=== PATIENT | female | born 1955 | race Caucasian/White ===

== ENCOUNTER 2017-01-10 16:57 | Inpatient (IN) | payer BC ==
[2017-01-10 17:51] LABS: #Lymphocytes 1.3 thou/uL (1.20-3.40); #Neutrophils 10.5 thou/uL (1.40-6.50); %Basophils 0.2 % (0.0-1.0); %Eosinophils 0.1 % (0.0-10.0); %Lymphocytes 9.6 % (21.0-51.0); %Monocytes 14.2 % (0.0-10.0); Hematocrit 28.7 % (36.0-47.0); Mean Platelet Volume 7.2 fL (7.4-10.4); Red Blood Cell (RBC) Count 3.09 mill/uL (4.20-5.40); White Blood Cell (WBC) Count 13.8 thou/uL (4.8-10.8)
[2017-01-10 17:57] LABS: PTT 34.4 SEC (22.9-36.1); Prothrombin Time 16.1 SEC (12.0-14.7)
[2017-01-10 18:11] LABS: Bilirubin Negative (Negative); Blood, Urine Moderate (Negative); Glucose, Urine (Dipstick) 100 mg/dL (Negative); Ketone, Urine Negative (Negative); Protein, Urine (Dipstick) 100 mg/dL (Neg-Trace)
[2017-01-10 18:12] LABS: Nitrite Positive (Negative); Urobilinogen 0.2 mg/dL (0.2-1.0)
[2017-01-10 18:17] LABS: ALT (SGPT) Less than 7 U/L (8-55); AST (SGOT) 6 U/L (5-34); Alkaline Phosphatase 76 U/L (40-150); Anion Gap 14 mmol/L (10-20); BUN (Urea Nitrogen) 22 mg/dL (9.8-20.1); Bilirubin, Total 0.5 mg/dL (0.2-1.2); Calc. Creatinine Clearance 0 mL/min (70-130); Carbon Dioxide 21 mmol/L (23-31); Chloride 102 mmol/L (98-107); Estimated GFR-MDRD 36; Globulin 3.2 g/dL (2.4-3.5); Lipase Less than 4 U/L (8-78); Protein, Total 5.9 g/dL (6.0-8.3)
[2017-01-10 18:20] LABS: Troponin I Less than 0.010 ng/mL (< 0.028)
[2017-01-10 18:24] LABS: Magnesium 0.9 mg/dL (1.6-2.6)
[2017-01-10 18:30] LABS: Bacteria/HPF 4+ HPF (None Seen); Hyaline Casts/LPF 0-3 HYALINE CAST LPF (0-3 Hyaline)
[2017-01-10] MEDS ORDERED: Fentanyl 100 MCG/2 ML VIAL ONE (18:31)
[2017-01-10] MEDS ORDERED: Magnesium Sulfate 2 GM/100 ML BAG ONE ×2 (18:31→19:39)
[2017-01-10 18:37] LABS: Amphetamine Not Detected (NotDetected); Methadone Not Detected (NotDetected); Methamphetamine Not Detected (NotDetected)
[2017-01-10 18:47] LABS: Yeast-All Forms None Seen HPF (None Seen)
[2017-01-10 18:51] LABS: Salicylate Less than 8.0 mg/dL (15.0-30.0)
--- NOTE | 2017-01-10 19:16 | RAD ---
AP CHEST: Indication: Fever, not feeling well for the last seven days. Comparison: 11-04-16 FINDINGS: There is patchy opacity within the right lung base suspicious for pneumonia. Mild cardiomegaly is st able. No acute osseous abnormality is evident. IMPRESSION: Findings suspicious for right lower lobe pneumonia. Radiographic follow up to resolution is recommen ded. POS: [facility]
[2017-01-10] MEDS ORDERED: cefTRIAXone\\ROCEPHIN 1 GM VIAL ONE (19:38)
[2017-01-10] MEDS ORDERED: Sodium Chloride 0.9% 100 ML ONE (19:38)
[2017-01-10] MEDS ORDERED: GENTAMICIN SULFATE IVPB SCH (20:00)
[2017-01-10] MEDS ORDERED: SODIUM CHLORIDE 0.9% IVPB SCH (20:00)
--- NOTE | 2017-01-10 20:16 | CT ---
CT OF THE BRAIN WITHOUT CONTRAST: Indication: 61-year-old female with history of nausea, vomiting, and diarrhea for 7 days. Patient escalera s a history of hypertension and reports history of Xanax abuse and opioid use. Patient is having alt ered mental status. Comparison: 12-28-15 FINDINGS: The skull and extracranial soft tissues are within normal limits. There is stable generalized cerebral atrophy. There is stable chronic small vessel white matter ischemic change. No acute infarct, hemorrhage, or hydrocephalus is present. Septum pellucidum and third ventricle are midline. IMPRESSION: No acute intracranial abnormality. POS: [facility]
--- NOTE | 2017-01-10 20:21 | CT ---
CT OF THE ABDOMEN AND PELVIS WITH IV CONTRAST: Indication: 61-year-old female with reports of nausea, vomiting, and diarrhea for 7 days. Patient al so reports abdominal pain with fever and night sweats. Comparison: 10-04-16 FINDINGS: ABDOMEN: The lung bases are clear. The gallbladder is surgically absent. The liver, spleen, pancreas, and adrenal glands are normal appearing. There is small hiatal hernia. There has been interval development of mild bilateral perinephric stranding with mild urothelial enh ancement involving the right renal pelvis and right ureter. There is wall thickening with perivesicu lar fat stranding involving the bladder. There are renal vascular calcifications bilaterally. No enlarged lymph nodes are evident. There are severe vascular calcifications involving the abdominal aorta and pelvic vasculature. PELVIS: The uterus is not visualized and presumed to be surgically absent. The unopacified large and small bowel appear within normal limits. The appendix is normal in the rig ht lower quadrant. No drainable fluid collection is evident. OSSEOUS STRUCTURES: There is grade I anterolisthesis of L4 on L5. There is moderate to severe spondylosis of the lumbar spine. There is vacuum disc phenomenon at L4-5 with modic endplate degenerative changes likely relat ed to disc instability. IMPRESSION: 1. Findings suspicious for cystitis and bilateral ascending urinary tract infections. Pyelonephritis is also suspected. No drainable fluid collection is evident. 2. Small hiatal hernia. 3. Cholecystectomy. 4. Hysterectomy. 5. Severe disc degenerative and osteoarthritic change at L4-5 with moderate multilevel spondylosis o f the lumbar spine. POS: [facility]
--- NOTE | 2017-01-10 20:29 | PDOC.EVN ---
Event Note - Event Note Event Note: [id number] h&p dictated 1. UTI + Possible pyelonephritis 2. Nausea and vomiting and diarrhea 3. SAMMIE 4. Hypomagnesemia 5. Sepsis plan: see orders
[2017-01-10] MEDS ORDERED: Acetaminophen 325 MG TAB PO PRN (20:58)
[2017-01-10] MEDS ORDERED: Mometasone/Formoterol 120 PUFF INHALER INH PRN (21:01)
[2017-01-10 21:15] LABS: Troponin I Less than 0.010 ng/mL (< 0.028)
[2017-01-10 23:58] LABS: Troponin I Less than 0.010 ng/mL (< 0.028)
[2017-01-11] MEDS: Methocarbamol 500 MG TAB PO SCH ×6 (00:10→21:21)
[2017-01-11] MEDS: Famotidine 20 MG TAB PO SCH ×3 (00:12→21:22)
[2017-01-11] MEDS: Heparin 5,000 UNITS/ML VIAL SC SCH ×4 (00:12→21:20)
[2017-01-11] MEDS: Sodium Chloride 0.9% 1,000 ML IV SCH ×3 (00:13→22:40)
[2017-01-11] MEDS: Piperacillin/Tazobactam 3.375 GM in Sodium Chloride 0.9% 100 ML IVPB SCH ×4 (00:15→18:00)
[2017-01-11] MEDS: HYDROcodone/Acetaminophen 5/325 mg Tablet PO PRN ×2 (00:19→10:47)
[2017-01-11 05:19] LABS: #Basophils 0.1 thou/uL (0.0-0.2); #Eosinphils 0.1 thou/uL (0.0-0.7); #Lymphocytes 1.9 thou/uL (1.20-3.40); #Monocytes 1.4 thou/uL (0.11-0.59); #Neutrophils 8.1 thou/uL (1.40-6.50); %Basophils 0.7 % (0.0-1.0); %Eosinophils 0.6 % (0.0-10.0); %Lymphocytes 16.1 % (21.0-51.0); %Monocytes 12.1 % (0.0-10.0); Hematocrit 27.7 % (36.0-47.0); Mean Platelet Volume 6.9 fL (7.4-10.4); Red Blood Cell (RBC) Count 2.99 mill/uL (4.20-5.40); White Blood Cell (WBC) Count 11.4 thou/uL (4.8-10.8)
[2017-01-11 05:42] LABS: Anion Gap 10 mmol/L (10-20); BUN (Urea Nitrogen) 24 mg/dL (9.8-20.1); Calc. Creatinine Clearance 54 mL/min (70-130); Calcium 8.5 mg/dL (7.8-10.44); Carbon Dioxide 25 mmol/L (23-31); Chloride 103 mmol/L (98-107); Estimated GFR-MDRD 36; Magnesium 2.4 mg/dL (1.6-2.6)
--- NOTE | 2017-01-11 06:52 | HP ---
CHIEF COMPLAINT: Nausea, vomiting, and diarrhea. HISTORY OF PRESENT ILLNESS: The patient is a 61-year-old female with past medical history of hypert ension, hyperlipidemia, has having vomiting and diarrhea for the past 1 week; 2 to 3 episodes of loo se watery bowel movement and also complains of vomiting 2 to 3 episodes. The patient was extremely weak. The patient was also complaining of dysuria and increased frequency and micturition for the p ast few days. The patient was feeling very tired, so she called paramedics. Upon paramedics' arriv al, the patient was found to have blood pressure of 80/60s, so the patient was brought to the ER. T he patient was given fluid bolus and blood pressure improved. The patient denies any chest pain and denies any dizziness, and denies lightheadedness, but complains of generalized weakness. Denies an y recent antibiotic usage. PAST MEDICAL HISTORY: As per HPI. PAST SURGICAL HISTORY: Cardiac catheterization. SOCIAL HISTORY: Denies smoking, denies alcohol, denies any drugs. FAMILY HISTORY: Denies any heart problems. MEDICATIONS: Reviewed. REVIEW OF SYSTEMS: Constitutional: Positive for generalized weakness. Denies any fevers or chills . Eyes: No vision problems. Ears: Denies hearing loss. Neck: Denies any neck pain. Cardiovasc ular: Denies any chest pain, denies any palpitations. Respiratory: Denies any cough, denies sputu m production. Gastrointestinal: Positive for nausea, vomiting, diarrhea, positive for abdominal pa in. Genitourinary: Positive for dysuria and increased frequency and micturition. Musculoskeletal: Denies any joint deformities. Integumentary: Denies any rash. Psychiatric: Positive for depres cher and anxiety. All other review of systems is reviewed and are negative. PHYSICAL EXAMINATION: VITAL SIGNS: At the time of H and P performed, blood pressure is 101/50, afebrile, respiratory rate 18, pulse ox 97%. GENERAL: The patient appears tired. HEENT: Anterior nares patent. Teeth intact. Tongue is moist. NECK: Supple. No JVD. CARDIOVASCULAR: S1, S2 present. Regular rate and rhythm. No murmurs, no rubs, no gallops. RESPIRATORY: No wheezing, no rhonchi. Breath sounds bilaterally. GASTROINTESTINAL: Abdomen is soft, nontender, no guarding, no organomegaly, no masses felt. MUSCULOSKELETAL: No edema. No obvious rashes. No joint deformities. CRANIAL NERVE SYSTEM: Cranial nerves intact. Follows commands. Strength intact, sensory intact. PSYCHIATRIC: Mood is appropriate at this time. GENITOURINARY: No suprapubic tenderness. No inguinal tenderness. INTEGUMENTARY: No obvious rashes seen. LABORATORY DATA: At the time of H and P performed, white count 13.8, hemoglobin 9.4, platelet count is 244. PT 16.1, INR 1.3. BMP showed sodium 133, potassium 3.7, chloride 102, CO2 of 21, BUN of 2 2, creatinine 1.46, glucose 138, calcium 8, magnesium 0.9, troponin is 0.010. BNP is 780. Albumin is 2.7. Urine, positive for protein, positive for glucose, moderate blood, positive nitrites, wbc's greater than 50 to too numerous to count, bacteria 4+. IMAGING: CT abdomen and pelvis showed bilateral perinephric stranding and urothelial enhancement in volving the right renal pelvis and right ureter, possible suspicious for cystitis and ascending urin kadie tract infection, pyelonephritis also suspect, degenerative disk disease seen. ASSESSMENT AND PLAN: The patient is a 61-year-old female. 1. Urinary tract infection, possible pyelonephritis. Plan to start patient on broad spectrum antib iotics. Plan to monitor the patient closely. 2. Nausea, vomiting, and diarrhea could be secondary to urinary tract infection. Plan to give p.r. n. antiemetics. Plan to check stool for C. diff and we will follow the patient closely. 3. Hypomagnesemia, severe. We will go ahead give another 2 grams of magnesium sulfate. We will mo nitor the patient closely. 4. Sepsis secondary to urinary tract infection. Plan to start the patient on IV fluids. Plan to m onitor blood pressure closely. Hold blood pressure medications. 5. History of acute kidney disease. Monitor creatinine closely. Repeat BMP in a.m. The case was discussed in detail with the patient.
[2017-01-11] MEDS: TROSPIUM 20 MG TABLET PO SCH ×2 (10:10→21:22)
[2017-01-11] MEDS: Escitalopram Oxalate 20 mg Tablet PO SCH (10:14)
--- NOTE | 2017-01-11 19:40 | PRG ---
DATE OF SERVICE: 01/11/2017 SUBJECTIVE: This patient is doing a little better today. Still a little nauseous, no chest pain, n o shortness of breath, is quiet weak. OBJECTIVE: VITAL SIGNS: Blood pressure is 147/65, temperature afebrile, pulse is 97, respirations 18. GENERAL: Patient is lying in bed in no apparent distress. HEENT: Atraumatic, normocephalic. Pupils equally round, react to light. Extraocular movements int act. Mucous membranes are moist. NECK: No JVD. CHEST: Breath sounds heard. No rales or rhonchi. HEART: S1, S2 normal. No murmurs or gallops. ABDOMEN: Soft, nontender, no guarding. EXTREMITIES: No cyanosis, clubbing, edema. Distal pulses present. NEUROLOGIC: Alert, awake, oriented. No cranial deficits. No sensorimotor deficits. LABORATORY DATA: WBC count is 11, hemoglobin is 8.9. Potassium is 3.7, creatinine of 1.4. CT head shows no acute abnormalities. EF is 55% done in 10/2016. ASSESSMENT AND PLAN: 1. Urinary tract infection, possible pyelonephritis. Continue broad spectrum antibiotics and follo w cultures. 2. Nausea, vomiting, and diarrhea. Continue p.r.n. medications. Check stool for Clostridium diffi cile. 3. Hypomagnesemia, resolved. 4. Acute kidney disease. 5. Monitor potassium closely. 6. Hypertension, stable. I will follow the labs and do the need for.
[2017-01-11] MEDS ORDERED: Non-Formulary Item 1 EACH (Ezetimibe/Simvastatin [Vytorin] 1 TABLET) PO SCH (21:00)
[2017-01-11] MEDS: Ezetimibe 10 MG TAB PO SCH (21:21)
[2017-01-11] MEDS: Amitriptyline HCl 25 MG TAB PO SCH (21:22)
[2017-01-11] MEDS: Simvastatin 40 MG TAB PO SCH (21:23)
[2017-01-12] MEDS: Methocarbamol 500 MG TAB PO SCH ×3 (00:37→08:58)
[2017-01-12] MEDS: Piperacillin/Tazobactam 3.375 GM in Sodium Chloride 0.9% 100 ML IVPB SCH ×3 (00:37→11:45)
[2017-01-12] MEDS: Sodium Chloride 0.9% 1,000 ML IV SCH ×2 (00:40→06:35)
[2017-01-12 05:47] LABS: #Basophils 0.1 thou/uL (0.0-0.2); #Eosinphils 0.2 thou/uL (0.0-0.7); #Lymphocytes 2.4 thou/uL (1.20-3.40); #Neutrophils 6.8 thou/uL (1.40-6.50); %Basophils 0.7 % (0.0-1.0); %Eosinophils 2.2 % (0.0-10.0); %Lymphocytes 23.1 % (21.0-51.0); %Monocytes 9.1 % (0.0-10.0); Hematocrit 26.8 % (36.0-47.0); Mean Platelet Volume 6.8 fL (7.4-10.4); Red Blood Cell (RBC) Count 2.85 mill/uL (4.20-5.40); White Blood Cell (WBC) Count 10.5 thou/uL (4.8-10.8)
[2017-01-12 06:10] LABS: Anion Gap 13 mmol/L (10-20); BUN (Urea Nitrogen) 20 mg/dL (9.8-20.1); Calc. Creatinine Clearance 55 mL/min (70-130); Calcium 8.4 mg/dL (7.8-10.44); Carbon Dioxide 23 mmol/L (23-31); Chloride 105 mmol/L (98-107); Estimated GFR-MDRD 36
[2017-01-12] MEDS: Heparin 5,000 UNITS/ML VIAL SC SCH ×3 (08:55→21:51)
[2017-01-12] MEDS: Escitalopram Oxalate 20 mg Tablet PO SCH (08:57)
[2017-01-12] MEDS: Famotidine 20 MG TAB PO SCH ×2 (08:57→21:50)
[2017-01-12] MEDS: TROSPIUM 20 MG TABLET PO SCH (11:44)
--- NOTE | 2017-01-12 13:10 | PDOC.PN ---
- Subjective Encounter Start Date: 01/12/17 Encounter Start Time: 13:08 Patient seen and examined. No new complaints. No overnight events - Objective MAR Reviewed: Yes Vital Signs & Weight: Vital Signs (12 hours) Temp Pulse Resp BP BP Pulse Ox 01/12/17 08:56 150/62 H 01/12/17 08:00 96.9 F L 68 18 150/62 H 96 01/12/17 04:00 98.2 F 75 20 104/52 L 99 Weight Admit Weight 195 lb 1.6 oz Weight 196 lb 9.6 oz I&O: 01/11/17 01/12/17 01/13/17 06:59 06:59 06:59 Intake Total 868 4130 Output Total 3 Balance 868 4127 Result Diagrams: 01/12/17 05:24 01/12/17 05:24 Phys Exam - Physical Examination HEENT: PERRLA Neck: no JVD Respiratory: no rales Cardiovascular: no significant murmur Gastrointestinal: non-tender Musculoskeletal: pulses present Neurological: moves all 4 limbs Psychiatric: A&O x 3 Dx/Plan (1) UTI (urinary tract infection) Status: Acute Comment: e coli (2) Nausea & vomiting Code(s): R11.2 - NAUSEA WITH VOMITING, UNSPECIFIED Status: Acute (3) CKD (chronic kidney disease) stage 3, GFR 30-59 ml/min Status: Chronic (4) COPD (chronic obstructive pulmonary disease) Status: Chronic (5) Diabetes type 2, controlled Code(s): E11.9 - TYPE 2 DIABETES MELLITUS WITHOUT COMPLICATIONS Status: Chronic (6) Dyslipidemia Code(s): E78.5 - HYPERLIPIDEMIA, UNSPECIFIED Status: Chronic (7) Hypertension Code(s): I10 - ESSENTIAL (PRIMARY) HYPERTENSION Status: Chronic - Plan doing well, change abx to levaquin pt eval d/c home in am if better
[2017-01-12] MEDS: Ondansetron HCl/PF 4 MG/2 ML Vial IVP PRN (17:22)
[2017-01-12] MEDS: Ezetimibe 10 MG TAB PO SCH (21:51)
[2017-01-12] MEDS: Simvastatin 40 MG TAB PO SCH (21:51)
[2017-01-12] MEDS: Amitriptyline HCl 25 MG TAB PO SCH (21:51)
[2017-01-12] MEDS: HYDROcodone/Acetaminophen 5/325 mg Tablet PO PRN (23:18)
[2017-01-13 06:42] LABS: #Basophils 0.1 thou/uL (0.0-0.2); #Eosinphils 0.6 thou/uL (0.0-0.7); #Lymphocytes 2.7 thou/uL (1.20-3.40); #Monocytes 0.9 thou/uL (0.11-0.59); #Neutrophils 5.3 thou/uL (1.40-6.50); %Basophils 0.5 % (0.0-1.0); %Eosinophils 5.8 % (0.0-10.0); %Lymphocytes 28.1 % (21.0-51.0); %Monocytes 9.1 % (0.0-10.0); Hematocrit 29.1 % (36.0-47.0); Mean Platelet Volume 7.1 fL (7.4-10.4); Red Blood Cell (RBC) Count 3.12 mill/uL (4.20-5.40); White Blood Cell (WBC) Count 9.4 thou/uL (4.8-10.8)
[2017-01-13 07:01] LABS: Anion Gap 11 mmol/L (10-20); BUN (Urea Nitrogen) 15 mg/dL (9.8-20.1); BUN/Creatinine Ratio 11.28; Calc. Creatinine Clearance 61 mL/min (70-130); Carbon Dioxide 23 mmol/L (23-31); Chloride 108 mmol/L (98-107); Estimated GFR-MDRD 40; Phosphorus 3.2 mg/dL (2.3-4.7)
[2017-01-13] MEDS: Heparin 5,000 UNITS/ML VIAL SC SCH ×3 (07:31→21:38)
[2017-01-13] MEDS: Ondansetron HCl/PF 4 MG/2 ML Vial IVP PRN ×2 (07:31→17:03)
[2017-01-13] MEDS: Escitalopram Oxalate 20 mg Tablet PO SCH (07:32)
--- NOTE | 2017-01-13 11:23 | PDOC.PN ---
- Subjective Encounter Start Date: 01/13/17 Encounter Start Time: 11:21 not feeling well has crampy abd pain has diarrhea, but says that she has been constipated for 8 days no dysuria, no f/c, no n/v - Objective MAR Reviewed: Yes Vital Signs & Weight: Vital Signs (12 hours) Temp Pulse Resp BP BP Pulse Ox 01/13/17 07:31 184/73 H 01/13/17 07:30 99.0 F 88 18 188/86 H 98 01/13/17 04:00 97.6 F 86 20 154/60 H 96 Weight Admit Weight 195 lb 1.6 oz Weight 195 lb 8 oz I&O: 01/12/17 01/13/17 01/14/17 06:59 06:59 06:59 Intake Total 4130 1797 Output Total 3 2350 Balance 4127 -553 Result Diagrams: 01/13/17 06:10 01/13/17 06:10 Phys Exam - Physical Examination Constitutional: NAD HEENT: PERRLA Neck: no JVD Respiratory: no wheezing Cardiovascular: no significant murmur Gastrointestinal: positive bowel sounds generalised tenderness Musculoskeletal: pulses present Neurological: moves all 4 limbs Psychiatric: A&O x 3 Dx/Plan (1) UTI (urinary tract infection) Status: Resolved Comment: e coli (2) Nausea & vomiting Code(s): R11.2 - NAUSEA WITH VOMITING, UNSPECIFIED Status: Acute (3) CKD (chronic kidney disease) stage 3, GFR 30-59 ml/min Status: Chronic (4) COPD (chronic obstructive pulmonary disease) Status: Chronic (5) Diabetes type 2, controlled Code(s): E11.9 - TYPE 2 DIABETES MELLITUS WITHOUT COMPLICATIONS Status: Chronic (6) Dyslipidemia Code(s): E78.5 - HYPERLIPIDEMIA, UNSPECIFIED Status: Chronic (7) Hypertension Code(s): I10 - ESSENTIAL (PRIMARY) HYPERTENSION Status: Chronic (8) Diarrhea Code(s): R19.7 - DIARRHEA, UNSPECIFIED Status: Acute Comment: pt has been constipated for a long time - Plan * f/u stool studies, kub * continue current care
[2017-01-13 11:54] LABS: Anion Gap 12 mmol/L (10-20); BUN (Urea Nitrogen) 15 mg/dL (9.8-20.1); Calc. Creatinine Clearance 62 mL/min (70-130); Calcium 9.2 mg/dL (7.8-10.44); Carbon Dioxide 25 mmol/L (23-31); Chloride 106 mmol/L (98-107); Estimated GFR-MDRD 42; Magnesium 1.2 mg/dL (1.6-2.6)
--- NOTE | 2017-01-13 14:05 | RAD ---
KUB: Comparison: CT abdomen/pelvis, 01-10-17. History: Renal calculi. FINDINGS: A single view of the abdomen shows a nonspecific, nonobstructed bowel gas pattern. Cholecystectomy c lips are seen. There are calcifications projecting along the mediastinal aspect of both renal shadow s which may represent calcifications seen in the hilar regions of the kidneys on prior CT. IMPRESSION: Bilateral nephrolithiasis. POS: [facility]
[2017-01-13 14:31] VITALS: BMI 33.5
--- NOTE | 2017-01-13 14:42 | PQF ---
CLINICAL DOCUMENTATION IMPROVEMENT CLARIFICATION FORM: ICD-10 Updated PLEASE DO AN ADDENDUM TO THE PROGRESS NOTE WITH ANY DOCUMENTATION UPDATES OR ADDITIONS AND CARRY THROUGH TO DC SUMMARY. THANK YOU. DATE: 01/13/17 ATTN: DR. JEFF The following CLINICAL INDICATORS - SIGNS / SYMPTOMS are present in the medical record: EVENT NOTE 01/10: "SEPSIS" H&P: "SEPSIS SECONDARY TO URINARY TRACT INFECTION" WBC 13.8 BP 80/39 RISKS: UTI TREATMENT: GENTAMYCIN IV (ER) ROCEPHIN IV (ER) LEVAQUIN (01/13-PRESENT) URINE AND BLOOD CULTURES SERIAL LABS CARDIAC MONITORING Please provide a response below if a more specific term indicating a diagnosis and/or acuity level for this condition can be identified. Please exercise your independent, professional judgment in responding to the clarification form. Present on Admission:[ ] Yes[ ] No[ ] Unable to determine [ ] Sepsis (include causative agent if known) Due to: [ ] Device [ ] Implant [ ] Graft [ ] Infusion [ ] [ ] SIRS due to non-infectious process [ ] with organ dysfunction [ ] without organ dysfunction [ ] Severe sepsis with acute organ dysfunction of: (Examples: respiratory failure, encephalopathy, acute kidney failure, other) [ ] Septic shock [ ] Sepsis related to a device (i.e. port, IV line, pacer / ICD leads, Brock, etc.) [ ] Does not apply to this patient [ ] Unable to determine [ ] Other diagnosis Definitions [facility] clinic 2002: SIRS- clinical response to an insult, infection, or trauma that includes a systemic in?ammation as well as increased or decreased temp, increased pulse, respiration and white count. SEPSIS- SIRS due to infection without organ dysfunction. SEVERE SEPSIS- SIRS due to an infection that progress to organ dysfunction. SEPTIC SHOCK- circulatory failure associated with severe sepsis, and represents a type of acute organ dysfunction. (This form is maintained as a part of the permanent medical record) 2015 [email or web address], [email or web address]. All Rights Reserved DILAN [email or web address] Office: [phone] [facility]
[2017-01-13] MEDS: HYDROcodone/Acetaminophen 5/325 mg Tablet PO PRN (17:03)
[2017-01-13] MEDS ORDERED: Famotidine 20 MG TAB PO SCH (21:00)
[2017-01-13] MEDS: Ezetimibe 10 MG TAB PO SCH (21:37)
[2017-01-13] MEDS: Simvastatin 40 MG TAB PO SCH (21:38)
[2017-01-13] MEDS: Amitriptyline HCl 25 MG TAB PO SCH (21:38)
[2017-01-14] MEDS: HYDROcodone/Acetaminophen 5/325 mg Tablet PO PRN ×3 (00:50→22:57)
[2017-01-14] MEDS: Ondansetron HCl/PF 4 MG/2 ML Vial IVP PRN (00:50)
[2017-01-14] MEDS ORDERED: Magnesium Sulfate 4 GM in Sodium Chloride 0.9% 250 ML 250 ML IVPB SCH (07:15)
[2017-01-14 07:52] LABS: Anion Gap 14 mmol/L (10-20); BUN (Urea Nitrogen) 14 mg/dL (9.8-20.1); BUN/Creatinine Ratio 11.76; Calc. Creatinine Clearance 68 mL/min (70-130); Calcium 9.5 mg/dL (7.8-10.44); Carbon Dioxide 24 mmol/L (23-31); Chloride 104 mmol/L (98-107); Estimated GFR-MDRD 46; Magnesium 1.5 mg/dL (1.6-2.6); Phosphorus 3.2 mg/dL (2.3-4.7)
[2017-01-14] MEDS: Escitalopram Oxalate 20 mg Tablet PO SCH (08:27)
[2017-01-14] MEDS: Heparin 5,000 UNITS/ML VIAL SC SCH ×3 (08:27→22:56)
[2017-01-14] MEDS ORDERED: Loperamide HCl 2 MG CAP PO PRN (12:07)
[2017-01-14] MEDS ORDERED: Calcium Carbonate 500 MG ChewTAB PO PRN (12:13)
--- NOTE | 2017-01-14 12:50 | PRG ---
DATE OF SERVICE: 01/14/2017 SUMMARY: A 61-year-old female with COPD, hypertension, diabetes mellitus type 2, and dyslipidemia, who was admitted on 01/10/2017 with nausea, vomiting, and diarrhea. WBC count on admission was 13.8 with creatinine of 1.46 and magnesium of 0.9. BNP was 780. Urine culture showed E. coli. CT scan of the abdomen and pelvis on admission was consistent with suspected bilateral pyelonephritis and c ystitis. She was placed on broad-spectrum antibiotics. An echocardiogram showed normal left ventri cular ejection fraction of 60-65% with normal diastolic dysfunction. SUBJECTIVE: The patient had some diarrhea yesterday; however, no episodes since morning. She had s ome GI cramping earlier today. No nausea, vomiting, fever, chills, dysuria, hematuria or urgency re ported. CURRENT MEDICATIONS: Reviewed. PHYSICAL EXAMINATION: VITAL SIGNS: Temperature 97.8 with respiration of 16, blood pressure of 148/62 with O2 saturation o f 97% on room air. GENERAL: A 61-year-old female in no apparent distress. LUNGS: Clear to auscultation bilaterally. HEART: S1, S2 present. Regular rate and rhythm. ABDOMEN: Soft. Bowel sounds somewhat hyperactive. No rebound or guarding. EXTREMITIES: No edema or calf tenderness. NEUROLOGIC: Grossly nonfocal. LABORATORY DATA AND DIAGNOSTIC DATA: 1. Telemetry monitoring by my review showed sinus rhythm. 2. Magnesium today was 1.5, it was 1.2 yesterday. 3. WBC count yesterday was 9.4. 4. Urine culture showed Escherichia coli. 5. Echocardiogram as discussed above. KUB yesterday showed nonobstructive bowel gas pattern. IMPRESSION: 1. Sepsis secondary to urinary tract infection/pyelonephritis. 2. Escherichia coli, urinary tract infection. 3. Diarrhea, probably secondary to urinary tract infection. Stool workup was essentially negative. Questionable mild colitis. 4. Chronic obstructive pulmonary disease. 5. Hypertension. 6. Diabetes mellitus type 2. 7. Dyslipidemia. 8. Acute kidney injury on chronic kidney disease stage 3. 9. Hypomagnesemia. 10. Chronic anemia. DISCHARGE PLAN: We will replace magnesium. We will resume nebulizer treatments. We will add Flagy l for possible colitis. We will repeat labs in a.m. Continue therapy. Possible discharge in 24 ho urs if stable.
[2017-01-14] MEDS: metroNIDAZOLE 500 MG TAB PO SCH ×2 (15:00→22:55)
[2017-01-14] MEDS: Saccharomyces boulardii 250 MG CAP PO SCH (22:55)
[2017-01-14] MEDS: Famotidine 20 MG TAB PO SCH (22:55)
[2017-01-14] MEDS: Ezetimibe 10 MG TAB PO SCH (22:56)
[2017-01-14] MEDS: Amitriptyline HCl 25 MG TAB PO SCH (22:56)
[2017-01-14] MEDS: Simvastatin 40 MG TAB PO SCH (22:56)
[2017-01-15 05:50] LABS: #Eosinphils 0.3 thou/uL (0.0-0.7); #Lymphocytes 2.6 thou/uL (1.20-3.40); #Monocytes 0.8 thou/uL (0.11-0.59); #Neutrophils 5.3 thou/uL (1.40-6.50); %Basophils 0.2 % (0.0-1.0); %Eosinophils 3.5 % (0.0-10.0); %Lymphocytes 28.4 % (21.0-51.0); %Monocytes 8.7 % (0.0-10.0); Mean Platelet Volume 6.6 fL (7.4-10.4); Red Blood Cell (RBC) Count 3.01 mill/uL (4.20-5.40)
[2017-01-15 06:52] LABS: Anion Gap 12 mmol/L (10-20); BUN (Urea Nitrogen) 16 mg/dL (9.8-20.1); BUN/Creatinine Ratio 14.41; Calc. Creatinine Clearance 72 mL/min (70-130); Carbon Dioxide 27 mmol/L (23-31); Chloride 102 mmol/L (98-107); Estimated GFR-MDRD 50; Magnesium 1.8 mg/dL (1.6-2.6); Phosphorus 3.9 mg/dL (2.3-4.7)
[2017-01-15] MEDS: HYDROcodone/Acetaminophen 5/325 mg Tablet PO PRN ×3 (09:05→20:10)
[2017-01-15] MEDS: metroNIDAZOLE 500 MG TAB PO SCH ×3 (09:06→20:11)
[2017-01-15] MEDS: Famotidine 20 MG TAB PO SCH ×2 (09:06→20:12)
[2017-01-15] MEDS: Escitalopram Oxalate 20 mg Tablet PO SCH (09:07)
[2017-01-15] MEDS: Heparin 5,000 UNITS/ML VIAL SC SCH ×3 (09:07→20:12)
--- NOTE | 2017-01-15 12:17 | PDOC.PN ---
- Subjective Encounter Start Date: 01/15/17 Encounter Start Time: 10:30 Patient seen and examined. Feels gen weak. SOB on exertion. Some diarrhea. Does not feel ready to go home. No overnight events - Objective Resuscitation Status: Resuscitation Status FULL:Full Resuscitation MAR Reviewed: Yes Vital Signs & Weight: Vital Signs (12 hours) Temp Pulse Resp BP BP Pulse Ox 01/15/17 11:50 97.9 F 84 18 124/57 L 94 L 01/15/17 10:19 83 16 01/15/17 09:07 145/63 H 01/15/17 09:00 98.6 F 82 18 145/63 H 98 01/15/17 06:39 99 01/15/17 06:38 65 16 01/15/17 04:00 97.5 F L 67 18 143/63 H 97 Weight Admit Weight 195 lb 1.6 oz Weight 194 lb 8 oz I&O: 01/14/17 01/15/17 01/16/17 06:59 06:59 06:59 Intake Total 2480 1414 Output Total 600 550 Balance 1880 864 Result Diagrams: 01/15/17 05:18 01/15/17 05:18 EKG Reviewed by me: Yes (Tele SR) Phys Exam - Physical Examination Constitutional: NAD Respiratory: no wheezing, no rales, no rhonchi Cardiovascular: RRR, no rub Gastrointestinal: soft, non-tender, no distention, positive bowel sounds Musculoskeletal: no edema Neurological: non-focal, moves all 4 limbs Psychiatric: A&O x 3 Dx/Plan - Plan IMPRESSION: 1. Sepsis secondary to urinary tract infection/pyelonephritis. 2. Escherichia coli, urinary tract infection. on Levaquin 3. Diarrhea, probably secondary to urinary tract infection. ? mild colitis. on Flagyl 4. Chronic obstructive pulmonary disease with probable mild exacerbation. 5. Hypertension. 6. Diabetes mellitus type 2. on sliding scale 7. Dyslipidemia. 8. Acute kidney injury on chronic kidney disease stage 3. improved 9. Hypomagnesemia. 10. Chronic anemia. PLAN: * Cont current meds as below * DC in AM if stable * Will assess for home O2 in AM Review of Systems - Review of Systems Constitutional: negative: Fever, Chills, Sweats, Weakness, Malaise, Other Respiratory: Cough, Dry, SOB with Excertion Cardiovascular: negative: Chest Pain, Palpitations, Orthopnea, Paroxysmal Noc. Dyspnea, Edema, Light Headedness, Other Gastrointestinal: negative: Nausea, Vomiting, Abdominal Pain, Diarrhea, Constipation, Melena, Hematochezia, Other Neurological: negative: Weakness, Numbness, Incoordination, Change in Speech, Confusion, Seizures, Other - Medications/Allergies Allergies/Adverse Reactions: Allergies Allergy/AdvReac Type Severity Reaction Status Date / Time clindamycin Allergy Nausea Verified 01/11/17 04:48 metformin Allergy Nausea Verified 01/11/17 04:48 naproxen Allergy Nausea Verified 01/11/17 04:48 tramadol Allergy Nausea Verified 01/11/17 04:48 tramadol HCl [From Ultra] Allergy Nausea Verified 01/11/17 04:48 Medications: Current Medications Acetaminophen (Tylenol) 650 mg PO Q4H PRN PRN Reason: Headache/Fever or Pain Hydrocodone Bitart/Acetaminophen ([place] 5/325) 1 tab PO Q4H PRN PRN Reason: Moderate Pain (4-6) Last Admin: 01/15/17 09:05 Dose: 1 tab Albuterol/Ipratropium (Duoneb) 3 ml NEB [id number] [facility] Last Admin: 01/15/17 10:19 Dose: 3 ml Albuterol/Ipratropium (Duoneb) 3 ml NEB Q2H PRN PRN Reason: SOB &/or Wheezing Amitriptyline HCl (Elavil) 25 mg PO [facility] Last Admin: 01/14/17 22:56 Dose: 25 mg Calcium Carbonate (Tums) 1,000 mg PO Q4H PRN PRN Reason: Heartburn or Indigestion Ezetimibe (Zetia) 10 mg PO [facility] Last Admin: 01/14/17 22:56 Dose: 10 mg Enalapril Maleate (Vasotec) 5 mg PO BID [facility] Last Admin: 01/15/17 09:07 Dose: 5 mg Escitalopram Oxalate (Lexapro) 20 mg PO DAILY [facility] Last Admin: 01/15/17 09:07 Dose: 20 mg Famotidine (Pepcid) 20 mg PO BID [facility] Last Admin: 01/15/17 09:06 Dose: 20 mg Heparin Sodium (Porcine) (Heparin) 5,000 units SC TID [facility] Last Admin: 01/15/17 09:07 Dose: 5,000 units Hydralazine HCl (Apresoline) 10 mg SLOW IVP Q4H PRN PRN Reason: SBP Greater Than 180 Hydralazine HCl (Apresoline) 10 mg SLOW IVP Q4H PRN PRN Reason: SBP Greater Than 180 Levofloxacin (Levaquin) 500 mg PO 0600 [facility] Last Admin: 01/15/17 05:58 Dose: 500 mg Loperamide HCl (Imodium) 2 mg PO PRN PRN PRN Reason: Diarrhea/Loose Stools Metaxalone (Skelaxin) 800 mg PO TIDPRN PRN PRN Reason: Muscle Spasm Metoprolol Succinate (Toprol Xl) 25 mg PO BID [facility] Last Admin: 01/15/17 09:06 Dose: 25 mg Metronidazole (Flagyl) 500 mg PO TID [facility] Last Admin: 01/15/17 09:06 Dose: 500 mg Mometasone Furoate/Formoterol Fumar (Dulera 200 Mcg/5 Mcg Inhaler) 2 puff INH BID-RT [facility] Ondansetron HCl (Zofran) 4 mg IVP Q6H PRN PRN Reason: Nausea/Vomiting Last Admin: 01/14/17 00:50 Dose: 4 mg Oxybutynin Chloride (Ditropan Xl) 10 mg PO DAILY [facility] Last Admin: 01/15/17 09:08 Dose: 10 mg Saccharomyces Boulardii (Florastor) 250 mg PO QPM [facility] Last Admin: 01/14/17 22:55 Dose: 250 mg Simvastatin (Zocor) 40 mg PO HS [facility] Last Admin: 01/14/17 22:56 Dose: 40 mg Sodium Chloride (Flush - Normal Saline) 10 ml IVF Q12HR [facility] Last Admin: 01/15/17 09:07 Dose: 10 ml Sodium Chloride (Flush - Normal Saline) 10 ml IVF PRN PRN PRN Reason: Saline Flush
[2017-01-15] MEDS: Mometasone/Formoterol 120 PUFF INHALER INH SCH (18:39)
[2017-01-15] MEDS: Saccharomyces boulardii 250 MG CAP PO SCH (20:11)
[2017-01-15] MEDS: Ezetimibe 10 MG TAB PO SCH (20:11)
[2017-01-15] MEDS: Simvastatin 40 MG TAB PO SCH (20:11)
[2017-01-15] MEDS: Amitriptyline HCl 25 MG TAB PO SCH (20:11)
[2017-01-16] MEDS: HYDROcodone/Acetaminophen 5/325 mg Tablet PO PRN ×4 (05:38→19:40)
[2017-01-16] MEDS: Mometasone/Formoterol 120 PUFF INHALER INH SCH ×2 (06:33→18:34)
[2017-01-16] MEDS: Escitalopram Oxalate 20 mg Tablet PO SCH (08:33)
[2017-01-16] MEDS: Famotidine 20 MG TAB PO SCH ×2 (08:33→20:26)
[2017-01-16] MEDS: metroNIDAZOLE 500 MG TAB PO SCH ×3 (08:35→20:26)
[2017-01-16] MEDS: Heparin 5,000 UNITS/ML VIAL SC SCH ×3 (08:38→20:26)
--- NOTE | 2017-01-16 11:43 | PDOC.PN ---
- Subjective Encounter Start Date: 01/16/17 Encounter Start Time: 11:30 Subjective: feels weak, no nausea or abd pain -: diarrhea is resolving - Objective Resuscitation Status: Resuscitation Status FULL:Full Resuscitation MAR Reviewed: Yes Vital Signs & Weight: Vital Signs (12 hours) Temp Pulse Resp BP BP Pulse Ox 01/16/17 10:48 71 16 96 01/16/17 08:34 96/60 01/16/17 08:01 97.8 F 71 18 96/60 97 01/16/17 08:00 97.8 F 71 18 96 01/16/17 06:30 83 16 96 01/16/17 04:00 97.7 F 62 20 150/82 H 96 01/16/17 00:00 98.0 F 78 20 128/76 100 Weight Admit Weight 195 lb 1.6 oz Weight 194 lb 8 oz I&O: 01/15/17 01/16/17 01/17/17 06:59 06:59 06:59 Intake Total 1414 810 Output Total 550 2 Balance 864 808 Result Diagrams: 01/15/17 05:18 01/15/17 05:18 Phys Exam - Physical Examination HEENT: PERRLA, moist MMs Neck: no JVD, supple Respiratory: no wheezing, no rales Cardiovascular: RRR, no significant murmur Gastrointestinal: soft, non-tender, no distention, positive bowel sounds Musculoskeletal: no edema, pulses present Neurological: non-focal, moves all 4 limbs Psychiatric: A&O x 3 Dx/Plan (1) UTI (urinary tract infection) Status: Acute Qualifiers: Urinary tract infection type: acute cystitis Hematuria presence: without hematuria Qualified Code(s): N30.00 - Acute cystitis without hematuria Comment: e coli (2) Diarrhea Code(s): R19.7 - DIARRHEA, UNSPECIFIED Status: Resolved Qualifiers: Diarrhea type: unspecified type Qualified Code(s): R19.7 - Diarrhea, unspecified Comment: pt has been constipated for a long time (3) CKD (chronic kidney disease) stage 3, GFR 30-59 ml/min Status: Chronic (4) COPD (chronic obstructive pulmonary disease) Status: Chronic Qualifiers: COPD type: unspecified COPD Qualified Code(s): J44.9 - Chronic obstructive pulmonary disease, unspecified (5) Diabetes type 2, controlled Code(s): E11.9 - TYPE 2 DIABETES MELLITUS WITHOUT COMPLICATIONS Status: Chronic Qualifiers: Diabetes mellitus complication detail: with chronic kidney disease Diabetes mellitus termite exterminator helper insulin use: without termite exterminator helper use Chronic kidney disease stage: stage 2 (mild) (6) Dyslipidemia Code(s): E78.5 - HYPERLIPIDEMIA, UNSPECIFIED Status: Chronic (7) Generalized anxiety disorder Code(s): F41.1 - GENERALIZED ANXIETY DISORDER Status: Chronic (8) Hypertension Code(s): I10 - ESSENTIAL (PRIMARY) HYPERTENSION Status: Chronic Qualifiers: Hypertension type: essential hypertension Qualified Code(s): I10 - Essential (primary) hypertension - Plan pt on multiple pain prn meds, will need bowel regimen on dc -: diarrhea is resolving with no loose bm overnight -: levaquin for uti, flagyl may be dc'd on discharge -: pt to ambulate in hallway -: dc plan in am * . Review of Systems - Medications/Allergies Allergies/Adverse Reactions: Allergies Allergy/AdvReac Type Severity Reaction Status Date / Time clindamycin Allergy Nausea Verified 01/11/17 04:48 metformin Allergy Nausea Verified 01/11/17 04:48 naproxen Allergy Nausea Verified 01/11/17 04:48 tramadol Allergy Nausea Verified 01/11/17 04:48 tramadol HCl [From Ultram] Allergy Nausea Verified 01/11/17 04:48 Medications: Current Medications Acetaminophen (Tylenol) 650 mg PO Q4H PRN PRN Reason: Headache/Fever or Pain Hydrocodone Bitart/Acetaminophen ([place] 5/325) 1 tab PO Q4H PRN PRN Reason: Moderate Pain (4-6) Last Admin: 01/16/17 11:00 Dose: 1 tab Albuterol/Ipratropium (Duoneb) 3 ml NEB [id number] SCH Last Admin: 01/16/17 10:48 Dose: 3 ml Albuterol/Ipratropium (Duoneb) 3 ml NEB Q2H PRN PRN Reason: SOB &/or Wheezing Amitriptyline HCl (Elavil) 25 mg PO [facility] Last Admin: 01/15/17 20:11 Dose: 25 mg Calcium Carbonate (Tums) 1,000 mg PO Q4H PRN PRN Reason: Heartburn or Indigestion Ezetimibe (Zetia) 10 mg PO [facility] Last Admin: 01/15/17 20:11 Dose: 10 mg Enalapril Maleate (Vasotec) 5 mg PO BID [facility] Last Admin: 01/16/17 08:34 Dose: Not Given Escitalopram Oxalate (Lexapro) 20 mg PO DAILY [facility] Last Admin: 01/16/17 08:33 Dose: 20 mg Famotidine (Pepcid) 20 mg PO BID [facility] Last Admin: 01/16/17 08:33 Dose: 20 mg Heparin Sodium (Porcine) (Heparin) 5,000 units SC TID [facility] Last Admin: 01/16/17 08:38 Dose: 5,000 units Hydralazine HCl (Apresoline) 10 mg SLOW IVP Q4H PRN PRN Reason: SBP Greater Than 180 Levofloxacin (Levaquin) 500 mg PO 0600 [facility] Last Admin: 01/16/17 05:38 Dose: 500 mg Loperamide HCl (Imodium) 2 mg PO PRN PRN PRN Reason: Diarrhea/Loose Stools Metaxalone (Skelaxin) 800 mg PO TIDPRN PRN PRN Reason: Muscle Spasm Metoprolol Succinate (Toprol Xl) 25 mg PO BID [facility] Last Admin: 01/16/17 08:35 Dose: Not Given Metronidazole (Flagyl) 500 mg PO TID [facility] Last Admin: 01/16/17 08:35 Dose: 500 mg Mometasone Furoate/Formoterol Fumar (Dulera 200 Mcg/5 Mcg Inhaler) 2 puff INH BID-RT [facility] Last Admin: 01/16/17 06:33 Dose: 2 puff Ondansetron HCl (Zofran) 4 mg IVP Q6H PRN PRN Reason: Nausea/Vomiting Last Admin: 01/14/17 00:50 Dose: 4 mg Oxybutynin Chloride (Ditropan Xl) 10 mg PO DAILY [facility] Last Admin: 01/16/17 08:36 Dose: 10 mg Saccharomyces Boulardii (Florastor) 250 mg PO QPM [facility] Last Admin: 01/15/17 20:11 Dose: 250 mg Simvastatin (Zocor) 40 mg PO HS [facility] Last Admin: 01/15/17 20:11 Dose: 40 mg Sodium Chloride (Flush - Normal Saline) 10 ml IVF Q12HR [facility] Last Admin: 01/16/17 08:36 Dose: 10 ml Sodium Chloride (Flush - Normal Saline) 10 ml IVF PRN PRN PRN Reason: Saline Flush
[2017-01-16] MEDS: Saccharomyces boulardii 250 MG CAP PO SCH (20:24)
[2017-01-16] MEDS: Amitriptyline HCl 25 MG TAB PO SCH (20:24)
[2017-01-16] MEDS: Ezetimibe 10 MG TAB PO SCH (20:24)
[2017-01-16] MEDS: Simvastatin 40 MG TAB PO SCH (20:26)
[2017-01-17] MEDS: HYDROcodone/Acetaminophen 5/325 mg Tablet PO PRN ×4 (06:27→22:03)
[2017-01-17] MEDS: Ondansetron HCl/PF 4 MG/2 ML Vial IVP PRN (07:05)
[2017-01-17] MEDS: Mometasone/Formoterol 120 PUFF INHALER INH SCH ×2 (07:45→18:11)
[2017-01-17] MEDS: metroNIDAZOLE 500 MG TAB PO SCH ×3 (08:13→20:32)
[2017-01-17] MEDS: Escitalopram Oxalate 20 mg Tablet PO SCH (08:13)
[2017-01-17] MEDS: Famotidine 20 MG TAB PO SCH ×2 (08:13→20:32)
[2017-01-17] MEDS: Heparin 5,000 UNITS/ML VIAL SC SCH ×3 (08:14→20:32)
--- NOTE | 2017-01-17 14:41 | PDOC.PN ---
- Subjective Encounter Start Date: 01/17/17 Encounter Start Time: 11:30 -: old records requested/rev this morning pt was not feeling good to go home, had nausea and vomiting, no diarrhoea - Objective Resuscitation Status: Resuscitation Status FULL:Full Resuscitation MAR Reviewed: Yes Vital Signs & Weight: Vital Signs (12 hours) Temp Pulse Resp BP BP Pulse Ox 01/17/17 10:40 88 16 97 01/17/17 08:15 116/69 01/17/17 08:00 98.0 F 73 20 141/72 H 98 01/17/17 07:46 97 01/17/17 07:44 86 16 97 Weight Admit Weight 195 lb 1.6 oz Weight 194 lb 8 oz I&O: 01/16/17 01/17/17 01/18/17 06:59 06:59 06:59 Intake Total 810 2200 Output Total 2 Balance 808 2200 Result Diagrams: 01/15/17 05:18 01/15/17 05:18 Phys Exam - Physical Examination Constitutional: NAD HEENT: moist MMs Neck: no JVD, supple Respiratory: no wheezing, no rales, no rhonchi Cardiovascular: RRR, no significant murmur, no rub Gastrointestinal: soft, non-tender, no distention, positive bowel sounds Musculoskeletal: no edema, pulses present Neurological: non-focal, normal sensation Psychiatric: normal affect, A&O x 3 Skin: no rash, normal turgor Dx/Plan (1) Nausea & vomiting Code(s): R11.2 - NAUSEA WITH VOMITING, UNSPECIFIED Status: Acute (2) UTI (urinary tract infection) Status: Acute Qualifiers: Urinary tract infection type: acute cystitis Hematuria presence: without hematuria Qualified Code(s): N30.00 - Acute cystitis without hematuria Comment: e coli (3) CKD (chronic kidney disease) stage 3, GFR 30-59 ml/min Status: Chronic (4) COPD (chronic obstructive pulmonary disease) Status: Chronic Qualifiers: COPD type: unspecified COPD Qualified Code(s): J44.9 - Chronic obstructive pulmonary disease, unspecified (5) Dyslipidemia Code(s): E78.5 - HYPERLIPIDEMIA, UNSPECIFIED Status: Chronic (6) Generalized anxiety disorder Code(s): F41.1 - GENERALIZED ANXIETY DISORDER Status: Chronic (7) Hypertension Code(s): I10 - ESSENTIAL (PRIMARY) HYPERTENSION Status: Chronic Qualifiers: Hypertension type: essential hypertension Qualified Code(s): I10 - Essential (primary) hypertension (8) Diarrhea Code(s): R19.7 - DIARRHEA, UNSPECIFIED Status: Resolved Qualifiers: Diarrhea type: unspecified type Qualified Code(s): R19.7 - Diarrhea, unspecified Comment: pt has been constipated for a long time - Plan cont current plan of care, continue antibiotics * medication reviewed as below * symptomatic treatment * expecting discharge tomorrow on oral antibiotics * continue po levaquin and flagyl Review of Systems - Review of Systems ENT: negative: Ear Pain, Ear Discharge, Nose Pain, Nose Discharge, Nose Congestion, Mouth Pain, Mouth Swelling, Throat Pain, Throat Swelling, Other Respiratory: negative: Cough, Dry, Shortness of Breath, Hemoptysis, SOB with Excertion, Pleuritic Pain, Sputum, Wheezing Cardiovascular: negative: Chest Pain, Palpitations, Orthopnea, Paroxysmal Noc. Dyspnea, Edema, Light Headedness, Other Gastrointestinal: Nausea, Vomiting. negative: Abdominal Pain, Diarrhea, Constipation, Melena, Hematochezia, Other Genitourinary: negative: Dysuria, Frequency, Incontinence, Hematuria, Retention , Other Musculoskeletal: negative: Neck Pain, Shoulder Pain, Arm Pain, Back Pain, Hand Pain, Leg Pain, Foot Pain, Other Skin: negative: Rash, Lesions, [place], Bruising, Other - Medications/Allergies Allergies/Adverse Reactions: Allergies Allergy/AdvReac Type Severity Reaction Status Date / Time clindamycin Allergy Nausea Verified 01/11/17 04:48 metformin Allergy Nausea Verified 01/11/17 04:48 naproxen Allergy Nausea Verified 01/11/17 04:48 tramadol Allergy Nausea Verified 01/11/17 04:48 tramadol HCl [From Ultram] Allergy Nausea Verified 01/11/17 04:48 Medications: Current Medications Acetaminophen (Tylenol) 650 mg PO Q4H PRN PRN Reason: Headache/Fever or Pain Hydrocodone Bitart/Acetaminophen ([place] 5/325) 1 tab PO Q4H PRN PRN Reason: Moderate Pain (4-6) Last Admin: 01/17/17 11:30 Dose: 1 tab Albuterol/Ipratropium (Duoneb) 3 ml NEB [id number] [facility] Last Admin: 01/17/17 10:40 Dose: 3 ml Albuterol/Ipratropium (Duoneb) 3 ml NEB Q2H PRN PRN Reason: SOB &/or Wheezing Amitriptyline HCl (Elavil) 25 mg PO [facility] Last Admin: 01/16/17 20:24 Dose: 25 mg Calcium Carbonate (Tums) 1,000 mg PO Q4H PRN PRN Reason: Heartburn or Indigestion Ezetimibe (Zetia) 10 mg PO [facility] Last Admin: 01/16/17 20:24 Dose: 10 mg Enalapril Maleate (Vasotec) 5 mg PO BID [facility] Last Admin: 01/17/17 08:15 Dose: Not Given Escitalopram Oxalate (Lexapro) 20 mg PO DAILY [facility] Last Admin: 01/17/17 08:13 Dose: 20 mg Famotidine (Pepcid) 20 mg PO BID [facility] Last Admin: 01/17/17 08:13 Dose: 20 mg Heparin Sodium (Porcine) (Heparin) 5,000 units SC TID [facility] Last Admin: 01/17/17 14:25 Dose: 5,000 units Hydralazine HCl (Apresoline) 10 mg SLOW IVP Q4H PRN PRN Reason: SBP Greater Than 180 Levofloxacin (Levaquin) 500 mg PO 0600 [facility] Last Admin: 01/17/17 06:28 Dose: 500 mg Loperamide HCl (Imodium) 2 mg PO PRN PRN PRN Reason: Diarrhea/Loose Stools Metaxalone (Skelaxin) 800 mg PO TIDPRN PRN PRN Reason: Muscle Spasm Metoprolol Succinate (Toprol Xl) 25 mg PO BID [facility] Last Admin: 01/17/17 08:14 Dose: 25 mg Metronidazole (Flagyl) 500 mg PO TID [facility] Last Admin: 01/17/17 14:26 Dose: 500 mg Mometasone Furoate/Formoterol Fumar (Dulera 200 Mcg/5 Mcg Inhaler) 2 puff INH BID-RT [facility] Last Admin: 01/17/17 07:45 Dose: 2 puff Ondansetron HCl (Zofran) 4 mg IVP Q6H PRN PRN Reason: Nausea/Vomiting Last Admin: 01/17/17 07:05 Dose: 4 mg Oxybutynin Chloride (Ditropan Xl) 10 mg PO DAILY [facility] Last Admin: 01/17/17 08:13 Dose: 10 mg Saccharomyces Boulardii (Florastor) 250 mg PO QPM [facility] Last Admin: 01/16/17 20:24 Dose: 250 mg Simvastatin (Zocor) 40 mg PO HS [facility] Last Admin: 01/16/17 20:26 Dose: 40 mg Sodium Chloride (Flush - Normal Saline) 10 ml IVF Q12HR [facility] Last Admin: 01/17/17 08:16 Dose: 10 ml Sodium Chloride (Flush - Normal Saline) 10 ml IVF PRN PRN PRN Reason: Saline Flush
[2017-01-17] MEDS: Saccharomyces boulardii 250 MG CAP PO SCH (20:31)
[2017-01-17] MEDS: Ezetimibe 10 MG TAB PO SCH (20:32)
[2017-01-17] MEDS: Simvastatin 40 MG TAB PO SCH (20:32)
[2017-01-17] MEDS: Amitriptyline HCl 25 MG TAB PO SCH (20:32)
[2017-01-18] MEDS: HYDROcodone/Acetaminophen 5/325 mg Tablet PO PRN ×3 (06:03→14:31)
[2017-01-18] MEDS: Mometasone/Formoterol 120 PUFF INHALER INH SCH (06:24)
[2017-01-18] MEDS: Famotidine 20 MG TAB PO SCH (08:35)
[2017-01-18] MEDS: Escitalopram Oxalate 20 mg Tablet PO SCH (08:35)
[2017-01-18] MEDS: metroNIDAZOLE 500 MG TAB PO SCH ×2 (08:35→14:26)
[2017-01-18] MEDS: Heparin 5,000 UNITS/ML VIAL SC SCH ×2 (08:36→14:26)
[2017-01-18 08:37] VITALS: BP 114/71
[2017-01-18 08:39] VITALS: TEMP 97.7
--- NOTE | 2017-01-18 11:29 | PDOC.PN ---
- Subjective Encounter Start Date: 01/18/17 Encounter Start Time: 07:10 Patient seen and examined. No new complaints. No overnight events - Objective Resuscitation Status: Resuscitation Status FULL:Full Resuscitation MAR Reviewed: Yes Vital Signs & Weight: Vital Signs (12 hours) Temp Pulse Resp BP BP Pulse Ox 01/18/17 08:34 114/71 01/18/17 08:00 97.7 F 74 16 114/71 96 01/18/17 06:24 89 14 97 01/18/17 06:23 89 14 97 Weight Admit Weight 195 lb 1.6 oz Weight 194 lb 8 oz I&O: 01/17/17 01/18/17 01/19/17 06:59 06:59 06:59 Intake Total 2200 2300 Balance 2200 2300 Result Diagrams: 01/15/17 05:18 01/15/17 05:18 Phys Exam - Physical Examination Constitutional: NAD HEENT: PERRLA, moist MMs, sclera anicteric Neck: no JVD, supple Respiratory: no wheezing, no rales, no rhonchi Cardiovascular: RRR, no significant murmur, no rub Gastrointestinal: soft, non-tender, no distention, positive bowel sounds Musculoskeletal: no edema, pulses present Neurological: non-focal, normal sensation Psychiatric: normal affect, A&O x 3 Skin: no rash, normal turgor Dx/Plan (1) Nausea & vomiting Code(s): R11.2 - NAUSEA WITH VOMITING, UNSPECIFIED Status: Acute (2) UTI (urinary tract infection) Status: Acute Qualifiers: Urinary tract infection type: acute cystitis Hematuria presence: without hematuria Qualified Code(s): N30.00 - Acute cystitis without hematuria Comment: e coli (3) CKD (chronic kidney disease) stage 3, GFR 30-59 ml/min Status: Chronic (4) COPD (chronic obstructive pulmonary disease) Status: Chronic Qualifiers: COPD type: unspecified COPD Qualified Code(s): J44.9 - Chronic obstructive pulmonary disease, unspecified (5) Dyslipidemia Code(s): E78.5 - HYPERLIPIDEMIA, UNSPECIFIED Status: Chronic (6) Generalized anxiety disorder Code(s): F41.1 - GENERALIZED ANXIETY DISORDER Status: Chronic (7) Hypertension Code(s): I10 - ESSENTIAL (PRIMARY) HYPERTENSION Status: Chronic Qualifiers: Hypertension type: essential hypertension Qualified Code(s): I10 - Essential (primary) hypertension (8) Diarrhea Code(s): R19.7 - DIARRHEA, UNSPECIFIED Status: Resolved Qualifiers: Diarrhea type: unspecified type Qualified Code(s): R19.7 - Diarrhea, unspecified Comment: pt has been constipated for a long time - Plan cont current plan of care * medication reviewed as below * symptomatic treatment. * see discharge summery Review of Systems - Review of Systems ENT: negative: Ear Pain, Ear Discharge, Nose Pain, Nose Discharge, Nose Congestion, Mouth Pain, Mouth Swelling, Throat Pain, Throat Swelling, Other Respiratory: negative: Cough, Dry, Shortness of Breath, Hemoptysis, SOB with Excertion, Pleuritic Pain, Sputum, Wheezing Cardiovascular: negative: Chest Pain, Palpitations, Orthopnea, Paroxysmal Noc. Dyspnea, Edema, Light Headedness, Other Gastrointestinal: negative: Nausea, Vomiting, Abdominal Pain, Diarrhea, Constipation, Melena, Hematochezia, Other Genitourinary: negative: Dysuria, Frequency, Incontinence, Hematuria, Retention , Other Musculoskeletal: negative: Neck Pain, Shoulder Pain, Arm Pain, Back Pain, Hand Pain, Leg Pain, Foot Pain, Other - Medications/Allergies Allergies/Adverse Reactions: Allergies Allergy/AdvReac Type Severity Reaction Status Date / Time clindamycin Allergy Nausea Verified 01/11/17 04:48 metformin Allergy Nausea Verified 01/11/17 04:48 naproxen Allergy Nausea Verified 01/11/17 04:48 tramadol Allergy Nausea Verified 01/11/17 04:48 tramadol HCl [From Ultram] Allergy Nausea Verified 01/11/17 04:48 Medications: Current Medications Acetaminophen (Tylenol) 650 mg PO Q4H PRN PRN Reason: Headache/Fever or Pain Hydrocodone Bitart/Acetaminophen ([place] 5/325) 1 tab PO Q4H PRN PRN Reason: Moderate Pain (4-6) Last Admin: 01/18/17 09:55 Dose: 1 tab Albuterol/Ipratropium (Duoneb) 3 ml NEB [id number] SCH Last Admin: 01/18/17 09:47 Dose: Not Given Albuterol/Ipratropium (Duoneb) 3 ml NEB Q2H PRN PRN Reason: SOB &/or Wheezing Amitriptyline HCl (Elavil) 25 mg PO [facility] Last Admin: 01/17/17 20:32 Dose: 25 mg Calcium Carbonate (Tums) 1,000 mg PO Q4H PRN PRN Reason: Heartburn or Indigestion Ezetimibe (Zetia) 10 mg PO HS [facility] Last Admin: 01/17/17 20:32 Dose: 10 mg Enalapril Maleate (Vasotec) 5 mg PO BID [facility] Last Admin: 01/18/17 08:34 Dose: Not Given Escitalopram Oxalate (Lexapro) 20 mg PO DAILY [facility] Last Admin: 01/18/17 08:35 Dose: 20 mg Famotidine (Pepcid) 20 mg PO BID [facility] Last Admin: 01/18/17 08:35 Dose: 20 mg Heparin Sodium (Porcine) (Heparin) 5,000 units SC TID [facility] Last Admin: 01/18/17 08:36 Dose: 5,000 units Hydralazine HCl (Apresoline) 10 mg SLOW IVP Q4H PRN PRN Reason: SBP Greater Than 180 Levofloxacin (Levaquin) 500 mg PO 0600 [facility] Last Admin: 01/18/17 05:23 Dose: 500 mg Loperamide HCl (Imodium) 2 mg PO PRN PRN PRN Reason: Diarrhea/Loose Stools Metaxalone (Skelaxin) 800 mg PO TIDPRN PRN PRN Reason: Muscle Spasm Metoprolol Succinate (Toprol Xl) 25 mg PO BID [facility] Last Admin: 01/18/17 08:35 Dose: 25 mg Metronidazole (Flagyl) 500 mg PO TID [facility] Last Admin: 01/18/17 08:35 Dose: 500 mg Mometasone Furoate/Formoterol Fumar (Dulera 200 Mcg/5 Mcg Inhaler) 2 puff INH BID-RT [facility] Last Admin: 01/18/17 06:24 Dose: 2 puff Ondansetron HCl (Zofran) 4 mg IVP Q6H PRN PRN Reason: Nausea/Vomiting Last Admin: 01/17/17 07:05 Dose: 4 mg Oxybutynin Chloride (Ditropan Xl) 10 mg PO DAILY [facility] Last Admin: 01/18/17 08:35 Dose: 10 mg Saccharomyces Boulardii (Florastor) 250 mg PO QPM [facility] Last Admin: 10/01/17 20:31 Dose: 250 mg Simvastatin (Zocor) 40 mg PO HS [facility] Last Admin: 01/17/17 20:32 Dose: 40 mg Sodium Chloride (Flush - Normal Saline) 10 ml IVF Q12HR [facility] Last Admin: 01/18/17 08:35 Dose: Not Given Sodium Chloride (Flush - Normal Saline) 10 ml IVF PRN PRN PRN Reason: Saline Flush
--- NOTE | 2017-01-18 11:43 | DIS ---
PRIMARY CARE PHYSICIAN: Dr. Wil Hernandez DATE OF ADMISSION: 01/10/2017 DATE OF DISCHARGE: 01/18/2017 DISCHARGE DISPOSITION: Home. PRIMARY DISCHARGE DIAGNOSES: 1. Nausea and vomiting, resolved. 2. Urinary tract infection. SECONDARY DISCHARGE DIAGNOSES: Hypertension, generalized anxiety disorder, dyslipidemia, chronic ob structive pulmonary disease, chronic kidney disease stage 3, obesity with body mass index 33. PRIMARY PROCEDURE/OPERATION: None. RADIOLOGICAL INVESTIGATION: Chest x-ray was normal. Abdomen and pelvis CT scan was unremarkable. CT brain was negative. Echocardiography showed normal EF. Abdomen x-ray was unremarkable. SIGNIFICANT LABS: Hemoglobin 9.0. INR 1.3, creatinine 1.11. Electrolytes normal. Urinalysis sugg estive of UTI. Urine culture grew E. coli. Blood culture was negative. Stool for infection workup is negative. DISCHARGE MEDICATIONS: Amitriptyline 25 mg p.o. at bedtime, vitamin C 500 mg p.o. daily, Biotin 500 0 mcg p.o. daily, Symbicort 2 puff inhalation b.i.d., calcium 600 mg p.o. daily, vitamin D3 10,000 u nits p.o. daily, Bentyl 10 mg q.i.d. p.r.n., enalapril 5 mg p.o. daily, Lexapro 20 mg p.o. daily, No rco 10 one tablet q.6 hours p.r.n., Imodium p.r.n., Levaquin 500 mg p.o. daily for 5 more days, Skel axin 800 mg p.o. t.i.d. p.r.n., Toprol XL 50 mg p.o. daily, Zofran 4 mg q.6. p.r.n., oxybutynin 10 mg p.o. daily, Florastor 250 mg p.o. daily for 7 days, Librium 20 mg t.i.d., hydroxyzine 100 mg p.o. q.6 hourly p.r.n. CONTRAINDICATIONS: None. CODE STATUS: FULL CODE. INPATIENT CONSULTANTS: None. ALLERGIES: CLINDAMYCIN, METFORMIN, NAPROXEN, TRAMADOL. DISCHARGE PLAN: Post hospital, the patient will follow up with primary care physician in 1 week. HOSPITAL COURSE: The patient is a 61-year-old female with above-mentioned medical problem who was a dmitted for nausea and vomiting. She was found with urinary tract infection. Her urine culture gre w E. coli. This patient was also constipated and after constipation treatment she had diarrhea and we did stool for infection workup that was negative. This patient kept complaining of nausea and vo miting and that is why she stayed in the hospital for several days. While in hospital her dehydrati on was corrected with IV fluids. By the time of discharge, her renal function improved to normal. At this point, the patient is medically stable for discharge. The patient is given levofloxacin for another 5 days for urinary tract infection. PHYSICAL EXAMINATION: GENERAL: The patient is seen and examined at bedside today. VITAL SIGNS: Currently, temperature 97.7, pulse 74, respiratory rate 16, blood pressure 114/71, cora ght 194 pounds. GENERAL: The patient is currently alert, awake, in no acute distress. HEAD: Normocephalic, atraumatic. LUNGS: Clear. CARDIAC: S1, S2 regular without any murmur. ABDOMEN: Soft and benign. EXTREMITIES: No edema. NEUROLOGIC: Nonfocal examination. The patient is medically stable for discharge today. All new me dication prescriptions sent to her pharmacy.
[2017-01-18] MEDS ORDERED: FLU VACC QS2017-18 36 mo. & older 0.5 ML SYRINGE IM ONE (21:00)
== END 2017-01-18 16:38 | disposition home or self-care (01) | DRG 872 ==
LOC: ERS 16:57 → 2NO 20:00 → T4-B 01-15 15:17
PROVIDERS: ADMIT Internal Medicine; ATTEND Internal Medicine
DX: A41.51 Sepsis due to Escherichia coli [E. coli] (principal); N17.9 Acute kidney failure, unspecified; E11.22 Type 2 diabetes mellitus with diabetic chronic kidney disease; I13.0 Hypertensive heart and chronic kidney disease with heart failure and stage 1 through stage 4 chronic kidney disease, or unspecified chronic kidney disease; I50.9 Heart failure, unspecified; N30.00 Acute cystitis without hematuria; E83.42 Hypomagnesemia; B96.20 Unspecified Escherichia coli [E. coli] as the cause of diseases classified elsewhere; R11.2 Nausea with vomiting, unspecified; R19.7 Diarrhea, unspecified; F32.9 Major depressive disorder, single episode, unspecified; J44.9 Chronic obstructive pulmonary disease, unspecified; N18.9 Chronic kidney disease, unspecified; E78.5 Hyperlipidemia, unspecified; D64.9 Anemia, unspecified; F41.1 Generalized anxiety disorder; E66.9 Obesity, unspecified; Z68.33 Body mass index [BMI] 33.0-33.9, adult; Z88.1 Allergy status to other antibiotic agents; Z88.8 Allergy status to other drugs, medicaments and biological substances; K59.00 Constipation, unspecified
CPT/HCPCS: 36415; 70450; 71010; 74000; 74177; 80048; 80053; 80069; 80306; 80307; 81003; 81015; 82553; 83605; 83690; 83735; 83880; 84100; 84484; 85025; 85610; 85730; 87015; 87040; 87045; 87046; 87077; 87086; 87186; 87324; 87449; 87899; 90471; 90682; 93005; 93306; 94640; 96361; 96365; 96367; 96375; A4216; G0008; G8978-GP-CI; G8979-GP-CI; G8980-GP-CI; G8987-GO-CI; G8988-GO-CI; G8989-GO-CI; J0696; J1580; J1644; J2405; J2543; J3010; J3475; J7050; J7620; Q2036

== ENCOUNTER 2017-02-07 00:46 | Emergency (ER) | payer BC ==
[2017-02-07 04:53] LABS: #Basophils 0.1 thou/uL (0.0-0.2); #Eosinphils 0.6 thou/uL (0.0-0.7); #Lymphocytes 2.9 thou/uL (1.20-3.40); #Monocytes 0.8 thou/uL (0.11-0.59); #Neutrophils 4.3 thou/uL (1.40-6.50); %Basophils 0.7 % (0.0-1.0); %Eosinophils 6.7 % (0.0-10.0); %Lymphocytes 33.4 % (21.0-51.0); Hematocrit 32.2 % (36.0-47.0); Mean Platelet Volume 7.7 fL (7.4-10.4); Red Blood Cell (RBC) Count 3.51 mill/uL (4.20-5.40); White Blood Cell (WBC) Count 8.6 thou/uL (4.8-10.8)
[2017-02-07 05:05] LABS: ALT (SGPT) 12 U/L (8-55); AST (SGOT) 13 U/L (5-34); Alkaline Phosphatase 90 U/L (40-150); Anion Gap 11 mmol/L (10-20); BUN (Urea Nitrogen) 22 mg/dL (9.8-20.1); Bilirubin, Total 0.3 mg/dL (0.2-1.2); Calc. Creatinine Clearance 0 mL/min (70-130); Calcium 9.4 mg/dL (7.8-10.44); Carbon Dioxide 31 mmol/L (23-31); Chloride 100 mmol/L (98-107); Estimated GFR-MDRD 41; Globulin 3.3 g/dL (2.4-3.5); Protein, Total 7.3 g/dL (6.0-8.3)
--- NOTE | 2017-02-07 09:14 | RAD ---
CHEST 2 VIEWS: HISTORY: Dyspnea. COMPARISON: Chest 1 view 01/10/17. FINDINGS: Lungs are clear. No pneumothorax or effusion. Cardiac silhouette and mediastinal contours are nandini lar. Mild spondylosis of the thoracic spine. Heart size upper limits of normal. IMPRESSION: 1 . Heart size upper limits of normal. 2. Previously described right lower lobe airspace opacity has resolved. POS: [facility]
== END 2017-02-07 06:22 | disposition home or self-care (01) ==
LOC: ERS 00:46
DX: N17.9 Acute kidney failure, unspecified (principal); K21.9 Gastro-esophageal reflux disease without esophagitis; E78.5 Hyperlipidemia, unspecified; I10 Essential (primary) hypertension; M19.90 Unspecified osteoarthritis, unspecified site; E66.9 Obesity, unspecified; J44.9 Chronic obstructive pulmonary disease, unspecified; F41.9 Anxiety disorder, unspecified; F32.9 Major depressive disorder, single episode, unspecified; Z87.891 Personal history of nicotine dependence; Z79.899 Other long term (current) drug therapy
CPT/HCPCS: 36415; 71020; 80053; 85025; 93005

== ENCOUNTER 2017-02-17 13:50 | Outpatient (CLI) | payer BC ==
--- NOTE | 2017-02-17 14:29 | RAD ---
CHEST PA AND LATERAL: History: 62-year-old female with dyspnea. Comparison: 02-07-17 FINDINGS: Heart size is minimally enlarged. There are mild increased linear and interstitial markings bilatera lly, particularly in the lower lung zones but overall appearance appears stable from prior study. No new confluent pneumonia or overt edema. IMPRESSION: Stable increased markings bilaterally, particularly in the lower lung zones. Stable minimal cardiome tawanda. No new process. POS: [facility]
== END 2017-02-17 13:51 | disposition home or self-care (01) ==
LOC: RAD 13:50
PROVIDERS: ATTEND Internal Medicine Critical Care Medicine
DX: R06.00 Dyspnea, unspecified (principal)
CPT/HCPCS: 71020

== ENCOUNTER 2017-02-24 11:40 | Inpatient (IN) | payer BC ==
[2017-02-24 12:14] LABS: #Lymphocytes 1.4 thou/uL (1.20-3.40); #Monocytes 1.1 thou/uL (0.11-0.59); #Neutrophils 15.1 thou/uL (1.40-6.50); %Eosinophils 0.2 % (0.0-10.0); %Lymphocytes 8.1 % (21.0-51.0); %Monocytes 6.1 % (0.0-10.0); Hematocrit 32.8 % (36.0-47.0); Mean Platelet Volume 6.6 fL (7.4-10.4); Red Blood Cell (RBC) Count 3.59 mill/uL (4.20-5.40); White Blood Cell (WBC) Count 17.6 thou/uL (4.8-10.8)
[2017-02-24 12:37] LABS: ALT (SGPT) 14 U/L (8-55); AST (SGOT) 14 U/L (5-34); Alkaline Phosphatase 88 U/L (40-150); Anion Gap 10 mmol/L (10-20); BUN (Urea Nitrogen) 35 mg/dL (9.8-20.1); Bilirubin, Total 0.4 mg/dL (0.2-1.2); Calc. Creatinine Clearance 0 mL/min (70-130); Calcium 9.2 mg/dL (7.8-10.44); Carbon Dioxide 28 mmol/L (23-31); Chloride 103 mmol/L (98-107); Estimated GFR-MDRD 44; Protein, Total 6.9 g/dL (6.0-8.3)
[2017-02-24] MEDS ORDERED: Nitroglycerin 0.4 MG TAB (25 Tab Bottle) ONE (13:07)
--- NOTE | 2017-02-24 13:34 | RAD ---
TWO VIEWS CHEST: Comparison: 02-17-17 History: Shortness of breath, cough. FINDINGS: Two views of the chest shows normal sized cardiomediastinal silhouette with atherosclerotic calcific ations in the aorta. There is no evidence of consolidation, mass, or pleural effusion. Increased int erstitial markings are present. IMPRESSION: No evidence of acute cardiopulmonary disease. POS: [facility]
[2017-02-24 14:06] LABS: CK (CPK) 33 U/L (29-168); Lipase 7 U/L (8-78)
[2017-02-24 14:11] LABS: Troponin I Less than 0.010 ng/mL (< 0.028)
[2017-02-24 14:27] LABS: Bilirubin Negative (Negative); Blood, Urine Small (Negative); Glucose, Urine (Dipstick) Negative (Negative); Ketone, Urine Negative (Negative); Nitrite Negative (Negative); Protein, Urine (Dipstick) Negative (Neg-Trace); Urobilinogen 0.2 mg/dL (0.2-1.0)
[2017-02-24 14:29] LABS: Bacteria/HPF None Seen HPF (None Seen); Hyaline Casts/LPF 0-3 HYALINE CAST LPF (0-3 Hyaline); Squamous Epithelial 0-3 HPF (0-3); WBC/HPF 21-50 HPF (0-3)
[2017-02-24 16:48] VITALS: BMI 31.6
--- NOTE | 2017-02-24 17:00 | HP ---
HISTORY: Joseline Logan is a very pleasant 62-year-old patient of mine for many years. She presented to the emergency room with shortness of breath. She was seen by me last week with complaints of sh ortness of breath, started on steroids and on Wednesday started on antibiotics. She had dysuria. She was found to have UTI and was started on Cipro as an outpatient. This morning , she woke up very congested, unable to speak. She was asked to come to the office, but did not thi nk she could make it, so she presented to the emergency room. PAST MEDICAL HISTORY: Remarkable for, 1. Chronic obstructive pulmonary disease. She is abstinent from tobacco, pulmonary function testin g in October show mixed obstructive and restrictive defect on pulmonary function tests. Her FEV1 best was less than a liter. She actually was quite functional on a good day when she is not having any i ssues with her COPD. 2. She has a history of significant beer drinking in the past, but she has cut way back on her beer drinking if I recall correctly, she was drinking 6-8 beers a day for many years. 3. History of significant obesity, if I recall correctly she lost over 100 pounds. Her dyspnea on exertion improved dramatically with her weight loss. 4. History of hypertension. 5. Diabetes. 6. History of anxiety. 7. History of lipid disorder. 8. One of the old note says she is schizoaffective, but I am not aware of that diagnosis being made . PAST SURGICAL HISTORY: 1. History of hysterectomy. 2. History of cholecystectomy. 3. History of tonsillectomy. 4. History of knee surgery and back surgery and a bladder suspension. 5. History of cardiac catheterization in the past. SOCIAL HISTORY: She is not smoking or drinking infrequently. PHYSICAL EXAMINATION: GENERAL: She is in no distress. VITAL SIGNS: Blood pressure 150/70, pulse is 88, respiratory rate is 18. HEENT: Pupils are equal. Sclerae are anicteric. NECK: Supple. LUNGS: Remarkable for distant wheezes. HEART: Regular rhythm. S1 and S2 normal. ABDOMEN: Soft and nontender. EXTREMITIES: Without asymmetry. LABORATORY DATA: White count 17.6, hemoglobin 10.4, platelets 272. Sodium 137, potassium 4.4, chlo ride 103, bicarbonate 28, BUN 35, creatinine 1.24. IMPRESSION: 1. Chronic obstructive pulmonary disease exacerbation, failed outpatient management with steroids a nd antibiotics. 2. Cystitis. It should be adequately treated by now. 3. Anxiety, it tends to be aggravated by high dose of steroids. She is always pleasant, cooperativ e with me. PLAN: Admission to the hospital for probably at least 48 hours. Hopefully, she will be well enough to go home by Wednesday.
[2017-02-24] MEDS ORDERED: Temazepam 15 MG CAP PO PRN (17:04)
[2017-02-24] MEDS ORDERED: FLU VACC QS2017-18 36 mo. & older 0.5 ML SYRINGE IM ONE (17:15)
[2017-02-24] MEDS: Doxycycline 100 MG CAP PO SCH (19:39)
[2017-02-24] MEDS: Amitriptyline HCl 25 MG TAB PO SCH (19:40)
[2017-02-24] MEDS: Sodium Chloride 0.45% 1,000 ML IV SCH (19:40)
[2017-02-24] MEDS: HYDROcodone/Acetaminophen 10/325 mg Tablet PO PRN (19:44)
[2017-02-25] MEDS: HYDROcodone/Acetaminophen 10/325 mg Tablet PO PRN ×3 (00:33→17:30)
[2017-02-25] MEDS: Sodium Chloride 0.45% 1,000 ML IV SCH ×2 (05:18→22:36)
[2017-02-25] MEDS: Doxycycline 100 MG CAP PO SCH ×2 (08:52→21:06)
[2017-02-25] MEDS: Oxybutynin 5 MG TAB PO SCH (08:53)
[2017-02-25] MEDS: Escitalopram Oxalate 20 mg Tablet PO SCH (08:53)
--- NOTE | 2017-02-25 11:59 | PRG ---
DATE OF SERVICE: 02/25/2017 Ms. Logan is afebrile, heart rate 82, respiratory rate is 18, oximetry 94, blood pressure 166/81. LUNGS: Lungs are clear. HEART: Regular rhythm. ABDOMEN: Abdomen is soft. She reports that she was confused earlier this morning. I have cut her hydrocodone dosing back and stopped her Restoril for sleep. Hopefully, she will be stable and ready for discharge in the [facility] as I have explained to her.
[2017-02-25] MEDS ORDERED: Enoxaparin Sodium 40 MG/0.4 ML SYRINGE SC SCH (21:00)
[2017-02-25] MEDS: Amitriptyline HCl 25 MG TAB PO SCH (21:06)
[2017-02-26] MEDS: HYDROcodone/Acetaminophen 10/325 mg Tablet PO PRN ×2 (00:09→06:15)
[2017-02-26 07:24] VITALS: TEMP 98.2
[2017-02-26 07:58] VITALS: BP 150/74
[2017-02-26] MEDS: Escitalopram Oxalate 20 mg Tablet PO SCH (09:01)
[2017-02-26] MEDS: Oxybutynin 5 MG TAB PO SCH (09:01)
[2017-02-26] MEDS: Doxycycline 100 MG CAP PO SCH (09:03)
--- NOTE | 2017-02-26 11:59 | DIS ---
Ms. Logan does not want to go home. She was asleep when I walked into the room and is pretty much sleep every time I walk in the room. I have explained to her that she needs a sleep study when she comes back to the office. PHYSICAL EXAMINATION: VITAL SIGNS: She is afebrile, heart rate 80, respiratory rate 16, oximetry is 99, blood pressure 15 0/74. LUNGS: Completely clear now. HEART: Regular rhythm. She wants to stay in the hospital. I have asked her why she does not want to go home and her reply was there is always some expletive going on at home and I just do not want to go. I have explained to her that I cannot keep her in the hospital for social reasons, so she will be di scharged home on 40 of prednisone for 4 days, 20 for 8 days, 10 for 8 days, ipratropium and albutero l 4 times a day and p.r.n. She will continue her hydrocodone prescribed by her primary care physician, doxycycline 100 mg twice a day for 7 more days, haloperidol 5 mg a day, citalopram 20 mg a day, Ditropan 10 mg a day and chl ordiazepoxide (Librium) 20 mg t.i.d. She will follow up with me in 2-3 weeks. Chest radiograph thi s admission showed no infiltrates or new mass lesions. Lab was remarkable for hemoglobin of 10.4. This needs to be followed up by her primary care physician. Electrolytes were unremarkable. Her BN P I suspect his right heart ([id number]). She has no history of left ventricular systolic dysfunction. e did not have pulmonary edema on her radiograph this admission. Her elevated white count and eleva josephine BUN on presentation was felt to be related to the fact that she was on steroids on admission.
[2017-02-26] MEDS: Sodium Chloride 0.45% 1,000 ML IV SCH (13:01)
--- NOTE | 2017-03-27 17:03 | EKG ---
Test Reason : SOB Blood Pressure : / mmHG Vent. Rate : 077 BPM Atrial Rate : 077 BPM P-R Int : 158 ms QRS Dur : 082 ms QT Int : 404 ms P-R-T Axes : 051 049 056 degrees QTc Int : 457 ms Normal sinus rhythm Normal ECG Confirmed by ARISTEO FREEMAN ([id number]), script editor ANDERSON CLEMENTS ([id number]) on 03/27/2017 5:03:19 PM Referred By: Confirmed By:ARISTEO FREEMAN
== END 2017-02-26 13:55 | disposition home or self-care (01) | DRG 192 ==
LOC: ERS 11:40 → T4-B 15:45
PROVIDERS: ADMIT Internal Medicine Critical Care Medicine; ATTEND Internal Medicine Critical Care Medicine
DX: J44.1 Chronic obstructive pulmonary disease with (acute) exacerbation (principal); N30.90 Cystitis, unspecified without hematuria; I10 Essential (primary) hypertension; F41.9 Anxiety disorder, unspecified; E66.9 Obesity, unspecified; Z68.31 Body mass index [BMI] 31.0-31.9, adult; Z23 Encounter for immunization; E78.5 Hyperlipidemia, unspecified
CPT/HCPCS: 36415; 71020; 80053; 81003; 81015; 82550; 82553; 83690; 83880; 84484; 85025; 93005; 94640; 96360; J1650; J2920; J7620

== ENCOUNTER 2017-03-12 18:44 | Emergency (ER) | payer BC ==
[2017-03-12 19:33] LABS: #Lymphocytes 1.7 thou/uL (1.20-3.40); #Monocytes 0.6 thou/uL (0.11-0.59); #Neutrophils 9.5 thou/uL (1.40-6.50); %Basophils 0.2 % (0.0-1.0); %Eosinophils 0.3 % (0.0-10.0); %Lymphocytes 14.5 % (21.0-51.0); %Monocytes 5.4 % (0.0-10.0); Hematocrit 30.3 % (36.0-47.0); Mean Platelet Volume 6.9 fL (7.4-10.4); Red Blood Cell (RBC) Count 3.32 mill/uL (4.20-5.40); White Blood Cell (WBC) Count 11.9 thou/uL (4.8-10.8)
--- NOTE | 2017-03-12 19:50 | RAD ---
CHEST ONE VIEW 03/12/17 HISTORY: Dyspnea. COMPARISON: 02/24/17 FINDINGS: The cardiac silhouette is magnified by projection. Pulmonary vasculature is unremarkable. Mediastinum is midline with aortic calcification. There is no lobar consolidation or evidence of pneumothorax. T he monitoring manager leads overlie the chest. IMPRESSION: No active cardiopulmonary abnormalities are demonstrated. POS: [facility]
[2017-03-12 19:53] LABS: ALT (SGPT) 17 U/L (8-55); AST (SGOT) 11 U/L (5-34); Alkaline Phosphatase 88 U/L (40-150); Anion Gap 14 mmol/L (10-20); BUN (Urea Nitrogen) 28 mg/dL (9.8-20.1); Bilirubin, Total 0.3 mg/dL (0.2-1.2); CK (CPK) 28 U/L (29-168); Calc. Creatinine Clearance 0 mL/min (70-130); Calcium 9.4 mg/dL (7.8-10.44); Carbon Dioxide 24 mmol/L (23-31); Chloride 105 mmol/L (98-107); Estimated GFR-MDRD 48; Protein, Total 6.7 g/dL (6.0-8.3)
[2017-03-12 19:57] LABS: Troponin I 0.019 ng/mL (< 0.028)
[2017-03-12] MEDS ORDERED: Dexamethasone 4 mg/ml Vial ONE (21:46)
== END 2017-03-12 21:44 | disposition home or self-care (01) ==
LOC: ERS 18:44
DX: R06.00 Dyspnea, unspecified (principal); K21.9 Gastro-esophageal reflux disease without esophagitis; E78.5 Hyperlipidemia, unspecified; I10 Essential (primary) hypertension; J44.9 Chronic obstructive pulmonary disease, unspecified; F41.9 Anxiety disorder, unspecified; F32.9 Major depressive disorder, single episode, unspecified; F17.210 Nicotine dependence, cigarettes, uncomplicated
CPT/HCPCS: 36415; 71010; 80053; 82553; 84484; 85025; 93005; 94640; 94760; 96372; J1100; J7620

== ENCOUNTER 2017-04-29 11:05 | Outpatient (CLI) | payer BC ==
--- NOTE | 2017-04-29 12:19 | RAD ---
TWO VIEWS CHEST: History: Dyspnea. Date: 04-29-17 Comparison: 02-17-17 FINDINGS: PA and lateral views of the chest demonstrate the lungs to be well aerated. No evidence of active int rathoracic disease is seen. No evidence of effusions, pneumonia, or pneumothorax is seen. IMPRESSION: Normal two views chest. POS: [facility]
== END 2017-04-29 11:06 | disposition home or self-care (01) ==
LOC: RAD 11:05
PROVIDERS: ATTEND Internal Medicine Critical Care Medicine
DX: R06.00 Dyspnea, unspecified (principal)
CPT/HCPCS: 71046

== ENCOUNTER 2017-05-03 17:19 | Emergency (ER) | payer BC ==
--- NOTE | 2017-05-03 18:26 | RAD ---
PA AND LATERAL CHEST: Date: 05-03-17 History: Fever, congestion, cough, chills. Comparison: 02-24-17 FINDINGS: The cardiac silhouette is at the upper limits of normal in size. Pulmonary vasculature is within norm al limits and the lungs are clear. Interstitial opacities from a prior study have resolved. Degenerat natalia changes are again seen in the thoracic spine and there are vascular calcifications in the thoraci c as well visualized abdominal aorta. No other interval change. IMPRESSION: 1. No acute cardiopulmonary process. 2. Resolution of interstitial opacities from the prior exam. POS: [facility]
[2017-05-03 18:55] LABS: #Lymphocytes 1.3 thou/uL (1.20-3.40); #Monocytes 0.4 thou/uL (0.11-0.59); #Neutrophils 9.8 thou/uL (1.40-6.50); %Basophils 0.3 % (0.0-1.0); %Eosinophils 0.1 % (0.0-10.0); %Monocytes 3.6 % (0.0-10.0); Hemoglobin 12.5 g/dL (12.0-16.0); Mean Corpuscular Volume 90.8 fl (81.0-99.0); Mean Platelet Volume 7.2 fL (7.4-10.4); Platelet Count 262 thou/uL (130-400); RBC Distribution Width 13.2 % (11.5-14.5); Red Blood Cell (RBC) Count 4.16 mill/uL (4.20-5.40); White Blood Cell (WBC) Count 11.5 thou/uL (4.8-10.8)
[2017-05-03 19:15] LABS: ALT (SGPT) 11 U/L (8-55); AST (SGOT) 14 U/L (5-34); Albumin 4.1 g/dL (3.4-4.8); Alkaline Phosphatase 83 U/L (40-150); Anion Gap 15 mmol/L (10-20); BUN (Urea Nitrogen) 36 mg/dL (9.8-20.1); Bilirubin, Total 0.6 mg/dL (0.2-1.2); Calc. Creatinine Clearance 0 mL/min (70-130); Calcium 10.1 mg/dL (7.8-10.44); Carbon Dioxide 25 mmol/L (23-31); Chloride 98 mmol/L (98-107); Estimated GFR-MDRD 42; Globulin 3.5 g/dL (2.4-3.5); Glucose 154 mg/dL (80-115); Potassium 4.6 mmol/L (3.5-5.1); Protein, Total 7.6 g/dL (6.0-8.3); Sodium 133 mmol/L (136-145)
[2017-05-03] MEDS ORDERED: methylPREDNISolone Sod Succ/PF 125 MG/2 ML VIAL ONE (19:44)
== END 2017-05-03 23:29 | disposition home or self-care (01) ==
LOC: ERS 17:19
DX: J44.1 Chronic obstructive pulmonary disease with (acute) exacerbation (principal); K21.9 Gastro-esophageal reflux disease without esophagitis; E78.5 Hyperlipidemia, unspecified; I10 Essential (primary) hypertension; E66.9 Obesity, unspecified; F41.9 Anxiety disorder, unspecified; F32.9 Major depressive disorder, single episode, unspecified; M19.90 Unspecified osteoarthritis, unspecified site
CPT/HCPCS: 36415; 71046; 80053; 85025; 87804; 94640; 96361; 96374; J2930; J7620

== ENCOUNTER 2017-05-12 14:34 | Emergency (ER) | payer BC ==
[2017-05-12] MEDS ORDERED: Ondansetron HCl/PF 4 MG/2 ML Vial ONE (15:37)
[2017-05-12] MEDS ORDERED: Morphine 4 MG/ML Carpuject ONE (15:37)
[2017-05-12 15:58] LABS: Bilirubin Negative (Negative); Blood, Urine Moderate (Negative); Glucose, Urine (Dipstick) Negative (Negative); Leukocyte Moderate (Negative); Nitrite Positive (Negative); Protein, Urine (Dipstick) 30 mg/dL (Neg-Trace); Urobilinogen 0.2 mg/dL (0.2-1.0); pH, Urine 5.5 (5.0-9.0)
[2017-05-12 16:03] LABS: #Lymphocytes 1.2 thou/uL (1.20-3.40); #Monocytes 0.5 thou/uL (0.11-0.59); #Neutrophils 6.9 thou/uL (1.40-6.50); %Basophils 0.4 % (0.0-1.0); %Eosinophils 0.3 % (0.0-10.0); %Lymphocytes 13.9 % (21.0-51.0); %Monocytes 5.3 % (0.0-10.0); %Neutrophils 80.1 % (42.0-75.0); Hemoglobin 13.2 g/dL (12.0-16.0); Mean Corpuscular HGB CONC 33.2 g/dL (32.0-36.0); Mean Corpuscular Volume 90.4 fl (81.0-99.0); Mean Platelet Volume 7.7 fL (7.4-10.4); Platelet Count 253 thou/uL (130-400); RBC Distribution Width 13.1 % (11.5-14.5); Red Blood Cell (RBC) Count 4.38 mill/uL (4.20-5.40); White Blood Cell (WBC) Count 8.6 thou/uL (4.8-10.8)
[2017-05-12 16:05] LABS: Clarity Cloudy (Clear)
[2017-05-12 16:09] LABS: Bacteria/HPF 2+ HPF (None Seen); Squamous Epithelial 0-3 HPF (0-3); WBC/HPF 21-50 HPF (0-3)
[2017-05-12 16:11] LABS: Crystals/HPF None Seen HPF (Negative); Hyaline Casts/LPF 0-3 HYALINE CAST LPF (0-3 Hyaline)
[2017-05-12 16:26] LABS: ALT (SGPT) 23 U/L (8-55); AST (SGOT) 24 U/L (5-34); Albumin 3.6 g/dL (3.4-4.8); Alkaline Phosphatase 73 U/L (40-150); Anion Gap 17 mmol/L (10-20); BUN (Urea Nitrogen) 30 mg/dL (9.8-20.1); Bilirubin, Total 0.9 mg/dL (0.2-1.2); Calc. Creatinine Clearance 0 mL/min (70-130); Calcium 9.3 mg/dL (7.8-10.44); Carbon Dioxide 20 mmol/L (23-31); Chloride 100 mmol/L (98-107); Estimated GFR-MDRD 46; Globulin 2.7 g/dL (2.4-3.5); Glucose 121 mg/dL (80-115); Lipase 4 U/L (8-78); Potassium 4.5 mmol/L (3.5-5.1); Protein, Total 6.3 g/dL (6.0-8.3); Sodium 132 mmol/L (136-145)
[2017-05-12] MEDS ORDERED: cefTRIAXone\\ROCEPHIN 2 GM in Sodium Chloride 0.9% 100 ML IVPB SCH (16:30)
== END 2017-05-12 19:48 | disposition home or self-care (01) ==
LOC: ERS 14:34
DX: N39.0 Urinary tract infection, site not specified (principal); R19.7 Diarrhea, unspecified; J44.9 Chronic obstructive pulmonary disease, unspecified; K21.9 Gastro-esophageal reflux disease without esophagitis; E78.5 Hyperlipidemia, unspecified; I10 Essential (primary) hypertension; M19.90 Unspecified osteoarthritis, unspecified site; E66.9 Obesity, unspecified; F41.9 Anxiety disorder, unspecified; F32.9 Major depressive disorder, single episode, unspecified; Z87.891 Personal history of nicotine dependence; Z79.899 Other long term (current) drug therapy
CPT/HCPCS: 36415; 80053; 81003; 81015; 83690; 85025; 96361; 96365; 96375; J0696; J2270; J2405; J7050

== ENCOUNTER 2017-07-06 22:31 | Observation (INO) | payer BC ==
[2017-07-06 23:07] LABS: #Eosinphils 0.3 thou/uL (0.0-0.7); #Lymphocytes 2.7 thou/uL (1.20-3.40); #Monocytes 0.7 thou/uL (0.11-0.59); #Neutrophils 7.2 thou/uL (1.40-6.50); %Basophils 0.4 % (0.0-1.0); %Eosinophils 2.8 % (0.0-10.0); %Lymphocytes 24.4 % (21.0-51.0); %Monocytes 6.4 % (0.0-10.0); Hemoglobin 11.8 g/dL (12.0-16.0); Mean Corpuscular HGB CONC 33.1 g/dL (32.0-36.0); Mean Corpuscular Hemoglobin 29.2 pg (27.0-31.0); Mean Corpuscular Volume 88.2 fl (81.0-99.0); Mean Platelet Volume 6.8 fL (7.4-10.4); Platelet Count 257 thou/uL (130-400); RBC Distribution Width 12.9 % (11.5-14.5); Red Blood Cell (RBC) Count 4.04 mill/uL (4.20-5.40)
--- NOTE | 2017-07-06 23:20 | RAD ---
RADIOGRAPH CHEST 1 VIEW: 07/06/17 HISTORY: 62-year-old female with dyspnea. FINDINGS: There are no air space densities, pulmonary edema, pneumothorax, or cardiomegaly. The lateral costop hrenic angles are sharp. IMPRESSION: No acute cardiopulmonary findings. jacob [] POS: [facility]
[2017-07-06 23:28] LABS: ALT (SGPT) 7 U/L (8-55); AST (SGOT) 11 U/L (5-34); Albumin 3.7 g/dL (3.4-4.8); Alkaline Phosphatase 78 U/L (40-150); Anion Gap 17 mmol/L (10-20); BUN (Urea Nitrogen) 23 mg/dL (9.8-20.1); Bilirubin, Total 0.3 mg/dL (0.2-1.2); Calc. Creatinine Clearance 0 mL/min (70-130); Calcium 8.7 mg/dL (7.8-10.44); Carbon Dioxide 22 mmol/L (23-31); Chloride 99 mmol/L (98-107); Estimated GFR-MDRD 23; Glucose 100 mg/dL (80-115); Potassium 4.1 mmol/L (3.5-5.1); Protein, Total 6.7 g/dL (6.0-8.3); Sodium 134 mmol/L (136-145)
[2017-07-06 23:32] LABS: Troponin I Less than 0.010 ng/mL (< 0.028)
[2017-07-07] MEDS ORDERED: HYDROcodone/Acetaminophen 10/325 mg Tablet ONE (01:07)
[2017-07-07] MEDS ORDERED: Water For Inject, Bacteriostat 30 ML ONE (01:07)
[2017-07-07] MEDS ORDERED: methylPREDNISolone Sod Succ/PF 125 MG/2 ML VIAL ONE (01:07)
[2017-07-07 03:06] LABS: Bilirubin Negative (Negative); Blood, Urine Small (Negative); Clarity TURBID (Clear); Glucose, Urine (Dipstick) Negative (Negative); Leukocyte Large (Negative); Nitrite Negative (Negative); Protein, Urine (Dipstick) Trace mg/dL (Neg-Trace); Urobilinogen 0.2 mg/dL (0.2-1.0); pH, Urine 5.5 (5.0-9.0)
[2017-07-07 03:08] LABS: Bacteria/HPF Rare-Few HPF (None Seen); Hyaline Casts/LPF 0-3 HYALINE CAST LPF (0-3 Hyaline); Pathc Cast-AUWi Flag 0.13 (0-2.49)
[2017-07-07 03:14] LABS: Yeast-AUWi Flag 63.5 (0-25.0)
[2017-07-07 03:18] LABS: Renal Epithelial None Seen HPF (0-3); Transitional Epithelial NONE SEEN HPF (0-3); Yeast-All Forms None Seen HPF (None Seen)
[2017-07-07] MEDS ORDERED: HYDROcodone/Acetaminophen 5/325 mg Tablet PO PRN ×3 (04:38→06:14)
[2017-07-07] MEDS ORDERED: Acetaminophen 325 MG TAB PO PRN ×2 (04:38→06:14)
[2017-07-07 05:08] VITALS: BMI 35.5
[2017-07-07] MEDS ORDERED: Albuterol Sulfate 2.5 mg/3 ml Neb NEB PRN (06:13)
[2017-07-07] MEDS ORDERED: hydrOXYzine 25 MG TAB PO PRN (06:14)
[2017-07-07] MEDS ORDERED: Ondansetron ODT 4 MG TAB PO PRN (06:14)
[2017-07-07 06:36] LABS: #Lymphocytes 0.8 thou/uL (1.20-3.40); #Monocytes 0.1 thou/uL (0.11-0.59); %Basophils 0.5 % (0.0-1.0); %Eosinophils 0.2 % (0.0-10.0); %Lymphocytes 9.2 % (21.0-51.0); %Monocytes 1.1 % (0.0-10.0); %Neutrophils 89.1 % (42.0-75.0); Hemoglobin 11.1 g/dL (12.0-16.0); Mean Corpuscular HGB CONC 33.2 g/dL (32.0-36.0); Mean Corpuscular Hemoglobin 29.9 pg (27.0-31.0); Mean Corpuscular Volume 89.9 fl (81.0-99.0); Mean Platelet Volume 7.1 fL (7.4-10.4); Platelet Count 233 thou/uL (130-400); Red Blood Cell (RBC) Count 3.71 mill/uL (4.20-5.40); White Blood Cell (WBC) Count 8.9 thou/uL (4.8-10.8)
[2017-07-07 06:55] LABS: Anion Gap 18 mmol/L (10-20); BUN (Urea Nitrogen) 26 mg/dL (9.8-20.1); Calc. Creatinine Clearance 40 mL/min (70-130); Calcium 8.6 mg/dL (7.8-10.44); Carbon Dioxide 19 mmol/L (23-31); Chloride 99 mmol/L (98-107); Estimated GFR-MDRD 24; Glucose 204 mg/dL (80-115); Potassium 4.8 mmol/L (3.5-5.1); Sodium 131 mmol/L (136-145)
--- NOTE | 2017-07-07 07:12 | HP ---
DATE OF ADMISSION: 07/07/2017 TIME OF SERVICE: 0615 PRIMARY CARE PHYSICIAN: Dr. Wil Hernandez PRIMARY TECHNICIAN ANATOMIC PATHOLOGY: Dr. Emeterio Sanford CHIEF COMPLAINT: Shortness of breath. HISTORY OF PRESENT ILLNESS: Ms. Logan is a 62-year-old female with history of COPD, CKD stage 3, hy perlipidemia, hypertension and mitral valve prolapse, who presents to the emergency department for ev aluation of shortness of breath. She has had a 1 week history of dyspnea on exertion, some shortness of breath and some cough producti ve of some thick white phlegm. She had recently seen Dr. Sanford and was prescribed a short course of prednisone on 06/29/2017, 20 mg tablets #6 which she said she took, but was going to do anything. She is supposed to see Dr. Sanford in follow up today, but presented to the emergency room last night a nd stated she did not think she could wait until then, her breathing was too bad. She describes dysp reece on exertion, no orthopnea or PND. She has had a heaviness and cramping in her upper shoulder are a and felt like her hands had both gone numb at the same time. She was scared she had stroke and so presented to the emergency department. There she was found to be in very mild respiratory distress. She was satting 93% on room air and we were subsequently called for admission for COPD exacerbation. The patient was accepted a little before midnight. She was finally seen by me at 0615. She has been walking around the hallway. Sats on room air at rest were 94% and walking around ambulatory were do wn only to 93%. She states her breathing really is not any better, but denies any other current comp laints. She has had a cough since being admitted that is nonproductive. No fevers or chills. No na usea, vomiting, diarrhea or constipation. PAST MEDICAL HISTORY: 1. COPD. 2. Chronic kidney disease. 3. Mitral valve prolapse 4. Hyperlipidemia. 5. Gastroesophageal reflux disease. 6. Schizoaffective disorder. 7. Hypertension. 8. Osteoarthritis. 9. Obesity. PAST SURGICAL HISTORY: 1. Cholecystectomy. 2. Hysterectomy. 3. Right knee surgery. 4. Lumbar disk surgery. 5. Tonsillectomy. 6. PTCA. 7. Bladder surgery. HOME MEDICATIONS: 1. Mucinex 1200 mg p.o. daily. 2. Toprol-XL 50 mg daily. 3. Symbicort 160/4.5 1 puff b.i.d. 4. Chlordiazepoxide 20 mg p.o. t.i.d., prescription last picked up for a 3-month supply 05/08/2017. 5. Zanaflex 4 mg p.o. q.8h. p.r.n. 6. Zofran 4 mg p.o. q.6 hours p.r.n. nausea, vomiting. 7. Vytorin 10/40 p.o. at bedtime. 8. Nexium 40 mg p.o. q.a.m. 9. Enalapril 5 mg p.o. b.i.d. 10. Vitamin D3 5000 units daily. 11. Oxybutynin 10 mg p.o. b.i.d. 12. DuoNebs q.i.d. 13. Biotin 5 mg daily. 14. Cozaar 50 mg daily. 15. [place] 10/325 p.o. p.r.n. 1-2 tablets. 16. Hydroxyzine 100 mg p.o. q.6h. p.r.n. 17. Citalopram 20 mg p.o. daily. ALLERGIES: CLINDAMYCIN, METFORMIN, NAPROSYN and TRAMADOL. SOCIAL HISTORY: Negative for habits x3. She is a former smoker and did smoke for many years, but qu it about 10 years ago. Social alcohol use is rare. FAMILY HISTORY: Negative for clotting or bleeding disorder, autoimmune dysfunction. REVIEW OF SYSTEMS: A 10-point review of systems was performed and is negative for all systems except as stated as per HPI. PHYSICAL EXAMINATION: VITAL SIGNS: Temperature 98.5, pulse 83, blood pressure 147/87, respiratory rate 16, satting 98% on room air. GENERAL: She is awake. She is alert, she is oriented x3. She is an obese white female in absolutel y no distress. HEENT: Normocephalic, atraumatic. Pupils equal, round, react to light bilaterally, mucous membranes are moist. She has no visible lesions or thrush. NECK: Supple, without lymphadenopathy, JVD, or thyromegaly. She has normal carotid upstrokes. I do not appreciate bruits. LUNGS: Lungs have diminished breath sounds bilaterally. She has slight prolonged expiratory phase a nd high pitched expiratory wheezes that are short lived. She has no crackles and no rhonchi. ABDOMEN: Obese, it is nontender, nondistended. She has good bowel sounds in 4 quadrants. There is no rebound, rigidity or guarding. EXTREMITIES: No cyanosis, no clubbing with trace pedal edema. SKIN: Otherwise cool moist and well perfused. She has no rashes or lesions. NEUROLOGIC: Cranial nerves II-XII are grossly intact. She has 5/5 strength, normal speech pattern, no focal deficits. MUSCULOSKELETAL: Shows large joints to be uninflamed. She has no palpable effusion. Good range of motion. She is walking on her own strength in the hallway with no problem. LABORATORY DATA: Sodium 134, potassium 4.1, chloride 99, bicarbonate 22, BUN 23, creatinine 2.10 whi ch is increased from her baseline. She is normally in the 1.1 to 1.5 range as of 05/12/2017. BUN re jana stable and actually improved at 23. Liver functions completely within normal limits. CBC showed a white count of 11.0, hemoglobin 11.8, hematocrit 35.6, and platelet count is 257,000. BNP is slightly elevated 148.1, which is stable. CK-MB normal at 1.0 and troponin I is undetectable, less than 0.010. RADIOGRAPHIC STUDIES: She had a chest x-ray on 07/06/2017 at 2241 that showed no acute cardiopulmona ry findings. ASSESSMENT AND PLAN: 1. Acute exacerbation of chronic obstructive pulmonary disease: Seems mild. She is satting well on room air. At this time, we will give her Solu-Medrol 40 mg IV q.6 hours for 2 more doses and start on oral prednisone today 40 mg daily. We will ask Dr. Sanford to see her. We will continue DuoNebs q .4h. and albuterol q.2h. p.r.n. We will continue Symbicort. 2. Acute kidney injury, normal creatinine, somewhere between 1.1 and 1.4. She is currently at 2.19. BUN is not elevated. Repeat morning labs. She says she is not having trouble urinating, has been drinking okay. 3. Schizoaffective disorder. 4. History of chronic kidney disease. 6. Mitral valve prolapse, stable. 7. Hyperlipidemia on Vytorin. 8. Gastroesophageal reflux disease, on Nexium. 9. Hypertension on Toprol-XL, enalapril and Cozaar. We will continue these.
[2017-07-07] MEDS: Mometasone/Formoterol 120 PUFF INHALER INH SCH ×2 (07:51→19:31)
[2017-07-07] MEDS: Oxybutynin 5 MG TAB PO SCH ×2 (08:19→21:15)
[2017-07-07] MEDS: Escitalopram Oxalate 20 mg Tablet PO SCH (08:20)
[2017-07-07] MEDS: Famotidine 20 MG TAB PO SCH (08:20)
[2017-07-07] MEDS: Losartan 25 MG TAB PO SCH (08:20)
[2017-07-07] MEDS: predniSONE 20 MG TAB PO SCH (08:20)
[2017-07-07] MEDS: guaiFENesin ER 600 MG TAB PO SCH ×2 (08:21→21:14)
[2017-07-07] MEDS ORDERED: FLU VACC QS2017-18 36 mo. & older 0.5 ML SYRINGE IM ONE (09:00)
[2017-07-07] MEDS: HYDROcodone/Acetaminophen 5/325 mg Tablet PO PRN ×3 (09:22→21:20)
[2017-07-07] MEDS: Nicotine 14 MG PATCH TD SCH (13:11)
--- NOTE | 2017-07-07 14:15 | RAD ---
RIGHT SHOULDER RADIOGRAPHS THREE VIEWS: 07/07/2017 PROVIDED CLINICAL HISTORY: Right shoulder pain status post fall. FINDINGS: There is no evidence for fracture or other acute osseous abnormality. If there is persistent clinica l concern, conservative management and follow-up imaging are advised. IMPRESSION: As above. POS: [facility]
--- NOTE | 2017-07-07 14:22 | RAD ---
LEFT SHOULDER RADIOGRAPHS THREE VIEWS: 07/07/2017 PROVIDED CLINICAL HISTORY: Left shoulder pain status post fall. COMPARISON: 12/28/2015 FINDINGS: There is no evidence for fracture or other acute osseous abnormality. If there is persistent clinica l concern, conservative management and follow-up imaging are advised. IMPRESSION: As above. POS: [facility]
--- NOTE | 2017-07-07 14:22 | CON ---
DATE OF CONSULTATION: 07/07/2017 Joseline Logan is a 62-year-old female, morbidly obese, 90 kg, who presents to the ER with a week and a half history of increased shortness of breath and cough, unresponsive to usual medication. She sees Dr. Sanford, who was supposed to see him as of this morning, but presented last night at 2:00 with the above symptoms. This morning, she says she is feeling better. She is still short of breath. Sputum is relatively clear. Denies any chest pain. She also said she is a former smoker. On admission, sats are 96% on room air. Admission blood pressure was 88/46. Respirations of 20. PAST MEDICAL HISTORY: Pertinent for former smoker; COPD; previous sleep study done several years ago , which apparently was negative, but she is clearly complaining of being sleepy, tired, and weak. Otherwise pertinent for chronic pain, arthritis, asthma, obesity, deconditioning. PAST SURGICAL HISTORY: Previous surgeries, multiple, cholecystectomy, hysterectomy, catheterization, bladder surgery, tonsillectomy, knee surgery, back surgery. Tobacco: Smoking, 10 years ago. Alcohol, none. Drugs, none. ALLERGIES: Multiple, CLINDAMYCIN, METFORMIN, NAPROSYN, TRAMADOL. HOME MEDICATIONS: Include tizanidine 4 mg, hydroxyzine, guaifenesin, chlordiazepoxide 20, Ditropan 1 0, metoprolol 50, losartan 50, DuoNeb, hydrocodone, [place], Zetia, Nexium, enalapril 5, Celexa 20, Sym bicort. REVIEW OF SYSTEMS: Otherwise, 10-point negative. Please note, I reviewed her extensive medical records, all x-rays personally. Initial x-ray showed n o acute infiltrates. PHYSICAL EXAMINATION: GENERAL: She appears to be in no acute distress. VITAL SIGNS: Sats are 96 on room air, respirations 20, blood pressure 130/80. LUNGS: Decreased breath sounds, no wheezing. CARDIAC: Normal S1 and S2. No gallops. ABDOMEN: Soft. No masses. COPD exacerbation, bronchitis. Chronic pain. Her creatinine is 2.9, baseline. Glucose 204. White count 8.9, H and H are unremarkable. Electroly amie are normal. IMPRESSION: 1. Chronic obstructive pulmonary disease exacerbation, bronchitis. 2. Renal failure. 3. Morbid obesity. She was started on steroids, nebulizer treatments, which would I agree. She probably needs to have a repeat sleep study, outpatient basis. We will notify Dr. Sanford. We will follow. This is a consultation note of 70 minutes of which 50% wa s spent at direct patient's bedside care.
--- NOTE | 2017-07-07 14:38 | RAD ---
RIGHT KNEE RADIOGRAPHS FOUR VIEWS: 07/07/2017 PROVIDED CLINICAL HISTORY: Pain status post fall. COMPARISON: 04/26/2011 FINDINGS: Advanced degenerative changes are seen tri-compartmentally. There is no evidence for fracture or oth er acute osseous abnormality. Intraarticular bodies are seen in the region of the suprapatellar burs a. Vascular calcifications are seen. IMPRESSION: Degenerative changes without evidence for an acute abnormality. If there is persistent clinical conc maricruz, conservative management and follow-up imaging are advised. POS: [facility]
--- NOTE | 2017-07-07 14:45 | PDOC.EVN ---
Event Note - Event Note Event Note: Pt seen and examined. walking in the hallways in street clothes w/o Oxygen.Chart ,labs reviewed in entirety. c/o pain in left shoulder,fell 1 week ago.No swelling/brusing/tenderness or limitation w ROM but she is insistant that she can't move it. Will get X ray. She is on room air w minimal wheezing on my exam .suspect is at baseline .but pt insists that she would like to stay in hospital for 2-3 days "to get better". will defer to her PCCM team..
[2017-07-07] MEDS: Enoxaparin Sodium 30 MG/0.3 ML SYRINGE SC SCH (21:17)
[2017-07-08] MEDS: HYDROcodone/Acetaminophen 5/325 mg Tablet PO PRN ×4 (06:33→22:28)
[2017-07-08] MEDS: Mometasone/Formoterol 120 PUFF INHALER INH SCH ×2 (07:54→18:40)
[2017-07-08] MEDS: predniSONE 20 MG TAB PO SCH (08:23)
[2017-07-08] MEDS: Famotidine 20 MG TAB PO SCH (08:24)
[2017-07-08] MEDS: Escitalopram Oxalate 20 mg Tablet PO SCH (08:25)
[2017-07-08] MEDS: Oxybutynin 5 MG TAB PO SCH ×2 (08:25→20:07)
[2017-07-08] MEDS: guaiFENesin ER 600 MG TAB PO SCH ×2 (08:25→20:07)
[2017-07-08] MEDS: Losartan 25 MG TAB PO SCH (08:26)
[2017-07-08] MEDS: Nicotine 14 MG PATCH TD SCH (12:48)
[2017-07-08] MEDS: tiZANidine HCl 4 MG TAB PO PRN (12:58)
--- NOTE | 2017-07-08 13:06 | DIS ---
DATE OF ADMISSION: 07/07/2017 DATE OF DISCHARGE: 07/08/2017 FINAL DIAGNOSES: At the time of discharge, 1. Chronic obstructive pulmonary disease, mild exacerbation. 2. History of chronic kidney disease. 3. Mitral valve prolapse, stable. 4. Hyperlipidemia. 5. Gastroesophageal reflux disease. 6. Hypertension. 7. Schizoaffective disorder. 8. Acute kidney injury most likely related to low volume status. CONSULTANTS: Dr. Hendrikcs, Respiratory/Pulmonary Service. HOSPITAL COURSE: The patient is a 62-year-old female with history of COPD, CKD stage 3, hy perlipidemia, hypertension, mitral valve prolapse who presented to the emergency department for evalu ation of shortness of breath. According to her, she had 1 week history of dyspnea on exertion, some cough productive of some thick white phlegm. As she is not very compliant, I talked to her. Pulmono logist, Dr. Sanford, who said that she missed multiple appointments with him, but during this emergency room evaluation, she was found to have room air saturation down to 93%-94% and her creatinine was up to 2.1 from her baseline which was normally about between 1.1 and 1.5, so decision was made about ke ep her in the hospital. Even her chest x-ray did not show any acute abnormalities and her white coun t was 11,000 with hemoglobin of 11.8. CK-MB was normal. Troponin I was undetectable, so the patient was admitted to the hospital for observation. She was given Solu-Medrol switched to p.o. prednisone . We consulted dyeing machine tender who recommended to do outpatient sleep apnea studies and continue her D uoNebs. We repeated her creatinine level next morning which was slightly better, but was still eleva josephine, but she is able to ambulate. She does not have any respiratory distress. Her cough improved an d she is not febrile. The decision was made about discharging her home. I stopped her BENNY inhibitor and I asked her to follow up with her primary doctor, Dr. Hernandez, in 1 week to check on her kidney s tatus and her questionable urinary tract infection status. Apparently, she was given levofloxacin fo r 2 weeks for her 500 mg once a day for her UTI and her urinalysis was not that clear yesterday in e emergency room, so she understands that she needs to follow up with her primary doctor to check her kidney function. I asked her to avoid any nonsteroidal and anti-inflammatory agents [id number] and the patient was seen and examined before she is discharged, she is not wheezing at all. She is doing well clinically. She does not require any oxygen. She ambulates without any problems and she is discharged home in good condition. Her medications at the time of discharge, all her previous [facility] medications are continued and I just gave her 20 mg of prednisone once a day for the next 3 days.
[2017-07-08] MEDS ORDERED: Sodium Chloride 0.9% 500 ML IV SCH (14:45)
[2017-07-08] MEDS: Enoxaparin Sodium 30 MG/0.3 ML SYRINGE SC SCH (20:06)
--- NOTE | 2017-07-08 21:26 | CON ---
DATE OF CONSULTATION: 07/08/2017 CONSULTING PHYSICIAN: Miguel Lopez M.D. REASON FOR CONSULTATION: Acute kidney injury. REASON FOR ADMISSION: Shortness of breath. HISTORY OF PRESENT ILLNESS: A 62-year-old female with history of COPD, CKD, hyperlipidemia, hyperten cher, who came to the hospital with shortness of breath and is being treated for COPD. The patient w as found to have a creatinine of 2.1 from her baseline of 1.3 and 1.4, and Nephrology was consulted. The patient denies any nausea and vomiting. No shortness of breath or chest pain. No fever or chil ls. Her shortness of breath is better. She was on enalapril and losartan in the hospital, which was stopped this morning. PAST MEDICAL HISTORY: Positive for COPD, CKD stage 3, mitral valve prolapse, hyperlipidemia, GERD, s chizoaffective disorder, hypertension, osteoarthritis, obesity. PAST SURGICAL HISTORY: Cholecystectomy, hysterectomy, right knee surgery, back surgery, tonsillectom y, PTCA, bladder surgery. HOME MEDICATIONS: Mucinex, Toprol, Symbicort, chlordiazepoxide, Zanaflex, Zofran, Vytorin, Nexium, e nalapril, vitamin D3, oxybutynin, DuoNebs, biotin, Cozaar, [place], hydroxyzine, and citalopram. ALLERGIES: CLINDAMYCIN, METFORMIN, NAPROXEN. SOCIAL HISTORY: No smoking, alcohol, or illicit drug abuse. She is a former smoker. FAMILY HISTORY: No history of kidney disease. REVIEW OF SYSTEMS: The following complete review of systems was negative, unless otherwise mentioned in the HPI or below: Constitutional: Weight loss or gain, ability to conduct usual activities. Skin: Rash, itching. Eyes: Double vision, pain. ENT/Mouth: Nose bleeding, neck stiffness, pain, tenderness. Cardiovascular: Palpitations, dyspnea on exertion, orthopnea. Respiratory: Shortness of breath, wheezing, cough, hemoptysis, fever or night sweats. Gastrointestinal: Poor appetite, abdominal pain, heartburn, nausea, vomiting, constipation, or diarrhea. Genitourinary: Urgency, frequency, dysuria, nocturia. Musculoskeletal: Pain, swelling. Neurologic/Psychiatric: Anxiety, depression. Allergy/Immunologic: Skin rash, bleeding tendency. PHYSICAL EXAMINATION: GENERAL: Obese female, in no apparent distress. VITAL SIGNS: Temperature 98.2, pulse 92, respiratory 22, blood pressure 130/83. HEENT: Atraumatic, normocephalic. Oral mucosa is moist. NECK: Supple. HEART: S1, S2 heard. Rate and rhythm regular. RESPIRATORY: Clear. ABDOMEN: Soft. MUSCULOSKELETAL: 1+ edema. DERMATOLOGIC: No skin rash. NEUROLOGIC: Alert, awake. PSYCHIATRIC: Mood and affect normal. LABORATORY AND X-RAY FINDINGS: Hemoglobin 11.1, potassium 4.8, BUN 26, creatinine is 2.19 from 2.1. Her baseline is 1.2-1.3. ASSESSMENT AND PLAN: 1. Acute kidney injury on chronic kidney disease stage 3, most likely from medications. I will hold BENNY inhibitor and ARB given that she has a dose today. Blood pressure is stable. We will start on low dose of IV fluids, so we will start on NS at 50 mL per hour for a total of 500 mL. 2. Anemia, mild. 3. Hyponatremia. 4. Edema, controlled. 5. Hypertension, stable. Plan is to hold nephrotoxic medications and hydrate if tolerated. We will follow. Thank you for the consult.
--- NOTE | 2017-07-08 22:12 | PRG ---
DATE OF SERVICE: 07/08/2017 SUBJECTIVE: Ms. Logan events have been reviewed. She is afebrile. Her main complaint is not wanti ng to go home. OBJECTIVE: VITAL SIGNS: Heart rate 74, respiratory rate is 18, oximetry is 90 on room air, blood pressure 152/6 9. LUNGS: She is not wheezing on exam. HEART: Regular rhythm. ABDOMEN: Soft. IMPRESSION: 1. Chronic obstructive pulmonary disease exacerbation, resolved. 2. Anxiety and depression. 3. Weight gain contributing to her dyspnea on exertion tells me she has gained 50 pounds since I las t saw her. Her weights put in as 207 pounds, but I think she weighs probably more than that. I have no new sugg estions from a management standpoint. I do think she is stable for discharge. I have informed her t hat. She asked me for more hydrocodone as I was leaving the room. I have told her that what an opti on from my standpoint. I get along with her well, but in my experience, she has to have care boundar ies established and actually she probably needs to be discharged home in the morning.
[2017-07-09] MEDS: tiZANidine HCl 4 MG TAB PO PRN (01:18)
[2017-07-09 05:59] LABS: Anion Gap 12 mmol/L (10-20); BUN (Urea Nitrogen) 33 mg/dL (9.8-20.1); Calc. Creatinine Clearance 56 mL/min (70-130); Calcium 9.1 mg/dL (7.8-10.44); Carbon Dioxide 27 mmol/L (23-31); Chloride 98 mmol/L (98-107); Estimated GFR-MDRD 35; Glucose 160 mg/dL (80-115); Potassium 4.5 mmol/L (3.5-5.1); Sodium 132 mmol/L (136-145)
[2017-07-09] MEDS: HYDROcodone/Acetaminophen 5/325 mg Tablet PO PRN ×3 (06:06→16:39)
[2017-07-09 07:55] VITALS: TEMP 98.1
[2017-07-09] MEDS: Mometasone/Formoterol 120 PUFF INHALER INH SCH (08:05)
[2017-07-09] MEDS: predniSONE 20 MG TAB PO SCH (09:32)
[2017-07-09] MEDS: Escitalopram Oxalate 20 mg Tablet PO SCH (09:33)
[2017-07-09] MEDS: Famotidine 20 MG TAB PO SCH (09:33)
[2017-07-09] MEDS: Oxybutynin 5 MG TAB PO SCH (09:33)
[2017-07-09] MEDS: guaiFENesin ER 600 MG TAB PO SCH (09:33)
[2017-07-09 11:25] VITALS: BP 96/50
--- NOTE | 2017-07-09 11:33 | PRG ---
DATE OF SERVICE: 07/09/2017 Ms. Logan has no new complaints. PHYSICAL EXAMINATION: VITAL SIGNS: She is afebrile, heart rates in the 60s, respiratory is 20, oximetry is 98 on room air, blood pressure 160/70. LUNGS: She has no wheezes. IMPRESSION: Stable chronic obstructive pulmonary disease. PLAN: Follow up as an outpatient.
--- NOTE | 2017-07-09 11:43 | PDOC.PN ---
- Subjective Encounter Start Date: 07/09/17 Encounter Start Time: 07:00 Patient seen and examined. No new complaints. No overnight events - Objective Resuscitation Status: Resuscitation Status FULL:Full Resuscitation MAR Reviewed: Yes Vital Signs & Weight: Vital Signs (12 hours) Temp Pulse Resp BP Pulse Ox 07/09/17 11:24 96/50 L 07/09/17 09:41 68 20 160/70 H 07/09/17 08:05 61 20 98 07/09/17 08:00 98.1 F 61 20 07/09/17 07:56 98 07/09/17 07:53 61 20 98 07/09/17 07:10 98.1 F 63 18 194/84 H 96 07/09/17 01:27 73 16 98 Weight Weight 207 lb I&O: 07/08/17 07/09/17 07/10/17 06:59 06:59 06:59 Intake Total 1250 4500 Balance 1250 4500 Result Diagrams: 07/07/17 06:28 07/09/17 05:01 Phys Exam - Physical Examination Constitutional: NAD HEENT: PERRLA, moist MMs, sclera anicteric Neck: no JVD, supple Respiratory: no wheezing, no rales, no rhonchi Cardiovascular: RRR, no significant murmur, no rub Gastrointestinal: soft, non-tender, no distention, positive bowel sounds Musculoskeletal: no edema, pulses present Neurological: non-focal, normal sensation, moves all 4 limbs Lymphatic: no nodes Psychiatric: normal affect, A&O x 3 Skin: no rash, normal turgor Dx/Plan (1) CKD (chronic kidney disease) stage 3, GFR 30-59 ml/min Status: Chronic (2) COPD (chronic obstructive pulmonary disease) Status: Chronic Qualifiers: (3) Dyslipidemia Code(s): E78.5 - HYPERLIPIDEMIA, UNSPECIFIED Status: Chronic (4) Generalized anxiety disorder Code(s): F41.1 - GENERALIZED ANXIETY DISORDER Status: Chronic (5) Hypertension Code(s): I10 - ESSENTIAL (PRIMARY) HYPERTENSION Status: Chronic Qualifiers: - Plan cont current plan of care * stable for discharge * see discharge summery * medication reviewed as below * symptomatic treatment. Review of Systems - Review of Systems Eyes: negative: Pain, Vision Change, Conjunctivae Inflammation, Eyelid Inflammation, Redness, Other ENT: negative: Ear Pain, Ear Discharge, Nose Pain, Nose Discharge, Nose Congestion, Mouth Pain, Mouth Swelling, Throat Pain, Throat Swelling, Other Respiratory: negative: Cough, Dry, Shortness of Breath, Hemoptysis, SOB with Excertion, Pleuritic Pain, Sputum, Wheezing Cardiovascular: negative: chest pain, palpitations, orthopnea, paroxysmal nocturnal dyspnea, edema, light headedness, other Gastrointestinal: negative: Nausea, Vomiting, Abdominal Pain, Diarrhea, Constipation, Melena, Hematochezia, Other Genitourinary: negative: Dysuria, Frequency, Incontinence, Hematuria, Retention , Other Musculoskeletal: negative: Neck Pain, Shoulder Pain, Arm Pain, Back Pain, Hand Pain, Leg Pain, Foot Pain, Other Skin: negative: Rash, Lesions, Jean [place], Bruising, Other - Medications/Allergies Allergies/Adverse Reactions: Allergies Allergy/AdvReac Type Severity Reaction Status Date / Time clindamycin Allergy Nausea Verified 07/07/17 04:45 metformin Allergy Nausea Verified 07/07/17 04:45 naproxen Allergy Nausea Verified 07/07/17 04:45 tramadol Allergy Nausea Verified 07/07/17 04:45 tramadol HCl [From Ultram] Allergy Nausea Verified 07/07/17 04:45 Medications: Current Medications Acetaminophen (Tylenol) 650 mg PO Q4H PRN PRN Reason: Headache/Fever or Pain Hydrocodone Bitart/Acetaminophen (Copan 5/325) 1 tab PO Q4H PRN PRN Reason: Moderate Pain (4-6) Hydrocodone Bitart/Acetaminophen (Copan 5/325) 2 tab PO Q4H PRN PRN Reason: Severe Pain (7-10) Last Admin: 07/09/17 11:29 Dose: 2 tab Albuterol Sulfate (Ventolin) 2.5 mg NEB Q2H PRN PRN Reason: Wheezing Albuterol/Ipratropium (Duoneb) 3 ml NEB [id number] [facility] Last Admin: 07/09/17 07:53 Dose: 3 ml Chlordiazepoxide HCl (Librium) 20 mg PO TID [facility] Last Admin: 07/09/17 09:32 Dose: 20 mg Enoxaparin Sodium (Lovenox) 30 mg SC 2100 [facility] Last Admin: 07/08/17 20:06 Dose: 30 mg Escitalopram Oxalate (Lexapro) 20 mg PO DAILY [facility] Last Admin: 07/09/17 09:33 Dose: 20 mg Famotidine (Pepcid) 20 mg PO DAILY [facility] Last Admin: 07/09/17 09:33 Dose: 20 mg Guaifenesin (Mucinex) 1,200 mg PO BID [facility] Last Admin: 07/09/17 09:33 Dose: 1,200 mg Hydroxyzine HCl (Atarax) 100 mg PO Q6H PRN PRN Reason: Anxiety Levofloxacin (Levaquin) 500 mg PO 0600 [facility] Last Admin: 07/09/17 05:50 Dose: 500 mg Metoprolol Succinate (Toprol Xl) 50 mg PO DAILY [facility] Last Admin: 07/09/17 09:33 Dose: 50 mg Mometasone Furoate/Formoterol Fumar (Dulera 200 Mcg/5 Mcg Inhaler) 1 puff INH BID-RT [facility] Last Admin: 07/09/17 08:05 Dose: 1 puff Nicotine (Nicoderm Patch) 14 mg TD Q24HR [facility] Last Admin: 07/08/17 12:48 Dose: 14 mg Ondansetron HCl (Zofran Odt) 4 mg PO Q6H PRN PRN Reason: Nausea/Vomiting Oxybutynin Chloride (Ditropan) 10 mg PO BID [facility] Last Admin: 07/09/17 09:33 Dose: 10 mg Pantoprazole Sodium (Protonix) 40 mg PO QAM-[facility] Last Admin: 07/09/17 09:33 Dose: 40 mg Prednisone (Prednisone) 40 mg PO QAM-[facility] Last Admin: 07/09/17 09:32 Dose: 40 mg Tizanidine HCl (Zanaflex) 4 mg PO Q8H PRN PRN Reason: Pain Last Admin: 07/09/17 01:18 Dose: 4 mg
--- NOTE | 2017-07-09 11:57 | EKG ---
Test Reason : Blood Pressure : / mmHG Vent. Rate : 084 BPM Atrial Rate : 084 BPM P-R Int : 190 ms QRS Dur : 074 ms QT Int : 410 ms P-R-T Axes : 037 027 030 degrees QTc Int : 484 ms Normal sinus rhythm Normal ECG Confirmed by SUSAN ALMENDAREZ M.D. ([id number]), editorial director ANDERSON CLEMENTS ([id number] on 07/09/2017 11:56:19 AM Referred By: Confirmed By:SUSAN ALMENDAREZ M.D.
[2017-07-09] MEDS: Nicotine 14 MG PATCH TD SCH (13:33)
--- NOTE | 2017-07-09 15:56 | ADD-DIS ---
ADDENDUM Please see discharge summary dictated by Dr. Lopez on 07/08/2017. The patient was discharged, but she decided not to go home until seen by Dr. Sanford and Nephrology. T he patient was medically stable, both physician including Dr. Sanford and Nephrology is cleared her for discharge. I saw this patient this morning. Please see my progress note from today. Patient is me dically stable for discharge today as well.
--- NOTE | 2017-07-09 23:32 | PRG ---
DATE OF SERVICE: 07/09/2017 SUBJECTIVE: Patient was seen and examined at bedside and overnight events noted. Patient denies any shortness of breath or chest pain or palpitation. No history of nausea or vomitin g or diarrhea or fever or chills or cramps. OBJECTIVE: GENERAL: This is a well-built female, in no apparent distress. VITAL SIGNS: Temperature 98.1, pulse 88, respiratory rate , blood pressure 96/50. HEENT: Atraumatic, normocephalic. Oral mucosa is moist NECK: Supple. CARDIOVASCULAR: S1 and S2 heard. Rate and rhythm regular. RESPIRATORY: Clear to auscultation. GASTROINTESTINAL: Abdomen is soft. MUSCULOSKELETAL: No tenderness. No edema. DERMATOLOGIC: No skin rash. NEUROLOGIC: Alert and awake and oriented X3, No focal neurologic deficits. Moving all the extremitie s. PSYCHIATRIC: Mood and affect normal. LABORATORY DATA: Potassium is 4.5, BUN 33, creatinine is 1.5. ASSESSMENT AND PLAN: 1. Acute kidney injury on chronic kidney disease, much better. 2. Anemia. 3. Hyponatremia. 4. Edema, controlled. 5. Hypertension, stable. Overall, renal function is stable. Avoid nephrotoxins.
== END 2017-07-09 16:52 | disposition home or self-care (01) ==
LOC: ERS 22:31 → ERHOLD 07-07 02:23 → 2SE 07-07 04:12 → ONC 07-07 18:09
PROVIDERS: ADMIT Internal Medicine Infectious Disease; ATTEND Internal Medicine Infectious Disease
DX: J44.1 Chronic obstructive pulmonary disease with (acute) exacerbation (principal); I12.9 Hypertensive chronic kidney disease with stage 1 through stage 4 chronic kidney disease, or unspecified chronic kidney disease; N18.9 Chronic kidney disease, unspecified; N17.9 Acute kidney failure, unspecified; I34.1 Nonrheumatic mitral (valve) prolapse; E78.5 Hyperlipidemia, unspecified; K21.9 Gastro-esophageal reflux disease without esophagitis; F20.9 Schizophrenia, unspecified; F41.1 Generalized anxiety disorder; M19.90 Unspecified osteoarthritis, unspecified site; E66.9 Obesity, unspecified; Z68.35 Body mass index [BMI] 35.0-35.9, adult; Z88.1 Allergy status to other antibiotic agents; Z88.6 Allergy status to analgesic agent; Z88.8 Allergy status to other drugs, medicaments and biological substances; Z79.899 Other long term (current) drug therapy
CPT/HCPCS: 36415; 36416; 71045; 80048; 80053; 81003; 81015; 82553; 83880; 84484; 85025; 93005; 94640; 96361; 96372; 96374; 96376; G0378; J1650; J2920; J2930; J7506; J7620

== ENCOUNTER 2017-07-16 14:14 | Inpatient (IN) | payer BC ==
[2017-07-16] MEDS ORDERED: methylPREDNISolone Sod Succ/PF 125 MG/2 ML VIAL ONE (16:25)
[2017-07-16] MEDS ORDERED: Water For Inject, Bacteriostat 30 ML ONE (16:25)
--- NOTE | 2017-07-16 16:26 | RAD ---
RADIOGRAPH CHEST 1 VIEW: 07/16/17 HISTORY: 62-year-old female with dyspnea. FINDINGS: There is no air space density, pulmonary edema, or pneumothorax. The lateral costophrenic angles are sharp. IMPRESSION: No acute pulmonary findings. jacob [] POS: AJ
[2017-07-16 16:27] LABS: Bilirubin Negative (Negative); Blood, Urine Large (Negative); Clarity CLOUDY (Clear); Glucose, Urine (Dipstick) Negative (Negative); Leukocyte Large (Negative); Nitrite Negative (Negative); Protein, Urine (Dipstick) 30 mg/dL (Neg-Trace); Specific Gravity, Urine 1.023 (1.002-1.036); Urobilinogen 0.2 mg/dL (0.2-1.0); pH, Urine 5.5 (5.0-9.0)
[2017-07-16 16:30] LABS: Bacteria/HPF None Seen HPF (None Seen); Hyaline Casts/LPF 0-3 HYALINE CAST LPF (0-3 Hyaline); Pathc Cast-AUWi Flag 0.29 (0-2.49); RBC/HPF GREATER THAN 50-TNTC HPF (0-3)
[2017-07-16 16:34] LABS: #Basophils 0.1 thou/uL (0.0-0.2); #Eosinphils 0.5 thou/uL (0.0-0.7); #Lymphocytes 2.6 thou/uL (1.20-3.40); #Neutrophils 4.1 thou/uL (1.40-6.50); %Basophils 0.8 % (0.0-1.0); %Eosinophils 5.7 % (0.0-10.0); %Monocytes 11.5 % (0.0-10.0); Hemoglobin 10.6 g/dL (12.0-16.0); Mean Corpuscular Hemoglobin 29.2 pg (27.0-31.0); Mean Corpuscular Volume 88.4 fl (81.0-99.0); Platelet Count 189 thou/uL (130-400); RBC Distribution Width 13.1 % (11.5-14.5); Red Blood Cell (RBC) Count 3.62 mill/uL (4.20-5.40); White Blood Cell (WBC) Count 8.3 thou/uL (4.8-10.8)
[2017-07-16 16:59] LABS: ALT (SGPT) 8 U/L (8-55); AST (SGOT) 13 U/L (5-34); Albumin 3.6 g/dL (3.4-4.8); Alkaline Phosphatase 78 U/L (40-150); Anion Gap 13 mmol/L (10-20); BUN (Urea Nitrogen) 25 mg/dL (9.8-20.1); Bilirubin, Total 0.2 mg/dL (0.2-1.2); Calc. Creatinine Clearance 0 mL/min (70-130); Calcium 9.2 mg/dL (7.8-10.44); Carbon Dioxide 25 mmol/L (23-31); Chloride 104 mmol/L (98-107); Estimated GFR-MDRD 49; Globulin 2.9 g/dL (2.4-3.5); Glucose 113 mg/dL (80-115); Lipase 16 U/L (8-78); Magnesium 1.7 mg/dL (1.6-2.6); Potassium 4.9 mmol/L (3.5-5.1); Protein, Total 6.5 g/dL (6.0-8.3); Sodium 137 mmol/L (136-145)
[2017-07-16 17:03] LABS: CKMB 0.9 ng/mL (0-6.6); Troponin I Less than 0.010 ng/mL (< 0.028)
[2017-07-16] MEDS ORDERED: Furosemide 40 MG/4 ML VIAL ONE (17:29)
[2017-07-16] MEDS ORDERED: Acetaminophen 325 MG TAB PO PRN (20:10)
[2017-07-16 20:20] LABS: Troponin I Less than 0.010 ng/mL (< 0.028)
[2017-07-16 21:46] VITALS: BMI 35.6
[2017-07-16 22:51] LABS: Troponin I Less than 0.010 ng/mL (< 0.028)
[2017-07-17] MEDS ORDERED: Nicotine 14 MG PATCH TD SCH (01:00)
[2017-07-17] MEDS ORDERED: Oxybutynin 5 MG TAB PO SCH (01:30)
[2017-07-17] MEDS ORDERED: Atorvastatin Calcium 20 MG TAB PO SCH ×2 (01:30→21:00)
[2017-07-17] MEDS ORDERED: Ezetimibe 10 MG TAB PO SCH (01:30)
[2017-07-17] MEDS: hydrOXYzine 25 MG TAB PO PRN ×3 (01:37→20:43)
[2017-07-17] MEDS: Mometasone/Formoterol 120 PUFF INHALER INH SCH ×2 (06:50→18:56)
[2017-07-17] MEDS: Oxybutynin 5 MG TAB PO SCH ×2 (10:12→20:40)
[2017-07-17] MEDS: guaiFENesin ER 600 MG TAB PO SCH (10:13)
[2017-07-17] MEDS: Escitalopram Oxalate 20 mg Tablet PO SCH (10:13)
[2017-07-17] MEDS: Losartan 25 MG TAB PO SCH (10:13)
[2017-07-17] MEDS: Nicotine 14 MG PATCH TD SCH (10:20)
[2017-07-17] MEDS: HYDROcodone/Acetaminophen 10/325 mg Tablet PO PRN ×2 (13:10→22:35)
--- NOTE | 2017-07-17 14:05 | PDOC.EVN ---
Event Note - Event Note Event Note: [facility] #[id number]
--- NOTE | 2017-07-17 14:39 | HP ---
DATE OF ADMISSION: 07/17/2017 CHIEF COMPLAINT: Shortness of breath. HISTORY OF PRESENT ILLNESS: This is a 62-year-old female who admitted to the hospital after evaluati on by the emergency room as well as Internal Medicine initially in the ER, the patient stated that sh mary was having dyspnea on exertion over the past few weeks; however, states that in the past week, it h as gotten very significantly worse and states that she has also had significant cough and back pain. Admits to having some pressure-like symptoms and sensations in the last 2 days as well. 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 The patient admits to past medical history o f incontinence, hypertension, hyperlipidemia as well as severe anxiety. The patient states that she did have diabetes in the past; however, she has been pursuing weight loss and was told that she is no longer a diabetic and does not need any home medications for her diabetes. The patient otherwise de nies any nausea, vomiting, diarrhea, constipation, fevers or chills. Does admit to chest pain and sh ortness of breath and dyspnea on exertion as mentioned earlier. She states that she has no other all eviating or aggravating factors. Denies any other associated symptoms nor having had these symptoms occur prior to more than 2-3 months ago. The patient is seen and examined in the patient's room. Al l questions answered. ALLERGIES: To CLINDAMYCIN, METFORMIN, NAPROXEN, TRAMADOL, all of which cause apparently hives, rashe s, and/or abdominal pain. The patient is unable to tell me which one is which. SOCIAL HISTORY: The patient is a smoker; however, quit a few years ago. Social drinker. FAMILY HISTORY: Positive for heart failure, [place], diabetes, and hypertension. MEDICATIONS: See MAR. REVIEW OF SYSTEMS: Twelve point review of systems performed. Pertinent positives in the HPI, otherw ise negative. PHYSICAL EXAMINATION: VITAL SIGNS: Blood pressure is 136/64, heart rate is 91, temperature is 97.8, respiratory rate is 18 . GENERAL: The patient is lying in bed, in no acute distress. HEENT: Normocephalic, atraumatic. Pupils equal, round, and react to light and accommodation. Posit natalia for mobile, nontender thyroid. NECK: No lymphadenopathy noted. LUNGS: Clear to auscultation bilaterally. No wheezing, rales or rhonchi noted. CARDIOVASCULAR: Tachycardic, S1, S2. No murmurs, rubs or gallops appreciated. ABDOMEN: Positive bowel sounds, soft, nontender, rotund abdomen. EXTREMITIES: 2+ peripheral pulses. Trace edema in bilateral lower extremities. NEUROLOGIC: Cranial nerves II through XII intact. No loss of motor or sensory function. SKIN: Skin appears dry and intact. Generalized obesity also noted. LABORATORY DATA: CBC: Hemoglobin of 10.6, hematocrit of 32, otherwise CBC within normal limits. BM P: Creatinine of 1.12 with a BUN of 25, otherwise BMP within normal limits. Brain natriuretic pepti de at 494, prior numbers have gone as high as 800. Urinalysis positive for glucose of 30, large bloo d, and squamous epithelial cells also noted. ASSESSMENT: 1. Dyspnea on exertion. 2. Chest pain. 3. Chronic obstructive pulmonary disease. 4. Hypertension. 5. Hyperlipidemia. 6. Anxiety. 7. Bladder incontinence. PLAN: At this point in time, we will admit the patient to the Internal Medicine team. Consults to C ardiology and Pulmonary per patient wishes. We will obtain echocardiogram to evaluate for any possib le changes from echo from prior, which was done in 12/2016. Patient is requesting Lovenox and a stoo l softener. We will gladly oblige. Tele monitoring, cardiac enzymes. If enzymes are negative, may benefit from a cardiac stress test. We will defer final decision to Cardiology and discussion with t chetna patient. At this point in time, patient is clinically stable. I will obtain blood cultures, no i ndications for antibiotics for now. Repeat labs in the morning. Case and plan was discussed with missael hernandez patient at length. She understands and agrees with this plan. Further management per subspecialis t.
[2017-07-17 14:59] LABS: Hemoglobin A1c 5.6 % (4.0-6.0)
[2017-07-17] MEDS: Simvastatin 40 MG TAB PO SCH (20:40)
[2017-07-17] MEDS: Ezetimibe 10 MG TAB PO SCH (20:40)
--- NOTE | 2017-07-17 22:04 | CON ---
DATE OF CONSULTATION: 07/17/2017 HISTORY OF PRESENT ILLNESS: Patient is a 62-year-old woman who presents for evaluation of dyspnea and coughing. In the year 1999, she underwent a cardiac catheterization, she was found to have normal left ventricular systolic function with normal coronary arteries. Patient also has developed COPD. 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 Patient states she was in usual state of health when she started having increasing dyspnea and coughing. She states that she has felt weak for the past few weeks. She reports chest discomfort primarily when she coughs. She denies having any chest pain with exertion. PAST MEDICAL HISTORY: 1. Significant for COPD. 2. Hypertension. 3. Hypercholesterolemia. 4. History of renal insufficiency. 5. Chronic constipation. 6. Osteoarthritis. PAST SURGICAL HISTORY: Tonsillectomy, cholecystectomy, and back surgery. ALLERGIES: CLINDAMYCIN, METFORMIN, NAPROSYN, and TRAMADOL. FAMILY HISTORY: Strong family history of heart disease. MEDICATIONS: See nursing list. REVIEW OF SYSTEMS: Notable for only constipation. PHYSICAL EXAMINATION: GENERAL: This is a well-developed obese woman in no acute distress with blood pressure 120/70. NECK: Full. LUNGS: Coarse breath sounds bilateral. HEART: Regular rate and rhythm. Normal S1, S2 with a 2/6 systolic murmur. ABDOMEN: Distended. EXTREMITIES: Showed trace edema. VASCULAR: Radial pulses are 2+. NEUROLOGIC: Nonfocal. LABORATORY DATA: White blood cell count 8.3, hemoglobin 10.6, hematocrit 32.0, platelet are 189. Sodium is 137, potassium 4.9, chloride 104, bicarbonate 25, BUN 25, creatinine is 1.12. BNP is 434, troponin less than 0.01. Her EKG revealed normal sinus rhythm with T-wave abnormality suggestive of possible ischemia. IMPRESSION: 1. Chest pain, atypical. 2. Abnormal ECG. 3. Elevated BNP level. 4. Hypertension. 5. Hypercholesterolemia. 6. Obesity. PLAN: This patient presents with dyspnea. She is most likely has mild CHF secondary to diastolic dysfunction. Her elevated BNP is most likely secondary to diastolic dysfunction. From a cardiac end point, an echocardiogram obtained for further evaluation. The patient is unable to do stress testing due to her history of severe claustrophobia. Would recommend decreasing dose of her beta- danielle with her history of her COPD. Further recommendations will follow. [facility]
[2017-07-18] MEDS: Docusate 100 MG CAP PO PRN ×2 (04:20→20:56)
[2017-07-18 05:22] LABS: #Lymphocytes 2.2 thou/uL (1.20-3.40); #Monocytes 0.9 thou/uL (0.11-0.59); #Neutrophils 5.9 thou/uL (1.40-6.50); %Basophils 0.2 % (0.0-1.0); %Eosinophils 0.4 % (0.0-10.0); %Lymphocytes 24.3 % (21.0-51.0); %Monocytes 9.8 % (0.0-10.0); %Neutrophils 65.3 % (42.0-75.0); Hemoglobin 10.1 g/dL (12.0-16.0); Mean Corpuscular HGB CONC 33.4 g/dL (32.0-36.0); Mean Corpuscular Hemoglobin 29.5 pg (27.0-31.0); Mean Corpuscular Volume 88.5 fl (81.0-99.0); Mean Platelet Volume 8.2 fL (7.4-10.4); Platelet Count 178 thou/uL (130-400); RBC Distribution Width 13.3 % (11.5-14.5); Red Blood Cell (RBC) Count 3.41 mill/uL (4.20-5.40)
[2017-07-18 05:36] LABS: Anion Gap 13 mmol/L (10-20); BUN (Urea Nitrogen) 44 mg/dL (9.8-20.1); Calc. Creatinine Clearance 60 mL/min (70-130); Calcium 9.3 mg/dL (7.8-10.44); Carbon Dioxide 28 mmol/L (23-31); Chloride 101 mmol/L (98-107); Estimated GFR-MDRD 39; Glucose 145 mg/dL (80-115); Potassium 4.3 mmol/L (3.5-5.1); Sodium 138 mmol/L (136-145)
[2017-07-18] MEDS: Mometasone/Formoterol 120 PUFF INHALER INH SCH ×2 (06:59→18:43)
[2017-07-18] MEDS: HYDROcodone/Acetaminophen 10/325 mg Tablet PO PRN ×2 (07:17→22:35)
[2017-07-18] MEDS: Oxybutynin 5 MG TAB PO SCH ×2 (09:18→20:52)
[2017-07-18] MEDS: Losartan 25 MG TAB PO SCH (09:18)
[2017-07-18] MEDS: hydrOXYzine 25 MG TAB PO PRN ×2 (09:18→17:10)
[2017-07-18] MEDS: guaiFENesin ER 600 MG TAB PO SCH (09:19)
[2017-07-18] MEDS: Escitalopram Oxalate 20 mg Tablet PO SCH (09:19)
[2017-07-18] MEDS: Aspirin 81 mg Enteric Coated Tablet PO SCH (09:19)
[2017-07-18] MEDS: Enoxaparin Sodium 40 MG/0.4 ML SYRINGE SC SCH (09:21)
[2017-07-18] MEDS: Furosemide 40 MG TAB PO SCH (09:21)
[2017-07-18] MEDS: Nicotine 14 MG PATCH TD SCH (09:24)
[2017-07-18] MEDS: tiZANidine HCl 4 MG TAB PO PRN (12:08)
--- NOTE | 2017-07-18 12:10 | PDOC.PN ---
- Subjective Encounter Start Date: 07/18/17 Encounter Start Time: 12:08 Patient seen and examined, no new issues or complaints, all questions answered. - Objective Vital Signs & Weight: Vital Signs (12 hours) Temp Pulse Resp BP BP Pulse Ox 07/18/17 11:33 98.3 F 81 16 158/72 H 95 07/18/17 11:02 80 14 07/18/17 09:15 97.8 F 87 18 07/18/17 07:21 97.8 F 87 18 128/60 96 07/18/17 06:59 80 14 07/18/17 05:31 97.9 F 82 20 168/77 H 94 L Weight Weight 201 lb 3.2 oz I&O: 07/17/17 07/18/17 07/19/17 06:59 06:59 06:59 Intake Total 750 850 Output Total 500 800 Balance 250 50 Result Diagrams: 07/18/17 04:12 07/18/17 04:12 Phys Exam - Physical Examination Constitutional: NAD obese HEENT: PERRLA, moist MMs, sclera anicteric, oral pharynx no lesions Neck: no nodes, no JVD, supple Respiratory: no wheezing, no rales, no rhonchi Cardiovascular: RRR, no significant murmur, no rub Gastrointestinal: soft, non-tender, no distention Musculoskeletal: pulses present, edema present (trace) Neurological: non-focal, normal sensation Psychiatric: normal affect, A&O x 3 Dx/Plan (1) DM II (diabetes mellitus, type II), controlled Code(s): E11.9 - TYPE 2 DIABETES MELLITUS WITHOUT COMPLICATIONS Status: Acute (2) Obesity Code(s): E66.9 - OBESITY, UNSPECIFIED Status: Acute (3) Chest discomfort Code(s): R07.89 - OTHER CHEST PAIN Status: Acute (4) SOB (shortness of breath) Code(s): R06.02 - SHORTNESS OF BREATH Status: Acute - Plan * lasix started * echo pending * will obtain PT today * TSH as well, patient complaining of fatigue and lack of energy * DC plans in 24-48hrs, cardio following as well * case and plan d/w patient at length, she understands and agrees with this plan
[2017-07-18] MEDS: Ezetimibe 10 MG TAB PO SCH (20:51)
[2017-07-18] MEDS: Simvastatin 40 MG TAB PO SCH (20:52)
[2017-07-19 05:02] LABS: #Eosinphils 0.2 thou/uL (0.0-0.7); #Lymphocytes 3.8 thou/uL (1.20-3.40); #Monocytes 0.8 thou/uL (0.11-0.59); #Neutrophils 4.5 thou/uL (1.40-6.50); %Basophils 0.5 % (0.0-1.0); %Eosinophils 1.8 % (0.0-10.0); %Monocytes 8.6 % (0.0-10.0); %Neutrophils 48.1 % (42.0-75.0); Hemoglobin 10.1 g/dL (12.0-16.0); Mean Corpuscular HGB CONC 33.2 g/dL (32.0-36.0); Mean Corpuscular Volume 90.4 fl (81.0-99.0); Mean Platelet Volume 8.6 fL (7.4-10.4); Platelet Count 190 thou/uL (130-400); RBC Distribution Width 13.4 % (11.5-14.5); Red Blood Cell (RBC) Count 3.37 mill/uL (4.20-5.40); White Blood Cell (WBC) Count 9.3 thou/uL (4.8-10.8)
[2017-07-19 05:32] LABS: Anion Gap 12 mmol/L (10-20); BUN (Urea Nitrogen) 51 mg/dL (9.8-20.1); Calc. Creatinine Clearance 55 mL/min (70-130); Calcium 9.3 mg/dL (7.8-10.44); Carbon Dioxide 27 mmol/L (23-31); Chloride 101 mmol/L (98-107); Estimated GFR-MDRD 36; Glucose 100 mg/dL (80-115); Potassium 4.1 mmol/L (3.5-5.1); Sodium 136 mmol/L (136-145)
[2017-07-19] MEDS: hydrOXYzine 25 MG TAB PO PRN (07:19)
[2017-07-19] MEDS: Mometasone/Formoterol 120 PUFF INHALER INH SCH ×2 (07:42→18:34)
[2017-07-19] MEDS: tiZANidine HCl 4 MG TAB PO PRN (08:01)
[2017-07-19] MEDS: guaiFENesin ER 600 MG TAB PO SCH (08:01)
[2017-07-19] MEDS: Losartan 25 MG TAB PO SCH (08:01)
[2017-07-19] MEDS: Escitalopram Oxalate 20 mg Tablet PO SCH (08:02)
[2017-07-19] MEDS: Oxybutynin 5 MG TAB PO SCH ×2 (08:02→20:12)
[2017-07-19] MEDS: Enoxaparin Sodium 40 MG/0.4 ML SYRINGE SC SCH (08:02)
[2017-07-19] MEDS: Aspirin 81 mg Enteric Coated Tablet PO SCH (08:02)
[2017-07-19] MEDS: HYDROcodone/Acetaminophen 10/325 mg Tablet PO PRN ×2 (08:05→16:20)
--- NOTE | 2017-07-19 11:05 | PDOC.PN ---
- Subjective Encounter Start Date: 07/19/17 Encounter Start Time: 10:40 Subjective: f/u for dyspnea and Code Green 07/19/17 for hypotension 60's systolic -: while undergoing stress test. Apparently given Lasix 60mg(new) in last -: 24h, Losartan and Metoprolol. - Objective MAR Reviewed: Yes Vital Signs & Weight: Vital Signs (12 hours) Temp Pulse Resp BP BP Pulse Ox 07/19/17 08:01 98.2 F 77 16 07/19/17 07:40 77 16 97 07/19/17 07:08 98.2 F 76 20 144/67 H 95 07/19/17 04:10 98.6 F 69 18 154/67 H 96 Weight Weight 201 lb 9.6 oz I&O: 07/18/17 07/19/17 07/20/17 06:59 06:59 06:59 Intake Total 850 1615 Output Total 800 100 Balance 50 1515 Result Diagrams: 07/19/17 04:01 07/19/17 04:01 Additional Labs: Accuchecks 07/19/17 09:55 POC Glucose 125 H Microbiology 07/17/17 14:45 Venous blood - Right Arm Blood Culture - Preliminary Specimen has been received and culture in progress. No Growth to date. 07/17/17 14:45 Venous blood - Left Arm Blood Culture - Preliminary Specimen has been received and culture in progress. No Growth to date. Laboratory Tests 07/16/17 07/16/17 07/17/17 16:20 16:20 14:45 Hgb 10.6 L Creatinine 1.12 H Hemoglobin A1c 5.6 TSH 3rd Generation 07/18/17 07/18/17 07/18/17 04:12 04:12 12:41 Hgb 10.1 L Creatinine 1.36 H Hemoglobin A1c TSH 3rd Generation 1.0964 Radiology Reviewed by me: Yes (2D Echo - EF 55%, diast dysfxn) EKG Reviewed by me: Yes (Tele - SR in 60's) Phys Exam - Physical Examination lethargic, opens eyes briefly then falls asleep HEENT: PERRLA, oral pharynx no lesions Neck: no JVD, supple Respiratory: no wheezing, clear to auscultation bilateral Cardiovascular: RRR Gastrointestinal: soft, non-tender, no distention, positive bowel sounds Musculoskeletal: no edema, pulses present Neurological: normal sensation, moves all 4 limbs lethargic Skin: normal turgor, cap refill <2 seconds Dx/Plan (1) Hypotension Status: Acute Comment: Iatrogenic hypotension due to overmedication, d/c Lasix , hold Losartan and Metoprolol, IV NS 1L bolus, serial monitoring (2) CKD (chronic kidney disease) stage 3, GFR 30-59 ml/min Status: Chronic Comment: Avoid nephrotoxic meds and contrast media (3) COPD (chronic obstructive pulmonary disease) Status: Chronic Qualifiers: Comment: Stable, no acute exacerbation (4) Dyspnea Code(s): R06.00 - DYSPNEA, UNSPECIFIED Status: Chronic Comment: Stable on Room Air, supportive (5) Polypharmacy Code(s): Z79.899 - OTHER CIVIL SERVICE CLERK (CURRENT) DRUG THERAPY Status: Acute Comment: Decrease dosing on Atarax, Zanaflex and [place] - Plan social work program coordinator, out of bed/ambulate, DVT proph w/SCDs Continue supportive mgmt -: IV NS 1L bolus -: D/C Lasix -: Hold Losartan and Metoprolol -: Decrease dosing on Zanaflex, Atarax and [place] * Convert to inpt status * AM lab: BMP
[2017-07-19] MEDS ORDERED: hydrOXYzine 25 MG TAB PO PRN (11:07)
[2017-07-19] MEDS ORDERED: tiZANidine HCl 4 MG TAB PO PRN (11:08)
[2017-07-19] MEDS: Furosemide 40 MG TAB PO SCH (11:54)
[2017-07-19] MEDS: Nicotine 14 MG PATCH TD SCH (13:21)
--- NOTE | 2017-07-19 14:00 | NM ---
MYOCARDIAL PERFUSION EVALUATION: INDICATION: History of asthma and moderate to severe COPD and chest pain. RADIOPHARMACEUTICAL: 30 mCi Technetium 99m sestamibi IV with stress and 9 mCi Technetium 99m labeled sestamibi IV with res t. COMPARISON: Chest radiograph dated 07/16/17. FINDINGS: When comparing the rest and stress images, no reversible myocardial perfusion defect is evident. The re is mild left ventricular dilatation. There was normal wall motion and thickening. Estimated LVEF is 64%. IMPRESSION: 1. No scintigraphic evidence of reversible myocardial ischemia. 2. Mild left ventricular dilatation. 3. Estimated left ventricular ejection fraction of 64%. POS: [place]
[2017-07-19] MEDS ORDERED: Regadenoson 0.4 MG/5 ML SYRINGE ONE (16:24)
[2017-07-19] MEDS: Ezetimibe 10 MG TAB PO SCH (20:11)
[2017-07-19] MEDS: Simvastatin 40 MG TAB PO SCH (20:12)
[2017-07-19] MEDS ORDERED: tiZANidine HCl 4 MG TAB PO SCH (21:00)
[2017-07-20 05:57] LABS: Anion Gap 13 mmol/L (10-20); BUN (Urea Nitrogen) 46 mg/dL (9.8-20.1); Calc. Creatinine Clearance 61 mL/min (70-130); Calcium 9.2 mg/dL (7.8-10.44); Carbon Dioxide 26 mmol/L (23-31); Chloride 101 mmol/L (98-107); Estimated GFR-MDRD 38; Glucose 97 mg/dL (80-115); Potassium 4.2 mmol/L (3.5-5.1); Sodium 136 mmol/L (136-145)
[2017-07-20 06:15] LABS: Band 2 % (5-11); Hemoglobin 10.4 g/dL (12.0-16.0); Lymphocytes 40 % (21-51); MDiff Complete? YES; Mean Corpuscular HGB CONC 32.6 g/dL (32.0-36.0); Mean Corpuscular Hemoglobin 29.8 pg (27.0-31.0); Mean Corpuscular Volume 91.6 fl (81.0-99.0); Mean Platelet Volume 7.9 fL (7.4-10.4); Monocytes 7 % (0-10); Neutrophil 51 % (42-75); Platelet Count 213 thou/uL (130-400); RBC Distribution Width 13.6 % (11.5-14.5); Red Blood Cell (RBC) Count 3.48 mill/uL (4.20-5.40); White Blood Cell (WBC) Count 8.3 thou/uL (4.8-10.8)
[2017-07-20] MEDS: Mometasone/Formoterol 120 PUFF INHALER INH SCH (07:05)
[2017-07-20 08:12] VITALS: BP 117/73; TEMP 97.7
[2017-07-20] MEDS: Aspirin 81 mg Enteric Coated Tablet PO SCH (09:50)
[2017-07-20] MEDS: Losartan 25 MG TAB PO SCH (09:51)
[2017-07-20] MEDS: Enoxaparin Sodium 40 MG/0.4 ML SYRINGE SC SCH (09:51)
[2017-07-20] MEDS: guaiFENesin ER 600 MG TAB PO SCH (09:51)
[2017-07-20] MEDS: Oxybutynin 5 MG TAB PO SCH (09:52)
[2017-07-20] MEDS: Escitalopram Oxalate 20 mg Tablet PO SCH (09:52)
[2017-07-20] MEDS: HYDROcodone/Acetaminophen 10/325 mg Tablet PO PRN (09:55)
--- NOTE | 2017-07-20 10:25 | DIS ---
DISCHARGE DIAGNOSES: 1. Dyspnea, multifactorial, stable. 2. Chest pain, atypical, noncardiac. 3. Chronic obstructive pulmonary disease without exacerbation. 4. Hypotension, iatrogenic, resolved. 5. Anxiety disorder. 6. Hypertension, stable. 7. Chronic kidney disease stage 3. 8. Diastolic dysfunction with preserved ejection fraction of 55-60%. CONSULTATIONS: Dr. Hancock with Cardiology Service. PERTINENT LABORATORY AND X-RAY FINDINGS: Creatinine ranged between 1.12-1.48 with estimated GFR rang ing between 36-49. Hemoglobin A1c 5.6, magnesium 1.7. LFTs within normal limits. Troponin I negati ve x3. BNP 439. TSH 1.09. CBC showed a hemoglobin ranging between 10.1-10.6. Blood cultures x2 fr om 07/17/2017 showed no growth at 48 hours. Portable chest x-ray dated 07/16/2017 showed no acute ca rdiopulmonary process. Two-D transthoracic echocardiogram dated 07/18/2017 showed ejection fraction of 55-60%. Diastolic dy sfunction noted, mild aortic stenosis. Mild tricuspid valve regurgitation. Lexiscan stress test frank ed 07/19/2017 showed no evidence for reversible myocardial ischemia. Calculated ejection fraction of 64%. HOSPITAL COURSE: The patient was admitted to the telemetry unit after initially presenting with shor tness of breath in the context of known chronic obstructive pulmonary disease. The patient underwent extensive evaluation due to the dyspnea including cardiac evaluation with 2D transthoracic echocardi ogram showing evidence of diastolic dysfunction. The patient was given a trial of Lasix; however, no josephine with hypotension with the diuretic therapy which was subsequently discontinued and the patient gi santiago IV fluids. The patient underwent a cardiac stress testing at the direction of the Cardiology Ser vice showing no evidence of reversible ischemia. The patient continued on her regular outpatient med ication regimen including general pulmonary supportive measures and antihypertensive regimen. The pa tient was noted with polypharmacy with recommendations for outpatient review of the current medicatio n regimen due to somnolence noted on 07/19/2017. The patient was titrated on multiple medications in cluding Atarax, Risco and Zanaflex. The patient may need additional titration and monitoring on an o utpatient basis. Overall, the patient did remain clinically stable through the remainder of the hosp ital course. Telemetry monitoring showed sinus mechanism without evidence of acute arrhythmia or dys rhythmia. The patient tolerated regular oral intake, voided appropriately and has been ambulatory [facility] assistance or difficulty. I had examined and discussed the results of the patient's testing as well as disposition for outpatient surveillance and followup. The patient has verbalized understand ing of all tests and results, and ready for discharge on 07/20/2017. DISCHARGE MEDICATIONS: 1. Enteric coated aspirin 81 mg 1 tab p.o. daily. 2. Biotin 5 mg p.o. daily. 3. Symbicort 160/4.5 one puff inhaled b.i.d. 4. Chlordiazepoxide 20 mg p.o. t.i.d. 5. Vitamin D3 15,000 units p.o. daily. 6. Lexapro 20 mg p.o. daily. 7. Nexium 40 mg p.o. q.a.m. 8. Ezetimibe/simvastatin 10/40 mg 1 tab p.o. at bedtime. 9. Mucinex 1200 mg p.o. daily. 10. Risco 10/325 mg 1-2 tabs p.o. q.8h. p.r.n. pain. 11. Hydroxyzine 100 mg p.o. every 6 hours p.r.n. 12. DuoNebs 3 mL nebulized q.i.d. p.r.n. 13. Losartan 50 mg p.o. daily. 14. Metoprolol succinate 50 mg p.o. daily. 15. Nicotine patch 14 mg transdermally q.24h. 16. Zofran 4 mg p.o. every 6 hours p.r.n. 17. Ditropan 10 mg p.o. b.i.d. 18. Zanaflex 4 mg p.o. q.8h. p.r.n. muscle spasms. FOLLOWUP: The patient may follow up with her primary care provider, Dr. Wil Hernandez within 7 days of discharge. The patient will follow up with Dr. Shaq Sanford with Pulmonology Service and to call de s office for appointment time and date. CONDITION ON DISCHARGE: Stable. ACTIVITY: Ad yvette. DIET: Heart healthy. CODE STATUS: Full. DISPOSITION: Home on 07/20/2017. Total time preparing and coordinating discharge is 35 minutes.
== END 2017-07-20 13:01 | disposition home or self-care (01) | DRG 312 ==
LOC: ERS 14:14 → OBSVTOIN 18:55 → 2SW 18:55
PROVIDERS: ADMIT Internal Medicine; ATTEND Internal Medicine
DX: I95.2 Hypotension due to drugs (principal); I50.33 Acute on chronic diastolic (congestive) heart failure; E11.22 Type 2 diabetes mellitus with diabetic chronic kidney disease; I08.2 Rheumatic disorders of both aortic and tricuspid valves; N18.3 Chronic kidney disease, stage 3 (moderate); I13.0 Hypertensive heart and chronic kidney disease with heart failure and stage 1 through stage 4 chronic kidney disease, or unspecified chronic kidney disease; J44.9 Chronic obstructive pulmonary disease, unspecified; I95.89 Other hypotension; E66.9 Obesity, unspecified; Z79.899 Other long term (current) drug therapy; Z68.36 Body mass index [BMI] 36.0-36.9, adult; Z87.891 Personal history of nicotine dependence; E78.5 Hyperlipidemia, unspecified; F41.9 Anxiety disorder, unspecified; R32 Unspecified urinary incontinence; K59.09 Other constipation; R94.31 Abnormal electrocardiogram [ECG] [EKG]; E78.00 Pure hypercholesterolemia, unspecified; T50.1X5A Adverse effect of loop [high-ceiling] diuretics, initial encounter
CPT/HCPCS: 36415; 36416; 71045; 78452; 80048; 80053; 81003; 81015; 82553; 83036; 83690; 83735; 83880; 84443; 84484; 85025; 87040; 93005; 93017; 93306; 93798; 94640; 96361; 96374; 96375; A9500; G8978-GP-CK; G8979-GP-CK; G8980-GP-CK; J1650; J1940; J2785; J2930; J7620

== ENCOUNTER 2017-09-19 18:49 | Inpatient (IN) | payer BC ==
[2017-09-19 19:14] LABS: Bilirubin Negative (Negative); Blood, Urine Trace (Negative); Glucose, Urine (Dipstick) Negative (Negative); Leukocyte Moderate (Negative); Nitrite Negative (Negative); Protein, Urine (Dipstick) 30 mg/dL (Neg-Trace); Urobilinogen 0.2 mg/dL (0.2-1.0)
[2017-09-19 19:17] LABS: #Basophils 0.1 thou/uL (0.0-0.2); #Eosinphils 0.3 thou/uL (0.0-0.7); #Lymphocytes 2.7 thou/uL (1.20-3.40); #Monocytes 0.6 thou/uL (0.11-0.59); #Neutrophils 5.9 thou/uL (1.40-6.50); %Basophils 0.6 % (0.0-1.0); %Eosinophils 3.1 % (0.0-10.0); %Lymphocytes 28.3 % (21.0-51.0); %Monocytes 6.2 % (0.0-10.0); %Neutrophils 61.9 % (42.0-75.0); Clarity Hazy (Clear); Hemoglobin 10.5 g/dL (12.0-16.0); Mean Corpuscular HGB CONC 33.5 g/dL (32.0-36.0); Mean Corpuscular Hemoglobin 29.5 pg (27.0-31.0); Mean Corpuscular Volume 88.1 fl (81.0-99.0); Mean Platelet Volume 6.7 fL (7.4-10.4); Platelet Count 330 thou/uL (130-400); RBC Distribution Width 12.8 % (11.5-14.5); Red Blood Cell (RBC) Count 3.57 mill/uL (4.20-5.40); White Blood Cell (WBC) Count 9.5 thou/uL (4.8-10.8)
[2017-09-19 19:25] LABS: Bacteria/HPF None Seen HPF (None Seen); Hyaline Casts/LPF NONE SEEN LPF (0-3 Hyaline); Squamous Epithelial 0-3 HPF (0-3)
[2017-09-19 19:37] LABS: ALT (SGPT) 8 U/L (8-55); AST (SGOT) 10 U/L (5-34); Albumin 3.9 g/dL (3.4-4.8); Alkaline Phosphatase 76 U/L (40-150); Anion Gap 19 mmol/L (10-20); BUN (Urea Nitrogen) 66 mg/dL (9.8-20.1); Bilirubin, Total 0.3 mg/dL (0.2-1.2); Calc. Creatinine Clearance 0 mL/min (70-130); Calcium 9.4 mg/dL (7.8-10.44); Carbon Dioxide 17 mmol/L (23-31); Chloride 102 mmol/L (98-107); Estimated GFR-MDRD 12; Globulin 3.1 g/dL (2.4-3.5); Glucose 119 mg/dL (80-115); Potassium 4.5 mmol/L (3.5-5.1); Sodium 133 mmol/L (136-145)
[2017-09-19] MEDS ORDERED: cefTRIAXone\\ROCEPHIN 2 GM VIAL ONE (20:19)
[2017-09-19] MEDS ORDERED: Sodium Chloride 0.9% 1,000 ML IV SCH (22:35)
[2017-09-20 00:03] VITALS: BMI 31.8
[2017-09-20] MEDS ORDERED: hydrALAZINE 20 MG/ML VIAL SLOW IVP PRN (00:29)
[2017-09-20] MEDS ORDERED: Acetaminophen 500 MG TAB PO PRN (00:29)
[2017-09-20] MEDS ORDERED: Ondansetron ODT 4 MG TAB PO PRN (00:29)
[2017-09-20] MEDS ORDERED: cloNIDine 0.1 MG TAB PO PRN (00:29)
[2017-09-20] MEDS ORDERED: Ondansetron HCl/PF 4 MG/2 ML Vial IVP PRN (00:29)
[2017-09-20] MEDS ORDERED: Fluconazole 100 MG TAB PO SCH ×2 (00:30→09:00)
[2017-09-20] MEDS ORDERED: Melatonin 3 MG TAB PO PRN (00:30)
[2017-09-20] MEDS ORDERED: HYDROcodone/Acetaminophen 10/325 mg Tablet PO PRN (02:31)
[2017-09-20] MEDS: HYDROcodone/Acetaminophen 10/325 mg Tablet PO PRN ×3 (02:36→15:20)
[2017-09-20] MEDS: Sodium Chloride 0.9% 1,000 ML IV SCH ×2 (02:37→10:30)
[2017-09-20 04:54] LABS: Anion Gap 15 mmol/L (10-20); BUN (Urea Nitrogen) 62 mg/dL (9.8-20.1); Calc. Creatinine Clearance 23 mL/min (70-130); Calcium 9.4 mg/dL (7.8-10.44); Carbon Dioxide 23 mmol/L (23-31); Chloride 102 mmol/L (98-107); Estimated GFR-MDRD 14; Glucose 110 mg/dL (80-115); Potassium 4.5 mmol/L (3.5-5.1); Sodium 135 mmol/L (136-145)
[2017-09-20 05:40] LABS: Eosinophils 3 % (0-10); Hemoglobin 10.4 g/dL (12.0-16.0); Lymphocytes 44 % (21-51); MDiff Complete? YES; Mean Corpuscular Hemoglobin 29.3 pg (27.0-31.0); Mean Corpuscular Volume 88.9 fl (81.0-99.0); Mean Platelet Volume 7.4 fL (7.4-10.4); Monocytes 8 % (0-10); Neutrophil 43 % (42-75); PLT Morphology Comment Appears Adequate; Platelet Count 312 thou/uL (130-400); RBC Distribution Width 12.9 % (11.5-14.5); Red Blood Cell (RBC) Count 3.54 mill/uL (4.20-5.40); White Blood Cell (WBC) Count 7.9 thou/uL (4.8-10.8)
--- NOTE | 2017-09-20 06:10 | HP ---
DATE OF ADMISSION: 09/19/2017 PRIMARY CARE PHYSICIAN: Wil Hernandez M.D. PRIMARY PECAN GROWER: Jamarcus Pride M.D. CHIEF COMPLAINT: Painful urination. HISTORY OF PRESENT ILLNESS: This is a 62-year-old female who presents with approximately 1 week history of dysuria, malodorous urine, frequency, and decreased overall urination over the last week. The patient states she was called in a prescription by her primary care provider for Bactrim, which she is apparently allergic to. The patient states she was then called in ciprofloxacin, which she took for 2-3 days without relief of her symptoms. The patient was also placed on Pyridium; howev er, this turned into her sheets orange and did not improve her symptoms. The patient states she has had urinary tract infections in the remote past, but nothing currently. The patient admits to pain i n her lower abdomen, chills, but did not specifically documented fever at home. The patient initiall y presented to the ER complaining of 10/10 suprapubic pain. At which point, urinalysis was suspiciou s for infectious process and patient received intravenous normal saline and Rocephin 2 grams x1 dose. The patient was also noted with acute kidney injury in the context of chronic kidney disease stage 3. The patient was transferred to the medical floor for further evaluation. PAST MEDICAL HISTORY: 1. Chronic obstructive pulmonary disease. 2. Anxiety disorder. 3. Hypertension. 4. Chronic kidney disease stage 3. 5. Diastolic dysfunction with preserved ejection fraction of 55%-60%. 6. Mitral valve prolapse. 7. Schizoaffective disorder. 8. Osteoarthritis. 9. Morbid obesity. PAST SURGICAL HISTORY: 1. Status post cholecystectomy. 2. Status post hysterectomy. 3. Status post right knee surgery. 4. Status post lumbar diskectomy. 5. Status post tonsillectomy. 6. Status post percutaneous transluminal coronary angioplasty. 7. Status post bladder suspension. CURRENT MEDICATIONS: Based on recent discharge on 07/20/2017: 1. Enteric coated aspirin 81 mg 1 tab p.o. daily. 2. Biotin 5 mg p.o. daily. 3. Symbicort 160/4.5 one puff inhaled b.i.d. 4. Chlordiazepoxide 20 mg p.o. t.i.d. 5. Vitamin D3, 15,000 units p.o. daily. 6. Lexapro 20 mg p.o. daily. 7. Nexium 40 mg p.o. daily. 8. Ezetimibe/simvastatin 10/40 mg 1 tab p.o. at bedtime. 9. [place] 10/325 mg 1-2 tabs p.o. q.8 hours p.r.n. pain. 10. Hydroxyzine 100 mg p.o. q.6 hours p.r.n. 11. DuoNebs 3 mL nebulized q.i.d. p.r.n. 12. Losartan 50 mg p.o. daily. 13. Metoprolol succinate 50 mg p.o. daily. 14. Ditropan 10 mg p.o. b.i.d. 15. Zanaflex 4 mg p.o. q.8 hours p.r.n. muscle spasms. ALLERGIES: CLINDAMYCIN, METFORMIN, NAPROSYN, TRAMADOL, SULFA. FAMILY HISTORY: No inheritable diseases per patient report. SOCIAL HISTORY: The patient is , residing in the [facility]. Former tobacco use, q uitting approximately 10 years prior to this evaluation. Alcohol use is rare. No illicit drug use. Functional all activities of daily living. REVIEW OF SYSTEMS: The following complete review of systems was negative, unless otherwise mentioned in the HPI or below: Constitutional: Weight loss or gain, ability to conduct usual activities. Sk in: Rash, itching. Eyes: Double vision, pain. ENT/Mouth: Nose bleeding, neck stiffness, pain, ten derness. Cardiovascular: Palpitations, dyspnea on exertion, orthopnea. Respiratory: Shortness of breath, wheezing, cough, hemoptysis, fever or night sweats. Gastrointestinal: Poor appetite, abdomi nal pain, heartburn, nausea, vomiting, constipation, or diarrhea. Genitourinary: Urgency, frequency , dysuria, nocturia. Musculoskeletal: Pain, swelling. Neurologic/Psychiatric: Anxiety, depression . Allergy/Immunologic: Skin rash, bleeding tendency. Otherwise negative except as stated per HPI. PHYSICAL EXAMINATION: VITAL SIGNS: On admission, blood pressure 111/48, pulse 75, respiratory rate 16, temperature 98.8 de grees Fahrenheit, O2 saturation 94% on room air. GENERAL APPEARANCE: This is a 62-year-old female, alert and oriented x3, pleasant, convers ant, in no acute distress. HEENT: Pupils are equal, round, and reactive to light and accommodation. Extraocular muscles are in tact. No scleral icterus, no conjunctival injection. Nares patent. OP is clear. Teeth in fair rep air. NECK: Supple, no cervical adenopathy, no thyromegaly, no carotid bruits, no JVD appreciated. Cervic al spine with full active and passive range of motion. No meningeal signs appreciated. CHEST: Lungs are clear to auscultation bilaterally. CARDIOVASCULAR: S1, S2 with a 1-2/6 systolic ejection murmur loudest in the left upper sternal borde r. ABDOMEN: Obese, soft with mild tenderness to palpation in the suprapubic region. No rebound or guar ding appreciated. No CVA tenderness. Bowel sounds are positive in all four quadrants. EXTREMITIES: Warm and dry with fair turgor. No clubbing, cyanosis or asymmetric edema appreciated. Pulses palpable distally at the dorsalis pedis, posterior tibial, and popliteal arteries bilaterally . Capillary refill less than 2 seconds. NEUROLOGIC: Cranial nerves II-XII are grossly intact. No focal or lateralizing signs appreciated. PERTINENT LABORATORY DATA AND X-RAY FINDINGS: Sodium 133, potassium 4.5, chloride 102, CO2 of 17, BU N 66, creatinine 3.78, estimated GFR of 12, glucose 119, lactic acid level 1.8. LFTs within normal l imits. CBC showed a white blood cell count of 9.5, hemoglobin 10.5, hematocrit 31, platelet count 33 0 with normal differential. Urinalysis showed positive protein, trace blood, moderate leukocyte sumeet rase with greater than 50 to too numerous to count wbc's per high powered field. ASSESSMENT AND PLAN: 1. Acute kidney injury on chronic kidney disease stage 3. We will continue intravenous normal salin e at 100 mL per hour. Avoid nephrotoxic agents and contrast media. Suspect multifactorial presentat ion with dehydration and volume depletion in conjunction with current urinary tract infection. Robyn delaney in the a.m. Consult Nephrology Service in the a.m. 2. Urinary tract infection. We will continue Rocephin 2 grams IV q.24 hours. Await final urine cul ture results. Continue intravenous normal saline at 100 mL per hour. 3. Hypertension. Continue home antihypertensive regimen and monitor clinical response. 4. Chronic obstructive pulmonary disease. No current evidence to suggest exacerbation. Resume Symb icort 160/4.5 one to two puffs b.i.d. Continue DuoNeb 3 mL nebulized q.i.d. p.r.n. 5. Chronic normocytic anemia. Stable currently. Review of previous hemoglobin trend in the [facility] medical record shows stable values. Repeat CBC in the a.m. No evidence to suggest acute blood l oss. 6. Prophylaxis. Sequential compression devices while in bed. Pepcid 20 mg p.o. b.i.d. 7. Code status is FULL. Surrogate medical decision maker is patient's spouse.
[2017-09-20] MEDS: Mometasone/Formoterol 120 PUFF INHALER INH SCH ×2 (06:24→19:58)
[2017-09-20] MEDS ORDERED: Famotidine 20 MG TAB PO SCH (09:00)
[2017-09-20] MEDS ORDERED: Non-Formulary Item 1 EACH (Budesonide-Formoterol [Symbicort 160-4.5] 1 PUFF) INH SCH (09:00)
[2017-09-20] MEDS: Escitalopram Oxalate 20 mg Tablet PO SCH (09:02)
[2017-09-20] MEDS: cefTRIAXone\\ROCEPHIN 2 GM in Sodium Chloride 0.9% 100 ML IVPB SCH (09:11)
[2017-09-20 09:47] LABS: Creatinine, Urine 61.76 mg/dL (47-110)
--- NOTE | 2017-09-20 10:57 | CON ---
DATE OF CONSULTATION: 09/20/2017 REASON FOR CONSULTATION: Elevated creatinine. HISTORY OF PRESENT ILLNESS: This is a very pleasant 62-year-old female with a history of recurrent U TIs, presented to the hospital with one-week history of recurrent UTI. Her creatinine increased from 1.4 to 3. The patient denies any nausea, vomiting or chest pain. The patient did take Pyridium, di d not take Bactrim as prescribed. The patient had pyuria. The patient at this time denies headache, numbness, tingling or weakness. The patient's blood pressure was low. PAST MEDICAL HISTORY: COPD, hypertension, anxiety, mitral valve prolapse, schizoaffective disorder, cholecystectomy, hysterectomy, knee surgery, tonsillectomy. HOME MEDICATIONS: List reviewed. HOSPITAL MEDICATIONS: List reviewed. ALLERGIES: Reviewed. REVIEW OF SYSTEMS: A 15-point review of systems was performed and was negative except for positives noted above. GENERAL: Weakness- HEAD: Headache- NECK: No swelling or lumps. NOSE: No epistaxis or discharge. EYES: No diplopia or pain. RESPIRATORY: Dyspnea- CARDIOVASCULAR: Chest pain- GASTROINTESTINAL: Nausea- /LOAD PLANNER: Hematuria- MUSCULOSKELETAL: No joint pain. NEUROPSYCHIATIC SYSTEMS: No suicidal ideation. No ideation. SKIN: Denies any rash or ulcer. CONSTITUTIONAL: No fever or chills. PHYSICAL EXAMINATION: GENERAL: Patient is awake, alert. VITAL SIGNS: Afebrile, pulse 75, breathing at 16, blood pressure 111/48. HEAD/NECK: Normocephalic. Atraumatic. EYES: EOMI. No deformity. EARS: Clear. No ulcers. NOSE: Intact. No lesions. MOUTH: Clear. No discharge. THROAT: Clear. No exudate. LUNGS: Clear. No crackles. CARDIAC: S1, S2. No rub. ABDOMEN: Benign. BS+. GENITALIA/RECTUM: Brock absent. BACK/EXTREMITIES: Edema 0+ Ulcer- NEUROLOGICAL: Alert and motor intact. SKIN: Rash- Bruise- LYMPHATICS: Edema- Ulcer- LABORATORY DATA: Show creatinine is 3.3 compared to 3.7 yesterday. ASSESSMENT AND RECOMMENDATIONS: 1. Acute kidney injury with chronic kidney disease stage 5 due to decreased effective arterial blood volume and possibly side effect of Pyridium. Would recommend hydration. 2. Anemia, stable. 3. Medications based on glomerular filtration rate are appropriate. 4. Hyponatremia, improved. No indication for dialysis. 5. Metabolic acidosis, improved.
--- NOTE | 2017-09-20 12:16 | CT ---
NONCONTRAST ENHANCED CT IMAGES ABDOMEN AND PELVIS: DATE: 09/20/17. FINDINGS: Noncontrast-enhanced axial images were obtained from the dome of the diaphragm to the pubic symphysis . IV and oral contrast were not given. Images demonstrate the liver and spleen to be unremarkable. The gallbladder has been surgically tyson yifan. Pancreas is unremarkable. Some thickness is seen in the distal esophagus. There is a small am ount of gas seen in the distal esophagus. Calcification over the mitral annulus is seen. Both kidneys are slightly atrophied. There are areas of calcification seen in the right and left kid neys likely representing vascular calcifications. No significant evidence of left-sided hydroureteral nephrosis seen. The left ureter is visualized wi thout evidence of calculi. The right collecting system and calyces demonstrate moderate dilatation. There is mild to moderate r ight ureteral dilatation. There is some inflammatory change surrounding the right perirenal space and surrounding the right cou rse of the ureter. There is abnormal thickening of the bladder wall, more on the right than on the left. This appears t o be slightly more pronounced than on the previous exam. Some diffuse bladder wall thickening is als o seen. Severe L4-5 and moderate L5-S1 degenerative disk change is seen. Multilevel L4-5 and L5-S1 facet hyp ertrophic changes seen. Sclerotic changes are seen in the inferior end plate of L4 and superior end plate of L5. IMPRESSION: 1. Some increased right-sided hydroureteral nephrosis. 2. Bladder wall thickening slightly more pronounced on the right than on the left. POS: [facility]
[2017-09-20] MEDS ORDERED: Oxybutynin 5 MG TAB PO SCH (22:00)
[2017-09-20] MEDS ORDERED: Simvastatin 40 MG TAB PO SCH (22:00)
[2017-09-20] MEDS ORDERED: Ezetimibe 10 MG TAB PO SCH (22:00)
[2017-09-21] MEDS: Sodium Chloride 0.9% 1,000 ML IV SCH ×4 (00:21→16:21)
[2017-09-21] MEDS: HYDROcodone/Acetaminophen 10/325 mg Tablet PO PRN ×2 (00:27→09:35)
[2017-09-21 05:16] LABS: Anion Gap 9 mmol/L (10-20); BUN (Urea Nitrogen) 52 mg/dL (9.8-20.1); Calc. Creatinine Clearance 34 mL/min (70-130); Carbon Dioxide 25 mmol/L (23-31); Chloride 110 mmol/L (98-107); Estimated GFR-MDRD 22; Glucose 97 mg/dL (80-115); Potassium 5.8 mmol/L (3.5-5.1); Sodium 138 mmol/L (136-145)
[2017-09-21 06:14] LABS: Band 1 % (5-11); Eosinophils 2 % (0-10); Hemoglobin 9.3 g/dL (12.0-16.0); Lymphocytes 47 % (21-51); MDiff Complete? YES; Mean Corpuscular HGB CONC 33.2 g/dL (32.0-36.0); Mean Corpuscular Hemoglobin 29.8 pg (27.0-31.0); Mean Corpuscular Volume 89.9 fl (81.0-99.0); Monocytes 7 % (0-10); Neutrophil 43 % (42-75); PLT Morphology Comment Appears Adequate; Platelet Count 242 thou/uL (130-400); RBC Distribution Width 12.7 % (11.5-14.5); RBC Morphology Normal; Red Blood Cell (RBC) Count 3.12 mill/uL (4.20-5.40); White Blood Cell (WBC) Count 5.6 thou/uL (4.8-10.8)
[2017-09-21] MEDS: Mometasone/Formoterol 120 PUFF INHALER INH SCH ×2 (06:36→19:10)
[2017-09-21 08:25] LABS: Anion Gap 14 mmol/L (10-20); BUN (Urea Nitrogen) 47 mg/dL (9.8-20.1); Calc. Creatinine Clearance 36 mL/min (70-130); Carbon Dioxide 21 mmol/L (23-31); Chloride 109 mmol/L (98-107); Estimated GFR-MDRD 24; Glucose 97 mg/dL (80-115); Potassium 4.8 mmol/L (3.5-5.1); Sodium 139 mmol/L (136-145)
[2017-09-21] MEDS: Escitalopram Oxalate 20 mg Tablet PO SCH (09:19)
[2017-09-21] MEDS: Oxybutynin 5 MG TAB PO SCH ×2 (09:19→22:24)
[2017-09-21] MEDS: Famotidine 20 MG TAB PO SCH (09:19)
[2017-09-21] MEDS: cefTRIAXone\\ROCEPHIN 2 GM in Sodium Chloride 0.9% 100 ML IVPB SCH (09:23)
[2017-09-21] MEDS ORDERED: hydrOXYzine 25 MG TAB PO PRN (10:56)
--- NOTE | 2017-09-21 12:41 | PRG ---
DATE OF SERVICE: 09/21/2017 SUBJECTIVE: A 62-year-old female being seen for acute kidney injury with improving creatinine. The patient denies any nausea, vomiting or chest pain. PHYSICAL EXAMINATION: GENERAL: Patient is awake, alert. VITAL SIGNS: Pulse 70, breathing at 16, blood pressure 111/57. HEAD/NECK: Normocephalic. Atraumatic. EYES: EOMI. No deformity. EARS: Clear. No ulcers. NOSE: Intact. No lesions. MOUTH: Clear. No discharge. THROAT: Clear. No exudate. LUNGS: Clear. No crackles. CARDIAC: S1, S2. No rub. ABDOMEN: Benign. BS+. GENITALIA/RECTUM: Brock absent. BACK/EXTREMITIES: Edema 0+ Ulcer- NEUROLOGICAL: Alert and motor intact. SKIN: Rash- Bruise- LYMPHATICS: Edema- Ulcer- LABORATORY DATA: Show creatinine is 2.0. ASSESSMENT AND RECOMMENDATIONS: 1. Acute kidney injury, improved. 2. Hypertension, stable. 3. Anemia, stable. 4. Metabolic acidosis, stable. 5. Hyperkalemia, resolved. No indication for dialysis at this time. Continue hydration.
[2017-09-21] MEDS ORDERED: Simvastatin 40 MG TAB PO SCH (21:00)
[2017-09-21] MEDS ORDERED: Non-Formulary Item 1 EACH (Ezetimibe/Simvastatin [Ezetimibe-Simvastatin 10-40 Mg] 1 TAB) PO SCH (21:00)
[2017-09-21] MEDS ORDERED: Atorvastatin Calcium 20 MG TAB PO SCH (21:00)
[2017-09-21] MEDS ORDERED: Ezetimibe 10 MG TAB PO SCH ×2 (21:00)
[2017-09-21] MEDS: Ciprofloxacin Lactate/D5W 200 MG in Premix Bag 1 BAG IVPB SCH (22:25)
--- NOTE | 2017-09-21 23:02 | PDOC.PN ---
- Subjective Encounter Start Date: 09/21/17 Encounter Start Time: 10:45 Subjective: pt up in bed no complains - Objective Resuscitation Status: Resuscitation Status FULL:Full Resuscitation Vital Signs & Weight: Vital Signs (12 hours) Temp Pulse Resp BP Pulse Ox 09/21/17 20:00 98.0 F 90 18 134/79 96 09/21/17 19:08 58 L 14 97 09/21/17 13:51 74 16 96 Weight Admit Weight 185 lb 8 oz Weight 185 lb 8 oz I&O: 09/20/17 09/21/17 09/22/17 06:59 06:59 06:59 Intake Total 3800 990 Output Total 650 Balance 3150 990 Result Diagrams: 09/21/17 04:38 09/21/17 07:34 Phys Exam - Physical Examination HEENT: PERRLA, moist MMs, sclera anicteric, TM's clear, oral pharynx no lesions , 2+ tonsils Neck: no nodes, no JVD, supple, full ROM Respiratory: no wheezing, no rales, no rhonchi, wheezing present, clear to auscultation bilateral Cardiovascular: RRR, no significant murmur, no rub, gallop, irregular Gastrointestinal: soft, non-tender, no distention, positive bowel sounds Dx/Plan - Plan 1) UTI 2) right sided mild hydrourethral nephrosis 3) ronda on ckd 4) anxiety plan: pt was on cipro for 2-3days prior coming to ER. Her urine indicated no normal naveed but she did have some dilation on her right ureter an bladder wall thickness on the right side. I did call urology who was habitat conservation planner today and discussed the case with her. She recommended to continue cipro bid for 14 days based on her renal function. She will need to follow up with urology. I have provided her the number of our urology but she also has her urology at [facility]. Her creatinine is improving and should be ok for dischage in am. * . Review of Systems - Review of Systems Eyes: negative: Pain, Vision Change, Conjunctivae Inflammation, Eyelid Inflammation, Redness, Other ENT: negative: Ear Pain, Ear Discharge, Nose Pain, Nose Discharge, Nose Congestion, Mouth Pain, Mouth Swelling, Throat Pain, Throat Swelling, Other Respiratory: negative: Cough, Dry, Shortness of Breath, Hemoptysis, SOB with Excertion, Pleuritic Pain, Sputum, Wheezing Cardiovascular: negative: chest pain, palpitations, orthopnea, paroxysmal nocturnal dyspnea, edema, light headedness, other Gastrointestinal: negative: Nausea, Vomiting, Abdominal Pain, Diarrhea, Constipation, Melena, Hematochezia, Other - Medications/Allergies Allergies/Adverse Reactions: Allergies Allergy/AdvReac Type Severity Reaction Status Date / Time sulfamethoxazole Allergy Mild Stomach Verified 09/19/17 23:52 [From Bactrim] Ache trimethoprim [From Bactrim] Allergy Mild Stomach Verified 09/19/17 23:52 Ache clindamycin Allergy Nausea Verified 07/16/17 23:12 metformin Allergy Nausea Verified 07/16/17 23:12 naproxen Allergy Nausea Verified 07/16/17 23:12 tramadol Allergy Nausea Verified 07/16/17 23:12 tramadol HCl [From Ultram] Allergy Nausea Verified 07/16/17 23:12 Medications: Current Medications Acetaminophen (Tylenol) 1,000 mg PO Q6H PRN PRN Reason: Headache/Fever or Mild Pain Hydrocodone Bitart/Acetaminophen ([place] 10/325) 1 tab PO Q6H PRN PRN Reason: Mild-Moderate Pain (1-5) Hydrocodone Bitart/Acetaminophen ([place] 10/325) 2 tab PO Q6H PRN PRN Reason: Moderate to Severe Pain (6-10) Last Admin: 09/21/17 09:35 Dose: 2 tab Albuterol/Ipratropium (Duoneb) 3 ml NEB QID-RT ON LICENSE OF [facility] Last Admin: 09/21/17 19:08 Dose: 3 ml Aspirin (Ecotrin) 81 mg PO DAILY ON LICENSE OF [facility] Atorvastatin Calcium (Lipitor) 20 mg PO [facility] Last Admin: 09/21/17 22:25 Dose: 20 mg Chlordiazepoxide HCl (Librium) 20 mg PO TID ON LICENSE OF [facility] Last Admin: 09/21/17 22:24 Dose: 20 mg Clonidine (Catapres) 0.1 mg PO Q4H PRN PRN Reason: Systolic BP > 180 Ezetimibe (Zetia) 10 mg PO [facility] Last Admin: 09/21/17 22:23 Dose: 10 mg Escitalopram Oxalate (Lexapro) 20 mg PO DAILY ON LICENSE OF [facility] Last Admin: 09/21/17 09:19 Dose: 20 mg Famotidine (Pepcid) 20 mg PO DAILY ON LICENSE OF [facility] Last Admin: 09/21/17 09:19 Dose: 20 mg Hydralazine HCl (Apresoline) 10 mg SLOW IVP Q4H PRN PRN Reason: Systolic BP > 180 Hydroxyzine HCl (Atarax) 100 mg PO Q6H PRN PRN Reason: Anxiety Sodium Chloride (Normal Saline 0.9%) 1,000 mls @ 100 mls/hr IV .Q10H ON LICENSE OF [facility] Last Admin: 09/21/17 16:21 Dose: Not Given Ciprofloxacin/Dextrose 200 mg/ (Device) 100 mls @ 100 mls/hr IVPB Q12HR ON LICENSE OF [facility] Last Admin: 09/21/17 22:25 Dose: 100 mls Melatonin (Melatonin) 6 mg PO HSPRN PRN PRN Reason: Insomnia Metoprolol Succinate (Toprol Xl) 50 mg PO DAILY ON LICENSE OF [facility] Last Admin: 09/21/17 09:30 Dose: Not Given Mometasone Furoate/Formoterol Fumar (Dulera 200 Mcg/5 Mcg Inhaler) 2 puff INH BID-RT ON LICENSE OF [facility] Last Admin: 09/21/17 19:10 Dose: 2 puff Ondansetron HCl (Zofran Odt) 4 mg PO Q6H PRN PRN Reason: Nausea/Vomiting Ondansetron HCl (Zofran) 4 mg IVP Q6H PRN PRN Reason: Nausea/Vomiting Oxybutynin Chloride (Ditropan) 10 mg PO BID ON LICENSE OF [facility] Last Admin: 09/21/17 22:24 Dose: 10 mg Pantoprazole Sodium (Protonix) 40 mg PO 2100 ON LICENSE OF [facility] Last Admin: 09/21/17 22:24 Dose: 40 mg Sodium Chloride (Flush - Normal Saline) 10 ml IVF PRN PRN PRN Reason: Saline Flush
[2017-09-22] MEDS: HYDROcodone/Acetaminophen 10/325 mg Tablet PO PRN ×2 (00:01→09:40)
[2017-09-22] MEDS: Sodium Chloride 0.9% 1,000 ML IV SCH ×2 (01:30→12:50)
[2017-09-22] MEDS: Mometasone/Formoterol 120 PUFF INHALER INH SCH ×2 (06:36→18:38)
[2017-09-22] MEDS ORDERED: Aspirin 81 mg Enteric Coated Tablet PO SCH (09:00)
[2017-09-22] MEDS: Ciprofloxacin Lactate/D5W 200 MG in Premix Bag 1 BAG IVPB SCH ×2 (09:17→09:41)
[2017-09-22] MEDS: Oxybutynin 5 MG TAB PO SCH (09:39)
[2017-09-22] MEDS: Famotidine 20 MG TAB PO SCH (09:40)
[2017-09-22] MEDS: Escitalopram Oxalate 20 mg Tablet PO SCH (09:40)
--- NOTE | 2017-09-22 10:22 | PDOC.PN ---
- Subjective Encounter Start Date: 09/22/17 Encounter Start Time: 10:20 Subjective: multiple somatic CO. PAT, shoulder aches, etc - Objective Resuscitation Status: Resuscitation Status FULL:Full Resuscitation MAR Reviewed: Yes Vital Signs & Weight: Vital Signs (12 hours) Temp Pulse Resp BP Pulse Ox 09/22/17 09:32 79 16 98 09/22/17 08:00 98.0 F 87 18 136/71 95 09/22/17 06:36 82 14 99 09/22/17 06:33 82 14 99 Weight Admit Weight 185 lb 8 oz Weight 185 lb 8 oz I&O: 09/21/17 09/22/17 09/23/17 06:59 06:59 06:59 Intake Total 3800 2190 Output Total 650 Balance 3150 2190 Result Diagrams: 09/21/17 04:38 09/21/17 07:34 Phys Exam - Physical Examination Neck: no JVD Respiratory: clear to auscultation bilateral Cardiovascular: RRR, no significant murmur Gastrointestinal: soft, non-tender, positive bowel sounds Musculoskeletal: edema present Dx/Plan (1) DM II (diabetes mellitus, type II), controlled Code(s): E11.9 - TYPE 2 DIABETES MELLITUS WITHOUT COMPLICATIONS Status: Acute Qualifiers: Diabetes mellitus complication status: with kidney complications Diabetes mellitus complication detail: with chronic kidney disease Chronic kidney disease stage: stage 3 (moderate) (2) Obesity Code(s): E66.9 - OBESITY, UNSPECIFIED Status: Acute Qualifiers: Obesity type: due to excess calories (3) Polypharmacy Code(s): Z79.899 - OTHER CARE HOME (CURRENT) DRUG THERAPY Status: Chronic Comment: Decrease dosing on Atarax, Zanaflex and [place] (4) UTI (urinary tract infection) Status: Acute Qualifiers: Urinary tract infection type: acute cystitis Hematuria presence: without hematuria Qualified Code(s): N30.00 - Acute cystitis without hematuria Comment: e coli (5) CKD (chronic kidney disease) stage 3, GFR 30-59 ml/min Status: Chronic Comment: Avoid nephrotoxic meds and contrast media (6) COPD (chronic obstructive pulmonary disease) Status: Chronic Qualifiers: Comment: Stable, no acute exacerbation (7) Dyslipidemia Code(s): E78.5 - HYPERLIPIDEMIA, UNSPECIFIED Status: Chronic (8) Generalized anxiety disorder Code(s): F41.1 - GENERALIZED ANXIETY DISORDER Status: Chronic (9) Hypertension Code(s): I10 - ESSENTIAL (PRIMARY) HYPERTENSION Status: Chronic Qualifiers: - Plan switch to po cipro -: selected home meds -: FU for DC * .
[2017-09-22 11:18] LABS: Anion Gap 10 mmol/L (10-20); BUN (Urea Nitrogen) 34 mg/dL (9.8-20.1); Calc. Creatinine Clearance 50 mL/min (70-130); Calcium 9.1 mg/dL (7.8-10.44); Carbon Dioxide 23 mmol/L (23-31); Chloride 109 mmol/L (98-107); Estimated GFR-MDRD 35; Glucose 119 mg/dL (80-115); Potassium 4.7 mmol/L (3.5-5.1); Sodium 137 mmol/L (136-145)
--- NOTE | 2017-09-22 12:24 | PRG ---
DATE OF SERVICE: 09/22/2017 SUBJECTIVE: This is a 62-year-old female being seen for acute kidney injury. The patient denies any nausea, vomiting, or chest pain. PHYSICAL EXAMINATION: GENERAL: Patient is awake, alert. VITAL SIGNS: Afebrile, pulse 79, breathing 16, blood pressure is 136/71. HEAD/NECK: Normocephalic. Atraumatic. EYES: EOMI. No deformity. EARS: Clear. No ulcers. NOSE: Intact. No lesions. MOUTH: Clear. No discharge. THROAT: Clear. No exudate. LUNGS: Clear. No crackles. CARDIAC: S1, S2. No rub. ABDOMEN: Benign. BS+. GENITALIA/RECTUM: Brock absent. BACK/EXTREMITIES: Edema 0+ Ulcer- NEUROLOGICAL: Alert and motor intact. SKIN: Rash- Bruise- LYMPHATICS: Edema- Ulcer- LABORATORY DATA: Show hemoglobin 9.3, creatinine is 1.5. ASSESSMENT AND PLAN: 1. Acute kidney injury, improved. 2. Hypertension, stable. 3. Anemia, stable. 4. Metabolic acidosis, stable. No indication for dialysis. I will sign off on this patient. Pleas e reconsult as needed.
--- NOTE | 2017-09-22 15:17 | DIS ---
DATE OF ADMISSION: 09/20/2017 DATE OF DISCHARGE: 09/22/2017 DISCHARGE DISPOSITION: Discharged home. PRIMARY CARE PROVIDER: Dr. Wil Hernandez. FINAL DIAGNOSES: 1. Urinary tract infection, culture negative here, on Cipro when she was admitted. 2. Acute renal failure on chronic kidney disease, stage 3, now chronic kidney disease stage 3. 3. Anemia of chronic kidney disease. 4. Chronic obstructive pulmonary disease. 5. Anxiety disorder. 6. Hypertension. 7. Diastolic dysfunction. 8. Schizoaffective disorder. 9. Osteoarthritis. 10. Morbid obesity. DISCHARGE MEDICATIONS: Cipro 250 b.i.d. for 14 more days. Her usual home medicines, metoprolol 50 m g a day; Symbicort 160/4.5 one inhalation b.i.d.; escitalopram 20 mg a day; Ditropan 10 mg twice a da y; chlordiazepoxide 20 mg t.i.d.; Nexium 40 mg a day; aspirin 81 mg a day; DuoNeb 3 mL q.i.d. p.r.n.; Zetia/Zocor 10/40 one a day; losartan 50 mg a day, which is being held, because of her acute kidney injury. ALLERGIES: SULFAMETHOXAZOLE, TRIMETHOPRIM, CLINDAMYCIN, METFORMIN, NAPROXEN, TRAMADOL. DIET: Diabetic. CODE STATUS: FULL. PENDING AT THE TIME OF DISCHARGE: Nothing. HOSPITAL COURSE: The patient admitted to [facility] through the emergency department with painful urination. She has been on Cipro without relief. Her white count was normal x3, 9.5, 7.9, 5.6. Her admitting creatinine was elevated. Her losartan was held. She is afebrile, normal vital signs. Urine culture was negative. She had an abdominopelvis CT, which reveals some i ncreased right-sided hydroureteronephrosis and bladder wall thickening. She was seen by Dr. Jason [facility], Urology, who gave her, her phone for follow up in 2 weeks. She needs to follow up with her PCP, Dr. Hernandez, in 1 week. She was seen in consultation by Dr. Jamarcus Pride, Nephrology, who recommended I V fluid, stopping Lotensin. She is doing well at the time of discharge. Prescriptions have been wri tten.
[2017-09-22 18:44] VITALS: BP 131/81; TEMP 98.2
[2017-09-22] MEDS ORDERED: Cipro 250 MG TAB PO SCH (20:00)
== END 2017-09-22 18:55 | disposition home or self-care (01) | DRG 690 ==
LOC: ERS 18:49 → T4-B 20:55
PROVIDERS: ADMIT Internal Medicine; ATTEND Internal Medicine
DX: N30.00 Acute cystitis without hematuria (principal); N17.9 Acute kidney failure, unspecified; E87.2 Acidosis; N13.30 Unspecified hydronephrosis; N18.3 Chronic kidney disease, stage 3 (moderate); D63.1 Anemia in chronic kidney disease; F25.9 Schizoaffective disorder, unspecified; M19.90 Unspecified osteoarthritis, unspecified site; Z88.2 Allergy status to sulfonamides; Z88.1 Allergy status to other antibiotic agents; Z88.8 Allergy status to other drugs, medicaments and biological substances; I13.10 Hypertensive heart and chronic kidney disease without heart failure, with stage 1 through stage 4 chronic kidney disease, or unspecified chronic kidney disease; I34.1 Nonrheumatic mitral (valve) prolapse; Z87.891 Personal history of nicotine dependence; E11.22 Type 2 diabetes mellitus with diabetic chronic kidney disease; B96.20 Unspecified Escherichia coli [E. coli] as the cause of diseases classified elsewhere; J44.9 Chronic obstructive pulmonary disease, unspecified; F41.1 Generalized anxiety disorder; E78.5 Hyperlipidemia, unspecified; E87.5 Hyperkalemia; Z87.440 Personal history of urinary (tract) infections; Z68.31 Body mass index [BMI] 31.0-31.9, adult; E66.9 Obesity, unspecified; Z79.82 Long term (current) use of aspirin; Z79.84 Long term (current) use of oral hypoglycemic drugs
CPT/HCPCS: 36415; 74176; 80048; 80053; 81003; 81015; 82570; 83605; 84300; 85007; 85025; 85027; 87086; 94640; 96361; 96365; J0696; J0744; J7050; J7620

== ENCOUNTER 2017-10-20 17:51 | Emergency (ER) | payer BC ==
[2017-10-20 18:33] LABS: #Basophils 0.1 thou/uL (0.0-0.2); #Eosinphils 0.5 thou/uL (0.0-0.7); #Lymphocytes 2.7 thou/uL (1.20-3.40); #Monocytes 0.7 thou/uL (0.11-0.59); #Neutrophils 3.4 thou/uL (1.40-6.50); %Basophils 0.9 % (0.0-1.0); %Eosinophils 6.6 % (0.0-10.0); %Lymphocytes 36.7 % (21.0-51.0); %Monocytes 9.3 % (0.0-10.0); %Neutrophils 46.6 % (42.0-75.0); Hemoglobin 11.6 g/dL (12.0-16.0); Mean Corpuscular HGB CONC 32.6 g/dL (32.0-36.0); Mean Corpuscular Hemoglobin 29.6 pg (27.0-31.0); Mean Corpuscular Volume 90.7 fL (78.0-98.0); Mean Platelet Volume 7.4 fL (7.4-10.4); Platelet Count 203 thou/uL (130-400); RBC Distribution Width 13.3 % (11.5-14.5); Red Blood Cell (RBC) Count 3.93 mill/uL (4.20-5.40); White Blood Cell (WBC) Count 7.3 thou/uL (4.8-10.8)
[2017-10-20 18:53] LABS: ALT (SGPT) 9 U/L (8-55); AST (SGOT) 11 U/L (5-34); Alkaline Phosphatase 92 U/L (40-150); Anion Gap 14 mmol/L (10-20); BUN (Urea Nitrogen) 29 mg/dL (9.8-20.1); Bilirubin, Total 0.3 mg/dL (0.2-1.2); Calc. Creatinine Clearance 0 mL/min (70-130); Calcium 9.7 mg/dL (7.8-10.44); Carbon Dioxide 22 mmol/L (23-31); Chloride 105 mmol/L (98-107); Estimated GFR-MDRD 27; Glucose 123 mg/dL (80-115); Potassium 4.3 mmol/L (3.5-5.1); Sodium 137 mmol/L (136-145)
[2017-10-20 19:09] LABS: Bilirubin Negative (Negative); Blood, Urine Large (Negative); Glucose, Urine (Dipstick) Negative (Negative); Leukocyte Moderate (Negative); Nitrite Negative (Negative); Protein, Urine (Dipstick) 100 mg/dL (Neg-Trace); Specific Gravity, Urine 1.025 (1.005-1.030); Urobilinogen 0.2 mg/dL (0.2-1.0)
[2017-10-20 19:12] LABS: Clarity TURBID (Clear)
[2017-10-20 19:15] LABS: Bacteria/HPF 2+ HPF (None Seen); Hyaline Casts/LPF NONE SEEN LPF (0-3 Hyaline)
[2017-10-20] MEDS ORDERED: Lidocaine 1% (PF) 30 ML VIAL ONE (19:32)
[2017-10-20] MEDS ORDERED: cefTRIAXone\\ROCEPHIN 500 MG VIAL ONE (19:32)
[2017-10-20] MEDS ORDERED: Bacitracin Zinc 1 Packet ONE (19:51)
== END 2017-10-20 19:56 | disposition home or self-care (01) ==
LOC: ERS 17:51
DX: N39.0 Urinary tract infection, site not specified (principal); I12.9 Hypertensive chronic kidney disease with stage 1 through stage 4 chronic kidney disease, or unspecified chronic kidney disease; N18.9 Chronic kidney disease, unspecified; E66.9 Obesity, unspecified; E78.5 Hyperlipidemia, unspecified; F41.9 Anxiety disorder, unspecified; F32.9 Major depressive disorder, single episode, unspecified; J44.9 Chronic obstructive pulmonary disease, unspecified; K21.9 Gastro-esophageal reflux disease without esophagitis; M19.90 Unspecified osteoarthritis, unspecified site; Z87.891 Personal history of nicotine dependence
CPT/HCPCS: 36415; 80053; 81003; 81015; 85025; 87086; 99283; J0696; J2001

== ENCOUNTER 2018-01-14 00:03 | Emergency (ER) | payer BC ==
[2018-01-14] MEDS ORDERED: Acetaminophen 500 MG TAB ONE (01:34)
--- NOTE | 2018-01-14 08:25 | RAD ---
LEFT HIP 2 VIEWS: HISTORY: Fall. Left hip pain. FINDINGS/IMPRESSION: No fracture or dislocation is identified. POS: AJ
== END 2018-01-14 05:05 | disposition home or self-care (01) ==
LOC: ERS 00:03
DX: M25.552 Pain in left hip (principal); J44.9 Chronic obstructive pulmonary disease, unspecified; K21.9 Gastro-esophageal reflux disease without esophagitis; E66.9 Obesity, unspecified; I10 Essential (primary) hypertension; M19.90 Unspecified osteoarthritis, unspecified site; E78.5 Hyperlipidemia, unspecified; F41.9 Anxiety disorder, unspecified; F32.9 Major depressive disorder, single episode, unspecified; I34.1 Nonrheumatic mitral (valve) prolapse; J45.909 Unspecified asthma, uncomplicated; Z79.899 Other long term (current) drug therapy; Z87.891 Personal history of nicotine dependence; W17.89XA Other fall from one level to another, initial encounter

== ENCOUNTER 2018-02-10 16:24 | Emergency (ER) | payer BC ==
[2018-02-10 17:42] LABS: #Basophils 0.1 thou/uL (0.0-0.2); #Eosinphils 0.2 thou/uL (0.0-0.7); #Lymphocytes 1.9 thou/uL (1.20-3.40); #Monocytes 1.3 thou/uL (0.11-0.59); #Neutrophils 6.9 thou/uL (1.40-6.50); %Basophils 0.5 % (0.0-1.0); %Eosinophils 1.7 % (0.0-10.0); %Lymphocytes 18.4 % (21.0-51.0); %Neutrophils 66.5 % (42.0-75.0); Hemoglobin 10.9 g/dL (12.0-16.0); Mean Corpuscular HGB CONC 32.1 g/dL (32.0-36.0); Mean Corpuscular Hemoglobin 29.2 pg (27.0-31.0); Mean Platelet Volume 7.7 fL (7.4-10.4); Platelet Count 342 thou/uL (130-400); Red Blood Cell (RBC) Count 3.72 mill/uL (4.20-5.40); White Blood Cell (WBC) Count 10.3 thou/uL (4.8-10.8)
[2018-02-10 18:08] LABS: ALT (SGPT) 26 U/L (8-55); AST (SGOT) 33 U/L (5-34); Albumin 3.6 g/dL (3.4-4.8); Alkaline Phosphatase 101 U/L (40-150); Anion Gap 15 mmol/L (10-20); BUN (Urea Nitrogen) 45 mg/dL (9.8-20.1); Bilirubin, Total 0.4 mg/dL (0.2-1.2); CK (CPK) 15 U/L (29-168); Calc. Creatinine Clearance 0 mL/min (70-130); Calcium 9.7 mg/dL (7.8-10.44); Carbon Dioxide 23 mmol/L (23-31); Chloride 102 mmol/L (98-107); Estimated GFR-MDRD 21; Globulin 3.9 g/dL (2.4-3.5); Glucose 135 mg/dL (80-115); Lipase 17 U/L (8-78); Potassium 4.5 mmol/L (3.5-5.1); Protein, Total 7.5 g/dL (6.0-8.3); Sodium 135 mmol/L (136-145)
[2018-02-10 19:35] LABS: Bilirubin Negative (Negative); Blood, Urine Large (Negative); Clarity TURBID (Clear); Glucose, Urine (Dipstick) Negative (Negative); Leukocyte Large (Negative); Nitrite Positive (Negative); Protein, Urine (Dipstick) 100 mg/dL (Neg-Trace); Specific Gravity, Urine 1.017 (1.002-1.036); pH, Urine 5.5 (5.0-9.0)
[2018-02-10 19:38] LABS: Squamous Epithelial 21-50 HPF (0-3)
[2018-02-10 19:40] LABS: Pathc Cast-AUWi Flag 409.84 (0-2.49); Yeast-AUWi Flag 309.4 (0-25.0)
[2018-02-10 19:46] LABS: Bacteria/HPF 4+ HPF (None Seen); Hyaline Casts/LPF NONE SEEN LPF (0-3 Hyaline); Manual Microscopic Reviewed? No Path Casts Seen; Yeast-All Forms None Seen HPF (None Seen)
[2018-02-10] MEDS ORDERED: Ciprofloxacin 500 MG TAB ONE (21:06)
--- NOTE | 2018-02-12 11:23 | EKG ---
Test Reason : ABD PAIN Blood Pressure : / mmHG Vent. Rate : 063 BPM Atrial Rate : 063 BPM P-R Int : 188 ms QRS Dur : 070 ms QT Int : 446 ms P-R-T Axes : 054 041 037 degrees QTc Int : 456 ms Normal sinus rhythm Low voltage QRS Borderline ECG Confirmed by LENCHO FANG, CHADWICK ([id number]), communications editor MINNA MONTALVO ([id number]) on 02/12/2018 11:22:35 AM Referred By: Confirmed By:CHADWICK MUSA MD
== END 2018-02-10 21:25 | disposition home or self-care (01) ==
LOC: ERS 16:24
DX: N39.0 Urinary tract infection, site not specified (principal); N28.9 Disorder of kidney and ureter, unspecified; J44.9 Chronic obstructive pulmonary disease, unspecified; K21.9 Gastro-esophageal reflux disease without esophagitis; E78.5 Hyperlipidemia, unspecified; I10 Essential (primary) hypertension; E66.9 Obesity, unspecified; F41.9 Anxiety disorder, unspecified; F32.9 Major depressive disorder, single episode, unspecified; Z87.891 Personal history of nicotine dependence; Z79.899 Other long term (current) drug therapy
CPT/HCPCS: 80053; 81003; 81015; 82550; 83690; 85025; 87077; 87086; 87186; 93005

== ENCOUNTER 2018-05-04 16:28 | Inpatient (IN) | payer BC ==
[2018-05-04 18:14] LABS: #Lymphocytes 0.6 thou/uL (1.20-3.40); #Monocytes 0.2 thou/uL (0.11-0.59); #Neutrophils 6.8 thou/uL (1.40-6.50); %Basophils 0.5 % (0.0-1.0); %Eosinophils 0.3 % (0.0-10.0); %Lymphocytes 8.2 % (21.0-51.0); %Monocytes 3.1 % (0.0-10.0); Hemoglobin 12.7 g/dL (12.0-16.0); Mean Corpuscular HGB CONC 32.8 g/dL (32.0-36.0); Mean Corpuscular Hemoglobin 30.7 pg (27.0-31.0); Mean Corpuscular Volume 93.8 fL (78.0-98.0); Mean Platelet Volume 7.9 fL (7.4-10.4); Platelet Count 245 thou/uL (130-400); RBC Distribution Width 13.6 % (11.5-14.5); Red Blood Cell (RBC) Count 4.14 mill/uL (4.20-5.40); White Blood Cell (WBC) Count 7.7 thou/uL (4.8-10.8)
[2018-05-04 18:51] LABS: ALT (SGPT) 9 U/L (8-55); AST (SGOT) 11 U/L (5-34); Albumin 3.9 g/dL (3.4-4.8); Alkaline Phosphatase 98 U/L (40-150); Anion Gap 19 mmol/L (10-20); BUN (Urea Nitrogen) 37 mg/dL (9.8-20.1); Bilirubin, Total 0.3 mg/dL (0.2-1.2); Calc. Creatinine Clearance 0 mL/min (70-130); Calcium 9.8 mg/dL (7.8-10.44); Carbon Dioxide 19 mmol/L (23-31); Chloride 97 mmol/L (98-107); Estimated GFR-MDRD 18; Glucose 218 mg/dL (80-115); Potassium 4.4 mmol/L (3.5-5.1); Protein, Total 7.9 g/dL (6.0-8.3); Sodium 131 mmol/L (136-145)
--- NOTE | 2018-05-04 19:23 | RAD ---
RADIOGRAPH CHEST 1 VIEW: Date: 05/04/2018 Time: 5:37 p.m. HISTORY: A 63-year-old female with cough. COMPARISON: 05/03/2018 at 11:31 a.m. FINDINGS: Cardiac size is near upper limits of normal. No consolidation, pneumothorax, or effacement of latera l costophrenic angles. Faint, flame-shaped, questionable mild left upper lobe infiltrates, possibly new since prior study. IMPRESSION: 1. Questionable early, mild, left upper lobe infiltrates. 2. Recommend followup. SONG [] POS: AJ
[2018-05-04] MEDS ORDERED: cefTRIAXone\\ROCEPHIN 2 GM VIAL ONE (19:39)
[2018-05-04] MEDS ORDERED: Azithromycin 500 MG VIAL ONE (20:32)
[2018-05-04] MEDS ORDERED: Ondansetron PF 4 MG/2 ML Vial ONE (20:59)
[2018-05-04 22:26] LABS: Lactic Acid 2.3 mmol/L (0.5-2.2)
[2018-05-04] MEDS ORDERED: Ondansetron PF 4 MG/2 ML Vial IVP PRN (23:39)
[2018-05-04] MEDS ORDERED: Acetaminophen 325 MG TAB PO PRN (23:39)
[2018-05-05 03:45] VITALS: BMI 32.0
[2018-05-05] MEDS: HYDROcodone/Acetaminophen 10/325 mg Tablet PO PRN ×4 (04:16→23:25)
[2018-05-05 05:37] LABS: #Lymphocytes 0.9 thou/uL (1.20-3.40); #Monocytes 0.4 thou/uL (0.11-0.59); #Neutrophils 4.5 thou/uL (1.40-6.50); %Basophils 0.1 % (0.0-1.0); %Eosinophils 0.4 % (0.0-10.0); %Lymphocytes 15.3 % (21.0-51.0); %Neutrophils 77.3 % (42.0-75.0); Hemoglobin 12.1 g/dL (12.0-16.0); Mean Corpuscular HGB CONC 32.8 g/dL (32.0-36.0); Mean Corpuscular Hemoglobin 30.6 pg (27.0-31.0); Mean Corpuscular Volume 93.4 fL (78.0-98.0); Mean Platelet Volume 8.5 fL (7.4-10.4); Platelet Count 180 thou/uL (130-400); RBC Distribution Width 13.5 % (11.5-14.5); Red Blood Cell (RBC) Count 3.95 mill/uL (4.20-5.40); White Blood Cell (WBC) Count 5.8 thou/uL (4.8-10.8)
[2018-05-05 05:57] LABS: Anion Gap 20 mmol/L (10-20); BUN (Urea Nitrogen) 42 mg/dL (9.8-20.1); Calc. Creatinine Clearance 30 mL/min (70-130); Calcium 9.3 mg/dL (7.8-10.44); Carbon Dioxide 18 mmol/L (23-31); Chloride 100 mmol/L (98-107); Estimated GFR-MDRD 19; Glucose 142 mg/dL (80-115); Potassium 4.5 mmol/L (3.5-5.1); Sodium 133 mmol/L (136-145)
[2018-05-05] MEDS: Escitalopram Oxalate 20 mg Tablet PO SCH (08:33)
[2018-05-05] MEDS: Folic Acid 1 MG TAB PO SCH (08:33)
[2018-05-05] MEDS: Amlodipine 5 MG TAB PO SCH (08:33)
[2018-05-05] MEDS: cefTRIAXone\\ROCEPHIN 1 GM in Sodium Chloride 0.9% 100 ML IVPB SCH (08:34)
[2018-05-05] MEDS ORDERED: Prevnar 13-Val Conj/PF 0.5 ML SYRINGE IM ONE (09:00)
[2018-05-05] MEDS ORDERED: Enoxaparin Sodium 30 MG/0.3 ML SYRINGE SC SCH (09:00)
[2018-05-05] MEDS ORDERED: Famotidine 20 MG TAB PO PRN (09:07)
--- NOTE | 2018-05-05 14:48 | CON ---
DATE OF CONSULTATION: The patient is a 63-year-old morbidly obese patient who sees Dr. Sanford on a regular basis, who apparently came to the hospital after she was having difficulty breathing, coughing, wheezing, and unresponsive to her usual home medication. In fact, she just saw Dr. Sanford no more than 72 hours ago. Medicine was adjusted. In spite of this, she is feeling a little better. Mostly, she can barely walk 50 feet without getting markedly short of breath. She had a chest x-ray taken yesterday and a CAT scan, I do not see any obvious infiltrate. PAST MEDICAL HISTORY: COPD, previous smoker, chronic pain, reflux, hypertension, carotid disease, previous catheterization, depression, renal failure, and high cholesterol. PAST SURGICAL HISTORY: Cholecystectomy, right knee surgery, spinal surgery, tonsillectomy, cardiac cath, and bladder surgery. SOCIAL HISTORY: Alcohol, minimal. Tobacco, former smoker, quit smoking 10 years ago. HOME MEDICATIONS: 1. Cozaar 50. 2. Ranitidine 75. 3. Hydrocodone. 4. [place] 10. 5. Ditropan 10. 6. Metoprolol 50. 7. Vytorin 1 tablet. 8. Lexapro 20. 9. . 10. Norvasc 5. ALLERGIES: MULTIPLE; SULFA, CLINDAMYCIN, METFORMIN, NAPROSYN, TORADOL. REVIEW OF SYSTEMS: Otherwise 10-point negative. PHYSICAL EXAMINATION: GENERAL: She appears to be in no acute distress. VITAL SIGNS: Sats are 98% on room air, blood pressure 182/74, temperature 97, and respiratory rate 18. CHEST: Decreased breath sounds. No wheezing. CARDIAC: Normal S1, S2. No gallops. ABDOMEN: No masses. LABORATORY DATA: Creatinine is 2.54, sodium 133. Influenza negative. White count 5000, H and H 12 and 38. IMPRESSION AND PLAN: 1. Chronic obstructive pulmonary disease exacerbation. 2. Bronchitis. 3. Morbid obesity. 4. Questionable left upper lung infiltrate. 5. Anxiety and depression. Continue antibiotics, steroids, and neb treatment. We will notify Dr. Sanford. This is a 70-minute consultation note, 50 minutes of direct patient care. Job ID: [id number]
[2018-05-05] MEDS: Azithromycin 500 MG in Sodium Chloride 0.9% 250 ML 250 ML IVPB SCH (15:06)
[2018-05-05] MEDS ORDERED: guaiFENesin/Codeine Phosphate 200 mg/20 mg 10 ml UD Cup PO PRN (17:08)
[2018-05-05] MEDS ORDERED: Benzonatate 100 MG CAP PO PRN (17:08)
[2018-05-05] MEDS ORDERED: Sodium Chloride 0.9% 1,000 ML IV SCH (17:15)
[2018-05-05] MEDS: Atorvastatin Calcium 20 MG TAB PO SCH (19:43)
[2018-05-05] MEDS: guaiFENesin ER 600 MG TAB PO SCH (19:43)
[2018-05-05] MEDS: Oxybutynin 5 MG TAB PO SCH (19:43)
[2018-05-05] MEDS: Ezetimibe 10 MG TAB PO SCH (19:44)
[2018-05-05] MEDS: Heparin 5,000 UNITS/ML VIAL SC SCH (19:44)
--- NOTE | 2018-05-06 01:04 | HP ---
CHIEF COMPLAINT: Shortness of breath. HISTORY OF PRESENT ILLNESS: The patient is a very pleasant 63-year-old female with past medical history of hypertension, COPD, mitral valve prolapse, and GERD, who presents to the hospital with worsening shortness of breath. The patient stated that she has been fighting an upper respiratory infection for the past week. The patient states that she has been having more body aches and pains, increase sputum, and also some cough. The patient stated that she went to her PCP, who recommended for her to come into the ER for further evaluation. The patient also stated that she had seen a veneer gluer a few days ago and was put on steroids and was put on antibiotics. PAST MEDICAL HISTORY: History of, 1. Hypertension. 2. COPD. 3. Mitral valve prolapse. 4. GERD. 5. History of colitis. 6. Hyperlipidemia. 7. Osteoarthritis. 8. Obesity. PAST SURGICAL HISTORY: She has had hysterectomy, right knee surgery, spinal lumbar surgery, tonsillectomy. She has also had a cardiac catheterization and bladder surgery and cholecystectomy. REVIEW OF SYSTEMS: All negative except for the ones mentioned above in the HPI. SOCIAL HISTORY: The patient is a former smoker, quit about 15 years ago. Denies any alcohol use or drug use. She is currently a full code. FAMILY HISTORY: Denies any history of heart disease or cancer. MEDICATIONS: As of the following, she takes, 1. Hydroxyzine 50 mg daily. 2. Escitalopram 20 mg daily. 3. Metoprolol 50 mg daily. 4. Oxybutynin 10 mg daily. 5. Nexium 40 mg daily. 6. Losartan 25 mg daily. 7. Spiriva 1 puff daily. ALLERGIES: SHE IS ALLERGIC TO, 1. BACTRIM. 2. CLINDAMYCIN. 3. METFORMIN. 4. NAPROXEN. 5. TRAMADOL. PHYSICAL EXAMINATION: VITAL SIGNS: Are as of the following; she is afebrile at 98.8, blood pressure is 160/80, 86 heart rate, 100% on room air. GENERAL: She is awake, alert, and oriented x3. Does not appear in any distress. CV: S1 and S2 present. No murmurs, rubs, or gallops. HEENT: Normocephalic, atraumatic. Pupils are equal and reactive to light. LUNGS: Mild expiratory wheezing heard bilaterally. ABDOMEN: Soft and nontender. Bowel sounds are present x2. EXTREMITIES: No edema. Pedal pulses are present x2. NEUROLOGIC: She has 5/5 bilateral upper and lower extremity strength. No focal deficits noted. SKIN: Warm, dry, and intact. No rashes or lesions noted. LABORATORY RESULTS: As of the following; WBCs of 5.8, hemoglobin of 12.1, hematocrit of 36.9, her platelets are 180. Chemistry; sodium of 133, potassium of 4.5, her BUN is 42, creatinine of 2.54. She had a chest x-ray done, which indicated questionable left upper lobe infiltrates. She also had an influenza swab which was negative. ASSESSMENT AND PLAN: The patient is a very pleasant 63-year-old female who comes to the hospital with shortness of breath. 1. Left upper lobe pneumonia, most likely due to community-acquired pneumonia versus superimposed pneumonia after a viral infection. We will start the patient on antibiotics of ceftriaxone and azithromycin. We will start the patient on DuoNebs. We will add some low-dose steroids. Also Tessalon Perles for her cough. We will also give her some Robitussin with codeine at nighttime for cough. 2. Acute on chronic kidney disease. The patient's creatinine is mildly elevated. We will start her on some gentle hydration and continue to monitor. 3. Lactic acidosis, most likely secondary to underlying disease. We will continue to monitor. 4. History of hypertension. We will continue her home medications. 5. Deep venous thrombosis prophylaxis. We will put the patient on heparin subcu. Job ID: [id number]
[2018-05-06] MEDS: cefTRIAXone\\ROCEPHIN 1 GM in Sodium Chloride 0.9% 100 ML IVPB SCH (08:28)
[2018-05-06] MEDS: Amlodipine 5 MG TAB PO SCH (08:28)
[2018-05-06] MEDS: Folic Acid 1 MG TAB PO SCH (08:29)
[2018-05-06] MEDS: Escitalopram Oxalate 20 mg Tablet PO SCH (08:29)
[2018-05-06] MEDS: Heparin 5,000 UNITS/ML VIAL SC SCH ×3 (08:30→20:30)
[2018-05-06] MEDS: guaiFENesin ER 600 MG TAB PO SCH ×2 (08:30→20:30)
[2018-05-06] MEDS: Oxybutynin 5 MG TAB PO SCH ×2 (08:31→20:31)
[2018-05-06] MEDS: HYDROcodone/Acetaminophen 10/325 mg Tablet PO PRN ×3 (09:20→22:10)
[2018-05-06 11:42] LABS: Anion Gap 14 mmol/L (10-20); BUN (Urea Nitrogen) 45 mg/dL (9.8-20.1); Calc. Creatinine Clearance 43 mL/min (70-130); Calcium 9.2 mg/dL (7.8-10.44); Carbon Dioxide 20 mmol/L (23-31); Chloride 104 mmol/L (98-107); Estimated GFR-MDRD 28; Glucose 149 mg/dL (80-115); Potassium 5.1 mmol/L (3.5-5.1); Sodium 133 mmol/L (136-145)
--- NOTE | 2018-05-06 12:32 | PDOC.PN ---
- Subjective Encounter Start Date: 05/06/18 Encounter Start Time: 10:15 Subjective: pt up in bed feels congested - Objective Resuscitation Status - Order Detail: 05/04/18 23:39 Resuscitation Status Routine Resuscitation Status: FULL: Full Resuscitation Vital Signs & Weight: Vital Signs (12 hours) Temp Pulse Resp BP Pulse Ox 05/06/18 11:15 74 12 05/06/18 11:09 80 168/72 H 05/06/18 08:05 76 12 05/06/18 07:09 97.8 F 89 16 188/87 H 97 05/06/18 03:30 92 L 05/06/18 03:05 97.6 F 87 14 179/77 H 96 Weight Weight 192 lb 8 oz I&O: 05/05/18 05/06/18 05/07/18 06:59 06:59 06:59 Intake Total 2379 Output Total 850 Balance 1529 Result Diagrams: 05/05/18 04:34 05/06/18 11:03 Phys Exam - Physical Examination Neck: no nodes, no JVD, supple, full ROM rhonchi and some wheezing Cardiovascular: RRR, no significant murmur, no rub, gallop, irregular Gastrointestinal: soft, non-tender, no distention, positive bowel sounds Musculoskeletal: no edema, pulses present, edema present Dx/Plan (1) Pneumonia Code(s): J18.9 - PNEUMONIA, UNSPECIFIED ORGANISM Status: Acute (2) DM II (diabetes mellitus, type II), controlled Code(s): E11.9 - TYPE 2 DIABETES MELLITUS WITHOUT COMPLICATIONS Status: Acute Qualifiers: Diabetes mellitus complication status: with kidney complications Diabetes mellitus complication detail: with chronic kidney disease Chronic kidney disease stage: stage 3 (moderate) (3) Obesity Code(s): E66.9 - OBESITY, UNSPECIFIED Status: Acute Qualifiers: Obesity type: due to excess calories (4) CKD (chronic kidney disease) stage 3, GFR 30-59 ml/min Status: Chronic Comment: Avoid nephrotoxic meds and contrast media - Plan will decrease steroids to daily -: continue abx -: creatinine improving * . Review of Systems - Review of Systems Respiratory: Wheezing Cardiovascular: negative: chest pain, palpitations, orthopnea, paroxysmal nocturnal dyspnea, edema, light headedness, other Gastrointestinal: negative: Nausea, Vomiting, Abdominal Pain, Diarrhea, Constipation, Melena, Hematochezia, Other - Medications/Allergies Allergies/Adverse Reactions: Allergies Allergy/AdvReac Type Severity Reaction Status Date / Time sulfamethoxazole Allergy Mild Stomach Verified 12/01/17 13:57 [From Bactrim] Ache trimethoprim [From Bactrim] Allergy Mild Stomach Verified 12/01/17 13:57 Ache clindamycin Allergy Nausea Verified 12/01/17 13:57 metformin Allergy Nausea Verified 12/01/17 13:57 naproxen Allergy Nausea Verified 12/01/17 13:57 tramadol Allergy Nausea Verified 12/01/17 13:57 tramadol HCl [From Ultram] Allergy Nausea Verified 12/01/17 13:57 Medications: Current Medications Acetaminophen (Tylenol) 650 mg PO Q4H PRN PRN Reason: Headache/Fever/Mild Pain (1-3) Hydrocodone Bitart/Acetaminophen ([place] 10/325) 1 tab PO Q6H PRN PRN Reason: Pain Last Admin: 05/06/18 09:20 Dose: 1 tab Albuterol/Ipratropium (Duoneb) 3 ml NEB [id number] [facility] Last Admin: 05/06/18 11:15 Dose: 3 ml Amlodipine Besylate (Norvasc) 5 mg PO DAILY [facility] Last Admin: 05/06/18 08:28 Dose: 5 mg Atorvastatin Calcium (Lipitor) 20 mg PO [facility] Last Admin: 05/05/18 19:43 Dose: 20 mg Benzonatate (Tessalon) 100 mg PO TIDPRN PRN PRN Reason: Cough Chlordiazepoxide HCl (Librium) 20 mg PO TID [facility] Last Admin: 05/06/18 08:29 Dose: 20 mg Ezetimibe (Zetia) 10 mg PO HS [facility] Last Admin: 05/05/18 19:44 Dose: 10 mg Escitalopram Oxalate (Lexapro) 20 mg PO DAILY [facility] Last Admin: 05/06/18 08:29 Dose: 20 mg Famotidine (Pepcid) 10 mg PO DAILYPRN PRN PRN Reason: Indigestion Last Admin: 05/05/18 11:10 Dose: 10 mg Folic Acid (Folvite) 1 mg PO DAILY [facility] Last Admin: 05/06/18 08:29 Dose: 1 mg Guaifenesin (Mucinex) 600 mg PO Q12HR [facility] Last Admin: 05/06/18 08:30 Dose: 600 mg Guaifenesin/Codeine Phosphate (Robitussin Ac) 10 ml PO HS PRN PRN Reason: Cough Heparin Sodium (Porcine) (Heparin) 5,000 units SC TID [facility] Last Admin: 05/06/18 08:30 Dose: 5,000 units Ceftriaxone Sodium 1 gm/ (Sodium Chloride) 100 mls @ 200 mls/hr IVPB Q24HR [facility] Last Admin: 05/06/18 08:28 Dose: 100 mls Azithromycin 500 mg/ Sodium (Chloride) 250 mls @ 250 mls/hr IVPB Q24HR [facility] Last Admin: 05/05/18 15:06 Dose: 250 mls Methylprednisolone Sodium Succinate (Solu-Medrol) 40 mg IVP DAILY [facility] Last Admin: 05/06/18 08:30 Dose: 40 mg Metoprolol Succinate (Toprol Xl) 50 mg PO DAILY [facility] Last Admin: 05/06/18 08:30 Dose: 50 mg Ondansetron HCl (Zofran) 4 mg IVP Q6H PRN PRN Reason: Nausea/Vomiting Oxybutynin Chloride (Ditropan) 10 mg PO BID [facility] Last Admin: 05/06/18 08:31 Dose: 10 mg Sodium Chloride (Flush - Normal Saline) 10 ml IVF Q12HR [facility] Last Admin: 05/06/18 08:31 Dose: 10 ml Sodium Chloride (Flush - Normal Saline) 10 ml IVF PRN PRN PRN Reason: Saline Flush
[2018-05-06] MEDS: Azithromycin 500 MG in Sodium Chloride 0.9% 250 ML 250 ML IVPB SCH (16:44)
--- NOTE | 2018-05-06 16:51 | PRG ---
DATE OF SERVICE: 05/06/2018 SUBJECTIVE: Desmond events have been reviewed. She has seen in the office by me two days prior. She had diffuse wheezes but was absolutely no distress, was not tachycardic. She subsequently was admitted. She says that she was vomiting prior to admission. There is no mention of this in the history and physical. I have known Ms. Logan for many years. I have come to the conclusion that she likes being in the hospital. OBJECTIVE: VITAL SIGNS: She is currently afebrile, heart rate 80, respiratory rate 18, oximetry is 95% on room air, blood pressure 138/63. LUNGS: Clear. HEART: Regular rhythm. ABDOMEN: Soft. EXTREMITIES: Without edema. LABORATORY DATA: White count 5.8, hemoglobin 12.1, platelets 180,000 yesterday. Sodium 133, potassium 5.1, chloride 104, bicarb 20, BUN 45, creatinine 1.8. IMPRESSION: 1. Intravascular volume depletion, which is improving. Her admission creatinine was 2.7, now she is 1.8. 2. Anxiety. 3. Depression. She also has a history of heavy alcohol use in the past, but she says she is not drinking. 4. Tobacco use ongoing. She admitted to me in my office because her son was there that she was still smoking. 5. Chronic obstructive pulmonary disease exacerbation. I reviewed her radiographs. I do not feel she has pneumonia. 6. In my opinion, she is stable to go home. She is walking in the halls in no distress. She is not vomiting, and I suspect by tomorrow, she will be intravascularly adequately resuscitated. I will put her back on 40 of prednisone. She can be tapered as per my recommendations when she was in the ER office over a 4-day intervals. Job ID: [id number] MTDD
[2018-05-06] MEDS: Cefdinir 300 MG CAP PO SCH (20:29)
[2018-05-06] MEDS: Atorvastatin Calcium 20 MG TAB PO SCH (20:31)
[2018-05-06] MEDS: Ezetimibe 10 MG TAB PO SCH (20:31)
[2018-05-07] MEDS: HYDROcodone/Acetaminophen 10/325 mg Tablet PO PRN ×3 (06:27→20:58)
[2018-05-07 06:31] LABS: Anion Gap 14 mmol/L (10-20); BUN (Urea Nitrogen) 48 mg/dL (9.8-20.1); Calc. Creatinine Clearance 46 mL/min (70-130); Calcium 9.1 mg/dL (7.8-10.44); Carbon Dioxide 22 mmol/L (23-31); Chloride 102 mmol/L (98-107); Estimated GFR-MDRD 30; Glucose 100 mg/dL (80-115); Potassium 5.2 mmol/L (3.5-5.1); Sodium 133 mmol/L (136-145)
[2018-05-07] MEDS: predniSONE 20 MG TAB PO SCH (09:17)
[2018-05-07] MEDS: guaiFENesin ER 600 MG TAB PO SCH ×2 (09:18→20:59)
[2018-05-07] MEDS: Cefdinir 300 MG CAP PO SCH ×2 (09:18→20:59)
[2018-05-07] MEDS: Amlodipine 5 MG TAB PO SCH (09:18)
[2018-05-07] MEDS: Folic Acid 1 MG TAB PO SCH (09:18)
[2018-05-07] MEDS: Escitalopram Oxalate 20 mg Tablet PO SCH (09:18)
[2018-05-07] MEDS: Oxybutynin 5 MG TAB PO SCH ×2 (09:18→20:58)
[2018-05-07] MEDS: Heparin 5,000 UNITS/ML VIAL SC SCH ×3 (09:20→20:58)
--- NOTE | 2018-05-07 10:54 | EKG ---
Test Reason : Blood Pressure : / mmHG Vent. Rate : 077 BPM Atrial Rate : 077 BPM P-R Int : 170 ms QRS Dur : 076 ms QT Int : 416 ms P-R-T Axes : 053 055 039 degrees QTc Int : 470 ms Normal sinus rhythm Nonspecific ST abnormality Abnormal ECG Confirmed by TIAN BENJAMIN DO ([id number]), food editor MINNA MONTALVO ([id number]) on 05/07/2018 10:54:16 AM Referred By: Confirmed By:ITAN BENJAMIN DO
[2018-05-07 13:40] LABS: Anion Gap 12 mmol/L (10-20); BUN (Urea Nitrogen) 49 mg/dL (9.8-20.1); Calc. Creatinine Clearance 45 mL/min (70-130); Calcium 9.4 mg/dL (7.8-10.44); Carbon Dioxide 26 mmol/L (23-31); Chloride 102 mmol/L (98-107); Estimated GFR-MDRD 30; Glucose 118 mg/dL (80-115); Potassium 5.1 mmol/L (3.5-5.1); Sodium 135 mmol/L (136-145)
--- NOTE | 2018-05-07 19:09 | PDOC.PN ---
- Subjective Encounter Start Date: 05/07/18 Encounter Start Time: 10:15 Subjective: pt up in bed states she still does not feel well - Objective Resuscitation Status - Order Detail: 05/04/18 23:39 Resuscitation Status Routine Resuscitation Status: FULL: Full Resuscitation Vital Signs & Weight: Vital Signs (12 hours) Temp Pulse Resp BP BP Pulse Ox 05/07/18 18:16 73 16 95 05/07/18 14:22 76 14 95 05/07/18 12:24 97.8 F 72 20 137/78 95 05/07/18 10:40 66 20 100 05/07/18 10:11 95 05/07/18 09:18 80 154/77 H 05/07/18 08:00 97.8 F 80 20 154/77 H 95 Weight Weight 192 lb 8 oz I&O: 05/06/18 05/07/18 05/08/18 06:59 06:59 06:59 Intake Total 2379 690 960 Output Total 850 Balance 1529 690 960 Result Diagrams: 05/05/18 04:34 05/07/18 12:54 Dx/Plan (1) Pneumonia Code(s): J18.9 - PNEUMONIA, UNSPECIFIED ORGANISM Status: Acute (2) DM II (diabetes mellitus, type II), controlled Code(s): E11.9 - TYPE 2 DIABETES MELLITUS WITHOUT COMPLICATIONS Status: Acute Qualifiers: Diabetes mellitus complication status: with kidney complications Diabetes mellitus complication detail: with chronic kidney disease Chronic kidney disease stage: stage 3 (moderate) (3) Obesity Code(s): E66.9 - OBESITY, UNSPECIFIED Status: Acute Qualifiers: Obesity type: due to excess calories (4) CKD (chronic kidney disease) stage 3, GFR 30-59 ml/min Status: Chronic Comment: Avoid nephrotoxic meds and contrast media - Plan * .
[2018-05-07] MEDS: Ezetimibe 10 MG TAB PO SCH (20:59)
[2018-05-07] MEDS: Atorvastatin Calcium 20 MG TAB PO SCH (20:59)
--- NOTE | 2018-05-07 21:15 | PRG ---
DATE OF SERVICE: 05/07/2018 SUBJECTIVE: Ms. Logan is stable overnight. OBJECTIVE: VITAL SIGNS: She is afebrile. Heart rate is 77, respiratory rate is 18, oximetry is 95% on room air, and blood pressure is 144/69. LUNGS: Clear. HEART: Regular rhythm. ABDOMEN: Soft and nontender. LABORATORY DATA: Electrolytes were unremarkable. Creatinine is 1.72, was 2.72 on admission. IMPRESSION: 1. Chronic obstructive pulmonary disease exacerbation, mild. She is near her baseline. 2. Acute on chronic kidney disease. Her renal functions are trending toward her baseline. I have taken care of her for many years and she has no problem at all with being in the hospital. She is eating and drinking adequately. She was paying bills and digging through a bunch of personal affairs in her room and absolutely no distress. In my opinion, she could be safely discharged home on a 10- to 14-day steroid taper to continue with the nebulizer with instructions not to smoke. She can continue her Symbicort after discharge. I will be happy to see her 3 to 4 weeks after discharge. I explained to her the compliance of office followup is important, she has missed her last few appointments. Job ID: [id number] [facility]
[2018-05-08] MEDS: HYDROcodone/Acetaminophen 10/325 mg Tablet PO PRN ×2 (04:03→10:27)
[2018-05-08] MEDS: Oxybutynin 5 MG TAB PO SCH (09:24)
[2018-05-08] MEDS: predniSONE 20 MG TAB PO SCH (09:24)
[2018-05-08] MEDS: guaiFENesin ER 600 MG TAB PO SCH (09:25)
[2018-05-08] MEDS: Folic Acid 1 MG TAB PO SCH (09:25)
[2018-05-08] MEDS: Escitalopram Oxalate 20 mg Tablet PO SCH (09:25)
[2018-05-08] MEDS: Cefdinir 300 MG CAP PO SCH (09:25)
[2018-05-08] MEDS: Heparin 5,000 UNITS/ML VIAL SC SCH ×2 (09:26→15:46)
[2018-05-08] MEDS: Amlodipine 5 MG TAB PO SCH (09:26)
[2018-05-08 16:16] VITALS: BP 138/84; TEMP 99
--- NOTE | 2018-05-08 19:09 | DIS ---
DATE OF ADMISSION: 05/04/2018 DATE OF DISCHARGE: 05/08/2018 DISCHARGE DIAGNOSES: As of the followin. Possible pneumonia versus bronchitis. 2. Diabetes. 3. Obesity. 4. Chronic kidney disease. HOSPITAL COURSE: The patient is a very pleasant 63-year-old female, who initially presented to the hospital with complaints of shortness of breath. The patient at this time stated that she was on steroids and some antibiotics as outpatient. The patient's influenza was negative. There was some concern for left upper lobe pneumonia. The patient continued to improve throughout the whole hospital stay. The patient was seen by Pulmonology, who recommended transitioning the patient to oral antibiotic, which was Omnicef. The patient was discharged home. She will follow up with her primary and with Pulmonology as outpatient. PHYSICAL EXAMINATION: VITAL SIGNS: 98.1, 72, 18, 95% on room air, and 155/73. GENERAL: She is awake, alert, and oriented x3. Does not appear in distress. CV: S1 and S2 present. No murmurs, rubs, or gallops. ABDOMEN: Soft and nontender. Bowel sounds are present x2. EXTREMITIES: No edema. Pedal pulses are present x2. DISCHARGE MEDICATIONS: She has been given a prescription for, 1. Prednisone taper, also Tessalon Perles 100 mg t.i.d. p.r.n. 2. Omnicef 300 mg b.i.d. 3. Norvasc 5 mg daily. 4. 20 mg daily. 5. She is going to use her Symbicort as a home spray that she has at home. 6. Ranitidine 75 mg daily p.r.n. 7. Losartan 50 mg daily. 8. Also, she is on Lexapro 20 mg daily. 9. Folic acid 1 p.o. daily. DISCHARGE DISPOSITION: The patient will be discharged home. She has been walking around the hospital without any difficulties. She is walking without any oxygen. FOLLOWUP: She will follow up with her primary care doctor and also with Pulmonology as outpatient. She has been given a taper of 12 days per Pulmonology's recommendation. Job ID: [id number]
--- NOTE | 2018-05-11 18:28 | PQF ---
LESTERKELLIE MARIIA LIDIAFELIZ [id number] [facility]- 296 [id number] CLINICAL DOCUMENTATION CLARIFICATION FORM: POST DISCHARGE Addendum to original discharge summary date: ____ Late entry note date: __ DATE: 05/11/2018 ATTN: DR. BRADFORD Please exercise your independent, professional judgment in responding to the clarification form. Clinical indicators are provided on the bottom of this form for your review Please check appropriate box(s) to clarify if the following diagnosis has been ruled in or ruled out: SEVERE SEPSIS [ ] Ruled in diagnosis [ ] Continue to treat [ x] Resolved [ ] Ruled out diagnosis [ ] Cannot rule out diagnosis [ ] Other diagnosis [ ] Unable to determine In addition, please specify: Present on Admission (POA): [ ] Yes [ ] No [ x ] Unable to determine For continuity of documentation, please document condition throughout progress notes and discharge summary. Thank You. CLINICAL INDICATORS - SIGNS / SYMPTOMS / LABS ER- Dr. Joseph VITAL SIGNS: Temp 98.3, Pulse 76-105, BP 96/58, RR 16-18, 91% on room air LAB: WBC 7.7, Lactic Acid 2.3 H DIAGNOSIS: Severe sepsis from pneumonia H&P- Dr. Bradford VITAL SIGNS: Afebrile at 98.8, BP 160/80, Heart Rate 86, 100% room air LAB: WBC 5.8, questionable left upper lobe infiltrates, influenza swab negative ASSESSMENT: Left upper lobe pneumonia, lactic acidosis PN 05/07- Dr. Sanford VITAL SIGNS: Afebrile, Heart Rate 77, BP 144/69, RR 18, 95% on room air PN 05/06- Dr. Sanford VITAL SIGNS: Afebrile, Heart Rate 80, BP 138/63, RR 18, 95% on room air WBC 5.8, Hemoglobin 12.1, Platelets 180,000 yesterday DC Summary- Dr. Bradford DIAGNOSES: Possible pneumonia vs bronchitis RISK FACTORS Pneumonia vs bronchitis Diabetes TREATMENTS Antibiotics of Ceftriaxone and Azithromycin CBC (This form is maintained as a part of the permanent medical record) 2014 [employer] All Rights Reserved Fahad [email or web address] [phone] MTDD
== END 2018-05-08 16:24 | disposition home or self-care (01) | DRG 871 ==
LOC: ERS 16:28 → ERHOLD 20:08 → 2NO 05-05 03:36 → T4-A 05-06 11:50
PROVIDERS: ADMIT Hospitalist; ATTEND Hospitalist
DX: A41.9 Sepsis, unspecified organism (principal); J18.1 Lobar pneumonia, unspecified organism; J44.0 Chronic obstructive pulmonary disease with (acute) lower respiratory infection; E87.2 Acidosis; J44.1 Chronic obstructive pulmonary disease with (acute) exacerbation; R65.20 Severe sepsis without septic shock; E11.22 Type 2 diabetes mellitus with diabetic chronic kidney disease; N18.3 Chronic kidney disease, stage 3 (moderate); K21.9 Gastro-esophageal reflux disease without esophagitis; E78.5 Hyperlipidemia, unspecified; I12.9 Hypertensive chronic kidney disease with stage 1 through stage 4 chronic kidney disease, or unspecified chronic kidney disease; M19.90 Unspecified osteoarthritis, unspecified site; F41.9 Anxiety disorder, unspecified; F32.9 Major depressive disorder, single episode, unspecified; I34.1 Nonrheumatic mitral (valve) prolapse; N28.9 Disorder of kidney and ureter, unspecified; E86.9 Volume depletion, unspecified; F17.210 Nicotine dependence, cigarettes, uncomplicated; J20.9 Acute bronchitis, unspecified; E66.01 Morbid (severe) obesity due to excess calories; G89.29 Other chronic pain; Z68.32 Body mass index [BMI] 32.0-32.9, adult
CPT/HCPCS: 36415; 71045; 71046; 80048; 80053; 83605; 84484; 85025; 87040; 87804; 90471; 90670; 93005; 94640; 94760; 96361; 96365; 96367; 96375; G0009; J0456; J0696; J1644; J1650; J2405; J2920; J7050; J7506; J7620

== ENCOUNTER 2018-06-12 14:30 | Emergency (ER) | payer BC ==
[2018-06-12] MEDS ORDERED: methylPREDNISolone Sod Succ/PF 125 MG/2 ML VIAL ONE (14:56)
[2018-06-12 14:59] LABS: #Lymphocytes 1.2 thou/uL (1.20-3.40); #Monocytes 0.7 thou/uL (0.11-0.59); #Neutrophils 6.1 thou/uL (1.40-6.50); %Basophils 0.2 % (0.0-1.0); %Eosinophils 0.4 % (0.0-10.0); %Lymphocytes 15.3 % (21.0-51.0); %Neutrophils 76.1 % (42.0-75.0); Hemoglobin 12.1 g/dL (12.0-16.0); Mean Corpuscular HGB CONC 31.4 g/dL (32.0-36.0); Mean Corpuscular Hemoglobin 30.9 pg (27.0-31.0); Mean Corpuscular Volume 98.5 fL (78.0-98.0); Mean Platelet Volume 8.2 fL (7.4-10.4); Platelet Count 194 thou/uL (130-400); RBC Distribution Width 13.5 % (11.5-14.5); Red Blood Cell (RBC) Count 3.92 mill/uL (4.20-5.40)
[2018-06-12 15:13] LABS: ALT (SGPT) 16 U/L (8-55); AST (SGOT) 14 U/L (5-34); Albumin 3.8 g/dL (3.4-4.8); Alkaline Phosphatase 76 U/L (40-150); Anion Gap 15 mmol/L (10-20); BUN (Urea Nitrogen) 21 mg/dL (9.8-20.1); Bilirubin, Total 0.5 mg/dL (0.2-1.2); Calc. Creatinine Clearance 0 mL/min (70-130); Calcium 9.4 mg/dL (7.8-10.44); Carbon Dioxide 26 mmol/L (23-31); Chloride 100 mmol/L (98-107); Estimated GFR-MDRD 36; Glucose 151 mg/dL (80-115); Potassium 4.1 mmol/L (3.5-5.1); Protein, Total 6.8 g/dL (6.0-8.3); Sodium 137 mmol/L (136-145)
--- NOTE | 2018-06-12 16:05 | RAD ---
CHEST TWO VIEWS: Comparison: 05-04-18 History: Cough. Dyspnea. COPD. FINDINGS: Atherosclerosis of the aorta. Normal cardiac silhouette. The pulmonary vessels and hilum are normal. Costophrenic angles are clear. Hyperinflation with chronic changes. No consolidation or mass. No pneu mothorax or osseous abnormalities. IMPRESSION: 1. Atherosclerosis. 2. COPD/hyperinflation. 3. Chronic changes. POS: [facility]
[2018-06-12] MEDS ORDERED: predniSONE 20 MG TAB ONE (16:46)
== END 2018-06-12 18:30 | disposition home or self-care (01) ==
LOC: ERS 14:30
DX: J44.1 Chronic obstructive pulmonary disease with (acute) exacerbation (principal); K21.9 Gastro-esophageal reflux disease without esophagitis; E78.5 Hyperlipidemia, unspecified; I10 Essential (primary) hypertension; E66.9 Obesity, unspecified; J45.909 Unspecified asthma, uncomplicated; F41.9 Anxiety disorder, unspecified; F32.9 Major depressive disorder, single episode, unspecified; Z87.891 Personal history of nicotine dependence
CPT/HCPCS: 36415; 71046; 80053; 83880; 84484; 85025; 93005; 94640; 94760; J2930; J7620

== ENCOUNTER 2018-06-21 15:48 | Emergency (ER) | payer BC ==
--- NOTE | 2018-06-21 16:59 | RAD ---
CHEST ONE VIEW: 06/21/18 HISTORY: Cough and congestion. COMPARISON: 06/12/18 FINDINGS: Cardiac silhouette and pulmonary vasculature are unremarkable. Mediastinum is midline. No confluent a ir space consolidation or evidence of pneumothorax. IMPRESSION: Atherosclerosis. No active cardiopulmonary abnormalities are demonstrated. POS: [facility]
== END 2018-06-21 17:32 | disposition home or self-care (01) ==
LOC: ERS 15:48
DX: J20.9 Acute bronchitis, unspecified (principal); K21.9 Gastro-esophageal reflux disease without esophagitis; E78.5 Hyperlipidemia, unspecified; I10 Essential (primary) hypertension; J44.9 Chronic obstructive pulmonary disease, unspecified; E66.9 Obesity, unspecified; F41.9 Anxiety disorder, unspecified; F32.9 Major depressive disorder, single episode, unspecified; Z87.891 Personal history of nicotine dependence; Z79.899 Other long term (current) drug therapy; Z79.51 Long term (current) use of inhaled steroids
CPT/HCPCS: 71045

== ENCOUNTER 2018-10-14 09:34 | Emergency (ER) | payer BC, MEDICAID ==
[2018-10-14 10:22] LABS: #Basophils 0.1 thou/uL (0.0-0.2); #Eosinphils 0.4 thou/uL (0.0-0.7); #Lymphocytes 2.7 thou/uL (1.20-3.40); #Neutrophils 5.3 thou/uL (1.40-6.50); %Basophils 0.7 % (0.0-1.0); %Eosinophils 4.3 % (0.0-10.0); %Lymphocytes 28.5 % (21.0-51.0); %Monocytes 10.1 % (0.0-10.0); %Neutrophils 56.4 % (42.0-75.0); Hemoglobin 10.6 g/dL (12.0-16.0); Mean Corpuscular HGB CONC 32.6 g/dL (32.0-36.0); Mean Corpuscular Hemoglobin 30.5 pg (27.0-31.0); Mean Corpuscular Volume 93.5 fL (78.0-98.0); Mean Platelet Volume 7.5 fL (7.4-10.4); Platelet Count 278 thou/uL (130-400); RBC Distribution Width 15.4 % (11.5-14.5); Red Blood Cell (RBC) Count 3.47 mill/uL (4.20-5.40); White Blood Cell (WBC) Count 9.5 thou/uL (4.8-10.8)
--- NOTE | 2018-10-14 10:30 | RAD ---
XR Chest 1 View Portable HISTORY: Anxiety COMPARISON: 06/21/2018 FINDINGS: The heart size is normal. The lungs are well expanded without focal areas of consolidation, pneumothorax or pleural effusions. IMPRESSION: No radiographic evidence of acute cardiopulmonary process.
[2018-10-14 10:43] LABS: ALT (SGPT) 11 U/L (8-55); AST (SGOT) 13 U/L (5-34); Albumin 3.5 g/dL (3.4-4.8); Alkaline Phosphatase 103 U/L (40-150); Anion Gap 14 mmol/L (10-20); BUN (Urea Nitrogen) 32 mg/dL (9.8-20.1); Bilirubin, Total 0.3 mg/dL (0.2-1.2); Calc. Creatinine Clearance 0 mL/min (70-130); Calcium 8.6 mg/dL (7.8-10.44); Carbon Dioxide 20 mmol/L (23-31); Chloride 105 mmol/L (98-107); Estimated GFR-MDRD 20; Globulin 3.2 g/dL (2.4-3.5); Glucose 103 mg/dL (80-115); Magnesium 1.4 mg/dL (1.6-2.6); Potassium 4.2 mmol/L (3.5-5.1); Protein, Total 6.7 g/dL (6.0-8.3); Sodium 135 mmol/L (136-145)
[2018-10-14] MEDS ORDERED: HYDROcodone/Acetaminophen 5/325 mg Tablet ONE (11:19)
[2018-10-14 11:55] LABS: Bilirubin Negative (Negative); Blood, Urine Small (Negative); Glucose, Urine (Dipstick) Negative (Negative); Leukocyte Large (Negative); Nitrite Negative (Negative); Protein, Urine (Dipstick) 30 mg/dL (Neg-Trace); Urobilinogen 0.2 mg/dL (0.2-1.0)
[2018-10-14 11:58] LABS: Bacteria/HPF Rare-Few HPF (None Seen); Hyaline Casts/LPF 0-3 HYALINE CAST LPF (0-3 Hyaline); Pathc Cast-AUWi Flag 0.27 (0-2.49); Squamous Epithelial 0-3 HPF (0-3)
[2018-10-14 12:02] LABS: Clarity Turbid (Clear)
--- NOTE | 2018-10-14 12:08 | CT ---
CT head noncontrast HISTORY: Paresthesias. Altered mental status. COMPARISON: 01/10/2017. FINDINGS: There is no evidence of acute intracranial hemorrhage or infarct. Mild diffuse cortical atr ophy and chronic ischemic small vessel disease. There is no mass effect or shift of midline structures. Visualized paranasal sinuses remain well aerated. IMPRESSION: Chronic-type findings are stable. No acute intracranial abnormalities are demonstrated.
[2018-10-14] MEDS ORDERED: cefTRIAXone\\ROCEPHIN 1 GM VIAL ONE (13:12)
== END 2018-10-14 14:24 | disposition home or self-care (01) ==
LOC: ERS 09:34
DX: F43.0 Acute stress reaction (principal); N39.0 Urinary tract infection, site not specified; K21.9 Gastro-esophageal reflux disease without esophagitis; E78.5 Hyperlipidemia, unspecified; J44.9 Chronic obstructive pulmonary disease, unspecified; I10 Essential (primary) hypertension; Z87.891 Personal history of nicotine dependence
CPT/HCPCS: 36415; 70450; 71045; 80053; 81003; 81015; 83735; 83880; 84443; 84484; 85025; 96365; J0696

== ENCOUNTER 2019-01-16 12:58 | Inpatient (IN) | payer MEDICARE, MEDICAID ==
[2019-01-16 13:38] LABS: #Basophils 0.1 thou/uL (0.0-0.2); #Eosinphils 0.2 thou/uL (0.0-0.7); #Lymphocytes 1.8 thou/uL (1.20-3.40); #Monocytes 0.6 thou/uL (0.11-0.59); #Neutrophils 3.5 thou/uL (1.40-6.50); %Basophils 0.9 % (0.0-1.0); %Eosinophils 3.6 % (0.0-10.0); %Lymphocytes 28.8 % (21.0-51.0); %Monocytes 10.3 % (0.0-10.0); %Neutrophils 56.5 % (42.0-75.0); Hemoglobin 10.4 g/dL (12.0-16.0); Mean Corpuscular HGB CONC 32.5 g/dL (32.0-36.0); Mean Corpuscular Hemoglobin 30.1 pg (27.0-31.0); Mean Corpuscular Volume 92.6 fL (78.0-98.0); Mean Platelet Volume 8.6 fL (7.4-10.4); Platelet Count 159 thou/uL (130-400); RBC Distribution Width 13.4 % (11.5-14.5); Red Blood Cell (RBC) Count 3.44 mill/uL (4.20-5.40); White Blood Cell (WBC) Count 6.3 thou/uL (4.8-10.8)
[2019-01-16] MEDS ORDERED: Naloxone HCl 0.4 mg/ml Vial ONE (13:39)
[2019-01-16] MEDS ORDERED: Multivitamins, Adult 10 ML, Thiamine HCl 100 MG, Folic Acid 1 MG in Dextrose 5 %-0.45 %... IV SCH (14:00)
[2019-01-16 14:17] LABS: ALT (SGPT) 10 U/L (8-55); AST (SGOT) 11 U/L (5-34); Acetaminophen Less than 6.0 mcg/mL (10.0-30.0); Albumin 3.1 g/dL (3.4-4.8); Alcohol Less than 10 mg/dL (Less than 10); Alkaline Phosphatase 98 U/L (40-110); Anion Gap 12 mmol/L (10-20); BUN (Urea Nitrogen) 34 mg/dL (9.8-20.1); Bilirubin, Total 0.4 mg/dL (0.2-1.2); CK (CPK) 21 U/L (29-168); Calc. Creatinine Clearance 0 mL/min (70-130); Carbon Dioxide 21 mmol/L (23-31); Chloride 109 mmol/L (98-107); Estimated GFR-MDRD 20; Globulin 2.6 g/dL (2.4-3.5); Glucose 216 mg/dL (80-115); Lipase 45 U/L (8-78); Potassium 3.6 mmol/L (3.5-5.1); Protein, Total 5.7 g/dL (6.0-8.3); Salicylate Less than 8.0 mg/dL (15.0-30.0); Sodium 138 mmol/L (136-145)
--- NOTE | 2019-01-16 14:19 | CT ---
CT Brain WO Con: 01/16/2019 1:47 PM CLINICAL HISTORY: Altered mental status. COMPARISON: 10/14/2018 FINDINGS: Hemorrhage: No acute intracranial hemorrhage. Ventricular system: Stable in size and configuration, without ventriculomegaly. Cerebral parenchyma: Multifocal deep white matter hypoattenuation is demonstrated, progressive from p rior exam. Midline shift: None of significance. Mass: No mass effect. Calvarium: Normal. Visualized Paranasal sinuses: Clear. IMPRESSION: Progressive multifocal white matter hypoattenuation favoring interval development of deep white matte r lacunar infarctions. Consider follow-up with brain MRI, as necessary.
--- NOTE | 2019-01-16 14:24 | RAD ---
Exam: Chest one view HISTORY:Altered mental status Comparison: None FINDINGS: Lungs: No masses or consolidation. Cardiac silhouette: Normal size. There is vascular calcification. Pulmonary vessels: Normal Pleural Spaces: Clear Pneumothorax: None Osseous abnormalities: None of acuity. IMPRESSION: No focal consolidation.
[2019-01-16 16:53] LABS: Bacteria/HPF 4+ HPF (None Seen); Bilirubin Negative (Negative); Blood, Urine 1+ (Negative); Clarity Extra Turbid (Clear); Glucose, Urine (Dipstick) Normal (Negative); Leukocyte 500 Leu/uL (Negative); Nitrite 2+ (Negative); Protein, Urine (Dipstick) 50 mg/dL (Neg-Trace); Squamous Epithelial 0-3 HPF (0-3); Urobilinogen Normal mg/dL (Less than 2); WBC/HPF Greater than 50 HPF (0-3)
[2019-01-16 16:58] LABS: Amphetamine Detected (NotDetected); Barbiturates Screen Not Detected (NotDetected); Benzodiazepine Screen Detected (NotDetected); Cocaine Metabolite Screen Not Detected (NotDetected); Medtox Reader # READER 1; Methadone Not Detected (NotDetected); Methamphetamine Detected (NotDetected); Opiate Screen Detected (NotDetected); Oxycodone Screen Not Detected (NotDetected); Phencyclidine (PCP) Not Detected (NotDetected); THC/Cannabinoid Screen Not Detected (NotDetected); Tricyclic Screen Not Detected (NotDetected)
[2019-01-16 16:59] LABS: Medtox Control Line Valid? VALID (VALID)
[2019-01-16 17:23] LABS: Troponin I Less than 0.010 ng/mL (< 0.028)
[2019-01-16 19:24] VITALS: BMI 27.0
[2019-01-16] MEDS: cefTRIAXone\\ROCEPHIN 1 GM in Sodium Chloride 0.9% 100 ML IVPB SCH (19:31)
--- NOTE | 2019-01-16 19:56 | ULT ---
Ultrasound Doppler duplex carotid: DATE: 01/16/2019 HISTORY: 63 year old female with syncope and altered mental status TECHNIQUE: Grayscale, color-flow, and spectral analysis, of major arteries of neck. FINDINGS: Right common carotid artery proximal to midportion has long segment of what appears to be calcified p laque causing strongly acoustic shadowing which completely obscures the lumen. There is multifocal calcified and noncalcified atherosclerotic plaque at the right carotid bulb, whic h extends more distally into the proximal right internal carotid artery and right external carotid artery. The highest peak systolic velocity obtained in the right internal carotid artery is 85 cm/s. However, slightly distal to this, there is very weak Doppler signal, and therefore high-grade stenosis cannot be excluded. Right vertebral artery flow not identified. Moderate calcified and noncalcified atheromatous plaque is also visualized at the left carotid bulb, extending into the left internal and external carotid arteries. Highest peak systolic velocity in left internal carotid artery is 80 cm/s. Left vertebral artery flow is antegrade. IMPRESSION: 1.) Atherosclerotic disease at bilateral internal carotid arteries and right external carotid artery. 2) very weak Doppler signal in right internal carotid artery. 3) right vertebral artery flow not identified. 4) atheromatous plaque completely obscures the lumen of a long segment of right common carotid artery . 5) CT angiogram of neck (and head if clinically indicated) with contrast may be useful (unless IV con trast is contraindicated)
[2019-01-16 20:07] LABS: Troponin I 0.012 ng/mL (< 0.028)
[2019-01-16] MEDS: Oxybutynin 5 MG TAB PO SCH (20:55)
[2019-01-16] MEDS ORDERED: Atorvastatin Calcium 40 MG TAB PO SCH (21:00)
--- NOTE | 2019-01-16 23:43 | HP ---
CHIEF COMPLAINT: Syncope. HISTORY OF PRESENT ILLNESS: The patient is a 63-year-old female with a history of substance abuse, who presents to the hospital with syncopal episode. Very difficult to obtain a history since the patient could not really tell me much and most of the history was obtained by the ER. We did try to call the , however, unable to leave the message since the voicemail was not set up. The patient apparently presented, stated a little bit that she was sitting outside with her when she kind of felt that she wanted to have an alcoholic beverage. She took two sips of some wine and then the next thing she knew she was in the hospital. Apparently, she had a syncopal episode at home and her called EMS, who brought her to the hospital. The patient states that she has been in rehab for detox for Xanax and since then she has been off Xanax. She is currently on Librium and continues to drink alcohol on a regular basis while even she is on the Librium. She states that she has been very compliant with her blood pressure medications. However, at times, she states that she forgets to take them. PAST MEDICAL HISTORY: As of the following; 1. She has had GERD. 2. Questionable ulcerative colitis. 3. Hyperlipidemia. 4. Hypertension. 5. COPD. PAST SURGICAL HISTORY: She has had a cholecystectomy. She has had a hysterectomy. She has had orthopedic surgeries including the right knee, spinal surgery, tonsillectomy. She also has had a cardiac cath. Again, all this information is obtained from records. SOCIAL HISTORY: She currently continues to drink socially. She quit smoking about 10 years ago, however, unclear. She states that she still smokes a few cigarettes here and there. She lives with her . ALLERGIES: SHE IS ALLERGIC TO BACTRIM, CLINDAMYCIN, METFORMIN, NAPROXEN, AND TRAMADOL. MEDICATIONS: She is on: 1. Hydroxyzine 50 mg q.6 hours p.r.n. 2. Escitalopram 20 mg daily. 3. Metoprolol 50 mg daily. 4. [place] 1-2 tabs q.6 hours p.r.n. 5. Losartan 25 mg daily. 6. Singulair one tab p.o. daily. PHYSICAL EXAMINATION: VITAL SIGNS: Temperature of 98.8, 99% on room air, respiration 16, pulse 79, blood pressure 128/100. GENERAL: She is awake, alert, and oriented x3. Does not appear in distress. HEENT: Normocephalic, atraumatic. No lymphadenopathy noted. Pupils are equal and reactive to light. CV: S1, S2 present. She does have a small systolic murmur. LUNGS: Clear to auscultation. No rhonchi or wheezes noted. ABDOMEN: Soft, nontender. Bowel sounds are present x2. EXTREMITIES: No edema. Pedal pulses are present x2. NEUROVASCULAR: No focal deficits noted. SKIN: She does have excoriations all over her face, her upper back, her abdomen area, and her extremities. LABORATORY DATA: As of the following; WBCs of 6.3, hemoglobin of 10.4, hematocrit of , platelets of 159. Chemistry; sodium of 138, potassium 3.6, BUN of 34, creatinine of 2.39. Troponin x2 were negative. Her urine did show some leukocyte esterase. She did have a CT brain, which indicated progressive multifocal white matter hypoattenuation favoring possible deep matter lacunar infarct. She also had a chest x-ray, which indicated was normal. ASSESSMENT AND PLAN: The patient is a 63-year-old female, who presents to the hospital with syncope. 1. Syncope. We will check orthostatics. We will get an echocardiogram and continue to monitor. We will also admit her to tele. She could have had a cardiac event versus this could be secondary to medications since she has been drinking and also using her other medications. Her UDS actually did come back positive for amphetamines and methamphetamines and also benzos, but she states that she is on Librium. 2. Lacunar infarct. CT showed that she does have strokes. We will get an MRI brain and also carotid and echocardiogram. We will also get Neurology consult. 3. Alcohol abuse. Again, she states that she drinks occasionally less than what she used to drink. I will check vitamin B12. She is already getting a banana bag. We will put on thiamine and folic acid. We will also put her on CIWA protocol in case if she starts withdrawing. 4. Deep venous thrombosis prophylaxis. We will put patient on SCDs. 5. Questionable urinary tract infection, I am not sure. I will put her on some ceftriaxone for now and then stop if her culture comes back negative. 6. Acute on chronic kidney injury. She has chronic kidney disease stage 3. We will continue to monitor, hydrate her gently and kind of go from there. Job ID: [id number]
[2019-01-17] MEDS: Lorazepam 2 MG/ML VIAL SLOW IVP PRN ×3 (03:11→14:47)
[2019-01-17] MEDS ORDERED: Acetaminophen 325 MG TAB PO PRN (05:40)
[2019-01-17 05:42] LABS: Cardiac Risk 2.6 (Less than 4.5)
[2019-01-17] MEDS ORDERED: Prevnar 13-Val Conj/PF 0.5 ML SYRINGE IM ONE (09:00)
[2019-01-17] MEDS: Folic Acid 1 MG TAB PO SCH (09:54)
[2019-01-17] MEDS: Thiamine 100 MG TAB PO SCH (09:54)
[2019-01-17] MEDS: Aspirin 81 mg Enteric Coated Tablet PO SCH (09:54)
[2019-01-17] MEDS: Oxybutynin 5 MG TAB PO SCH ×2 (09:54→20:36)
--- NOTE | 2019-01-17 09:54 | MRI ---
EXAM: MRI Brain WO Con PROVIDED CLINICAL HISTORY: Syncope stroke COMPARISON: CT head on 01/16/2019 FINDINGS: There is significant motion artifact on all pulse sequences which does degrade image quality. However , there are multiple punctate foci of restricted diffusion seen within a more linear fashion within the right cerebral hemisphere involving primarily the right frontal and parietal lobes with punctate foci of restricted diffusion in the the right temporal lobe and in the right parietal-occipital lobe. These areas of infarction are primarily in a watershed distribution. There is increased FLAIR and T2-weighted signal intensity seen in the periventricular white matter wh ich is nonspecific but likely reflective of chronic small vessel ischemic changes. There is mild cerebral volume loss. Ventricular system is normal in size, shape, and position. Flow voids are difficult to evaluate due to significant patient motion. [place] lenses are not visualized. The visualized skull base has a grossly normal MRI appearance. IMPRESSION: Multifocal punctate acute infarctions in a watershed distribution involving the right cerebral hemisp here as described above.
[2019-01-17] MEDS: Enoxaparin Sodium 30 MG/0.3 ML SYRINGE SC SCH (09:55)
--- NOTE | 2019-01-17 14:11 | PDOC.HOSPP ---
- Subjective Encounter Date: 01/17/19 Encounter Time: 10:30 Subjective: pt up in bed no complains - Objective Vital Signs & Weight: Vital Signs (12 hours) Temp Pulse Pulse Pulse Resp BP BP 01/17/19 12:00 144/73 H 01/17/19 11:40 99.5 F 76 16 01/17/19 10:17 68 65 136/63 01/17/19 10:13 68 65 136/63 01/17/19 08:00 150/70 H 01/17/19 07:50 99.0 F 79 15 01/17/19 05:22 100.2 F H 76 20 01/17/19 02:54 100.1 F H 78 20 BP BP BP BP Pulse Ox 01/17/19 12:00 01/17/19 11:40 144/73 H 97 01/17/19 10:17 160/85 H 01/17/19 10:13 160/85 H 01/17/19 08:00 97 01/17/19 07:50 150/70 H 97 01/17/19 05:22 131/56 L 95 01/17/19 02:54 172/87 H 171/78 H 166/72 H 96 Weight Admit Weight 157 lb 9 oz Weight 157 lb 9 oz I&O: 01/16/19 01/17/19 01/18/19 06:59 06:59 06:59 Output Total 450 Balance -450 Result Diagrams: 01/16/19 13:29 01/16/19 13:29 Hospitalist ROS - Review of Systems Respiratory: denies: cough, dry, shortness of breath, hemoptysis, SOB with excertion, pleuritic pain, sputum, wheezing, other Cardiovascular: denies: chest pain, palpitations, orthopnea, paroxysmal noc. dyspnea, edema, light headedness, other Gastrointestinal: denies: nausea, vomiting, abdominal pain, diarrhea, constipation, melena, hematochezia, other Genitourinary: denies: dysuria, frequency, incontinence, hematuria, retention, other - Medication Medications: Active Medications Generic Name Dose Route Start Last Admin Trade Name Freq PRN Reason Stop Dose Admin Acetaminophen 650 mg 01/17/19 05:40 01/17/19 05:50 Tylenol PO 650 mg Q6H PRN Administration Headache/Fever or Pain Aspirin 81 mg 01/17/19 09:00 10/01/19 09:54 Ecotrin PO 81 mg DAILY GUILLE Administration Chlordiazepoxide HCl 10 mg 01/16/19 21:00 01/17/19 09:54 Librium PO 10 mg TID GUILLE Administration Enoxaparin Sodium 30 mg 01/17/19 09:00 01/17/19 09:55 Lovenox SC 30 mg 0900 GUILLE Administration Folic Acid 1 mg 01/17/19 09:00 01/17/19 09:54 Folvite PO 1 mg DAILY GUILLE Administration Ceftriaxone Sodium 1 gm/ 100 mls @ 200 mls/hr 01/16/19 18:00 01/16/19 19:31 Sodium Chloride IVPB 100 mls Q24HR GUILLE Administration Lorazepam 1 mg 01/16/19 17:32 01/17/19 08:25 Ativan SLOW IVP 1 mg Q6H PRN Administration Alcohol Withdrawal Oxybutynin Chloride 10 mg 01/16/19 21:00 01/17/19 09:54 Ditropan PO 10 mg BID GUILLE Administration Sodium Chloride 10 ml 01/16/19 17:28 01/16/19 20:55 Flush - Normal Saline IVF 10 ml PRN PRN Administration Saline Flush Thiamine HCl 100 mg 01/17/19 09:00 01/17/19 09:54 Thiamine PO 100 mg DAILY GUILLE Administration - Exam Heart: negative: RRR, no murmur, no gallops, no rubs, normal peripheral pulses, irregular, diminshed peripheral pulses, murmur present, II/IV, III/IV Respiratory: negative: CTAB, no wheezes, no rales, no ronchi, normal chest expansion, no tachypnea, normal percussion, rales, rhonchi, tachypneic, wheezes Gastrointestinal: negative: soft, non-tender, non-distended, normal bowel sounds , no palpable masses, no hepatomegaly, no splenomegaly, no bruit, no guarding, no rigidity, tender to palpation, distended, diminished bowl sounds, voluntary guarding Hosp A/P (1) Syncope and collapse Code(s): R55 - SYNCOPE AND COLLAPSE Status: Acute (2) Stroke Code(s): I63.9 - CEREBRAL INFARCTION, UNSPECIFIED Status: Acute (3) DM II (diabetes mellitus, type II), controlled Code(s): E11.9 - TYPE 2 DIABETES MELLITUS WITHOUT COMPLICATIONS Status: Acute Qualifiers: Diabetes mellitus complication status: with kidney complications Diabetes mellitus complication detail: with chronic kidney disease Chronic kidney disease stage: stage 3 (moderate) (4) CKD (chronic kidney disease) stage 3, GFR 30-59 ml/min Status: Chronic (5) Dyslipidemia Code(s): E78.5 - HYPERLIPIDEMIA, UNSPECIFIED Status: Chronic - Plan pt's ct indicated stroke will get mri brain and her carotid doppler indicated significant plaque burden. Unable to to a ct due to her ckd will get mra. she is on statin and asa.
--- NOTE | 2019-01-17 17:04 | MRI ---
Magnetic resonance angiogram MRA neck noncontrast: DATE: 01/17/2019 HISTORY: 63-year-old female with abnormal carotid Doppler ultrasound study and acute cerebral infarctions. TECHNIQUE: 2-D [id number] through neck. 3-D [id number] through neck. Source images and 3-D MIP reconstructions obtained. Because of acute kidney injury and a GFR of 20, no gadolinium based IV contrast agent was administere d. FINDINGS: Unfortunately, all of the images are degraded by patient motion. The patient was reportedly medicated . The origins of the common carotid arteries and vertebral arteries are not included in the [place] of view. There was weak signal in the right internal carotid artery on the recent Doppler study. There is flow demonstrated in the bilateral internal carotid arteries without evidence of severe stenosis. It is difficult to rule out mild or moderate stenosis. The same is true for the bilateral common carotid ar teries and the bilateral cervical vertebral arteries. The left vertebral artery is slightly dominant. IMPRESSION: 1. Limited study degraded by patient motion and lack of IV gadolinium based contrast agent. 2. The bilateral common carotid arteries, internal carotid arteries, and vertebral arteries, are not occluded. There is probably no severe stenosis, although that is not absolutely certain.
[2019-01-17] MEDS: cefTRIAXone\\ROCEPHIN 1 GM in Sodium Chloride 0.9% 100 ML IVPB SCH (18:17)
[2019-01-17] MEDS: Atorvastatin Calcium 40 MG TAB PO SCH (20:36)
--- NOTE | 2019-01-17 23:18 | CON ---
DATE OF CONSULTATION: 01/17/2019 CONSULTING PHYSICIAN: Hospitalist Service. IMPRESSION: 1. Syncopal episode resulting in a secondary watershed infarct on the right. 2. Carotid disease. 3. Unknown etiology for the patient's hypotension. PLAN: 1. I suggest cardiology evaluation by Dr. Camp, who is her ongoing physician. 2. Review MRA of the carotids. HISTORY OF PRESENT ILLNESS: Ms. Logan is a 63-year-old woman with a past history of alcohol use and hypertension. She reportedly was sitting on the porch when she suddenly lost consciousness. She does not recall any prodromal symptoms. She awoke in the ambulance. She was told that her blood pressure was around 60/40. Reportedly, her pulse was weak. She came into the hospital for further evaluation. Her vital signs stabilized. She had a carotid ultrasound, which showed heavy amount of calcium and indeterminate amount of stenosis. Her CT of the brain showed some chronic small-vessel changes with an area of old subcortical infarction in the right mid parietal region. There is some cerebral atrophy and possibly some chronic subdural fluid present on the left, more so than the right. Her lab work was positive for urinary tract infection. Her tox screen was positive for methamphetamine, amphetamine, and opiates. She denies any use of the amphetamine products, but is on hydrocodone for pain. She had an MRI of the brain done earlier today, which showed an area of acute ischemia involving the right watershed distribution. Her MRA of carotids are pending. PAST MEDICAL HISTORY: As listed above. ALLERGIES: NUMEROUS PER CHART. SOCIAL HISTORY: As noted above. FAMILY HISTORY: Noncontributory. REVIEW OF SYSTEMS: Only positive for some intermittent left hand tingling. A 10-system review of systems is otherwise negative. PHYSICAL EXAMINATION: GENERAL: She is a well-nourished, but somewhat disheveled appearing elderly woman, sitting in bed, in no distress. VITAL SIGNS: Have been stable. She has had a temperature of 100.2 maximum. HEENT: Pupils are equal and reactive. Conjunctivae clear. Oropharynx clear. Cranium, normocephalic and atraumatic. NECK: Supple. No lymphadenopathy. EXTREMITIES: No cyanosis or edema. NEUROLOGIC: She is alert and cooperative. Her speech is fluent and clear. Cranial nerves were intact. Motor exam showed good strength bilaterally. There was no fix or drift. Sensation was intact to light touch. No abnormal movements were seen. Gait was not tested. IMAGING STUDIES: EEG shows normal background without any epileptiform features. SUMMARY: This is a 63-year-old woman, who had a syncopal episode with a drop in blood pressure to 60/40. This resulted in a secondary watershed ischemic event. The etiology of her cardiovascular changes are uncertain. I asked to have her follow up with Cardiology. Job ID: [id number]
[2019-01-18] MEDS ORDERED: Acetaminophen 1,000 MG in Premix Bag 1 BAG IVPB SCH (03:00)
[2019-01-18] MEDS: Enoxaparin Sodium 30 MG/0.3 ML SYRINGE SC SCH (09:11)
[2019-01-18] MEDS: Folic Acid 1 MG TAB PO SCH (09:12)
[2019-01-18] MEDS: Oxybutynin 5 MG TAB PO SCH ×2 (09:12→20:30)
[2019-01-18] MEDS: Aspirin 81 mg Enteric Coated Tablet PO SCH (09:12)
[2019-01-18] MEDS: Thiamine 100 MG TAB PO SCH (09:12)
--- NOTE | 2019-01-18 09:38 | EEG ---
Referring Physician: Milton ELENA EEG # [id number] TEST TYPE: ROUTINE PORTABLE INPATIENT REPORT: AN EEG USING THE INTERNATIONAL TEN-TWENTY SYSTEM OF ELECTRODE PLACEMENT WAS PERFORMED. The waking background is a 10 hertz alpha frequency. The patient became drowsy , but not sleep was seen. Hyperventilation and photic stimulation were unremarkable. No epileptiform features were present. IMPRESSION: THIS IS A NORMAL AWAKE EEG. Relations Mgr: JENNIFER Call Center Operator: [email or web address] COLEMAN
[2019-01-18] MEDS ORDERED: FLU VACC TS2019-20(65YR UP)/PF 180 MCG/0.5 ML SYRINGE IM ONE (10:15)
[2019-01-18] MEDS ORDERED: Lisinopril 20 MG TAB PO SCH (10:26)
[2019-01-18 12:32] LABS: Anion Gap 11 mmol/L (10-20); BUN (Urea Nitrogen) 26 mg/dL (9.8-20.1); Calc. Creatinine Clearance 37 mL/min (70-130); Calcium 8.9 mg/dL (7.8-10.44); Carbon Dioxide 26 mmol/L (23-31); Chloride 104 mmol/L (98-107); Estimated GFR-MDRD 30; Glucose 110 mg/dL (80-115); Potassium 3.7 mmol/L (3.5-5.1); Sodium 137 mmol/L (136-145)
[2019-01-18] MEDS: Hydrocortisone 1% Cream 30 GM TUBE TOP SCH ×2 (15:22→17:46)
--- NOTE | 2019-01-18 15:38 | PDOC.HOSPP ---
- Subjective Encounter Date: 01/18/19 Encounter Time: 10:30 Subjective: pt up in bed no complains - Objective Vital Signs & Weight: Vital Signs (12 hours) Temp Pulse Pulse Pulse Resp BP BP 01/18/19 12:00 140/66 01/18/19 11:25 98.6 F 76 20 01/18/19 11:02 75 75 140/66 01/18/19 08:00 171/79 H 01/18/19 07:30 98.9 F 89 20 01/18/19 03:57 99.2 F 74 16 BP BP BP BP Pulse Ox 01/18/19 12:00 01/18/19 11:25 140/66 97 01/18/19 11:02 170/78 H 01/18/19 08:00 94 L 01/18/19 07:30 171/79 H 94 L 01/18/19 03:57 159/74 H 98 Weight Admit Weight 157 lb 9 oz Weight 157 lb 9 oz I&O: 01/17/19 01/18/19 01/19/19 06:59 06:59 06:59 Output Total 450 Balance -450 Result Diagrams: 01/16/19 13:29 01/18/19 11:32 Hospitalist ROS - Review of Systems Respiratory: denies: cough, dry, shortness of breath, hemoptysis, SOB with excertion, pleuritic pain, sputum, wheezing, other Cardiovascular: denies: chest pain, palpitations, orthopnea, paroxysmal noc. dyspnea, edema, light headedness, other Gastrointestinal: denies: nausea, vomiting, abdominal pain, diarrhea, constipation, melena, hematochezia, other - Medication Medications: Active Medications Generic Name Dose Route Start Last Admin Trade Name Freq PRN Reason Stop Dose Admin Acetaminophen 650 mg 01/17/19 05:40 01/17/19 05:50 Tylenol PO 650 mg Q6H PRN Administration Headache/Fever or Pain Aspirin 81 mg 01/17/19 09:00 01/18/19 09:12 Ecotrin PO 81 mg DAILY GUILLE Administration Atorvastatin Calcium 80 mg 01/17/19 21:00 01/17/19 20:36 Lipitor PO 80 mg HS GUILLE Administration Chlordiazepoxide HCl 10 mg 01/16/19 21:00 01/18/19 15:21 Librium PO 10 mg TID GUILLE Administration Enoxaparin Sodium 30 mg 01/17/19 09:00 01/18/19 09:11 Lovenox SC 30 mg 0900 GUILLE Administration Folic Acid 1 mg 01/17/19 09:00 01/18/19 09:12 Folvite PO 1 mg DAILY GUILLE Administration Hydrocortisone/Aloe 0 gm 01/18/19 13:00 01/18/19 15:22 Hydrocortisone 1% Cream TOP 1 applic QID GUILLE Administration Ceftriaxone Sodium 1 gm/ 100 mls @ 200 mls/hr 01/16/19 18:00 01/17/19 18:17 Sodium Chloride IVPB 100 mls Q24HR GUILLE Administration Lorazepam 1 mg 01/16/19 17:32 01/17/19 14:47 Ativan SLOW IVP 1 mg Q6H PRN Administration Alcohol Withdrawal Metoprolol Succinate 50 mg 01/18/19 09:00 01/18/19 10:58 Toprol Xl PO 50 mg DAILY GUILLE Administration Oxybutynin Chloride 10 mg 01/16/19 21:00 01/18/19 09:12 Ditropan PO 10 mg BID GUILLE Administration Sodium Chloride 10 ml 01/16/19 17:28 01/17/19 20:36 Flush - Normal Saline IVF 10 ml PRN PRN Administration Saline Flush Thiamine HCl 100 mg 01/17/19 09:00 01/18/19 09:12 Thiamine PO 100 mg DAILY GUILLE Administration - Exam Neck: negative: supple, symmetric, no JVD, no thyromegaly, no lymphadenopathy, no carotid bruit, JVD Heart: negative: RRR, no murmur, no gallops, no rubs, normal peripheral pulses, irregular, diminshed peripheral pulses, murmur present, II/IV, III/IV Respiratory: negative: CTAB, no wheezes, no rales, no ronchi, normal chest expansion, no tachypnea, normal percussion, rales, rhonchi, tachypneic, wheezes Hosp A/P (1) Syncope and collapse Code(s): R55 - SYNCOPE AND COLLAPSE Status: Acute (2) Stroke Code(s): I63.9 - CEREBRAL INFARCTION, UNSPECIFIED Status: Acute (3) DM II (diabetes mellitus, type II), controlled Code(s): E11.9 - TYPE 2 DIABETES MELLITUS WITHOUT COMPLICATIONS Status: Acute Qualifiers: Diabetes mellitus complication status: with kidney complications Diabetes mellitus complication detail: with chronic kidney disease Chronic kidney disease stage: stage 3 (moderate) (4) CKD (chronic kidney disease) stage 3, GFR 30-59 ml/min Status: Chronic (5) Dyslipidemia Code(s): E78.5 - HYPERLIPIDEMIA, UNSPECIFIED Status: Chronic - Plan pt's ct indicated stroke will get mri brain and her carotid doppler indicated significant plaque burden. Unable to to a ct due to her ckd will get mra. she is on statin and asa. 01/18 MRA not helpful. will get CV surgery for guidance. will hydrate pt and get CTA neck and head for eval. I will also get cardio due to her syncopal episode.
[2019-01-18] MEDS ORDERED: guaiFENesin ER 600 MG TAB PO PRN (17:08)
[2019-01-18] MEDS: Sodium Chloride 0.9% 1,000 ML IV SCH (17:45)
[2019-01-18] MEDS: cefTRIAXone\\ROCEPHIN 1 GM in Sodium Chloride 0.9% 100 ML IVPB SCH (17:45)
[2019-01-18] MEDS ORDERED: Acetaminophen/Codeine 30-300mg Tablet PO PRN (18:46)
[2019-01-18] MEDS: Atorvastatin Calcium 40 MG TAB PO SCH (20:30)
[2019-01-18] MEDS ORDERED: HYDROcodone/Acetaminophen 5/325 mg Tablet PO SCH (23:45)
--- NOTE | 2019-01-19 00:26 | CON ---
DATE OF CONSULTATION: 01/18/2019 HISTORY OF PRESENT ILLNESS: Ms. Logan is a 63-year-old woman, who is unsure as to the events surrounding her admission. She has been told she had a syncopal spell and was brought to the hospital. Her only recollection is coming and being in the emergency department. She never had any loss of function of her arms or legs. She had no loss of urinary or bowel function. She has no previous history of stroke. She is hypertensive and states that she takes her medicine as directed at home. Of note, she had methamphetamines and amphetamines noted in her urine at admission. She has recently been in rehab for Xanax abuse. PAST MEDICAL HISTORY: 1. Hypertension. 2. Multisubstance abuse. 3. GERD. 4. Dyslipidemia. 5. COPD. PAST SURGICAL HISTORY: 1. Cholecystectomy. 2. Hysterectomy. 3. Right knee surgery. 4. Spine surgery. 5. Tonsillectomy. SOCIAL HISTORY: She drinks alcohol socially. She quit smoking about 10 years ago. ALLERGIES: BACTRIM, CLINDAMYCIN, METFORMIN, NAPROXEN, AND TRAMADOL. MEDICATIONS: Noted. PHYSICAL EXAMINATION: GENERAL: This is a well-developed, well-nourished woman, resting comfortably in bed. VITAL SIGNS: Her height is 5 feet 4 inches. Weight is 157 pounds. Temperature is 97.6. Pulse is 69 and regular. Blood pressure is 160/75. HEENT: Sclerae nonicteric. Pupils are equal and round bilaterally. NECK: Supple. There is no carotid bruit. CHEST: Clear bilaterally. HEART: Rhythm is regular. ABDOMEN: Soft and nontender. EXTREMITIES: No edema. NEUROLOGIC: Symmetric and strong bilaterally with no deficits grossly. IMAGING DATA: Carotid ultrasound has been performed showing heavy calcification of the right carotid system. 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 MRA of the neck was not useful due to the patient's motion artifact. ASSESSMENT AND PLAN: I am unsure if this is carotid related or not. I will order a CTA of the carotids and see what that looks like tomorrow. She has been started on an aspirin and that is probably all I would start her on from an anti-platelet standpoint at this point due to her substance abuse and probable fall risk. Job ID: [id number]
[2019-01-19] MEDS: Hydrocortisone 1% Cream 30 GM TUBE TOP SCH ×5 (02:01→20:11)
--- NOTE | 2019-01-19 09:30 | CON ---
DATE OF CONSULTATION: 01/18/2019 REASON FOR CONSULTATION: Chronic kidney disease with acute kidney injury. REASON FOR ADMISSION: Syncope. HISTORY OF PRESENT ILLNESS: A 63-year-old female with history of GERD, CKD, hyperlipidemia, came to the hospital with syncopal attack and evaluated. She was also found to have acute kidney injury. She said she was "dehydrated." She was not feeling well. She is also having some alcohol issues and is being treated. She does have chronic pain also. The patient does follow because of the renal injury. PAST MEDICAL HISTORY: Positive for GERD, ulcerative colitis, hyperlipidemia, hypertension, and COPD. PAST SURGICAL HISTORY: Cholecystectomy, hysterectomy, orthopedic surgery, and tonsillectomy. HOME MEDICATIONS: Reviewed. ALLERGIES: TO BACTRIM, CLINDAMYCIN, METFORMIN, AND NAPROXEN. SOCIAL HISTORY: Currently continues drinking socially. Quit smoking. FAMILY HISTORY: No history of kidney disease. REVIEW OF SYSTEMS: CONSTITUTIONAL: Negative for weight loss or gain, ability to conduct usual activities. SKIN: Negative for rash, itching. EYES: Negative for double vision, pain. ENT/MOUTH: Negative for nose bleeding, neck stiffness, pain, tenderness. CARDIOVASCULAR: Negative for palpitations, dyspnea on exertion, orthopnea. RESPIRATORY: Negative for shortness of breath, wheezing, cough, hemoptysis, fever or night sweats. GASTROINTESTINAL: Negative for poor appetite, abdominal pain, heartburn, nausea, vomiting, constipation, or diarrhea. GENITOURINARY: Negative for urgency, frequency, dysuria, nocturia. MUSCULOSKELETAL: Negative for pain, swelling. NEUROLOGIC/PSYCHIATRIC: Negative for anxiety, depression. ALLERGY/IMMUNOLOGIC: Negative for skin rash, bleeding tendency. PHYSICAL EXAMINATION: General: Review a thin built female, in no apparent distress. VIAL SIGNS: Temperature 98.7, pulse 73, respirations 14, blood pressure 160/86. HEENT: Atraumatic, normocephalic. Oral mucosa is moist. NECK: Supple. CVS: S1 and S2 heard. Rate and rhythm regular. RESPIRATORY: Clear to auscultation. MUSCULOSKELETAL: No tenderness. No edema. DERMATOLOGIC: No skin rash. NEUROLOGIC: Alert and awake and oriented X3. No focal neurologic deficits. Moving all the extremities. PSYCHIATRIC: Mood and affect normal. LABORATORY DATA: Hemoglobin 10.4, potassium 3.7, creatinine is 1.6 from 2.3, GFR is 30 from 20. ASSESSMENT AND PLAN: 1. Acute kidney injury on chronic kidney disease with improvement, most likely from volume depletion. Continue hydration with close monitor of cardiorespiratory status. Avoid nephrotoxins and chronic anemia. 2. Avoid contrast if GFR remains less than 30. Renal risk of contrast is explained to the patient, but the risk versus benefit needs to be evaluated. 3. Edema, controlled. 4. Hypertension. 5. Anemia. 6. Monitor renal function. Continue hydration if GFR more than 30. She will be having lower risk for contrast induced renal injury. The patient understands the risks. We will continue to monitor. Thank you for the consult. Job ID: [id number]
[2019-01-19] MEDS: Escitalopram Oxalate 20 mg Tablet PO SCH (09:36)
[2019-01-19] MEDS: Montelukast Sodium 10 mg Tablet PO SCH (09:36)
[2019-01-19] MEDS: Thiamine 100 MG TAB PO SCH (09:36)
[2019-01-19] MEDS: Amlodipine 10 MG TAB PO SCH (09:37)
[2019-01-19] MEDS: Oxybutynin 5 MG TAB PO SCH ×2 (09:37→20:10)
[2019-01-19] MEDS: Folic Acid 1 MG TAB PO SCH (09:38)
[2019-01-19] MEDS: Sodium Chloride 0.9% 1,000 ML IV SCH ×3 (09:38→20:18)
[2019-01-19] MEDS: Aspirin 81 mg Enteric Coated Tablet PO SCH (09:38)
[2019-01-19] MEDS: Enoxaparin Sodium 30 MG/0.3 ML SYRINGE SC SCH (09:39)
[2019-01-19 09:55] LABS: Anion Gap 10 mmol/L (10-20); BUN (Urea Nitrogen) 26 mg/dL (9.8-20.1); Calc. Creatinine Clearance 36 mL/min (70-130); Calcium 8.1 mg/dL (7.8-10.44); Carbon Dioxide 24 mmol/L (23-31); Chloride 106 mmol/L (98-107); Estimated GFR-MDRD 29; Glucose 156 mg/dL (80-115); Potassium 3.9 mmol/L (3.5-5.1); Sodium 136 mmol/L (136-145)
[2019-01-19] MEDS ORDERED: Lorazepam 2 MG/ML VIAL SLOW IVP SCH (10:00)
--- NOTE | 2019-01-19 15:37 | PRG ---
DATE OF SERVICE: 01/19/2019 SUBJECTIVE: Patient was seen and examined at bedside and overnight events noted. Patient denies any shortness of breath or chest pain or palpitation. No history of nausea or vomiting or diarrhea or fever or chills or cramps. OBJECTIVE: GENERAL: This is a well-built female, in no apparent distress. VITAL SIGNS: Temperature 98.0. Heart rate 71. Respiratory rate 16. Blood pressure 149/71. HEENT: Atraumatic, normocephalic. Oral mucosa is moist NECK: Supple. CARDIOVASCULAR: S1, S2 heard. Rate and rhythm regular. RESPIRATORY: Clear to auscultation. GASTROINTESTINAL: Abdomen is soft. MUSCULOSKELETAL: No tenderness. No edema. DERMATOLOGIC: No skin rash. NEUROLOGIC: Alert and awake and oriented X3. No focal neurologic deficits. Moving all the extremities. PSYCHIATRIC: Mood and affect normal. LABORATORY DATA: Potassium 3.9, BUN is 26, creatinine is 1.75, and GFR of 29. ASSESSMENT AND PLAN: 1. Acute kidney injury on chronic kidney disease, stage 4, stable. The patient remains moderate risk for contrast induced renal injury. 2. Edema. 3. Hypertension. 4. Anemia. 5. Renal function close to baseline, but she remains moderate risk for renal injury. Continue discussion of benefits versus risks of contrast exposure at this point. Job ID: [id number]
[2019-01-19] MEDS ORDERED: HYDROcodone/Acetaminophen 10/325 mg Tablet PO PRN (16:24)
[2019-01-19] MEDS: HYDROcodone/Acetaminophen 10/325 mg Tablet PO PRN (16:58)
[2019-01-19] MEDS: cefTRIAXone\\ROCEPHIN 1 GM in Sodium Chloride 0.9% 100 ML IVPB SCH (17:03)
[2019-01-19] MEDS: Atorvastatin Calcium 40 MG TAB PO SCH (20:10)
[2019-01-20] MEDS ORDERED: Lorazepam 2 MG/ML VIAL SLOW IVP SCH (04:00)
[2019-01-20] MEDS: HYDROcodone/Acetaminophen 10/325 mg Tablet PO PRN ×2 (04:40→14:54)
[2019-01-20] MEDS: Sodium Chloride 0.9% 1,000 ML IV SCH ×3 (04:44→20:23)
[2019-01-20 05:28] LABS: Anion Gap 10 mmol/L (10-20); BUN (Urea Nitrogen) 24 mg/dL (9.8-20.1); Calc. Creatinine Clearance 44 mL/min (70-130); Calcium 8.3 mg/dL (7.8-10.44); Carbon Dioxide 23 mmol/L (23-31); Chloride 106 mmol/L (98-107); Estimated GFR-MDRD 37; Glucose 93 mg/dL (80-115); Potassium 4.1 mmol/L (3.5-5.1); Sodium 135 mmol/L (136-145)
[2019-01-20] MEDS: Hydrocortisone 1% Cream 30 GM TUBE TOP SCH ×4 (07:55→20:22)
[2019-01-20] MEDS: Folic Acid 1 MG TAB PO SCH (07:56)
[2019-01-20] MEDS: Amlodipine 10 MG TAB PO SCH (07:56)
[2019-01-20] MEDS: Montelukast Sodium 10 mg Tablet PO SCH (07:56)
[2019-01-20] MEDS: Thiamine 100 MG TAB PO SCH (07:56)
[2019-01-20] MEDS: Oxybutynin 5 MG TAB PO SCH ×2 (07:56→20:17)
[2019-01-20] MEDS: Aspirin 81 mg Enteric Coated Tablet PO SCH (07:57)
[2019-01-20] MEDS: Enoxaparin Sodium 30 MG/0.3 ML SYRINGE SC SCH (07:57)
[2019-01-20] MEDS: Escitalopram Oxalate 20 mg Tablet PO SCH (07:57)
--- NOTE | 2019-01-20 11:49 | CT ---
CT ANGIOGRAM NECK WITH CONTRAST: DATE: 01/20/2019 HISTORY: 63-year-old female with watershed zone right cerebral recent infarctions. TECHNIQUE: After IV contrast injection, arterial bolus chasing technique scan performed from 3 cm inferior to ca parrish to upper aspect of maxillary sinuses Coronal and sagittal 3-D MIP reconstructions. FINDINGS: Tortuous, retropharyngeal courses of bilateral common carotid arteries and internal carotid arteries. Atherosclerotic calcified plaque involving multiple major arteries, including aortic arch, and origins of innominate, right common carotid, right subclavian, left subclavian, bilateral internal ca rotid, and bilateral vertebral, arteries. Most of the arteries are tortuous. Brachiocephalic: No high-grade stenosis Right subclavian: No high-grade stenosis Left subclavian: Mild stenosis at origin. No high-grade stenosis identified. Right vertebral: Moderate or severe stenosis at origin due to heavily calcified plaque. No other sign ificant stenosis in the rest of the cervical and intracranial portions. Left vertebral: Moderate to severe stenosis at origin due to calcified plaque. Short distance from or igin, another focus of moderate stenosis due to kink from tortuosity. No high-grade stenosis in the rest of cervical and intracranial portions. Left side dominant. Right common carotid: Mild stenosis at origin. A vertically long, 2.5 cm segment of right common rodriguez tid thick calcified atheromatous plaque causes mild stenosis over long segment. No high-grade stenosis. Left common carotid: Mild to moderate stenosis at origin. No high-grade stenosis in rest of the vesse l. Right internal carotid: Moderate calcified plaque proximally, including origin. Mild proximal stenosi s. No significant stenosis in the rest of the vessel. Diffuse calcified plaque throughout carotid siphon. Left internal carotid: Moderate to severe, heavily calcified plaque at proximal left internal carotid . This causes mild, up to 30% stenosis proximally. No significant stenosis in the rest of vessel. Diffuse calcified plaque at carotid siphon. Basilar: Short segment of fenestration proximally. No high-grade stenosis. IMPRESSION: 1) prominent calcified atheromatous plaque involving multiple arteries, especially at origins. 2) tortuosity of arteries. 3) high-grade stenoses at origins of bilateral vertebral arteries. 4) multivessel mild stenoses, including carotid arteries. 5) no high-grade stenosis of common or internal carotid arteries identified.
--- NOTE | 2019-01-20 17:08 | PRG ---
DATE OF SERVICE: 01/20/2019 SUBJECTIVE: Patient was seen and examined at bedside and overnight events noted. Patient denies any shortness of breath or chest pain or palpitation. No history of nausea or vomiting or diarrhea or fever or chills or cramps. OBJECTIVE: GENERAL: This is an elderly female, in no apparent distress. VITAL SIGNS: Temperature 98.0. Heart rate 71. Respiratory rate 16. Blood pressure 141/70. HEENT: Atraumatic, normocephalic. Oral mucosa is moist NECK: Supple. CARDIOVASCULAR: S1, S2 heard. Rate and rhythm regular. RESPIRATORY: Clear to auscultation. GASTROINTESTINAL: Abdomen is soft. MUSCULOSKELETAL: No tenderness. No edema. DERMATOLOGIC: No skin rash. NEUROLOGIC: Alert and awake and oriented X3. No focal neurologic deficits. Moving all the extremities. PSYCHIATRIC: Mood and affect normal. LABORATORY DATA: Potassium is 4.1, BUN is 24, and creatinine is 1.1. ASSESSMENT AND PLAN: 1. Acute kidney injury on chronic kidney disease stage 3. Improvement in creatinine with GFR of 37 today. Risks versus benefit of contrast exposure, especially the risk of renal injury was discussed with the patient and she understands it and she is willing to take the risk and wants to go ahead and do the contrasted CT angiography as she feels like it will improve her quality of life if we can perceive the cause of the stroke and any intervention if possible. We will monitor renal function. Continue IV fluids if tolerated. Avoid nephrotoxins. 2. Edema, controlled. 3. Hypertension. 4. Anemia. Monitor renal function if contrast study is done, and we will follow. Avoid nephrotoxins. Medication list reviewed and acceptable, and we will continue IV fluids if tolerated. Job ID: [id number]
--- NOTE | 2019-01-20 17:21 | PDOC.HOSPP ---
- Subjective Encounter Date: 01/20/19 Encounter Time: 09:00 Subjective: pt up in bed no complains - Objective Vital Signs & Weight: Vital Signs (12 hours) Temp Pulse Resp BP BP Pulse Ox 01/20/19 15:59 98 F 71 16 141/70 H 94 L 01/20/19 15:00 141/70 H 01/20/19 12:13 132/64 01/20/19 11:50 98.1 F 74 16 132/64 96 01/20/19 08:00 98.2 F 82 16 135/61 95 01/20/19 07:56 70 148/69 H Weight Admit Weight 157 lb 9 oz Weight 157 lb 9 oz I&O: 01/19/19 01/20/19 01/21/19 06:59 06:59 06:59 Intake Total 2760 Output Total 200 2150 Balance -200 610 Result Diagrams: 01/16/19 13:29 01/20/19 04:57 Hospitalist ROS - Review of Systems Respiratory: denies: cough, dry, shortness of breath, hemoptysis, SOB with excertion, pleuritic pain, sputum, wheezing, other Cardiovascular: denies: chest pain, palpitations, orthopnea, paroxysmal noc. dyspnea, edema, light headedness, other Gastrointestinal: denies: nausea, vomiting, abdominal pain, diarrhea, constipation, melena, hematochezia, other - Medication Medications: Active Medications Generic Name Dose Route Start Last Admin Trade Name Freq PRN Reason Stop Dose Admin Acetaminophen 650 mg 01/17/19 05:40 01/17/19 05:50 Tylenol PO 650 mg Q6H PRN Administration Headache/Fever or Pain Acetaminophen/Codeine Phosphate 1 tab 01/18/19 18:46 01/18/19 21:20 Tylenol #3 PO 1 tab Q6H PRN Administration Pain 4-6 Hydrocodone Bitart/Acetaminophen 2 tab 01/19/19 16:25 01/20/19 14:54 [place] 10/325 PO 2 tab Q6H PRN Administration Severe Pain (8-10) Amlodipine Besylate 10 mg 01/19/19 09:00 01/20/19 07:56 Norvasc PO 10 mg DAILY GUILLE Administration Aspirin 81 mg 01/17/19 09:00 01/20/19 07:57 Ecotrin PO 81 mg DAILY GUILLE Administration Atorvastatin Calcium 80 mg 01/17/19 21:00 01/19/19 20:10 Lipitor PO 80 mg HS GUILLE Administration Chlordiazepoxide HCl 10 mg 01/16/19 21:00 01/20/19 14:55 Librium PO 10 mg TID GUILLE Administration Enoxaparin Sodium 30 mg 01/17/19 09:00 01/20/19 07:57 Lovenox SC 30 mg 0900 GUILLE Administration Escitalopram Oxalate 20 mg 01/19/19 09:00 01/20/19 07:57 Lexapro PO 20 mg DAILY GUILLE Administration Folic Acid 1 mg 01/17/19 09:00 01/20/19 07:56 Folvite PO 1 mg DAILY GUILLE Administration Guaifenesin 600 mg 01/18/19 17:08 01/18/19 17:45 Mucinex PO 600 mg Q12HR PRN Administration Chest Congestion/Secretions Hydrocortisone/Aloe 0 gm 01/18/19 13:00 01/20/19 14:54 Hydrocortisone 1% Cream TOP 1 applic QID GUILLE Administration Ceftriaxone Sodium 1 gm/ 100 mls @ 200 mls/hr 01/16/19 18:00 01/19/19 17:03 Sodium Chloride IVPB 100 mls Q24HR GUILLE Administration Sodium Chloride 1,000 mls @ 100 mls/hr 01/18/19 15:45 01/20/19 10:33 Normal Saline 0.9% IV Not Given .Q10H GUILLE Lorazepam 1 mg 01/16/19 17:32 01/17/19 14:47 Ativan SLOW IVP 1 mg Q6H PRN Administration Alcohol Withdrawal Lorazepam 1 mg 01/20/19 04:00 01/20/19 09:00 Ativan SLOW IVP 01/20/19 23:00 1 mg WILLCALL GUILLE Administration Metoprolol Succinate 50 mg 01/18/19 09:00 01/20/19 07:56 Toprol Xl PO 50 mg DAILY GUILLE Administration Montelukast Sodium 10 mg 01/19/19 09:00 01/20/19 07:56 Singulair PO 10 mg DAILY GUILLE Administration Oxybutynin Chloride 10 mg 01/16/19 21:00 01/20/19 07:56 Ditropan PO 10 mg BID GUILLE Administration Sodium Chloride 10 ml 01/16/19 17:28 01/17/19 20:36 Flush - Normal Saline IVF 10 ml PRN PRN Administration Saline Flush Thiamine HCl 100 mg 01/17/19 09:00 01/20/19 07:56 Thiamine PO 100 mg DAILY GUILLE Administration - Exam Heart: negative: RRR, no murmur, no gallops, no rubs, normal peripheral pulses, irregular, diminshed peripheral pulses, murmur present, II/IV, III/IV Respiratory: negative: CTAB, no wheezes, no rales, no ronchi, normal chest expansion, no tachypnea, normal percussion, rales, rhonchi, tachypneic, wheezes Gastrointestinal: negative: soft, non-tender, non-distended, normal bowel sounds , no palpable masses, no hepatomegaly, no splenomegaly, no bruit, no guarding, no rigidity, tender to palpation, distended, diminished bowl sounds, voluntary guarding Hosp A/P (1) Syncope and collapse Code(s): R55 - SYNCOPE AND COLLAPSE Status: Acute (2) Stroke Code(s): I63.9 - CEREBRAL INFARCTION, UNSPECIFIED Status: Acute (3) DM II (diabetes mellitus, type II), controlled Code(s): E11.9 - TYPE 2 DIABETES MELLITUS WITHOUT COMPLICATIONS Status: Acute Qualifiers: Diabetes mellitus complication status: with kidney complications Diabetes mellitus complication detail: with chronic kidney disease Chronic kidney disease stage: stage 3 (moderate) (4) CKD (chronic kidney disease) stage 3, GFR 30-59 ml/min Status: Chronic (5) Dyslipidemia Code(s): E78.5 - HYPERLIPIDEMIA, UNSPECIFIED Status: Chronic - Plan pt's ct indicated stroke will get mri brain and her carotid doppler indicated significant plaque burden. Unable to to a ct due to her ckd will get mra. she is on statin and asa. 01/18 MRA not helpful. will get CV surgery for guidance. will hydrate pt and get CTA neck and head for eval. I will also get cardio due to her syncopal episode. 01/19 due to her elevated creatinine nephrology did not recommend a CTA. I did speak with the patient about the risk and benefits of contrast. will continue hydration and if her creatinine improves will do a cta. 01/20 pt's creatinine is improving. will do a cta. she is walking. continue asa/ statin. will continue fluids for now.
[2019-01-20] MEDS: cefTRIAXone\\ROCEPHIN 1 GM in Sodium Chloride 0.9% 100 ML IVPB SCH (18:04)
[2019-01-20] MEDS: Atorvastatin Calcium 40 MG TAB PO SCH (20:17)
--- NOTE | 2019-01-21 00:17 | CON ---
DATE OF CONSULTATION: I have reviewed the CT angiogram on Ms. Logan. She has multivessel calcification including vertebral and carotid arteries bilaterally. There is no flow-limiting or critical disease in either common or internal carotid arteries bilaterally. Due to the patient's chronic drug use and unreliable state, I would recommend that she take a full-dose aspirin only and would not utilize dual anti-platelet agents or other anticoagulants in her situation. Job ID: [id number]
[2019-01-21] MEDS: HYDROcodone/Acetaminophen 10/325 mg Tablet PO PRN ×2 (03:10→20:05)
[2019-01-21] MEDS: Sodium Chloride 0.9% 1,000 ML IV SCH ×2 (03:10→17:10)
[2019-01-21] MEDS: Aspirin 81 mg Enteric Coated Tablet PO SCH (09:49)
[2019-01-21] MEDS: Folic Acid 1 MG TAB PO SCH (09:49)
[2019-01-21] MEDS: Oxybutynin 5 MG TAB PO SCH ×2 (09:49→20:00)
[2019-01-21] MEDS: Montelukast Sodium 10 mg Tablet PO SCH (09:49)
[2019-01-21] MEDS: Thiamine 100 MG TAB PO SCH (09:49)
[2019-01-21] MEDS: Escitalopram Oxalate 20 mg Tablet PO SCH (09:49)
[2019-01-21] MEDS: Amlodipine 10 MG TAB PO SCH (09:49)
[2019-01-21] MEDS: Hydrocortisone 1% Cream 30 GM TUBE TOP SCH ×4 (09:50→20:02)
[2019-01-21] MEDS: Enoxaparin Sodium 30 MG/0.3 ML SYRINGE SC SCH (09:51)
--- NOTE | 2019-01-21 10:36 | EKG ---
Test Reason : OD Blood Pressure : / mmHG Vent. Rate : 059 BPM Atrial Rate : 059 BPM P-R Int : 210 ms QRS Dur : 088 ms QT Int : 492 ms P-R-T Axes : 034 018 038 degrees QTc Int : 487 ms Sinus bradycardia with 1st degree A-V block Otherwise normal ECG Confirmed by MIRNA FANG, JESUS ([id number]), art editor ANDERSON CLEMENTS ([id number] on 01/21/2019 10:35:31 AM Referred By: Confirmed By:JESUS BRADLEY MD
[2019-01-21 10:50] LABS: Anion Gap 12 mmol/L (10-20); BUN (Urea Nitrogen) 21 mg/dL (9.8-20.1); Calc. Creatinine Clearance 46 mL/min (70-130); Calcium 8.2 mg/dL (7.8-10.44); Carbon Dioxide 22 mmol/L (23-31); Chloride 108 mmol/L (98-107); Estimated GFR-MDRD 38; Glucose 132 mg/dL (80-115); Potassium 4.1 mmol/L (3.5-5.1); Sodium 138 mmol/L (136-145)
--- NOTE | 2019-01-21 11:06 | PRG ---
DATE OF SERVICE: 01/21/2019 SUBJECTIVE: Patient was seen and examined at bedside and overnight events noted. Patient denies any shortness of breath or chest pain or palpitation. No history of nausea or vomiting or diarrhea or fever or chills or cramps. OBJECTIVE: GENERAL: This is a well-built female, in no apparent distress. VITAL SIGNS: Temperature 98, heart rate 76, respiratory rate 16, blood pressure 134/75. HEENT: Atraumatic, normocephalic. Oral mucosa is moist NECK: Supple. CARDIOVASCULAR: S1, S2 heard. Rate and rhythm regular. RESPIRATORY: Clear to auscultation. GASTROINTESTINAL: Abdomen is soft. MUSCULOSKELETAL: No tenderness. No edema. DERMATOLOGIC: No skin rash. NEUROLOGIC: Alert and awake and oriented X3. No focal neurologic deficits. Moving all the extremities. PSYCHIATRIC: Mood and affect normal. LABORATORY DATA: Potassium 4.1, BUN is 24, and creatinine is 1.4, it is from yesterday and no labs today. ASSESSMENT AND PLAN: 1. Acute kidney injury, on chronic kidney disease stage 3. We will check labs today after the contrast exposure. 2. Edema, controlled. 3. Hypertension. 4. The patient is reportedly making lot of urine and plan is to check labs today and order labs for the morning too. Job ID: [id number]
[2019-01-21] MEDS ORDERED: Milk Of Magnesia 30 ML UDCUP PO PRN (11:32)
--- NOTE | 2019-01-21 11:50 | PDOC.HOSPP ---
- Subjective Encounter Date: 01/21/19 Encounter Time: 11:48 Subjective: Ms. Logan was seen today in follow-up of metabolic encephalopathy, and acute CVA. She does not have any complaints today. - Objective Vital Signs & Weight: Vital Signs (12 hours) Temp Pulse Resp BP BP BP Pulse Ox 01/21/19 09:50 123/67 01/21/19 09:49 76 123/67 01/21/19 08:00 98 F 76 16 134/75 93 L 01/21/19 04:00 98.3 F 71 16 145/69 H 145/69 H 97 01/21/19 00:00 152/78 H Weight Admit Weight 157 lb 9 oz Weight 157 lb 9 oz I&O: 01/20/19 01/21/19 01/22/19 06:59 06:59 06:59 Intake Total 2760 0 Output Total 2150 2 Balance 610 2047 Result Diagrams: 01/16/19 13:29 01/21/19 10:01 Hospitalist ROS - Medication Medications: Active Medications Generic Name Dose Route Start Last Admin Trade Name Freq PRN Reason Stop Dose Admin Acetaminophen 650 mg 01/17/19 05:40 01/17/19 05:50 Tylenol PO 650 mg Q6H PRN Administration Headache/Fever or Pain Acetaminophen/Codeine Phosphate 1 tab 01/18/19 18:46 01/18/19 21:20 Tylenol #3 PO 1 tab Q6H PRN Administration Pain 4-6 Hydrocodone Bitart/Acetaminophen 2 tab 01/19/19 16:25 01/21/19 03:10 [place] 10/325 PO 2 tab Q6H PRN Administration Severe Pain (8-10) Amlodipine Besylate 10 mg 01/19/19 09:00 01/21/19 09:49 Norvasc PO 10 mg DAILY GUILLE Administration Atorvastatin Calcium 80 mg 01/17/19 21:00 01/20/19 20:17 Lipitor PO 80 mg HS GUILLE Administration Chlordiazepoxide HCl 10 mg 01/16/19 21:00 01/21/19 09:49 Librium PO 10 mg TID GUILLE Administration Enoxaparin Sodium 30 mg 01/17/19 09:00 01/21/19 09:51 Lovenox SC 30 mg 09 GUILLE Administration Escitalopram Oxalate 20 mg 01/19/19 09:00 01/21/19 09:49 Lexapro PO 20 mg DAILY GUILLE Administration Folic Acid 1 mg 01/17/19 09:00 01/21/19 09:49 Folvite PO 1 mg DAILY GUILLE Administration Guaifenesin 600 mg 01/18/19 17:08 01/18/19 17:45 Mucinex PO 600 mg Q12HR PRN Administration Chest Congestion/Secretions Hydrocortisone/Aloe 0 gm 01/18/19 13:00 01/21/19 09:50 Hydrocortisone 1% Cream TOP 1 applic QID GUILLE Administration Sodium Chloride 1,000 mls @ 100 mls/hr 01/18/19 15:45 01/21/19 03:10 Normal Saline 0.9% IV 1,000 mls .Q10H GUILLE Administration Lorazepam 1 mg 01/16/19 17:32 01/17/19 14:47 Ativan SLOW IVP 1 mg Q6H PRN Administration Alcohol Withdrawal Metoprolol Succinate 50 mg 01/18/19 09:00 01/21/19 09:49 Toprol Xl PO 50 mg DAILY GUILLE Administration Montelukast Sodium 10 mg 01/19/19 09:00 01/21/19 09:49 Singulair PO 10 mg DAILY GUILLE Administration Oxybutynin Chloride 10 mg 01/16/19 21:00 01/21/19 09:49 Ditropan PO 10 mg BID GUILLE Administration Sodium Chloride 10 ml 01/16/19 17:28 01/17/19 20:36 Flush - Normal Saline IVF 10 ml PRN PRN Administration Saline Flush Thiamine HCl 100 mg 01/17/19 09:00 01/21/19 09:49 Thiamine PO 100 mg DAILY GUILLE Administration - Exam Eye: PERRL, anicteric sclera Heart: RRR, no murmur, no gallops, no rubs, normal peripheral pulses Respiratory: CTAB, no wheezes, no rales, no ronchi, normal chest expansion, no tachypnea, normal percussion Gastrointestinal: soft, non-tender, non-distended, normal bowel sounds, no palpable masses, no hepatomegaly, no splenomegaly Extremities: no cyanosis, no clubbing, no edema Hosp A/P (1) Acute renal failure superimposed on chronic kidney disease Code(s): N17.9 - ACUTE KIDNEY FAILURE, UNSPECIFIED; N18.9 - CHRONIC KIDNEY DISEASE, UNSPECIFIED Status: Acute (2) Syncope and collapse Code(s): R55 - SYNCOPE AND COLLAPSE Status: Acute (3) Substance abuse Code(s): F19.10 - OTHER PSYCHOACTIVE SUBSTANCE ABUSE, UNCOMPLICATED Status: Acute (4) Hypertension Code(s): I10 - ESSENTIAL (PRIMARY) HYPERTENSION Status: Chronic Qualifiers: - Plan * Acute on chronic kidney injury- this has improved, I suspect she is at her baseline renal function- continue IV hydration, and repeat BMP in the AM * Acute CVA- discussed with the patient- will increase her dose of aspirin to 325mg a day * Discussed substance abuse, which she denies * HTN- blood pressure is stable * Continue statin- dose can be lowered at discharge * Anticipate discharge home tomorrow
--- NOTE | 2019-01-21 12:56 | PDOC.CPN ---
- Subjective Date: 01/21/19 Time: 12:53 - Review of Systems General: denies: fever/chills, weight/appetite/sleep changes, night sweats, fatigue Respiratory: denies: cough, congestion, shortness of breath, exercise intolerance Cardiovascular: denies: chest pain, palpitation, edema, paroxysmal nocturnal dyspnea, orthopnea Gastrointestinal: denies: nausea, vomiting, diarrhea, constipation, abd pain, GI bleeding Musculoskeletal: denies: pain, tenderness, stiffness, swelling, arthritis/ arthralgias - Objective Allergies/Adverse Reactions: Allergies Allergy/AdvReac Type Severity Reaction Status Date / Time sulfamethoxazole Allergy Mild Stomach Verified 12/01/17 13:57 [From Bactrim] Ache trimethoprim [From Bactrim] Allergy Mild Stomach Verified 12/01/17 13:57 Ache clindamycin Allergy Nausea Verified 12/01/17 13:57 metformin Allergy Nausea Verified 12/01/17 13:57 naproxen Allergy Nausea Verified 12/01/17 13:57 tramadol Allergy Nausea Verified 12/01/17 13:57 tramadol HCl [From Ultram] Allergy Nausea Verified 12/01/17 13:57 Visit Medications: Current Medications Acetaminophen (Tylenol) 650 mg PO Q6H PRN PRN Reason: Headache/Fever or Pain Last Admin: 01/17/19 05:50 Dose: 650 mg Acetaminophen/Codeine Phosphate (Tylenol #3) 1 tab PO Q6H PRN PRN Reason: Pain 4-6 Last Admin: 01/18/19 21:20 Dose: 1 tab Hydrocodone Bitart/Acetaminophen ([place] 10/325) 1 tab PO Q6H PRN PRN Reason: Moderate Pain (4-7) Hydrocodone Bitart/Acetaminophen ([place] 10/325) 2 tab PO Q6H PRN PRN Reason: Severe Pain (8-10) Last Admin: 01/21/19 03:10 Dose: 2 tab Amlodipine Besylate (Norvasc) 10 mg PO DAILY [facility] Last Admin: 01/21/19 09:49 Dose: 10 mg Aspirin (Ecotrin) 325 mg PO DAILY [facility] Atorvastatin Calcium (Lipitor) 80 mg PO HS [facility] Last Admin: 01/20/19 20:17 Dose: 80 mg Chlordiazepoxide HCl (Librium) 10 mg PO TID [facility] Last Admin: 01/21/19 09:49 Dose: 10 mg Docusate Sodium (Colace) 100 mg PO BID [facility] Enoxaparin Sodium (Lovenox) 30 mg SC 0900 [facility] Last Admin: 01/21/19 09:51 Dose: 30 mg Escitalopram Oxalate (Lexapro) 20 mg PO DAILY [facility] Last Admin: 01/21/19 09:49 Dose: 20 mg Folic Acid (Folvite) 1 mg PO DAILY [facility] Last Admin: 01/21/19 09:49 Dose: 1 mg Guaifenesin (Mucinex) 600 mg PO Q12HR PRN PRN Reason: Chest Congestion/Secretions Last Admin: 01/18/19 17:45 Dose: 600 mg Hydrocortisone/Aloe (Hydrocortisone 1% Cream) 0 gm TOP QID [facility] Last Admin: 01/21/19 12:46 Dose: 1 applic Sodium Chloride (Normal Saline 0.9%) 1,000 mls @ 100 mls/hr IV .Q10H [facility] Last Admin: 01/21/19 03:10 Dose: 1,000 mls Lorazepam (Ativan) 1 mg SLOW IVP Q6H PRN PRN Reason: Alcohol Withdrawal Last Admin: 01/17/19 14:47 Dose: 1 mg Magnesium Hydroxide (Milk Of Magnesium) 30 ml PO DAILYPRN PRN PRN Reason: Constipation Last Admin: 01/21/19 12:46 Dose: 30 ml Metoprolol Succinate (Toprol Xl) 50 mg PO DAILY [facility] Last Admin: 01/21/19 09:49 Dose: 50 mg Montelukast Sodium (Singulair) 10 mg PO DAILY [facility] Last Admin: 01/21/19 09:49 Dose: 10 mg Oxybutynin Chloride (Ditropan) 10 mg PO BID [facility] Last Admin: 01/21/19 09:49 Dose: 10 mg Sodium Chloride (Flush - Normal Saline) 10 ml IVF PRN PRN PRN Reason: Saline Flush Last Admin: 01/17/19 20:36 Dose: 10 ml Thiamine HCl (Thiamine) 100 mg PO DAILY [facility] Last Admin: 01/21/19 09:49 Dose: 100 mg Vital Signs & Weight: Vital Signs Temp Pulse Pulse Resp BP BP BP 01/21/19 11:35 98.7 F 71 16 01/21/19 11:30 122/71 01/21/19 10:08 70 128/72 139/79 01/21/19 09:50 123/67 01/21/19 09:49 76 123/67 01/21/19 08:00 98 F 76 16 01/21/19 04:00 98.3 F 71 16 145/69 H BP BP Pulse Ox 01/21/19 11:35 122/71 95 01/21/19 11:30 01/21/19 10:08 01/21/19 09:50 01/21/19 09:49 01/21/19 08:00 134/75 93 L 01/21/19 04:00 145/69 H 97 Admit Weight 157 lb 9 oz Weight 157 lb 9 oz - Physical Exam General: alert & oriented x3, appears well HEENT: mucus membranes moist Neck: supple neck Cardiac: regular rate and rhythm Lungs: clear to auscultation, normal breath sounds - Labs Result Diagrams: 01/16/19 13:29 01/21/19 10:01 Troponin/CKMB Troponin I 0.012 ng/mL (< 0.028) 01/16/19 19:30 - Telemetry Sinus rhythms and dysrhythmias: sinus rhythm - Assessment/Plan Assessment/Plan: 1. CVA 2. Hx drug abuse 3. HTN 4. UTI Bp stable. No documented arrhythmias. Ok for discharge at any time. ASA only.
[2019-01-21] MEDS: Atorvastatin Calcium 40 MG TAB PO SCH (20:00)
[2019-01-21] MEDS: Docusate 100 MG CAP PO SCH (20:01)
[2019-01-22] MEDS: HYDROcodone/Acetaminophen 10/325 mg Tablet PO PRN ×2 (03:12→11:59)
[2019-01-22 05:11] LABS: Anion Gap 12 mmol/L (10-20); BUN (Urea Nitrogen) 23 mg/dL (9.8-20.1); Calc. Creatinine Clearance 48 mL/min (70-130); Calcium 8.2 mg/dL (7.8-10.44); Carbon Dioxide 24 mmol/L (23-31); Chloride 107 mmol/L (98-107); Estimated GFR-MDRD 41; Glucose 92 mg/dL (80-115); Potassium 4.5 mmol/L (3.5-5.1); Sodium 138 mmol/L (136-145)
[2019-01-22] MEDS ORDERED: Aspirin 325 mg Enteric Coated Tablet PO SCH (09:00)
--- NOTE | 2019-01-22 09:39 | PDOC.HOSPP ---
- Subjective Encounter Date: 01/22/19 Encounter Time: 09:38 Subjective: Ms. Logan was seey in follow-up of altered mental status. she is now at her baseline. - Objective Vital Signs & Weight: Vital Signs (12 hours) Temp Pulse Resp BP BP BP Pulse Ox 01/22/19 08:10 108/61 01/22/19 07:40 98.0 F 67 20 108/61 93 L 01/22/19 04:00 97.8 F 68 16 116/66 116/66 93 L 01/22/19 00:00 97.9 F 78 16 145/77 H 145/77 H 90 L Weight Admit Weight 157 lb 9 oz Weight 157 lb 9 oz I&O: 01/21/19 01/22/19 01/23/19 06:59 06:59 06:59 Intake Total 2049 4650 300 Output Total 2 2600 Balance 2047 2049 300 Result Diagrams: 01/16/19 13:29 01/22/19 04:35 Hospitalist ROS - Medication Medications: Active Medications Generic Name Dose Route Start Last Admin Trade Name Freq PRN Reason Stop Dose Admin Acetaminophen 650 mg 01/17/19 05:40 01/17/19 05:50 Tylenol PO 650 mg Q6H PRN Administration Headache/Fever or Pain Acetaminophen/Codeine Phosphate 1 tab 01/18/19 18:46 01/18/19 21:20 Tylenol #3 PO 1 tab Q6H PRN Administration Pain 4-6 Hydrocodone Bitart/Acetaminophen 2 tab 01/19/19 16:25 01/22/19 03:12 [place] 10/325 PO 2 tab Q6H PRN Administration Severe Pain (8-10) Amlodipine Besylate 10 mg 01/19/19 09:00 01/21/19 09:49 Norvasc PO 10 mg DAILY [facility] Administration Atorvastatin Calcium 80 mg 01/17/19 21:00 01/21/19 20:00 Lipitor PO 80 mg HS [facility] Administration Chlordiazepoxide HCl 10 mg 01/16/19 21:00 01/21/19 20:01 Librium PO 10 mg TID [facility] Administration Docusate Sodium 100 mg 01/21/19 21:00 01/21/19 20:01 Colace PO 100 mg BID [facility] Administration Enoxaparin Sodium 30 mg 01/17/19 09:00 01/21/19 09:51 Lovenox SC 30 mg 0900 [facility] Administration Escitalopram Oxalate 20 mg 01/19/19 09:00 01/21/19 09:49 Lexapro PO 20 mg DAILY [facility] Administration Folic Acid 1 mg 01/17/19 09:00 01/21/19 09:49 Folvite PO 1 mg DAILY [facility] Administration Guaifenesin 600 mg 01/18/19 17:08 01/18/19 17:45 Mucinex PO 600 mg Q12HR PRN Administration Chest Congestion/Secretions Hydrocortisone/Aloe 0 gm 01/18/19 13:00 01/21/19 20:02 Hydrocortisone 1% Cream TOP 1 applic QID [facility] Administration Lorazepam 1 mg 01/16/19 17:32 01/17/19 14:47 Ativan SLOW IVP 1 mg Q6H PRN Administration Alcohol Withdrawal Magnesium Hydroxide 30 ml 01/21/19 11:32 01/21/19 12:46 Milk Of Magnesium PO 30 ml DAILYPRN PRN Administration Constipation Metoprolol Succinate 50 mg 01/18/19 09:00 01/21/19 09:49 Toprol Xl PO 50 mg DAILY [facility] Administration Montelukast Sodium 10 mg 01/19/19 09:00 01/21/19 09:49 Singulair PO 10 mg DAILY [facility] Administration Oxybutynin Chloride 10 mg 01/16/19 21:00 01/21/19 20:00 Ditropan PO 10 mg BID [facility] Administration Sodium Chloride 10 ml 01/16/19 17:28 01/17/19 20:36 Flush - Normal Saline IVF 10 ml PRN PRN Administration Saline Flush Thiamine HCl 100 mg 01/17/19 09:00 01/21/19 09:49 Thiamine PO 100 mg DAILY [facility] Administration - Exam Eye: PERRL, anicteric sclera Heart: RRR, no murmur, no gallops, no rubs, normal peripheral pulses Respiratory: CTAB, no wheezes, no rales, no ronchi, normal chest expansion Gastrointestinal: soft, non-tender, non-distended, normal bowel sounds, no palpable masses, no hepatomegaly, no splenomegaly Extremities: no cyanosis, no clubbing, no edema Neurological: cranial nerve grossly intact, no focal deficits Psychiatric: normal affect, normal behavior, A&O x 3 Hosp A/P (1) Acute renal failure superimposed on chronic kidney disease Code(s): N17.9 - ACUTE KIDNEY FAILURE, UNSPECIFIED; N18.9 - CHRONIC KIDNEY DISEASE, UNSPECIFIED Status: Acute (2) Syncope and collapse Code(s): R55 - SYNCOPE AND COLLAPSE Status: Acute (3) Substance abuse Code(s): F19.10 - OTHER PSYCHOACTIVE SUBSTANCE ABUSE, UNCOMPLICATED Status: Acute (4) Hypertension Code(s): I10 - ESSENTIAL (PRIMARY) HYPERTENSION Status: Chronic Qualifiers: - Plan * Acute on chronic kidney injury- much improved, and she is at her baseline * Acute CVA- discussed with the patient- will increase her dose of aspirin to 325mg a day * Discussed substance abuse, which she denies * HTN- blood pressure is stable * Continue statin- at 40mg a day * Home today
[2019-01-22] MEDS: Hydrocortisone 1% Cream 30 GM TUBE TOP SCH ×2 (10:00→11:59)
[2019-01-22] MEDS: Amlodipine 10 MG TAB PO SCH (10:01)
[2019-01-22] MEDS: Docusate 100 MG CAP PO SCH (10:02)
[2019-01-22] MEDS: Folic Acid 1 MG TAB PO SCH (10:03)
[2019-01-22] MEDS: Escitalopram Oxalate 20 mg Tablet PO SCH (10:03)
[2019-01-22] MEDS: Enoxaparin Sodium 30 MG/0.3 ML SYRINGE SC SCH (10:03)
[2019-01-22] MEDS: Oxybutynin 5 MG TAB PO SCH (10:04)
[2019-01-22] MEDS: Thiamine 100 MG TAB PO SCH (10:04)
[2019-01-22] MEDS: Montelukast Sodium 10 mg Tablet PO SCH (10:04)
[2019-01-22 11:46] VITALS: BP 110/61; TEMP 98.5
--- NOTE | 2019-01-22 12:13 | PRG ---
DATE OF SERVICE: 01/22/2019 SUBJECTIVE: Patient was seen and examined at bedside and overnight events noted. Patient denies any shortness of breath or chest pain or palpitation. No history of nausea or vomiting or diarrhea or fever or chills or cramps. OBJECTIVE: GENERAL: This is a well-built female, in no apparent distress. VITAL SIGNS: Temperature 98.5. Heart rate 70. Respiratory rate 18. Blood pressure 110/61. HEENT: Atraumatic, normocephalic. Oral mucosa is moist NECK: Supple. CARDIOVASCULAR: S1, S2 heard. Rate and rhythm regular. RESPIRATORY: Clear to auscultation. GASTROINTESTINAL: Abdomen is soft. MUSCULOSKELETAL: No tenderness. No edema. DERMATOLOGIC: No skin rash. NEUROLOGIC: Alert and awake and oriented X3. No focal neurologic deficits. Moving all the extremities. PSYCHIATRIC: Mood and affect normal. LABORATORY DATA: Potassium 4.5, BUN is 23, and creatinine is 1.3 with a GFR of 41. ASSESSMENT AND PLAN: 1. Acute kidney injury on chronic kidney stage 3, much better. No change in labs after contrast exposure even 48 hours later. 2. Edema, controlled. 3. Hypertension. 4. Stable anemia. Labs are stable. Avoid nephrotoxins. Job ID: [id number]
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
== END 2019-01-22 14:46 | disposition home or self-care (01) | DRG 64 ==
LOC: ERS 12:58 → ERHOLD 15:12 → 2SE 18:37
PROVIDERS: ADMIT Internal Medicine; ATTEND Internal Medicine
PROC: 4A023FZ Measurement of Cardiac Rhythm, Percutaneous Approach (ICD-10-PCS; principal; 2019-01-17)
PROC: 4A0234Z Measurement of Cardiac Electrical Activity, Percutaneous Approach (ICD-10-PCS; 2019-01-17)
DX: I63.9 Cerebral infarction, unspecified (principal); G93.41 Metabolic encephalopathy; N17.9 Acute kidney failure, unspecified; K51.90 Ulcerative colitis, unspecified, without complications; F19.10 Other psychoactive substance abuse, uncomplicated; E78.5 Hyperlipidemia, unspecified; I12.9 Hypertensive chronic kidney disease with stage 1 through stage 4 chronic kidney disease, or unspecified chronic kidney disease; N18.3 Chronic kidney disease, stage 3 (moderate); K21.9 Gastro-esophageal reflux disease without esophagitis; E78.00 Pure hypercholesterolemia, unspecified; M19.90 Unspecified osteoarthritis, unspecified site; F41.9 Anxiety disorder, unspecified; F32.9 Major depressive disorder, single episode, unspecified; F10.10 Alcohol abuse, uncomplicated; E66.9 Obesity, unspecified; D63.1 Anemia in chronic kidney disease; J44.9 Chronic obstructive pulmonary disease, unspecified; Z88.8 Allergy status to other drugs, medicaments and biological substances; Z88.6 Allergy status to analgesic agent; Z88.1 Allergy status to other antibiotic agents; Z91.013 Allergy to seafood; Z90.49 Acquired absence of other specified parts of digestive tract; Z90.710 Acquired absence of both cervix and uterus; Z98.42 Cataract extraction status, left eye; Z98.41 Cataract extraction status, right eye
CPT/HCPCS: 36415; 51701; 70450; 70498; 70547; 70551; 71045; 80048; 80053; 80061; 80306; 80307; 81003; 81015; 82607; 83690; 84146; 84443; 84484; 85025; 90471; 90662; 90670; 93005; 93306; 93880; 95816; 95819; 96365; 96366; 96375; A4353; G0008; G0009; J0696; J1650; J2060; J2310; J3411; J3490; J7042

== ENCOUNTER 2019-01-23 13:46 | Observation (INO) | payer MEDICARE, MEDICAID ==
[2019-01-23] MEDS ORDERED: Albuterol Sulfate 2.5 mg/3 ml Neb ONE (14:02)
[2019-01-23 14:10] LABS: Actual Bicarbonate (HCO3a) 21.8 mEq/L (22-28); Analyzer IN Cardio ER; Base Excess (BEa) -3.4 mEq/L (-2.0 to +3.0); CO2 Tension 39.8 mmHg (35.0-45.0); Calcium, Ionized 1.19 mmol/L (1.12-1.30); Carboxyhemoglobin (COHb) 0.8 gm% (0.0-3.0); Hemoglobin (Hb) 10.9 g/dL (12.0-16.0); O2 Tension (PaO2) 60.1 mmHg (> 80.0); Potassium - ABG Lab 4.27 mmol/L (3.70-5.30); pH, Arterial 7.36 (7.35-7.45)
[2019-01-23] MEDS ORDERED: Dexamethasone 10 MG/ML VIAL ONE (14:10)
[2019-01-23] MEDS ORDERED: Magnesium 2 GM/50 ML BAG (IN WATER) ONE (14:10)
[2019-01-23 14:11] LABS: Puncture Site RRA
[2019-01-23 14:35] LABS: #Basophils 0.1 thou/uL (0.0-0.2); #Eosinphils 0.4 thou/uL (0.0-0.7); #Lymphocytes 2.1 thou/uL (1.20-3.40); #Monocytes 0.9 thou/uL (0.11-0.59); #Neutrophils 7.7 thou/uL (1.40-6.50); %Basophils 0.7 % (0.0-1.0); %Eosinophils 3.5 % (0.0-10.0); %Lymphocytes 19.1 % (21.0-51.0); %Monocytes 7.7 % (0.0-10.0); Hemoglobin 9.8 g/dL (12.0-16.0); Mean Corpuscular HGB CONC 31.8 g/dL (32.0-36.0); Mean Corpuscular Volume 94.2 fL (78.0-98.0); Mean Platelet Volume 8.6 fL (7.4-10.4); Platelet Count 192 thou/uL (130-400); RBC Distribution Width 13.3 % (11.5-14.5); Red Blood Cell (RBC) Count 3.25 mill/uL (4.20-5.40); White Blood Cell (WBC) Count 11.1 thou/uL (4.8-10.8)
[2019-01-23 15:00] LABS: ALT (SGPT) 169 U/L (8-55); AST (SGOT) 244 U/L (5-34); Albumin 3.7 g/dL (3.4-4.8); Alkaline Phosphatase 391 U/L (40-110); Anion Gap 15 mmol/L (10-20); BUN (Urea Nitrogen) 26 mg/dL (9.8-20.1); Bilirubin, Total 0.4 mg/dL (0.2-1.2); CK (CPK) 38 U/L (29-168); Calc. Creatinine Clearance 0 mL/min (70-130); Calcium 8.8 mg/dL (7.8-10.44); Carbon Dioxide 23 mmol/L (23-31); Chloride 105 mmol/L (98-107); Estimated GFR-MDRD 32; Globulin 2.9 g/dL (2.4-3.5); Glucose 90 mg/dL (80-115); Lipase 13 U/L (8-78); Potassium 4.5 mmol/L (3.5-5.1); Protein, Total 6.6 g/dL (6.0-8.3); Sodium 138 mmol/L (136-145)
--- NOTE | 2019-01-23 15:12 | RAD ---
PORTABLE CHEST 1 VIEW: Date: 01/23/19 Time: 1442 hours HISTORY: Dyspnea. FINDINGS/IMPRESSION: Comparison made with exam of 01/16/19. The heart size is borderline. The aorta is tortuous. No lobar consolidation, pneumothoraces, michelle pu lmonary edema, or pleural effusions are seen. POS: OFF
[2019-01-23] MEDS ORDERED: Furosemide 40 MG/4 ML VIAL ONE (15:31)
[2019-01-23 16:01] LABS: Bacteria/HPF None Seen HPF (None Seen); Bilirubin Negative (Negative); Blood, Urine 1+ (Negative); Clarity Clear (Clear); Glucose, Urine (Dipstick) Normal (Negative); Leukocyte 500 Leu/uL (Negative); Nitrite Negative (Negative); Protein, Urine (Dipstick) 10 mg/dL (Neg-Trace); RBC/HPF 21-50 HPF (0-3); Squamous Epithelial 0-3 HPF (0-3); Urobilinogen Normal mg/dL (Less than 2); WBC/HPF Greater than 50 HPF (0-3)
--- NOTE | 2019-01-23 17:16 | NM ---
NM Lung Ventilation Imaging HISTORY: Shortness of breath COMPARISON: Chest x-ray done today. FINDINGS: The ventilation portion of the study was performed using 24 mCi xenon-133 gas followed by t he perfusion study performed using 5.6 mCi of 90 9M technetium MAA. This shows a fairly normal ventilation and perfusion pattern. IMPRESSION: Findings compatible with a very low probability of pulmonary embolus.
[2019-01-23 17:23] VITALS: BMI 27.8
[2019-01-23] MEDS ORDERED: Ondansetron PF 4 MG/2 ML Vial IVP PRN (19:14)
[2019-01-23] MEDS ORDERED: Ondansetron ODT 4 MG TAB SL PRN (19:14)
[2019-01-23] MEDS ORDERED: Dexamethasone 10 MG/ML VIAL SLOW IVP SCH (21:00)
[2019-01-23] MEDS ORDERED: HYDROcodone/Acetaminophen 10/325 mg Tablet PO PRN (21:45)
[2019-01-23] MEDS ORDERED: Acetaminophen 325 MG TAB PO PRN (21:45)
[2019-01-23] MEDS ORDERED: Senokot S 8.6-50 MG TAB PO PRN (21:45)
[2019-01-23] MEDS ORDERED: RANITIDINE HCL 75 MG PO PRN (21:53)
[2019-01-23] MEDS ORDERED: Bacteriostatic Water 30 ML VIAL FS PRN (21:56)
[2019-01-23] MEDS ORDERED: hydrOXYzine 25 MG TAB PO PRN (22:07)
[2019-01-23] MEDS: HYDROcodone/Acetaminophen 10/325 mg Tablet PO PRN (22:39)
[2019-01-24] MEDS ORDERED: Dexamethasone 10 MG/ML VIAL SLOW IVP SCH (02:00)
--- NOTE | 2019-01-24 03:28 | HP ---
PRIMARY CARE PHYSICIAN: Dr. Hernandez. CHIEF COMPLAINT: Shortness of breath. HISTORY OF PRESENT ILLNESS: Ms. Logan is a 63-year-old female, recently discharged from this facility the day before admission with complaints of shortness of breath. EMS reports that home health nurse came to check on her today and reports that she was hypoxic when they were checking her vital signs and wanted her to get checked up. She has a past medical history pertinent for GERD, inflammatory bowel disease, ulcerative colitis, hyperlipidemia, hypertension, COPD, asthma, MVP, osteoarthritis, and obesity. She spent about a week at this facility from 01/16/2019 to 01/22/2019 for metabolic encephalopathy, acute cerebrovascular accident, polysubstance abuse, hypertension, dyslipidemia, and chronic obstructive pulmonary disease. Patient was admitted on this previous admission for syncopal episode at home. CT scan in the emergency room at that time showed areas with white matter changes suspicious for an evolving infarct. On MRI, she had a new infarct that was seen with a watershed distribution involving the right cerebral hemisphere. Urine drug screen was positive for methamphetamines and benzodiazepines. She denied using any of the substances. She was evaluated by Vascular Surgery on his previous admission due to some changes seen on her carotid Doppler as well as the CT angiogram of the neck. She was felt not to be a candidate for revascularization or candidate for full anticoagulation and was placed on a full-dose aspirin. She was also started on amlodipine. Evidently, she was resistant to going home due to some issues with her , but eventually was discharged home with home health. In the emergency room on the current visit, she was found to be hypoxic with PO2 sats 85% on room air, and she bumped up to 96% on 3 L of oxygen. She was given Levaquin, furosemide 40 mg, magnesium, Decadron, DuoNeb, albuterol, and 500 mg of sodium chloride IV. At that time, she was evaluated by the hospitalist [employer]. She was saturating and 97% on room air. She reports that she felt better, was not as quite as dyspneic. She was admitted to the medical unit for COPD exacerbation. PAST MEDICAL HISTORY: GERD, questionable ulcerative colitis, hyperlipidemia, hypertension, and COPD. Patient reports that she had been in rehab facility for a detox of Xanax, currently on Librium, however, she continues to drink on a regular basis, even on the Librium. PAST SURGICAL HISTORY: Cholecystectomy, hysterectomy, multiple orthopedic surgeries including right knees, spinal surgery. Also, tonsillectomy. Also, reports having a cardiac cath. SOCIAL HISTORY: Drinks almost everyday. Quit smoking 10 years ago. She does still smoke a few cigarettes now and then. Lives at home with her . ALLERGIES: BACTRIM, CLINDAMYCIN, METFORMIN, NAPROXEN, AND TRAMADOL. HOME MEDICATIONS: 1. Biotin 5000 mcg p.o. b.i.d. 2. Librium 20 mg p.o. t.i.d. 3. Lexapro 20 mg p.o. daily. 4. Guaifenesin ER 1200 mg p.o. b.i.d. 5. Hydrocodone 10 mg-325 one to two tablets p.o. q.6 hours p.r.n. 6. Hydroxyzine 50 mg two tab p.o. q.6 hours. 7. Metoprolol 50 mg p.o. daily. 8. Singulair 10 mg p.o. daily. 9. Ditropan 10 mg p.o. b.i.d. 10. Zantac 75 mg p.o. daily. 11. Zanaflex 4 mg p.o. q.8 hours. 12. Norvasc 10 mg p.o. daily. 13. Aspirin 325 mg p.o. daily. 14. Lipitor 40 mg p.o. daily. 15. Vitamin B12 is 1000 mcg p.o. daily. REVIEW OF SYSTEMS: Denies fever or chills. Denies any chest pain or syncope, but does report some shortness of breath. Some hypoxia. Denies any diarrhea. Does report some constipation. All other systems reviewed and negative unless mentioned in the HPI. PHYSICAL EXAMINATION: VITAL SIGNS: Blood pressure is 138/65, pulse is 91, respirations are 21, pO2 sats are 96% on 3 L. At time of exam, patient was 96% on room air. CONSTITUTIONAL: Patient is in no acute distress. She is alert and oriented to person, place, and time. HEENT: Head is atraumatic and normocephalic. Eyes, pupils are equally round and reactive to light. Extraocular muscles are intact. ENT; mouth exam is normal. Mucous membranes are moist. NECK: Trachea is midline. No tenderness. RESPIRATORY/CHEST: Breath sounds are tight. Not great air exchange. Chest movement is symmetrical. CARDIOVASCULAR: Regular heart rate and rhythm. No murmurs. ABDOMEN: Nontender. Bowel sounds are heard. BACK: Normal range of motion. No tenderness. EXTREMITIES: Upper extremity, normal motor strength, normal range of motion. Radial pulses are normal. Lower extremity, normal range of motion. Normal strength. No calf tenderness. Pedal pulses are normal. NEUROLOGIC: Patient is oriented to person, place, and time. Speech is normal. SKIN: Warm, dry, and normal in color. DATA REVIEWED: EKG shows normal sinus rhythm, beats per minute 89. ST segments T-waves are normal. LABORATORY DATA: White blood cell count 11.1, hemoglobin 9.8, and hematocrit 30.7. Patient's D-dimer 1.46. V/Q scan was low probability for PE. Chemistry pertinent for a BUN of 26, creatinine of 1.63. When it was checked prior to discharge on 01/22/2019, it was 1.31. Estimated GFR is 32. On 01/22/2019, it was 41. Of note, his LFTs are abnormal. AST 244, ALT 169, and alk phos is 291. BNP is 1254. Urine with 1+ blood, leukocyte esterase 500, red blood cells 21 to 50, white blood cell count greater than 50. Urine culture has been ordered. PLAN/ASSESSMENT: 1. Chronic obstructive pulmonary disease exacerbation. We will continue the DuoNebs and steroids. Patient is afebrile, has improved. We will hold on the antibiotics for now. Patient is requesting to see Dr. Sanford, who is her hand ironer whom she has seen in the past. Reports that she has not seen him since April. We will place a consult. 2. Chest x-ray, borderline cardiomegaly with a BNP of 1254, which is double what it was in September of this year. Lasix 20 mg daily will be started. Creatinine has bumped at 1.63, so we will monitor this and can change diuretics as tolerated. 3. Elevated LFTs. We will recheck this in the morning. Hold Librium and Zanaflex for now. 4. History of hypertension. We will restart home medications. 5. Patient reports some constipation. Reports that she has not had a good bowel movement in at least a week. Patient is on chronic hydrocodone, MiraLAX b.i.d. with Senokot S b.i.d. and can back off for these once she starts having regular bowel movements. 6. [id number] kidney injury, chronic kidney disease, stage 3. We will monitor, gently hydrate, recheck. 7. Case was discussed with Dr. Andrew, who recently discharged the patient. 8. Hospital course dependent on clinical findings. Job ID: [id number]
[2019-01-24] MEDS: methylPREDNISolone Sod Succ 40 MG VIAL IVP SCH ×2 (05:05→14:34)
[2019-01-24] MEDS: HYDROcodone/Acetaminophen 10/325 mg Tablet PO PRN ×2 (05:08→14:42)
[2019-01-24 05:24] LABS: #Lymphocytes 0.4 thou/uL (1.20-3.40); #Monocytes 0.1 thou/uL (0.11-0.59); #Neutrophils 3.2 thou/uL (1.40-6.50); %Eosinophils 0.2 % (0.0-10.0); %Lymphocytes 11.2 % (21.0-51.0); %Neutrophils 85.6 % (42.0-75.0); Hemoglobin 9.5 g/dL (12.0-16.0); Mean Corpuscular HGB CONC 32.7 g/dL (32.0-36.0); Mean Corpuscular Hemoglobin 30.3 pg (27.0-31.0); Mean Corpuscular Volume 92.6 fL (78.0-98.0); Mean Platelet Volume 9.1 fL (7.4-10.4); Platelet Count 135 thou/uL (130-400); Red Blood Cell (RBC) Count 3.12 mill/uL (4.20-5.40); White Blood Cell (WBC) Count 3.7 thou/uL (4.8-10.8)
[2019-01-24 05:43] LABS: ALT (SGPT) 114 U/L (8-55); AST (SGOT) 95 U/L (5-34); Albumin 3.5 g/dL (3.4-4.8); Alkaline Phosphatase 288 U/L (40-110); Anion Gap 14 mmol/L (10-20); BUN (Urea Nitrogen) 33 mg/dL (9.8-20.1); Bilirubin, Total 0.2 mg/dL (0.2-1.2); Calc. Creatinine Clearance 36 mL/min (70-130); Calcium 9.2 mg/dL (7.8-10.44); Carbon Dioxide 24 mmol/L (23-31); Chloride 101 mmol/L (98-107); Estimated GFR-MDRD 28; Globulin 3.3 g/dL (2.4-3.5); Glucose 202 mg/dL (80-115); Potassium 4.1 mmol/L (3.5-5.1); Protein, Total 6.8 g/dL (6.0-8.3); Sodium 135 mmol/L (136-145)
[2019-01-24] MEDS: Polyethylene Glycol 3350 17 GM Packet PO SCH ×2 (08:43→20:53)
[2019-01-24] MEDS: Cyanocobalamin (Vitamin B-12) 1,000 MCG TAB PO SCH (08:45)
[2019-01-24] MEDS: Senokot S 8.6-50 MG TAB PO SCH ×2 (08:45→20:53)
[2019-01-24] MEDS: Oxybutynin 5 MG TAB PO SCH ×2 (08:46→20:52)
[2019-01-24] MEDS: Montelukast Sodium 10 mg Tablet PO SCH (08:46)
[2019-01-24] MEDS: Aspirin 325 mg Enteric Coated Tablet PO SCH (08:46)
[2019-01-24] MEDS: Famotidine 20 MG TAB PO SCH (08:46)
[2019-01-24] MEDS: Atorvastatin Calcium 40 MG TAB PO SCH (08:46)
[2019-01-24] MEDS: Biotin [Biotin] 10,000 MCG PO SCH ×2 (08:52→20:52)
[2019-01-24] MEDS ORDERED: Furosemide 20 MG/2 ML VIAL SLOW IVP SCH (09:00)
[2019-01-24] MEDS ORDERED: guaiFENesin ER 600 MG TAB PO PRN (09:00)
[2019-01-24] MEDS ORDERED: Escitalopram Oxalate 20 mg Tablet PO SCH (09:00)
--- NOTE | 2019-01-24 10:27 | CON ---
DATE OF CONSULTATION: HISTORY OF PRESENT ILLNESS: Joseline Logan is a 63-year-old female, who sees Dr. Sanford, was in the hospital most recently, discharged. She presented with some kind of encephalopathy. She was seen by several different doctors. Pulmonary never saw the patient at that time. Carotid ultrasound showed calcification in the right carotid system. MRI showed multifocal watershed infarcts in the right hemisphere. She is not a candidate for any surgical intervention at that time. PAST MEDICAL HISTORY: COPD, substance abuse, encephalopathy, CVA, hypertension, lipidemia PAST SURGICAL HISTORY: Multiple; cholecystectomy, hysterectomy, knee surgery, spinal surgery, lumbar surgery, tonsillectomy, previous cath, bladder surgery, bilateral cataract surgery. SOCIAL HISTORY: Former smoker, quit smoking 10 years ago. HOME MEDICATIONS: Include; 1. B12. 2. Lipitor 40. 3. Ranitidine 75. 4. Singulair 10. 5. Metoprolol 50. 6. Hydroxyzine. 7. Chlorhexidine. ALLERGIES: MULTIPLE; SULFA, CLINDAMYCIN, METFORMIN, NAPROSYN, TRAMADOL. REVIEW OF SYSTEMS: Otherwise 10-point negative. PHYSICAL EXAMINATION: GENERAL: Morbidly obese female, who appears to be in no acute distress this morning. VITAL SIGNS: Saturations are 96% on room air, respiratory rate 18, temperature 97, pulse 95, blood pressure 132/61. CHEST: Decreased breath sounds. No wheezing. CARDIAC: Normal S1 and S2. No gallops. ABDOMEN: Soft. No masses. LABORATORY DATA: White count 3000, hemoglobin and hematocrit are 9 and 29. Creatinine 1.79. Lytes are normal. IMPRESSION: 1. Chronic obstructive pulmonary disease exacerbation. No evidence of PE. 2. Morbid obesity. 3. Polypharmacy. I do not see any reason for Lasix at this time. No evidence of CHF. She has azotemia. She needs PT. Can switch over to oral prednisone. Pulmonary to follow, notify Dr. Sanford. Consultation note 70 minutes, 50% direct patient care. Job ID: [id number]
[2019-01-24] MEDS ORDERED: hydrOXYzine 25 MG TAB PO PRN (15:20)
--- NOTE | 2019-01-24 15:40 | PDOC.HOSPP ---
- Subjective Encounter Date: 01/24/19 Encounter Time: 15:38 Subjective: Ms. Logan was seen today in follow-up of acute respiratory failure> She is breathing better. She does not have any complaints today. - Objective Vital Signs & Weight: Vital Signs (12 hours) Temp Pulse Resp BP Pulse Ox 01/24/19 14:41 62 16 99 01/24/19 12:00 98.1 F 87 18 131/86 96 01/24/19 08:00 97 01/24/19 07:24 98.0 F 95 18 132/61 97 01/24/19 06:26 87 14 98 01/24/19 04:00 97.9 F 89 16 125/60 96 Weight Weight 162 lb I&O: 01/23/19 01/24/19 01/25/19 06:59 06:59 06:59 Intake Total 840 Output Total 325 Balance 515 Result Diagrams: 01/24/19 04:42 01/24/19 04:42 Hospitalist ROS - Medication Medications: Active Medications Generic Name Dose Route Start Last Admin Trade Name Garyq PRN Reason Stop Dose Admin Albuterol/Ipratropium 3 ml 01/23/19 22:30 01/24/19 14:41 Duoneb NEB 3 ml [id number] GUILLE Administration Aspirin 325 mg 01/24/19 09:00 01/24/19 08:46 Ecotrin PO 325 mg DAILY GUILLE Administration Atorvastatin Calcium 40 mg 01/24/19 09:00 01/24/19 08:46 Lipitor PO 40 mg DAILY GUILLE Administration Cyanocobalamin 1,000 mcg 01/24/19 09:00 01/24/19 08:45 Vitamin B-12 PO 1,000 mcg DAILY GUILLE Administration Famotidine 20 mg 01/24/19 09:00 01/24/19 08:46 Pepcid PO 20 mg QAM GUILLE Administration Methylprednisolone Sodium Succinate 20 mg 01/24/19 06:00 01/24/19 14:34 Solu-Medrol IVP 20 mg Q8HR GUILLE Administration Metoprolol Succinate 50 mg 01/24/19 09:00 01/24/19 08:46 Toprol Xl PO 50 mg DAILY GUILLE Administration Montelukast Sodium 10 mg 01/24/19 09:00 01/24/19 08:46 Singulair PO 10 mg DAILY GUILLE Administration Oxybutynin Chloride 10 mg 01/24/19 09:00 01/24/19 08:46 Ditropan PO 10 mg BID GUILLE Administration Biotin [Biotin] 10, 0 each 01/24/19 09:00 01/24/19 08:52 000 Mcg PO Not Given BID [facility] Polyethylene Glycol 17 gm 01/24/19 09:00 01/24/19 08:43 Miralax PO 17 gm BID GUILLE Administration Senna/Docusate Sodium 2 tab 01/24/19 09:00 01/24/19 08:45 Senokot S PO 2 tab BID GUILLE Administration Sterile Water 1 ml 01/23/19 21:56 01/24/19 05:05 Bacteriostatic Water FS 1 ml PRN PRN Administration RECONSTITUTION - Exam Eye: PERRL, anicteric sclera Heart: RRR, no gallops, no rubs, normal peripheral pulses, murmur present, II/IV Respiratory: CTAB, no wheezes, no rales, no ronchi, normal chest expansion, no tachypnea, normal percussion Gastrointestinal: soft, non-tender, non-distended, normal bowel sounds, no palpable masses, no hepatomegaly, no splenomegaly Extremities: no cyanosis, no clubbing, no edema Hosp A/P (1) Acute respiratory failure with hypoxia Code(s): J96.01 - ACUTE RESPIRATORY FAILURE WITH HYPOXIA Status: Acute (2) Metabolic encephalopathy Code(s): G93.41 - METABOLIC ENCEPHALOPATHY Status: Acute (3) Dyslipidemia Code(s): E78.5 - HYPERLIPIDEMIA, UNSPECIFIED Status: Chronic (4) Generalized anxiety disorder Code(s): F41.1 - GENERALIZED ANXIETY DISORDER Status: Chronic (5) Hypertension Code(s): I10 - ESSENTIAL (PRIMARY) HYPERTENSION Status: Chronic Qualifiers: (6) Polypharmacy Code(s): Z79.899 - OTHER CUSTOMER SUCCESS REPRESENTATIVE (CURRENT) DRUG THERAPY Status: Chronic - Plan * Acute on chronic respiratory failure- improved- I suspect due to polypharmacy and respiratory depression due to this * Toxic metabolic encephalopathy- due to polypharmacy- patient's thought process is a bit cloudy. She has some difficulty staying on topic, and some answers to questions do not seem entirely appropriate- I suspect this will improve over the next few days * Polypharmacy- will need to degree the dose of sedating medications- will decrease Hydroxyzine to 25 mg q6 hrs as needed * Chronic pain ( she says due to back pain and osteoarthritis)- she has been on Hydrocodone for a number of years. We therefore can not abruptly discontinue it. Will decrease down to twice a day as needed * Depression- in the setting of chronic pain- will change her to Cymbalta- and discontinue Celexa. She denies any siucidal or homicidal ideation * COPD- stable- will rapidly johsua steroids * Re-evaluate in the AM
[2019-01-24] MEDS ORDERED: clonazePAM 1 MG TAB PO PRN (15:47)
[2019-01-24] MEDS ORDERED: hydrOXYzine Pamoate 25 mg Capsule PO SCH (17:00)
--- NOTE | 2019-01-24 17:22 | EKG ---
Test Reason : Blood Pressure : / mmHG Vent. Rate : 089 BPM Atrial Rate : 089 BPM P-R Int : 204 ms QRS Dur : 078 ms QT Int : 362 ms P-R-T Axes : 057 053 050 degrees QTc Int : 440 ms Normal sinus rhythm Normal ECG Confirmed by LENCHO FANG, CHADWICK ([id number]), rewrite editor MINNA MONTALVO ([id number]) on 01/24/2019 5:22:36 PM Referred By: Confirmed By:CHADWICK MUSA MD
[2019-01-24] MEDS ORDERED: DULoxetine 30 MG CAP PO SCH (18:00)
[2019-01-25] MEDS ORDERED: Enoxaparin Sodium 40 MG/0.4 ML SYRINGE SC SCH (09:00)
[2019-01-25] MEDS: Aspirin 325 mg Enteric Coated Tablet PO SCH (09:42)
[2019-01-25] MEDS: Atorvastatin Calcium 40 MG TAB PO SCH (09:42)
[2019-01-25] MEDS: Cyanocobalamin (Vitamin B-12) 1,000 MCG TAB PO SCH (09:43)
[2019-01-25] MEDS: Oxybutynin 5 MG TAB PO SCH ×2 (09:43→19:31)
[2019-01-25] MEDS: Montelukast Sodium 10 mg Tablet PO SCH (09:43)
[2019-01-25] MEDS: Famotidine 20 MG TAB PO SCH (09:43)
[2019-01-25] MEDS: predniSONE 20 MG TAB PO SCH (09:43)
[2019-01-25] MEDS: Senokot S 8.6-50 MG TAB PO SCH ×2 (09:43→19:31)
[2019-01-25] MEDS: Polyethylene Glycol 3350 17 GM Packet PO SCH ×2 (09:43→19:32)
[2019-01-25] MEDS: Biotin [Biotin] 10,000 MCG PO SCH ×2 (09:44→19:32)
[2019-01-25 09:48] LABS: AST (SGOT) 33 U/L (5-34); Albumin 3.5 g/dL (3.4-4.8); Alkaline Phosphatase 216 U/L (40-110); Anion Gap 15 mmol/L (10-20); BUN (Urea Nitrogen) 47 mg/dL (9.8-20.1); Bilirubin, Direct 0.1 mg/dL (0.1-0.3); Bilirubin, Total 0.2 mg/dL (0.2-1.2); Calc. Creatinine Clearance 36 mL/min (70-130); Calcium 9.5 mg/dL (7.8-10.44); Carbon Dioxide 25 mmol/L (23-31); Chloride 101 mmol/L (98-107); Estimated GFR-MDRD 28; Glucose 126 mg/dL (80-115); Potassium 4.7 mmol/L (3.5-5.1); Protein, Total 6.6 g/dL (6.0-8.3); Sodium 136 mmol/L (136-145)
[2019-01-25 09:52] LABS: ALT (SGPT) 74 U/L (8-55)
--- NOTE | 2019-01-25 10:16 | PRG ---
DATE OF SERVICE: 01/25/2019 SUBJECTIVE: Joseline Logan is much better, less short of breath. OBJECTIVE: VITAL SIGNS: Saturations on room air, temperature 97, pulse 85, respirations 16, blood pressure 150/78. CHEST: No wheezing. CARDIAC: Normal S1 and S2. No gallops. ABDOMEN: No mass. LABORATORY DATA: BNP is 610. Creatinine 1.82. IMPRESSION: Chronic obstructive pulmonary disease, respiratory failure, congestive heart failure, diastolic dysfunction. Pulmonary ellington, she is probably stable enough to be discharged home. Follow up with Dr. Sanford. Job ID: [id number]
--- NOTE | 2019-01-25 13:52 | PDOC.HOSPP ---
- Subjective Encounter Date: 01/25/19 Encounter Time: 13:51 Subjective: Ms. Logan was seen today in follow-up. She does not have any new complaints. She does not have any dyspnea. She appears to be mentally back to her baseline. - Objective Vital Signs & Weight: Vital Signs (12 hours) Temp Pulse Resp BP Pulse Ox 01/25/19 13:37 85 18 93 L 01/25/19 11:07 98.1 F 89 18 146/78 H 98 01/25/19 10:22 89 16 97 01/25/19 08:00 94 L 01/25/19 07:40 97.9 F 85 16 158/78 H 94 L 01/25/19 06:46 92 16 98 01/25/19 04:00 97.6 F 82 18 153/65 H 96 01/25/19 02:12 91 16 94 L Weight Weight 162 lb I&O: 01/24/19 01/25/19 01/26/19 06:59 06:59 06:59 Intake Total 840 720 Output Total 325 Balance 515 720 Result Diagrams: 01/24/19 04:42 01/25/19 09:05 Hospitalist ROS - Medication Medications: Active Medications Generic Name Dose Route Start Last Admin Trade Name Freq PRN Reason Stop Dose Admin Albuterol/Ipratropium 3 ml 01/23/19 22:30 01/25/19 13:37 Duoneb NEB 3 ml [id number] GUILLE Administration Aspirin 325 mg 01/24/19 09:00 01/25/19 09:42 Ecotrin PO 325 mg DAILY GUILLE Administration Atorvastatin Calcium 40 mg 01/24/19 09:00 01/25/19 09:42 Lipitor PO 40 mg DAILY GUILLE Administration Cyanocobalamin 1,000 mcg 01/24/19 09:00 01/25/19 09:43 Vitamin B-12 PO 1,000 mcg DAILY GUILLE Administration Famotidine 20 mg 01/24/19 09:00 01/25/19 09:43 Pepcid PO 20 mg QAM GUILLE Administration Hydroxyzine HCl 25 mg 01/24/19 15:20 01/24/19 21:37 Atarax PO 25 mg Q6H PRN Administration Anxiety/Agitation Metoprolol Succinate 50 mg 01/24/19 09:00 01/25/19 09:43 Toprol Xl PO 50 mg DAILY GUILLE Administration Montelukast Sodium 10 mg 01/24/19 09:00 01/25/19 09:43 Singulair PO 10 mg DAILY GUILLE Administration Oxybutynin Chloride 10 mg 01/24/19 09:00 01/25/19 09:43 Ditropan PO 10 mg BID GUILLE Administration Biotin [Biotin] 10, 0 each 01/24/19 09:00 01/25/19 09:44 000 Mcg PO 1 each BID GUILLE Administration Polyethylene Glycol 17 gm 01/24/19 09:00 01/25/19 09:43 Miralax PO 17 gm BID GUILLE Administration Prednisone 40 mg 01/25/19 08:00 01/25/19 09:43 Prednisone PO 40 mg QAM-WM GUILLE Administration Senna/Docusate Sodium 2 tab 01/24/19 09:00 01/25/19 09:43 Senokot S PO 2 tab BID GUILLE Administration Sterile Water 1 ml 01/23/19 21:56 01/24/19 05:05 Bacteriostatic Water FS 1 ml PRN PRN Administration RECONSTITUTION - Exam Eye: PERRL, anicteric sclera Heart: RRR, no murmur, no gallops, no rubs, normal peripheral pulses Respiratory: CTAB, no wheezes, no rales, no ronchi, normal chest expansion Gastrointestinal: soft, non-tender, non-distended, normal bowel sounds, no palpable masses Extremities: no cyanosis, no edema Hosp A/P (1) Acute respiratory failure with hypoxia Code(s): J96.01 - ACUTE RESPIRATORY FAILURE WITH HYPOXIA Status: Acute (2) Metabolic encephalopathy Code(s): G93.41 - METABOLIC ENCEPHALOPATHY Status: Acute (3) Dyslipidemia Code(s): E78.5 - HYPERLIPIDEMIA, UNSPECIFIED Status: Chronic (4) Generalized anxiety disorder Code(s): F41.1 - GENERALIZED ANXIETY DISORDER Status: Chronic (5) Hypertension Code(s): I10 - ESSENTIAL (PRIMARY) HYPERTENSION Status: Chronic Qualifiers: (6) Polypharmacy Code(s): Z79.899 - OTHER SHELTER (CURRENT) DRUG THERAPY Status: Chronic - Plan * Acute on chronic respiratory failure- improved- * Toxic metabolic encephalopathy- due to polypharmacy- improved- recommend continuing the lower frequency of Hydrocodone, and discontinue Librium, and replacing it with Klonopin. She tells me that I am NOT her doctor and she will not adhere to any medication changes that I make. * Depression- will continue Cymbalta * COPD- stable * She is stable for discharge home, * She had a slight elevation in her creatinine which may be due to diureses * Liver function tests are improving * She refuses to go home despite being medically cleared. She says she is not ready to go home yet.
[2019-01-25] MEDS: DULoxetine 30 MG CAP PO SCH (18:38)
[2019-01-26] MEDS: Cyanocobalamin (Vitamin B-12) 1,000 MCG TAB PO SCH (10:09)
[2019-01-26] MEDS: predniSONE 20 MG TAB PO SCH (10:10)
[2019-01-26] MEDS: Oxybutynin 5 MG TAB PO SCH ×2 (10:10→20:33)
[2019-01-26] MEDS: Atorvastatin Calcium 40 MG TAB PO SCH (10:11)
[2019-01-26] MEDS: Montelukast Sodium 10 mg Tablet PO SCH (10:11)
[2019-01-26] MEDS: Famotidine 20 MG TAB PO SCH (10:12)
[2019-01-26] MEDS: Aspirin 325 mg Enteric Coated Tablet PO SCH (10:12)
[2019-01-26] MEDS: Enoxaparin Sodium 30 MG/0.3 ML SYRINGE SC SCH (10:13)
[2019-01-26] MEDS: Polyethylene Glycol 3350 17 GM Packet PO SCH ×2 (10:15→20:34)
[2019-01-26] MEDS: Senokot S 8.6-50 MG TAB PO SCH ×2 (10:16→20:34)
--- NOTE | 2019-01-26 10:24 | PRG ---
DATE OF SERVICE: 01/26/2019 SUBJECTIVE: This morning, she is awake, alert, and responsive. She says she is weak. OBJECTIVE: VITAL SIGNS: Saturations are 90% on room air, respiratory rate 19, temperature 97, pulse 88, and blood pressure 150/76. CHEST: No wheezing. CARDIAC: Normal S1 and S2. ABDOMEN: No masses. IMPRESSION: Chronic obstructive pulmonary disease, stable. Severe deconditioning. PLAN: Pulmonary ellington, she can be discharged home any time. Follow up with her primary care physician and Dr. Sanford. Job ID: [id number]
[2019-01-26] MEDS: Biotin [Biotin] 10,000 MCG PO SCH ×2 (13:01→20:33)
--- NOTE | 2019-01-26 13:08 | PDOC.HOSPP ---
- Subjective Encounter Date: 01/26/19 Encounter Time: 13:06 Subjective: Ms. Logan was seen today in follow-up of metabolic encephalopathy. She says she is breathing better.She now complains of soime abdominal discomfort, and feels nauseated. - Objective Vital Signs & Weight: Vital Signs (12 hours) Temp Pulse Resp BP Pulse Ox 01/26/19 10:31 97 16 98 01/26/19 07:58 97.8 F 88 19 159/76 H 96 01/26/19 06:49 92 16 96 01/26/19 04:00 98.1 F 94 18 169/99 H 96 01/26/19 01:43 98 16 99 Weight Weight 162 lb I&O: 01/25/19 01/26/19 01/27/19 06:59 06:59 06:59 Intake Total 720 Balance 720 Result Diagrams: 01/24/19 04:42 01/25/19 09:05 Hospitalist ROS - Medication Medications: Active Medications Generic Name Dose Route Start Last Admin Trade Name Freq PRN Reason Stop Dose Admin Hydrocodone Bitart/Acetaminophen 1 tab 01/24/19 15:22 01/26/19 00:00 [place] 5/325 PO 1 tab BIDPRN PRN Administration Moderate Pain (4-6) Albuterol/Ipratropium 3 ml 01/23/19 22:30 01/26/19 10:31 Duoneb NEB 3 ml [id number] GUILLE Administration Aspirin 325 mg 01/24/19 09:00 01/26/19 10:12 Ecotrin PO 325 mg DAILY GUILLE Administration Atorvastatin Calcium 40 mg 01/24/19 09:00 01/26/19 10:11 Lipitor PO 40 mg DAILY GUILLE Administration Clonazepam 1 mg 01/24/19 15:47 01/25/19 19:34 Klonopin PO 1 mg TIDPRN PRN Administration Anxiety/Agitation Cyanocobalamin 1,000 mcg 01/24/19 09:00 01/26/19 10:09 Vitamin B-12 PO 1,000 mcg DAILY GUILLE Administration Duloxetine HCl 30 mg 01/25/19 18:00 01/25/19 18:38 Cymbalta PO Not Given 1800 GUILLE Enoxaparin Sodium 30 mg 01/26/19 09:00 01/26/19 10:13 Lovenox SC 30 mg 0900 GUILLE Administration Famotidine 20 mg 01/24/19 09:00 01/26/19 10:12 Pepcid PO 20 mg QAM GUILLE Administration Hydroxyzine HCl 25 mg 01/24/19 15:20 01/24/19 21:37 Atarax PO 25 mg Q6H PRN Administration Anxiety/Agitation Metoprolol Succinate 50 mg 01/24/19 09:00 01/26/19 10:12 Toprol Xl PO 50 mg DAILY GUILLE Administration Montelukast Sodium 10 mg 01/24/19 09:00 01/26/19 10:11 Singulair PO 10 mg DAILY GUILLE Administration Oxybutynin Chloride 10 mg 01/24/19 09:00 01/26/19 10:10 Ditropan PO 10 mg BID GUILLE Administration Biotin [Biotin] 10, 0 each 01/24/19 09:00 01/26/19 13:01 000 Mcg PO 1 each BID GUILLE Administration Polyethylene Glycol 17 gm 01/24/19 09:00 01/26/19 10:15 Miralax PO Not Given BID GUILLE Prednisone 40 mg 01/25/19 08:00 01/26/19 10:10 Prednisone PO 40 mg QAM-WM GUILLE Administration Senna/Docusate Sodium 2 tab 01/24/19 09:00 01/26/19 10:16 Senokot S PO Not Given BID GUILLE Sterile Water 1 ml 01/23/19 21:56 01/24/19 05:05 Bacteriostatic Water FS 1 ml PRN PRN Administration RECONSTITUTION - Exam Eye: PERRL Heart: RRR, no murmur, no gallops, no rubs, normal peripheral pulses Respiratory: CTAB, no wheezes, no rales, no ronchi, normal chest expansion, no tachypnea, normal percussion Gastrointestinal: soft, normal bowel sounds Extremities: no cyanosis, no clubbing, no edema Hosp A/P (1) Acute respiratory failure with hypoxia Code(s): J96.01 - ACUTE RESPIRATORY FAILURE WITH HYPOXIA Status: Acute (2) Metabolic encephalopathy Code(s): G93.41 - METABOLIC ENCEPHALOPATHY Status: Acute (3) Dyslipidemia Code(s): E78.5 - HYPERLIPIDEMIA, UNSPECIFIED Status: Chronic (4) Generalized anxiety disorder Code(s): F41.1 - GENERALIZED ANXIETY DISORDER Status: Chronic (5) Hypertension Code(s): I10 - ESSENTIAL (PRIMARY) HYPERTENSION Status: Chronic Qualifiers: (6) Polypharmacy Code(s): Z79.899 - OTHER CUSTODIAL (CURRENT) DRUG THERAPY Status: Chronic - Plan * Acute on chronic respiratory failure- improved- * Toxic metabolic encephalopathy- due to polypharmacy- I suspect she is close to her baseline- will continue on the current regimen for pain and anxiety and can try tappering these down after a day or so * COPD- stable * She is stable for discharge home, * She had a slight elevation in her creatinine which may be due to diureses * Liver function tests are improving * She continues to refuse to go home, and in fact she may not be safe to go home yet. I am concerned when she leaves the hospital she will return to taking the Librium and [place] as it was previously prescribed, and wind up in the same situation she was on admission. I feel she may benefit from a custodial stay, for continues medication management and titration prior to going home.
[2019-01-26] MEDS: HYDROcodone/Acetaminophen 5/325 mg Tablet PO PRN ×2 (13:11)
[2019-01-26] MEDS: DULoxetine 30 MG CAP PO SCH ×2 (17:33→17:41)
[2019-01-27] MEDS: HYDROcodone/Acetaminophen 5/325 mg Tablet PO PRN (05:00)
[2019-01-27] MEDS: Montelukast Sodium 10 mg Tablet PO SCH (08:50)
[2019-01-27] MEDS: Aspirin 325 mg Enteric Coated Tablet PO SCH (08:50)
[2019-01-27] MEDS: predniSONE 20 MG TAB PO SCH (08:50)
[2019-01-27] MEDS: Senokot S 8.6-50 MG TAB PO SCH (08:51)
[2019-01-27] MEDS: Oxybutynin 5 MG TAB PO SCH (08:51)
[2019-01-27] MEDS: Famotidine 20 MG TAB PO SCH (08:51)
[2019-01-27] MEDS: Cyanocobalamin (Vitamin B-12) 1,000 MCG TAB PO SCH (08:51)
[2019-01-27] MEDS: Atorvastatin Calcium 40 MG TAB PO SCH (08:51)
[2019-01-27] MEDS: Enoxaparin Sodium 30 MG/0.3 ML SYRINGE SC SCH (08:52)
[2019-01-27] MEDS: Biotin [Biotin] 10,000 MCG PO SCH (08:52)
--- NOTE | 2019-01-27 09:34 | PRG ---
DATE OF SERVICE: 01/27/2019 SUBJECTIVE: She is better this morning. She is trying to get into new unit. OBJECTIVE: VITAL SIGNS: Her saturations are 99% on room air, respiratory rate 17, temperature 98, pulse 69, blood pressure 166/71. CHEST: No wheezing or crackles. CARDIAC: Normal S1 and S2. No gallops. ABDOMEN: No masses. ASSESSMENT: Chronic obstructive pulmonary disease exacerbation, deconditioning, morbid obesity. PLAN: Taper steroids p.o. antibiotics. Follow up with Dr. Sanford. Job ID: [id number]
[2019-01-27] MEDS: Polyethylene Glycol 3350 17 GM Packet PO SCH (09:40)
[2019-01-27 12:26] VITALS: BP 175/75; TEMP 98.4
--- NOTE | 2019-01-27 12:54 | PDOC.HOSPP ---
- Subjective Encounter Date: 01/27/19 Encounter Time: 12:53 Subjective: Ms. Logan was seen today in follow-up metabolic encephalopathy. She does not have any complaints. - Objective Vital Signs & Weight: Vital Signs (12 hours) Temp Pulse Resp BP Pulse Ox 01/27/19 12:00 98.4 F 87 14 175/75 H 97 01/27/19 10:49 78 16 99 01/27/19 07:43 98 F 69 17 166/71 H 99 01/27/19 07:38 84 18 97 01/27/19 02:42 96 14 98 Weight Weight 162 lb I&O: 01/26/19 01/27/19 01/28/19 06:59 06:59 06:59 Intake Total 2100 Balance 2100 Result Diagrams: 01/24/19 04:42 01/25/19 09:05 Hospitalist ROS - Medication Medications: Active Medications Generic Name Dose Route Start Last Admin Trade Name Freq PRN Reason Stop Dose Admin Hydrocodone Bitart/Acetaminophen 1 tab 01/24/19 15:22 01/27/19 05:00 [place] 5/325 PO 1 tab BIDPRN PRN Administration Moderate Pain (4-6) Albuterol/Ipratropium 3 ml 01/23/19 22:30 01/27/19 10:49 Duoneb NEB 3 ml [id number] GUILLE Administration Aspirin 325 mg 01/24/19 09:00 01/27/19 08:50 Ecotrin PO 325 mg DAILY GUILLE Administration Atorvastatin Calcium 40 mg 01/24/19 09:00 01/27/19 08:51 Lipitor PO 40 mg DAILY GUILLE Administration Clonazepam 1 mg 01/24/19 15:47 01/25/19 19:34 Klonopin PO 1 mg TIDPRN PRN Administration Anxiety/Agitation Cyanocobalamin 1,000 mcg 01/24/19 09:00 01/27/19 08:51 Vitamin B-12 PO 1,000 mcg DAILY GUILLE Administration Duloxetine HCl 30 mg 01/25/19 18:00 01/26/19 17:41 Cymbalta PO Not Given 1800 GUILLE Enoxaparin Sodium 30 mg 01/26/19 09:00 01/27/19 08:52 Lovenox SC 30 mg 0900 GUILLE Administration Famotidine 20 mg 01/24/19 09:00 01/27/19 08:51 Pepcid PO 20 mg QAM GUILLE Administration Hydroxyzine HCl 25 mg 01/24/19 15:20 01/24/19 21:37 Atarax PO 25 mg Q6H PRN Administration Anxiety/Agitation Metoprolol Succinate 50 mg 01/24/19 09:00 01/27/19 08:51 Toprol Xl PO 50 mg DAILY GUILLE Administration Montelukast Sodium 10 mg 01/24/19 09:00 01/27/19 08:50 Singulair PO 10 mg DAILY GUILLE Administration Oxybutynin Chloride 10 mg 01/24/19 09:00 01/27/19 08:51 Ditropan PO 10 mg BID GUILLE Administration Biotin [Biotin] 10, 0 each 01/24/19 09:00 01/27/19 08:52 000 Mcg PO 1 each BID GUILLE Administration Polyethylene Glycol 17 gm 01/24/19 09:00 01/27/19 09:40 Miralax PO Not Given BID GUILLE Prednisone 40 mg 01/25/19 08:00 01/27/19 08:50 Prednisone PO 40 mg QAM-WM GUILLE Administration Senna/Docusate Sodium 2 tab 01/24/19 09:00 01/27/19 08:51 Senokot S PO Not Given BID GUILLE Sterile Water 1 ml 01/23/19 21:56 01/24/19 05:05 Bacteriostatic Water FS 1 ml PRN PRN Administration RECONSTITUTION - Exam Eye: PERRL, anicteric sclera Heart: RRR, no gallops, no rubs, normal peripheral pulses, murmur present ( radiating to the axilla and to the carotids), III/IV Respiratory: CTAB, no wheezes, no rales, no ronchi, normal chest expansion, no tachypnea, normal percussion Gastrointestinal: soft, non-tender, non-distended, normal bowel sounds, no palpable masses, no hepatomegaly, no splenomegaly, no bruit Extremities: no cyanosis, no clubbing, no edema Hosp A/P (1) Acute respiratory failure with hypoxia Code(s): J96.01 - ACUTE RESPIRATORY FAILURE WITH HYPOXIA Status: Acute (2) Metabolic encephalopathy Code(s): G93.41 - METABOLIC ENCEPHALOPATHY Status: Acute (3) Dyslipidemia Code(s): E78.5 - HYPERLIPIDEMIA, UNSPECIFIED Status: Chronic (4) Generalized anxiety disorder Code(s): F41.1 - GENERALIZED ANXIETY DISORDER Status: Chronic (5) Hypertension Code(s): I10 - ESSENTIAL (PRIMARY) HYPERTENSION Status: Chronic Qualifiers: (6) Polypharmacy Code(s): Z79.899 - OTHER MCC (CURRENT) DRUG THERAPY Status: Chronic - Plan * Acute on chronic respiratory failure- resolved * Toxic metabolic encephalopathy- due to polypharmacy- she has been stable on the medications changes, but she tells me that she does not plan to continue this once she leaves the hospital * She was not accepted to the group home facility * COPD- stable * She is stable for discharge home,
--- NOTE | 2019-01-27 22:30 | DIS ---
DATE OF ADMISSION: 01/23/2019 DATE OF DISCHARGE: 01/27/2019 PRIMARY CARE PHYSICIAN: Dr. Hernandez. DISCHARGE DISPOSITION: Home. DISCHARGE DIAGNOSES: 1. Acute on chronic respiratory failure with hypoxemia. 2. Metabolic encephalopathy. 3. Polypharmacy. 4. Hyperlipidemia. 5. Hypertension. 6. Chronic pain. DISCHARGE MEDICATIONS: Include: 1. Prednisone 40 mg daily. 2. Atarax was decreased to 25 mg q.6. 3. [place] was decreased to 5 mg twice a day as needed for pain. 4. Cymbalta was added 30 mg daily. 5. Klonopin 1 mg three times a day as needed was added. 6. Librium was discontinued. 7. Continue Lipitor 40 mg daily. 8. Aspirin 325 mg daily. 9. Norvasc 10 mg daily. 10. Ranitidine 75 mg daily. 11. Oxybutynin 10 mg twice a day. 12. Singulair 10 mg daily. 13. Metoprolol 50 mg extended release daily. 14. Guaifenesin 1200 mg twice a day. PROCEDURES DONE DURING THIS ADMISSION: The patient had a V/Q scan, which was low probability for PE. CODE STATUS: Full code. ALLERGIES: TO SULFAMETHOXAZOLE/TRIMETHOPRIM, CLINDAMYCIN, METFORMIN, NAPROSYN, AND TRAMADOL. HOSPITAL COURSE: Ms. Logan is a 63-year-old female, who was sent to the emergency room after she was lethargic and hypoxic at home. She was admitted with acute on chronic respiratory failure. This was likely as a result of polypharmacy. She also had acute increase in elevation of her liver function test, thought to be due to passive congestion. This was resolving during the time of the admission. She was seen by Dr. Hendricks, who was on-call for Dr. Sanford, her usual insights manager. He felt that her respiratory failure was likely due to COPD in conjunction with the polypharmacy. The patient has a long history of chronic pain, as well as anxiety. She has been on high doses of Librium, as well as hydrocodone and muscle relaxers. These were decreased during her hospital stay. The hydrocodone was decreased from 10-5 mg and the frequency was also decreased to twice a day as needed. She was taken off Librium due to the long half-life and was changed to Klonopin 3 times a day. She was taken off Celexa and changed to Cymbalta with hopes that this would help with chronic pain and was taken off tizanidine or the muscle relaxer. I discussed these changes with the patient and her mental status improved. However, the patient was not happy with the medication changes and says that she plans to talk to her primary doctors to have it switched back. An effort was made to try to place her in a fpc facility as her insight into her condition was very poor and my concern is that she will in fact go back to the heavily sedating medicines and possibly cause herself some type of physical harm unintentionally that is. However, she was not accepted to the fpc facility. Since she is alert and oriented and can make her own decisions and she lives independently, we had no other option but to discharge her home and hopes that she will comply to the medication changes. The patient also was wanting to stay in the hospital for prolonged periods of time and we had difficulty discharging her on each hospital stay. She is at higher risk for readmission and I expect that she likely will be readmitted very soon. Job ID: [id number]
== END 2019-01-27 15:27 | disposition home or self-care (01) ==
LOC: ERS 13:46 → T4-A 17:20 → INTOOBSV 17:20
PROVIDERS: ADMIT Internal Medicine; ATTEND Internal Medicine
DX: J96.21 Acute and chronic respiratory failure with hypoxia (principal); G93.41 Metabolic encephalopathy; I12.9 Hypertensive chronic kidney disease with stage 1 through stage 4 chronic kidney disease, or unspecified chronic kidney disease; N18.3 Chronic kidney disease, stage 3 (moderate); N17.9 Acute kidney failure, unspecified; E66.01 Morbid (severe) obesity due to excess calories; E78.5 Hyperlipidemia, unspecified; G89.29 Other chronic pain; F17.210 Nicotine dependence, cigarettes, uncomplicated; F41.9 Anxiety disorder, unspecified; J44.1 Chronic obstructive pulmonary disease with (acute) exacerbation; Z68.27 Body mass index [BMI] 27.0-27.9, adult; Z79.82 Long term (current) use of aspirin; Z79.899 Other long term (current) drug therapy; Z88.1 Allergy status to other antibiotic agents; Z88.2 Allergy status to sulfonamides; Z88.5 Allergy status to narcotic agent; Z88.8 Allergy status to other drugs, medicaments and biological substances
CPT/HCPCS: 51701; 71045; 78579; 80048; 80053 ×2; 80076; 82550; 82805; 83605; 83690; 83880 ×2; 84484; 85025 ×2; 85379; 87040; 87086; 93005; 94640 ×5; 94644; 96365; 96366; 96368; 96374; 96375; 97116; 97139 ×6; 99285; A9540; A9558; 36415; 81003; 81015; 96372; 96376; A4353; G0378; J1100; J1650; J1940; J1956; J2920; J3475; J7512; J7611; J7620

== ENCOUNTER 2019-02-18 12:51 | Inpatient (IN) | payer MEDICARE, MEDICAID ==
[~2019-02-18 12:51] MED LIST: ISOVUE-370 76%-LOCM 1 ML ONE
[2019-02-18 13:55] LABS: #Eosinphils 0.4 thou/uL (0.0-0.7); #Lymphocytes 2.2 thou/uL (1.20-3.40); #Monocytes 0.7 thou/uL (0.11-0.59); %Basophils 0.4 % (0.0-1.0); %Eosinophils 5.3 % (0.0-10.0); %Lymphocytes 29.8 % (21.0-51.0); %Monocytes 9.3 % (0.0-10.0); %Neutrophils 55.3 % (42.0-75.0); Hemoglobin 10.4 g/dL (12.0-16.0); Mean Corpuscular HGB CONC 33.4 g/dL (32.0-36.0); Mean Corpuscular Hemoglobin 30.9 pg (27.0-31.0); Mean Corpuscular Volume 92.6 fL (78.0-98.0); Mean Platelet Volume 9.1 fL (7.4-10.4); Platelet Count 163 thou/uL (130-400); RBC Distribution Width 13.3 % (11.5-14.5); Red Blood Cell (RBC) Count 3.36 mill/uL (4.20-5.40); White Blood Cell (WBC) Count 7.3 thou/uL (4.8-10.8)
[2019-02-18] MEDS ORDERED: Morphine 4 MG/ML VIAL ONE ×2 (14:02→18:00)
[2019-02-18] MEDS ORDERED: Ondansetron PF 4 MG/2 ML Vial ONE ×2 (14:02→18:00)
[2019-02-18 14:20] LABS: ALT (SGPT) 12 U/L (8-55); AST (SGOT) 17 U/L (5-34); Albumin 3.8 g/dL (3.4-4.8); Alkaline Phosphatase 101 U/L (40-110); Anion Gap 17 mmol/L (10-20); BUN (Urea Nitrogen) 25 mg/dL (9.8-20.1); Bilirubin, Total 0.3 mg/dL (0.2-1.2); Calc. Creatinine Clearance 0 mL/min (70-130); Carbon Dioxide 17 mmol/L (23-31); Chloride 108 mmol/L (98-107); Estimated GFR-MDRD 23; Glucose 84 mg/dL (80-115); Potassium 4.2 mmol/L (3.5-5.1); Protein, Total 6.8 g/dL (6.0-8.3); Sodium 138 mmol/L (136-145)
[2019-02-18 14:51] LABS: Bilirubin Negative (Negative); Blood, Urine Moderate (Negative); Glucose, Urine (Dipstick) Negative (Negative); Leukocyte Large (Negative); Nitrite Negative (Negative); Protein, Urine (Dipstick) 100 mg/dL (Neg-Trace); Urobilinogen 0.2 mg/dL (Less than 2)
[2019-02-18 14:54] LABS: Clarity Turbid (Clear)
[2019-02-18 15:02] LABS: WBC/HPF Greater Than 50 HPF (0-3)
[2019-02-18 15:03] LABS: Bacteria/HPF 3+ HPF (None Seen); Squamous Epithelial 0-3 HPF (0-3); Transitional Epithelial 0-3 HPF (None Seen)
[2019-02-18] MEDS ORDERED: cefTRIAXone\\ROCEPHIN 2 GM VIAL ONE (15:58)
--- NOTE | 2019-02-18 16:59 | CT ---
CT OF ABDOMEN AND PELVIS PERFORMED WITHOUT CONTRAST ENHANCEMENT: 02/18/19 HISTORY: Abdominal pain. History of cholecystectomy and total hysterectomy. Pain is described as right lower q uadrant. COMPARISON: A 09/20/17 study. The lung bases are clear of infiltrative process. The liver, spleen, and pancreas regions appear unremarkable. The gallbladder has been removed. The r ight and left adrenal glands are normal in appearance. Once again there is some mild dilatation of th e collecting systems and ureters. The bladder is not distended but does show some fat stranding surro unding the bladder. Patient reportedly had some type of injection. Changes could possibly be on the b asis of these injections or indicate a cystitis. The calcifications related to both renal pelvises ap pear to be related to vascular calcifications. There is no significant periaortic or mesenteric adeno marilyn. CT OF PELVIS PERFORMED WITHOUT CONTRAST ENHANCEMENT: Within the right lower quadrant there is some minimal distention to a fluid filled small bowel loop o f ileum. There is some fat stranding within the mesenteric fat in this and views on coronal image 72, there appears to be some narrowing related to both limbs of this loop of bowel. This would suggest t here is some type of adhesive band causing a mild degree of obstruction more of a closed loop type of obstruction. There is no significant dilatation of the proximal small bowel at this time. The append ix is difficult to definitely identify. I do not see any signs of appendicitis. There is some minimal free fluid within the pelvis. IMPRESSION: 1. Slightly dilated loop of small bowel with some associated mesenteric fat stranding in the rig ht lower quadrant of the abdomen. This is a more distal ileal bowel loop. Appears to represent a deve loping closed loop obstruction with some mild mesenteric edema. No pneumatosis of the bowel wall is s een but these findings could certainly explain patient's right lower quadrant pain. 2. Some very mild bilateral hydronephrosis with lateral wall thickening and perivesicular fat st randing which could be on the basis of patient's injections or be related to the cystitis. POS: [place]
[2019-02-18] MEDS ORDERED: Benzocaine 20% Spray 60 ML CAN ONE (18:00)
--- NOTE | 2019-02-18 18:03 | RAD ---
PORTABLE CHEST: 02/21/19 PORTABLE CHEST: 02/18/19 HISTORY: Right sided pain. Heart size is enlarged with atherosclerotic changes of the aorta. The lungs are clear of infiltrate. No signs of failure. No interval change since a 01/23/19 study. IMPRESSION: Mild cardiomegaly. POS: [facility]
--- NOTE | 2019-02-18 18:49 | RAD ---
KUB: 02/18/19 HISTORY: NG tube placement. Bowel gas pattern appears nonobstructed. The pelvis is not included on this film. NG tube is seen wit h the tip overlying the fundus region of the stomach. Postop cholecystectomy changes are present. IMPRESSION: NG tube in the fundus region of the stomach. POS: [facility]
[2019-02-18] MEDS ORDERED: Ondansetron PF 4 MG/2 ML Vial IVP PRN (19:50)
[2019-02-18] MEDS ORDERED: Acetaminophen 325 MG TAB PO PRN (19:50)
[2019-02-18] MEDS ORDERED: Ondansetron ODT 4 MG TAB SL PRN (19:50)
[2019-02-18] MEDS: Sodium Chloride 0.9% 1,000 ML IV SCH (21:10)
[2019-02-18] MEDS ORDERED: Ondansetron ODT 4 MG TAB PO PRN (21:39)
[2019-02-18] MEDS ORDERED: hydrALAZINE 20 MG/ML VIAL SLOW IVP PRN (21:39)
[2019-02-18] MEDS ORDERED: Acetaminophen 1,000 MG in Premix Bag 1 BAG IVPB PRN (21:43)
[2019-02-18] MEDS ORDERED: Morphine 2 MG/ML SYRINGE SLOW IVP PRN (21:43)
--- NOTE | 2019-02-18 22:37 | HP ---
HISTORY OF PRESENT ILLNESS: Joseline Logan is a 64-year-old female going through divorce, who lives with her [id number]. The patient began having abdominal pain, nausea, and vomiting. Reported to the emergency room today and CAT scan revealed changes consistent with possible early bowel obstruction. She has inflammatory changes in the right lower quadrant. She has had a past laparoscopic cholecystectomy and hysterectomy total abdominal. NG tube was placed. X-rays verified to be in good position. The patient is feeling somewhat better at this time. Last bowel movement was yesterday. The patient denies any prior history of inflammatory bowel disease, but was told at one time she did have an episode of colitis, perhaps diverticulitis. She reports having a colonoscopy in 1998. The patient was recently admitted and had a CT angiography, brain MRI, and carotid ultrasound. Carotid ultrasounds were normal. EEG is normal. Brain MRI, 01/17/2019, revealed multifocal punctate acute infarction in the watershed distribution involving the right cerebral hemisphere. At that time, patient had some mental status changes, but she states she has returned to normal. On 07/19/2017, patient had a Cardiolite stress test, EF 64%. Normal wall motion. No evidence for reversible ischemia. She had an echocardiogram, 01/18/2019, EF 55% to 60% with mild LVH, but no significant valvular disease. ALLERGIES: SULFA, CLINDAMYCIN, METFORMIN. SOCIAL HISTORY: Tobacco, one-half pack per day. Alcohol socially. MEDICATIONS: Tylenol, Lovenox, DuoNeb, amlodipine, aspirin, paroxetine, vitamin E, benzonatate, vitamin B12, hydrocodone p.r.n., metoprolol 50 mg daily, oxybutynin 10 mg b.i.d., Singulair, Librium 20 mg a day, Atarax 50 mg p.r.n., guaifenesin, Nexium. PAST SURGICAL HISTORY: Lumbar surgery, colonoscopy in , laparoscopic cholecystectomy, total abdominal hysterectomy, bilateral salpingo-oophorectomy. PAST MEDICAL HISTORY: 1. Stroke, incontinent of urine, uses at night and other occasions. 2. History of stroke as noted above. 3. COPD, recently hospitalized for COPD exacerbation, seen by Dr. Hendricks. 4. History of substance abuse. 5. Hyperlipidemia. 6. Bladder surgery, cataract surgery. PHYSICAL EXAMINATION: GENERAL: The patient is slow to speak, but communicates appropriately. VITAL SIGNS: 69 kg, 179/99, 63, 18. HEAD, EYES, EARS, NOSE, AND THROAT: Unremarkable. LUNGS: Clear to auscultation. No wheezing. CARDIAC: Regular rate and rhythm without murmur or gallop. ABDOMEN: Soft, mild tenderness. Diminished bowel sounds. NG tube in place. EXTREMITIES: Unremarkable. LABORATORY DATA: White count 7, hemoglobin 10.4. Basic metabolic profile normal. Baseline BUN and creatinine 25 and 2.17. GFR 23. ASSESSMENT/PLAN: 1. Chronic kidney disease, baseline. She is followed by Dr. Pride. 2. Chronic obstructive pulmonary disease. Seen Dr. Hendricks in the past. 3. Gastroesophageal reflux disease. 4. Tobacco abuse, ongoing. 5. History of substance abuse. 6. Small bowel obstruction by CAT scan. Obtain x-rays in the morning. Continue NG tube suction overnight. Small-bowel follow-through in the morning. Further treatment based on these findings and clinical course. 7. Recent stroke. Job ID: [id number]
[2019-02-18] MEDS: Morphine 4 MG/ML VIAL SLOW IVP PRN (23:11)
[2019-02-18] MEDS: Sodium Chloride 0.45% 1,000 ML IV SCH (23:15)
[2019-02-19] VITALS: BMI 29.3
[2019-02-19] MEDS: Lorazepam 2 MG/ML VIAL SLOW IVP PRN (00:53)
[2019-02-19 04:14] LABS: #Basophils 0.1 thou/uL (0.0-0.2); #Eosinphils 0.1 thou/uL (0.0-0.7); #Lymphocytes 1.3 thou/uL (1.20-3.40); #Monocytes 0.6 thou/uL (0.11-0.59); #Neutrophils 6.5 thou/uL (1.40-6.50); %Basophils 0.6 % (0.0-1.0); %Eosinophils 1.6 % (0.0-10.0); %Lymphocytes 15.1 % (21.0-51.0); %Monocytes 7.1 % (0.0-10.0); %Neutrophils 75.7 % (42.0-75.0); Hemoglobin 10.8 g/dL (12.0-16.0); Mean Corpuscular HGB CONC 32.2 g/dL (32.0-36.0); Mean Corpuscular Hemoglobin 30.2 pg (27.0-31.0); Mean Corpuscular Volume 93.9 fL (78.0-98.0); Mean Platelet Volume 9.1 fL (7.4-10.4); Platelet Count 181 thou/uL (130-400); RBC Distribution Width 13.4 % (11.5-14.5); Red Blood Cell (RBC) Count 3.57 mill/uL (4.20-5.40); White Blood Cell (WBC) Count 8.6 thou/uL (4.8-10.8)
[2019-02-19] MEDS: Sodium Chloride 0.45% 1,000 ML IV SCH ×3 (04:25→20:03)
[2019-02-19 04:45] LABS: Anion Gap 16 mmol/L (10-20); BUN (Urea Nitrogen) 20 mg/dL (9.8-20.1); Calc. Creatinine Clearance 34 mL/min (70-130); Carbon Dioxide 22 mmol/L (23-31); Chloride 107 mmol/L (98-107); Estimated GFR-MDRD 27; Glucose 92 mg/dL (80-115); Potassium 4.8 mmol/L (3.5-5.1); Sodium 140 mmol/L (136-145)
[2019-02-19] MEDS: Sodium Chloride 0.9% 1,000 ML IV SCH (05:58)
[2019-02-19] MEDS: Famotidine/PF 20 mg/2ml Vial SLOW IVP SCH (10:18)
--- NOTE | 2019-02-19 10:25 | RAD ---
TWO VIEW ABDOMEN: INDICATION: Small bowel obstruction, followup. FINDINGS: Referring to previous day's exam, enteric catheter remains at the proximal stomach. No evidence of b owel obstruction is demonstrated. There is moderate retained fecal material in the colon. Loops of air distended bowel are nondilated. IMPRESSION: No abnormal dilatation of bowel demonstrated. POS: [facility]
[2019-02-19] MEDS ORDERED: MD-Gastroview 120 ML BOT ONE (12:00)
[2019-02-19] MEDS: Morphine 4 MG/ML VIAL SLOW IVP PRN (15:26)
--- NOTE | 2019-02-19 21:08 | RAD ---
SMALL BOWEL FOLLOW THROUGH: HISTORY: Small bowel obstruction. FINDINGS: Films are obtained to eight hours and show persistent contrast still in the small bowel without contr ast within the colon. Small bowel loops do not appear significantly distended. IMPRESSION: Markedly delayed transit time through the small bowel. Films were obtained to eight hours and still d o not show contrast within the colon. I would suggest a follow-up kidneys, ureters, and bladder in e morning. POS: [facility]
[2019-02-19] MEDS: Enoxaparin Sodium 40 MG/0.4 ML SYRINGE SC SCH (21:13)
[2019-02-19] MEDS ORDERED: Meropenem 2 GM, Admixture Fee 1 EACH in Sodium Chloride 0.9% 100 ML IVPB SCH (22:30)
[2019-02-20] MEDS: Morphine 4 MG/ML VIAL SLOW IVP PRN (00:24)
--- NOTE | 2019-02-20 01:11 | PRG ---
DATE OF SERVICE: 02/19/2019 SUBJECTIVE: Ms. Logan has small bowel follow-through today. She has suffered nausea vomiting during the study, 99.7 degrees, 77, 154/76. She has not passed flatus or stool. The small bowel follow-through does not progress after more than 8 hours. NG tube output overnight was 150. OBJECTIVE: LUNGS: Clear to auscultation. CARDIAC: Regular rate and rhythm without murmur or gallop. ABDOMEN: Soft, mildly distended, mildly tympanitic. ASSESSMENT/PLAN: Bowel obstruction. We will repeat abdominal x-rays in the morning, but the patient will need a laparotomy and adhesiolysis. We will plan that for tomorrow. I have explained this to her. She consents. She understands risks and benefits. Job ID: [id number]
[2019-02-20] MEDS: Sodium Chloride 0.45% 1,000 ML IV SCH ×3 (02:32→14:35)
[2019-02-20] MEDS: Lorazepam 2 MG/ML VIAL SLOW IVP PRN (02:37)
[2019-02-20 04:05] LABS: #Basophils 0.1 thou/uL (0.0-0.2); #Eosinphils 0.2 thou/uL (0.0-0.7); #Lymphocytes 2.7 thou/uL (1.20-3.40); #Monocytes 1.2 thou/uL (0.11-0.59); #Neutrophils 6.2 thou/uL (1.40-6.50); %Basophils 0.9 % (0.0-1.0); %Eosinophils 1.7 % (0.0-10.0); %Lymphocytes 26.3 % (21.0-51.0); %Monocytes 11.3 % (0.0-10.0); %Neutrophils 59.8 % (42.0-75.0); Hemoglobin 11.2 g/dL (12.0-16.0); Mean Corpuscular HGB CONC 32.4 g/dL (32.0-36.0); Mean Corpuscular Hemoglobin 29.9 pg (27.0-31.0); Mean Corpuscular Volume 92.5 fL (78.0-98.0); Mean Platelet Volume 8.3 fL (7.4-10.4); Platelet Count 221 thou/uL (130-400); RBC Distribution Width 13.2 % (11.5-14.5); Red Blood Cell (RBC) Count 3.73 mill/uL (4.20-5.40); White Blood Cell (WBC) Count 10.4 thou/uL (4.8-10.8)
[2019-02-20 04:17] LABS: Anion Gap 9 mmol/L (10-20); BUN (Urea Nitrogen) 21 mg/dL (9.8-20.1); Calc. Creatinine Clearance 37 mL/min (70-130); Calcium 9.2 mg/dL (7.8-10.44); Carbon Dioxide 29 mmol/L (23-31); Chloride 104 mmol/L (98-107); Estimated GFR-MDRD 29; Glucose 86 mg/dL (80-115); Potassium 5.3 mmol/L (3.5-5.1); Sodium 137 mmol/L (136-145)
[2019-02-20] MEDS: Famotidine/PF 20 mg/2ml Vial SLOW IVP SCH (09:14)
[2019-02-20] MEDS ORDERED: Fentanyl 100 MCG/2 ML VIAL ONE (10:08)
[2019-02-20] MEDS ORDERED: Bupivacaine HCl 0.5%/Epinephrine 1:200,000/PF 30 ml Vial ONE (10:18)
[2019-02-20] MEDS ORDERED: Bupivacaine HCl 0.25%/Epi 0.0005/PF 10 ML VIAL FS ONE (10:18)
[2019-02-20] MEDS ORDERED: Ondansetron HCl/PF 4 MG/2 ML Vial IVP PRN (12:31)
[2019-02-20] MEDS ORDERED: Promethazine HCl 25 MG/ML VIAL IM PRN (12:31)
[2019-02-20] MEDS ORDERED: Acetaminophen 500 MG TAB PO PRN (12:54)
[2019-02-20] MEDS ORDERED: Ibuprofen 600 MG TAB PO PRN (12:54)
[2019-02-20] MEDS ORDERED: traMADol HCl 50 MG TAB PO PRN ×2 (12:54)
[2019-02-20] MEDS ORDERED: Benzonatate 100 MG CAP PO PRN (12:57)
[2019-02-20] MEDS ORDERED: hydrOXYzine 25 MG TAB PO PRN (12:57)
[2019-02-20] MEDS ORDERED: guaiFENesin ER 600 MG TAB PO PRN (12:57)
[2019-02-20] MEDS ORDERED: PHENYLEPHRINE-NS 100 MCG/ML 10 ML SYRINGE ONE (15:45)
[2019-02-20] MEDS ORDERED: Succinylcholine Chloride 20 MG/ML 10 ml SYRINGE FS ONE (15:45)
[2019-02-20] MEDS ORDERED: diphenhydrAMINE 50 MG/ML VIAL ONE (15:45)
[2019-02-20] MEDS ORDERED: Rocuronium Bromide 10 MG/ML (10ML VIAL) ONE (15:45)
[2019-02-20] MEDS ORDERED: PROPOFOL 200 MG/20 ML VIAL ONE (15:45)
[2019-02-20] MEDS ORDERED: Ondansetron PF 4 MG/2 ML Vial ONE (15:45)
[2019-02-20] MEDS ORDERED: ePHEDrine/0.9% NaCl/PF SYRINGE 50 mg/10 ml ONE (15:45)
--- NOTE | 2019-02-20 18:24 | OP ---
DATE OF PROCEDURE: 02/20/2019 PREOPERATIVE DIAGNOSES: Small-bowel obstruction secondary to adhesions, prior history of hysterectomy and laparoscopic cholecystectomy. PROCEDURES PERFORMED: Laparoscopic adhesiolysis, releasing the closed-loop obstruction of terminal ileum, bowel was ischemic, but pinked up and resection not required. ANESTHESIA: General, local 0.5% Marcaine with epinephrine 30 mL. Note, NG tube removed at the end of the operation. DESCRIPTION OF PROCEDURE: The patient was taken to the operating room, where under general anesthesia, Brock catheter was placed at the beginning of the procedure and removed at the end. Abdomen was prepared with ChloraPrep and draped in routine fashion. Local anesthetic 0.5% Marcaine with epinephrine was infiltrated in the skin and subcutaneous tissue at each port site. Total volume used. Left lateral subcostal incision was made. Pneumoperitoneum to 15 mmHg was obtained with a Veress needle, replaced with a 5 port, video laparoscope was inserted. Left lateral mid and left lateral lower quadrant incision made and 5 port was placed. Later in the operation, a more medial left subcostal incision was made, and another five port was placed. There was noted to be fluid in the abdominal cavity that was serous bloody in nature and it was evacuated. There was ischemic close loop of bowel in terminal ileum about 12 cm from the ileocecal valve. Careful adhesiolysis performed mobilizing the terminal ileum in order to visualize this process over the right colon, cecal area. Adhesive band to the lateral sidewall identified, taken down with the LigaSure. This released the closed-loop obstruction and bowel proximally was dilated, distally decompressed. To enable the entire operation, LigaSure was used to take down adhesions of omentum from the anterior abdominal wall inferiorly and able to visualization of the process AND to facilitate completion. Sponge and needle counts were correct. Pneumoperitoneum evacuated. All instruments were removed. All skin incisions were approximated with interrupted subdermal 4-0 Monocryl and Senatobia glue applied. The patient tolerated the procedure well. Job ID: [id number]
[2019-02-20] MEDS: Atorvastatin Calcium 20 MG TAB PO SCH (20:19)
[2019-02-20] MEDS: Enoxaparin Sodium 40 MG/0.4 ML SYRINGE SC SCH (20:19)
[2019-02-20] MEDS: Oxybutynin 5 MG TAB PO SCH (20:19)
[2019-02-20] MEDS: HYDROcodone/Acetaminophen 10/325 mg Tablet PO PRN (20:19)
[2019-02-20] MEDS: Ezetimibe 10 MG TAB PO SCH (20:19)
[2019-02-20] MEDS ORDERED: Sodium Chloride 0.9% 1,000 ML IV SCH (23:45)
[2019-02-21] MEDS: Sodium Chloride 0.45% 1,000 ML IV SCH ×3 (00:04→17:49)
[2019-02-21] MEDS: HYDROcodone/Acetaminophen 10/325 mg Tablet PO PRN (05:01)
--- NOTE | 2019-02-21 07:47 | CON ---
DATE OF CONSULTATION: 02/20/2019 CONSULTING PHYSICIAN: Dr. Marshall. REASON FOR CONSULTATION: Chronic kidney disease. REASON FOR ADMISSION: Not feeling well. HISTORY OF PRESENT ILLNESS: This is a 64-year-old female with history of CKD, hyperlipidemia, and COPD, came to the hospital with above complaints, being admitted, Nephrology consulted for kidney disease and care. No chest pain or palpitation. The patient is feeling better. PAST MEDICAL HISTORY: Positive for GERD, hyperlipidemia, ulcerative colitis, hypertension, COPD. PAST SURGICAL HISTORY: Cholecystectomy, hysterectomy, orthopedic surgeries, tonsillectomy, cardiac cath. HOME MEDICATIONS: Reviewed. ALLERGIES: TO MULTIPLE INCLUDING BACTRIM, CLINDAMYCIN, METFORMIN, NAPROXEN, TRAMADOL. SOCIAL HISTORY: Drinks almost everyday. Quit smoking few years back. FAMILY HISTORY: No history of kidney disease. REVIEW OF SYSTEMS: CONSTITUTIONAL: Negative for weight loss or gain, ability to conduct usual activities. SKIN: Negative for rash, itching. EYES: Negative for double vision, pain. ENT/MOUTH: Negative for nose bleeding, neck stiffness, pain, tenderness. CARDIOVASCULAR: Negative for palpitations, dyspnea on exertion, orthopnea. RESPIRATORY: Negative for shortness of breath, wheezing, cough, hemoptysis, fever or night sweats. GASTROINTESTINAL: Negative for poor appetite, abdominal pain, heartburn, nausea, vomiting, constipation, or diarrhea. GENITOURINARY: Negative for urgency, frequency, dysuria, nocturia. MUSCULOSKELETAL: Negative for pain, swelling. NEUROLOGIC/PSYCHIATRIC: Negative for anxiety, depression. ALLERGY/IMMUNOLOGIC: Negative for skin rash, bleeding tendency. Rest all negative. PHYSICAL EXAMINATION: GENERAL: This is an obese female, in no apparent distress. VITAL SIGNS: Temperature 98.5, pulse 71, respiratory rate 18, blood pressure 117/60. HEENT: Atraumatic, normocephalic. Oral mucosa is moist. NECK: Supple. CV: S1 and S2 heard, rate and rhythm regular. RESPIRATORY: Clear. GI: Abdomen is soft. MUSCULOSKELETAL: 1+ edema. DERMATOLOGIC: No skin rash. NEUROLOGIC: Alert and awake. PSYCHIATRIC: Normal mood and affect. LABORATORY DATA: Hemoglobin is 11.2, potassium 5.3, BUN is 21. Creatinine is 1.7 from 2.1 on admission. Baseline creatinine is around 1.3 to 1.7. ASSESSMENT AND PLAN: 1. Acute kidney injury on chronic kidney disease, stage 4. Stable creatinine. 2. Hyperkalemia. Limit potassium intake. 3. Acidosis. We will monitor. 4. Mild anemia. 5. History of hypertension. 6. Edema, controlled. 7. Pyuria. Follow up with cultures. 8. Renal function seems to be better. We will monitor. Avoid nephrotoxins. Medication list reviewed. We will continue to follow the case with you. Job ID: [id number]
[2019-02-21] MEDS: Escitalopram Oxalate 20 mg Tablet PO SCH (08:21)
[2019-02-21] MEDS: Oxybutynin 5 MG TAB PO SCH ×2 (08:21→21:06)
[2019-02-21] MEDS: Montelukast Sodium 10 mg Tablet PO SCH (08:21)
[2019-02-21] MEDS: pyridOXINE 50 MG (B6) TAB PO SCH (08:22)
[2019-02-21] MEDS: Amlodipine 10 MG TAB PO SCH (08:22)
[2019-02-21] MEDS: Aspirin 325 mg Enteric Coated Tablet PO SCH (08:23)
[2019-02-21] MEDS: Cyanocobalamin (Vitamin B-12) 1,000 MCG TAB PO SCH (08:23)
[2019-02-21 09:51] LABS: Anion Gap 12 mmol/L (10-20); BUN (Urea Nitrogen) 20 mg/dL (9.8-20.1); Calc. Creatinine Clearance 37 mL/min (70-130); Carbon Dioxide 21 mmol/L (23-31); Chloride 104 mmol/L (98-107); Estimated GFR-MDRD 30; Glucose 92 mg/dL (80-115); Sodium 133 mmol/L (136-145)
[2019-02-21 09:54] LABS: Band 1 % (5-11); Eosinophils 5 % (0-10); Hemoglobin 9.8 g/dL (12.0-16.0); Lymphocytes 31 % (21-51); MDiff Complete? YES; Mean Corpuscular HGB CONC 31.7 g/dL (32.0-36.0); Mean Corpuscular Hemoglobin 29.5 pg (27.0-31.0); Mean Corpuscular Volume 92.9 fL (78.0-98.0); Mean Platelet Volume 8.2 fL (7.4-10.4); Monocytes 8 % (0-10); Neutrophil 54 % (42-75); Platelet Count 166 thou/uL (130-400); Reactive Lymphocytes 1 % (0-10); Red Blood Cell (RBC) Count 3.32 mill/uL (4.20-5.40); White Blood Cell (WBC) Count 7.4 thou/uL (4.8-10.8)
[2019-02-21] MEDS ORDERED: HYDROcodone/Acetaminophen 7.5/325 mg Tablet PO PRN (10:29)
--- NOTE | 2019-02-21 10:43 | PRG ---
DATE OF SERVICE: 02/21/2019 SUBJECTIVE: Ms. Logan is doing well this morning. OBJECTIVE: VITAL SIGNS: She is afebrile. Her vital signs are stable. GI: Her abdomen is soft, minimally distended, but she does have occasional bowel sounds. Her wounds are healing well. ASSESSMENT: Postop day #1 laparoscopic lysis of adhesions. PLAN: Continue IV fluids due to her mild ATN. If she tolerates regular diet today and kidney function improve tomorrow, likely be ready for discharge home. Job ID: [id number]
--- NOTE | 2019-02-21 13:27 | PRG ---
DATE OF SERVICE: 02/21/2019 SUBJECTIVE: Patient was seen and examined at bedside and overnight events noted. Patient denies any shortness of breath or chest pain or palpitation. No history of nausea or vomiting or diarrhea or fever or chills or cramps. OBJECTIVE: GENERAL: This is a well-built female, in no apparent distress. VITAL SIGNS: Temperature 96, pulse 80, respiratory rate 16, blood pressure . HEENT: Atraumatic, normocephalic. Oral mucosa is moist NECK: Supple. CARDIOVASCULAR: S1, S2 heard. Rate and rhythm regular. RESPIRATORY: Clear to auscultation. GASTROINTESTINAL: Abdomen is soft. MUSCULOSKELETAL: No tenderness. No edema. DERMATOLOGIC: No skin rash. NEUROLOGIC: Alert and awake and oriented X3. No focal neurologic deficits. Moving all the extremities. PSYCHIATRIC: Mood and affect normal. LABORATORY DATA: Potassium 4.0, BUN is 20, and creatinine is 1.7. ASSESSMENT AND PLAN: 1. Acute kidney injury, stable. 2. Chronic kidney disease, stage 4. 3. Anemia. 4. Hypertension. 5. Edema, controlled. Labs are stable. Avoid nephrotoxins. 6. Hyperkalemia, better. Job ID: [id number]
--- NOTE | 2019-02-21 19:31 | PRG ---
DATE OF SERVICE: 02/21/2019 SUBJECTIVE: Joseline Logan was evaluated at her request. She is not having any respiratory issues. She had a laparoscopic lysis of adhesions. OBJECTIVE: VITAL SIGNS: She is afebrile. Heart rate 82, respiratory rate 16, oximetry is 94% to 98% on room air, blood pressure 107/55. LUNGS: Clear. HEART: Regular rhythm. ABDOMEN: Soft. LABORATORY DATA: White count 7.4, hemoglobin 9.8, platelets 166,000. Sodium 133, potassium 4, chloride 104, bicarb 21, BUN 20, creatinine 1.7. IMPRESSION AND PLAN: 1. Status post laparoscopic lysis of adhesions. 2. Prerenal azotemia on top of chronic kidney disease, it is improving. 3. Obesity. 4. Chronic obstructive pulmonary disease that has clinically been stable for quite some time. 5. History of daily heavy alcohol use in the past. I did not discuss her alcohol use this admission. 6. History of fairly generous alprazolam use in the past. History of liking being in the hospital in the past. I have known Ms. Logan for quite some time and she is very nice and cooperative, but my experience has been that she is always hesitant to go home. She is feeding with her at this time as well and told me today that she is not in a hurry to go home. She is ambulatory. Once she has returned a bowel function that can be documented, I would suggest that she could be discharged. Her chronic obstructive pulmonary disease is stable. Job ID: [id number]
[2019-02-21] MEDS: Atorvastatin Calcium 20 MG TAB PO SCH (21:06)
[2019-02-21] MEDS: Ezetimibe 10 MG TAB PO SCH (21:06)
[2019-02-21] MEDS: Enoxaparin Sodium 40 MG/0.4 ML SYRINGE SC SCH (21:07)
[2019-02-21] MEDS: HYDROcodone/Acetaminophen 7.5/325 mg Tablet PO PRN (21:16)
[2019-02-22] MEDS: Sodium Chloride 0.45% 1,000 ML IV SCH ×2 (04:36→17:04)
[2019-02-22 04:45] LABS: Anion Gap 12 mmol/L (10-20); BUN (Urea Nitrogen) 20 mg/dL (9.8-20.1); Calc. Creatinine Clearance 38 mL/min (70-130); Calcium 8.4 mg/dL (7.8-10.44); Carbon Dioxide 26 mmol/L (23-31); Chloride 105 mmol/L (98-107); Estimated GFR-MDRD 31; Glucose 94 mg/dL (80-115); Potassium 4.5 mmol/L (3.5-5.1); Sodium 138 mmol/L (136-145)
[2019-02-22] MEDS: HYDROcodone/Acetaminophen 7.5/325 mg Tablet PO PRN ×2 (04:55→20:50)
[2019-02-22] MEDS: Oxybutynin 5 MG TAB PO SCH ×2 (09:58→20:42)
[2019-02-22] MEDS: pyridOXINE 50 MG (B6) TAB PO SCH (09:58)
[2019-02-22] MEDS: Cyanocobalamin (Vitamin B-12) 1,000 MCG TAB PO SCH (09:59)
[2019-02-22] MEDS: Aspirin 325 mg Enteric Coated Tablet PO SCH (09:59)
[2019-02-22] MEDS: Amlodipine 10 MG TAB PO SCH ×2 (09:59→10:06)
[2019-02-22] MEDS: Montelukast Sodium 10 mg Tablet PO SCH (09:59)
[2019-02-22] MEDS: Escitalopram Oxalate 20 mg Tablet PO SCH (09:59)
[2019-02-22] MEDS ORDERED: Milk Of Magnesia 30 ML UDCUP PO SCH (10:12)
--- NOTE | 2019-02-22 10:27 | DIS ---
DATE OF ADMISSION: 02/18/2019 DATE OF DISCHARGE: 02/22/2019 ADMITTING DIAGNOSES: Small bowel obstruction, acute on chronic renal failure. DISCHARGE DIAGNOSES: Small bowel obstruction, acute on chronic renal failure. PROCEDURE PERFORMED: Laparoscopic lysis of adhesions by Dr. Marshall without complication. CONDITION AT DISCHARGE: Improved. HOSPITAL COURSE: Postop, the patient did well. She had single adhesion lysis. At the time of surgery, her ileus resolved almost immediately. On the day of discharge, she is tolerating regular diet. Her creatinine is back down towards baseline. Her pain is well controlled on the Ophelia. She has not had a bowel movement yet. Plan is to give her a dose of milk of magnesia and let her go home later on this afternoon. Job ID: [id number]
[2019-02-22] MEDS: Ondansetron PF 4 MG/2 ML Vial IVP PRN ×2 (10:56→17:35)
--- NOTE | 2019-02-22 12:45 | PRG ---
DATE OF SERVICE: 02/22/2019 SUBJECTIVE: A 64-year-old female is being seen for acute kidney injury. The patient denied nausea, vomiting, or chest pain. OBJECTIVE: GENERAL: The patient is awake and alert. VITAL SIGNS: Afebrile, pulse 75, breathing 16, blood pressure 135/66. GENERAL APPEARANCE AND MENTAL STATUS: Fair. HEAD/NECK: Normocephalic. Atraumatic. EYES: EOMI. No deformity. EARS: Clear. No ulcers. NOSE: Intact. No lesions. MOUTH: Clear. No discharge. THROAT: Clear. No exudate. LUNGS: Clear. No crackles. CARDIAC: S1, S2. No rub. ABDOMEN: Benign. Bowel sounds positive. GENITALIA/RECTUM: Brock absent. BACK/EXTREMITIES: Edema 0+. NEUROLOGICAL: Alert and motor intact. SKIN: LYMPHATICS: LABORATORY DATA: Lab reviewed. ASSESSMENT: 1. Chronic kidney disease, stage 3, stable. 2. Hypertension, stable. 3. Acute kidney injury, stable. 4. Hyperkalemia, stable. 5. No indication for dialysis. Job ID: [id number]
[2019-02-22] MEDS: Atorvastatin Calcium 20 MG TAB PO SCH (20:42)
[2019-02-22] MEDS: Ezetimibe 10 MG TAB PO SCH (20:42)
[2019-02-22] MEDS: Enoxaparin Sodium 40 MG/0.4 ML SYRINGE SC SCH (20:43)
[2019-02-23] MEDS ORDERED: Promethazine HCl 25 MG/ML VIAL IM PRN (00:35)
[2019-02-23] MEDS ORDERED: Famotidine 20 MG TAB PO SCH ×2 (00:45→21:00)
[2019-02-23] MEDS: Sodium Chloride 0.45% 1,000 ML IV SCH ×2 (00:47→14:37)
[2019-02-23] MEDS: pyridOXINE 50 MG (B6) TAB PO SCH (08:41)
[2019-02-23] MEDS: Cyanocobalamin (Vitamin B-12) 1,000 MCG TAB PO SCH (08:41)
[2019-02-23] MEDS: Oxybutynin 5 MG TAB PO SCH (08:42)
[2019-02-23] MEDS: Aspirin 325 mg Enteric Coated Tablet PO SCH (08:42)
[2019-02-23] MEDS: Escitalopram Oxalate 20 mg Tablet PO SCH (08:43)
[2019-02-23] MEDS: Montelukast Sodium 10 mg Tablet PO SCH (08:43)
[2019-02-23] MEDS: Amlodipine 10 MG TAB PO SCH (08:44)
--- NOTE | 2019-02-23 10:20 | PRG ---
DATE OF SERVICE: 02/23/2019 SUBJECTIVE: Ms. Logan had bowel movements this morning. She has been up since early this morning, having loose stools now due to the milk of magnesia. OBJECTIVE: VITAL SIGNS: She is afebrile. Vital signs are stable. ABDOMEN: Soft and nontender. Her wounds are healing well. She has active bowel sounds. ASSESSMENT: Postop lysis of adhesion. Ileus resolved. PLAN: Discharge home today. Job ID: [id number]
--- NOTE | 2019-02-23 11:45 | PRG ---
DATE OF SERVICE: 02/23/2019 SUBJECTIVE: A 64-year-old female, being seen for acute kidney injury. The patient denied nausea, vomiting, or chest pain OBJECTIVE: GENERAL: The patient is awake and alert. VITAL SIGNS: Pulse 75, breathing 16, blood pressure 104/63. GENERAL APPEARANCE AND MENTAL STATUS: Fair. HEAD/NECK: Normocephalic. Atraumatic. EYES: EOMI. No deformity. EARS: Clear. No ulcers. NOSE: Intact. No lesions. MOUTH: Clear. No discharge. THROAT: Clear. No exudate. LUNGS: Clear. No crackles. CARDIAC: S1, S2. No rub. ABDOMEN: Benign. Bowel sounds positive. GENITALIA/RECTUM: Brock absent. BACK/EXTREMITIES: Edema 0+. NEUROLOGICAL: Alert and motor intact. SKIN: LYMPHATICS: LABORATORY DATA: Labs reviewed. ASSESSMENT: 1. Chronic kidney disease, stage 3, stable. 2. Hypertension, stable. 3. Anemia, stable. 4. Acute kidney injury due to acute tubular necrosis, improved. Job ID: [id number]
[2019-02-23 12:01] LABS: Anion Gap 11 mmol/L (10-20); BUN (Urea Nitrogen) 16 mg/dL (9.8-20.1); Calc. Creatinine Clearance 40 mL/min (70-130); Carbon Dioxide 24 mmol/L (23-31); Chloride 105 mmol/L (98-107); Estimated GFR-MDRD 32; Potassium 4.3 mmol/L (3.5-5.1); Sodium 136 mmol/L (136-145)
[2019-02-23 12:02] LABS: Glucose 134 mg/dL (80-115)
[2019-02-23] MEDS: HYDROcodone/Acetaminophen 7.5/325 mg Tablet PO PRN (13:06)
[2019-02-23 15:37] VITALS: BP 124/67; TEMP 98.8
== END 2019-02-23 15:45 | disposition home or self-care (01) | DRG 335 ==
LOC: ERS 12:51 → SURG B 19:49
PROVIDERS: ADMIT Specialist; ATTEND Specialist
PROC: 0DNB4ZZ Release Ileum, Percutaneous Endoscopic Approach (ICD-10-PCS; principal; 2019-02-20)
DX: K56.50 Intestinal adhesions [bands], unspecified as to partial versus complete obstruction (principal); N17.0 Acute kidney failure with tubular necrosis; N18.4 Chronic kidney disease, stage 4 (severe); E87.2 Acidosis; K21.9 Gastro-esophageal reflux disease without esophagitis; E78.5 Hyperlipidemia, unspecified; E78.00 Pure hypercholesterolemia, unspecified; J44.9 Chronic obstructive pulmonary disease, unspecified; M19.90 Unspecified osteoarthritis, unspecified site; E66.9 Obesity, unspecified; F41.9 Anxiety disorder, unspecified; I12.9 Hypertensive chronic kidney disease with stage 1 through stage 4 chronic kidney disease, or unspecified chronic kidney disease; F32.9 Major depressive disorder, single episode, unspecified; E87.5 Hyperkalemia; D63.1 Anemia in chronic kidney disease; R82.81 Pyuria; K56.7 Ileus, unspecified; Z90.49 Acquired absence of other specified parts of digestive tract; Z90.710 Acquired absence of both cervix and uterus; Z87.891 Personal history of nicotine dependence; Z88.1 Allergy status to other antibiotic agents; Z88.2 Allergy status to sulfonamides; Z88.5 Allergy status to narcotic agent; Z88.8 Allergy status to other drugs, medicaments and biological substances; Z86.73 Personal history of transient ischemic attack (TIA), and cerebral infarction without residual deficits; Z68.29 Body mass index [BMI] 29.0-29.9, adult
CPT/HCPCS: 36415; 71045; 74018; 74019; 74176; 74250; 80048; 80053; 81003; 81015; 85025; 86850; 86900; 86901; 93005; 94640; J0131; J0360; J0670; J0696; J1200; J1650; J2060; J2270; J2405; J2550; J2704; J3010; J7620; Q9963; Q9966; S0028

== ENCOUNTER 2019-03-06 15:33 | Inpatient (IN) | payer MEDICARE, MEDICAID ==
--- NOTE | 2019-03-06 16:12 | RAD ---
RADIOGRAPH CHEST 1 VIEW: DATE: 03/06/2019 TIME: 3:44 PM HISTORY: 64-year-old female with dyspnea COMPARISON: 03/08/2019 FINDINGS: There is a new finding of diffuse mild bilateral interstitial densities, especially at the lower lung zones. Cardiac size at upper limits of normal. No pneumothorax. No effacement of lateral costophrenic angles. IMPRESSION: Bilateral interstitial densities which may represent pulmonary interstitial edema. Recommend follow-u p.
[2019-03-06 16:33] LABS: #Basophils 0.1 thou/uL (0.0-0.2); #Lymphocytes 1.1 thou/uL (1.20-3.40); #Monocytes 0.8 thou/uL (0.11-0.59); #Neutrophils 12.8 thou/uL (1.40-6.50); %Basophils 0.4 % (0.0-1.0); %Eosinophils 0.1 % (0.0-10.0); %Lymphocytes 7.7 % (21.0-51.0); %Monocytes 5.1 % (0.0-10.0); %Neutrophils 86.6 % (42.0-75.0); Hemoglobin 10.7 g/dL (12.0-16.0); Mean Corpuscular Hemoglobin 30.5 pg (27.0-31.0); Mean Corpuscular Volume 92.6 fL (78.0-98.0); Mean Platelet Volume 8.4 fL (7.4-10.4); Platelet Count 210 thou/uL (130-400); RBC Distribution Width 12.7 % (11.5-14.5); Red Blood Cell (RBC) Count 3.51 mill/uL (4.20-5.40); White Blood Cell (WBC) Count 14.8 thou/uL (4.8-10.8)
[2019-03-06 16:55] LABS: ALT (SGPT) 13 U/L (8-55); AST (SGOT) 20 U/L (5-34); Albumin 3.6 g/dL (3.4-4.8); Alkaline Phosphatase 121 U/L (40-110); Anion Gap 14 mmol/L (10-20); BUN (Urea Nitrogen) 20 mg/dL (9.8-20.1); Bilirubin, Total 0.7 mg/dL (0.2-1.2); CK (CPK) 33 U/L (29-168); Calc. Creatinine Clearance 0 mL/min (70-130); Calcium 8.7 mg/dL (7.8-10.44); Carbon Dioxide 22 mmol/L (23-31); Chloride 107 mmol/L (98-107); Estimated GFR-MDRD 30; Glucose 116 mg/dL (80-115); Protein, Total 6.6 g/dL (6.0-8.3); Sodium 139 mmol/L (136-145)
[2019-03-06] MEDS ORDERED: Furosemide 40 MG/4 ML VIAL ONE (18:16)
[2019-03-06 20:16] LABS: Troponin I 0.018 ng/mL (< 0.028)
[2019-03-06] MEDS ORDERED: HYDROcodone/Acetaminophen 10/325 mg Tablet PO PRN (21:22)
[2019-03-06] MEDS ORDERED: Loperamide HCl 2 MG CAP PO PRN (21:51)
[2019-03-06] MEDS ORDERED: Acetaminophen 325 MG TAB PO PRN (21:51)
[2019-03-06] MEDS ORDERED: Dextrose 5% in Water 1,000 ML IV PRN (21:51)
[2019-03-06] MEDS ORDERED: Dextrose 50% Abboject 50 ML SYRINGE SLOW IVP PRN (21:51)
[2019-03-06] MEDS ORDERED: HumaLOG 300 UNITS/3 ML VIAL SC PRN (21:51)
[2019-03-06] MEDS ORDERED: Oxybutynin 5 MG TAB PO SCH (22:30)
[2019-03-06] MEDS ORDERED: Simvastatin 40 MG TAB PO SCH (22:30)
[2019-03-06] MEDS ORDERED: Furosemide 40 MG TAB PO SCH (22:30)
[2019-03-06] MEDS ORDERED: Ezetimibe 10 MG TAB PO SCH (22:30)
--- NOTE | 2019-03-06 22:37 | HP ---
PRESENTING COMPLAINT: Shortness of breath. HISTORY OF PRESENTING COMPLAINT: Ms. Joseline Logan is a 64-year-old female with past medical history of COPD, hypertension, CKD stage 3, baseline creatinine of 1.7 to 1.8 who developed sudden onset wheezing with shortness of breath today. She denies any cough or sputum. She admits to fever and body aches. She has taken multiple doses of nebulizer with no significant relief. On presentation to the ED, she was given DuoNeb with improvement in her symptoms. She tolerated p.o. now and feels much better. PAST MEDICAL HISTORY: Significant for hypertension, CKD, history of previous pneumonia, history of COPD, history of obesity, history of diet-controlled diabetes mellitus. PAST SURGICAL HISTORY: Includes recent laparoscopic resection for intestinal obstruction due to adhesions. Prior history of hysterectomy. History of back surgery. History of bladder repair/bladder lift. FAMILY HISTORY: Noncontributory. The patient denies any history of cancer or CAD. SOCIAL HISTORY: She admits to 5 cigarettes per day use. Denies any alcohol or illicit drug use. She resides in community with the family. REVIEW OF SYSTEMS: All systems review x14 were negative except as mentioned above. HOME MEDICATIONS: Awaiting medication verification by staff that includes from ER record, 1. Lexapro. 2. Hydroxyzine. 3. Metoprolol. 4. ProAir. 5. Ione. 6. Losartan. 7. Amitriptyline. 8. DuoNeb. 9. Tizanidine. PHYSICAL EXAMINATION: CURRENT VITAL SIGNS: Blood pressure of 146/79, pulse of 85, respiratory rate of 20, O2 sat of 92% on room air. GENERAL: Middle-aged female, average built, not in any distress on room air. HEAD: Atraumatic and normocephalic. Pupils are equal and reactive to light. NECK: No JVD. No carotid bruits. RESPIRATORY: Good air entry bilaterally. No crepitations are elicited, wheezing or rhonchi. CARDIOVASCULAR: S1 and S2. Rate and rhythm regular. GI: Abdomen is full, soft, nontender. Healing lap scars from recent surgery. EXTREMITIES: No pedal edema. No calf tenderness. NEUROLOGIC: The patient is alert, oriented. Cranial nerves 2 through 12 grossly intact. LABORATORY DATA: Sodium 139, potassium 4, creatinine 1.7. AST, ALT normal. Alkaline phosphatase mildly elevated at 121. CK 33. BNP of 2106. Albumin 3.6. WBC 14.8, hemoglobin 10.7, platelet 210, neutrophils of 86%. Chest x-ray shows mild pulmonary congestive changes, unclear right infiltrates. IMPRESSION: 1. Presumed acute on chronic diastolic dysfunction. 2. Hypertension. 3. History of chronic obstructive pulmonary disease. 4. Chronic kidney disease. 5. History of chronic tobacco use. PLAN: 1. We will admit the patient to observation. We will obtain echocardiogram to assess ejection fraction. Continue diuresis with Lasix. We will monitor intake and output as well as daily weight. No need for antibiotics, were not given, likely CHF exacerbation. 2. Hypertension. Continue Toprol and losartan. Follow with diuresis. Monitor potassium and magnesium levels. 3. DVT prophylaxis, subcutaneous Lovenox. 4. Advanced directives. The patient is a full code. 5. We will place the patient on nicotine patch. ADDENDUM: Further records obtained and reviewed. Echocardiogram from 01/18/2019 with EF of 55% to 60% with left ventricular wall thickness , moderate annular calcification, and mild tricuspid regurgitation. Total time spent on review of record, discussion with patient, and evaluation greater than 60 minutes. Job ID: [id number]
[2019-03-06] MEDS: Nicotine 14 MG PATCH TD SCH (22:42)
[2019-03-07 04:47] LABS: #Lymphocytes 0.7 thou/uL (1.20-3.40); #Monocytes 0.2 thou/uL (0.11-0.59); #Neutrophils 4.1 thou/uL (1.40-6.50); %Basophils 0.1 % (0.0-1.0); %Eosinophils 0.2 % (0.0-10.0); %Lymphocytes 13.3 % (21.0-51.0); %Monocytes 3.8 % (0.0-10.0); %Neutrophils 82.5 % (42.0-75.0); Hemoglobin 9.3 g/dL (12.0-16.0); Mean Corpuscular HGB CONC 33.4 g/dL (32.0-36.0); Mean Corpuscular Hemoglobin 30.7 pg (27.0-31.0); Mean Corpuscular Volume 91.9 fL (78.0-98.0); Mean Platelet Volume 8.8 fL (7.4-10.4); Platelet Count 207 thou/uL (130-400); RBC Distribution Width 12.8 % (11.5-14.5); Red Blood Cell (RBC) Count 3.04 mill/uL (4.20-5.40)
[2019-03-07 05:09] LABS: Anion Gap 16 mmol/L (10-20); BUN (Urea Nitrogen) 27 mg/dL (9.8-20.1); Calc. Creatinine Clearance 32 mL/min (70-130); Calcium 8.9 mg/dL (7.8-10.44); Carbon Dioxide 22 mmol/L (23-31); Chloride 103 mmol/L (98-107); Estimated GFR-MDRD 25; Glucose 195 mg/dL (80-115); Magnesium 1.5 mg/dL (1.6-2.6); Potassium 4.2 mmol/L (3.5-5.1); Sodium 137 mmol/L (136-145)
[2019-03-07] MEDS ORDERED: Carvedilol 3.125 MG TAB PO SCH (08:00)
[2019-03-07] MEDS: pyridOXINE 50 MG (B6) TAB PO SCH (08:56)
[2019-03-07] MEDS: Famotidine 20 MG TAB PO SCH (08:57)
[2019-03-07] MEDS: Aspirin 325 mg Enteric Coated Tablet PO SCH (08:57)
[2019-03-07] MEDS: Oxybutynin 5 MG TAB PO SCH ×2 (08:57→20:04)
[2019-03-07] MEDS: Escitalopram Oxalate 20 mg Tablet PO SCH (08:57)
[2019-03-07] MEDS: Furosemide 40 MG TAB PO SCH ×2 (08:57→14:50)
[2019-03-07] MEDS: Montelukast Sodium 10 mg Tablet PO SCH (08:58)
[2019-03-07] MEDS ORDERED: tiZANidine HCl 4 MG TAB PO PRN ×2 (09:00→11:14)
[2019-03-07] MEDS ORDERED: Enoxaparin Sodium 40 MG/0.4 ML SYRINGE SC SCH (09:00)
--- NOTE | 2019-03-07 11:06 | PDOC.HOSPP ---
- Subjective Encounter Date: 03/07/19 Encounter Time: 11:01 Subjective: Ms. Logan was seen today in follow-up of volume overload. She is breathing better, but says she is still fatigued. - Objective Vital Signs & Weight: Vital Signs (12 hours) Temp Pulse Resp BP Pulse Ox 03/07/19 07:39 98.3 F 72 18 139/71 95 03/07/19 04:47 97.7 F 70 14 165/74 H 94 L Weight Weight 161 lb 4.8 oz I&O: 03/06/19 03/07/19 03/08/19 06:59 06:59 06:59 Intake Total 400 Output Total 300 Balance 100 Result Diagrams: 03/07/19 04:36 03/07/19 04:36 Hospitalist ROS - Medication Medications: Active Medications Generic Name Dose Route Start Last Admin Trade Name Freq PRN Reason Stop Dose Admin Hydrocodone Bitart/Acetaminophen 1 tab 03/06/19 21:22 03/06/19 22:31 [place] 10/325 PO 1 tab Q4H PRN Administration PAIN Aspirin 325 mg 03/07/19 09:00 03/07/19 08:57 Ecotrin PO 325 mg DAILY GU[facility]LE Administration Carvedilol 3.125 mg 03/07/19 08:00 03/07/19 08:56 Coreg PO 3.125 mg BID-WM GU[facility]LE Administration Enoxaparin Sodium 40 mg 03/07/19 09:00 03/07/19 08:57 Lovenox SC 40 mg 0900 [facility] Administration Escitalopram Oxalate 20 mg 03/07/19 09:00 03/07/19 08:57 Lexapro PO 20 mg DAILY [facility] Administration Famotidine 20 mg 03/07/19 09:00 03/07/19 08:57 Pepcid PO Not Given DAILY [facility] Furosemide 40 mg 03/07/19 09:00 03/07/19 08:57 Lasix PO 40 mg 0900,1400 [facility] Administration Montelukast Sodium 10 mg 03/07/19 09:00 03/07/19 08:58 Singulair PO 10 mg DAILY [facility] Administration Nicotine 14 mg 03/06/19 22:30 03/06/19 22:42 Nicoderm Patch TD 14 mg Q24HR [facility] Administration Oxybutynin Chloride 10 mg 03/07/19 09:00 03/07/19 08:57 Ditropan PO 10 mg BID [facility] Administration Pantoprazole Sodium 40 mg 03/07/19 09:00 03/07/19 08:58 Protonix PO 40 mg DAILY [facility] Administration Pyridoxine HCl 100 mg 03/07/19 09:00 03/07/19 08:56 Vitamin B 6 PO 100 mg DAILY [facility] Administration Vitamin E 600 units 03/07/19 09:00 03/07/19 08:56 Vitamin E PO 600 units DAILY [facility] Administration - Exam Eye: PERRL Heart: RRR, no murmur, no gallops, no rubs, normal peripheral pulses Respiratory: rales, wheezes (Clear with the exception of some scattered wheezing and rales- but very minimal) Gastrointestinal: soft, non-tender, non-distended, normal bowel sounds, no palpable masses, no hepatomegaly Extremities: no cyanosis, no edema Hosp A/P (1) Acute respiratory failure with hypoxia Code(s): J96.01 - ACUTE RESPIRATORY FAILURE WITH HYPOXIA Status: Acute (2) COPD (chronic obstructive pulmonary disease) Status: Chronic Qualifiers: (3) Generalized anxiety disorder Code(s): F41.1 - GENERALIZED ANXIETY DISORDER Status: Chronic (4) Hypertension Code(s): I10 - ESSENTIAL (PRIMARY) HYPERTENSION Status: Chronic Qualifiers: - Plan * Acute on chronic respiratory failure with hypoxemia- due to volume overload and COPD * Continue to diurese * HTN- blood pressure is stable * Generalized anxiety- she was admitted to the hospital about a month ago with polypharmacy and oversedation, will discontinue Librium, and decrease the frequency of [place]. She was stable on this regimen, and did not exhibit any withdrawal symptoms * COPD- continue Duonebs as scheduled- she does not appear to have an exacerbation at this time
[2019-03-07 12:35] LABS: Anion Gap 15 mmol/L (10-20); BUN (Urea Nitrogen) 30 mg/dL (9.8-20.1); Calc. Creatinine Clearance 34 mL/min (70-130); Calcium 8.7 mg/dL (7.8-10.44); Carbon Dioxide 23 mmol/L (23-31); Chloride 102 mmol/L (98-107); Estimated GFR-MDRD 27; Glucose 167 mg/dL (80-115); Potassium 3.8 mmol/L (3.5-5.1); Sodium 136 mmol/L (136-145)
[2019-03-07 14:44] VITALS: BMI 27.6
[2019-03-07] MEDS: clonazePAM 0.5 MG TAB PO PRN ×2 (15:07→23:25)
[2019-03-07] MEDS: Ezetimibe 10 MG TAB PO SCH (20:04)
[2019-03-07] MEDS: Simvastatin 40 MG TAB PO SCH (20:04)
[2019-03-07] MEDS ORDERED: SIMVASTATIN PO SCH (21:00)
[2019-03-07] MEDS ORDERED: [UNRECOGNIZED DRUG - OTHER] PO SCH (21:00)
[2019-03-07] MEDS ORDERED: EZETIMIBE PO SCH (21:00)
[2019-03-07] MEDS: HYDROcodone/Acetaminophen 10/325 mg Tablet PO PRN (21:53)
[2019-03-07] MEDS: Nicotine 14 MG PATCH TD SCH (21:54)
[2019-03-08 05:54] LABS: Troponin I Less than 0.010 ng/mL (< 0.028)
[2019-03-08] MEDS: Furosemide 40 MG TAB PO SCH ×2 (08:22→15:31)
[2019-03-08] MEDS: guaiFENesin ER 600 MG TAB PO SCH (08:23)
[2019-03-08] MEDS: pyridOXINE 50 MG (B6) TAB PO SCH (08:23)
[2019-03-08] MEDS: Aspirin 325 mg Enteric Coated Tablet PO SCH (08:23)
[2019-03-08] MEDS: Oxybutynin 5 MG TAB PO SCH ×2 (08:23→20:42)
[2019-03-08] MEDS: Montelukast Sodium 10 mg Tablet PO SCH (08:23)
[2019-03-08] MEDS: Escitalopram Oxalate 20 mg Tablet PO SCH (08:23)
[2019-03-08] MEDS: Amlodipine 10 MG TAB PO SCH (08:23)
[2019-03-08] MEDS: Famotidine 20 MG TAB PO SCH (08:24)
[2019-03-08] MEDS: Enoxaparin Sodium 30 MG/0.3 ML SYRINGE SC SCH (08:24)
[2019-03-08] MEDS: HYDROcodone/Acetaminophen 10/325 mg Tablet PO PRN ×2 (08:35→20:46)
[2019-03-08] MEDS: clonazePAM 0.5 MG TAB PO PRN (08:45)
[2019-03-08 09:36] LABS: Anion Gap 15 mmol/L (10-20); BUN (Urea Nitrogen) 37 mg/dL (9.8-20.1); Calc. Creatinine Clearance 32 mL/min (70-130); Calcium 8.6 mg/dL (7.8-10.44); Carbon Dioxide 23 mmol/L (23-31); Chloride 103 mmol/L (98-107); Estimated GFR-MDRD 26; Glucose 127 mg/dL (80-115); Potassium 3.8 mmol/L (3.5-5.1); Sodium 137 mmol/L (136-145)
--- NOTE | 2019-03-08 10:04 | PDOC.HOSPP ---
- Subjective Encounter Date: 03/08/19 Encounter Time: 10:02 Subjective: Ms. Logan was today in follow-up of respiratory failure. She feels she is not doing much better. She is not happy with the adjustments in her medications. She would like to have another doctor. - Objective Vital Signs & Weight: Vital Signs (12 hours) Temp Pulse Resp BP BP Pulse Ox 03/08/19 08:23 135/53 L 03/08/19 07:50 98.5 F 77 18 135/63 93 L 03/08/19 06:42 88 16 92 L 03/08/19 03:19 98.4 F 78 16 167/90 H 96 03/07/19 23:33 72 16 95 03/07/19 23:20 98.3 F 71 17 162/72 H 94 L Weight Admit Weight 161 lb 4.8 oz Weight 160 lb 8 oz I&O: 03/07/19 03/08/19 03/09/19 06:59 06:59 06:59 Intake Total 400 1010 Output Total 300 600 Balance 100 410 Result Diagrams: 03/07/19 04:36 03/08/19 09:07 Additional Labs: Accuchecks 03/08/19 03/07/19 03/07/19 04:30 21:09 17:08 POC Glucose 139 H 102 166 H 03/07/19 11:02 POC Glucose 203 H Hospitalist ROS - Medication Medications: Active Medications Generic Name Dose Route Start Last Admin Trade Name Freq PRN Reason Stop Dose Admin Hydrocodone Bitart/Acetaminophen 1 tab 03/07/19 11:14 03/08/19 08:35 [place] 10/325 PO 1 tab Q8HR PRN Administration PAIN Albuterol/Ipratropium 3 ml 03/07/19 13:00 03/08/19 06:42 Duoneb NEB 3 ml [id number] GUILLE Administration Amlodipine Besylate 10 mg 03/08/19 09:00 03/08/19 08:23 Norvasc PO Not Given DAILY [facility] Aspirin 325 mg 03/07/19 09:00 03/08/19 08:23 Ecotrin PO 325 mg DAILY [facility] Administration Clonazepam 1 mg 03/07/19 11:12 03/08/19 08:45 Klonopin PO 1 mg TID PRN Administration Anxiety/Agitation Ezetimibe 10 mg 03/07/19 21:00 03/07/19 20:04 Zetia PO 10 mg HS GU[facility] Administration Enoxaparin Sodium 30 mg 03/08/19 09:00 03/08/19 08:24 Lovenox SC 30 mg 0900 [facility] Administration Escitalopram Oxalate 20 mg 03/07/19 09:00 03/08/19 08:23 Lexapro PO 20 mg DAILY [facility] Administration Famotidine 20 mg 03/07/19 09:00 03/08/19 08:24 Pepcid PO Not Given DAILY [facility] Furosemide 40 mg 03/07/19 09:00 03/08/19 08:22 Lasix PO 40 mg 0900,1400 [facility] Administration Guaifenesin 1,200 mg 03/08/19 09:00 03/08/19 08:23 Mucinex PO 1,200 mg DAILY [facility] Administration Metoprolol Succinate 50 mg 03/08/19 09:00 03/08/19 08:23 Toprol Xl PO 50 mg DAILY [facility] Administration Montelukast Sodium 10 mg 03/07/19 09:00 03/08/19 08:23 Singulair PO 10 mg DAILY [facility] Administration Nicotine 14 mg 03/06/19 22:30 03/07/19 21:54 Nicoderm Patch TD 14 mg Q24HR [facility] Administration Oxybutynin Chloride 10 mg 03/07/19 09:00 03/08/19 08:23 Ditropan PO 10 mg BID [facility] Administration Pantoprazole Sodium 40 mg 03/07/19 09:00 03/08/19 08:23 Protonix PO 40 mg DAILY [facility] Administration Pyridoxine HCl 100 mg 03/07/19 09:00 03/08/19 08:23 Vitamin B 6 PO 100 mg DAILY [facility] Administration Simvastatin 40 mg 03/07/19 21:00 03/07/19 20:04 Zocor PO 40 mg HS GUILLE Administration Sodium Chloride 10 ml 03/08/19 09:00 03/08/19 08:24 Flush - Normal Saline IVF 10 ml Q12HR [facility] Administration Vitamin E 600 units 03/07/19 09:00 03/08/19 08:36 Vitamin E PO 600 units DAILY [facility] Administration - Exam Eye: PERRL Heart: RRR, no murmur, no gallops, no rubs, normal peripheral pulses Respiratory: CTAB (with the exception of an occasional wheeze, and occasional) Gastrointestinal: soft, non-tender, non-distended, normal bowel sounds, no palpable masses, no hepatomegaly Extremities: 1+ LE edema Hosp A/P (1) Acute respiratory failure with hypoxia Code(s): J96.01 - ACUTE RESPIRATORY FAILURE WITH HYPOXIA Status: Acute (2) COPD (chronic obstructive pulmonary disease) Status: Chronic Qualifiers: (3) Generalized anxiety disorder Code(s): F41.1 - GENERALIZED ANXIETY DISORDER Status: Chronic (4) Hypertension Code(s): I10 - ESSENTIAL (PRIMARY) HYPERTENSION Status: Chronic Qualifiers: - Plan * Acute on chronic respiratory failure with hypoxemia- she appears to be clinically improved * her BNP has improved * HTN- blood pressure is stable * COPD- clinically this is stable as well * Anxiety- continue the current regimen * Chronic pain- this is clinically stable * She is not happy with her treatment, so will contact the Resident service to see if they will accept her in transfer of care
[2019-03-08] MEDS ORDERED: Milk Of Magnesia 30 ML UDCUP PO PRN (11:49)
[2019-03-08] MEDS ORDERED: Docusate 100 MG CAP PO SCH (12:00)
[2019-03-08] MEDS: Docusate 100 MG CAP PO SCH (20:42)
[2019-03-08] MEDS: Ezetimibe 10 MG TAB PO SCH (20:43)
[2019-03-08] MEDS: Simvastatin 40 MG TAB PO SCH (20:43)
[2019-03-08] MEDS: Nicotine 14 MG PATCH TD SCH (20:48)
[2019-03-09] MEDS: Furosemide 40 MG TAB PO SCH ×2 (08:15→13:01)
[2019-03-09] MEDS: guaiFENesin ER 600 MG TAB PO SCH (08:15)
[2019-03-09] MEDS: Montelukast Sodium 10 mg Tablet PO SCH (08:16)
[2019-03-09] MEDS: Famotidine 20 MG TAB PO SCH (08:16)
[2019-03-09] MEDS: pyridOXINE 50 MG (B6) TAB PO SCH (08:16)
[2019-03-09] MEDS: Docusate 100 MG CAP PO SCH ×2 (08:16→20:53)
[2019-03-09] MEDS: Aspirin 325 mg Enteric Coated Tablet PO SCH (08:16)
[2019-03-09] MEDS: Escitalopram Oxalate 20 mg Tablet PO SCH (08:16)
[2019-03-09] MEDS: Amlodipine 10 MG TAB PO SCH (08:16)
[2019-03-09] MEDS: Enoxaparin Sodium 30 MG/0.3 ML SYRINGE SC SCH (08:17)
[2019-03-09] MEDS: Oxybutynin 5 MG TAB PO SCH ×2 (08:17→20:52)
[2019-03-09] MEDS: HYDROcodone/Acetaminophen 10/325 mg Tablet PO PRN (13:05)
--- NOTE | 2019-03-09 14:41 | PDOC.HOSPP ---
- Subjective Encounter Date: 03/09/19 Encounter Time: 14:40 Subjective: Ms. Logan was seen today in follow-up of CHF exacerbation. She says she is breathing a little better, but still not at her baseline. - Objective Vital Signs & Weight: Vital Signs (12 hours) Temp Pulse Resp BP Pulse Ox 03/09/19 12:56 74 20 98 03/09/19 11:45 97.8 F 72 18 137/78 95 03/09/19 08:16 65 03/09/19 07:15 98.5 F 69 16 157/68 H 91 L 03/09/19 06:30 65 18 100 03/09/19 04:45 98.3 F 72 15 147/69 H 96 Weight Admit Weight 161 lb 4.8 oz Weight 158 lb 11.2 oz I&O: 03/08/19 03/09/19 03/10/19 06:59 06:59 06:59 Intake Total 1010 820 Output Total 600 350 800 Balance 410 470 -800 Result Diagrams: 03/07/19 04:36 03/08/19 09:07 Hospitalist ROS - Medication Medications: Active Medications Generic Name Dose Route Start Last Admin Trade Name Freq PRN Reason Stop Dose Admin Hydrocodone Bitart/Acetaminophen 1 tab 03/07/19 11:14 03/09/19 13:05 [place] 10/325 PO 1 tab Q8HR PRN Administration PAIN Albuterol/Ipratropium 3 ml 03/07/19 13:00 03/09/19 12:56 Duoneb NEB 3 ml [id number] GUILLE Administration Amlodipine Besylate 10 mg 03/08/19 09:00 03/09/19 08:16 Norvasc PO 10 mg DAILY [facility] Administration Aspirin 325 mg 03/07/19 09:00 03/09/19 08:16 Ecotrin PO 325 mg DAILY [facility] Administration Clonazepam 1 mg 03/07/19 11:12 03/08/19 08:45 Klonopin PO 1 mg TID PRN Administration Anxiety/Agitation Docusate Sodium 100 mg 03/08/19 21:00 03/09/19 08:16 Colace PO 100 mg BID GU[facility]LE Administration Ezetimibe 10 mg 03/07/19 21:00 03/08/19 20:43 Zetia PO 10 mg HS GUILLE Administration Enoxaparin Sodium 30 mg 03/08/19 09:00 03/09/19 08:17 Lovenox SC 30 mg 0900 [facility] Administration Escitalopram Oxalate 20 mg 03/07/19 09:00 03/09/19 08:16 Lexapro PO 20 mg DAILY GUILLE Administration Famotidine 20 mg 03/07/19 09:00 03/09/19 08:16 Pepcid PO 20 mg DAILY [facility] Administration Furosemide 40 mg 03/07/19 09:00 03/09/19 13:01 Lasix PO Not Given 0900,1400 [facility] Guaifenesin 1,200 mg 03/08/19 09:00 03/09/19 08:15 Mucinex PO 1,200 mg DAILY [facility] Administration Metoprolol Succinate 50 mg 03/08/19 09:00 03/09/19 08:16 Toprol Xl PO 50 mg DAILY [facility] Administration Montelukast Sodium 10 mg 03/07/19 09:00 03/09/19 08:16 Singulair PO 10 mg DAILY [facility] Administration Nicotine 14 mg 03/06/19 22:30 03/08/19 20:48 Nicoderm Patch TD 14 mg Q24HR [facility] Administration Oxybutynin Chloride 10 mg 03/07/19 09:00 03/09/19 08:17 Ditropan PO 10 mg BID [facility] Administration Pantoprazole Sodium 40 mg 03/07/19 09:00 03/09/19 08:16 Protonix PO 40 mg DAILY [facility] Administration Pyridoxine HCl 100 mg 03/07/19 09:00 03/09/19 08:16 Vitamin B 6 PO 100 mg DAILY [facility] Administration Simvastatin 40 mg 03/07/19 21:00 03/08/19 20:43 Zocor PO 40 mg HS GUILLE Administration Sodium Chloride 10 ml 03/08/19 09:00 03/09/19 08:17 Flush - Normal Saline IVF 10 ml Q12HR [facility] Administration Vitamin E 600 units 03/07/19 09:00 03/09/19 08:17 Vitamin E PO Not Given DAILY [facility] - Exam Eye: PERRL Heart: RRR, no murmur, no gallops, no rubs, normal peripheral pulses Respiratory: CTAB, rales (left base, only an occasional faint wheeze) Gastrointestinal: soft, non-tender, non-distended, normal bowel sounds, no palpable masses, no hepatomegaly Extremities: no cyanosis, no clubbing, no edema Hosp A/P (1) Acute respiratory failure with hypoxia Code(s): J96.01 - ACUTE RESPIRATORY FAILURE WITH HYPOXIA Status: Acute (2) COPD (chronic obstructive pulmonary disease) Status: Chronic Qualifiers: (3) Generalized anxiety disorder Code(s): F41.1 - GENERALIZED ANXIETY DISORDER Status: Chronic (4) Hypertension Code(s): I10 - ESSENTIAL (PRIMARY) HYPERTENSION Status: Chronic Qualifiers: - Plan * Acute on chronic respiratory failure with hypoxemia- she continues to improve from my standpoint, but await Pulmonary input * Acute on chronic diastolic heart failure- resolved- will discontinue Lasix * HTN- blood pressure is stable * COPD- stable- continue current regimen, and await Pulmonary Input * Anxiety- continue the current regimen * Chronic pain- this is clinically stable * The [facility] declined to accept the patient in transfer of care. I explained this to the patient. She says she is willing to allow me to continue treating her in the hospital. I will leave her final disposition up to the Pulmonary Team
--- NOTE | 2019-03-09 19:49 | CON ---
DATE OF CONSULTATION: REASON FOR CONSULTATION: Elevated creatinine. HISTORY OF PRESENT ILLNESS: A very pleasant 64-year-old female, presented to the hospital with dyspnea and rise in creatinine. Her baseline creatinine was 1.6, which increased to 1.9, so I was consulted. The patient has a history of congestive heart failure and Lasix was started, and her creatinine layne. The patient denies any nausea, vomiting, or chest pain. PAST MEDICAL HISTORY: Significant for hypertension, CKD, pneumonia, COPD, diabetes mellitus, laparoscopic surgery for adhesions, hysterectomy, back surgery, bladder lift, multiple episodes of acute kidney injury, and edema. SOCIAL HISTORY: No alcohol or drug use. FAMILY HISTORY: Negative for ESRD. ALLERGIES: REVIEWED. MEDICATIONS: Home medications list, reviewed. Hospital medications list, reviewed. REVIEW OF SYSTEMS: A 15-point review of systems was performed and was negative except for positives noted above. GENERAL: HEAD: NECK: No swelling or lumps. NOSE: No epistaxis or discharge. EYES: No diplopia or pain. RESPIRATORY: CARDIOVASCULAR: GASTROINTESTINAL: /[employer]: MUSCULOSKELETAL: No joint pain. NEUROPSYCHIATIC SYSTEMS: No suicidal ideation. No ideation. SKIN: Denies any rash or ulcer. CONSTITUTIONAL: No fever or chills. PHYSICAL EXAMINATION: GENERAL: The patient is awake and alert. VITAL SIGNS: Afebrile, pulse 75, breathing 16, blood pressure 137/84. GENERAL APPEARANCE AND MENTAL STATUS: Fair. HEAD/NECK: Normocephalic. Atraumatic. EYES: EOMI. No deformity. EARS: Clear. No ulcers. NOSE: Intact. No lesions. MOUTH: Clear. No discharge. THROAT: Clear. No exudate. LUNGS: Clear. No crackles. CARDIAC: S1, S2. No rub. ABDOMEN: Benign. Bowel sounds positive. GENITALIA/RECTUM: Brock absent. BACK/EXTREMITIES: Edema 0+. NEUROLOGICAL: Alert and motor intact. SKIN: LYMPHATICS: LABORATORY DATA: Reviewed. ASSESSMENT AND PLAN: 1. Chronic kidney disease, stage 4 with acute kidney injury due to acute tubular necrosis due to decreased effective arterial blood volume. Continue gentle hydration. Lasix. 2. Hypertension, stable. 3. Anemia, stable. Medication based on GFR, appropriate. No indication for dialysis at this time. Job ID: [id number]
[2019-03-09] MEDS: Simvastatin 40 MG TAB PO SCH (20:52)
[2019-03-09] MEDS: Ezetimibe 10 MG TAB PO SCH (20:52)
[2019-03-09] MEDS: Nicotine 14 MG PATCH TD SCH (20:55)
[2019-03-09] MEDS: clonazePAM 0.5 MG TAB PO PRN (20:58)
[2019-03-09 22:26] LABS: #Basophils 0.1 thou/uL (0.0-0.2); #Eosinphils 0.4 thou/uL (0.0-0.7); #Lymphocytes 3.6 thou/uL (1.20-3.40); #Neutrophils 5.8 thou/uL (1.40-6.50); %Basophils 1.1 % (0.0-1.0); %Eosinophils 3.9 % (0.0-10.0); %Lymphocytes 33.1 % (21.0-51.0); %Monocytes 9.2 % (0.0-10.0); %Neutrophils 52.7 % (42.0-75.0); Hemoglobin 10.9 g/dL (12.0-16.0); Mean Corpuscular HGB CONC 32.9 g/dL (32.0-36.0); Mean Corpuscular Hemoglobin 30.5 pg (27.0-31.0); Mean Corpuscular Volume 92.8 fL (78.0-98.0); Mean Platelet Volume 8.1 fL (7.4-10.4); Platelet Count 329 thou/uL (130-400); RBC Distribution Width 12.9 % (11.5-14.5); Red Blood Cell (RBC) Count 3.57 mill/uL (4.20-5.40)
[2019-03-09 22:47] LABS: Anion Gap 16 mmol/L (10-20); BUN (Urea Nitrogen) 48 mg/dL (9.8-20.1); Calc. Creatinine Clearance 27 mL/min (70-130); Calcium 9.1 mg/dL (7.8-10.44); Carbon Dioxide 32 mmol/L (23-31); Chloride 98 mmol/L (98-107); Estimated GFR-MDRD 21; Glucose 90 mg/dL (80-115); Magnesium 1.3 mg/dL (1.6-2.6); Potassium 3.6 mmol/L (3.5-5.1); Sodium 142 mmol/L (136-145)
[2019-03-10 05:11] LABS: #Basophils 0.1 thou/uL (0.0-0.2); #Eosinphils 0.4 thou/uL (0.0-0.7); #Monocytes 0.8 thou/uL (0.11-0.59); #Neutrophils 4.9 thou/uL (1.40-6.50); %Basophils 0.9 % (0.0-1.0); %Eosinophils 3.8 % (0.0-10.0); %Lymphocytes 32.2 % (21.0-51.0); %Monocytes 9.2 % (0.0-10.0); Hemoglobin 9.4 g/dL (12.0-16.0); Mean Corpuscular HGB CONC 32.5 g/dL (32.0-36.0); Mean Corpuscular Hemoglobin 29.8 pg (27.0-31.0); Mean Corpuscular Volume 91.8 fL (78.0-98.0); Mean Platelet Volume 8.1 fL (7.4-10.4); Platelet Count 238 thou/uL (130-400); RBC Distribution Width 12.7 % (11.5-14.5); Red Blood Cell (RBC) Count 3.15 mill/uL (4.20-5.40); White Blood Cell (WBC) Count 9.2 thou/uL (4.8-10.8)
[2019-03-10 05:33] LABS: Anion Gap 12 mmol/L (10-20); BUN (Urea Nitrogen) 47 mg/dL (9.8-20.1); Calc. Creatinine Clearance 30 mL/min (70-130); Calcium 8.5 mg/dL (7.8-10.44); Carbon Dioxide 31 mmol/L (23-31); Chloride 98 mmol/L (98-107); Estimated GFR-MDRD 24; Glucose 114 mg/dL (80-115); Potassium 3.4 mmol/L (3.5-5.1); Sodium 138 mmol/L (136-145)
[2019-03-10] MEDS ORDERED: Potassium Chloride 20 MEQ TAB PO SCH (08:00)
[2019-03-10] MEDS ORDERED: Magnesium 2 GM/50 ML 2 GM in Premix Bag 1 BAG IVPB SCH (08:00)
[2019-03-10] MEDS: Enoxaparin Sodium 30 MG/0.3 ML SYRINGE SC SCH (09:08)
[2019-03-10] MEDS: Amlodipine 10 MG TAB PO SCH (09:08)
[2019-03-10] MEDS: Docusate 100 MG CAP PO SCH ×2 (09:08→20:53)
[2019-03-10] MEDS: Famotidine 20 MG TAB PO SCH (09:09)
[2019-03-10] MEDS: Oxybutynin 5 MG TAB PO SCH ×2 (09:10→20:54)
[2019-03-10] MEDS: Escitalopram Oxalate 20 mg Tablet PO SCH (09:10)
[2019-03-10] MEDS: Montelukast Sodium 10 mg Tablet PO SCH (09:10)
[2019-03-10] MEDS: guaiFENesin ER 600 MG TAB PO SCH (09:10)
[2019-03-10] MEDS: Aspirin 325 mg Enteric Coated Tablet PO SCH (09:10)
[2019-03-10] MEDS: pyridOXINE 50 MG (B6) TAB PO SCH (09:11)
[2019-03-10] MEDS: clonazePAM 0.5 MG TAB PO PRN ×2 (09:16→20:53)
--- NOTE | 2019-03-10 09:43 | PDOC.HOSPP ---
- Subjective Encounter Date: 03/10/19 Encounter Time: 09:41 Subjective: Ms. Logan was seen today in follow-up of respiratory failure. She says she still feels like her COPD is acting up. - Objective Vital Signs & Weight: Vital Signs (12 hours) Temp Pulse Resp BP Pulse Ox 03/10/19 09:39 96 03/10/19 07:47 98.2 F 74 14 150/70 H 92 L 03/10/19 07:22 72 16 03/10/19 04:00 98.3 F 72 16 146/68 H 95 03/10/19 00:02 98 Weight Admit Weight 161 lb 4.8 oz Weight 156 lb 8 oz I&O: 03/09/19 03/10/19 03/11/19 06:59 06:59 06:59 Intake Total 820 Output Total 350 800 Balance 470 -800 Result Diagrams: 03/10/19 05:03 03/10/19 05:04 Hospitalist ROS - Medication Medications: Active Medications Generic Name Dose Route Start Last Admin Trade Name Freq PRN Reason Stop Dose Admin Hydrocodone Bitart/Acetaminophen 1 tab 03/07/19 11:14 03/09/19 13:05 [place] 10/325 PO 1 tab Q8HR PRN Administration PAIN Albuterol/Ipratropium 3 ml 03/07/19 13:00 03/10/19 07:22 Duoneb NEB 3 ml [id number] [facility] Administration Amlodipine Besylate 10 mg 03/08/19 09:00 03/10/19 09:08 Norvasc PO 10 mg DAILY [facility] Administration Aspirin 325 mg 03/07/19 09:00 03/10/19 09:10 Ecotrin PO 325 mg DAILY [facility] Administration Clonazepam 1 mg 03/07/19 11:12 03/10/19 09:16 Klonopin PO 1 mg TID PRN Administration Anxiety/Agitation Docusate Sodium 100 mg 03/08/19 21:00 03/10/19 09:08 Colace PO 100 mg BID [facility] Administration Ezetimibe 10 mg 03/07/19 21:00 03/09/19 20:52 Zetia PO 10 mg HS [facility] Administration Enoxaparin Sodium 30 mg 03/08/19 09:00 03/10/19 09:08 Lovenox SC 30 mg 0900 [facility] Administration Escitalopram Oxalate 20 mg 03/07/19 09:00 03/10/19 09:10 Lexapro PO 20 mg DAILY [facility] Administration Famotidine 20 mg 03/07/19 09:00 03/10/19 09:09 Pepcid PO 20 mg DAILY [facility] Administration Guaifenesin 1,200 mg 03/08/19 09:00 03/10/19 09:10 Mucinex PO 1,200 mg DAILY [facility] Administration Magnesium Sulfate 2 gm/ Device 50 mls @ 50 mls/hr 03/10/19 08:00 03/10/19 09: 08 IVPB 03/10/19 10:00 50 mls NOW [facility] Administration Metoprolol Succinate 50 mg 03/08/19 09:00 03/10/19 09:10 Toprol Xl PO 50 mg DAILY [facility] Administration Montelukast Sodium 10 mg 03/07/19 09:00 03/10/19 09:10 Singulair PO 10 mg DAILY [facility] Administration Nicotine 14 mg 03/06/19 22:30 03/09/19 20:55 Nicoderm Patch TD 14 mg Q24HR [facility] Administration Oxybutynin Chloride 10 mg 03/07/19 09:00 03/10/19 09:10 Ditropan PO 10 mg BID [facility] Administration Pantoprazole Sodium 40 mg 03/07/19 09:00 03/10/19 09:08 Protonix PO 40 mg DAILY [facility] Administration Potassium Chloride 40 meq 03/10/19 08:00 03/10/19 09:08 K-Dur PO 03/10/19 10:00 40 meq NOW [facility] Administration Pyridoxine HCl 100 mg 03/07/19 09:00 03/10/19 09:11 Vitamin B 6 PO 100 mg DAILY [facility] Administration Simvastatin 40 mg 03/07/19 21:00 03/09/19 20:52 Zocor PO 40 mg HS [facility] Administration Sodium Chloride 10 ml 03/08/19 09:00 03/10/19 09:11 Flush - Normal Saline IVF 10 ml Q12HR [facility] Administration Vitamin E 600 units 03/07/19 09:00 03/10/19 09:11 Vitamin E PO 600 units DAILY [facility] Administration - Exam Eye: PERRL Heart: RRR, no murmur, no gallops, no rubs, normal peripheral pulses Respiratory: CTAB, no wheezes, no rales, no ronchi, normal chest expansion, no tachypnea Gastrointestinal: soft, non-tender, non-distended, normal bowel sounds, no palpable masses, no hepatomegaly Extremities: no cyanosis, no clubbing, no edema Hosp A/P (1) Acute respiratory failure with hypoxia Code(s): J96.01 - ACUTE RESPIRATORY FAILURE WITH HYPOXIA Status: Acute (2) COPD (chronic obstructive pulmonary disease) Status: Chronic Qualifiers: (3) Generalized anxiety disorder Code(s): F41.1 - GENERALIZED ANXIETY DISORDER Status: Chronic (4) Hypertension Code(s): I10 - ESSENTIAL (PRIMARY) HYPERTENSION Status: Chronic Qualifiers: - Plan * Acute on chronic respiratory failure with hypoxemia- she continues to improve from my standpoint, but await Pulmonary input * Acute on chronic diastolic heart failure-compensated * HTN- blood pressure is stable * COPD- stable- continue current regimen, and await Pulmonary Input * Anxiety- continue the current regimen * Chronic pain- this is clinically stable * Chronic kidney disease stage 4- stable * Disposition as per Pulmonology
--- NOTE | 2019-03-10 11:35 | PRG ---
DATE OF SERVICE: 03/10/2019 SUBJECTIVE: A 64-year-old female, being seen for acute kidney injury. The patient denies any nausea, vomiting, or chest pain. OBJECTIVE: GENERAL: The patient is awake and alert. VITAL SIGNS: Afebrile, pulse 86, breathing 16, blood pressure 150/70. GENERAL APPEARANCE AND MENTAL STATUS: Fair. HEAD/NECK: Normocephalic. Atraumatic. EYES: EOMI. No deformity. EARS: Clear. No ulcers. NOSE: Intact. No lesions. MOUTH: Clear. No discharge. THROAT: Clear. No exudate. LUNGS: Clear. No crackles. CARDIAC: S1, S2. No rub. ABDOMEN: Benign. Bowel sounds positive. GENITALIA/RECTUM: Brock absent. BACK/EXTREMITIES: Edema 0+. NEUROLOGICAL: Alert and motor intact. SKIN: LYMPHATICS: LABORATORY DATA: Reviewed. ASSESSMENT AND PLAN: 1. Chronic kidney disease, stage 4, stable. 2. Acute kidney injury due to acute tubular necrosis, stable. 3. Hypertension, stable. 4. Anemia, stable. No indication for dialysis. Job ID: [id number]
[2019-03-10] MEDS: HYDROcodone/Acetaminophen 10/325 mg Tablet PO PRN (17:20)
[2019-03-10] MEDS: Ezetimibe 10 MG TAB PO SCH (20:53)
[2019-03-10] MEDS: Simvastatin 40 MG TAB PO SCH (20:53)
[2019-03-10] MEDS: Nicotine 14 MG PATCH TD SCH (20:55)
[2019-03-11] MEDS: HYDROcodone/Acetaminophen 10/325 mg Tablet PO PRN ×3 (02:01→21:36)
[2019-03-11] MEDS: Docusate 100 MG CAP PO SCH ×2 (08:53→21:29)
[2019-03-11] MEDS: clonazePAM 0.5 MG TAB PO PRN (08:56)
[2019-03-11] MEDS: Enoxaparin Sodium 30 MG/0.3 ML SYRINGE SC SCH (08:56)
[2019-03-11] MEDS: predniSONE 20 MG TAB PO SCH (08:57)
[2019-03-11] MEDS: pyridOXINE 50 MG (B6) TAB PO SCH (08:57)
[2019-03-11] MEDS: Famotidine 20 MG TAB PO SCH (08:57)
[2019-03-11] MEDS: Amlodipine 10 MG TAB PO SCH (08:57)
[2019-03-11] MEDS: Aspirin 325 mg Enteric Coated Tablet PO SCH (08:58)
[2019-03-11] MEDS: guaiFENesin ER 600 MG TAB PO SCH (08:58)
[2019-03-11] MEDS: Montelukast Sodium 10 mg Tablet PO SCH (08:58)
[2019-03-11] MEDS: Escitalopram Oxalate 20 mg Tablet PO SCH (08:58)
[2019-03-11] MEDS: Oxybutynin 5 MG TAB PO SCH ×2 (08:58→21:29)
--- NOTE | 2019-03-11 13:26 | PRG ---
DATE OF SERVICE: 03/11/2019 SUBJECTIVE: A 64-year-old female, being seen for acute kidney injury. The patient denied any nausea, vomiting, or chest pain. OBJECTIVE: CONSTITUTIONAL: The patient is awake and alert. VITAL SIGNS: Afebrile. Pulse 81, breathing 16, blood pressure 111/57. GENERAL APPEARANCE AND MENTAL STATUS: Fair. HEAD/NECK: Normocephalic. Atraumatic. EYES: EOMI. No deformity. EARS: Clear. No ulcers. NOSE: Intact. No lesions. MOUTH: Clear. No discharge. THROAT: Clear. No exudate. LUNGS: Clear. No crackles. CARDIAC: S1, S2. No rub. ABDOMEN: Benign. Bowel sounds positive. GENITALIA/RECTUM: Brock absent. BACK/EXTREMITIES: Edema 0+. NEUROLOGICAL: Alert and motor intact. SKIN: LYMPHATICS: LABORATORY DATA: Showed hemoglobin 9.4. Potassium 3.4, creatinine 2.1. Today's creatinine is pending. ASSESSMENT AND PLAN: 1. Acute kidney injury on chronic kidney disease. Recheck labs. 2. Chronic kidney disease, stage 4, stable. 3. Acute kidney injury due to ATN, stable. 4. Hypertension, stable. 5. Medication based on GFR, appropriate. Job ID: [id number]
[2019-03-11] MEDS ORDERED: Potassium Chloride 20 MEQ TAB PO SCH (14:30)
--- NOTE | 2019-03-11 14:53 | PDOC.HOSPP ---
- Subjective Encounter Date: 03/11/19 Encounter Time: 14:51 Subjective: Patient states she still is not at her baseline in terms of shortness of breath. She feels winded walking outside, states cold weather triggers it. She has no cough per nurse. No chest pain. SHe says her steroids were just started today, was wondering why they weren't started earlier. She was not taking her breathing treatments at home Patient complains that she can't urinate ever since she got the lasix. Per nursing staff however, she has been urinating? Patient was asked about going home, states she doesn't feel comfortable today The patient is an active smoker, quit for fifteen years but states that she relapsed because her grand-daughter and her mother in the same year She is requesting her norco every 4 hours like she takes at home. Denies constipation. - Objective Vital Signs & Weight: Vital Signs (12 hours) Temp Pulse Resp BP BP Pulse Ox 03/11/19 11:29 98.3 F 81 16 111/57 L 92 L 03/11/19 10:46 76 16 03/11/19 10:45 123/58 L 03/11/19 08:57 73 102/52 L 03/11/19 08:50 98.4 F 73 16 102/52 L 96 03/11/19 08:00 96 03/11/19 03:17 97.7 F 84 14 105/58 L 96 Weight Admit Weight 161 lb 4.8 oz Weight 165 lb 12.8 oz I&O: 03/10/19 03/11/19 03/12/19 06:59 06:59 06:59 Intake Total 240 Output Total 800 Balance -800 240 Result Diagrams: 03/10/19 05:03 03/10/19 05:04 Hospitalist ROS - Review of Systems Constitutional: denies: fever, chills Cardiovascular: denies: chest pain - Medication Medications: Active Medications Generic Name Dose Route Start Last Admin Trade Name Freq PRN Reason Stop Dose Admin Albuterol/Ipratropium 3 ml 03/07/19 13:00 03/11/19 10:46 Duoneb NEB 3 ml [id number] GUILLE Administration Amlodipine Besylate 10 mg 03/08/19 09:00 03/11/19 08:57 Norvasc PO 10 mg DAILY GUILLE Administration Aspirin 325 mg 03/07/19 09:00 03/11/19 08:58 Ecotrin PO 325 mg DAILY GUILLE Administration Clonazepam 1 mg 03/07/19 11:12 03/11/19 08:56 Klonopin PO 1 mg TID PRN Administration Anxiety/Agitation Docusate Sodium 100 mg 03/08/19 21:00 03/11/19 08:53 Colace PO Not Given BID GUILLE Ezetimibe 10 mg 03/07/19 21:00 03/10/19 20:53 Zetia PO 10 mg HS GUILLE Administration Enoxaparin Sodium 30 mg 03/08/19 09:00 03/11/19 08:56 Lovenox SC 30 mg 0900 GUILLE Administration Escitalopram Oxalate 20 mg 03/07/19 09:00 03/11/19 08:58 Lexapro PO 20 mg DAILY GUILLE Administration Famotidine 20 mg 03/07/19 09:00 03/11/19 08:57 Pepcid PO 20 mg DAILY GUILLE Administration Guaifenesin 1,200 mg 03/08/19 09:00 03/11/19 08:58 Mucinex PO 1,200 mg DAILY GUILLE Administration Metoprolol Succinate 50 mg 03/08/19 09:00 03/11/19 10:44 Toprol Xl PO 50 mg DAILY GUILLE Administration Montelukast Sodium 10 mg 03/07/19 09:00 03/11/19 08:58 Singulair PO 10 mg DAILY GUILLE Administration Nicotine 14 mg 03/06/19 22:30 03/10/19 20:55 Nicoderm Patch TD 14 mg Q24HR GUILLE Administration Oxybutynin Chloride 10 mg 03/07/19 09:00 03/11/19 08:58 Ditropan PO 10 mg BID GUILLE Administration Pantoprazole Sodium 40 mg 03/07/19 09:00 03/11/19 08:57 Protonix PO 40 mg DAILY GUILLE Administration Prednisone 40 mg 03/11/19 08:00 03/11/19 08:57 Prednisone PO 40 mg QAM-WM GUILLE Administration Pyridoxine HCl 100 mg 03/07/19 09:00 03/11/19 08:57 Vitamin B 6 PO 100 mg DAILY GUILLE Administration Simvastatin 40 mg 03/07/19 21:00 03/10/19 20:53 Zocor PO 40 mg HS GUILLE Administration Sodium Chloride 10 ml 03/08/19 09:00 03/11/19 09:02 Flush - Normal Saline IVF 10 ml Q12HR GUILLE Administration Vitamin E 600 units 03/07/19 09:00 03/11/19 12:02 Vitamin E PO 600 units DAILY GUILLE Administration - Exam General Appearance: NAD, awake alert Eye: PERRL, anicteric sclera ENT: normocephalic atraumatic, no oropharyngeal lesions Neck: supple, symmetric, no JVD, no thyromegaly Heart: RRR, no murmur, no gallops, no rubs, normal peripheral pulses, diminshed peripheral pulses Heart - other findings: Loud systolic murmur second right intercostal space Respiratory: CTAB, no wheezes, no rales, no ronchi Gastrointestinal: soft, non-tender, non-distended, normal bowel sounds Extremities: no cyanosis, no clubbing, no edema Skin: normal turgor, no lesions, no rashes Hosp A/P - Plan Chest X ray: no acute disease This is 64 year old female who presented with COPD exacerbation COPD exacerbation - stable on room air. Continue breathing treatments - on prednisone, singulair, duoneb q4 hours, Hypokalemia - potassium 3.4, recheck labs Hypomagnesemia - mag low yesterday, recheck today Aortic stenosis - noted on last ECHO a month ago. Was mild at that time - troponin negative times three Hypertension - amlodipine CKD - creatinine 2.1 yesterday. Repeat labs today Macrocytic anemia - had low folate level in 2018, will recheck Tobacco abuse - nicotine patch DVT prophylaxis: patient is ambulating Code status: full code
[2019-03-11] MEDS ORDERED: Albuterol Sulfate 1.25 MG/3 ML NEB IPPB PRN (15:00)
[2019-03-11 15:23] LABS: Anion Gap 14 mmol/L (10-20); BUN (Urea Nitrogen) 45 mg/dL (9.8-20.1); Calc. Creatinine Clearance 31 mL/min (70-130); Calcium 9.3 mg/dL (7.8-10.44); Carbon Dioxide 27 mmol/L (23-31); Chloride 101 mmol/L (98-107); Estimated GFR-MDRD 23; Glucose 158 mg/dL (80-115); Potassium 4.5 mmol/L (3.5-5.1); Sodium 137 mmol/L (136-145)
[2019-03-11] MEDS: Simvastatin 40 MG TAB PO SCH (21:29)
[2019-03-11] MEDS: Ezetimibe 10 MG TAB PO SCH (21:29)
[2019-03-11] MEDS: Nicotine 14 MG PATCH TD SCH (21:35)
[2019-03-12] MEDS: clonazePAM 0.5 MG TAB PO PRN (02:05)
[2019-03-12 04:54] LABS: ALT (SGPT) 12 U/L (8-55); AST (SGOT) 20 U/L (5-34); Albumin 3.6 g/dL (3.4-4.8); Alkaline Phosphatase 72 U/L (40-110); Anion Gap 14 mmol/L (10-20); BUN (Urea Nitrogen) 59 mg/dL (9.8-20.1); Bilirubin, Total 0.2 mg/dL (0.2-1.2); Calc. Creatinine Clearance 28 mL/min (70-130); Calcium 9.4 mg/dL (7.8-10.44); Carbon Dioxide 25 mmol/L (23-31); Chloride 102 mmol/L (98-107); Estimated GFR-MDRD 21; Glucose 139 mg/dL (80-115); Potassium 4.9 mmol/L (3.5-5.1); Protein, Total 6.6 g/dL (6.0-8.3); Sodium 136 mmol/L (136-145)
[2019-03-12 05:10] LABS: Hemoglobin 9.6 g/dL (12.0-16.0); Mean Corpuscular HGB CONC 33.8 g/dL (32.0-36.0); Mean Corpuscular Hemoglobin 31.6 pg (27.0-31.0); Mean Corpuscular Volume 93.5 fL (78.0-98.0); Platelet Count 192 thou/uL (130-400); RBC Distribution Width 12.5 % (11.5-14.5); Red Blood Cell (RBC) Count 3.03 mill/uL (4.20-5.40); White Blood Cell (WBC) Count 8.3 thou/uL (4.8-10.8)
[2019-03-12 07:17] LABS: Bilirubin Negative (Negative); Blood, Urine Negative (Negative); Clarity Turbid (Clear); Glucose, Urine (Dipstick) Normal (Negative); Leukocyte 500 Leu/uL (Negative); Nitrite Negative (Negative); Protein, Urine (Dipstick) Negative (Neg-Trace); RBC/HPF 0-3 HPF (0-3); Squamous Epithelial 0-3 HPF (0-3); Urobilinogen Normal mg/dL (Less than 2); WBC/HPF Greater than 50 HPF (0-3)
[2019-03-12 07:25] LABS: Bacteria/HPF 1+ HPF (None Seen)
[2019-03-12 07:26] LABS: Urine Culture Reflex Yes Yes
[2019-03-12] MEDS: Enoxaparin Sodium 30 MG/0.3 ML SYRINGE SC SCH (08:53)
[2019-03-12] MEDS: guaiFENesin ER 600 MG TAB PO SCH (08:53)
[2019-03-12] MEDS: Aspirin 325 mg Enteric Coated Tablet PO SCH (08:54)
[2019-03-12] MEDS: pyridOXINE 50 MG (B6) TAB PO SCH (08:54)
[2019-03-12] MEDS: Oxybutynin 5 MG TAB PO SCH (08:54)
[2019-03-12] MEDS: Famotidine 20 MG TAB PO SCH (08:54)
[2019-03-12] MEDS: Docusate 100 MG CAP PO SCH (08:54)
[2019-03-12] MEDS: Amlodipine 10 MG TAB PO SCH (08:55)
[2019-03-12] MEDS: Escitalopram Oxalate 20 mg Tablet PO SCH (08:55)
[2019-03-12] MEDS: predniSONE 20 MG TAB PO SCH (08:55)
[2019-03-12] MEDS: Montelukast Sodium 10 mg Tablet PO SCH (08:56)
[2019-03-12] MEDS ORDERED: Folic Acid 1 MG TAB PO SCH (09:46)
--- NOTE | 2019-03-12 12:59 | ULT ---
Renal ultrasound: 03/12/2019 COMPARISON: None available HISTORY: Elevated creatinine, urinary retention TECHNIQUE: Multiplanar grayscale sonographic imaging of the kidneys and urinary bladder obtained. FINDINGS: The right kidney measures 7.2 x 3.1 x 3.7 cm and demonstrates no evidence for stone, hydron ephrosis, or mass. Left kidney measures 9.1 x 5.5 x 3.6 cm and demonstrates no hydronephrosis, stone, or mass. Urinary b ladder appears grossly unremarkable. Urinary bladder volume is 87 cc. IMPRESSION: Small right kidney. No hydronephrosis.
--- NOTE | 2019-03-12 14:30 | PRG ---
DATE OF SERVICE: 03/12/2019 SUBJECTIVE: A 64-year-old female, being seen for acute kidney injury. The patient denied nausea, vomiting, or chest pain. OBJECTIVE: See above. Awake, alert, in no acute distress. VITAL SIGNS: Afebrile, pulse 76, breathing 16, blood pressure 120/59. GENERAL APPEARANCE AND MENTAL STATUS: Fair. HEAD/NECK: Normocephalic. Atraumatic. EYES: EOMI. No deformity. EARS: Clear. No ulcers. NOSE: Intact. No lesions. MOUTH: Clear. No discharge. THROAT: Clear. No exudate. LUNGS: Clear. No crackles. CARDIAC: S1, S2. No rub. ABDOMEN: Benign. Bowel sounds positive. GENITALIA/RECTUM: Brock absent. BACK/EXTREMITIES: Edema 0+. NEUROLOGICAL: Alert and motor intact. SKIN: LYMPHATICS: LABORATORY DATA: Reviewed. ASSESSMENT AND PLAN: 1. Chronic kidney disease stage 4 with acute kidney injury, most likely due to congestive heart failure, increased hydration. 2. Hypertension, stable. 3. Anemia, stable. Medications based on GFR appropriate. Job ID: [id number]
[2019-03-12] MEDS: HYDROcodone/Acetaminophen 10/325 mg Tablet PO PRN (16:21)
[2019-03-12 17:55] VITALS: BP 126/60; TEMP 98
--- NOTE | 2019-03-13 09:11 | CON ---
DATE OF CONSULTATION: HISTORY OF PRESENT ILLNESS: Ms. Logan is a 64-year-old female. She was admitted on 03/06 with complaints of wheezing and shortness of breath. It must be noted that she stopped all of her inhaler medicines. She did not start using a nebulizer until just prior to coming to the emergency department. She subsequently was admitted. Apparently, she has been difficult to deal with from hospitalist perspective. This is consistent with her behavior in the past. In my opinion, looking at her and examining her, she is back to her baseline. PAST MEDICAL HISTORY: Remarkable for 1. Hypertension. 2. Chronic kidney disease . 3. COPD . 4. Obesity. 5. Diabetes. 6. History of small bowel obstruction with laparoscopic lysis of adhesions recently. 7. Status post hysterectomy. 8. History of bladder suspension. 9. Back surgery. She admitted to the admitting hospitalist and she was smoking 5 cigarettes a day. She does not admit it to me that she is smoking now for several years. She denied alcohol on coming in. As long as I have known her, I have never known her not to be drinking. She was drinking 6-12 beers in the evening in the past. She says she is not drinking. REVIEW OF SYSTEMS: Negative. MEDICATIONS: Prior to admission, she is on, 1. Lexapro. 2. Hydroxyzine. 3. Metoprolol. 4. ProAir. 5. [place]. 6. Losartan. 7. Elavil. 8. DuoNeb. 9. Tizanidine. In the past, she has been on high doses of alprazolam. PHYSICAL EXAMINATION: VITAL SIGNS: Afebrile, heart rate is 80, respiratory rate 16, sats 95% on room air, blood pressure 163/74. HEAD AND NECK: Unremarkable. LUNGS: Completely clear. HEART: Regular rhythm. S1 and S2 are normal. ABDOMEN: Soft and nontender. EXTREMITIES: No edema at this time. IMPRESSION: Reported history of chronic obstructive pulmonary disease exacerbation on admission. She really probably does need to be on a tapering dose of prednisone to try and decrease her chances of bouncing back after discharge. She does not want to be discharged, but in my opinion, she is stable to be discharged first thing in the morning. We would taper her prednisone over 2 weeks. Noncompliance with medical management is one of the bigger problems that we have always dealt with and Joseline tends to want to do everything on her terms. Her points of frustration with the hospitalists are entirely related to her perception that they are not doing what she needs. I have explained to her that the hospital is not [facility] she can come in order off the menu for what she wants. We will see her as needed as an outpatient. Job ID: [id number]
--- NOTE | 2019-03-13 14:41 | DIS ---
DATE OF ADMISSION: 03/09/2019 DATE OF DISCHARGE: 03/12/2019 DISCHARGE DIAGNOSES: Acute diastolic congestive heart failure exacerbation,. Acute chronic obstructive pulmonary disease exacerbation, E coli UTI hypokalemia, hypomagnesemia, aortic stenosis, folate deficiency anemia, acute kidney injury SECONDARY DISCHARGE DIAGNOSES: Chronic kidney disease stage 4, tobacco abuse, hypertension, chronic diarrhea. CONSULTATIONS: Nephrology with Dr. Pride. PROCEDURES: None. BRIEF HISTORY OF PRESENT ILLNESS: This is a 64-year-old female patient with a past medical history of CKD stage 4, hypertension, obesity, diabetes, mitral valve stenosis/prolapse, who presented to emergency room with sudden onset wheezing and shortness of breath. She reported taking multiple doses of nebulizer without any relief. Upon presentation to the ER, her oxygen saturation was 93% on room air and her vitals were normal. She had a BNP done that was 2106. She had a chest x- ray, which showed some mild pulmonary edema. She was initially admitted to the hospital for possible CHF exacerbation. Acute diastolic CHF exacerbation: The patient was initially started on oral Lasix 40 mg daily. She received this from the to . Her creatinine was noted to increase from 1.7 to 2.31. Lasix was discontinued on the . The patient stated that she was starting to have trouble urinating, so the patient did not want any further doses of Lasix. She had an echocardiogram done on the , which had showed an EF of 55% to 60%, with mild TR and mild TR so this wasn't repeated since troponins were negative. She was advised to cut back on her salt intake and avoid eating frozen foods. She could follow up with her PCP in a week and have her BMP rechecked. The patient should also have repeat chest x-ray as an outpatient for assessment of resolution of pulmonary edema; however, on exam today, the patient's lungs were clear and she was not requiring any oxygen, therefore, this was deferred. Acute COPD exacerbation: The patient was noted to have persistent wheezing. She was seen by her certified cytotechnologist, Dr. Sanford in the hospital. She was started on prednisone 40 mg on the . She was also given a standing DuoNeb treatment q.6 hours with improvement. On 03/11, the patient lungs were noted to be clear, however, she did not want to be discharged because she felt like her exercise capacity was not back to her baseline. She was monitored for one more day. She will be discharged with prednisone for additional 3 days and doxycycline for atypical coverage for 5 days. She will also be prescribed Pulmicort and spiriva should be resumed. She was given duoneb nebulizer on discharge as well for prn use. Acute kidney injury: The patient initially had presented with a creatinine of 1.70. This had increased to 2.31 with administration of Lasix. Further Lasix was discontinued and her creatinine seemed to range from 2.[address] Pride was comfortable with this number and felt that she could be followed as an outpatient. She did have a renal ultrasound done on the , which showed a small right kidney and no hydronephrosis. Her UA did not show any RBCs, but did show evidence of UTI, which she will be treated for. E coli UTI: The patient had a condom wick placed earlier in admission and after removal reported some irritation and dysuria. UA showed turbid urine with 500 leukocyte esterase and greater than 50 white blood cells. Urine culture was pending at the time of discharge, but is now growing E coli. Sensitivities currently pending. She was discharged on augmentin for five days empirically due to allergy to bactrim and fluoroquinolone. . Tobacco abuse: The patient was discharged on nicotine patch daily. Folate deficiency anemia: The patient was noted to have a hemoglobin of 9.6/ 28.3. Her vitamin B12 was elevated at 1063 and her folate was low at 4.50. She was started on folic acid supplements daily. This should be followed up and repeated as an outpatient. Hypokalemia/hypomagnesemia: The patient had some issues with low potassium and low magnesium during her hospital stay. These were most likely secondary to chronic diarrhea that the patient has been having since her gallbladder was removed. Currently, her potassium is normal at 4.9 and her magnesium was 1.8 yesterday. She can have her chronic diarrhea further managed as an outpatient. Mild aortic stenosis: The patient was noted to have mild aortic stenosis on her last echo on 01/18. She was noted to have a murmur on physical exam in the right second intercostal space. She was advised to consider follow up ultrasound as an outpatient. DISCHARGE PHYSICAL EXAMINATION: VITAL SIGNS: Temperature 98.1, heart rate 76, blood pressure 120/59, and O2 saturation is 94% on room air. GENERAL: The patient is overweight, in no acute distress. CVS: Regular rate and rhythm with a systolic murmur in the right second intercostal space. No rubs or gallops. LUNGS: Clear to auscultation bilaterally. ABDOMEN: Positive bowel sounds, soft, nontender, nondistended. EXTREMITIES: No edema present. PERTINENT LABORATORY DATA: CBC 03/12: Her hemoglobin is 9.6, hematocrit is 98.3. White count is 8.3 today, but was 14.8 on the . BMP 03/12: Creatinine was 2.32. Rest of BMP is unremarkable. LFTs: AST 20, ALT 12, alkaline phosphatase 72. Vitamin B12: 1063. Folate: 4.50, which is low. UA 03/12: Turbid urine, 500 leukocyte esterase, greater than 50 white blood cells, 1+ amorphous crystals, 1+ bacteria. Urine culture: E coli for now, sensitivities pending PERTINENT IMAGING: Chest x-ray 03/06: Bilateral interstitial densities, which may represent pulmonary interstitial edema. Renal ultrasound 03/12: Small right kidney with no hydronephrosis. DISCHARGE CONDITION: Stable on room air. ACTIVITY: As tolerated. DIET RESTRICTION: Heart healthy diet. The patient was advised to avoid excessive amounts of salt or fluid. DISCHARGE MEDICATIONS: New prescriptions: 1. Nicotine patch 14 mg TD q.24. 2. Augmentin 500/125 tablet, take one tablet each p.o. b.i.d. 3. Pulmicort inhaler 2 puffs inhalation b.i.d. 4. Doxycycline 100 mg p.o. b.i.d. for 5 days. 5. Folic acid 1 mg p.o. daily. 6. DuoNeb q.6 hours p.r.n. if wheezing. 7. Prednisone 40 mg p.o. q.a.m. for 3 more days. All other home medications were resumed. DISCHARGE INSTRUCTIONS: The patient is to follow up with her PCP in a week and have repeat BMP and chest Xray to evaluate resolution of pulmonary edema. Also needs f/u of E coli urine sensitivities, she is being discharged on augmentin. She was started on Pulmicort inhaler and was advised to continue Spiriva. She should follow up with Dr. Hendricks in a week. She was advised to avoid high salt and excessive amounts of fluid due to her heart failure history. Job ID: [id number] MTDD
== END 2019-03-12 18:10 | disposition home or self-care (01) | DRG 291 ==
LOC: ERS 15:33 → 2SW 20:22 → OBSVTOIN 03-09 07:33 → 2NO 03-11 17:48
PROVIDERS: ADMIT Internal Medicine; ATTEND Internal Medicine
DX: I13.0 Hypertensive heart and chronic kidney disease with heart failure and stage 1 through stage 4 chronic kidney disease, or unspecified chronic kidney disease (principal); N17.0 Acute kidney failure with tubular necrosis; I50.33 Acute on chronic diastolic (congestive) heart failure; J96.21 Acute and chronic respiratory failure with hypoxia; N18.4 Chronic kidney disease, stage 4 (severe); J44.1 Chronic obstructive pulmonary disease with (acute) exacerbation; N39.0 Urinary tract infection, site not specified; B96.20 Unspecified Escherichia coli [E. coli] as the cause of diseases classified elsewhere; E87.6 Hypokalemia; E83.42 Hypomagnesemia; I35.0 Nonrheumatic aortic (valve) stenosis; D52.9 Folate deficiency anemia, unspecified; F41.1 Generalized anxiety disorder; G89.29 Other chronic pain; K21.9 Gastro-esophageal reflux disease without esophagitis; E78.00 Pure hypercholesterolemia, unspecified; E78.5 Hyperlipidemia, unspecified; M19.90 Unspecified osteoarthritis, unspecified site; D63.1 Anemia in chronic kidney disease; K52.9 Noninfective gastroenteritis and colitis, unspecified; E66.9 Obesity, unspecified; E11.22 Type 2 diabetes mellitus with diabetic chronic kidney disease; F32.9 Major depressive disorder, single episode, unspecified; Z87.01 Personal history of pneumonia (recurrent); Z90.710 Acquired absence of both cervix and uterus; Z90.49 Acquired absence of other specified parts of digestive tract; Z87.891 Personal history of nicotine dependence; Z88.2 Allergy status to sulfonamides; Z88.8 Allergy status to other drugs, medicaments and biological substances
CPT/HCPCS: 36415; 36416; 71045; 76770; 80048; 80053; 81001; 82550; 82607; 82746; 83735; 83880; 84484; 85025; 85027; 87077; 87086; 87186; 93005; 94640; 96374; J1650; J1940; J3475; J7512; J7620

== ENCOUNTER 2019-04-13 08:04 | Inpatient (IN) | payer MEDICARE, MEDICAID ==
[2019-04-13] MEDS ORDERED: Albuterol Sulfate 2.5 mg/0.5 ml Neb ONE (08:26)
[2019-04-13] MEDS ORDERED: Albuterol Sulfate 2.5 mg/3 ml Neb ONE (08:26)
[2019-04-13] MEDS ORDERED: Magnesium 2 GM/50 ML BAG (IN WATER) ONE (08:41)
[2019-04-13] MEDS ORDERED: cefTRIAXone\\ROCEPHIN 2 GM VIAL ONE (08:42)
[2019-04-13 08:53] LABS: #Basophils 0.1 thou/uL (0.0-0.2); #Lymphocytes 2.1 thou/uL (1.20-3.40); #Neutrophils 10.6 thou/uL (1.40-6.50); %Basophils 0.4 % (0.0-1.0); %Eosinophils 0.2 % (0.0-10.0); %Lymphocytes 15.2 % (21.0-51.0); %Monocytes 7.5 % (0.0-10.0); %Neutrophils 76.7 % (42.0-75.0); Hemoglobin 10.1 g/dL (12.0-16.0); Mean Corpuscular HGB CONC 33.1 g/dL (32.0-36.0); Mean Corpuscular Hemoglobin 30.6 pg (27.0-31.0); Mean Corpuscular Volume 92.4 fL (78.0-98.0); Platelet Count 277 thou/uL (130-400); RBC Distribution Width 12.2 % (11.5-14.5); Red Blood Cell (RBC) Count 3.29 mill/uL (4.20-5.40); White Blood Cell (WBC) Count 13.8 thou/uL (4.8-10.8)
[2019-04-13 08:59] LABS: Actual Bicarbonate (HCO3a) 23.6 mEq/L (22-28); Analyzer IN Cardio ER; Base Excess (BEa) -2.4 mEq/L (-2.0 to +3.0); CO2 Tension 45.5 mmHg (35.0-45.0); Calcium, Ionized 1.18 mmol/L (1.12-1.30); Carboxyhemoglobin (COHb) 0.6 gm% (0.0-3.0); Hemoglobin (Hb) 10.4 g/dL (12.0-16.0); O2 Tension (PaO2) 73.1 mmHg (> 80.0); Potassium - ABG Lab 4.41 mmol/L (3.70-5.30); pH, Arterial 7.33 (7.35-7.45)
[2019-04-13 09:01] LABS: ALV-art Gradient 69.665 (0-20)
[2019-04-13 09:26] LABS: ALT (SGPT) 17 U/L (8-55); AST (SGOT) 23 U/L (5-34); Albumin 3.8 g/dL (3.4-4.8); Alkaline Phosphatase 81 U/L (40-110); Anion Gap 17 mmol/L (10-20); BUN (Urea Nitrogen) 42 mg/dL (9.8-20.1); Bilirubin, Total 0.3 mg/dL (0.2-1.2); Calc. Creatinine Clearance 0 mL/min (70-130); Calcium 8.7 mg/dL (7.8-10.44); Carbon Dioxide 23 mmol/L (23-31); Chloride 104 mmol/L (98-107); Estimated GFR-MDRD 22; Globulin 2.6 g/dL (2.4-3.5); Glucose 125 mg/dL (80-115); Magnesium 1.6 mg/dL (1.6-2.6); Potassium 4.7 mmol/L (3.5-5.1); Protein, Total 6.4 g/dL (6.0-8.3); Sodium 139 mmol/L (136-145)
--- NOTE | 2019-04-13 09:44 | RAD ---
CHEST 1 VIEW PORTABLE: Date: 04/13/19 HISTORY: COPD, difficulty breathing. COMPARISON: 03/06/19. FINDINGS: Patchy bilateral alveolar nodular parenchymal changes, worsening from 03/06/19. This certainly could represent patchy pneumonia, worse on the left side. Heart size is upper range of normal. No significa nt pleural effusion. IMPRESSION: Patchy bilateral alveolar nodular parenchymal changes, worse on the left lung, as well as some increa sed interstitial markings bilaterally, showing definite worsening when compared to 03/06/19. Correlat e clinically. POS: TPC
[2019-04-13] MEDS ORDERED: Furosemide 20 MG/2 ML VIAL ONE (10:56)
[2019-04-13 12:39] LABS: Troponin I Less than 0.010 ng/mL (< 0.028)
--- NOTE | 2019-04-13 14:39 | PDOC.HHP ---
Hospitalist HPI - History of Present Illness Shortness of breath History of Present Illness: 64 yo female with COPD is here due to sudden onset of SOB that started last night at 10 PM. She states she took 4 breathing treatments overnight with no resolution. So, she called EMS this morning. She reports SOB at rest and orthopnea. Denies PND. Worsened with activity and relieved with rest, nebs and diuretics. Reports cough with white sputum. Reports wheezing, lightheadedness this morning and nausea. No V/D/C, abd. pain. Reports pain with urination that is new. 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 Reports recent sick contacts with a child of a family friend and eating out. No recent travel history. No CP, palpitations , fever, chills. No rash or bruising. No headache. ED Course: Given nebs and iv diuretic with partial improvement of shortness of breath. Given IV ABX. 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 Gastrointestinal: reports: GERD Psych: reports: Anxiety, Depression Renal/: reports: Chronic renal failure - Past Surgical History Past Surgical History: reports: Cholecystectomy, Hysterectomy - Family History Family History: reports: no pertinent history (reviewed) - Social History Smoking Status: Smokes 0-10 cigs daily Tobacco Type: cigarettes Alcohol: reports: Rare Drugs: reports: none Living Situation: With Family (with [id number]) Activity level: independent ambulation - Exam General Appearance: awake alert, ill appearing Eye: PERRL, anicteric sclera ENT: normocephalic atraumatic, no oropharyngeal lesions, moist mucosa Neck: supple, symmetric, no JVD, no thyromegaly, no lymphadenopathy, no carotid bruit Heart: RRR, no gallops, no rubs, normal peripheral pulses, murmur present ( systolic in mitral area) Respiratory: normal chest expansion, no tachypnea, normal percussion, rales ( bilateral lower lobes) Respiratory - other findings: reduced air entry bilaterally Gastrointestinal: soft, non-tender, non-distended, normal bowel sounds, no palpable masses Extremities: no cyanosis, no clubbing, no edema Skin: normal turgor, no lesions, no rashes Neurological: cranial nerve grossly intact, normal sensation to touch, no focal deficits Musculoskeletal: normal tone, normal strength, no muscle wasting Psychiatric: normal affect, normal behavior, A&O x 3 Hospitalist Results - Labs Result Diagrams: 04/13/19 08:27 04/13/19 08:27 Lab results: WBC 13.8 thou/uL (4.8-10.8) H 04/13/19 08:27 Hgb 10.1 g/dL (12.0-16.0) L 04/13/19 08:27 Hct 30.4 % (36.0-47.0) L 04/13/19 08:27 MCV 92.4 fL (78.0-98.0) 04/13/19 08:27 Plt Count 277 thou/uL (130-400) 04/13/19 08:27 Neutrophils % 76.7 % (42.0-75.0) H 04/13/19 08:27 ABG pH 7.33 (7.35-7.45) L 04/13/19 08:50 ABG pCO2 45.5 mmHg (35.0-45.0) H 04/13/19 08:50 ABG pO2 73.1 mmHg (> 80.0) 04/13/19 08:50 Sodium 139 mmol/L (136-145) 04/13/19 08:27 Potassium 4.7 mmol/L (3.5-5.1) 04/13/19 08:27 Chloride 104 mmol/L (98-107) 04/13/19 08:27 Carbon Dioxide 23 mmol/L (23-31) 04/13/19 08:27 BUN 42 mg/dL (9.8-20.1) H 04/13/19 08:27 Creatinine 2.25 mg/dL (0.6-1.1) H 04/13/19 08:27 Glucose 125 mg/dL (80-115) H 04/13/19 08:27 Lactic Acid 1.4 mmol/L (0.5-2.2) 04/13/19 08:27 Calcium 8.7 mg/dL (7.8-10.44) 04/13/19 08:27 Total Bilirubin 0.3 mg/dL (0.2-1.2) 04/13/19 08:27 AST 23 U/L (5-34) 04/13/19 08:27 ALT 17 U/L (8-55) 04/13/19 08:27 Alkaline Phosphatase 81 U/L (40-110) 04/13/19 08:27 Troponin I Less than 0.010 ng/mL (< 0.028) 04/13/19 11:55 B-Natriuretic Peptide 1148.3 pg/mL (0-100) H 04/13/19 08:27 Serum Total Protein 6.4 g/dL (6.0-8.3) 04/13/19 08:27 Albumin 3.8 g/dL (3.4-4.8) 04/13/19 08:27 - EKG Interpretation EKG: Personally reviewed - Sinus rhythm; No ST-T changes concerning for ischemia - Radiology Interpretation Chest x-ray Status: image reviewed by me (bilateral diffuse interstitial markings and alveolar infiltrates) Other Additional Comment: ECHO 02/04: EF 55-60% LVDD Mild MR Hospitalist H&P A/P - Problem (1) SOB (shortness of breath) Code(s): R06.02 - SHORTNESS OF BREATH Status: Acute Assessment and Plan: Pt. has orthopnea, SOB and cough with sputum COPD vs CHF exacerbation Admit to inpatient status IV diuretics, IV abx, IV steroids High risk due to need for IV abx and steroids and risk of worsening resp. failure Fluid restriction, Salt restriction Daily weights Strict I/Os (2) COPD (chronic obstructive pulmonary disease) Status: Chronic Qualifiers: COPD type: COPD with acute exacerbation Qualified Code(s): J44.1 - Chronic obstructive pulmonary disease with (acute) exacerbation Assessment and Plan: As above, iv steroids and abx Nebs (3) Acute respiratory failure with hypoxia Code(s): J96.01 - ACUTE RESPIRATORY FAILURE WITH HYPOXIA Status: Acute Assessment and Plan: Related to COPD vs CHF exacerbation Keep sats 88-92% Wean as tolerated (4) CKD (chronic kidney disease) stage 3, GFR 30-59 ml/min Status: Chronic Assessment and Plan: Mild worsening of renal function from baseline Gentle diuresis Avoid nephrotoxic meds and hypotension if renal function worsens, will consider renal consult (5) Dyslipidemia Code(s): E78.5 - HYPERLIPIDEMIA, UNSPECIFIED Status: Chronic Assessment and Plan: STatin therapy (6) Hypertension Code(s): I10 - ESSENTIAL (PRIMARY) HYPERTENSION Status: Chronic Qualifiers: Hypertension type: essential hypertension Assessment and Plan: Stable BP Hold HTN meds as she will be on IV diuretics (7) GERD (gastroesophageal reflux disease) Code(s): K21.9 - GASTRO-ESOPHAGEAL REFLUX DISEASE WITHOUT ESOPHAGITIS Status: Chronic Qualifiers: Esophagitis presence: esophagitis presence not specified Qualified Code(s) : K21.9 - Gastro-esophageal reflux disease without esophagitis Assessment and Plan: Stable
[2019-04-13] MEDS ORDERED: Acetaminophen 325 MG TAB PO PRN (16:11)
[2019-04-13] MEDS ORDERED: Ondansetron ODT 4 MG TAB SL PRN (16:11)
[2019-04-13] MEDS ORDERED: Ondansetron PF 4 MG/2 ML Vial IVP PRN (16:11)
[2019-04-13 16:17] LABS: Troponin I 0.016 ng/mL (< 0.028)
[2019-04-13] MEDS ORDERED: Albuterol Sulfate 2.5 mg/3 ml Neb NEB PRN (18:20)
[2019-04-13] MEDS: Ipratropium Bromide 2.5 ml Neb NEB SCH ×3 (18:54→22:27)
[2019-04-13] MEDS: Heparin 5,000 UNITS/ML VIAL SC SCH ×2 (19:30→20:23)
[2019-04-13] MEDS ORDERED: Furosemide 40 MG/4 ML VIAL SLOW IVP SCH (21:00)
[2019-04-13] MEDS ORDERED: methylPREDNISolone Sod Succ 40 MG VIAL IVP SCH ×2 (21:00)
--- NOTE | 2019-04-13 23:10 | CON ---
DATE OF CONSULTATION: 04/13/2019 CONSULTING PHYSICIAN: Dr. Tay. REASON FOR CONSULTATION: Acute kidney injury. REASON FOR ADMISSION: Shortness of breath. HISTORY OF PRESENT ILLNESS: This is a 64-year-old female, with history of CKD, hypertension, hyperlipidemia, COPD, came to the hospital with shortness of breath and being treated for COPD and CHF, and she is on diuretics. Nephrology consulted because of acute kidney injury. She does follow with Dr. Pride. She is feeling slightly better. She complains of insomnia. PAST MEDICAL HISTORY: Positive for CKD, hypertension, hyperlipidemia, COPD, TIA, anxiety, depression. PAST SURGICAL HISTORY: Cholecystectomy, hysterectomy. HOME MEDICATIONS: Reviewed. ALLERGIES: TO SULFA, CLINDAMYCIN, METFORMIN, NAPROXEN, TRAMADOL. SOCIAL HISTORY: Smokes 10 cigarettes per day. No alcohol or illicit drug abuse. FAMILY HISTORY: No history of kidney disease. REVIEW OF SYSTEMS: CONSTITUTIONAL: Negative for weight loss or gain, ability to conduct usual activities. SKIN: Negative for rash, itching. EYES: Negative for double vision, pain. ENT/MOUTH: Negative for nose bleeding, neck stiffness, pain, tenderness. CARDIOVASCULAR: Negative for palpitations, dyspnea on exertion, orthopnea. RESPIRATORY: Negative for shortness of breath, wheezing, cough, hemoptysis, fever or night sweats. GASTROINTESTINAL: Negative for poor appetite, abdominal pain, heartburn, nausea, vomiting, constipation, or diarrhea. GENITOURINARY: Negative for urgency, frequency, dysuria, nocturia. MUSCULOSKELETAL: Negative for pain, swelling. NEUROLOGIC/PSYCHIATRIC: Negative for anxiety, depression. ALLERGY/IMMUNOLOGIC: Negative for skin rash, bleeding tendency. Rest all negative review of systems. PHYSICAL EXAMINATION: GENERAL: This is an obese female, in no apparent distress. VITAL SIGNS: Temperature 98.4, pulse 70, respiratory rate 18, blood pressure 164/68. HEENT: Atraumatic, normocephalic. Oral mucosa moist. NECK: Supple. CVS: S1, S2 heard. Rate and rhythm regular. RESPIRATORY: Clear. GI: Abdomen is soft. MUSCULOSKELETAL: 1+ edema. DERMATOLOGIC: No skin rash. NEUROLOGIC: Alert and awake. PSYCHIATRIC: Normal mood and affect. LABORATORY DATA: Hemoglobin is 10.1, potassium 4.7, BUN is 42, and creatinine is 2.2 from baseline of 2.3. ASSESSMENT AND PLAN: 1. Acute kidney injury on chronic kidney disease, stage 4, stable. 2. Elevated BNP. Continue with diuretics as tolerated. 3. Anemia . 4. Hypertension. 5. Edema. 6. Shortness of breath. 7. Continue current management. Continue diuretics. We will follow renal function. Avoid nephrotoxins. We will follow. Thank you for the consult. Job ID: [id number]
[2019-04-13] MEDS ORDERED: HYDROcodone/Acetaminophen 10/325 mg Tablet PO PRN (23:25)
[2019-04-14] MEDS: Ipratropium Bromide 2.5 ml Neb NEB SCH ×5 (02:16→19:32)
[2019-04-14 05:25] LABS: #Lymphocytes 0.6 thou/uL (1.20-3.40); #Monocytes 0.5 thou/uL (0.11-0.59); %Basophils 0.1 % (0.0-1.0); %Eosinophils 0.1 % (0.0-10.0); %Monocytes 7.1 % (0.0-10.0); %Neutrophils 84.7 % (42.0-75.0); Hemoglobin 10.2 g/dL (12.0-16.0); Mean Corpuscular HGB CONC 33.5 g/dL (32.0-36.0); Mean Corpuscular Hemoglobin 30.4 pg (27.0-31.0); Mean Corpuscular Volume 90.8 fL (78.0-98.0); Mean Platelet Volume 8.3 fL (7.4-10.4); Platelet Count 253 thou/uL (130-400); RBC Distribution Width 11.9 % (11.5-14.5); Red Blood Cell (RBC) Count 3.34 mill/uL (4.20-5.40); White Blood Cell (WBC) Count 7.1 thou/uL (4.8-10.8)
[2019-04-14 05:42] LABS: ALT (SGPT) 14 U/L (8-55); AST (SGOT) 15 U/L (5-34); Albumin 3.9 g/dL (3.4-4.8); Alkaline Phosphatase 85 U/L (40-110); Anion Gap 15 mmol/L (10-20); BUN (Urea Nitrogen) 49 mg/dL (9.8-20.1); Bilirubin, Total 0.2 mg/dL (0.2-1.2); Calc. Creatinine Clearance 27 mL/min (70-130); Calcium 9.2 mg/dL (7.8-10.44); Carbon Dioxide 30 mmol/L (23-31); Chloride 96 mmol/L (98-107); Estimated GFR-MDRD 22; Globulin 3.1 g/dL (2.4-3.5); Glucose 139 mg/dL (80-115); Potassium 5.1 mmol/L (3.5-5.1); Sodium 136 mmol/L (136-145)
[2019-04-14] MEDS ORDERED: Furosemide 40 MG/4 ML VIAL SLOW IVP SCH (06:00)
[2019-04-14] MEDS: Azithromycin 250 MG TAB PO SCH (09:12)
[2019-04-14] MEDS: Folic Acid 1 MG TAB PO SCH (09:12)
[2019-04-14] MEDS: Escitalopram Oxalate 20 mg Tablet PO SCH (09:12)
[2019-04-14] MEDS: Montelukast Sodium 10 mg Tablet PO SCH (09:12)
[2019-04-14] MEDS: Nicotine 14 MG PATCH TD SCH (09:12)
[2019-04-14] MEDS: cefTRIAXone\\ROCEPHIN 1 GM in Sodium Chloride 0.9% 100 ML IVPB SCH (09:13)
[2019-04-14] MEDS: Heparin 5,000 UNITS/ML VIAL SC SCH ×3 (09:13→21:43)
[2019-04-14] MEDS: hydrOXYzine 25 MG TAB PO PRN ×2 (09:16→21:44)
[2019-04-14] MEDS: HYDROcodone/Acetaminophen 10/325 mg Tablet PO PRN ×3 (11:14→23:39)
--- NOTE | 2019-04-14 12:29 | PDOC.HOSPP ---
- Subjective Encounter Date: 04/14/19 Encounter Time: 12:29 Subjective: Patient reports her breathing is better. Reports cough with sputum. No fever or chills overnight. No headache. She is requesting a bigger room. No CP, palpitations. Seen by renal. - Objective Vital Signs & Weight: Vital Signs (12 hours) Temp Pulse Resp BP Pulse Ox 04/14/19 11:15 68 148/86 H 04/14/19 10:50 98.4 F 83 14 200/86 H 90 L 04/14/19 09:55 66 16 04/14/19 08:07 98.3 F 66 18 178/74 H 92 L 04/14/19 04:00 98.4 F 74 22 H 121/59 L 95 04/14/19 02:16 71 20 88 L Weight Weight 153 lb I&O: 04/13/19 04/14/19 04/15/19 06:59 06:59 06:59 Intake Total 780 Output Total 500 Balance 280 Result Diagrams: 04/14/19 04:50 04/14/19 04:50 Hospitalist ROS - Medication Medications: Active Medications Generic Name Dose Route Start Last Admin Trade Name Freq PRN Reason Stop Dose Admin Hydrocodone Bitart/Acetaminophen 2 tab 04/14/19 08:23 04/14/19 11:14 [place] 10/325 PO 2 tab Q6H PRN Administration Severe Pain (7-10) Azithromycin 500 mg 04/14/19 09:00 04/14/19 09:12 Zithromax PO 500 mg DAILY GUILLE Administration Escitalopram Oxalate 20 mg 04/14/19 09:00 04/14/19 09:12 Lexapro PO 20 mg DAILY GUILLE Administration Folic Acid 1 mg 04/14/19 09:00 04/14/19 09:12 Folvite PO 1 mg DAILY GUILLE Administration Heparin Sodium (Porcine) 5,000 units 04/13/19 18:20 04/14/19 09:13 Heparin SC 5,000 units TID GUILLE Administration Hydroxyzine HCl 50 mg 04/14/19 08:19 04/14/19 09:16 Atarax PO 50 mg TIDPRN PRN Administration Anxiety Ceftriaxone Sodium 1 gm/ 100 mls @ 200 mls/hr 04/14/19 09:00 04/14/19 09:13 Sodium Chloride IVPB 100 mls Q24HR@0900 GUILLE Administration Ipratropium [place] 2.5 ml 04/13/19 18:20 04/14/19 09:55 Atrovent NEB 2.5 ml [id number] GUILLE Administration Metoprolol Succinate 50 mg 04/14/19 09:00 04/14/19 09:12 Toprol Xl PO 50 mg DAILY GUILLE Administration Montelukast Sodium 10 mg 04/14/19 09:00 04/14/19 09:12 Singulair PO 10 mg DAILY GUILLE Administration Nicotine 14 mg 04/14/19 08:30 04/14/19 09:12 Nicoderm Patch TD 14 mg Q24HR GUILLE Administration Pantoprazole Sodium 40 mg 04/14/19 09:00 04/14/19 09:12 Protonix PO 40 mg DAILY GUILLE Administration - Exam General Appearance: awake alert, ill appearing Eye: PERRL, anicteric sclera ENT: normocephalic atraumatic, no oropharyngeal lesions, moist mucosa Neck: supple, no thyromegaly, no lymphadenopathy Heart: RRR, no murmur, no gallops, normal peripheral pulses Respiratory - other findings: reduced air entry bilaterally; end expiratory wheezing bilaterally Gastrointestinal: soft, non-tender, non-distended, normal bowel sounds Extremities: no cyanosis, no clubbing, no edema Hosp A/P (1) Bacteremia due to Streptococcus pneumoniae Code(s): R78.81 - BACTEREMIA Status: Acute (2) COPD (chronic obstructive pulmonary disease) Status: Chronic Qualifiers: COPD type: COPD with acute exacerbation Qualified Code(s): J44.1 - Chronic obstructive pulmonary disease with (acute) exacerbation (3) CKD (chronic kidney disease) stage 3, GFR 30-59 ml/min Status: Chronic (4) Dyslipidemia Code(s): E78.5 - HYPERLIPIDEMIA, UNSPECIFIED Status: Chronic (5) Hypertension Code(s): I10 - ESSENTIAL (PRIMARY) HYPERTENSION Status: Chronic Qualifiers: Hypertension type: essential hypertension Qualified Code(s): I10 - Essential (primary) hypertension (6) GERD (gastroesophageal reflux disease) Code(s): K21.9 - GASTRO-ESOPHAGEAL REFLUX DISEASE WITHOUT ESOPHAGITIS Status: Chronic Qualifiers: Esophagitis presence: esophagitis presence not specified Qualified Code(s) : K21.9 - Gastro-esophageal reflux disease without esophagitis - Plan DVT proph w/heparin Hospitalist H&P A/P - Problem (1) Streptococcus pneumoniae bacteremia Continue IV abx DC IV steroids High risk due to need for IV abx and risk of worsening resp. failure Repeat blood cultures today (2) COPD (chronic obstructive pulmonary disease) Status: Chronic Qualifiers: COPD type: COPD with acute exacerbation Qualified Code(s): J44.1 - Chronic obstructive pulmonary disease with (acute) exacerbation Assessment and Plan: IV abx Nebs Improving (3) Acute respiratory failure with hypoxia Code(s): J96.01 - ACUTE RESPIRATORY FAILURE WITH HYPOXIA Status: Acute Assessment and Plan: Related to COPD vs CHF exacerbation Keep sats 88-92% Wean as tolerated (4) CKD (chronic kidney disease) stage 3, GFR 30-59 ml/min Status: Chronic Assessment and Plan: SAMMIE on CKD Nephrology on board Continue diuresis Avoid nephrotoxic meds and hypotension (5) Dyslipidemia Code(s): E78.5 - HYPERLIPIDEMIA, UNSPECIFIED Status: Chronic Assessment and Plan: Continue statin therapy (6) Hypertension Code(s): I10 - ESSENTIAL (PRIMARY) HYPERTENSION Status: Chronic Qualifiers: Hypertension type: essential hypertension Assessment and Plan: Stable BP Hold HTN meds as she is on IV diuretics (7) GERD (gastroesophageal reflux disease) Code(s): K21.9 - GASTRO-ESOPHAGEAL REFLUX DISEASE WITHOUT ESOPHAGITIS Status: Chronic Qualifiers: Esophagitis presence: esophagitis presence not specified Qualified Code(s) : K21.9 - Gastro-esophageal reflux disease without esophagitis Assessment and Plan: Stable
--- NOTE | 2019-04-14 13:19 | PRG ---
DATE OF SERVICE: 04/14/2019 SUBJECTIVE: Patient was seen and examined at bedside and overnight events noted. Patient denies any shortness of breath or chest pain or palpitation. No history of nausea or vomiting or diarrhea or fever or chills or cramps. OBJECTIVE: GENERAL: This is an obese female, in no apparent distress. VITAL SIGNS: Temperature 98.4. Heart rate 82. Respiratory rate 14. Blood pressure 148/86. HEENT: Atraumatic, normocephalic. Oral mucosa is moist. NECK: Supple. CARDIOVASCULAR: S1, S2 heard. Rate and rhythm regular. RESPIRATORY: Clear to auscultation. GASTROINTESTINAL: Abdomen is soft. MUSCULOSKELETAL: No tenderness. No edema. DERMATOLOGIC: No skin rash. NEUROLOGIC: Alert and awake and oriented x3. No focal neurologic deficits. Moving all the extremities. PSYCHIATRIC: Mood and affect normal. ASSESSMENT AND PLAN: Potassium is 5.1, BUN is 49, and creatinine is 2.2. ASSESSMENT AND PLAN: 1. Acute kidney injury on chronic kidney disease, stage 4, stable. 2. Elevated BNP. 3. Edema. 4. Hypertension. 5. Anemia. 6. Mild hyperkalemia. Labs seems to be stable today on Lasix. We will have close monitoring on renal function while on diuretics. Job ID: [id number]
[2019-04-15] MEDS: Ipratropium Bromide 2.5 ml Neb NEB SCH ×7 (00:19→23:58)
[2019-04-15 04:51] LABS: #Lymphocytes 1.9 thou/uL (1.20-3.40); #Monocytes 1.2 thou/uL (0.11-0.59); #Neutrophils 10.5 thou/uL (1.40-6.50); %Eosinophils 0.2 % (0.0-10.0); %Lymphocytes 13.7 % (21.0-51.0); %Neutrophils 77.2 % (42.0-75.0); Hemoglobin 10.6 g/dL (12.0-16.0); Mean Corpuscular HGB CONC 33.7 g/dL (32.0-36.0); Mean Corpuscular Hemoglobin 30.8 pg (27.0-31.0); Mean Corpuscular Volume 91.4 fL (78.0-98.0); Mean Platelet Volume 7.9 fL (7.4-10.4); Platelet Count 238 thou/uL (130-400); RBC Distribution Width 11.9 % (11.5-14.5); Red Blood Cell (RBC) Count 3.43 mill/uL (4.20-5.40); White Blood Cell (WBC) Count 13.6 thou/uL (4.8-10.8)
[2019-04-15 05:11] LABS: Anion Gap 15 mmol/L (10-20); BUN (Urea Nitrogen) 53 mg/dL (9.8-20.1); Calc. Creatinine Clearance 29 mL/min (70-130); Calcium 8.8 mg/dL (7.8-10.44); Carbon Dioxide 27 mmol/L (23-31); Chloride 95 mmol/L (98-107); Estimated GFR-MDRD 24; Glucose 93 mg/dL (80-115); Sodium 132 mmol/L (136-145)
[2019-04-15] MEDS: Escitalopram Oxalate 20 mg Tablet PO SCH (08:47)
[2019-04-15] MEDS: Heparin 5,000 UNITS/ML VIAL SC SCH ×3 (08:47→21:46)
[2019-04-15] MEDS: Montelukast Sodium 10 mg Tablet PO SCH (08:47)
[2019-04-15] MEDS: Nicotine 14 MG PATCH TD SCH (08:47)
[2019-04-15] MEDS: Folic Acid 1 MG TAB PO SCH (08:47)
[2019-04-15] MEDS: Azithromycin 250 MG TAB PO SCH (08:47)
[2019-04-15] MEDS: HYDROcodone/Acetaminophen 10/325 mg Tablet PO PRN ×2 (08:48→15:31)
[2019-04-15] MEDS: hydrOXYzine 25 MG TAB PO PRN ×2 (08:49→23:06)
[2019-04-15] MEDS: cefTRIAXone\\ROCEPHIN 1 GM in Sodium Chloride 0.9% 100 ML IVPB SCH (08:49)
--- NOTE | 2019-04-15 09:36 | PDOC.HOSPP ---
- Subjective Encounter Date: 04/15/19 Encounter Time: 09:36 Subjective: Patient reports having a fever overnight. She has been moved to a bigger room and she is happy with that. She reports chills overnight. Reports that she feels tired but no CP. No dizziness. Denies nausea or vomiting. No swelling in the legs anymore. - Objective Vital Signs & Weight: Vital Signs (12 hours) Temp Pulse Resp BP Pulse Ox 04/15/19 08:45 100.1 F H 77 20 144/64 H 94 L 04/15/19 07:49 78 16 04/15/19 03:32 99.3 F 78 20 122/58 L 94 L 04/15/19 02:49 93 L 04/15/19 00:45 99 F 86 20 136/64 04/15/19 00:19 93 L 04/14/19 23:30 101 F H 93 24 H 191/96 H 94 L Weight Admit Weight 153 lb Weight 153 lb I&O: 04/14/19 04/15/19 04/16/19 06:59 06:59 06:59 Intake Total 780 2140 Output Total 500 500 Balance 280 1640 Result Diagrams: 04/15/19 04:41 04/15/19 04:41 Hospitalist ROS - Medication Medications: Active Medications Generic Name Dose Route Start Last Admin Trade Name Freq PRN Reason Stop Dose Admin Hydrocodone Bitart/Acetaminophen 2 tab 04/14/19 08:23 04/15/19 08:48 [place] 10/325 PO 2 tab Q6H PRN Administration Severe Pain (7-10) Azithromycin 500 mg 04/14/19 09:00 04/15/19 08:47 Zithromax PO 500 mg DAILY GUILLE Administration Escitalopram Oxalate 20 mg 04/14/19 09:00 04/15/19 08:47 Lexapro PO 20 mg DAILY GUILLE Administration Folic Acid 1 mg 04/14/19 09:00 04/15/19 08:47 Folvite PO 1 mg DAILY GUILLE Administration Heparin Sodium (Porcine) 5,000 units 04/13/19 18:20 04/15/19 08:47 Heparin SC 5,000 units TID GUILLE Administration Hydroxyzine HCl 50 mg 04/14/19 08:19 04/15/19 08:49 Atarax PO 50 mg TIDPRN PRN Administration Anxiety Ceftriaxone Sodium 1 gm/ 100 mls @ 200 mls/hr 04/14/19 09:00 04/15/19 08:49 Sodium Chloride IVPB 100 mls Q24HR@0900 GUILLE Administration Ipratropium [place] 2.5 ml 04/13/19 18:20 04/15/19 07:49 Atrovent NEB 2.5 ml [id number] GUILLE Administration Metoprolol Succinate 50 mg 04/14/19 09:00 04/15/19 08:48 Toprol Xl PO 50 mg DAILY GUILLE Administration Montelukast Sodium 10 mg 04/14/19 09:00 04/15/19 08:47 Singulair PO 10 mg DAILY GUILLE Administration Nicotine 14 mg 04/14/19 08:30 04/15/19 08:47 Nicoderm Patch TD 14 mg Q24HR GUILLE Administration Pantoprazole Sodium 40 mg 04/14/19 09:00 04/15/19 08:48 Protonix PO 40 mg DAILY GUILLE Administration Sodium Chloride 10 ml 04/13/19 16:11 04/15/19 08:49 Flush - Normal Saline IVF 10 ml PRN PRN Administration Saline Flush - Exam General Appearance: awake alert, ill appearing Eye: PERRL, anicteric sclera ENT: normocephalic atraumatic, no oropharyngeal lesions, moist mucosa Neck: supple, symmetric, no thyromegaly, no lymphadenopathy Heart: RRR, no murmur, no gallops, normal peripheral pulses Heart - other findings: no pedal edema Respiratory: no tachypnea, wheezes (end expiratory bilaterally intermittent) Respiratory - other findings: not using accessory muscles of respiration Gastrointestinal: soft, non-tender, non-distended, normal bowel sounds, no palpable masses Hosp A/P (1) Bacteremia due to Streptococcus pneumoniae Code(s): R78.81 - BACTEREMIA Status: Acute (2) COPD (chronic obstructive pulmonary disease) Status: Chronic Qualifiers: COPD type: COPD with acute exacerbation Qualified Code(s): J44.1 - Chronic obstructive pulmonary disease with (acute) exacerbation (3) CKD (chronic kidney disease) stage 3, GFR 30-59 ml/min Status: Chronic (4) Dyslipidemia Code(s): E78.5 - HYPERLIPIDEMIA, UNSPECIFIED Status: Chronic (5) Hypertension Code(s): I10 - ESSENTIAL (PRIMARY) HYPERTENSION Status: Chronic Qualifiers: Hypertension type: essential hypertension Qualified Code(s): I10 - Essential (primary) hypertension (6) GERD (gastroesophageal reflux disease) Code(s): K21.9 - GASTRO-ESOPHAGEAL REFLUX DISEASE WITHOUT ESOPHAGITIS Status: Chronic Qualifiers: Esophagitis presence: esophagitis presence not specified Qualified Code(s) : K21.9 - Gastro-esophageal reflux disease without esophagitis - Plan continue antibiotics, PT/OT, out of bed/ambulate, dc tele Hospitalist A/P (1) Streptococcus pneumoniae bacteremia Continue IV ceftriaxone High risk due to need for IV abx and risk of worsening resp. failure Repeat blood cultures negative so far (2) COPD (chronic obstructive pulmonary disease) Status: Chronic Qualifiers: COPD type: COPD with acute exacerbation Qualified Code(s): J44.1 - Chronic obstructive pulmonary disease with (acute) exacerbation Assessment and Plan: Mild exacerbation Continue IV abx and nebs Improving (3) Acute respiratory failure with hypoxia Code(s): J96.01 - ACUTE RESPIRATORY FAILURE WITH HYPOXIA Status: Acute Assessment and Plan: Related to COPD exacerbation Keep sats 88-92% Wean as tolerated (4) CKD (chronic kidney disease) stage 3, GFR 30-59 ml/min Status: Chronic Assessment and Plan: SAMMIE on CKD. Improving Nephrology on board Continue diuresis Avoid nephrotoxic meds and hypotension Monitor urine output and renal function closely (5) Dyslipidemia Code(s): E78.5 - HYPERLIPIDEMIA, UNSPECIFIED Status: Chronic Assessment and Plan: Continue statin therapy (6) Hypertension Code(s): I10 - ESSENTIAL (PRIMARY) HYPERTENSION Status: Chronic Qualifiers: Hypertension type: essential hypertension Assessment and Plan: Stable BP Hold HTN meds as she is on IV diuretics (7) GERD (gastroesophageal reflux disease) Code(s): K21.9 - GASTRO-ESOPHAGEAL REFLUX DISEASE WITHOUT ESOPHAGITIS Status: Chronic Qualifiers: Esophagitis presence: esophagitis presence not specified Qualified Code(s) : K21.9 - Gastro-esophageal reflux disease without esophagitis Assessment and Plan: Stable
--- NOTE | 2019-04-15 13:47 | PRG ---
DATE OF SERVICE: 04/15/2019 SUBJECTIVE: Patient was seen and examined at bedside and overnight events noted. Patient denies any shortness of breath or chest pain or palpitation. No history of nausea or vomiting or diarrhea or fever or chills or cramps. OBJECTIVE: GENERAL: This is a well-built female, in no apparent distress. VITAL SIGNS: Temperature 100.1. Heart rate 77. Respiratory rate 20. Blood pressure 144/64. HEENT: Atraumatic, normocephalic. Oral mucosa is moist NECK: Supple. CARDIOVASCULAR: S1, S2 heard. Rate and rhythm regular. RESPIRATORY: Clear to auscultation. GASTROINTESTINAL: Abdomen is soft. MUSCULOSKELETAL: No tenderness. No edema. DERMATOLOGIC: No skin rash. NEUROLOGIC: Alert and awake and oriented X3. No focal neurologic deficits. Moving all the extremities. PSYCHIATRIC: Mood and affect normal. LABORATORY DATA: Potassium is 5.0, BUN is 53, creatinine is 2.07. ASSESSMENT AND PLAN: 1. Acute kidney injury. Creatinine is better. 2. Chronic kidney disease, stage 4. 3. Azotemia, most likely from infection. She has fever to infection. 4. Edema. 5. Hypertension, stable. 6. Anemia. 7. Mild hyperkalemia. Limit potassium intake. We will continue to monitor. Her creatinine is better, but elevated BUN. We will follow. Job ID: [id number]
[2019-04-16] MEDS: HYDROcodone/Acetaminophen 10/325 mg Tablet PO PRN ×3 (00:35→20:49)
[2019-04-16] MEDS: Ipratropium Bromide 2.5 ml Neb NEB SCH ×6 (03:18→23:08)
[2019-04-16 04:50] LABS: #Eosinphils 0.1 thou/uL (0.0-0.7); #Lymphocytes 2.3 thou/uL (1.20-3.40); #Monocytes 0.9 thou/uL (0.11-0.59); #Neutrophils 5.4 thou/uL (1.40-6.50); %Basophils 0.5 % (0.0-1.0); %Eosinophils 0.8 % (0.0-10.0); %Lymphocytes 26.2 % (21.0-51.0); %Monocytes 10.6 % (0.0-10.0); %Neutrophils 61.8 % (42.0-75.0); Mean Corpuscular HGB CONC 33.4 g/dL (32.0-36.0); Mean Corpuscular Hemoglobin 30.5 pg (27.0-31.0); Mean Corpuscular Volume 91.3 fL (78.0-98.0); Platelet Count 192 thou/uL (130-400); Red Blood Cell (RBC) Count 3.28 mill/uL (4.20-5.40); White Blood Cell (WBC) Count 8.8 thou/uL (4.8-10.8)
[2019-04-16 05:05] LABS: Anion Gap 15 mmol/L (10-20); BUN (Urea Nitrogen) 66 mg/dL (9.8-20.1); Calc. Creatinine Clearance 24 mL/min (70-130); Calcium 8.4 mg/dL (7.8-10.44); Carbon Dioxide 25 mmol/L (23-31); Chloride 97 mmol/L (98-107); Estimated GFR-MDRD 19; Glucose 131 mg/dL (80-115); Potassium 4.1 mmol/L (3.5-5.1); Sodium 133 mmol/L (136-145)
[2019-04-16] MEDS: Escitalopram Oxalate 20 mg Tablet PO SCH (08:24)
[2019-04-16] MEDS: Montelukast Sodium 10 mg Tablet PO SCH (08:24)
[2019-04-16] MEDS: Nicotine 14 MG PATCH TD SCH (08:24)
[2019-04-16] MEDS: Folic Acid 1 MG TAB PO SCH (08:24)
[2019-04-16] MEDS: Azithromycin 250 MG TAB PO SCH (08:24)
[2019-04-16] MEDS: cefTRIAXone\\ROCEPHIN 1 GM in Sodium Chloride 0.9% 100 ML IVPB SCH (08:25)
[2019-04-16] MEDS: Heparin 5,000 UNITS/ML VIAL SC SCH ×2 (08:35→20:37)
--- NOTE | 2019-04-16 13:34 | PDOC.HOSPP ---
- Subjective Encounter Date: 04/16/19 Encounter Time: 13:15 Subjective: Patient reports that her breathing is better. No CP, lightheadedness. No N/V/D/ C. No fever, chills. - Objective Vital Signs & Weight: Vital Signs (12 hours) Temp Pulse Resp BP Pulse Ox 04/16/19 12:00 98.7 F 82 17 105/55 L 98 04/16/19 10:28 71 16 04/16/19 08:21 98.3 F 71 20 112/53 L 93 L 04/16/19 07:09 64 16 04/16/19 05:33 64 18 100/70 95 04/16/19 03:59 98.1 F 65 14 92/52 L 89 L 04/16/19 03:20 94 L 04/16/19 03:18 92 L Weight Admit Weight 153 lb Weight 153 lb 1.6 oz I&O: 04/15/19 04/16/19 04/17/19 06:59 06:59 06:59 Intake Total 2140 1800 Output Total 500 1900 Balance 1640 -100 Result Diagrams: 04/16/19 04:32 04/16/19 04:32 Hospitalist ROS - Medication Medications: Active Medications Generic Name Dose Route Start Last Admin Trade Name Freq PRN Reason Stop Dose Admin Hydrocodone Bitart/Acetaminophen 2 tab 04/14/19 08:23 04/16/19 00:35 [place] 10/325 PO 2 tab Q6H PRN Administration Severe Pain (7-10) Azithromycin 500 mg 04/14/19 09:00 04/16/19 08:24 Zithromax PO 500 mg DAILY GUILLE Administration Escitalopram Oxalate 20 mg 04/14/19 09:00 04/16/19 08:24 Lexapro PO 20 mg DAILY GUILLE Administration Folic Acid 1 mg 04/14/19 09:00 04/16/19 08:24 Folvite PO 1 mg DAILY GUILLE Administration Hydroxyzine HCl 50 mg 04/14/19 08:19 04/15/19 23:06 Atarax PO 50 mg TIDPRN PRN Administration Anxiety Ceftriaxone Sodium 1 gm/ 100 mls @ 200 mls/hr 04/14/19 09:00 04/16/19 08:25 Sodium Chloride IVPB 100 mls Q24HR@0900 GUILLE Administration Ipratropium [place] 2.5 ml 04/13/19 18:20 04/16/19 10:28 Atrovent NEB 2.5 ml [id number] GUILLE Administration Metoprolol Succinate 50 mg 04/14/19 09:00 04/16/19 08:24 Toprol Xl PO 50 mg DAILY GUILLE Administration Montelukast Sodium 10 mg 04/14/19 09:00 04/16/19 08:24 Singulair PO 10 mg DAILY GUILLE Administration Nicotine 14 mg 04/14/19 08:30 04/16/19 08:24 Nicoderm Patch TD 14 mg Q24HR GUILLE Administration Pantoprazole Sodium 40 mg 04/14/19 09:00 04/16/19 08:24 Protonix PO 40 mg DAILY GUILLE Administration Sodium Chloride 10 ml 04/13/19 16:11 04/15/19 21:40 Flush - Normal Saline IVF 10 ml PRN PRN Administration Saline Flush - Exam General Appearance: awake alert, ill appearing Eye: PERRL, anicteric sclera ENT: normocephalic atraumatic, no oropharyngeal lesions Neck: supple, symmetric, no thyromegaly, no lymphadenopathy Heart: RRR, no murmur, no gallops, normal peripheral pulses Respiratory: CTAB, no wheezes, no rales, no ronchi, normal chest expansion Gastrointestinal: soft, non-tender, non-distended, normal bowel sounds Hosp A/P (1) Bacteremia due to Streptococcus pneumoniae Code(s): R78.81 - BACTEREMIA Status: Acute (2) COPD (chronic obstructive pulmonary disease) Status: Chronic Qualifiers: COPD type: COPD with acute exacerbation Qualified Code(s): J44.1 - Chronic obstructive pulmonary disease with (acute) exacerbation (3) CKD (chronic kidney disease) stage 3, GFR 30-59 ml/min Status: Chronic (4) Dyslipidemia Code(s): E78.5 - HYPERLIPIDEMIA, UNSPECIFIED Status: Chronic (5) Hypertension Code(s): I10 - ESSENTIAL (PRIMARY) HYPERTENSION Status: Chronic Qualifiers: Hypertension type: essential hypertension Qualified Code(s): I10 - Essential (primary) hypertension (6) GERD (gastroesophageal reflux disease) Code(s): K21.9 - GASTRO-ESOPHAGEAL REFLUX DISEASE WITHOUT ESOPHAGITIS Status: Chronic Qualifiers: Esophagitis presence: esophagitis presence not specified Qualified Code(s) : K21.9 - Gastro-esophageal reflux disease without esophagitis - Plan continue antibiotics, PT/OT, out of bed/ambulate Hospitalist A/P (1) Streptococcus pneumoniae bacteremia Continue IV ceftriaxone for now High risk due to need for IV abx and risk of worsening resp. failure Repeat blood cultures negative so far Eventual PO abx prior to DC to finish a 2 wk course with presumptive end date of 04/27/2019 (2) COPD (chronic obstructive pulmonary disease) Status: Chronic Qualifiers: COPD type: COPD with acute exacerbation Qualified Code(s): J44.1 - Chronic obstructive pulmonary disease with (acute) exacerbation Assessment and Plan: Mild exacerbation Continue abx and nebs No steroids due to her strep bacteremia Improving (3) Acute respiratory failure with hypoxia Code(s): J96.01 - ACUTE RESPIRATORY FAILURE WITH HYPOXIA Status: Acute Assessment and Plan: Related to COPD exacerbation Keep sats 88-92% Wean oxygen as tolerated (4) CKD (chronic kidney disease) stage 3, GFR 30-59 ml/min Status: Chronic Assessment and Plan: SAMMIE on CKD. Worse renal function today. Likely due to overdiuresis. Nephrology on board. Case DW Dr. Syed Avoid nephrotoxic meds and hypotension Monitor urine output and renal function closely (5) Dyslipidemia Code(s): E78.5 - HYPERLIPIDEMIA, UNSPECIFIED Status: Chronic Assessment and Plan: Continue statin therapy (6) Hypertension Code(s): I10 - ESSENTIAL (PRIMARY) HYPERTENSION Status: Chronic Qualifiers: Hypertension type: essential hypertension Assessment and Plan: Stable BP Hold HTN meds due to SAMMIE on CKD (7) GERD (gastroesophageal reflux disease) Code(s): K21.9 - GASTRO-ESOPHAGEAL REFLUX DISEASE WITHOUT ESOPHAGITIS Status: Chronic Qualifiers: Esophagitis presence: esophagitis presence not specified Qualified Code(s) : K21.9 - Gastro-esophageal reflux disease without esophagitis Assessment and Plan: Stable
--- NOTE | 2019-04-16 14:24 | PRG ---
DATE OF SERVICE: 04/16/2019 SUBJECTIVE: Patient was seen and examined at bedside and overnight events noted. Patient denies any shortness of breath or chest pain or palpitation. No history of nausea or vomiting or diarrhea or fever or chills or cramps. OBJECTIVE: GENERAL: This is a well-built female, in no apparent distress. VITAL SIGNS: Temperature 98.7. Heart rate 82. Respiratory rate 17. Blood pressure 105/55. HEENT: Atraumatic, normocephalic. Oral mucosa is moist NECK: Supple. CARDIOVASCULAR: S1, S2 heard. Rate and rhythm regular. RESPIRATORY: Clear to auscultation. GASTROINTESTINAL: Abdomen is soft. MUSCULOSKELETAL: No tenderness. No edema. DERMATOLOGIC: No skin rash. NEUROLOGIC: Alert and awake and oriented X3. No focal neurologic deficits. Moving all the extremities. PSYCHIATRIC: Mood and affect normal. LABORATORY DATA: Potassium 4.1, BUN is 66, creatinine is 2.5. ASSESSMENT AND PLAN: 1. Acute kidney injury. Creatinine is stable slightly. 2. Azotemia. 3. Edema. 4. Hypertension. 5. Anemia. 6. Mild hyperkalemia. 7. Creatinine with bump but her Lasix is on hold. We will monitor her renal function off diuretics for now. The patient is feeling better clinically. Job ID: [id number]
[2019-04-16] MEDS: hydrOXYzine 25 MG TAB PO PRN (20:49)
[2019-04-17] MEDS: Ipratropium Bromide 2.5 ml Neb NEB SCH ×6 (03:40→23:02)
[2019-04-17 04:42] LABS: #Basophils 0.1 thou/uL (0.0-0.2); #Eosinphils 0.3 thou/uL (0.0-0.7); #Lymphocytes 2.6 thou/uL (1.20-3.40); #Monocytes 1.1 thou/uL (0.11-0.59); %Basophils 0.7 % (0.0-1.0); %Eosinophils 3.7 % (0.0-10.0); %Lymphocytes 28.7 % (21.0-51.0); %Monocytes 12.1 % (0.0-10.0); %Neutrophils 54.7 % (42.0-75.0); Hemoglobin 9.6 g/dL (12.0-16.0); Mean Corpuscular Hemoglobin 30.1 pg (27.0-31.0); Platelet Count 203 thou/uL (130-400); RBC Distribution Width 11.8 % (11.5-14.5); White Blood Cell (WBC) Count 9.1 thou/uL (4.8-10.8)
[2019-04-17 05:12] LABS: ALT (SGPT) 7 U/L (8-55); AST (SGOT) 14 U/L (5-34); Albumin 2.9 g/dL (3.4-4.8); Alkaline Phosphatase 64 U/L (40-110); Anion Gap 12 mmol/L (10-20); BUN (Urea Nitrogen) 64 mg/dL (9.8-20.1); Bilirubin, Total Less than 0.2 mg/dL (0.2-1.2); Calc. Creatinine Clearance 24 mL/min (70-130); Calcium 8.9 mg/dL (7.8-10.44); Carbon Dioxide 30 mmol/L (23-31); Chloride 97 mmol/L (98-107); Estimated GFR-MDRD 19; Glucose 105 mg/dL (80-115); Potassium 4.7 mmol/L (3.5-5.1); Protein, Total 5.9 g/dL (6.0-8.3); Sodium 134 mmol/L (136-145)
[2019-04-17] MEDS: Heparin 5,000 UNITS/ML VIAL SC SCH ×2 (09:05→20:40)
[2019-04-17] MEDS: Montelukast Sodium 10 mg Tablet PO SCH (09:05)
[2019-04-17] MEDS: Azithromycin 250 MG TAB PO SCH (09:05)
[2019-04-17] MEDS: Folic Acid 1 MG TAB PO SCH (09:05)
[2019-04-17] MEDS: HYDROcodone/Acetaminophen 10/325 mg Tablet PO PRN ×2 (09:06→20:44)
[2019-04-17] MEDS: Escitalopram Oxalate 20 mg Tablet PO SCH (09:07)
[2019-04-17] MEDS: cefTRIAXone\\ROCEPHIN 1 GM in Sodium Chloride 0.9% 100 ML IVPB SCH (09:07)
[2019-04-17] MEDS: Nicotine 14 MG PATCH TD SCH (09:13)
--- NOTE | 2019-04-17 10:17 | PDOC.HOSPP ---
- Subjective Encounter Date: 04/17/19 Encounter Time: 17:00 Subjective: Patient feeling better, still fatigued. Requiring 3-4L NC O2. Doesn't use O2 at home but has been meaning to talk to Dr. Sanford about seeing if she can get some due to her progression of disease. - Objective Vital Signs & Weight: Vital Signs (12 hours) Temp Pulse Resp BP Pulse Ox 04/17/19 07:58 99.4 F 84 18 135/62 92 L 04/17/19 07:27 81 16 91 L 04/17/19 03:50 97.9 F 71 22 H 129/61 95 04/17/19 03:40 91 L 04/17/19 00:00 68 16 131/60 92 L 04/16/19 23:08 92 L Weight Admit Weight 153 lb Weight 154 lb 12.8 oz I&O: 04/16/19 04/17/19 04/18/19 06:59 06:59 06:59 Intake Total 1800 1410 Output Total 1900 1450 Balance -100 -40 Result Diagrams: 04/17/19 04:13 04/17/19 04:13 Hospitalist ROS - Review of Systems Constitutional: denies: fever, chills Respiratory: reports: cough, shortness of breath Cardiovascular: denies: chest pain, palpitations, orthopnea Gastrointestinal: denies: nausea, vomiting, abdominal pain - Medication Medications: Active Medications Generic Name Dose Route Start Last Admin Trade Name Freq PRN Reason Stop Dose Admin Hydrocodone Bitart/Acetaminophen 2 tab 04/14/19 08:23 04/17/19 09:06 [place] 10/325 PO 2 tab Q6H PRN Administration Severe Pain (7-10) Azithromycin 500 mg 04/14/19 09:00 04/17/19 09:05 Zithromax PO 500 mg DAILY GUILLE Administration Escitalopram Oxalate 20 mg 04/14/19 09:00 04/17/19 09:07 Lexapro PO 20 mg DAILY GUILLE Administration Folic Acid 1 mg 04/14/19 09:00 04/17/19 09:05 Folvite PO 1 mg DAILY GUILLE Administration Heparin Sodium (Porcine) 5,000 units 04/16/19 21:00 04/17/19 09:05 Heparin SC 5,000 units BID GUILLE Administration Hydroxyzine HCl 50 mg 04/14/19 08:19 04/16/19 20:49 Atarax PO 50 mg TIDPRN PRN Administration Anxiety Ceftriaxone Sodium 1 gm/ 100 mls @ 200 mls/hr 04/14/19 09:00 04/17/19 09:07 Sodium Chloride IVPB 100 mls Q24HR@0900 GUILLE Administration Ipratropium [place] 2.5 ml 04/13/19 18:20 04/17/19 07:27 Atrovent NEB 2.5 ml [id number] GUILLE Administration Metoprolol Succinate 50 mg 04/14/19 09:00 04/17/19 09:05 Toprol Xl PO 50 mg DAILY GUILLE Administration Montelukast Sodium 10 mg 04/14/19 09:00 04/17/19 09:05 Singulair PO 10 mg DAILY GUILLE Administration Nicotine 14 mg 04/14/19 08:30 04/17/19 09:13 Nicoderm Patch TD 14 mg Q24HR GUILLE Administration Pantoprazole Sodium 40 mg 04/14/19 09:00 04/17/19 09:05 Protonix PO 40 mg DAILY GUILLE Administration Sodium Chloride 10 ml 04/13/19 16:11 04/15/19 21:40 Flush - Normal Saline IVF 10 ml PRN PRN Administration Saline Flush - Exam General Appearance: NAD, awake alert Eye: anicteric sclera ENT: moist mucosa Heart: RRR, no murmur, no gallops, no rubs Respiratory: no rales, no ronchi, no tachypnea Respiratory - other findings: bilateral expiratory wheezes in mid lungs, no increased WOB Gastrointestinal: soft, non-tender, non-distended Psychiatric: normal affect, normal behavior, A&O x 3 Hosp A/P - Plan continue antibiotics (1) Bacteremia due to alpha hemolytic streptococcus - Not Strep pneumoniae on final report, 1/2 cultures positive, not sure if contaminent but will complete 10 days of antibiotics - Spiked fever one day but no tachycardia, no further leukocytosis, not meeting sepsis criteria (2) COPD (chronic obstructive pulmonary disease) with acute exacerbation - steroids, nebs, abx, due to persistence of hypoxia will get pulmonology involved (3) CKD (chronic kidney disease) stage 3, GFR 30-59 ml/min - stabilized off LasDr. Yahaira miranda following (4) Dyslipidemia (5) Hypertension - controlled (6) GERD (gastroesophageal reflux disease)
--- NOTE | 2019-04-17 12:05 | PRG ---
DATE OF SERVICE: 04/17/2019 SUBJECTIVE: The patient was seen and examined at bedside and overnight events noted. The patient denies any shortness of breath or chest pain or palpitation. No history of nausea or vomiting or diarrhea or fever or chills or cramps. OBJECTIVE: GENERAL: This is a well-built female, in no apparent distress. VITAL SIGNS: Temperature 98.4. Heart rate 84. Respiratory rate 18. Blood pressure 135/62. HEENT: Atraumatic, normocephalic. Oral mucosa is moist NECK: Supple. CARDIOVASCULAR: S1, S2 heard. Rate and rhythm regular. RESPIRATORY: Clear to auscultation. GASTROINTESTINAL: Abdomen is soft. MUSCULOSKELETAL: No tenderness. No edema. DERMATOLOGIC: No skin rash. NEUROLOGIC: Alert and awake and oriented X3. No focal neurologic deficits. Moving all the extremities. PSYCHIATRIC: Mood and affect normal. LABORATORY DATA: Potassium 4.7, BUN is 64, and creatinine is 2.5. ASSESSMENT AND PLAN: 1. Acute kidney injury on chronic kidney stage 4, stable. 2. Edema. 3. Hypertension. 4. Hyponatremia. 5. History of hypertension. 6. Hyperkalemia, better. Labs are stable. Job ID: [id number]
--- NOTE | 2019-04-17 12:46 | PQF ---
LESTERKELLIE BEE RYAN [id number] CLINICAL DOCUMENTATION IMPROVEMENT CLARIFICATION FORM: ICD-10 Updated PLEASE DO AN ADDENDUM TO THE PROGRESS NOTE WITH ANY DOCUMENTATION UPDATES OR ADDITIONS AND CARRY THROUGH TO DC SUMMARY. THANK YOU. DATE: 04/17/2019 ATTN:DR. Akhil GOODMAN Please exercise your independent, professional judgment in responding to the clarification form. Clinical indicators are provided on the bottom of this form for your review. Please check appropriate box(s): CONGESTIVE HEART FAILURE: A. ACUITY [ ] Acute [ ] Acute on Chronic [ ] Chronic B. TYPE [ ] Systolic / HFrEF [ ] Diastolic / HFpEF [ ] Combined Systolic / Diastolic [ ] Hypertensive Heart and Kidney disease [ ] Hypertensive Heart Disease [ ] Hypertensive Kidney Disease [ ] Other diagnosis [ X ] Unable to determine In addition, please specify: Present on Admission (POA): [ ] Yes [ ] No [ ] Unable to determine For continuity of documentation, please document condition throughout progress notes and discharge summary. Thank You. 04/13 BNP 1148.3 04/13 ED PHYSICIAN DX: COPD EXACERBATION, CHF EXACERBATION, LEFT LOBE PNA 04/13 H&P ( [facility]) SHE REPORTS SOB AT REST AND ORTHOPNEA. DENIES PNA. WORSENED WITH ACTIVITY AND RELIEVED WITH REST, NEBS AND DIURETICS. A/P: 1). SOB, COPD VS CHF EXACERBATION 04/14-04/16 PN ([facility]) A/P : 2). COPD EXACERBATION CXR IMPRESSION : PATCHY BILATERAL ALVEOLAR NODULAR PARENCHYMAL CHANGES , WORSE ON THE LEFT LUNG WELL SOME INCREASED INTERSTITIAL MARKINGS BILATERALLY, SHOWING DEFINITE WORSENING WHEN COMPARED TO 03/06/19. NO SIGNIFICANT PLEURAL EFFUSION. 04/17 RISK: COPD EXACERBATION, CHRONIC KIDNEY DISEASE ( H&P/[facility]) 04/13 TREATMENTS: LASIX INJECTION IVP 40MG ( 04/13) CXR (04/13) SUPPLEMENTAL OXYGEN ( 04/13-PRESENT ) THANK YOU! ABIEL (This form is maintained as a part of the permanent medical record) 2014 [employer]. All Rights Reserved DILAN [email or web address] [phone] MTDD
[2019-04-17] MEDS: hydrOXYzine 25 MG TAB PO PRN (20:40)
[2019-04-18] MEDS: Ipratropium Bromide 2.5 ml Neb NEB SCH ×6 (02:29→23:47)
[2019-04-18] MEDS: Azithromycin 250 MG TAB PO SCH (08:53)
[2019-04-18] MEDS: Escitalopram Oxalate 20 mg Tablet PO SCH (08:53)
[2019-04-18] MEDS: cefTRIAXone\\ROCEPHIN 1 GM in Sodium Chloride 0.9% 100 ML IVPB SCH (08:54)
[2019-04-18] MEDS: Heparin 5,000 UNITS/ML VIAL SC SCH ×2 (08:54→20:35)
[2019-04-18] MEDS: Nicotine 14 MG PATCH TD SCH (08:54)
[2019-04-18] MEDS: Montelukast Sodium 10 mg Tablet PO SCH (08:54)
[2019-04-18] MEDS: Folic Acid 1 MG TAB PO SCH (08:54)
[2019-04-18] MEDS: HYDROcodone/Acetaminophen 10/325 mg Tablet PO PRN (09:12)
[2019-04-18] MEDS ORDERED: Benzonatate 100 MG CAP PO PRN (09:55)
[2019-04-18] MEDS ORDERED: guaiFENesin 200 MG TAB PO PRN (09:55)
--- NOTE | 2019-04-18 10:05 | PDOC.HOSPP ---
- Subjective Encounter Date: 04/18/19 Encounter Time: 10:03 Subjective: Patient reports she is feeling generally unwell with increased cough productive for white sputum. States she feels cold. No documented fevers. Feels worn out. Reports having issues with her swallowing ability lately. She will cough/choke on her food but denies any difficulty swallowing. States it is due to being hungry. Denies any hemoptysis. No shortness of breath or chest pain. No n/v. no abdominal pain. - Objective Vital Signs & Weight: Vital Signs (12 hours) Temp Pulse Resp BP Pulse Ox 04/18/19 07:42 98.1 F 74 22 H 116/68 91 L 04/18/19 06:36 86 16 95 04/18/19 04:00 98.3 F 67 20 108/66 100 04/18/19 02:29 71 16 96 04/17/19 23:02 85 20 95 Weight Admit Weight 153 lb Weight 152 lb I&O: 04/17/19 04/18/19 04/19/19 06:59 06:59 06:59 Intake Total 1410 1450 Output Total 1450 200 Balance -40 1250 Result Diagrams: 04/17/19 04:13 04/17/19 04:13 Hospitalist ROS - Review of Systems Constitutional: reports: chills, weakness, malaise. denies: fever, sweats, other Eyes: denies: pain, vision change, conjunctivae inflammation, eyelid inflammation, redness, other ENT: denies: ear pain, ear discharge, nose pain, nose discharge, nose congestion , mouth pain, mouth swelling, throat pain, throat swelling, other Respiratory: reports: cough, sputum (white). denies: dry, shortness of breath, hemoptysis, SOB with excertion, pleuritic pain, wheezing, other Cardiovascular: denies: chest pain, palpitations, orthopnea, paroxysmal noc. dyspnea, edema, light headedness, other Gastrointestinal: denies: nausea, vomiting, abdominal pain, diarrhea, constipation, melena, hematochezia, other Genitourinary: denies: dysuria, frequency, incontinence, hematuria, retention, other Musculoskeletal: denies: neck pain, shoulder pain, arm pain, back pain, hand pain, leg pain, foot pain, other Skin: denies: rash, lesions, ed, bruising, other - Medication Medications: Active Medications Generic Name Dose Route Start Last Admin Trade Name Freq PRN Reason Stop Dose Admin Hydrocodone Bitart/Acetaminophen 2 tab 04/14/19 08:23 04/17/19 20:44 [place] 10/325 PO 2 tab Q6H PRN Administration Severe Pain (7-10) Azithromycin 500 mg 04/14/19 09:00 04/17/19 09:05 Zithromax PO 500 mg DAILY GUILLE Administration Escitalopram Oxalate 20 mg 04/14/19 09:00 04/17/19 09:07 Lexapro PO 20 mg DAILY GUILLE Administration Folic Acid 1 mg 04/14/19 09:00 04/17/19 09:05 Folvite PO 1 mg DAILY GUILLE Administration Heparin Sodium (Porcine) 5,000 units 04/16/19 21:00 04/17/19 20:40 Heparin SC 5,000 units BID GUILLE Administration Hydroxyzine HCl 50 mg 04/14/19 08:19 04/17/19 20:40 Atarax PO 50 mg TIDPRN PRN Administration Anxiety Ceftriaxone Sodium 1 gm/ 100 mls @ 200 mls/hr 04/14/19 09:00 04/17/19 09:07 Sodium Chloride IVPB 100 mls Q24HR@0900 GUILLE Administration Ipratropium [place] 2.5 ml 04/13/19 18:20 04/18/19 06:36 Atrovent NEB 2.5 ml [id number] GUILLE Administration Metoprolol Succinate 50 mg 04/14/19 09:00 04/17/19 09:05 Toprol Xl PO 50 mg DAILY GUILLE Administration Montelukast Sodium 10 mg 04/14/19 09:00 04/17/19 09:05 Singulair PO 10 mg DAILY GUILLE Administration Nicotine 14 mg 04/14/19 08:30 04/17/19 09:13 Nicoderm Patch TD 14 mg Q24HR GUILLE Administration Pantoprazole Sodium 40 mg 04/14/19 09:00 04/17/19 09:05 Protonix PO 40 mg DAILY GUILLE Administration Sodium Chloride 10 ml 04/13/19 16:11 04/15/19 21:40 Flush - Normal Saline IVF 10 ml PRN PRN Administration Saline Flush - Exam General Appearance: ill appearing (appears generally unwell) Eye: PERRL ENT: normocephalic atraumatic Neck: supple, symmetric Heart: RRR, no murmur, no gallops, normal peripheral pulses Respiratory: CTAB, normal chest expansion, no tachypnea Gastrointestinal: soft, non-tender, non-distended, normal bowel sounds, no palpable masses Extremities: no edema Skin: normal turgor, no lesions, no rashes Neurological: no weakness Musculoskeletal: normal tone, normal strength Psychiatric: normal behavior, A&O x 3 Hosp A/P (1) COPD exacerbation Code(s): J44.1 - CHRONIC OBSTRUCTIVE PULMONARY DISEASE W (ACUTE) EXACERBATION Status: Acute Plan: Continue steroids and nebs. Awaiting pulmonary review. Given increasing cough, repeat CXR. Tessalon perles and Guaifenesin. Speech eval to assess for aspiration. (2) General weakness Code(s): R53.1 - WEAKNESS Status: Acute Plan: PT/OT. Check respiratory viral panel. (3) Bacteremia due to Streptococcus pneumoniae Code(s): R78.81 - BACTEREMIA Status: Acute Plan: As above, repeat CXR, continue abx and await pulmonary review. Repeat labs including lactic acid. (4) GERD (gastroesophageal reflux disease) Code(s): K21.9 - GASTRO-ESOPHAGEAL REFLUX DISEASE WITHOUT ESOPHAGITIS Status: Chronic Qualifiers: Esophagitis presence: esophagitis presence not specified Qualified Code(s) : K21.9 - Gastro-esophageal reflux disease without esophagitis Plan: Continue PPI (5) CKD (chronic kidney disease) stage 3, GFR 30-59 ml/min Status: Chronic Plan: Stable. Repeat renal function. Dr. Yahaira cullen. (6) Hypertension Code(s): I10 - ESSENTIAL (PRIMARY) HYPERTENSION Status: Chronic Qualifiers: Hypertension type: essential hypertension Qualified Code(s): I10 - Essential (primary) hypertension Plan: Continue to monitor BP. Controlled at present. (7) Dyslipidemia Code(s): E78.5 - HYPERLIPIDEMIA, UNSPECIFIED Status: Chronic - Plan continue antibiotics, PT/OT, speech therapy, incentive spirometry
--- NOTE | 2019-04-18 10:19 | RAD ---
XR Chest 1 View Portable HISTORY: Cough and congestion COMPARISON: 04/13/2019 FINDINGS: There is been interval worsening of the nodular parenchymal changes since the previous exam . The heart size is stable. The aorta structures. No pneumothoraces or pleural effusions are seen. There are degenerative changes in the spine.
[2019-04-18 10:42] LABS: #Eosinphils 0.3 thou/uL (0.0-0.7); #Lymphocytes 2.3 thou/uL (1.20-3.40); #Monocytes 1.4 thou/uL (0.11-0.59); #Neutrophils 6.9 thou/uL (1.40-6.50); %Basophils 0.3 % (0.0-1.0); %Eosinophils 2.4 % (0.0-10.0); %Lymphocytes 21.1 % (21.0-51.0); %Monocytes 12.8 % (0.0-10.0); %Neutrophils 63.5 % (42.0-75.0); Hemoglobin 9.4 g/dL (12.0-16.0); Mean Corpuscular HGB CONC 33.1 g/dL (32.0-36.0); Mean Corpuscular Hemoglobin 30.7 pg (27.0-31.0); Mean Corpuscular Volume 92.6 fL (78.0-98.0); Mean Platelet Volume 7.9 fL (7.4-10.4); Platelet Count 225 thou/uL (130-400); RBC Distribution Width 11.7 % (11.5-14.5); Red Blood Cell (RBC) Count 3.08 mill/uL (4.20-5.40); White Blood Cell (WBC) Count 10.9 thou/uL (4.8-10.8)
[2019-04-18 10:46] LABS: Lactic Acid 0.6 mmol/L (0.5-2.2)
[2019-04-18 10:49] LABS: Anion Gap 10 mmol/L (10-20); BUN (Urea Nitrogen) 48 mg/dL (9.8-20.1); Calc. Creatinine Clearance 32 mL/min (70-130); Calcium 8.9 mg/dL (7.8-10.44); Carbon Dioxide 29 mmol/L (23-31); Chloride 98 mmol/L (98-107); Estimated GFR-MDRD 27; Glucose 110 mg/dL (80-115); Potassium 4.3 mmol/L (3.5-5.1); Sodium 133 mmol/L (136-145)
--- NOTE | 2019-04-18 11:51 | CON ---
DATE OF CONSULTATION: 04/18/2019 CONSULTING PHYSICIAN: Dr. Blackwell. REASON FOR CONSULTATION: COPD exacerbation. HISTORY OF PRESENT ILLNESS: Ms. Logan is a 64-year-old female who presented to the hospital on 04/13 with shortness of breath. She has been wheezing and coughing up purulent sputum. It is not clear to me what has changed over the last 5 days. PAST MEDICAL HISTORY: 1. Severe chronic obstructive pulmonary disease. 2. Tobacco abuse. 3. Hypertension. 4. Chronic kidney disease. 5. Diabetes mellitus. 6. Back surgery. 7. Hysterectomy. 8. Bladder suspension. 9. Laparotomy for small-bowel obstruction. ALLERGIES: SULFA DRUGS, TRIMETHOPRIM, CLINDAMYCIN, METFORMIN, NAPROXEN, AND TRAMADOL. CURRENT INPATIENT MEDICATIONS: 1. Ceftriaxone. 2. Azithromycin. 3. Guaifenesin. 4. Hydroxyzine. 5. Metoprolol. 6. Montelukast. 7. Nicotine. 8. Protonix. OUTPATIENT MEDICATIONS: These were reviewed, see chart. Of note, the patient was taking fairly substantial dose of prednisone prior to admission. Does not appear that she is on any steroids at the current time. REVIEW OF SYSTEMS: Twelve-point review of systems remarkable for shortness of breath, cough, congestion, otherwise, negative. PHYSICAL EXAMINATION: VITAL SIGNS: Temperature 98.1, pulse 78, respirations 16, O2 saturation 95% on 3 L, and blood pressure 116/68. HEENT: Unremarkable. NECK: No adenopathy or JVD. LUNGS: She has coarse rhonchi bilaterally. CARDIOVASCULAR: S1, S2. Regular. ABDOMEN: Soft. EXTREMITIES: Trace edema. LABORATORY DATA: White blood cell count 10.9, hematocrit 28.5, and platelet count 225. Sodium 133, potassium 4.3, chloride 98, CO2 of 29, BUN 48, creatinine 1.8, glucose 110. Micro culture, she had one culture grew out alpha strep from the arm at time of admission. ASSESSMENT: The patient presents with a chronic obstructive pulmonary disease exacerbation, which has not improved very quickly. She appears to have a component of pneumonia, but this looks slightly improved compared to previous films. RECOMMENDATION: Given her continued problems, I would go ahead and switch her over to IV steroids and give her a broader spectrum of antibiotic than what she is currently taking. We will follow. Job ID: [id number]
--- NOTE | 2019-04-18 13:03 | PRG ---
DATE OF SERVICE: 04/18/2019 SUBJECTIVE: Patient was seen and examined at bedside and overnight events noted. Patient denies any shortness of breath or chest pain or palpitation. No history of nausea or vomiting or diarrhea or fever or chills or cramps. OBJECTIVE: GENERAL: This is a well-built female, in no acute distress. VITAL SIGNS: Temperature 98.1. Heart rate 74. Respiratory rate 20. Blood pressure 116/60. HEENT: Atraumatic, normocephalic. Oral mucosa is moist NECK: Supple. CARDIOVASCULAR: S1, S2 heard. Rate and rhythm regular. RESPIRATORY: Clear to auscultation. GASTROINTESTINAL: Abdomen is soft. MUSCULOSKELETAL: No tenderness. No edema. DERMATOLOGIC: No skin rash. NEUROLOGIC: Alert and awake and oriented X3. No focal neurologic deficits. Moving all the extremities. PSYCHIATRIC: Mood and affect normal. LABORATORY DATA: Potassium 4.3, BUN is 40, and creatinine is 1.89. ASSESSMENT AND PLAN: 1. Acute kidney injury on chronic kidney disease, stage 4, much better creatinine. 2. Edema, controlled. 3. Hypotension, stable. 4. Hyponatremia, limit fluid. 5. History of hypertension. Labs are much better. We will follow. Avoid nephrotoxins. Job ID: [id number]
[2019-04-18] MEDS: methylPREDNISolone Sod Succ 40 MG VIAL IVP SCH ×2 (14:55→17:48)
[2019-04-18] MEDS: Piperacillin/Tazobactam 2.25 GM in Sodium Chloride 0.9% 100 ML IVPB SCH ×2 (14:55→23:00)
[2019-04-19] MEDS: methylPREDNISolone Sod Succ 40 MG VIAL IVP SCH ×4 (00:59→18:00)
[2019-04-19] MEDS: HYDROcodone/Acetaminophen 10/325 mg Tablet PO PRN ×3 (01:06→18:00)
[2019-04-19] MEDS: Ipratropium Bromide 2.5 ml Neb NEB SCH ×5 (02:13→19:28)
[2019-04-19] MEDS: Piperacillin/Tazobactam 2.25 GM in Sodium Chloride 0.9% 100 ML IVPB SCH ×4 (06:12→22:52)
[2019-04-19] MEDS: Montelukast Sodium 10 mg Tablet PO SCH (09:31)
[2019-04-19] MEDS: Azithromycin 250 MG TAB PO SCH (09:31)
[2019-04-19] MEDS: Folic Acid 1 MG TAB PO SCH (09:31)
[2019-04-19] MEDS: Heparin 5,000 UNITS/ML VIAL SC SCH ×2 (09:31→21:54)
[2019-04-19] MEDS: Nicotine 14 MG PATCH TD SCH (09:31)
[2019-04-19] MEDS: Escitalopram Oxalate 20 mg Tablet PO SCH (09:31)
--- NOTE | 2019-04-19 13:37 | PRG ---
DATE OF SERVICE: 04/19/2019 SUBJECTIVE: Patient was seen and examined at bedside and overnight events noted. Patient denies any shortness of breath or chest pain or palpitation. No history of nausea or vomiting or diarrhea or fever or chills or cramps. OBJECTIVE: GENERAL: This is an elderly female, in no apparent distress. VITAL SIGNS: Temperature 97.4. Heart rate 80. Respiratory rate 20. Blood pressure 125/57. HEENT: Atraumatic, normocephalic. Oral mucosa is moist NECK: Supple. CARDIOVASCULAR: S1, S2 heard. Rate and rhythm regular. RESPIRATORY: Clear to auscultation. GASTROINTESTINAL: Abdomen is soft. MUSCULOSKELETAL: No tenderness. No edema. DERMATOLOGIC: No skin rash. NEUROLOGIC: Alert and awake and oriented X3. No focal neurologic deficits. Moving all the extremities. PSYCHIATRIC: Mood and affect normal. LABORATORY DATA: No labs done today. ASSESSMENT AND PLAN: 1. Acute kidney injury on chronic kidney stage 4, stable. 2. Edema, controlled. 3. History of hypertension. 4. Hyponatremia, stable. 5. Anemia. We will monitor labs. Avoid nephrotoxins. Job ID: [id number]
[2019-04-19] MEDS: hydrOXYzine 25 MG TAB PO PRN (14:06)
--- NOTE | 2019-04-19 15:18 | PDOC.HOSPP ---
- Subjective Subjective: Follow-up evaluation on COPD with acute exacerbation currently being followed by pulmonology. Patient seen and examined, breathing comfortably on low-flow nasal cannula. Patient with less short of breath and states that she is feels like she is getting better. Patient tells me that she normally falls up with Dr. Sanford in the outpatient clinic. Patient has been under a lot more stress since she is going through a divorce. Overall patient improving on maximal medical therapy at this point. Time was given for questions, all questions answered in detail. Patient happy with plan of care. - Objective Vital Signs & Weight: Vital Signs (12 hours) Temp Pulse Resp BP BP Pulse Ox 04/19/19 14:29 66 16 04/19/19 12:00 94 L 04/19/19 11:15 73 16 04/19/19 08:00 92 L 04/19/19 07:24 97.4 F L 80 20 125/57 L 91 L 04/19/19 06:37 99 04/19/19 06:34 61 12 04/19/19 04:00 97.8 F 75 18 135/59 L Weight Admit Weight 153 lb Weight 2.464 oz I&O: 04/18/19 04/19/19 04/20/19 06:59 06:59 06:59 Intake Total 1450 875 Output Total 200 Balance 1250 875 Result Diagrams: 04/18/19 10:11 04/18/19 10:11 Radiology Reviewed by me: Yes Hospitalist ROS - Review of Systems All other systems reviewed; all pertinent +/- noted in HPI/Subj - Medication Medications: Active Medications Generic Name Dose Route Start Last Admin Trade Name Freq PRN Reason Stop Dose Admin Hydrocodone Bitart/Acetaminophen 2 tab 04/14/19 08:23 04/19/19 09:42 [place] 10/325 PO 2 tab Q6H PRN Administration Severe Pain (7-10) Albuterol/Ipratropium 3 ml 04/18/19 14:30 04/19/19 14:29 Duoneb NEB 3 ml [id number] GUILLE Administration Azithromycin 500 mg 04/14/19 09:00 04/19/19 09:31 Zithromax PO 500 mg DAILY GUILLE Administration Escitalopram Oxalate 20 mg 04/14/19 09:00 04/19/19 09:31 Lexapro PO 20 mg DAILY GUILLE Administration Folic Acid 1 mg 04/14/19 09:00 04/19/19 09:31 Folvite PO 1 mg DAILY GUILLE Administration Heparin Sodium (Porcine) 5,000 units 04/16/19 21:00 04/19/19 09:31 Heparin SC 5,000 units BID GUILLE Administration Hydroxyzine HCl 50 mg 04/14/19 08:19 04/19/19 14:06 Atarax PO 50 mg TIDPRN PRN Administration Anxiety Piperacillin Sod/Tazobactam 100 mls @ 200 mls/hr 04/18/19 14:00 04/19/19 13: 59 Sod 2.25 gm/ Sodium Chloride IVPB 100 mls Q8HR GUILLE Administration Ipratropium [place] 2.5 ml 04/13/19 18:20 04/19/19 14:30 Atrovent NEB Not Given [id number] GUILLE Methylprednisolone Sodium Succinate 20 mg 04/18/19 12:00 04/19/19 12:07 Solu-Medrol IVP 20 mg Q6HR GUILLE Administration Metoprolol Succinate 50 mg 04/14/19 09:00 04/19/19 09:31 Toprol Xl PO 50 mg DAILY GUILLE Administration Montelukast Sodium 10 mg 04/14/19 09:00 04/19/19 09:31 Singulair PO 10 mg DAILY GUILLE Administration Nicotine 14 mg 04/14/19 08:30 04/19/19 09:31 Nicoderm Patch TD 14 mg Q24HR GUILLE Administration Pantoprazole Sodium 40 mg 04/14/19 09:00 04/19/19 09:31 Protonix PO 40 mg DAILY GUILLE Administration Sodium Chloride 10 ml 04/13/19 16:11 04/15/19 21:40 Flush - Normal Saline IVF 10 ml PRN PRN Administration Saline Flush - Exam General Appearance: NAD, awake alert Eye: anicteric sclera ENT: normocephalic atraumatic, moist mucosa Neck: supple, symmetric, no lymphadenopathy Heart: RRR, no murmur, normal peripheral pulses Respiratory: no rales, no ronchi, no tachypnea, wheezes (few scattered - mild) Gastrointestinal: soft, non-tender, normal bowel sounds, no guarding, no rigidity Extremities: 1+ LE edema Skin: no lesions, no rashes Neurological: cranial nerve grossly intact, no focal deficits Musculoskeletal: generalized weakness Psychiatric: A&O x 3 Hosp A/P (1) COPD exacerbation Code(s): J44.1 - CHRONIC OBSTRUCTIVE PULMONARY DISEASE W (ACUTE) EXACERBATION Status: Acute (2) General weakness Code(s): R53.1 - WEAKNESS Status: Acute (3) GERD (gastroesophageal reflux disease) Code(s): K21.9 - GASTRO-ESOPHAGEAL REFLUX DISEASE WITHOUT ESOPHAGITIS Status: Chronic Qualifiers: Esophagitis presence: esophagitis presence not specified Qualified Code(s) : K21.9 - Gastro-esophageal reflux disease without esophagitis (4) Acute renal failure superimposed on chronic kidney disease Code(s): N17.9 - ACUTE KIDNEY FAILURE, UNSPECIFIED; N18.9 - CHRONIC KIDNEY DISEASE, UNSPECIFIED Status: Acute (5) Acute respiratory failure with hypoxia Code(s): J96.01 - ACUTE RESPIRATORY FAILURE WITH HYPOXIA Status: Acute (6) Metabolic encephalopathy Code(s): G93.41 - METABOLIC ENCEPHALOPATHY Status: Acute (7) Pneumonia Code(s): J18.9 - PNEUMONIA, UNSPECIFIED ORGANISM Status: Acute (8) SOB (shortness of breath) Code(s): R06.02 - SHORTNESS OF BREATH Status: Acute (9) COPD (chronic obstructive pulmonary disease) Status: Chronic Qualifiers: COPD type: COPD with acute exacerbation Qualified Code(s): J44.1 - Chronic obstructive pulmonary disease with (acute) exacerbation (10) Dyslipidemia Code(s): E78.5 - HYPERLIPIDEMIA, UNSPECIFIED Status: Chronic (11) Dyspnea Code(s): R06.00 - DYSPNEA, UNSPECIFIED Status: Chronic (12) Generalized anxiety disorder Code(s): F41.1 - GENERALIZED ANXIETY DISORDER Status: Chronic (13) Hypertension Code(s): I10 - ESSENTIAL (PRIMARY) HYPERTENSION Status: Chronic Qualifiers: Hypertension type: essential hypertension Qualified Code(s): I10 - Essential (primary) hypertension (14) Acute respiratory failure with hypoxia Code(s): J96.01 - ACUTE RESPIRATORY FAILURE WITH HYPOXIA Status: Resolved - Plan Plan: medical unit pulmonology consultation, recommendations appreciated broad-spectrum IV antibiotics IV steroids breathing treatments scheduled and as needed maintenance therapy for COPD acute kidney injury is improving since hospitalization afebrile sense 04/14 continue other home medications as able blood pressure control blood sugar control G.I. prophylaxis DVT prophylaxis replace electrolytes as needed
[2019-04-20] MEDS: Ipratropium Bromide 2.5 ml Neb NEB SCH ×3 (00:03→07:31)
[2019-04-20] MEDS: HYDROcodone/Acetaminophen 10/325 mg Tablet PO PRN ×3 (00:04→23:41)
[2019-04-20] MEDS: methylPREDNISolone Sod Succ 40 MG VIAL IVP SCH ×5 (00:06→23:41)
[2019-04-20] MEDS: Piperacillin/Tazobactam 2.25 GM in Sodium Chloride 0.9% 100 ML IVPB SCH ×3 (05:06→20:22)
[2019-04-20 07:21] LABS: Anion Gap 20 mmol/L (10-20); BUN (Urea Nitrogen) 62 mg/dL (9.8-20.1); Calc. Creatinine Clearance 26 mL/min (70-130); Calcium 9.5 mg/dL (7.8-10.44); Carbon Dioxide 22 mmol/L (23-31); Chloride 98 mmol/L (98-107); Estimated GFR-MDRD 23; Glucose 245 mg/dL (80-115); Potassium 4.6 mmol/L (3.5-5.1); Sodium 135 mmol/L (136-145)
[2019-04-20] MEDS: Azithromycin 250 MG TAB PO SCH (09:54)
[2019-04-20] MEDS: Nicotine 14 MG PATCH TD SCH (09:54)
[2019-04-20] MEDS: Montelukast Sodium 10 mg Tablet PO SCH (09:54)
[2019-04-20] MEDS: Escitalopram Oxalate 20 mg Tablet PO SCH (09:54)
[2019-04-20] MEDS: Oseltamivir 75 MG CAP PO SCH ×2 (09:55→20:22)
[2019-04-20] MEDS: Folic Acid 1 MG TAB PO SCH (09:55)
[2019-04-20] MEDS: Heparin 5,000 UNITS/ML VIAL SC SCH ×2 (09:58→20:22)
[2019-04-20] MEDS: hydrOXYzine 25 MG TAB PO PRN (10:10)
[2019-04-20 11:48] VITALS: BMI 24.7
--- NOTE | 2019-04-20 12:25 | PRG ---
DATE OF SERVICE: 04/20/2019 SUBJECTIVE: The patient is feeling about the same. Had no new complaints. OBJECTIVE: VITAL SIGNS: Temperature is 97.6, pulse 87, respirations 18, O2 saturation 95% on 3 L, blood pressure 129/61. HEENT: Unremarkable. NECK: No adenopathy or JVD. LUNGS: She has mild intermittent wheezing bilaterally. CARDIAC: S1 and S2. Regular. ABDOMEN: Soft. EXTREMITIES: No edema. LABORATORY DATA: Sodium 135, potassium 4.6, BUN 62, creatinine 2.2, and glucose 245. ASSESSMENT: 1. Influenza A. 2. Chronic obstructive pulmonary disease with exacerbation. PLAN: Continue IV steroids, the Tamiflu, and the antibiotics. Hopefully, she will be able to go home in a day or two. Job ID: [id number]
--- NOTE | 2019-04-20 13:18 | PDOC.HOSPP ---
- Subjective Subjective: Seen and examined. Patient not breathing significantly better or worse per patient. On oscillatory exam I do feel like she is improved. Patient breathing comfortably on low-flow nasal cannula. Patient requesting benzodiazepine medication and states that she has been in drug detox program for this in the past. I recommended that since she has been off these medications and submission seven days ago she would benefit from staying away from these medications and continuing with hydroxyzine. All questions answered in detail. Patient happy with plan of care. - Objective Vital Signs & Weight: Vital Signs (12 hours) Temp Pulse Resp BP BP Pulse Ox 04/20/19 08:00 97.6 F 77 18 129/61 95 04/20/19 07:36 72 92 L 04/20/19 04:43 97.7 F 74 18 150/72 H 92 L 04/20/19 04:00 96 Weight Admit Weight 153 lb Weight 144 lb 6 oz I&O: 04/19/19 04/20/19 04/21/19 06:59 06:59 06:59 Intake Total 875 900 Output Total 250 Balance 875 650 Result Diagrams: 04/18/19 10:11 04/20/19 06:04 Radiology Reviewed by me: Yes Hospitalist ROS - Review of Systems All other systems reviewed; all pertinent +/- noted in HPI/Subj - Medication Medications: Active Medications Generic Name Dose Route Start Last Admin Trade Name Freq PRN Reason Stop Dose Admin Hydrocodone Bitart/Acetaminophen 2 tab 04/14/19 08:23 04/20/19 12:32 [place] 10/325 PO 2 tab Q6H PRN Administration Severe Pain (7-10) Albuterol/Ipratropium 3 ml 04/18/19 14:30 04/20/19 10:54 Duoneb NEB Not Given [id number] GUILLE Azithromycin 500 mg 04/14/19 09:00 04/20/19 09:54 Zithromax PO 500 mg DAILY GUILLE Administration Escitalopram Oxalate 20 mg 04/14/19 09:00 04/20/19 09:54 Lexapro PO 20 mg DAILY GUILLE Administration Folic Acid 1 mg 04/14/19 09:00 04/20/19 09:55 Folvite PO 1 mg DAILY GUILLE Administration Heparin Sodium (Porcine) 5,000 units 04/16/19 21:00 04/20/19 09:58 Heparin SC 5,000 units BID GUILLE Administration Hydroxyzine HCl 50 mg 04/14/19 08:19 04/20/19 10:10 Atarax PO 50 mg TIDPRN PRN Administration Anxiety Piperacillin Sod/Tazobactam 100 mls @ 200 mls/hr 04/19/19 22:00 04/20/19 05: 06 Sod 2.25 gm/ Sodium Chloride IVPB 100 mls Q8HR GUILLE Administration Methylprednisolone Sodium Succinate 20 mg 04/18/19 12:00 04/20/19 12:26 Solu-Medrol IVP 20 mg Q6HR GUILLE Administration Metoprolol Succinate 50 mg 04/14/19 09:00 04/20/19 09:54 Toprol Xl PO 50 mg DAILY GUILLE Administration Montelukast Sodium 10 mg 04/14/19 09:00 04/20/19 09:54 Singulair PO 10 mg DAILY GUILLE Administration Nicotine 14 mg 04/14/19 08:30 04/20/19 09:54 Nicoderm Patch TD 14 mg Q24HR GUILLE Administration Oseltamivir Phosphate 75 mg 04/20/19 09:00 04/20/19 09:55 Tamiflu PO 04/24/19 21:01 75 mg BID GUILLE Administration Pantoprazole Sodium 40 mg 04/14/19 09:00 04/20/19 09:54 Protonix PO 40 mg DAILY GUILLE Administration Sodium Chloride 10 ml 04/13/19 16:11 04/20/19 12:30 Flush - Normal Saline IVF 10 ml PRN PRN Administration Saline Flush - Exam General Appearance: NAD, awake alert Eye: anicteric sclera ENT: normocephalic atraumatic, moist mucosa Neck: supple, symmetric, no carotid bruit Heart: no murmur, no gallops, no rubs Respiratory: no rales, no ronchi, no tachypnea, wheezes (improving) Gastrointestinal: soft, non-tender, no guarding, no rigidity Extremities: 1+ LE edema Skin: no lesions, no rashes Neurological: cranial nerve grossly intact, no focal deficits Psychiatric: normal affect, A&O x 3 Hosp A/P (1) Influenza Code(s): J11.1 - FLU DUE TO UNIDENTIFIED INFLUENZA VIRUS W OTH RESP MANIFEST Status: Acute (2) COPD exacerbation Code(s): J44.1 - CHRONIC OBSTRUCTIVE PULMONARY DISEASE W (ACUTE) EXACERBATION Status: Acute (3) General weakness Code(s): R53.1 - WEAKNESS Status: Acute (4) GERD (gastroesophageal reflux disease) Code(s): K21.9 - GASTRO-ESOPHAGEAL REFLUX DISEASE WITHOUT ESOPHAGITIS Status: Chronic Qualifiers: Esophagitis presence: esophagitis presence not specified Qualified Code(s) : K21.9 - Gastro-esophageal reflux disease without esophagitis (5) Acute renal failure superimposed on chronic kidney disease Code(s): N17.9 - ACUTE KIDNEY FAILURE, UNSPECIFIED; N18.9 - CHRONIC KIDNEY DISEASE, UNSPECIFIED Status: Acute (6) Acute respiratory failure with hypoxia Code(s): J96.01 - ACUTE RESPIRATORY FAILURE WITH HYPOXIA Status: Acute (7) Metabolic encephalopathy Code(s): G93.41 - METABOLIC ENCEPHALOPATHY Status: Acute (8) Pneumonia Code(s): J18.9 - PNEUMONIA, UNSPECIFIED ORGANISM Status: Acute (9) SOB (shortness of breath) Code(s): R06.02 - SHORTNESS OF BREATH Status: Acute (10) COPD (chronic obstructive pulmonary disease) Status: Chronic Qualifiers: COPD type: COPD with acute exacerbation Qualified Code(s): J44.1 - Chronic obstructive pulmonary disease with (acute) exacerbation (11) Dyslipidemia Code(s): E78.5 - HYPERLIPIDEMIA, UNSPECIFIED Status: Chronic (12) Dyspnea Code(s): R06.00 - DYSPNEA, UNSPECIFIED Status: Chronic (13) Generalized anxiety disorder Code(s): F41.1 - GENERALIZED ANXIETY DISORDER Status: Chronic (14) Hypertension Code(s): I10 - ESSENTIAL (PRIMARY) HYPERTENSION Status: Chronic Qualifiers: Hypertension type: essential hypertension Qualified Code(s): I10 - Essential (primary) hypertension (15) Acute respiratory failure with hypoxia Code(s): J96.01 - ACUTE RESPIRATORY FAILURE WITH HYPOXIA Status: Resolved - Plan Plan: medical unit pulmonology consultation, recommendations appreciated broad-spectrum IV antibiotics Oral antiviral therapy for Flu IV steroids breathing treatments scheduled and as needed maintenance therapy for COPD acute kidney injury is improving since hospitalization afebrile sense 04/14 continue other home medications as able blood pressure control blood sugar control G.I. prophylaxis DVT prophylaxis replace electrolytes as needed
--- NOTE | 2019-04-20 15:42 | PRG ---
DATE OF SERVICE: 04/20/2019 SUBJECTIVE: Patient was seen and examined at bedside and overnight events noted. Patient denies any shortness of breath or chest pain or palpitation. No history of nausea or vomiting or diarrhea or fever or chills or cramps. OBJECTIVE: GENERAL: This is a well-built female, in no apparent distress. VITAL SIGNS: Temperature 97.6, pulse 75, respiratory rate 18, and blood pressure 129/61. HEENT: Atraumatic, normocephalic. Oral mucosa is moist NECK: Supple. CARDIOVASCULAR: S1, S2 heard. Rate and rhythm regular. RESPIRATORY: Clear to auscultation. GASTROINTESTINAL: Abdomen is soft. MUSCULOSKELETAL: No tenderness. No edema. DERMATOLOGIC: No skin rash. NEUROLOGIC: Alert and awake and oriented X3. No focal neurologic deficits. Moving all the extremities. PSYCHIATRIC: Mood and affect normal. LABORATORY DATA: Potassium 4.6, BUN is 62, and creatinine is 2.1. ASSESSMENT AND PLAN: 1. Acute kidney injury on chronic kidney disease, stage 4, stable. 2. Edema, controlled. 3. History of hypertension. 4. Hyponatremia, stable. 5. Anemia of chronic disease. Labs are stable. We will follow. Job ID: [id number]
[2019-04-21] MEDS: methylPREDNISolone Sod Succ 40 MG VIAL IVP SCH ×4 (05:45→23:42)
[2019-04-21] MEDS: Piperacillin/Tazobactam 2.25 GM in Sodium Chloride 0.9% 100 ML IVPB SCH (05:45)
[2019-04-21] MEDS: Nicotine 14 MG PATCH TD SCH (08:37)
[2019-04-21] MEDS: Azithromycin 250 MG TAB PO SCH (08:37)
[2019-04-21] MEDS: Oseltamivir 75 MG CAP PO SCH ×2 (08:37→20:53)
[2019-04-21] MEDS: Folic Acid 1 MG TAB PO SCH (08:37)
[2019-04-21] MEDS: Heparin 5,000 UNITS/ML VIAL SC SCH ×2 (08:37→20:53)
[2019-04-21] MEDS: Escitalopram Oxalate 20 mg Tablet PO SCH (08:37)
[2019-04-21] MEDS: Montelukast Sodium 10 mg Tablet PO SCH (08:37)
[2019-04-21] MEDS: HYDROcodone/Acetaminophen 10/325 mg Tablet PO PRN ×2 (08:48→21:04)
--- NOTE | 2019-04-21 10:05 | PRG ---
DATE OF SERVICE: 04/21/2019 SUBJECTIVE: The patient is doing better, but does not want to go home yet. OBJECTIVE: VITAL SIGNS: Temperature 97.7, pulse 68, respirations 16, O2 saturation 96%, and blood pressure 164/76. HEENT: Unremarkable. NECK: No adenopathy or JVD. CHEST: Clear without wheezing, rhonchi. CARDIAC: S1, S2. Regular. ABDOMEN: Soft. EXTREMITIES: No edema. ASSESSMENT: 1. Influenza A. 2. Chronic obstructive pulmonary disease with exacerbation. PLAN: The patient will finish out her Tamiflu. I will go ahead and stop the Zosyn and put her on Omnicef orally. She can complete a total of five days of that. In my opinion, she is stable to go home any time today or tomorrow. Job ID: [id number]
--- NOTE | 2019-04-21 14:01 | PDOC.HOSPP ---
- Subjective Subjective: Seen and examined. Patient overall clinically improving. Breathing more comfortably. Afebrile. Patient being de-escalated on antibiotics. Patient remains on low-flow nasal cannula to maintain O2 saturation's. Patient has not been on supplemental oxygen prior to admission. Patient is ambulating with the assistance of physical therapy and walking program. Patient is unsure if she is ready to go home, discussed the possibility of rehabilitation placement. - Objective Vital Signs & Weight: Vital Signs (12 hours) Temp Pulse Resp BP Pulse Ox 04/21/19 11:07 68 16 96 04/21/19 08:00 97.7 F 68 16 164/76 H 96 04/21/19 06:50 69 16 96 04/21/19 02:00 76 16 92 L Weight Admit Weight 153 lb Weight 144 lb 6 oz I&O: 04/20/19 04/21/19 04/22/19 06:59 06:59 06:59 Intake Total 900 265 Output Total 250 Balance 650 265 Result Diagrams: 04/18/19 10:11 04/20/19 06:04 Radiology Reviewed by me: Yes Hospitalist ROS - Review of Systems All other systems reviewed; all pertinent +/- noted in HPI/Subj - Medication Medications: Active Medications Generic Name Dose Route Start Last Admin Trade Name Freq PRN Reason Stop Dose Admin Hydrocodone Bitart/Acetaminophen 2 tab 04/14/19 08:23 04/21/19 08:48 [place] 10/325 PO 2 tab Q6H PRN Administration Severe Pain (7-10) Albuterol/Ipratropium 3 ml 04/18/19 14:30 04/21/19 11:07 Duoneb NEB 3 ml [id number] GUILLE Administration Azithromycin 500 mg 04/14/19 09:00 04/21/19 08:37 Zithromax PO 500 mg DAILY GUILLE Administration Escitalopram Oxalate 20 mg 04/14/19 09:00 04/21/19 08:37 Lexapro PO 20 mg DAILY GUILLE Administration Folic Acid 1 mg 04/14/19 09:00 04/21/19 08:37 Folvite PO 1 mg DAILY GUILLE Administration Heparin Sodium (Porcine) 5,000 units 04/16/19 21:00 04/21/19 08:37 Heparin SC 5,000 units BID GUILLE Administration Hydroxyzine HCl 50 mg 04/14/19 08:19 04/20/19 10:10 Atarax PO 50 mg TIDPRN PRN Administration Anxiety Methylprednisolone Sodium Succinate 20 mg 04/18/19 12:00 04/21/19 13:17 Solu-Medrol IVP 20 mg Q6HR GUILLE Administration Metoprolol Succinate 50 mg 04/14/19 09:00 04/21/19 08:37 Toprol Xl PO 50 mg DAILY GUILLE Administration Montelukast Sodium 10 mg 04/14/19 09:00 04/21/19 08:37 Singulair PO 10 mg DAILY GUILLE Administration Nicotine 14 mg 04/14/19 08:30 04/21/19 08:37 Nicoderm Patch TD 14 mg Q24HR GUILLE Administration Oseltamivir Phosphate 75 mg 04/20/19 09:00 04/21/19 08:37 Tamiflu PO 04/24/19 21:01 75 mg BID GUILLE Administration Pantoprazole Sodium 40 mg 04/14/19 09:00 04/21/19 08:37 Protonix PO 40 mg DAILY GUILLE Administration Sodium Chloride 10 ml 04/13/19 16:11 04/20/19 17:01 Flush - Normal Saline IVF 10 ml PRN PRN Administration Saline Flush - Exam General Appearance: NAD, awake alert Eye: PERRL ENT: normocephalic atraumatic, moist mucosa Neck: supple, symmetric, no lymphadenopathy Heart: no murmur, no gallops, no rubs Respiratory: no rales, no ronchi, normal chest expansion, no tachypnea, wheezes (faint improving) Gastrointestinal: soft, non-tender, non-distended, no guarding, no rigidity Extremities: no edema Skin: no lesions, no rashes Neurological: cranial nerve grossly intact, no focal deficits Musculoskeletal: generalized weakness Psychiatric: normal affect, A&O x 3 Hosp A/P (1) Influenza Code(s): J11.1 - FLU DUE TO UNIDENTIFIED INFLUENZA VIRUS W OTH RESP MANIFEST Status: Acute (2) COPD exacerbation Code(s): J44.1 - CHRONIC OBSTRUCTIVE PULMONARY DISEASE W (ACUTE) EXACERBATION Status: Acute (3) General weakness Code(s): R53.1 - WEAKNESS Status: Acute (4) GERD (gastroesophageal reflux disease) Code(s): K21.9 - GASTRO-ESOPHAGEAL REFLUX DISEASE WITHOUT ESOPHAGITIS Status: Chronic Qualifiers: Esophagitis presence: esophagitis presence not specified Qualified Code(s) : K21.9 - Gastro-esophageal reflux disease without esophagitis (5) Acute renal failure superimposed on chronic kidney disease Code(s): N17.9 - ACUTE KIDNEY FAILURE, UNSPECIFIED; N18.9 - CHRONIC KIDNEY DISEASE, UNSPECIFIED Status: Acute (6) Acute respiratory failure with hypoxia Code(s): J96.01 - ACUTE RESPIRATORY FAILURE WITH HYPOXIA Status: Acute (7) Metabolic encephalopathy Code(s): G93.41 - METABOLIC ENCEPHALOPATHY Status: Acute (8) Pneumonia Code(s): J18.9 - PNEUMONIA, UNSPECIFIED ORGANISM Status: Acute (9) SOB (shortness of breath) Code(s): R06.02 - SHORTNESS OF BREATH Status: Acute (10) COPD (chronic obstructive pulmonary disease) Status: Chronic Qualifiers: COPD type: COPD with acute exacerbation Qualified Code(s): J44.1 - Chronic obstructive pulmonary disease with (acute) exacerbation (11) Dyslipidemia Code(s): E78.5 - HYPERLIPIDEMIA, UNSPECIFIED Status: Chronic (12) Dyspnea Code(s): R06.00 - DYSPNEA, UNSPECIFIED Status: Chronic (13) Generalized anxiety disorder Code(s): F41.1 - GENERALIZED ANXIETY DISORDER Status: Chronic (14) Hypertension Code(s): I10 - ESSENTIAL (PRIMARY) HYPERTENSION Status: Chronic Qualifiers: Hypertension type: essential hypertension Qualified Code(s): I10 - Essential (primary) hypertension (15) Acute respiratory failure with hypoxia Code(s): J96.01 - ACUTE RESPIRATORY FAILURE WITH HYPOXIA Status: Resolved - Plan Plan: medical unit pulmonology consultation, recommendations appreciated Oral antibiotics Oral antiviral therapy for Flu steroids breathing treatments scheduled and as needed maintenance therapy for COPD acute kidney injury is improving since hospitalization afebrile sense 04/14 continue other home medications as able blood pressure control blood sugar control G.I. prophylaxis DVT prophylaxis replace electrolytes as needed Disposition: With clinical improvement patient may be ready for D/c in the next 24 - 48 hours. Home with home health vs SNF if she is unable to care for herself at home.
--- NOTE | 2019-04-21 16:50 | PRG ---
DATE OF SERVICE: 04/21/2019 SUBJECTIVE: Patient was seen and examined at bedside and overnight events noted. Patient denies any shortness of breath or chest pain or palpitation. No history of nausea or vomiting or diarrhea or fever or chills or cramps. OBJECTIVE: GENERAL: This is a well-built female, in no apparent distress. VITAL SIGNS: Temperature 97.7. Heart rate 68. Respiratory rate 16. Blood pressure 164/73. HEENT: Atraumatic, normocephalic. Oral mucosa is moist NECK: Supple. CARDIOVASCULAR: S1, S2 heard. Rate and rhythm regular. RESPIRATORY: Clear to auscultation. GASTROINTESTINAL: Abdomen is soft. MUSCULOSKELETAL: No tenderness. No edema. DERMATOLOGIC: No skin rash. NEUROLOGIC: Alert and awake and oriented X3. No focal neurologic deficits. Moving all the extremities. PSYCHIATRIC: Mood and affect normal. LABORATORY DATA: Potassium 4.6, BUN is 62, and creatinine is 2.1. ASSESSMENT AND PLAN: 1. Acute kidney injury on chronic kidney disease, stage 4, stable. 2. Hyponatremia. 3. Edema. 4. Hypertension. 5. Anemia of chronic disease. Labs with fluctuations. Avoid nephrotoxins. We will follow. Job ID: [id number]
[2019-04-21 20:39] VITALS: TEMP 97.9
[2019-04-21] MEDS: hydrOXYzine 25 MG TAB PO PRN (23:46)
[2019-04-22] MEDS: methylPREDNISolone Sod Succ 40 MG VIAL IVP SCH ×2 (05:47→12:12)
[2019-04-22 07:13] LABS: Anion Gap 12 mmol/L (10-20); BUN (Urea Nitrogen) 61 mg/dL (9.8-20.1); Calc. Creatinine Clearance 30 mL/min (70-130); Calcium 9.2 mg/dL (7.8-10.44); Carbon Dioxide 30 mmol/L (23-31); Chloride 102 mmol/L (98-107); Estimated GFR-MDRD 26; Glucose 196 mg/dL (80-115); Potassium 5.1 mmol/L (3.5-5.1); Sodium 139 mmol/L (136-145)
[2019-04-22] MEDS: Oseltamivir 75 MG CAP PO SCH (08:59)
[2019-04-22] MEDS: Nicotine 14 MG PATCH TD SCH (08:59)
[2019-04-22] MEDS: Folic Acid 1 MG TAB PO SCH (09:00)
[2019-04-22] MEDS: Heparin 5,000 UNITS/ML VIAL SC SCH (09:00)
[2019-04-22] MEDS: Montelukast Sodium 10 mg Tablet PO SCH (09:00)
[2019-04-22] MEDS: Azithromycin 250 MG TAB PO SCH (09:00)
[2019-04-22] MEDS: Escitalopram Oxalate 20 mg Tablet PO SCH (09:00)
[2019-04-22] MEDS ORDERED: Cefdinir 300 MG CAP PO SCH (09:00)
[2019-04-22] MEDS: HYDROcodone/Acetaminophen 10/325 mg Tablet PO PRN (09:04)
[2019-04-22 14:28] VITALS: BP 170/81
--- NOTE | 2019-04-22 14:41 | PRG ---
DATE OF SERVICE: 04/22/2019 SUBJECTIVE: Patient was seen and examined at bedside and overnight events noted. Patient denies any shortness of breath or chest pain or palpitation. No history of nausea or vomiting or diarrhea or fever or chills or cramps. OBJECTIVE: GENERAL: This is a well-built female, in no apparent distress. VITAL SIGNS: Temperature 97.9. Heart rate 67. Respiratory rate 18. Blood pressure 176/79. HEENT: Atraumatic, normocephalic. Oral mucosa is moist NECK: Supple. CARDIOVASCULAR: S1, S2 heard. Rate and rhythm regular. RESPIRATORY: Clear to auscultation. GASTROINTESTINAL: Abdomen is soft. MUSCULOSKELETAL: No tenderness. No edema. DERMATOLOGIC: No skin rash. NEUROLOGIC: Alert and awake and oriented X3. No focal neurologic deficits. Moving all the extremities. PSYCHIATRIC: Mood and affect normal. LABORATORY DATA: Potassium is 5.1, BUN is 61, creatinine is 1.9. ASSESSMENT AND PLAN: 1. Acute kidney injury on chronic kidney disease, stage 4, stable. 2. Hyponatremia. Limit fluid intake. 3. Edema. 4. Hypertension. 5. Mild hyperkalemia. 6. Anemia. Follow up with Dr. Pride in the clinic in 1 to 2 weeks. Job ID: [id number]
--- NOTE | 2019-04-22 20:09 | DIS ---
DATE OF ADMISSION: 04/13/2019 DATE OF DISCHARGE: 04/22/2019 REASON FOR HOSPITALIZATION: Shortness of breath. SIGNIFICANT FINDINGS: The patient was identified to have influenza A positive and was diagnosed with COPD with acute exacerbation. PROCEDURES PERFORMED AND TREATMENTS RENDERED: The patient was admitted to the hospital for close management on 04/13/2019-please see full history and physical, progress notes, and consultation notes for all details. The patient was placed on pulmonary specific antibiotics and had some improvement in her clinical condition. Pulmonology was consulted-please see full consultation notes and progress notes for details. Pulmonology adjusting antibiotics, steroids, and antiviral therapy appropriately-please see full progress notes for details. 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 With maximum medical therapy from all specialists, the patient did have a good clinical improvement. The patient was titrated off oxygen therapy and placed on all oral regimen on 04/22/2019. The patient was recommended safe for discharge by Pulmonology with close followup in the outpatient setting. The patient was recommended safe for discharge by Nephrology with close followup in the outpatient setting. The patient was recommended to complete a full course of oral antibiotics and oral steroids for resolution of COPD exacerbation. The patient was recommended to follow up with primary care physician and all specialists in the upcoming weeks. The patient was recommended to return to acute care hospital immediately if signs or symptoms return, worsen, or any other new symptoms occur. CONDITION ON DISCHARGE: Stable. SPECIFIC INSTRUCTIONS FOR THE PATIENT/FAMILY: 1. The patient is recommended to take all medications as directed-to be re-evaluated by primary care physician, Pulmonology, and Nephrology in the outpatient clinic in the upcoming 1-2 weeks. 2. The patient is recommended to follow up with primary care physician in the next 5 to 7 days-or return to acute care hospital immediately if unable to be seen. 3. The patient is recommended to follow up with Pulmonology, Dr. Singh in the next 1 to 2 weeks-or return to acute care hospital immediately if unable to be seen. 4. The patient is recommended to follow up with Nephrology, Dr. Syed in the next 1 to 2 weeks-or return to acute care hospital immediately if unable to be seen. The patient is recommended to comply with strict renal diet-or return to acute care hospital immediately. 5. The patient is recommended to return to acute care hospital immediately if signs or symptoms return, worsen, or any other new symptoms occur. 6. The patient is recommended to use Nicoderm patch and abstain from any tobacco use as this will worsen her COPD and likely result in future exacerbations. DISCHARGE MEDICATIONS: Please see full discharge medication list for details. 1. Cefdinir 600 mg p.o. daily. 2. Tamiflu 75 mg one tablet p.o. b.i.d. 3. Medrol Dosepak 4 mg-use as directed. 4. All other home medications were continued without changes. TIME SPENT: greater than 35 minutes spent coordinating care and discharge process for this patient. The patient was seen and evaluated by Physical Therapy and Occupational Therapy who recommended the patient safe for discharge home. Please see full notes from PT and OT for details. Job ID: [id number]
--- NOTE | 2019-04-24 08:21 | PQF ---
KELLIE BATISTA ERIK [id number] CLINICAL DOCUMENTATION CLARIFICATION FORM: POST DISCHARGE Addendum to original discharge summary date: ____ Late entry note date: __ DATE: 04/24/2018 ATTN: LELE CHILDRESS Please exercise your independent, professional judgment in responding to the clarification form. Clinical indicators are provided on the bottom of this form for your review Please check appropriate box(es): [ XX ] Sepsis due to: (Pna, UTI, gangrenous gall bladder, etc.) Due to PNA Due to: [ ] Device (please specify) [ ] Implant [ ] Graft [ ] Infusion [ ] SIRS due to non-infectious process (please specify etiology) [ ] with organ dysfunction [ ] without organ dysfunction [ ] Severe sepsis with acute organ dysfunction of: (Examples: respiratory failure, encephalopathy, acute kidney failure, other) [ ] Septic Shock [ ] Localized infection without sepsis [ ] Other diagnosis [ ] Unable to determine In addition, please specify: Present on Admission (POA): [ XX ] Yes [ ] No [ ] Unable to determine For continuity of documentation, please document condition throughout progress notes and discharge summary. Thank You. CLINICAL INDICATORS - SIGNS / SYMPTOMS / LABS -Lobe pneumonia- ED record, 04/13, Soni Castellano DO -WBC: 13.8H- Hospitalist H&P, 04/13, Jasvir Caballero MD -Streptococcus pneumoniae bacteremia- Hospitalist H&P, 04/13, Jasvir Caballero MD -Temp: 97.4L-04/15, Pulse: 70-04/18, RR: 22H 04/18- Vital signs RISK FACTORS - Acute respiratory failure with hypoxia- Hospitalist H&P, 04/13, Jasvir Caballero MD - Acute kidney injury- Hospitalist H&P, 04/13, Jasvir Caballero MD TREATMENTS: - Rocephin.IV- JUN, 04/13 - Levaquin.IV- JUN, 04/13 (This form is maintained as a part of the permanent medical record) [id number]. All Rights Reserved Shira Colon [not provided] [not provided] MTDD
== END 2019-04-22 14:28 | disposition home or self-care (01) | DRG 871 ==
LOC: ERS 08:04 → ERHOLD 11:32 → 2NO 16:22 → T4-B 04-17 11:03
PROVIDERS: ADMIT Internal Medicine Sleep Medicine; ATTEND Internal Medicine Sleep Medicine
DX: A41.9 Sepsis, unspecified organism (principal); J96.01 Acute respiratory failure with hypoxia; J18.9 Pneumonia, unspecified organism; J44.1 Chronic obstructive pulmonary disease with (acute) exacerbation; I13.0 Hypertensive heart and chronic kidney disease with heart failure and stage 1 through stage 4 chronic kidney disease, or unspecified chronic kidney disease; N17.9 Acute kidney failure, unspecified; N18.4 Chronic kidney disease, stage 4 (severe); E87.1 Hypo-osmolality and hyponatremia; J10.1 Influenza due to other identified influenza virus with other respiratory manifestations; K21.9 Gastro-esophageal reflux disease without esophagitis; N18.9 Chronic kidney disease, unspecified; K58.9 Irritable bowel syndrome, unspecified; I95.9 Hypotension, unspecified; E78.5 Hyperlipidemia, unspecified; I50.9 Heart failure, unspecified; E87.6 Hypokalemia; E78.00 Pure hypercholesterolemia, unspecified; E66.9 Obesity, unspecified; F41.9 Anxiety disorder, unspecified; D63.1 Anemia in chronic kidney disease; F32.9 Major depressive disorder, single episode, unspecified; M19.90 Unspecified osteoarthritis, unspecified site; Z86.73 Personal history of transient ischemic attack (TIA), and cerebral infarction without residual deficits; Z90.49 Acquired absence of other specified parts of digestive tract; Z88.6 Allergy status to analgesic agent; Z90.710 Acquired absence of both cervix and uterus; Z88.2 Allergy status to sulfonamides; Z88.8 Allergy status to other drugs, medicaments and biological substances
CPT/HCPCS: 36415; 71045; 80048; 80053; 82805; 83605; 83735; 83880; 84484; 85025; 87040; 87070; 87077; 87149; 87205; 87633; 93005; 93798; 94640; 94644; 94760; 96365; 96367; 96375; J0696; J1644; J1940; J1956; J2543; J2920; J3475; J3490; J7611; J7620

== ENCOUNTER 2019-06-07 13:14 | Outpatient (CLI) | payer MEDICARE, MEDICAID ==
--- NOTE | 2019-06-07 14:20 | RAD ---
PA AND LATERAL CHEST: Date: 06/07/2019 COMPARISON: 04/18/19. FINDINGS: Heart size appears slightly enlarged. Interstitial markings are increased, although improved as isaiah red to the prior exam. Some mild vascular engorgement is noted. IMPRESSION: Cardiomegaly. Still with persistent increased interstitial changes. I cannot exclude this as represen ting some element of edema, but the more patchy parenchymal lung changes have largely resolved. POS: TPC
== END 2019-06-07 13:15 | disposition home or self-care (01) ==
LOC: RAD 13:14
PROVIDERS: ATTEND Internal Medicine Critical Care Medicine
DX: R06.00 Dyspnea, unspecified (principal); I51.7 Cardiomegaly
CPT/HCPCS: 71046

== ENCOUNTER 2019-07-01 22:00 | Inpatient (IN) | payer MEDICARE, MEDICAID ==
[2019-07-01 22:59] LABS: #Basophils 0.1 thou/uL (0.0-0.2); #Eosinphils 0.3 thou/uL (0.0-0.7); #Lymphocytes 2.6 thou/uL (1.20-3.40); #Monocytes 0.8 thou/uL (0.11-0.59); #Neutrophils 2.8 thou/uL (1.40-6.50); %Basophils 0.9 % (0.0-1.0); %Eosinophils 4.5 % (0.0-10.0); %Lymphocytes 39.7 % (21.0-51.0); %Monocytes 12.8 % (0.0-10.0); %Neutrophils 42.1 % (42.0-75.0); Hemoglobin 11.2 g/dL (12.0-16.0); Mean Corpuscular Hemoglobin 31.7 pg (27.0-31.0); Mean Corpuscular Volume 93.3 fL (78.0-98.0); Mean Platelet Volume 8.8 fL (7.4-10.4); Platelet Count 171 thou/uL (130-400); RBC Distribution Width 12.9 % (11.5-14.5); Red Blood Cell (RBC) Count 3.53 mill/uL (4.20-5.40); White Blood Cell (WBC) Count 6.6 thou/uL (4.8-10.8)
--- NOTE | 2019-07-01 23:07 | CT ---
Head CT without contrast 07/01/2019: COMPARISON: 01/16/2019 HISTORY: Right-sided numbness TECHNIQUE: Axial CT imaging at 5 mm intervals from vertex through skull base without contrast FINDINGS: Mild stable prominence of the subdural space noted in bilateral frontal regions. Imaged par anasal sinuses and mastoid air cells are well-aerated. No displaced calvarial fracture, intracranial hemorrhage, midline shift, or mass effect. White matter hypodensity again noted, suggest ing small vessel disease. IMPRESSION: No acute findings.
[2019-07-01 23:15] LABS: ALT (SGPT) 10 U/L (8-55); AST (SGOT) 14 U/L (5-34); Albumin 3.5 g/dL (3.4-4.8); Alkaline Phosphatase 93 U/L (40-110); Anion Gap 13 mmol/L (10-20); BUN (Urea Nitrogen) 30 mg/dL (9.8-20.1); Bilirubin, Total 0.3 mg/dL (0.2-1.2); Calc. Creatinine Clearance 0 mL/min (70-130); Calcium 8.6 mg/dL (7.8-10.44); Carbon Dioxide 23 mmol/L (23-31); Chloride 103 mmol/L (98-107); Estimated GFR-MDRD 24; Globulin 2.6 g/dL (2.4-3.5); Glucose 82 mg/dL (80-115); Potassium 4.1 mmol/L (3.5-5.1); Protein, Total 6.1 g/dL (6.0-8.3); Sodium 135 mmol/L (136-145)
[2019-07-01 23:35] LABS: CKMB 0.7 ng/mL (0-6.6)
[2019-07-02] MEDS ORDERED: Acetaminophen 325 MG TAB PO PRN (00:30)
[2019-07-02 00:48] LABS: Bilirubin Negative (Negative); Blood, Urine Moderate (Negative); Glucose, Urine (Dipstick) Negative (Negative); Leukocyte Moderate (Negative); Nitrite Negative (Negative); Protein, Urine (Dipstick) 30 mg/dL (Neg-Trace); Urobilinogen 0.2 mg/dL (Less than 2)
[2019-07-02 00:55] LABS: Clarity Hazy (Clear)
[2019-07-02 01:08] LABS: Amphetamine Not Detected (NotDetected); Barbiturates Screen Not Detected (NotDetected); Benzodiazepine Screen Detected (NotDetected); Cocaine Metabolite Screen Not Detected (NotDetected); Medtox Control Line Valid? VALID (VALID); Medtox Reader # READER 4; Methadone Not Detected (NotDetected); Methamphetamine Not Detected (NotDetected); Opiate Screen Detected (NotDetected); Oxycodone Screen Not Detected (NotDetected); Phencyclidine (PCP) Not Detected (NotDetected); THC/Cannabinoid Screen Not Detected (NotDetected); Tricyclic Screen Not Detected (NotDetected)
[2019-07-02] MEDS ORDERED: Aspirin 325 MG TAB ONE (01:10)
[2019-07-02 01:52] LABS: #Basophils 0.1 thou/uL (0.0-0.2); #Eosinphils 0.4 thou/uL (0.0-0.7); #Lymphocytes 2.7 thou/uL (1.20-3.40); #Monocytes 0.7 thou/uL (0.11-0.59); #Neutrophils 2.5 thou/uL (1.40-6.50); %Eosinophils 6.1 % (0.0-10.0); %Lymphocytes 43.4 % (21.0-51.0); %Monocytes 10.6 % (0.0-10.0); Hemoglobin 11.6 g/dL (12.0-16.0); Mean Corpuscular HGB CONC 33.5 g/dL (32.0-36.0); Mean Corpuscular Hemoglobin 31.4 pg (27.0-31.0); Mean Corpuscular Volume 93.7 fL (78.0-98.0); Platelet Count 167 thou/uL (130-400); Red Blood Cell (RBC) Count 3.69 mill/uL (4.20-5.40); White Blood Cell (WBC) Count 6.3 thou/uL (4.8-10.8)
[2019-07-02 02:18] LABS: Troponin I 0.014 ng/mL (< 0.028)
[2019-07-02 02:32] LABS: ALT (SGPT) 11 U/L (8-55); AST (SGOT) 16 U/L (5-34); Albumin 3.5 g/dL (3.4-4.8); Alkaline Phosphatase 98 U/L (40-110); Anion Gap 16 mmol/L (10-20); BUN (Urea Nitrogen) 29 mg/dL (9.8-20.1); Bilirubin, Total 0.2 mg/dL (0.2-1.2); Calc. Creatinine Clearance 0 mL/min (70-130); Calcium 8.6 mg/dL (7.8-10.44); Carbon Dioxide 18 mmol/L (23-31); Chloride 107 mmol/L (98-107); Estimated GFR-MDRD 27; Globulin 2.9 g/dL (2.4-3.5); Glucose 72 mg/dL (80-115); Potassium 4.3 mmol/L (3.5-5.1); Protein, Total 6.4 g/dL (6.0-8.3); Sodium 137 mmol/L (136-145)
[2019-07-02 03:22] VITALS: BMI 27.0
[2019-07-02 03:59] LABS: RBC/HPF 0-3 HPF (0-3); WBC/HPF Greater than 50 HPF (0-3)
[2019-07-02 04:00] LABS: Bacteria/HPF 1+ HPF (None Seen)
[2019-07-02] MEDS: Sodium Chloride 0.9% 1,000 ML IV SCH ×2 (04:11→17:37)
[2019-07-02 05:36] LABS: Troponin I 0.014 ng/mL (< 0.028)
--- NOTE | 2019-07-02 05:51 | HP ---
CHIEF COMPLAINT: Weakness and right-sided numbness. HISTORY OF PRESENT ILLNESS: Ms. Logan is a 64-year-old female with past medical history of hyperlipidemia, hypertension, cigarette smoker, COPD, chronic kidney disease, mitral valve prolapse, obesity, gastroesophageal reflux disease, inflammatory bowel disease, among others, presents to the emergency room with generalized weakness and right-sided numbness that started early this morning. She woke up and she started having numbness in her right arm, then it spread down to the right leg. Workup in the emergency room: The patient had elevated alcohol level more than 90. A CT of the brain, no acute finding. Urine drug screen positive for opiates and benzos. The patient is being admitted to hospital for further management. PAST MEDICAL HISTORY: As mentioned above in the history of present illness. PAST SURGICAL HISTORY: 1. Cholecystectomy. 2. Hysterectomy. 3. Orthopedic surgery. 4. Spinal surgery. 5. Cardiac cath. 6. Bilateral cataracts surgery. 7. Bladder surgery. PAST PSYCHIATRIC HISTORY: 1. Anxiety. 2. Depression. SOCIAL HISTORY: She drinks socially, and she smokes cigarettes. FAMILY HISTORY: Reviewed and noncontributory. ALLERGIES: ALLERGIC TO CLINDAMYCIN, METFORMIN, NAPROSYN, SULFA, AND TRAMADOL. HOME MEDICATIONS: Please see home medication reconciliation form for updated medications. REVIEW OF SYSTEMS: Review of 14 systems negative except what is mentioned in the history of present illness. PHYSICAL EXAMINATION: GENERAL: The patient is awake, alert, does not appear to be in acute distress. VITAL SIGNS: Blood pressure is 140/80, pulse is 18, temperature is 98.2, pulse oximetry is 97%. HEAD AND NECK: Normocephalic, atraumatic. Neck is supple. No JVD. CHEST: Fair bilateral entry. HEART: S1, S2. Regular. ABDOMEN: Soft, nontender. Bowel sounds present. NEUROLOGIC: Awake, alert, and oriented x3. No focal deficits. PSYCHIATRY: Anxious. EXTREMITIES: No clubbing, no cyanosis. LABORATORY DATA: Sodium 135, BUN 30, creatinine 2.0. WBC 6.6, hemoglobin 11.2. CT of the brain as mentioned above in the history of present illness. ASSESSMENT: 1. Generalized weakness. 2. Right-sided numbness/tingling. 3. Elevated alcohol level. 4. Chronic obstructive pulmonary disease. 5. Chronic kidney disease. PLAN: 1. Admit. 2. Tele monitor. 3. Frequent neuro checks. 4. IV fluid hydration. 5. MRI of the brain. 6. Reconcile home medications. 7. DVT prophylaxis appropriate. 8. Expected length of stay at least 1 midnight if patient is stable and further workup negative. Job ID: [id number]
[2019-07-02] MEDS: Folic Acid 1 MG TAB PO SCH (08:34)
[2019-07-02] MEDS: Escitalopram Oxalate 20 mg Tablet PO SCH (08:34)
[2019-07-02] MEDS: Montelukast Sodium 10 mg Tablet PO SCH (08:34)
[2019-07-02] MEDS: Oxybutynin 5 MG TAB PO SCH ×2 (08:34→20:23)
[2019-07-02] MEDS: Aspirin 325 mg Enteric Coated Tablet PO SCH (08:34)
[2019-07-02] MEDS: Heparin 5,000 UNITS/ML VIAL SC SCH ×2 (08:38→20:23)
[2019-07-02] MEDS ORDERED: FLU VACC TS2019-20(65YR UP)/PF 180 MCG/0.5 ML SYRINGE IM ONE (09:00)
[2019-07-02] MEDS ORDERED: Prevnar 13-Val Conj/PF 0.5 ML SYRINGE IM ONE (09:00)
[2019-07-02] MEDS ORDERED: Non-Formulary Item 1 EACH (Budesonide [Pulmicort Flexhaler] 2 PUFF) INH SCH (09:00)
[2019-07-02] MEDS ORDERED: Famotidine/PF 20 mg/2ml Vial SLOW IVP SCH (09:00)
[2019-07-02] MEDS ORDERED: Lorazepam 2 MG/ML VIAL SLOW IVP SCH (10:00)
--- NOTE | 2019-07-02 11:18 | PDOC.HOSPP ---
- Subjective Encounter Date: 07/02/19 Encounter Time: 10:00 Subjective: c/o right sided parasthesias (numbness to entire right extremities and right half of face) is moving all extremities, is right handed no trouble swallowing or seeing - Objective Vital Signs & Weight: Vital Signs (12 hours) Temp Pulse Resp BP Pulse Ox 07/02/19 07:14 98.7 F 13 170/87 H 98 07/02/19 01:54 97.7 F 83 16 157/74 H 96 Weight Weight 157 lb 4.8 oz I&O: 07/01/19 07/02/19 07/03/19 06:59 06:59 06:59 Intake Total 346 301 Output Total 350 700 Balance -4 -399 Result Diagrams: 07/02/19 01:45 07/02/19 01:45 Hospitalist ROS - Medication Medications: Active Medications Generic Name Dose Route Start Last Admin Trade Name Freq PRN Reason Stop Dose Admin Aspirin 325 mg 07/02/19 09:00 07/02/19 08:34 Ecotrin PO 325 mg DAILY GUILLE Administration Escitalopram Oxalate 20 mg 07/02/19 09:00 07/02/19 08:34 Lexapro PO 20 mg DAILY GUILLE Administration Folic Acid 1 mg 07/02/19 09:00 07/02/19 08:34 Folvite PO 1 mg DAILY GUILLE Administration Heparin Sodium (Porcine) 5,000 units 07/02/19 09:00 07/02/19 08:38 Heparin SC 5,000 units BID GUILLE Administration Sodium Chloride 1,000 mls @ 75 mls/hr 07/02/19 00:45 07/02/19 04:11 Normal Saline 0.9% IV 1,000 mls .[id number] GUILLE Administration Lorazepam 1 mg 07/02/19 10:00 07/02/19 10:55 Ativan SLOW IVP 1 mg WILLCALL GUILLE Administration Metoprolol Succinate 50 mg 07/02/19 09:00 07/02/19 08:34 Toprol Xl PO 50 mg DAILY GUILLE Administration Montelukast Sodium 10 mg 07/02/19 09:00 07/02/19 08:34 Singulair PO 10 mg DAILY GUILLE Administration Oxybutynin Chloride 10 mg 07/02/19 09:00 07/02/19 08:34 Ditropan PO 10 mg BID GUILLE Administration Pantoprazole Sodium 40 mg 07/02/19 09:00 07/02/19 08:35 Protonix PO 40 mg DAILY GUILLE Administration Sodium Chloride 10 ml 07/02/19 09:00 07/02/19 08:33 Flush - Normal Saline IVF Not Given Q12HR GUILLE - Exam General Appearance: NAD, awake alert Eye: PERRL, anicteric sclera ENT: no oropharyngeal lesions, moist mucosa Neck: supple, no JVD Heart: RRR, no murmur Respiratory: no wheezes, no rales Gastrointestinal: soft, non-tender, non-distended, normal bowel sounds Extremities: no cyanosis, no edema Neurological: cranial nerve grossly intact Neurological - other findings: no motor deficits Hosp A/P (1) TIA (transient ischemic attack) Code(s): G45.9 - TRANSIENT CEREBRAL ISCHEMIC ATTACK, UNSPECIFIED Status: Acute (2) CKD (chronic kidney disease) stage 3, GFR 30-59 ml/min Status: Chronic (3) COPD (chronic obstructive pulmonary disease) Status: Chronic Qualifiers: COPD type: chronic bronchitis (4) Dyslipidemia Code(s): E78.5 - HYPERLIPIDEMIA, UNSPECIFIED Status: Chronic (5) GERD (gastroesophageal reflux disease) Code(s): K21.9 - GASTRO-ESOPHAGEAL REFLUX DISEASE WITHOUT ESOPHAGITIS Status: Chronic Qualifiers: Esophagitis presence: esophagitis presence not specified Qualified Code(s) : K21.9 - Gastro-esophageal reflux disease without esophagitis (6) Generalized anxiety disorder Code(s): F41.1 - GENERALIZED ANXIETY DISORDER Status: Chronic (7) Hypertension Code(s): I10 - ESSENTIAL (PRIMARY) HYPERTENSION Status: Chronic Qualifiers: Hypertension type: essential hypertension Qualified Code(s): I10 - Essential (primary) hypertension (8) Polypharmacy Code(s): Z79.899 - 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
--- NOTE | 2019-07-02 11:42 | MRI ---
MRI brain noncontrast HISTORY: Right-sided weakness. COMPARISON: 01/17/2019. FINDINGS: Within the posterior left zeeshan, and oval 0.7 cm focus of restricted diffusion shows corresp onding defect on the ADC mapping images. A smaller but 0.2 cm similar in appearance tiny focus of restricted diffusion within the genu of the left internal capsule is also present. Mild diffuse cortical atrophy and chronic ischemic small vessel disease are again demonstrated. There is no mass effect or shift of midline structures. IMPRESSION: Small acute left pontine infarct. Tiny acute left internal capsule infarct.
[2019-07-02] MEDS: Nicotine 14 MG PATCH TD SCH (12:32)
[2019-07-02] MEDS: HYDROcodone/Acetaminophen 10/325 mg Tablet PO PRN ×2 (16:38→22:56)
[2019-07-02] MEDS ORDERED: Budesonide [Pulmicort Flexhaler] INH SCH (18:30)
[2019-07-02] MEDS: Mometasone 200 MCG HFA INHALER INH SCH (19:14)
[2019-07-02] MEDS: Atorvastatin Calcium 40 MG TAB PO SCH (20:23)
[2019-07-02] MEDS: Ezetimibe 10 MG TAB PO SCH (20:23)
[2019-07-02] MEDS ORDERED: SIMVASTATIN PO SCH (21:00)
[2019-07-02] MEDS ORDERED: Atorvastatin Calcium 20 MG TAB PO SCH (21:00)
[2019-07-02] MEDS ORDERED: EZETIMIBE PO SCH (21:00)
[2019-07-02] MEDS ORDERED: [UNRECOGNIZED DRUG - OTHER] PO SCH (21:00)
[2019-07-03] MEDS ORDERED: Melatonin 3 MG TAB PO PRN (00:46)
[2019-07-03] MEDS: Sodium Chloride 0.9% 1,000 ML IV SCH ×2 (06:11→22:07)
[2019-07-03] MEDS: Mometasone 200 MCG HFA INHALER INH SCH ×2 (07:30→18:45)
[2019-07-03] MEDS: Nicotine 14 MG PATCH TD SCH (08:53)
[2019-07-03] MEDS: Escitalopram Oxalate 20 mg Tablet PO SCH (08:54)
[2019-07-03] MEDS: Folic Acid 1 MG TAB PO SCH (08:54)
[2019-07-03] MEDS: Aspirin 325 mg Enteric Coated Tablet PO SCH (08:54)
[2019-07-03] MEDS: Heparin 5,000 UNITS/ML VIAL SC SCH ×2 (08:55→22:07)
[2019-07-03] MEDS: HYDROcodone/Acetaminophen 10/325 mg Tablet PO PRN ×3 (08:55→22:18)
[2019-07-03] MEDS: Oxybutynin 5 MG TAB PO SCH ×2 (08:55→22:07)
[2019-07-03] MEDS: Montelukast Sodium 10 mg Tablet PO SCH (08:55)
[2019-07-03] MEDS ORDERED: Iopamidol 370 76% 100 ML VIAL ONE (13:41)
--- NOTE | 2019-07-03 14:25 | PDOC.HOSPP ---
- Subjective Encounter Date: 07/03/19 Subjective: Persistent Rt sided numbness and facial droop - Objective Vital Signs & Weight: Vital Signs (12 hours) Temp Pulse Pulse Pulse Resp BP BP 07/03/19 11:16 98.4 F 71 20 07/03/19 09:23 83 81 148/75 H 152/67 H 07/03/19 07:53 98.7 F 75 16 07/03/19 04:44 98.8 F 82 18 BP Pulse Ox 07/03/19 11:16 111/62 98 07/03/19 09:23 07/03/19 07:53 181/89 H 95 07/03/19 04:44 174/122 H 100 Weight Admit Weight 157 lb 4.8 oz Weight 157 lb 4.8 oz I&O: 07/02/19 07/03/19 07/04/19 06:59 06:59 06:59 Intake Total 346 2326 600 Output Total 350 2400 700 Balance -4 -74 -100 Result Diagrams: 07/02/19 01:45 07/02/19 01:45 Hospitalist ROS - Medication Medications: Active Medications Generic Name Dose Route Start Last Admin Trade Name Freq PRN Reason Stop Dose Admin Hydrocodone Bitart/Acetaminophen 1 tab 07/02/19 15:58 07/03/19 08:55 [place] 10/325 PO 1 tab Q6H PRN Administration Pain 4-6 Atorvastatin Calcium 40 mg 07/02/19 21:00 07/02/19 20:23 Lipitor PO 40 mg HS GUILLE Administration Ezetimibe 10 mg 07/02/19 21:00 07/02/19 20:23 Zetia PO 10 mg HS GUILLE Administration Escitalopram Oxalate 20 mg 07/02/19 09:00 07/03/19 08:54 Lexapro PO 20 mg DAILY GUILLE Administration Folic Acid 1 mg 07/02/19 09:00 07/03/19 08:54 Folvite PO 1 mg DAILY GUILLE Administration Heparin Sodium (Porcine) 5,000 units 07/02/19 09:00 07/03/19 08:55 Heparin SC 5,000 units BID GUILLE Administration Sodium Chloride 1,000 mls @ 75 mls/hr 07/02/19 00:45 07/03/19 06:11 Normal Saline 0.9% IV 1,000 mls .[id number] GUILLE Administration Lorazepam 1 mg 07/02/19 10:00 07/02/19 10:55 Ativan SLOW IVP 1 mg WILLCALL GUILLE Administration Metoprolol Succinate 50 mg 07/02/19 09:00 07/03/19 08:54 Toprol Xl PO 50 mg DAILY GUILLE Administration Mometasone Furoate 1 puff 07/02/19 18:30 07/03/19 07:30 Asmanex Hfa 200 Mcg INH 1 puff BID-RT GUILLE Administration Montelukast Sodium 10 mg 07/02/19 09:00 07/03/19 08:55 Singulair PO 10 mg DAILY GUILLE Administration Nicotine 14 mg 07/02/19 08:00 07/03/19 08:53 Nicoderm Patch TD 14 mg Q24HR GUILLE Administration Oxybutynin Chloride 10 mg 07/02/19 09:00 07/03/19 08:55 Ditropan PO 10 mg BID GUILLE Administration Pantoprazole Sodium 40 mg 07/02/19 09:00 07/03/19 08:55 Protonix PO 40 mg DAILY GUILLE Administration Sodium Chloride 10 ml 07/02/19 09:00 07/03/19 08:54 Flush - Normal Saline IVF Not Given Q12HR GUILLE - Exam General Appearance: NAD, awake alert ENT: normocephalic atraumatic Neck: supple, no JVD Heart: RRR, no murmur, no gallops, no rubs, normal peripheral pulses Respiratory: CTAB, no wheezes, no rales, no ronchi, normal chest expansion Gastrointestinal: soft, non-tender, non-distended, normal bowel sounds Hosp A/P (1) Acute CVA (cerebrovascular accident) Code(s): I63.9 - CEREBRAL INFARCTION, UNSPECIFIED Status: Acute (2) CKD (chronic kidney disease) stage 3, GFR 30-59 ml/min Status: Chronic (3) COPD (chronic obstructive pulmonary disease) Status: Chronic Qualifiers: COPD type: chronic bronchitis (4) Hypertension Code(s): I10 - ESSENTIAL (PRIMARY) HYPERTENSION Status: Chronic Qualifiers: Hypertension type: essential hypertension Qualified Code(s): I10 - Essential (primary) hypertension - Plan MRI shows acute CVA NIH Stroke scale 2 Start aspirin 81 mg po daily and plavix 75 mg po daily SBP is at 180 range. We will allow permissive hypertension. Target blood sugar target 160 Check carotid duplex studies Echo was done recently PT,OT,ST evaluation SCD for dvt ppx
--- NOTE | 2019-07-03 14:36 | ULT ---
BILATERAL CAROTID DUPLEX ULTRASOUND: HISTORY: CVA TECHNIQUE: Grayscale, color-flow and spectral Doppler ultrasound imaging of the extracranial carotid artery syst ems was performed bilaterally. FINDINGS: There is plaque formation on both sides. There is suggestion of occlusive plaque in the distal right common carotid artery. The distal right ICA is also not visualized. The peak systolic velocity in the right ICA measures 91 cm/s with an end-diastolic velocity of 9 cm/s and a systolic ratio of 1.2. The peak systolic velocity in the left ICA measures 64 cm/s with an end-diastolic velocity of 16 cm/s and a systolic ratio of 0.94. Flow in both vertebral arteries remains antegrade. IMPRESSION: There is suggestion of occlusive plaque in the distal right common carotid artery. Further evaluation with CT neck angiography is recommended.
[2019-07-03 17:45] LABS: ALT (SGPT) 9 U/L (8-55); AST (SGOT) 10 U/L (5-34); Albumin 3.2 g/dL (3.4-4.8); Alkaline Phosphatase 90 U/L (40-110); Anion Gap 8 mmol/L (10-20); BUN (Urea Nitrogen) 24 mg/dL (9.8-20.1); Bilirubin, Total 0.3 mg/dL (0.2-1.2); Calc. Creatinine Clearance 39 mL/min (70-130); Calcium 8.3 mg/dL (7.8-10.44); Carbon Dioxide 25 mmol/L (23-31); Chloride 106 mmol/L (98-107); Estimated GFR-MDRD 32; Globulin 2.6 g/dL (2.4-3.5); Glucose 137 mg/dL (80-115); Protein, Total 5.8 g/dL (6.0-8.3); Sodium 135 mmol/L (136-145)
--- NOTE | 2019-07-03 19:20 | CT ---
CTA HEAD WITH AND WITHOUT CONTRAST CTA NECK WITH AND WITHOUT CONTRAST AND UTLIZATION OF 3D REFORMATTED IMAGING: Indication: Acute CVA with concern for right common carotid artery stenosis. Comparison: Carotid doppler ultrasound 07-03-2019, noncontrast MRI brain 07-02-2019. FINDINGS: CTA NECK: The brachiocephalic artery is widely patent off the aortic arch. There are moderate calcifications in volving the brachiocephalic artery origin. The right subclavian artery is patent. There is moderate c alcification at the origin of the right vertebral body inducing moderate stenosis. The right common carotid artery along its mid to distal aspect demonstrates 40% luminal caliber narro wing. The carotid bulb is patent. There is 40% luminal narrowing involving the proximal right ICA. Left common carotid artery origin demonstrates some mild atherosclerotic calcification. Left common c arotid artery is patent. There is moderate calcification involving the left carotid bulb. There is ap proximately 40% luminal caliber narrowing involving the proximal left ICA. There is mild narrowing involving the origin of the left vertebral artery. Left subclavian artery is patent. The [place] lenses have been replaced. The parotid and submandibular gland are normal appearing. The t hyroid gland is normal appearing. There are nonspecific ground-glass opacities involving the lung api danielle which can be seen with subsegmental atelectasis. A pneumonitis cannot be entirely excluded. No definite enlarged lymph nodes are evident. Visualized aerodigestive tract appears within normal li mits. No acute osseous abnormality is evident. There is scattered degenerative and osteoarthritic change. CTA HEAD WITH AND WITHOUT CONTRAST: There is generalized cerebral atrophy. There is moderate chronic small vessel ischemic change. Left p aramedian zeeshan lacunar infarct is seen on Image 10 of Series 2. No intracranial hemorrhage is evident . Mastoid air cells are clear. Paranasal sinuses are clear. Skull is intact. No definite abnormal region of enhancement is demonstrated. No hemodynamically significant stenosis, occlusion or aneurysmal formation is demonstrated. Moderate calcifications involving the carneous carotids bilaterally, limiting evaluation of the luminal calibe r within these segments. IMPRESSION: 1. 40% luminal caliber narrowing involving the mid to distal right CCA. 2. 40% luminal caliber narrowing involving the proximal left and right ICAs. 3. Moderate narrowing involving the origin of the right vertebral artery. Mild narrowing involving th e origin of the left vertebral artery. 4. Left paramedian zeeshan, acute lacunar infarct. POS: BH
[2019-07-03] MEDS: Atorvastatin Calcium 40 MG TAB PO SCH (22:07)
[2019-07-03] MEDS: Ezetimibe 10 MG TAB PO SCH (22:07)
[2019-07-04 06:04] LABS: Hemoglobin A1c 4.9 % (4.0-6.0)
[2019-07-04 06:21] LABS: Cardiac Risk 2.6 (Less than 4.5)
[2019-07-04] MEDS: Mometasone 200 MCG HFA INHALER INH SCH ×2 (07:38→18:55)
[2019-07-04] MEDS: Aspirin 81 mg Enteric Coated Tablet PO SCH (08:54)
[2019-07-04] MEDS: Oxybutynin 5 MG TAB PO SCH ×2 (08:54→20:49)
[2019-07-04] MEDS: Nicotine 14 MG PATCH TD SCH (08:54)
[2019-07-04] MEDS: Escitalopram Oxalate 20 mg Tablet PO SCH (08:55)
[2019-07-04] MEDS: Folic Acid 1 MG TAB PO SCH (08:55)
[2019-07-04] MEDS: Montelukast Sodium 10 mg Tablet PO SCH (08:55)
[2019-07-04] MEDS: Clopidogrel Bisulfate 75 MG TAB PO SCH (08:55)
[2019-07-04] MEDS: Heparin 5,000 UNITS/ML VIAL SC SCH ×2 (08:56→20:49)
[2019-07-04] MEDS: HYDROcodone/Acetaminophen 10/325 mg Tablet PO PRN ×3 (08:56→20:59)
[2019-07-04] MEDS ORDERED: HYDROcodone/Acetaminophen 10/325 mg Tablet PO PRN ×2 (09:45→10:45)
[2019-07-04] MEDS: Sodium Chloride 0.9% 1,000 ML IV SCH (10:22)
[2019-07-04] MEDS ORDERED: Zolpidem Tartrate 5 MG TAB PO PRN (10:44)
--- NOTE | 2019-07-04 18:48 | CON ---
DATE OF CONSULTATION: 07/04/2019 CONSULTING PHYSICIAN: Hospitalist Service. IMPRESSION: A small vessel stroke resulting in left-sided numbness and minimal weakness with involvement of the left zeeshan and internal capsule. PLAN: Continue antiplatelet therapy and statin. HISTORY OF PRESENT ILLNESS: Ms. Logan is a 64-year-old woman with past history of hypertension. She presents to the emergency room with complaints of right face, arm, and leg numbness. It might have made a bit difficult to walk secondary to this. Initial CT scan of the brain did not show any evidence of a bleed. Followup MRI of the brain showed 2 punctate areas of infarct involving the left internal capsule and zeeshan. Her prior echocardiogram done a few months ago showed ejection fraction of 55% to 60%. A CT angiogram showed around 40% stenosis of both internal carotid arteries. Her lab work was otherwise only notable for some renal insufficiency. PAST MEDICAL HISTORY: Hypertension. ALLERGIES: CEPHALOSPORINS, MELOXICAM, METFORMIN AMONG OTHERS. SOCIAL HISTORY: No tobacco or alcohol reported. FAMILY HISTORY: Noncontributory. REVIEW OF SYSTEMS: Ten-system review of systems is otherwise negative. PHYSICAL EXAMINATION: VITAL SIGNS: Blood pressure 196/102, which improved to 133/64, pulse of 68. She is afebrile. HEENT: Pupils are equal and reactive. Conjunctivae are clear. Oropharynx clear. NECK: Supple. No lymphadenopathy. EXTREMITIES: No cyanosis. NEUROLOGIC: She is alert and cooperative. Her speech is fluent and clear. Her cranial nerves were intact other than diminished light touch around the face. Motor exam showed symmetric e learning developer strength without fix or drift. She is able to walk independently. She had some sensory deficits in her right distal extremities. LABORATORY STUDIES: Reviewed. Her cholesterol ratio was 2.6. SUMMARY: A 64-year-old woman with history of hypertension and two areas of infarctions involving the posterior circulation that were lacunar in appearance, likely secondary to primary thrombosis with current treatment. PLAN: She will be stable for discharge shortly. Job ID: [id number]
[2019-07-04] MEDS: Atorvastatin Calcium 40 MG TAB PO SCH (20:48)
[2019-07-04] MEDS: Ezetimibe 10 MG TAB PO SCH (20:49)
[2019-07-04] MEDS: hydrOXYzine 25 MG TAB PO SCH (20:49)
--- NOTE | 2019-07-04 21:18 | PDOC.HOSPP ---
- Subjective Encounter Date: 07/04/19 - Objective Vital Signs & Weight: Vital Signs (12 hours) Temp Pulse Pulse Pulse Resp BP BP 07/04/19 20:00 98.9 F 67 20 07/04/19 18:55 77 16 07/04/19 15:05 98.7 F 75 16 07/04/19 12:30 67 66 152/76 H 140/74 07/04/19 11:28 97.6 F 68 16 07/04/19 10:24 BP BP Pulse Ox 07/04/19 20:00 152/75 H 98 07/04/19 18:55 97 07/04/19 15:05 133/64 98 07/04/19 12:30 07/04/19 11:28 131/70 94 L 07/04/19 10:24 148/72 H Weight Admit Weight 157 lb 4.8 oz Weight 157 lb 4.8 oz I&O: 07/03/19 07/04/19 07/05/19 06:59 06:59 06:59 Intake Total 2326 600 700 Output Total 2400 875 900 Balance -74 -275 -200 Result Diagrams: 07/02/19 01:45 07/03/19 17:18 Hospitalist ROS - Medication Medications: Active Medications Generic Name Dose Route Start Last Admin Trade Name Freq PRN Reason Stop Dose Admin Hydrocodone Bitart/Acetaminophen 2 tab 07/04/19 10:40 07/04/19 20:59 [place] 10/325 PO 2 tab Q6HR PRN Administration Severe Pain (7-10) Aspirin 81 mg 07/04/19 09:00 07/04/19 08:54 Ecotrin PO 81 mg DAILY GUILLE Administration Atorvastatin Calcium 40 mg 07/02/19 21:00 07/04/19 20:48 Lipitor PO 40 mg HS GUILLE Administration Clopidogrel Bisulfate 75 mg 07/04/19 09:00 07/04/19 08:55 Plavix PO 75 mg DAILY GUILLE Administration Ezetimibe 10 mg 07/02/19 21:00 07/04/19 20:49 Zetia PO 10 mg HS GUILLE Administration Escitalopram Oxalate 20 mg 07/02/19 09:00 07/04/19 08:55 Lexapro PO 20 mg DAILY GUILLE Administration Folic Acid 1 mg 07/02/19 09:00 07/04/19 08:55 Folvite PO 1 mg DAILY GUILLE Administration Heparin Sodium (Porcine) 5,000 units 07/02/19 09:00 07/04/19 20:49 Heparin SC 5,000 units BID GUILLE Administration Hydroxyzine HCl 50 mg 07/04/19 21:00 07/04/19 20:49 Atarax PO 50 mg BID GUILLE Administration Lorazepam 1 mg 07/02/19 10:00 07/02/19 10:55 Ativan SLOW IVP 1 mg WILLCALL GUILLE Administration Metoprolol Succinate 50 mg 07/02/19 09:00 07/04/19 08:54 Toprol Xl PO 50 mg DAILY GUILLE Administration Mometasone Furoate 1 puff 07/02/19 18:30 07/04/19 18:55 Asmanex Hfa 200 Mcg INH 1 puff BID-RT GUILLE Administration Montelukast Sodium 10 mg 07/02/19 09:00 07/04/19 08:55 Singulair PO 10 mg DAILY GUILLE Administration Nicotine 14 mg 07/02/19 08:00 07/04/19 08:54 Nicoderm Patch TD 14 mg Q24HR GUILLE Administration Oxybutynin Chloride 10 mg 07/02/19 09:00 07/04/19 20:49 Ditropan PO 10 mg BID GUILLE Administration Pantoprazole Sodium 40 mg 07/02/19 09:00 07/04/19 08:55 Protonix PO 40 mg DAILY GUILLE Administration Sodium Chloride 10 ml 07/02/19 09:00 07/04/19 20:50 Flush - Normal Saline IVF 10 ml Q12HR GUILLE Administration - Exam General Appearance: awake alert ENT: normocephalic atraumatic Neck: supple, no JVD Heart: RRR, no murmur, no gallops, no rubs Respiratory: CTAB, no wheezes, no rales, no ronchi, normal chest expansion Gastrointestinal: soft, non-tender, non-distended, normal bowel sounds Hosp A/P (1) Acute CVA (cerebrovascular accident) Code(s): I63.9 - CEREBRAL INFARCTION, UNSPECIFIED Status: Acute (2) CKD (chronic kidney disease) stage 3, GFR 30-59 ml/min Status: Chronic (3) COPD (chronic obstructive pulmonary disease) Status: Chronic Qualifiers: COPD type: chronic bronchitis (4) Hypertension Code(s): I10 - ESSENTIAL (PRIMARY) HYPERTENSION Status: Chronic Qualifiers: Hypertension type: essential hypertension Qualified Code(s): I10 - Essential (primary) hypertension - Plan MRI shows acute CVA NIH Stroke scale 2 Start aspirin 81 mg po daily and plavix 75 mg po daily SBP is at 180 range. We will allow permissive hypertension. Target blood sugar target 160 Check carotid duplex studies Echo was done recently PT,OT,ST evaluation SCD for dvt ppx 07/03: The patient was seen and examined. She is still complaining of right-sided facial and body numbness and decreased sensation. Continue current management as above. Plan to discharge home with outpatient physical therapy tomorrow.
[2019-07-05] MEDS: HYDROcodone/Acetaminophen 10/325 mg Tablet PO PRN (06:03)
[2019-07-05] MEDS: Mometasone 200 MCG HFA INHALER INH SCH (07:01)
--- NOTE | 2019-07-05 07:57 | CON ---
DATE OF CONSULTATION: 07/04/2019 CONSULTING PHYSICIAN: Allyn Salazar MD REASON FOR CONSULTATION: Acute kidney injury. REASON FOR ADMISSION: Numbness. HISTORY OF PRESENT ILLNESS: A 64-year-old female with history of hyperlipidemia and hypertension, came to the hospital with above complaints and was even evaluated for CVA. Nephrology was consulted per patient's request to monitor renal function especially in the wake of contrast exposure. Her creatinine on admission was 2.06, now it is 1.6. She is feeling better. No chest pain or palpitation. PAST MEDICAL HISTORY: Positive for CKD, hyperlipidemia, hypertension, COPD, mitral valve prolapse, obesity, and GERD. PAST SURGICAL HISTORY: Cholecystectomy, hysterectomy, orthopedic surgery, spinal surgery, cardiac cath, cataract surgery, and breast surgery. HOME MEDICATIONS: Reviewed. ALLERGIES: TO SULFA, METFORMIN, NAPROXEN. SOCIAL HISTORY: No smoking, alcohol, or illicit drugs. FAMILY HISTORY: No history of kidney disease. REVIEW OF SYSTEMS: The following complete review of systems was negative, unless otherwise mentioned in the HPI or below: Constitutional: Weight loss or gain, ability to conduct usual activities. Skin: Rash, itching. Eyes: Double vision, pain. ENT/Mouth: Nose bleeding, neck stiffness, pain, tenderness. Cardiovascular: Palpitations, dyspnea on exertion, orthopnea. Respiratory: Shortness of breath, wheezing, cough, hemoptysis, fever or night sweats. Gastrointestinal: Poor appetite, abdominal pain, heartburn, nausea, vomiting, constipation, or diarrhea. Genitourinary: Urgency, frequency, dysuria, nocturia. Musculoskeletal: Pain, swelling. Neurologic/Psychiatric: Anxiety, depression. Allergy/Immunologic: Skin rash, bleeding tendency. PHYSICAL EXAMINATION: GENERAL: This is a well-built female, in no apparent distress. VITAL SIGNS: Temperature 98.6, pulse 68, respiratory rate 16, and blood pressure 130/70. HEENT: Atraumatic and normocephalic. Oral mucosa moist. NECK: Supple. CV: S1 and S2 heard. Rate and rhythm are regular. RESPIRATORY: Clear. GI: Abdomen is soft. MUSCULOSKELETAL: 1+ edema. DERMATOLOGIC: No skin rash. NEUROLOGY: Alert and awake. PSYCHIATRIC: Normal mood and affect. LABORATORY DATA: Hemoglobin is 11.6, potassium 4.0, BUN is 24, creatinine is 1.6. ASSESSMENT/PLAN: 1. Acute kidney injury on chronic kidney stage 3. We will monitor. 2. History of contrast exposure. 3. Edema. 4. Hypertension. 5. Anemia. 6. We will monitor renal function closely. Avoid nephrotoxins. Renally dose the medications. Job ID: [id number]
[2019-07-05] MEDS: Aspirin 81 mg Enteric Coated Tablet PO SCH (08:30)
[2019-07-05] MEDS: Folic Acid 1 MG TAB PO SCH (08:30)
[2019-07-05] MEDS: Clopidogrel Bisulfate 75 MG TAB PO SCH (08:30)
[2019-07-05] MEDS: hydrOXYzine 25 MG TAB PO SCH (08:31)
[2019-07-05] MEDS: Escitalopram Oxalate 20 mg Tablet PO SCH (08:31)
[2019-07-05] MEDS: Montelukast Sodium 10 mg Tablet PO SCH (08:31)
[2019-07-05] MEDS: Nicotine 14 MG PATCH TD SCH (08:32)
[2019-07-05] MEDS: Heparin 5,000 UNITS/ML VIAL SC SCH (08:33)
[2019-07-05] MEDS: Oxybutynin 5 MG TAB PO SCH (08:47)
[2019-07-05] MEDS ORDERED: Amlodipine 10 MG TAB PO SCH (09:00)
[2019-07-05 10:42] LABS: Anion Gap 12 mmol/L (10-20); BUN (Urea Nitrogen) 26 mg/dL (9.8-20.1); Calc. Creatinine Clearance 36 mL/min (70-130); Calcium 8.7 mg/dL (7.8-10.44); Carbon Dioxide 25 mmol/L (23-31); Chloride 105 mmol/L (98-107); Estimated GFR-MDRD 29; Glucose 117 mg/dL (80-115); Potassium 4.6 mmol/L (3.5-5.1); Sodium 137 mmol/L (136-145)
[2019-07-05 15:11] VITALS: BP 176/91; TEMP 97.9
--- NOTE | 2019-07-05 15:27 | DIS ---
DATE OF ADMISSION: 07/02/2019 DATE OF DISCHARGE: 07/05/2019 DISCHARGE DIAGNOSES: 1. Acute cerebrovascular accident. 2. Chronic kidney disease, stage 3. 3. Chronic obstructive pulmonary disease. 4. Hypertension. DISCHARGE MEDICATIONS: 1. Aspirin 325 mg orally daily. 2. Plavix 75 mg orally for 20 more days. 3. Norvasc 10 mg orally daily. 4. Atorvastatin 40 mg orally nightly. 5. Pulmicort inhaled twice daily. 6. Citalopram 20 mg orally daily. 7. Folic acid 1 mg orally daily. 8. [place] 10 one tablet q.6 hours p.r.n. for pain. 9. Hydroxyzine 50 mg orally twice daily. 10. DuoNeb q.4 hours as needed for dyspnea or wheezing. 11. Metoprolol succinate 50 mg orally daily. 12. Nicotine patch 14 mg transdermal daily. 13. Oxybutynin 5 mg orally twice daily. 14. Pantoprazole 40 mg orally daily. 15. Librium 20 mg orally twice daily. 16. Ezetimibe 10 mg orally nightly. HISTORY OF PRESENT ILLNESS AND HOSPITAL COURSE: The patient is a 64-year-old female with past medical history of hyperlipidemia, hypertension, chronic smoking, chronic kidney disease, and COPD, who presented to the hospital with right-sided facial and body numbness. MRI of the brain showed small acute left pontine infarct. No tPA was given as the patient presented beyond the recommended window. CT angiogram of the head and neck was performed showing 40% luminal caliber narrowing involving the distal right CCA at the proximal left and right ICAs. The patient was managed with dual antiplatelets due to NIH stroke scale less than 4. We will continue those for 21 days and then continue with aspirin thereafter. High-intensity statins were also initiated. Permissive hypertension was allowed for the first 48 hours. The patient did exhibit some signs of imbalance, so outpatient physical therapy has been arranged. Recent echocardiogram was unremarkable, so the study was not repeated. Outpatient followup with PCP was recommended. Job ID: [id number]
--- NOTE | 2019-07-05 17:22 | PRG ---
DATE OF SERVICE: 07/05/2019 SUBJECTIVE: Patient was seen and examined at bedside and overnight events noted. Patient denies any shortness of breath or chest pain or palpitation. No history of nausea or vomiting or diarrhea or fever or chills or cramps. OBJECTIVE: GENERAL: This is a well-built female, in no apparent distress. VITAL SIGNS: Temperature 98.1. Heart rate 62. Respiratory rate 18. Blood pressure 150/84. HEENT: Atraumatic, normocephalic. Oral mucosa is moist NECK: Supple. CARDIOVASCULAR: S1, S2 heard. Rate and rhythm regular. RESPIRATORY: Clear to auscultation. GASTROINTESTINAL: Abdomen is soft. MUSCULOSKELETAL: No tenderness. No edema. DERMATOLOGIC: No skin rash. NEUROLOGIC: Alert and awake and oriented X3. No focal neurologic deficits. Moving all the extremities. PSYCHIATRIC: Mood and affect normal. LABORATORY DATA: Potassium 4.6, BUN is 26, and creatinine is 1.7. ASSESSMENT AND PLAN: 1. Acute kidney injury on chronic kidney disease, stage 3. Labs with fluctuation. 2. History of contrast exposure. Stable labs. 3. Edema. 4. Hypertension. 5. Anemia. Labs are stable. Follow up with Dr. Pride in a week. Job ID: [id number]
--- NOTE | 2019-07-08 09:50 | EKG ---
Test Reason : Blood Pressure : / mmHG Vent. Rate : 070 BPM Atrial Rate : 070 BPM P-R Int : 226 ms QRS Dur : 088 ms QT Int : 424 ms P-R-T Axes : 058 018 038 degrees QTc Int : 457 ms Sinus rhythm with 1st degree A-V block Otherwise normal ECG Confirmed by ARISTEO FREEMAN ([id number]), editorial manager MINNA MONTALVO ([id number]) on 07/08/2019 9:49:45 AM Referred By: Confirmed By:ARISTEO FREEMAN
== END 2019-07-05 15:54 | disposition home or self-care (01) | DRG 65 ==
LOC: ERS 22:00 → 2SE 07-02 00:34 → OBSVTOIN 07-02 11:52
PROVIDERS: ADMIT Internal Medicine; ATTEND Internal Medicine
DX: I63.81 Other cerebral infarction due to occlusion or stenosis of small artery (principal); N17.9 Acute kidney failure, unspecified; J44.9 Chronic obstructive pulmonary disease, unspecified; I12.9 Hypertensive chronic kidney disease with stage 1 through stage 4 chronic kidney disease, or unspecified chronic kidney disease; N18.3 Chronic kidney disease, stage 3 (moderate); R20.0 Anesthesia of skin; E78.5 Hyperlipidemia, unspecified; F17.210 Nicotine dependence, cigarettes, uncomplicated; K21.9 Gastro-esophageal reflux disease without esophagitis; F32.9 Major depressive disorder, single episode, unspecified; R20.2 Paresthesia of skin; F41.1 Generalized anxiety disorder; I34.1 Nonrheumatic mitral (valve) prolapse; R40.2362 Coma scale, best motor response, obeys commands, at arrival to emergency department; R40.2142 Coma scale, eyes open, spontaneous, at arrival to emergency department; R40.2252 Coma scale, best verbal response, oriented, at arrival to emergency department; F10.10 Alcohol abuse, uncomplicated; Y90.4 Blood alcohol level of 80-99 mg/100 ml; R29.810 Facial weakness; D64.9 Anemia, unspecified; Z88.5 Allergy status to narcotic agent; Z98.890 Other specified postprocedural states; Z90.49 Acquired absence of other specified parts of digestive tract; Z98.41 Cataract extraction status, right eye; Z79.899 Other long term (current) drug therapy; Z88.1 Allergy status to other antibiotic agents; Z90.710 Acquired absence of both cervix and uterus; Z98.42 Cataract extraction status, left eye; Z88.2 Allergy status to sulfonamides; Z88.8 Allergy status to other drugs, medicaments and biological substances; E66.9 Obesity, unspecified; Z68.27 Body mass index [BMI] 27.0-27.9, adult; E78.00 Pure hypercholesterolemia, unspecified; I65.29 Occlusion and stenosis of unspecified carotid artery
CPT/HCPCS: 36415; 70450; 70496; 70498; 70551; 80048; 80053; 80061; 80306; 80307; 81003; 81015; 82553; 83036; 83605; 84484; 85025; 90471; 90662; 90670; 93005; 93306; 93880; 96360; 96361; G0008; G0009; J1644; J2060; Q9967

== ENCOUNTER 2019-07-18 11:12 | Emergency (ER) | payer MEDICARE, OTHER ==
[2019-07-18] MEDS ORDERED: Ondansetron PF 4 MG/2 ML Vial ONE (11:30)
[2019-07-18] MEDS ORDERED: Dexamethasone 10 MG/ML VIAL ONE ×2 (11:32→11:33)
[2019-07-18] MEDS ORDERED: Lorazepam 2 MG/ML VIAL ONE (11:32)
[2019-07-18] MEDS ORDERED: Fentanyl 100 MCG/2 ML VIAL ONE (11:32)
[2019-07-18 12:09] LABS: Bacteria/HPF 3+ HPF (None Seen); Bilirubin Negative (Negative); Blood, Urine 1+ (Negative); Clarity Extra Turbid (Clear); Glucose, Urine (Dipstick) Normal (Negative); Leukocyte 500 Leu/uL (Negative); Nitrite Negative (Negative); Protein, Urine (Dipstick) 50 mg/dL (Neg-Trace); Squamous Epithelial None Seen HPF (0-3); Urobilinogen Normal mg/dL (Less than 2); WBC/HPF Greater than 50 HPF (0-3)
== END 2019-07-18 12:53 | disposition home or self-care (01) ==
LOC: ERS 11:12
DX: N30.00 Acute cystitis without hematuria (principal); G89.29 Other chronic pain; M54.5 Low back pain; K21.9 Gastro-esophageal reflux disease without esophagitis; J45.909 Unspecified asthma, uncomplicated; I10 Essential (primary) hypertension; E78.00 Pure hypercholesterolemia, unspecified; M19.90 Unspecified osteoarthritis, unspecified site; J44.9 Chronic obstructive pulmonary disease, unspecified; F32.9 Major depressive disorder, single episode, unspecified; F41.9 Anxiety disorder, unspecified; F17.210 Nicotine dependence, cigarettes, uncomplicated; N28.9 Disorder of kidney and ureter, unspecified; Z79.82 Long term (current) use of aspirin; Z79.51 Long term (current) use of inhaled steroids; Z79.899 Other long term (current) drug therapy
CPT/HCPCS: 51701; 81003; 81015; 87077; 87086; 96374; 96375; A4353; J1100; J2060; J2405; J3010

== ENCOUNTER 2019-10-07 14:48 | Emergency (ER) | payer MEDICARE, OTHER ==
[2019-10-07] MEDS ORDERED: Fentanyl 100 MCG/2 ML VIAL ONE (15:29)
[2019-10-07 15:57] LABS: Bacteria/HPF None Seen HPF (None Seen); Bilirubin Negative (Negative); Blood, Urine 3+ (Negative); Clarity Extra Turbid (Clear); Glucose, Urine (Dipstick) Normal (Negative); Leukocyte 500 Leu/uL (Negative); Nitrite Negative (Negative); Protein, Urine (Dipstick) 50 mg/dL (Neg-Trace); RBC/HPF Greater than 50 HPF (0-3); Squamous Epithelial None Seen HPF (0-3); Urobilinogen Normal mg/dL (Less than 2); WBC/HPF Greater than 50 HPF (0-3)
[2019-10-07 16:12] LABS: #Basophils 0.1 thou/uL (0.0-0.2); #Eosinphils 0.4 thou/uL (0.0-0.7); #Lymphocytes 1.9 thou/uL (1.20-3.40); #Monocytes 0.6 thou/uL (0.11-0.59); #Neutrophils 4.1 thou/uL (1.40-6.50); %Basophils 1.1 % (0.0-1.0); %Eosinophils 5.2 % (0.0-10.0); %Lymphocytes 26.9 % (21.0-51.0); %Monocytes 8.9 % (0.0-10.0); %Neutrophils 57.9 % (42.0-75.0); Mean Corpuscular HGB CONC 32.9 g/dL (32.0-36.0); Mean Corpuscular Hemoglobin 29.2 pg (27.0-31.0); Mean Corpuscular Volume 88.9 fL (78.0-98.0); Mean Platelet Volume 8.3 fL (7.4-10.4); Platelet Count 213 thou/uL (130-400); RBC Distribution Width 12.1 % (11.5-14.5); Red Blood Cell (RBC) Count 3.41 mill/uL (4.20-5.40); White Blood Cell (WBC) Count 7.1 thou/uL (4.8-10.8)
[2019-10-07] MEDS ORDERED: cefTRIAXone\\ROCEPHIN 1 GM VIAL ONE (16:29)
[2019-10-07 16:34] LABS: ALT (SGPT) Less than 7 U/L (8-55); AST (SGOT) 11 U/L (5-34); Albumin 3.4 g/dL (3.4-4.8); Alkaline Phosphatase 102 U/L (40-110); Anion Gap 15 mmol/L (10-20); BUN (Urea Nitrogen) 38 mg/dL (9.8-20.1); Bilirubin, Total 0.2 mg/dL (0.2-1.2); Calc. Creatinine Clearance 0 mL/min (70-130); Calcium 8.7 mg/dL (7.8-10.44); Carbon Dioxide 20 mmol/L (23-31); Chloride 107 mmol/L (98-107); Estimated GFR-MDRD 23; Globulin 3.1 g/dL (2.4-3.5); Glucose 89 mg/dL (80-115); Potassium 3.8 mmol/L (3.5-5.1); Protein, Total 6.5 g/dL (6.0-8.3); Sodium 138 mmol/L (136-145)
--- NOTE | 2019-10-07 18:05 | CT ---
CT ABDOMEN AND PELVIS WITHOUT CONTRAST: 10/07/19 PROVIDED CLINICAL HISTORY: Back pain and blood in urine status post fall. FINDINGS: Comparison is made with the CT abdomen and pelvis dated 02/18/19. The visualized lung bases are free of significant opacity. There is persistent bilateral hydronephrosis and hydroureter with associated urothelial thickening. The degree of hydronephrosis is mild on the right and moderate on the left and appears similar to the prior examination. There is no evidence for urinary tract calculi. The urinary bladder is decompress ed though the wall appears thickened. The solid abdominal organs are suboptimally evaluated in the absence of IV contrast material but demo nstrates an otherwise unremarkable unenhanced CT appearance. Small gastric diverticulum is seen invol ving the gastric cardia. There is no bowel dilatation, additional inflammatory fat stranding or free air apparent. There is tr lisa free fluid present within the pelvic cul-de-sac. Conspicuous atherosclerotic vascular calcifications are noted. The osseous structures demonstrate no concerning lytic or blastic lesions. Lumbar spine degenerative changes are redemonstrated with grade I spondylolisthesis of L4 on L5 redemonstrated. Vertebral body heights are preserved. There is no evidence for fracture. IMPRESSION: 1. Bilateral hydronephrosis and hydroureter, left greater than right and appearing similar to th e prior examination. Urothelial thickening and urinary bladder wall thickening is suspicious for asso ciated cystitis and urinary tract infection. 2. Chronic findings as above. POS: [facility]
== END 2019-10-07 17:53 | disposition home or self-care (01) ==
LOC: ERS 14:48
DX: N30.00 Acute cystitis without hematuria (principal); K21.9 Gastro-esophageal reflux disease without esophagitis; E78.00 Pure hypercholesterolemia, unspecified; I10 Essential (primary) hypertension; J44.9 Chronic obstructive pulmonary disease, unspecified; F41.9 Anxiety disorder, unspecified; F32.9 Major depressive disorder, single episode, unspecified; F17.210 Nicotine dependence, cigarettes, uncomplicated; Z79.899 Other long term (current) drug therapy; Z79.82 Long term (current) use of aspirin; Z86.73 Personal history of transient ischemic attack (TIA), and cerebral infarction without residual deficits; Z79.51 Long term (current) use of inhaled steroids
CPT/HCPCS: 74176; 80053; 81003; 81015; 85025; 96365; 96375; J0696; J3010

== ENCOUNTER 2019-10-28 02:57 | Inpatient (IN) | payer MEDICARE, MEDICAID ==
[2019-10-28 03:36] LABS: #Basophils 0.1 thou/uL (0.0-0.2); #Eosinphils 0.5 thou/uL (0.0-0.7); #Lymphocytes 2.8 thou/uL (1.20-3.40); #Monocytes 1.1 thou/uL (0.11-0.59); #Neutrophils 3.7 thou/uL (1.40-6.50); %Basophils 1.2 % (0.0-1.0); %Eosinophils 5.6 % (0.0-10.0); %Lymphocytes 34.2 % (21.0-51.0); %Monocytes 13.6 % (0.0-10.0); %Neutrophils 45.3 % (42.0-75.0); Hemoglobin 10.1 g/dL (12.0-16.0); Mean Corpuscular HGB CONC 32.7 g/dL (32.0-36.0); Mean Corpuscular Hemoglobin 28.9 pg (27.0-31.0); Mean Corpuscular Volume 88.5 fL (78.0-98.0); Mean Platelet Volume 8.7 fL (7.4-10.4); Platelet Count 210 thou/uL (130-400); RBC Distribution Width 12.7 % (11.5-14.5); Red Blood Cell (RBC) Count 3.49 mill/uL (4.20-5.40); White Blood Cell (WBC) Count 8.1 thou/uL (4.8-10.8)
[2019-10-28 03:41] LABS: INR-International Normal Ratio 0.9; Prothrombin Time 12.3 sec (12.0-14.7)
[2019-10-28 03:42] LABS: PTT 29.9 sec (22.9-36.1)
[2019-10-28 03:49] LABS: Acetaminophen Less than 6.0 mcg/mL (10.0-30.0); Alcohol 16 mg/dL (Less than 10); Salicylate Less than 8.0 mg/dL (15.0-30.0)
[2019-10-28 03:50] LABS: ALT (SGPT) 9 U/L (8-55); AST (SGOT) 13 U/L (5-34); Albumin 3.6 g/dL (3.4-4.8); Alkaline Phosphatase 109 U/L (40-110); Anion Gap 16 mmol/L (10-20); BUN (Urea Nitrogen) 25 mg/dL (9.8-20.1); Bilirubin, Total 0.2 mg/dL (0.2-1.2); Calc. Creatinine Clearance 0 mL/min (70-130); Calcium 8.6 mg/dL (7.8-10.44); Carbon Dioxide 21 mmol/L (23-31); Chloride 102 mmol/L (98-107); Estimated GFR-MDRD 19; Globulin 3.2 g/dL (2.4-3.5); Glucose 86 mg/dL (80-115); Potassium 3.8 mmol/L (3.5-5.1); Protein, Total 6.8 g/dL (6.0-8.3); Sodium 135 mmol/L (136-145)
[2019-10-28] MEDS ORDERED: Aspirin 325 MG TAB ONE (04:36)
[2019-10-28] MEDS ORDERED: Lorazepam 0.5 MG TAB PO SCH (05:33)
--- NOTE | 2019-10-28 06:50 | HP ---
REASON FOR ADMISSION: Slurred speech and left-sided weakness. HISTORY OF PRESENT ILLNESS: This is a 64-year-old female patient who presented to the ER reporting weakness in her left side, more in her arm and then her leg. Also was noted to have left facial droop and slurred speech. She reports waking up in the morning with puffiness around her left eye. I did review her records and patient was admitted to our hospital in June 2019 with an acute stroke. She was discharged on full dose aspirin and Plavix. The patient claims that she has been compliant with 2 antiplatelets therapy and has been taking her blood pressure medications. Her blood pressure has been controlled. The patient when last time was here, had a right-sided facial and body numbness. MRI of the brain showed small acute left pontine infarct. CTA of the head and neck showed 40% luminal caliber narrowing involving the distal right CCA at the proximal left and right ICA. She was seen by Neurology. PAST MEDICAL HISTORY: 1. COPD. 2. Chronic kidney disease. 3. High blood pressure. 4. High cholesterol. 5. Mitral valve prolapse. 6. Obesity. 7. GERD. 8. IBD. 9. Status post cholecystectomy. 10. Hysterectomy. 11. Spinal surgery. 12. Bilateral cataract surgery. 13. Bladder surgery. SOCIAL HISTORY: She drinks socially. She continues to smoke cigarettes. Does mention of history of drug abuse. FAMILY HISTORY: Reviewed, found to be noncontributory. ALLERGIES: TO CLINDAMYCIN, METFORMIN, NAPROSYN, SULFA, AND TRAMADOL. REVIEW OF SYSTEMS: All systems reviewed, except the above mentioned, found to be negative. PHYSICAL EXAMINATION: GENERAL: Awake, alert, oriented, does not appear in distress. VITAL SIGNS: Her blood pressure is 176/91, heart rate of 73, temperature is 97.9, saturating 99% room air. HEAD: Nontraumatic, normocephalic. EYES: Pupils equal, reactive. Extraocular movements are intact. Nonicteric sclerae. Well injected conjunctivae. Oral mucosa normal. Nasal mucosa normal. NECK: Supple. No adenopathy. No murmur. Thyroid is not palpable. Trachea is midline. No supraclavicular adenopathy. HEART: S1, S2 regular. Systolic murmur is heard. LUNGS: Clear to auscultation bilaterally. No wheezes, rhonchi, or crackles. ABDOMEN: Bowel sounds are positive. Nontender abdomen. No hepatosplenomegaly. No lower extremity edema. No cyanosis. NEUROLOGIC: She does have a left facial droop. Her motricity is decreased on the left side, more in the left upper extremity than the left lower extremity. Sensory function appears to be normal. LABORATORY DATA: Blood work shows WBC of 8.1, hemoglobin 10.1, platelets of 210. INR 0.9. Sodium of 135, bicarb of 21, BUN of 25, creatinine of 2.48. Last creatinine was 1.76. IMAGING: A CT of the head shows pontine infarct. Official read is still pending. ASSESSMENT AND PLAN: This is a 64-year-old female patient presenting with left-sided weakness. The clinical picture is compatible with acute stroke despite being on dual anti-platelet therapy. Neurology, the patient will be admitted and monitored. We will do an MRI of the brain without contrast. We will ask Neurology to see her. We will continue with Plavix and aspirin for now. She will have heparin subcutaneously for deep venous thrombosis prophylaxis. I am awaiting her med rec to be done, so I could reconcile her medications. I did discuss with her code status and she wishes to be a full code. Job ID: [id number]
[2019-10-28 06:52] VITALS: BMI 23.7
--- NOTE | 2019-10-28 08:02 | CT ---
PRELIMINARY REPORT/[facility]/EMERGENCY AFTER HOURS PROCEDURE: Receipt of this report by the clinical staff was confirmed with PAULINA LOVETT MD by Gia Gilliland on Oct 28, 2019 03:15:00 CDT. Addendum electronically signed by Richa Gilliland on October 28, 2019 3:17:28 AM CDT EXAM: CT Head Without Intravenous Contrast. CLINICAL HISTORY: LEVEL 1 STROKE ER 9.. 64F; slurred speech, left arm and left leg weakness; no facail droop; last seen normal @2100 TECHNIQUE: Axial computed tomography images of the head/brain without intravenous contrast. COMPARISON: CT\SR - CT BRAIN WO CON - 01/10/2017 06:30 PM CDT FINDINGS: BRAIN: No acute intraparenchymal hemorrhage. No mass lesion. No CT evidence for acute territorial infarct. N o midline shift or extra-axial collection. Diffuse parenchymal atrophy. Unchanged areas of deep white matter hypoattenuation, consistent with microvascular ischemic disease. New 5 mm hypodensity in the left zeeshan, likely infarct. VENTRICLES: No hydrocephalus. ORBITS: The orbits are unremarkable. SINUSES AND MASTOIDS: The paranasal sinuses and mastoid air cells are clear. SOFT TISSUES: No significant facial or scalp soft tissue swelling evident. No radiopaque foreign body is seen. BONES: No acute skull fracture. IMPRESSION: No acute intracranial hemorrhage. New 5 mm hypodensity in the left zeeshan, likely infarct. Diffuse parenchymal atrophy with findings of small vessel ischemic change. Consider MRI to further e valuate given history. ELECTRONICALLY SIGNED BY: Alex Bradford MD Oct 28, 2019 3:13:06 AM CDT This report is intended for review by the ordering physician only, in accordance of law. If you recei ve this report in error, please call [facility] at [phone]. FINAL REPORT EMERGENCY AFTER HOURS BRIN CT WITHOUT IV CONTRAST 0302 hours 10/28/2019 IMPRESSION: New low attenuation focus in the left zeeshan. Stable atrophy and chronic white matter ischemic change. No mass or bleed. This report is in agreement with preliminary report by [facility]. POS: [facility]
[2019-10-28] MEDS: Heparin 5,000 UNITS/ML VIAL SC SCH ×3 (08:36→20:50)
--- NOTE | 2019-10-28 08:56 | RAD ---
RADIOGRAPH CHEST 1 VIEW: DATE: 10/28/2019 HISTORY: 64-year-old female concern for aspiration from acute stroke FINDINGS: There are no airspace densities, pulmonary edema, pneumothorax, or cardiomegaly. The lateral costophr enic angles are sharp. IMPRESSION: No acute cardiopulmonary findings.
[2019-10-28] MEDS ORDERED: Clopidogrel Bisulfate 75 MG TAB PO SCH (09:00)
[2019-10-28] MEDS ORDERED: Aspirin 325 mg Enteric Coated Tablet PO SCH (09:00)
--- NOTE | 2019-10-28 11:26 | CON ---
DATE OF CONSULTATION: 10/28/2019 CONSULTING PHYSICIAN: Hospitalist Service. IMPRESSION: 1. Recurrent stroke with left-sided weakness. 2. Aspirin and Plavix failure. PLAN: 1. Switch to Aggrenox. 2. PT, OT evaluations and probable need for inpatient rehab. HISTORY OF PRESENT ILLNESS: Ms. Logan is a 64-year-old woman who I saw back in June. She had evidence of pontine stroke. She had some transient left-sided weakness. She presented with recurrent left-sided weakness involving the arm and the leg. There was no associated slurred speech or difficulty swallowing. Her prior workup was otherwise unremarkable for any stenosis. She has been compliant with her aspirin and Plavix. OBJECTIVE: GENERAL: On exam at this time, she is alert and appropriate. NEUROLOGIC: Her speech is fluent and clear. Face appears symmetric. She only has partial antigravity strength in the left arm, but somewhat more strength in the left leg. Sensation was intact. No abnormal movements were seen. DIAGNOSTIC STUDIES: Repeat CT scan of the brain showed no evidence of an acute hemorrhage or mass effect from any type of lesion. Ms. Logan has recurrent left-sided weakness, likely secondary to recurrent ischemia from her small vessel disease. We will switch her over to Aggrenox. She will likely need to be transferred to Rehab. Job ID: [id number]
[2019-10-28] MEDS ORDERED: Atorvastatin Calcium 40 MG TAB PO SCH (13:45)
[2019-10-28] MEDS ORDERED: Labetalol HCl 100 MG/20 ML VIAL SLOW IVP PRN (15:32)
--- NOTE | 2019-10-28 16:57 | MRI ---
BRAIN MRI WITHOUT CONTRAST: 10/28/19 COMPARISON: None. HISTORY: Evaluate for acute infarction, slurred speech with left sided weakness. TECHNIQUE: Multiplanar, multisequence MR imaging of the brain is obtained without contrast. FINDINGS: Multiple scattered foci of restricted diffusion are noted consistent with acute infarction. This incl udes two punctate foci within the right cerebellar hemisphere, an 8 mm focus within the right aspect of the zeeshan, a focus within the occipital lobe on the right measuring 5 mm, a posterior 4 mm focus w ithin the posterior right parietal lobe, and two foci within the posterior superior frontal lobe near the vertex measuring up to 4-5 mm. The gradient echo imaging demonstrates no evidence for acute intr acranial hemorrhage. T2 and FLAIR imaging demonstrate patchy areas of increased T2 and FLAIR signal w ithin the periventricular deep and subcortical white matter, evidence of small vessel disease. The ar eas of acute infarction demonstrate mild increased T2 and FLAIR signal. Motion artifact limits detail ed assessment. Regional bone marrow signal intensity is grossly unremarkable. Arterial flow voids at the axial level of the skull base appear grossly. Imaged paranasal sinuses and mastoid air cells are well aerated. IMPRESSION: Multiple small foci of acute infarction on the right involving the zeeshan, cerebellum, and right cereb ral hemisphere as detailed above. POS: [facility]
[2019-10-28] MEDS: hydrALAZINE 20 MG/ML VIAL SLOW IVP PRN (17:11)
[2019-10-28] MEDS: Sodium Chloride 0.9% 1,000 ML IV SCH (17:11)
[2019-10-28] MEDS: Ezetimibe 10 MG TAB PO SCH (20:49)
[2019-10-28] MEDS: Atorvastatin Calcium 40 MG TAB PO SCH (20:49)
[2019-10-28] MEDS: hydrOXYzine 25 MG TAB PO SCH (20:49)
[2019-10-29] MEDS ORDERED: Melatonin 3 MG TAB PO PRN (01:39)
[2019-10-29] MEDS: Sodium Chloride 0.9% 1,000 ML IV SCH (04:52)
[2019-10-29 05:01] LABS: #Eosinphils 0.5 thou/uL (0.0-0.7); #Lymphocytes 1.7 thou/uL (1.20-3.40); #Neutrophils 4.1 thou/uL (1.40-6.50); %Basophils 0.4 % (0.0-1.0); %Lymphocytes 23.3 % (21.0-51.0); %Monocytes 13.7 % (0.0-10.0); %Neutrophils 55.6 % (42.0-75.0); Hemoglobin 10.1 g/dL (12.0-16.0); Mean Corpuscular Hemoglobin 29.2 pg (27.0-31.0); Mean Corpuscular Volume 88.4 fL (78.0-98.0); Mean Platelet Volume 8.8 fL (7.4-10.4); Platelet Count 190 thou/uL (130-400); RBC Distribution Width 12.6 % (11.5-14.5); Red Blood Cell (RBC) Count 3.45 mill/uL (4.20-5.40); White Blood Cell (WBC) Count 7.4 thou/uL (4.8-10.8)
[2019-10-29 05:22] LABS: Anion Gap 12 mmol/L (10-20); BUN (Urea Nitrogen) 26 mg/dL (9.8-20.1); Calc. Creatinine Clearance 28 mL/min (70-130); Calcium 8.4 mg/dL (7.8-10.44); Carbon Dioxide 21 mmol/L (23-31); Cardiac Risk 2.4 (Less than 4.5); Chloride 107 mmol/L (98-107); Cholesterol 127 mg/dl (< 200 Desired); Estimated GFR-MDRD 28; Glucose 118 mg/dL (80-115); HDL Cholesterol 52 mg/dL (>60 Neg Risk); LDL Cholesterol, Calculated 57 mg/dL; Potassium 3.8 mmol/L (3.5-5.1); Sodium 136 mmol/L (136-145); Triglycerides 88 mg/dL (Less than 150)
--- NOTE | 2019-10-29 07:30 | PDOC.HOSPP ---
- Subjective Encounter Date: 10/29/19 Encounter Time: 10:00 Subjective: Patient seen and examined to acute CVA. Left sided weakness and speech improving. No new complaints. No overnight events - Objective Vital Signs & Weight: Vital Signs (12 hours) Temp Pulse Resp BP Pulse Ox 10/29/19 04:42 98.9 F 70 20 139/64 96 10/29/19 00:12 98.7 F 76 18 159/76 H 98 10/28/19 19:49 99.0 F 76 16 166/70 H 97 Weight Weight 129 lb 14.4 oz I&O: 10/28/19 10/29/19 10/30/19 06:59 06:59 06:59 Intake Total 200 474 Output Total 600 Balance 200 -126 Result Diagrams: 10/29/19 04:40 10/29/19 04:40 Radiology Reviewed by me: Yes (MRI brain - acute CVA) EKG Reviewed by me: Yes (Tele SR) Hospitalist ROS - Review of Systems Cardiovascular: denies: chest pain, palpitations, orthopnea, paroxysmal noc. dyspnea, edema, light headedness, other Gastrointestinal: denies: nausea, vomiting, abdominal pain, diarrhea, constipation, melena, hematochezia, other - Medication Medications: Active Medications Generic Name Dose Route Start Last Admin Trade Name Freq PRN Reason Stop Dose Admin Atorvastatin Calcium 80 mg 10/28/19 21:00 10/28/19 20:49 Lipitor PO 80 mg HS GUILLE Administration Ezetimibe 10 mg 10/28/19 21:00 10/28/19 20:49 Zetia PO 10 mg HS GUILLE Administration Heparin Sodium (Porcine) 5,000 units 10/28/19 09:00 10/28/19 20:50 Heparin SC 5,000 units TID GUILLE Administration Hydralazine HCl 10 mg 10/28/19 15:35 10/28/19 17:11 Apresoline SLOW IVP 10 mg Q4H PRN Administration Hypertension Hydroxyzine HCl 50 mg 10/28/19 21:00 10/28/19 20:49 Atarax PO 50 mg BID GUILLE Administration Sodium Chloride 1,000 mls @ 100 mls/hr 10/28/19 15:00 10/29/19 04:52 Normal Saline 0.9% IV 1,000 mls .Q10H GUILLE Administration Melatonin 3 mg 10/29/19 01:39 10/29/19 01:52 Melatonin PO 3 mg HS PRN Administration Insomnia - Exam General Appearance: NAD Neck: supple, no JVD Heart: RRR, no gallops, no rubs, normal peripheral pulses Respiratory: no wheezes, no rales, no ronchi, normal chest expansion Gastrointestinal: non-tender, non-distended, normal bowel sounds Extremities: no cyanosis, no clubbing, no edema Extremities - other findings: no calf tenderendess Neurological: no new deficit Neurological - other findings: Left sided weakness improving - 3-/ Psychiatric: normal affect, A&O x 3 Hosp A/P - Plan DVT proph w/heparin, DVT proph w/lovenox Acute CVA causing Lt sided weakness -Failed ASA/Plavix -Aggrenox started 10/28 HTN SAMMIE on CKD 3 GERD HLD COPD Tob dep PLAN: Echo done 07/06 - reviewed Aggrenox started ASA/Plavix dced Cont Toprol BP earlier with PT was in 180s Restart Hydralazine for SBP >140 DC IVF - Pt tolerating PO well Cont Statins Stroke team Inpt Rehab eval Cont other meds as above
[2019-10-29] MEDS: Heparin 5,000 UNITS/ML VIAL SC SCH ×2 (09:06→20:51)
[2019-10-29] MEDS: Escitalopram Oxalate 20 mg Tablet PO SCH (09:08)
[2019-10-29] MEDS: Folic Acid 1 MG TAB PO SCH (09:08)
[2019-10-29] MEDS: Aggrenox 200-25mg CAP PO SCH (09:08)
[2019-10-29] MEDS: hydrOXYzine 25 MG TAB PO SCH ×2 (09:08→20:50)
[2019-10-29] MEDS: hydrALAZINE 20 MG/ML VIAL SLOW IVP PRN (10:00)
[2019-10-29] MEDS ORDERED: guaiFENesin ER 600 MG TAB PO SCH (11:45)
[2019-10-29] MEDS ORDERED: Acetaminophen 325 MG TAB PO PRN (13:08)
[2019-10-29] MEDS: Acetaminophen/Codeine 30-300mg Tablet PO PRN (17:40)
[2019-10-29] MEDS: hydrALAZINE 25 MG TAB PO SCH (20:50)
[2019-10-29] MEDS: guaiFENesin ER 600 MG TAB PO SCH (20:50)
[2019-10-29] MEDS: Atorvastatin Calcium 40 MG TAB PO SCH (20:51)
[2019-10-29] MEDS: Ezetimibe 10 MG TAB PO SCH (20:51)
[2019-10-29] MEDS: Zolpidem Tartrate 5 MG TAB PO PRN (22:03)
[2019-10-30] MEDS: hydrOXYzine 25 MG TAB PO SCH ×2 (09:37→21:53)
[2019-10-30] MEDS: guaiFENesin ER 600 MG TAB PO SCH ×2 (09:37→21:53)
[2019-10-30] MEDS: Aggrenox 200-25mg CAP PO SCH (09:38)
[2019-10-30] MEDS: Escitalopram Oxalate 20 mg Tablet PO SCH (09:38)
[2019-10-30] MEDS: hydrALAZINE 25 MG TAB PO SCH (09:38)
[2019-10-30] MEDS: Folic Acid 1 MG TAB PO SCH (09:39)
[2019-10-30] MEDS: Heparin 5,000 UNITS/ML VIAL SC SCH ×2 (09:39→21:53)
--- NOTE | 2019-10-30 09:43 | PDOC.HOSPP ---
- Subjective Encounter Date: 10/30/19 - Objective Vital Signs & Weight: Vital Signs (12 hours) Temp Pulse Resp BP Pulse Ox 10/30/19 07:47 98.8 F 72 16 174/69 H 97 10/30/19 04:11 97.9 F 75 18 151/74 H 96 10/29/19 23:20 98.1 F 86 18 139/74 96 Weight Weight 129 lb 14.4 oz I&O: 10/29/19 10/30/19 10/31/19 06:59 06:59 06:59 Intake Total 954 Output Total 1100 Balance -146 Result Diagrams: 10/29/19 04:40 10/29/19 04:40 Hospitalist ROS - Medication Medications: Active Medications Generic Name Dose Route Start Last Admin Trade Name Freq PRN Reason Stop Dose Admin Acetaminophen 650 mg 10/29/19 13:08 10/29/19 13:22 Tylenol PO 650 mg Q4H PRN Administration Headache/Fever/Mild Pain (1-3) Acetaminophen/Codeine Phosphate 1 tab 10/29/19 16:44 10/29/19 17:40 Tylenol #3 PO 1 tab Q6H PRN Administration Moderate Pain (4-6) Atorvastatin Calcium 80 mg 10/28/19 21:00 10/29/19 20:51 Lipitor PO 80 mg HS GUILLE Administration Dipyridamole/Aspirin 1 cap 10/29/19 09:00 10/29/19 09:08 Aggrenox PO 11/01/19 09:01 1 cap DAILY GUILLE Administration Ezetimibe 10 mg 10/28/19 21:00 10/29/19 20:51 Zetia PO 10 mg HS GUILLE Administration Escitalopram Oxalate 20 mg 10/29/19 09:00 10/29/19 09:08 Lexapro PO 20 mg DAILY GUILLE Administration Folic Acid 1 mg 10/29/19 09:00 10/29/19 09:08 Folvite PO 1 mg DAILY GUILLE Administration Guaifenesin 1,200 mg 10/29/19 21:00 10/29/19 20:50 Mucinex PO Not Given Q12HR [facility] Heparin Sodium (Porcine) 5,000 units 10/29/19 21:00 10/29/19 20:51 Heparin SC 5,000 units BID GUILLE Administration Hydralazine HCl 10 mg 10/28/19 15:35 10/29/19 10:00 Apresoline SLOW IVP 10 mg Q4H PRN Administration Hypertension Hydroxyzine HCl 50 mg 10/28/19 21:00 10/29/19 20:50 Atarax PO 50 mg BID GUILLE Administration Melatonin 3 mg 10/29/19 01:39 10/29/19 01:52 Melatonin PO 3 mg HS PRN Administration Insomnia Metoprolol Succinate 50 mg 10/29/19 09:00 10/29/19 09:08 Toprol Xl PO 50 mg DAILY GUILLE Administration Pantoprazole Sodium 40 mg 10/29/19 09:00 10/29/19 09:08 Protonix PO 40 mg DAILY GUILLE Administration Sodium Chloride 10 ml 10/28/19 05:24 10/29/19 20:57 Flush - Normal Saline IVF 10 ml PRN PRN Administration Saline Flush Zolpidem Tartrate 5 mg 10/29/19 10:59 10/29/19 22:03 Ambien PO 5 mg HSPRN PRN Administration Insomnia Hosp A/P - Plan PT/OT, DVT proph w/heparin Acute CVA causing Lt sided weakness -Failed ASA/Plavix -Aggrenox started 10/28 -Echo done 07/06 -ASA/Plavix dced HTN - uncontrolled SAMMIE on CKD 3 -Creatinine back to baseline GERD HLD COPD Tob dep PLAN: Cont Aggrenox Cont Statins Stroke team Cont Toprol Increase Hydralazine Avoid Nephrotoxins Inpt Rehab eval pending Stable for dc later today if approved Cont other meds as above
[2019-10-30] MEDS: Acetaminophen/Codeine 30-300mg Tablet PO PRN (09:56)
--- NOTE | 2019-10-30 12:29 | PDOC.HOSPP ---
- Subjective Encounter Date: 10/30/19 Subjective: NEUROLOGY PROGRESS NOTE Patient alert, oriented and following commands appropriately. No acute events overnight. - Objective Vital Signs & Weight: Vital Signs (12 hours) Temp Pulse Pulse Pulse Resp BP BP 10/30/19 11:47 98.6 F 74 16 10/30/19 10:46 10/30/19 09:54 80 80 189/91 H 195/82 H 10/30/19 07:47 98.8 F 72 16 10/30/19 04:11 97.9 F 75 18 BP Pulse Ox 10/30/19 11:47 135/69 97 10/30/19 10:46 136/71 10/30/19 09:54 10/30/19 07:47 174/69 H 97 10/30/19 04:11 151/74 H 96 Weight Weight 129 lb 14.4 oz I&O: 10/29/19 10/30/19 10/31/19 06:59 06:59 06:59 Intake Total 954 Output Total 1100 Balance -146 Result Diagrams: 10/29/19 04:40 10/29/19 04:40 Radiology Reviewed by me: Yes EKG Reviewed by me: Yes Hospitalist ROS - Review of Systems Constitutional: denies: fever, chills, sweats, weakness, malaise, other Eyes: denies: pain, vision change, conjunctivae inflammation, eyelid inflammation, redness, other ENT: denies: ear pain, ear discharge, nose pain, nose discharge, nose congestion , mouth pain, mouth swelling, throat pain, throat swelling, other Respiratory: denies: cough, dry, shortness of breath, hemoptysis, SOB with excertion, pleuritic pain, sputum, wheezing, other Cardiovascular: denies: chest pain, palpitations, orthopnea, paroxysmal noc. dyspnea, edema, light headedness, other Gastrointestinal: denies: nausea, vomiting, abdominal pain, diarrhea, constipation, melena, hematochezia, other Genitourinary: denies: dysuria, frequency, incontinence, hematuria, retention, other Musculoskeletal: denies: neck pain, shoulder pain, arm pain, back pain, hand pain, leg pain, foot pain, other Neurological: reports: weakness, numbness, incoordination - Medication Medications: Active Medications Generic Name Dose Route Start Last Admin Trade Name Freq PRN Reason Stop Dose Admin Acetaminophen 650 mg 10/29/19 13:08 10/29/19 13:22 Tylenol PO 650 mg Q4H PRN Administration Headache/Fever/Mild Pain (1-3) Acetaminophen/Codeine Phosphate 1 tab 10/29/19 16:44 10/30/19 09:56 Tylenol #3 PO 1 tab Q6H PRN Administration Moderate Pain (4-6) Atorvastatin Calcium 80 mg 10/28/19 21:00 10/29/19 20:51 Lipitor PO 80 mg HS GUILLE Administration Dipyridamole/Aspirin 1 cap 10/29/19 09:00 10/30/19 09:38 Aggrenox PO 11/01/19 09:01 1 cap DAILY GUILLE Administration Ezetimibe 10 mg 10/28/19 21:00 10/29/19 20:51 Zetia PO 10 mg HS GUILLE Administration Escitalopram Oxalate 20 mg 10/29/19 09:00 10/30/19 09:38 Lexapro PO 20 mg DAILY GUILLE Administration Folic Acid 1 mg 10/29/19 09:00 10/30/19 09:39 Folvite PO 1 mg DAILY GUILLE Administration Guaifenesin 1,200 mg 10/29/19 21:00 10/30/19 09:37 Mucinex PO 1,200 mg Q12HR GUILLE Administration Heparin Sodium (Porcine) 5,000 units 10/29/19 21:00 10/30/19 09:39 Heparin SC 5,000 units BID GUILLE Administration Hydralazine HCl 10 mg 10/28/19 15:35 10/29/19 10:00 Apresoline SLOW IVP 10 mg Q4H PRN Administration Hypertension Hydroxyzine HCl 50 mg 10/28/19 21:00 10/30/19 09:37 Atarax PO 50 mg BID GUILLE Administration Melatonin 3 mg 10/29/19 01:39 10/29/19 01:52 Melatonin PO 3 mg HS PRN Administration Insomnia Metoprolol Succinate 50 mg 10/29/19 09:00 10/30/19 09:37 Toprol Xl PO 50 mg DAILY GUILLE Administration Pantoprazole Sodium 40 mg 10/29/19 09:00 10/30/19 09:38 Protonix PO 40 mg DAILY GUILLE Administration Sodium Chloride 10 ml 10/28/19 05:24 10/29/19 20:57 Flush - Normal Saline IVF 10 ml PRN PRN Administration Saline Flush Zolpidem Tartrate 5 mg 10/29/19 10:59 10/29/19 22:03 Ambien PO 5 mg HSPRN PRN Administration Insomnia - Exam General Appearance: awake alert Eye: PERRL ENT: normocephalic atraumatic Neck: supple Heart: RRR Respiratory: CTAB Gastrointestinal: soft Extremities: no cyanosis Skin: normal turgor Neurological: no new deficit, facial droop, hemiplegia Neurological - other findings: left hemiparesis Musculoskeletal: no muscle wasting Psychiatric: normal affect, normal behavior, A&O x 3, oriented to person, oriented to place, oriented to time Hosp A/P (1) Acute CVA (cerebrovascular accident) Code(s): I63.9 - CEREBRAL INFARCTION, UNSPECIFIED Status: Acute (2) Acute renal failure superimposed on chronic kidney disease Code(s): N17.9 - ACUTE KIDNEY FAILURE, UNSPECIFIED; N18.9 - CHRONIC KIDNEY DISEASE, UNSPECIFIED Status: Acute (3) General weakness Code(s): R53.1 - WEAKNESS Status: Acute - Plan PT/OT, speech therapy, DVT proph w/lovenox Consults: other (rehab) 63 year old with acute onset left sided weakness. Imaging positive for acute CVA. MRI Brain reviewed and was positive for acute infarction in the right zeeshan, cerebellum and cerebrum. Neurochecks every 4 hours. Telemetry Continue home medications. Recurrent stroke on aspirin and plavix. Discontinue both and start on Aggrenox. Continue statin for secondary stroke prevention. PT/OT/Speech. Awaiting rehab placement. CM on board. Plan discussed with the patient and the floor team during the stroke rounds.
[2019-10-30] MEDS ORDERED: HYDROcodone/Acetaminophen 10/325 mg Tablet PO PRN (14:52)
[2019-10-30] MEDS ORDERED: hydrALAZINE 25 MG TAB PO SCH ×2 (15:00→21:00)
--- NOTE | 2019-10-30 15:52 | PDOC.HOSPP ---
- Subjective Encounter Date: 10/30/19 Encounter Time: 15:00 Subjective: Patient seen and examined for Acute CVA. No new focal deficits. No new complaints. No overnight events - Objective Vital Signs & Weight: Vital Signs (12 hours) Temp Pulse Pulse Pulse Resp BP BP 10/30/19 15:42 141/64 H 10/30/19 15:41 98.8 F 76 16 10/30/19 11:47 98.6 F 74 16 10/30/19 10:46 10/30/19 09:54 80 80 189/91 H 10/30/19 07:47 98.8 F 72 16 10/30/19 04:11 97.9 F 75 18 BP BP Pulse Ox 10/30/19 15:42 10/30/19 15:41 141/67 H 95 10/30/19 11:47 135/69 97 10/30/19 10:46 136/71 10/30/19 09:54 195/82 H 10/30/19 07:47 174/69 H 97 10/30/19 04:11 151/74 H 96 Weight Weight 129 lb 14.4 oz I&O: 10/29/19 10/30/19 10/31/19 06:59 06:59 06:59 Intake Total 954 Output Total 1100 Balance -146 Result Diagrams: 10/29/19 04:40 10/29/19 04:40 EKG Reviewed by me: Yes (Tele SR) Hospitalist ROS - Review of Systems Respiratory: denies: cough, dry, shortness of breath, hemoptysis, SOB with excertion, pleuritic pain, sputum, wheezing, other Cardiovascular: denies: chest pain, palpitations, orthopnea, paroxysmal noc. dyspnea, edema, light headedness, other - Medication Medications: Active Medications Generic Name Dose Route Start Last Admin Trade Name Freq PRN Reason Stop Dose Admin Acetaminophen 650 mg 10/29/19 13:08 10/29/19 13:22 Tylenol PO 650 mg Q4H PRN Administration Headache/Fever/Mild Pain (1-3) Atorvastatin Calcium 80 mg 10/28/19 21:00 10/29/19 20:51 Lipitor PO 80 mg HS GUILLE Administration Dipyridamole/Aspirin 1 cap 10/29/19 09:00 10/30/19 09:38 Aggrenox PO 11/01/19 09:01 1 cap DAILY GUILLE Administration Ezetimibe 10 mg 10/28/19 21:00 10/29/19 20:51 Zetia PO 10 mg HS GUILLE Administration Escitalopram Oxalate 20 mg 10/29/19 09:00 10/30/19 09:38 Lexapro PO 20 mg DAILY GUILLE Administration Folic Acid 1 mg 10/29/19 09:00 10/30/19 09:39 Folvite PO 1 mg DAILY GUILLE Administration Guaifenesin 1,200 mg 10/29/19 21:00 10/30/19 09:37 Mucinex PO 1,200 mg Q12HR GUILLE Administration Heparin Sodium (Porcine) 5,000 units 10/29/19 21:00 10/30/19 09:39 Heparin SC 5,000 units BID GUILLE Administration Hydralazine HCl 10 mg 10/28/19 15:35 10/29/19 10:00 Apresoline SLOW IVP 10 mg Q4H PRN Administration Hypertension Hydralazine HCl 25 mg 10/30/19 15:00 10/30/19 15:42 Apresoline PO 25 mg TID GUILLE Administration Hydroxyzine HCl 50 mg 10/28/19 21:00 10/30/19 09:37 Atarax PO 50 mg BID GUILLE Administration Melatonin 3 mg 10/29/19 01:39 10/29/19 01:52 Melatonin PO 3 mg HS PRN Administration Insomnia Metoprolol Succinate 50 mg 10/29/19 09:00 10/30/19 09:37 Toprol Xl PO 50 mg DAILY GUILLE Administration Pantoprazole Sodium 40 mg 10/29/19 09:00 10/30/19 09:38 Protonix PO 40 mg DAILY GUILLE Administration Sodium Chloride 10 ml 10/28/19 05:24 10/29/19 20:57 Flush - Normal Saline IVF 10 ml PRN PRN Administration Saline Flush Zolpidem Tartrate 5 mg 10/29/19 10:59 10/29/19 22:03 Ambien PO 5 mg HSPRN PRN Administration Insomnia - Exam General Appearance: NAD Neck: supple, no JVD Heart: RRR, no gallops Respiratory: no wheezes, no rales Gastrointestinal: soft, non-tender, no guarding, no rigidity Neurological: no new deficit Psychiatric: normal affect, A&O x 3 Hosp A/P - Plan PT/OT, DVT proph w/heparin, DVT proph w/SCDs Acute CVA causing Lt sided weakness -Failed ASA/Plavix -Aggrenox started 10/28 -Echo done 07/06 -ASA/Plavix dced HTN - better controlled SAMMIE on CKD 3 -Creatinine back to baseline GERD HLD COPD Tob dep PLAN: Cont Aggrenox Cont Statins Stroke team Cont Toprol/Hydralazine Avoid Nephrotoxins Inpt Rehab eval pending Stable for dc once approved by Rehab Cont other meds as above
[2019-10-30] MEDS: Ezetimibe 10 MG TAB PO SCH (21:53)
[2019-10-30] MEDS: Atorvastatin Calcium 40 MG TAB PO SCH (21:53)
[2019-10-31] MEDS: Zolpidem Tartrate 5 MG TAB PO PRN (00:35)
[2019-10-31 07:21] VITALS: TEMP 98.5
[2019-10-31] MEDS ORDERED: hydrALAZINE 25 MG TAB PO SCH (09:00)
[2019-10-31] MEDS: guaiFENesin ER 600 MG TAB PO SCH (09:23)
[2019-10-31] MEDS: Aggrenox 200-25mg CAP PO SCH (09:23)
[2019-10-31] MEDS: hydrOXYzine 25 MG TAB PO SCH (09:25)
[2019-10-31] MEDS: Folic Acid 1 MG TAB PO SCH (09:25)
[2019-10-31] MEDS: Heparin 5,000 UNITS/ML VIAL SC SCH (09:26)
[2019-10-31] MEDS: Escitalopram Oxalate 20 mg Tablet PO SCH (09:26)
[2019-10-31 09:34] VITALS: BP 145/77
--- NOTE | 2019-10-31 12:43 | DIS ---
DATE OF ADMISSION: 10/28/2019 DATE OF DISCHARGE: 10/31/2019 DISCHARGE DISPOSITION: Home. FOLLOWUP: 1. With primary care physician, Dr. Seema Nesbitt in 1 week. 2. Follow up with Dr. Garcia in 2 weeks. The patient was seen and examined on the day of discharge. Denies any new complaints. No new focal deficit. DISCHARGE MEDICATIONS: Aspirin, Plavix were discontinued. Instead, the patient was started on Aggrenox. She was also started on Lipitor. All other home medications were left unchanged. Tobacco cessation was emphasized. BRIEF HOSPITAL COURSE: The patient is a 64-year-old female with hypertension, hyperlipidemia, currently on aspirin and Plavix presented to the hospital with slurriness of speech with left-sided weakness. Her workup was consistent with acute CVA involving the right zeeshan, cerebellum, and the right cerebral hemisphere. She was evaluated by Neurology. Neurology recommended stopping aspirin and Plavix. She has been started on Aggrenox. She also had mild SAMMIE that has resolved. Her creatinine is at her baseline at 1.82. She was extensively counseled on lifestyle modification including tobacco cessation. FINAL DIAGNOSES: 1. Acute cerebrovascular accident as discussed above. 2. Hypertension. 3. Acute kidney injury on chronic kidney disease stage 3. 4. Gastroesophageal reflux disease. 5. Hyperlipidemia. 6. Chronic obstructive pulmonary disease. 7. Tobacco dependence. 8. History of mitral valve prolapse. 9. Chronic obstructive pulmonary disease. 10. Hyponatremia. 11. Chronic anemia suspected due to nutritional deficiency. SIGNIFICANT LABORATORY DATA: Fasting lipid profile showed cholesterol 127 with LDL 57, triglyceride 88. Job ID: [id number]
[2019-11-02] MEDS ORDERED: Aggrenox 200-25mg CAP PO SCH (09:00)
== END 2019-10-31 12:15 | DRG 65 ==
LOC: ERS 02:57 → OBSVTOIN 04:16 → 2SE 04:16
PROVIDERS: ADMIT Internal Medicine; ATTEND Internal Medicine
DX: I63.89 Other cerebral infarction (principal); G81.94 Hemiplegia, unspecified affecting left nondominant side; R47.81 Slurred speech; R40.2412 Glasgow coma scale score 13-15, at arrival to emergency department; R29.703 NIHSS score 3; K21.9 Gastro-esophageal reflux disease without esophagitis; K58.9 Irritable bowel syndrome, unspecified; E78.5 Hyperlipidemia, unspecified; M19.90 Unspecified osteoarthritis, unspecified site; E78.00 Pure hypercholesterolemia, unspecified; E66.9 Obesity, unspecified; J44.9 Chronic obstructive pulmonary disease, unspecified; I12.9 Hypertensive chronic kidney disease with stage 1 through stage 4 chronic kidney disease, or unspecified chronic kidney disease; N18.3 Chronic kidney disease, stage 3 (moderate); F17.210 Nicotine dependence, cigarettes, uncomplicated; Z88.2 Allergy status to sulfonamides; Z88.8 Allergy status to other drugs, medicaments and biological substances; Z88.1 Allergy status to other antibiotic agents; Z79.899 Other long term (current) drug therapy; Z79.82 Long term (current) use of aspirin; Z79.01 Long term (current) use of anticoagulants; Z68.23 Body mass index [BMI] 23.0-23.9, adult; Z90.710 Acquired absence of both cervix and uterus; Z88.5 Allergy status to narcotic agent
CPT/HCPCS: 36415; 70450; 70551; 71045; 76770; 80048; 80053; 80061; 80307; 84484; 85025; 85610; 85730; 93005; 96374; G0378; J0360; J1644

== ENCOUNTER 2020-01-05 13:57 | Outpatient (CLI) | payer MEDICARE, MEDICAID ==
--- NOTE | 2020-01-05 16:20 | MRI ---
MRI OF THE LUMBAR SPINE 01/05/20 PROVIDED CLINICAL HISTORY: Lumbar radiculopathy. FINDINGS: Five lumbar vertebral bodies are seen. There is grade I anterolisthesis of L4 on L5. Lumbar alignment appears otherwise normal. Vertebral body heights appear preserved. The conus medullaris is normal in signal and terminates at an appropriate level. The visualized extraspinal soft tissues appear unrema rkable with the exception of bilateral hydronephrosis and hydroureters similar to recent CT examinati on. At L1-2, there is maintenance of disc space height and hydration. There is no significant central can al or foraminal narrowing apparent. There is bilateral mild facet arthritis. At L2-3, there is maintenance of disc space height and hydration. No significant central canal or for aminal narrowing apparent. At L3-4, there is advanced bilateral facet arthritis. Maintenance of disc space height and hydration. Broad disc bulge with mild left foraminal narrowing. No significant central canal stenosis apparent. At L4-5, there is a broad based pseudobulge asymmetric in the left foraminal region. There is bilater al facet arthritis. There is severe bilateral foraminal narrowing. There is moderate/severe central c anal stenosis and severe left and moderate right subarticular stenosis. At L5-S1, there is a broad based disc bulge and bilateral facet arthritis. There is mild bilateral fo raminal narrowing. There is no significant central canal stenosis apparent. IMPRESSION: Lumbar disc and facet degenerative change as described above, most conspicuously affecting L4-5. POS: DEVENDRA
== END 2020-01-05 13:58 | disposition home or self-care (01) ==
LOC: BICMRI 13:57
PROVIDERS: ATTEND Family Medicine
DX: M51.16 Intervertebral disc disorders with radiculopathy, lumbar region (principal); M48.061 Spinal stenosis, lumbar region without neurogenic claudication; M96.1 Postlaminectomy syndrome, not elsewhere classified; G89.4 Chronic pain syndrome; M47.26 Other spondylosis with radiculopathy, lumbar region; M47.817 Spondylosis without myelopathy or radiculopathy, lumbosacral region
CPT/HCPCS: 72148; 82565

== ENCOUNTER 2020-01-11 13:26 | Inpatient (IN) | payer MEDICARE, MEDICAID, OTHER ==
[2020-01-11] MEDS ORDERED: Magnesium 2 GM/50 ML BAG (IN WATER) ONE (14:10)
--- NOTE | 2020-01-11 14:11 | RAD ---
XR Chest 1 View Portable HISTORY: Dyspnea, nonproductive cough, COPD COMPARISON: 10/28/2019 FINDINGS: The heart size is at upper limits of normal. The aorta is tortuous. The lungs are well expa nded without focal areas of consolidation, pneumothorax or pleural effusions. IMPRESSION: No radiographic evidence of acute cardiopulmonary process.
[2020-01-11 14:13] LABS: #Eosinphils 0.2 thou/uL (0.0-0.7); #Lymphocytes 1.2 thou/uL (1.20-3.40); #Monocytes 1.2 thou/uL (0.11-0.59); #Neutrophils 9.6 thou/uL (1.40-6.50); %Basophils 0.4 % (0.0-1.0); %Eosinophils 1.3 % (0.0-10.0); %Lymphocytes 9.7 % (21.0-51.0); %Monocytes 9.9 % (0.0-10.0); %Neutrophils 78.8 % (42.0-75.0); Hemoglobin 9.3 g/dL (12.0-16.0); Mean Corpuscular HGB CONC 33.2 g/dL (32.0-36.0); Mean Corpuscular Hemoglobin 30.3 pg (27.0-31.0); Mean Corpuscular Volume 91.2 fL (78.0-98.0); Mean Platelet Volume 7.5 fL (7.4-10.4); Platelet Count 190 thou/uL (130-400); RBC Distribution Width 12.1 % (11.5-14.5); Red Blood Cell (RBC) Count 3.07 mill/uL (4.20-5.40); White Blood Cell (WBC) Count 12.1 thou/uL (4.8-10.8)
[2020-01-11 14:30] LABS: ALT (SGPT) 8 U/L (8-55); AST (SGOT) 10 U/L (5-34); Albumin 3.6 g/dL (3.4-4.8); Alkaline Phosphatase 101 U/L (40-110); Anion Gap 14 mmol/L (10-20); BUN (Urea Nitrogen) 30 mg/dL (9.8-20.1); Bilirubin, Total 0.6 mg/dL (0.2-1.2); Calc. Creatinine Clearance 0 mL/min (70-130); Calcium 8.6 mg/dL (7.8-10.44); Carbon Dioxide 25 mmol/L (23-31); Chloride 102 mmol/L (98-107); Estimated GFR-MDRD 25; Globulin 3.1 g/dL (2.4-3.5); Glucose 133 mg/dL (80-115); Protein, Total 6.7 g/dL (6.0-8.3); Sodium 137 mmol/L (136-145)
[2020-01-11] MEDS ORDERED: Acetaminophen 325 MG TAB PO PRN (15:55)
[2020-01-11] MEDS ORDERED: Bisacodyl 5 MG TAB PO PRN (15:55)
--- NOTE | 2020-01-11 16:06 | PDOC.HHP ---
Hospitalist HPI - History of Present Illness Shortness of breath History of Present Illness: Patient is a pleasant 64-year-old lady who was seen in the emergency room on January 11, 2020. She has a history of COPD. She does not have any history of congestive heart failure. She reports that her shortness of breath has gotten worse over the last 2 to 3 days. She has been using nebulizers at home without much effect. She also reports cough that started today and is productive. She reports occasional body aches but does not think there is anything new for her. She does not use oxygen at home. She denies any fevers. She denies any known contact with COVID-19 patients. She denies any lower ex tremity edema but endorses orthopnea. She presented to the emergency room because of above symptoms. ED Course: BP: 149/65, Pulse: 88, Resp: 18, Temp: 98.9 (Oral), Pain: 5, O2 sat: 95 on (Room Air), Time: 01/11/2020 13:28. Hospitalist ROS - Review of Systems Constitutional: reports: weakness. denies: fever, chills, sweats, malaise Respiratory: reports: cough, shortness of breath, sputum, wheezing Cardiovascular: reports: orthopnea. denies: chest pain, palpitations, paroxysmal noc. dyspnea, edema, light headedness Gastrointestinal: denies: nausea, vomiting, abdominal pain, diarrhea, constipation, melena, hematochezia Genitourinary: denies: dysuria, frequency, incontinence, hematuria, retention Skin: denies: rash, lesions, ed, bruising All other systems reviewed; all pertinent +/- noted in HPI/Subj - Medication Medications: Allergies: Bactrim, Clindamycin, metFORMIN, Naprosyn, naproxen (Unconfirmed), Plavix, Sulfa (Sulfonamide Antibiotics), sulfamethoxazole (Unconfirmed), traMADol, trimethoprim (Unconfirmed) Current medications: chlordiazePOXIDE HCl CAPSULE : Strength - 10 mg : ORAL Patient Dose: 20 mg Oral 3 times a day. aspirin-dipyridamole capsule, ER multiphase 12 hr : Strength - 25 mg-200 mg : ORAL Patient Dose: 1 cap(s) Oral 2 times a day. oxybutynin chloride tablet : Strength - 5 mg : ORAL Patient Dose: 10 mg Oral 2 times a day. montelukast tablet : Strength - 10 mg : ORAL Patient Dose: 10 mg Oral once a day. benzonatate capsule : Strength - 100 mg : ORAL Patient Dose: 100 mg Oral As Needed. atorvastatin tablet : Strength - 80 mg : ORAL Patient Dose: 80 mg Oral once a day. Lexapro tablet : Strength - 20 mg : ORAL Patient Dose: 30 mg Oral once a day. metoprolol succinate tablet extended release 24 hr : Strength - 50 mg : ORAL Patient Dose: 50 mg Oral once a day. pantoprazole oral tablet,delayed release (DR/EC) : Strength - 40 mg : ORAL Patient Dose: 40 mg Oral once a day. folic acid oral tablet : Strength - 1 mg : ORAL Patient Dose: 1 mg Oral once a day. hydrOXYzine HCl oral tablet : Strength - 100 mg : ORAL Patient Dose: 100 mg Oral every 4 hours prn. Hospitalist History - Past Medical History Pulmonary: reports: COPD [facility] [employer]: reports: CVA Psych: reports: Anxiety, Depression Renal/: reports: Chronic renal failure - Past Surgical History Past Surgical History: reports: Cholecystectomy, Hysterectomy - Family History Family History: reports: Other (Congestive heart failure in mother) - Social History Smoking Status: Smokes 0-10 cigs daily Alcohol: reports: Rare Drugs: reports: none - Exam General Appearance: awake alert Eye: anicteric sclera ENT: moist mucosa Neck: supple, symmetric, no thyromegaly, no lymphadenopathy, JVD Heart: RRR, no gallops, no rubs, normal peripheral pulses Respiratory: normal chest expansion, no tachypnea, normal percussion, wheezes Gastrointestinal: soft, non-tender, non-distended, normal bowel sounds Extremities: no cyanosis, no edema Skin: no rashes Psychiatric: normal affect, normal behavior, A&O x 3 Hospitalist Results - Labs Result Diagrams: 01/11/20 13:59 01/11/20 13:59 Lab results: WBC 12.1 thou/uL (4.8-10.8) H 01/11/20 13:59 Hgb 9.3 g/dL (12.0-16.0) L 01/11/20 13:59 Hct 28.0 % (36.0-47.0) L 01/11/20 13:59 MCV 91.2 fL (78.0-98.0) 01/11/20 13:59 Plt Count 190 thou/uL (130-400) 01/11/20 13:59 Neutrophils % 78.8 % (42.0-75.0) H 01/11/20 13:59 Sodium 137 mmol/L (136-145) 01/11/20 13:59 Potassium 4.0 mmol/L (3.5-5.1) 01/11/20 13:59 Chloride 102 mmol/L (98-107) 01/11/20 13:59 Carbon Dioxide 25 mmol/L (23-31) 01/11/20 13:59 BUN 30 mg/dL (9.8-20.1) H 01/11/20 13:59 Creatinine 1.97 mg/dL (0.6-1.1) H 01/11/20 13:59 Glucose 133 mg/dL (80-115) H 01/11/20 13:59 Calcium 8.6 mg/dL (7.8-10.44) 01/11/20 13:59 Total Bilirubin 0.6 mg/dL (0.2-1.2) 01/11/20 13:59 AST 10 U/L (5-34) 01/11/20 13:59 ALT 8 U/L (8-55) 01/11/20 13:59 Alkaline Phosphatase 101 U/L (40-110) 01/11/20 13:59 Troponin I 0.016 ng/mL (< 0.028) 01/11/20 13:59 B-Natriuretic Peptide 1023.5 pg/mL (0-100) H 01/11/20 13:59 Serum Total Protein 6.7 g/dL (6.0-8.3) 01/11/20 13:59 Albumin 3.6 g/dL (3.4-4.8) 01/11/20 13:59 - EKG Interpretation EKG: EKG by my review shows normal sinus rhythm, no ST changes to suggest an acute coronary syndrome. - Radiology Interpretation Chest x-ray Status: image reviewed by me Additional Comment: XR Chest 1 View Portable HISTORY: Dyspnea, nonproductive cough, COPD COMPARISON: 10/28/2019 FINDINGS: The heart size is at upper limits of normal. The aorta is tortuous. The lungs are well expa nded without focal areas of consolidation, pneumothorax or pleural effusions. IMPRESSION: No radiographic evidence of acute cardiopulmonary process. Hospitalist H&P A/P - Problem (1) Shortness of breath Code(s): R06.02 - SHORTNESS OF BREATH Status: Acute (2) COPD exacerbation Code(s): J44.1 - CHRONIC OBSTRUCTIVE PULMONARY DISEASE W (ACUTE) EXACERBATION Status: Acute (3) Acute exacerbation of congestive heart failure Code(s): I50.9 - HEART FAILURE, UNSPECIFIED Status: Suspected (4) Dyslipidemia Code(s): E78.5 - HYPERLIPIDEMIA, UNSPECIFIED Status: Chronic (5) GERD (gastroesophageal reflux disease) Code(s): K21.9 - GASTRO-ESOPHAGEAL REFLUX DISEASE WITHOUT ESOPHAGITIS Status: Chronic Qualifiers: Esophagitis presence: esophagitis presence not specified Qualified Code(s): K21.9 - Gastro-esophageal reflux disease without esophagitis (6) Hypertension Code(s): I10 - ESSENTIAL (PRIMARY) HYPERTENSION Status: Chronic Qualifiers: Hypertension type: essential hypertension Qualified Code(s): I10 - Essential (primary) hypertension (7) Chronic kidney disease, stage IV (severe) Code(s): N18.4 - CHRONIC KIDNEY DISEASE, STAGE 4 (SEVERE) Status: Chronic - Plan Plan: Patient's presentation appears to be a combination of COPD exacerbation and CHF exacerbation. She does not have any lower extremity edema but does have jugular venous distention and endorses orthopnea. BNP is also elevated at 1023. Patient to be treated with oxygen, steroids, bronchodilators and antibiotics. Pulmonology service will be consulted for opinion and help with management. We will start patient on IV furosemide. Chronic kidney disease is stable. COVID-19 test pending. Resume patient's home medications once clarified. Estimated length of stay: Greater than 2 midnights. Level of risk: High. Level of complexity: High. Primary care provider:Dr. Odalys Nesbitt [employer] Tech: Dr. Sanford
[2020-01-11] MEDS ORDERED: Furosemide 40 MG/4 ML VIAL SLOW IVP SCH (16:15)
[2020-01-11 17:45] LABS: SARS-CoV-2 NAA Rapid Test Not Detected (NotDetected)
[2020-01-11] MEDS: cefTRIAXone\\ROCEPHIN 1 GM in Sodium Chloride 0.9% 100 ML IVPB SCH (18:08)
[2020-01-11] MEDS: methylPREDNISolone Sod Succ 40 MG VIAL IVP SCH ×2 (18:10→23:31)
[2020-01-11 19:17] VITALS: BMI 25.9
[2020-01-11] MEDS: Doxycycline 100 MG CAP PO SCH (20:16)
[2020-01-11] MEDS: Nicotine 14 MG PATCH TD SCH (20:17)
[2020-01-11] MEDS: HYDROcodone/Acetaminophen 10/325 mg Tablet PO PRN (22:23)
[2020-01-12] MEDS: methylPREDNISolone Sod Succ 40 MG VIAL IVP SCH ×3 (05:39→18:22)
[2020-01-12] MEDS: Furosemide 40 MG/4 ML VIAL SLOW IVP SCH ×2 (05:39→14:55)
[2020-01-12] MEDS: HYDROcodone/Acetaminophen 10/325 mg Tablet PO PRN ×3 (05:39→19:28)
[2020-01-12 05:43] LABS: #Lymphocytes 0.5 thou/uL (1.20-3.40); #Monocytes 0.2 thou/uL (0.11-0.59); #Neutrophils 5.1 thou/uL (1.40-6.50); %Eosinophils 0.2 % (0.0-10.0); %Monocytes 3.6 % (0.0-10.0); %Neutrophils 87.2 % (42.0-75.0); Hemoglobin 9.4 g/dL (12.0-16.0); Mean Corpuscular HGB CONC 33.2 g/dL (32.0-36.0); Mean Corpuscular Hemoglobin 29.9 pg (27.0-31.0); Mean Platelet Volume 7.9 fL (7.4-10.4); Platelet Count 188 thou/uL (130-400); RBC Distribution Width 12.1 % (11.5-14.5); Red Blood Cell (RBC) Count 3.15 mill/uL (4.20-5.40); White Blood Cell (WBC) Count 5.8 thou/uL (4.8-10.8)
[2020-01-12 06:04] LABS: Anion Gap 17 mmol/L (10-20); BUN (Urea Nitrogen) 41 mg/dL (9.8-20.1); Calc. Creatinine Clearance 30 mL/min (70-130); Calcium 8.6 mg/dL (7.8-10.44); Carbon Dioxide 22 mmol/L (23-31); Chloride 99 mmol/L (98-107); Estimated GFR-MDRD 24; Glucose 224 mg/dL (80-115); Potassium 3.8 mmol/L (3.5-5.1); Sodium 134 mmol/L (136-145)
[2020-01-12] MEDS: Doxycycline 100 MG CAP PO SCH ×2 (09:53→20:54)
[2020-01-12] MEDS: Enoxaparin Sodium 30 MG/0.3 ML SYRINGE SC SCH (09:54)
[2020-01-12] MEDS: cefTRIAXone\\ROCEPHIN 1 GM in Sodium Chloride 0.9% 100 ML IVPB SCH (16:40)
--- NOTE | 2020-01-12 17:48 | PDOC.HOSPP ---
- Subjective Encounter Date: 01/12/20 Encounter Time: 11:00 Subjective: Patient seen for follow-up regarding COPD exacerbation. She feels better today. Diuresing well. - Objective Vital Signs & Weight: Vital Signs (12 hours) Temp Pulse Resp BP BP Pulse Ox 01/12/20 16:55 97.4 F L 73 20 95/56 L 99 01/12/20 12:42 86 16 100 01/12/20 11:14 97.6 F 72 20 126/67 98 01/12/20 09:45 95 01/12/20 07:22 97.8 F 69 20 123/68 95 01/12/20 07:10 72 16 98 Weight Weight 154 lb 15.759 oz Result Diagrams: 01/12/20 05:23 01/12/20 05:23 Additional Labs: I reviewed patient's labs and MAR Hospitalist ROS - Review of Systems Respiratory: reports: cough, dry, shortness of breath, SOB with excertion. denies: hemoptysis, pleuritic pain, sputum, wheezing Cardiovascular: denies: chest pain, palpitations, orthopnea, paroxysmal noc. dyspnea, edema, light headedness - Medication Medications: Active Medications Generic Name Dose Route Start Last Admin Trade Name Freq PRN Reason Stop Dose Admin Hydrocodone Bitart/Acetaminophen 1 tab 01/11/20 21:45 01/12/20 12:11 Hydrocodone/Acetaminophen 10/325 Mg Tablet PO 1 tab Q6HR PRN Administration Pain Albuterol/Ipratropium 3 ml 01/11/20 19:00 01/12/20 12:42 Ipratropium/Albuterol Sulfate 3 Ml Neb NEB 3 ml [id number] GUILLE Administration Doxycycline Hyclate 100 mg 01/11/20 21:00 01/12/20 09:53 Doxycycline 100 Mg Cap PO 100 mg BID GUILLE Administration Enoxaparin Sodium 30 mg 01/12/20 09:00 01/12/20 09:54 Enoxaparin Sodium 30 Mg/0.3 Ml Syringe SC 30 mg 0900 GUILLE Administration Furosemide 40 mg 01/12/20 06:00 01/12/20 14:55 Furosemide 40 Mg/4 Ml Vial SLOW IVP 40 mg 0600,1400 GUILLE Administration Ceftriaxone Sodium 1 gm/ 100 mls @ 200 mls/hr 01/11/20 16:00 01/12/20 16:40 Sodium Chloride IVPB 100 mls Q24HR GUILLE Administration Methylprednisolone Sodium Succinate 40 mg 01/11/20 18:00 01/12/20 12:11 Methylprednisolone Sod Succ 40 Mg Vial IVP 40 mg Q6HR GUILLE Administration Nicotine 14 mg 01/11/20 21:00 01/11/20 20:17 Nicotine 14 Mg Patch TD 14 mg Q24HR GUILLE Administration - Exam General Appearance: awake alert Eye: anicteric sclera ENT: moist mucosa Neck: supple, JVD Heart: RRR, no rubs Respiratory: wheezes Gastrointestinal: soft, non-tender Extremities: no edema Skin: no rashes Psychiatric: normal affect, normal behavior Hosp A/P (1) COPD exacerbation Code(s): J44.1 - CHRONIC OBSTRUCTIVE PULMONARY DISEASE W (ACUTE) EXACERBATION Status: Acute (2) Hyponatremia Code(s): E87.1 - HYPO-OSMOLALITY AND HYPONATREMIA Status: Acute (3) Acute exacerbation of congestive heart failure Code(s): I50.9 - HEART FAILURE, UNSPECIFIED Status: Suspected (4) GERD (gastroesophageal reflux disease) Code(s): K21.9 - GASTRO-ESOPHAGEAL REFLUX DISEASE WITHOUT ESOPHAGITIS Status: Chronic Qualifiers: Esophagitis presence: esophagitis presence not specified Qualified Code(s): K21.9 - Gastro-esophageal reflux disease without esophagitis (5) Dyslipidemia Code(s): E78.5 - HYPERLIPIDEMIA, UNSPECIFIED Status: Chronic (6) Chronic kidney disease, stage IV (severe) Code(s): N18.4 - CHRONIC KIDNEY DISEASE, STAGE 4 (SEVERE) Status: Chronic (7) Hypertension Code(s): I10 - ESSENTIAL (PRIMARY) HYPERTENSION Status: Chronic Qualifiers: Hypertension type: essential hypertension Qualified Code(s): I10 - Essential (primary) hypertension - Plan - Plan Patient is improving with oxygen, steroids, bronchodilators and antibiotics (IV ceftriaxone and oral doxycycline). Pulmonology service has been consulted. Continue IV furosemide at decreased dose of 20 mg daily. Check 2D echocardiogram to evaluate for systolic and diastolic heart failure. Creatinine is worse today but appears to be around her baseline. Hyponatremia mild, likely asymptomatic. COVID-19 test negative. Patient's home medications have been resumed.
[2020-01-12] MEDS: Benzonatate 100 MG CAP PO PRN (19:28)
[2020-01-12] MEDS: Atorvastatin Calcium 40 MG TAB PO SCH (20:54)
[2020-01-12] MEDS: Aggrenox 200-25mg CAP PO SCH (20:54)
[2020-01-12] MEDS: Nicotine 14 MG PATCH TD SCH (20:55)
[2020-01-12] MEDS: hydrOXYzine 25 MG TAB PO PRN (20:55)
[2020-01-13] MEDS: methylPREDNISolone Sod Succ 40 MG VIAL IVP SCH ×5 (00:16→23:58)
[2020-01-13 05:43] LABS: #Lymphocytes 0.5 thou/uL (1.20-3.40); #Monocytes 0.3 thou/uL (0.11-0.59); #Neutrophils 6.5 thou/uL (1.40-6.50); %Basophils 0.3 % (0.0-1.0); %Lymphocytes 6.4 % (21.0-51.0); %Monocytes 3.6 % (0.0-10.0); %Neutrophils 89.8 % (42.0-75.0); Hemoglobin 8.9 g/dL (12.0-16.0); Mean Corpuscular HGB CONC 33.6 g/dL (32.0-36.0); Mean Corpuscular Hemoglobin 30.2 pg (27.0-31.0); Mean Corpuscular Volume 89.9 fL (78.0-98.0); Mean Platelet Volume 8.5 fL (7.4-10.4); Platelet Count 186 thou/uL (130-400); RBC Distribution Width 11.9 % (11.5-14.5); Red Blood Cell (RBC) Count 2.94 mill/uL (4.20-5.40); White Blood Cell (WBC) Count 7.3 thou/uL (4.8-10.8)
[2020-01-13] MEDS: HYDROcodone/Acetaminophen 10/325 mg Tablet PO PRN ×3 (05:53→21:48)
[2020-01-13 06:02] LABS: Anion Gap 16 mmol/L (10-20); BUN (Urea Nitrogen) 56 mg/dL (9.8-20.1); Calc. Creatinine Clearance 26 mL/min (70-130); Calcium 8.6 mg/dL (7.8-10.44); Carbon Dioxide 27 mmol/L (23-31); Chloride 96 mmol/L (98-107); Estimated GFR-MDRD 21; Glucose 237 mg/dL (80-115); Potassium 3.5 mmol/L (3.5-5.1); Sodium 135 mmol/L (136-145)
[2020-01-13] MEDS: Doxycycline 100 MG CAP PO SCH ×2 (08:22→21:31)
[2020-01-13] MEDS: guaiFENesin ER 600 MG TAB PO SCH (08:22)
[2020-01-13] MEDS: Enoxaparin Sodium 30 MG/0.3 ML SYRINGE SC SCH (08:24)
[2020-01-13] MEDS: Aggrenox 200-25mg CAP PO SCH ×2 (08:24→21:31)
[2020-01-13] MEDS: Furosemide 20 MG/2 ML VIAL SLOW IVP SCH (08:25)
[2020-01-13] MEDS ORDERED: Escitalopram Oxalate 20 mg Tablet PO SCH (09:00)
[2020-01-13] MEDS ORDERED: Sodium Chloride 0.65% Nasal 44 ML BOT EA NARE PRN (13:29)
[2020-01-13] MEDS ORDERED: Zolpidem Tartrate 5 MG TAB PO PRN (13:39)
[2020-01-13] MEDS ORDERED: Melatonin 3 MG TAB PO PRN (13:39)
--- NOTE | 2020-01-13 13:48 | PDOC.HOSPP ---
- Subjective Encounter Date: 01/13/20 Encounter Time: 13:30 Subjective: Patient seen and examined for COPD exacerbation. Shortness of breath and wheezing improving. Mild cough with thick yellowish phlegm. No fever or chills - Objective Vital Signs & Weight: Vital Signs (12 hours) Temp Pulse Resp BP BP Pulse Ox 01/13/20 08:00 99 01/13/20 07:36 88 14 01/13/20 07:33 97.9 F 72 20 111/65 99 01/13/20 05:00 97.5 F L 89 18 131/69 99 Weight Weight 156 lb 15.506 oz I&O: 01/12/20 01/13/20 01/14/20 06:59 06:59 06:59 Intake Total 1970 320 Output Total 500 Balance 1470 320 Result Diagrams: 01/13/20 05:21 01/13/20 05:21 Radiology Reviewed by me: Yes (Chest x-rayno infiltrate) Hospitalist ROS - Review of Systems Cardiovascular: denies: chest pain, palpitations, orthopnea, paroxysmal noc. dyspnea, edema, light headedness, other Gastrointestinal: denies: nausea, vomiting, abdominal pain, diarrhea, constipation, melena, hematochezia, other - Medication Medications: Active Medications Generic Name Dose Route Start Last Admin Trade Name Freq PRN Reason Stop Dose Admin Hydrocodone Bitart/Acetaminophen 1 tab 01/11/20 21:45 01/13/20 05:53 Hydrocodone/Acetaminophen 10/325 Mg Tablet PO 1 tab Q6HR PRN Administration Pain Albuterol/Ipratropium 3 ml 01/11/20 19:00 01/13/20 07:36 Ipratropium/Albuterol Sulfate 3 Ml Neb NEB 3 ml [id number] GUILLE Administration Atorvastatin Calcium 80 mg 01/12/20 21:00 01/12/20 20:54 Atorvastatin Calcium 40 Mg Tab PO 80 mg HS GUILLE Administration Benzonatate 100 mg 01/12/20 11:56 01/12/20 19:28 Benzonatate 100 Mg Cap PO 100 mg TID PRN Administration Cough Dipyridamole/Aspirin 1 cap 01/12/20 21:00 01/13/20 08:24 Aggrenox 200-25mg Cap PO 1 cap BID GUILLE Administration Doxycycline Hyclate 100 mg 01/11/20 21:00 01/13/20 08:22 Doxycycline 100 Mg Cap PO 100 mg BID GUILLE Administration Enoxaparin Sodium 30 mg 01/12/20 09:00 01/13/20 08:24 Enoxaparin Sodium 30 Mg/0.3 Ml Syringe SC 30 mg 0900 GUILLE Administration Furosemide 20 mg 01/13/20 09:00 01/13/20 08:25 Furosemide 20 Mg/2 Ml Vial SLOW IVP 20 mg DAILY GUILLE Administration Guaifenesin 1,200 mg 01/13/20 09:00 01/13/20 08:22 Guaifenesin Er 600 Mg Tab PO 1,200 mg DAILY GUILLE Administration Hydroxyzine HCl 50 mg 01/12/20 11:56 01/12/20 20:55 Hydroxyzine 25 Mg Tab PO 50 mg Q6H PRN Administration Anxiety Ceftriaxone Sodium 1 gm/ 100 mls @ 200 mls/hr 01/11/20 16:00 01/12/20 16:40 Sodium Chloride IVPB 100 mls Q24HR GUILLE Administration Methylprednisolone Sodium Succinate 40 mg 01/11/20 18:00 01/13/20 12:20 Methylprednisolone Sod Succ 40 Mg Vial IVP 40 mg Q6HR GUILLE Administration Metoprolol Succinate 50 mg 01/13/20 09:00 01/13/20 08:23 Metoprolol Succinate Xl 50 Mg Tab PO 50 mg DAILY GUILLE Administration Nicotine 14 mg 01/11/20 21:00 01/12/20 20:55 Nicotine 14 Mg Patch TD 14 mg Q24HR GUILLE Administration Pantoprazole Sodium 40 mg 01/13/20 09:00 01/13/20 08:22 Pantoprazole 40 Mg Tab PO 40 mg DAILY GUILLE Administration - Exam General - other findings: Mild respiratory distress Heart: RRR, no gallops, no rubs Respiratory: no rales, rhonchi, wheezes (Scattered) Gastrointestinal: soft, non-distended, normal bowel sounds Extremities: no cyanosis, no clubbing Neurological: no new deficit Psychiatric: A&O x 3 Hosp A/P (1) General weakness Code(s): R53.1 - WEAKNESS Status: Acute (2) COPD exacerbation Code(s): J44.1 - CHRONIC OBSTRUCTIVE PULMONARY DISEASE W (ACUTE) EXACERBATION Status: Acute (3) Chronic kidney disease, stage IV (severe) Code(s): N18.4 - CHRONIC KIDNEY DISEASE, STAGE 4 (SEVERE) Status: Chronic (4) GERD (gastroesophageal reflux disease) Code(s): K21.9 - GASTRO-ESOPHAGEAL REFLUX DISEASE WITHOUT ESOPHAGITIS Status: Chronic Qualifiers: Esophagitis presence: esophagitis presence not specified Qualified Code(s): K21.9 - Gastro-esophageal reflux disease without esophagitis (5) Generalized anxiety disorder Code(s): F41.1 - GENERALIZED ANXIETY DISORDER Status: Chronic (6) Hypertension Code(s): I10 - ESSENTIAL (PRIMARY) HYPERTENSION Status: Chronic Qualifiers: Hypertension type: essential hypertension Qualified Code(s): I10 - Essenti al (primary) hypertension (7) Tobacco dependence Code(s): F17.200 - NICOTINE DEPENDENCE, UNSPECIFIED, UNCOMPLICATED Status: Chronic - Plan Symptomatically patient is gradually improving. Will wean oxygen to maintain saturations more than 94%. Continue IV steroids with nebulizer treatment, IV ceftriaxone and oral doxycycline. Change chlordiazepoxide dose to 20 mg daily which she takes it at home. Reduce Lexapro to 20 mg daily per patient request. We will also add Ambien as neededpatient takes with on an as-needed basis. Recheck labs in a.m. Continue other medications as above. Counseled on tobacco cessation
[2020-01-13] MEDS: cefTRIAXone\\ROCEPHIN 1 GM in Sodium Chloride 0.9% 100 ML IVPB SCH (15:43)
[2020-01-13] MEDS: Benzonatate 100 MG CAP PO PRN (15:49)
[2020-01-13] MEDS: Calcium Carbonate 600 MG + Vit D TAB PO SCH (18:43)
--- NOTE | 2020-01-13 19:12 | CON ---
DATE OF CONSULTATION: 01/13/2020 HISTORY OF PRESENT ILLNESS: Ms. Logan is a 64-year-old female with chronic obstructive pulmonary disease. She had been seen in my office quite some time. She is in the hospital for complaints of shortness of breath starting early in the week. Since she had been seen in the office when she called for a prescription refill, we declined it and asked her to either come to the office or go to the emergency room. She presented to the emergency room. She has a long history of being hospitalized here for COPD exacerbations. She also has a long history of not wanting to go home once she gets here. She tells me she recently had a stroke and was in rehab and has been home for a little while. PAST MEDICAL HISTORY: 1. COPD. 2. History of ongoing tobacco use. 3. History of heavy alcohol use in the past. 4. 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 5. History of hypertension. 6. Chronic kidney disease. 7. Diabetes. 8. Obesity. 9. History of back surgery. 10. Status post hysterectomy. 11. History of bladder suspension. 12. History of small bowel obstruction leading to a laparotomy. ALLERGIES: SHE REPORTS ALLERGIES TO: 1. SULFA. 2. CLINDAMYCIN. 3. METFORMIN. 4. NAPROSYN. 5. TRAMADOL. MEDICATIONS: Medications have been reviewed. REVIEW OF SYSTEMS: A 10-point review of systems is otherwise negative. She says she is feeling better. PHYSICAL EXAMINATION: VITAL SIGNS: She is afebrile. Heart rate is 72, respiratory rate is 20, oximetry is 99%, blood pressure is 111/65. HEENT: Pupils are equal. Sclerae are anicteric. NECK: Supple. No lymphadenopathy. LUNGS: Remarkable for end-expiratory wheeze. HEART: Regular rhythm. S1 and S2 are normal. ABDOMEN: Soft and nontender. EXTREMITIES: Without clubbing, cyanosis, or edema. LABORATORY DATA: White count 7.3, hemoglobin 8.9, platelets 186. Sodium 135, potassium 3.5, chloride 96, bicarb 27, BUN 56, creatinine 2.35. IMPRESSION AND PLAN: 1. Chronic obstructive pulmonary disease exacerbation. 2. Gkvpn-jy-ykxvadz kidney disease. 3. Diabetes. 4. Hypertension. 5. Long history of medical noncompliance intermittently. 6. History of ongoing tobacco use. 7. History of recent cerebrovascular accident. 8. History of heavy alcohol use in the past. We discussed smoking cessation again. I have this discussion with her every time I see here. She appears to be clinically improving. Hopefully, she will be a candidate for discharge in 24 to 48 hours. This is a 50 min consult with greater than 50% of the time spent on the unit with coordination of care. Job ID: [id number]
[2020-01-13] MEDS: Nicotine 14 MG PATCH TD SCH (21:31)
[2020-01-13] MEDS: Atorvastatin Calcium 40 MG TAB PO SCH (21:31)
[2020-01-14 05:51] LABS: #Lymphocytes 0.8 thou/uL (1.20-3.40); #Monocytes 0.4 thou/uL (0.11-0.59); %Basophils 0.2 % (0.0-1.0); %Eosinophils 0.1 % (0.0-10.0); %Lymphocytes 9.1 % (21.0-51.0); %Monocytes 5.2 % (0.0-10.0); %Neutrophils 85.5 % (42.0-75.0); Hemoglobin 9.6 g/dL (12.0-16.0); Mean Corpuscular HGB CONC 33.4 g/dL (32.0-36.0); Mean Corpuscular Hemoglobin 30.3 pg (27.0-31.0); Mean Corpuscular Volume 90.9 fL (78.0-98.0); Mean Platelet Volume 8.5 fL (7.4-10.4); Platelet Count 231 thou/uL (130-400); Red Blood Cell (RBC) Count 3.17 mill/uL (4.20-5.40); White Blood Cell (WBC) Count 8.2 thou/uL (4.8-10.8)
[2020-01-14 06:22] LABS: Anion Gap 17 mmol/L (10-20); BUN (Urea Nitrogen) 70 mg/dL (9.8-20.1); Calc. Creatinine Clearance 27 mL/min (70-130); Calcium 8.7 mg/dL (7.8-10.44); Carbon Dioxide 23 mmol/L (23-31); Chloride 97 mmol/L (98-107); Estimated GFR-MDRD 21; Glucose 168 mg/dL (80-115); Magnesium 1.4 mg/dL (1.6-2.6); Potassium 3.7 mmol/L (3.5-5.1); Sodium 133 mmol/L (136-145)
[2020-01-14] MEDS: methylPREDNISolone Sod Succ 40 MG VIAL IVP SCH ×2 (06:39→11:34)
[2020-01-14] MEDS: Furosemide 20 MG/2 ML VIAL SLOW IVP SCH (08:37)
[2020-01-14] MEDS: Escitalopram Oxalate 20 mg Tablet PO SCH (08:37)
[2020-01-14] MEDS: Calcium Carbonate 600 MG + Vit D TAB PO SCH ×2 (08:37→16:01)
[2020-01-14] MEDS: guaiFENesin ER 600 MG TAB PO SCH (08:37)
[2020-01-14] MEDS: Doxycycline 100 MG CAP PO SCH ×2 (08:37→20:18)
[2020-01-14] MEDS: Aggrenox 200-25mg CAP PO SCH ×2 (08:37→20:36)
[2020-01-14] MEDS: Enoxaparin Sodium 30 MG/0.3 ML SYRINGE SC SCH (08:38)
[2020-01-14] MEDS ORDERED: Magnesium 2 GM/50 ML 2 GM in Premix Bag 1 BAG IVPB SCH (09:45)
[2020-01-14] MEDS: HYDROcodone/Acetaminophen 10/325 mg Tablet PO PRN ×2 (14:08→20:19)
--- NOTE | 2020-01-14 14:47 | PRG ---
DATE OF SERVICE: 01/14/2020 SUBJECTIVE: Joseline Logan is feeling better. OBJECTIVE: VITAL SIGNS: She is afebrile. Heart rate is in the 70s, respiratory rate 16, oximetry is 94, and blood pressure 152/69. GENERAL: She is asleep when I walked in at 10 o'clock this morning. LUNGS: Clear. I awakened her. She said she was feeling better. LABORATORY DATA: White count 8.2, hemoglobin 9.6, and platelets 231. Sodium 133, potassium 3.7, chloride 97, bicarb 22, BUN 70, and creatinine 3.34. Intake and outputs positive 560. IMPRESSION: 1. Chronic obstructive pulmonary disease exacerbation. 2. Sgmfp-py-uypftfo kidney disease. 3. Ongoing tobacco use. I explained to her that her smoking increases chances of her having a devastating stroke chronic obstructive pulmonary disease. She is a candidate to switch to p.o. medications and in my opinion, could be discharged in the morning if she remains stable. Job ID: [id number]
[2020-01-14] MEDS: Atorvastatin Calcium 40 MG TAB PO SCH (20:18)
--- NOTE | 2020-01-14 20:22 | PDOC.HOSPP ---
- Subjective Encounter Date: 01/14/20 Encounter Time: 14:15 Subjective: Patient seen and examined for COPD exacerbation. Shortness of breath improving. Still gets short of breath on [id number] exertion. Room air sat was 91%. Denies any fever or chills. Mild non-productive cough. - Objective Vital Signs & Weight: Vital Signs (12 hours) Temp Pulse Resp BP Pulse Ox Pulse Ox Pulse Ox 01/14/20 19:53 98 F 82 20 134/71 95 01/14/20 17:55 73 17 93 L 01/14/20 16:20 97 91 L 01/14/20 16:10 93 L 01/14/20 16:03 91 L 01/14/20 13:08 72 16 01/14/20 11:41 67 94 L 01/14/20 08:35 96 Weight Weight 158 lb 1.143 oz I&O: 01/13/20 01/14/20 01/15/20 06:59 06:59 06:59 Intake Total 1970 960 940 Output Total 500 400 500 Balance 1470 560 440 Result Diagrams: 01/14/20 05:24 01/14/20 05:24 Hospitalist ROS - Review of Systems Cardiovascular: denies: chest pain, palpitations, orthopnea, paroxysmal noc. dyspnea, edema, light headedness, other Gastrointestinal: denies: nausea, vomiting, abdominal pain, diarrhea, constipation, melena, hematochezia, other - Medication Medications: Active Medications Generic Name Dose Route Start Last Admin Trade Name Freq PRN Reason Stop Dose Admin Hydrocodone Bitart/Acetaminophen 1 tab 01/11/20 21:45 01/14/20 14:08 Hydrocodone/Acetaminophen 10/325 Mg Tablet PO 1 tab Q6HR PRN Administration Pain Albuterol/Ipratropium 3 ml 01/11/20 19:00 01/14/20 17:55 Ipratropium/Albuterol Sulfate 3 Ml Neb NEB 3 ml [id number] GUILLE Administration Atorvastatin Calcium 80 mg 01/12/20 21:00 01/13/20 21:31 Atorvastatin Calcium 40 Mg Tab PO 80 mg HS GUILLE Administration Benzonatate 100 mg 01/12/20 11:56 01/13/20 15:49 Benzonatate 100 Mg Cap PO 100 mg TID PRN Administration Cough Calcium/Vitamin D 1 tab 01/13/20 17:00 01/14/20 16:01 Calcium Carbonate 600 Mg + Vit D Tab PO 1 tab BID-WM GUILLE Administration Chlordiazepoxide HCl 20 mg 01/14/20 09:00 01/14/20 08:38 Chlordiazepoxide Hcl 10 Mg Cap PO 20 mg DAILY GUILLE Administration Dipyridamole/Aspirin 1 cap 01/12/20 21:00 01/14/20 08:37 Aggrenox 200-25mg Cap PO 1 cap BID GUILLE Administration Doxycycline Hyclate 100 mg 01/11/20 21:00 01/14/20 08:37 Doxycycline 100 Mg Cap PO 100 mg BID GUILLE Administration Enoxaparin Sodium 30 mg 01/12/20 09:00 01/14/20 08:38 Enoxaparin Sodium 30 Mg/0.3 Ml Syringe SC 30 mg 899 GUILLE Administration Escitalopram Oxalate 20 mg 01/14/20 09:00 01/14/20 08:37 Escitalopram Oxalate 20 Mg Tablet PO 20 mg DAILY GUILLE Administration Furosemide 20 mg 01/13/20 09:00 01/14/20 08:37 Furosemide 20 Mg/2 Ml Vial SLOW IVP 20 mg DAILY GUILLE Administration Guaifenesin 1,200 mg 01/13/20 09:00 01/14/20 08:37 Guaifenesin Er 600 Mg Tab PO 1,200 mg DAILY GUILLE Administration Hydroxyzine HCl 50 mg 01/12/20 11:56 01/12/20 20:55 Hydroxyzine 25 Mg Tab PO 50 mg Q6H PRN Administration Anxiety Metoprolol Succinate 50 mg 01/13/20 09:00 01/14/20 08:37 Metoprolol Succinate Xl 50 Mg Tab PO 50 mg DAILY GUILLE Administration Nicotine 14 mg 01/11/20 21:00 01/13/20 21:31 Nicotine 14 Mg Patch TD 14 mg Q24HR GUILLE Administration Pantoprazole Sodium 40 mg 01/13/20 09:00 01/14/20 08:37 Pantoprazole 40 Mg Tab PO 40 mg DAILY GUILLE Administration - Exam General Appearance: NAD Neck: supple, no JVD Heart: no gallops, no rubs Respiratory: no wheezes, rhonchi Gastrointestinal: soft, non-distended Extremities: no clubbing Hosp A/P (1) General weakness Code(s): R53.1 - WEAKNESS Status: Acute (2) COPD exacerbation Code(s): J44.1 - CHRONIC OBSTRUCTIVE PULMONARY DISEASE W (ACUTE) EXACERBATION Status: Acute (3) Chronic kidney disease, stage IV (severe) Code(s): N18.4 - CHRONIC KIDNEY DISEASE, STAGE 4 (SEVERE) Status: Chronic (4) GERD (gastroesophageal reflux disease) Code(s): K21.9 - GASTRO-ESOPHAGEAL REFLUX DISEASE WITHOUT ESOPHAGITIS Status: Chronic Qualifiers: Esophagitis presence: esophagitis presence not specified Qualified Code(s): K21.9 - Gastro-esophageal reflux disease without esophagitis (5) Generalized anxiety disorder Code(s): F41.1 - GENERALIZED ANXIETY DISORDER Status: Chronic (6) Hypertension Code(s): I10 - ESSENTIAL (PRIMARY) HYPERTENSION Status: Chronic Qualifiers: Hypertension type: essential hypertension Qualified Code(s): I10 - Essential (primary) hypertension (7) Tobacco dependence Code(s): F17.200 - NICOTINE DEPENDENCE, UNSPECIFIED, UNCOMPLICATED Status: Chronic (8) Hypomagnesemia Code(s): E83.42 - HYPOMAGNESEMIA Status: Acute - Plan DVT proph w/SCDs 01/13 Replace magnesium. Continue oral doxycycline. IV steroids changed to p.o. prednisone. Wean O2 as tolerated. Discontinue IV Lasix. Recheck magnesium in a.m. continue other medications as above 01/12 Symptomatically patient is gradually improving. Will wean oxygen to maintain saturations more than 94%. Continue IV steroids with nebulizer treatment, IV ceftriaxone and oral doxycycline. Change chlordiazepoxide dose to 20 mg daily which she takes it at home. Reduce Lexapro to 20 mg daily per patient request. We will also add Ambien as neededpatient takes with on an as-needed basis. Recheck labs in a.m. Continue other medications as above. Counseled on tobacco cessation
[2020-01-14] MEDS: Nicotine 14 MG PATCH TD SCH (23:21)
[2020-01-15] MEDS: hydrOXYzine 25 MG TAB PO PRN ×2 (00:16→23:54)
[2020-01-15] MEDS: HYDROcodone/Acetaminophen 10/325 mg Tablet PO PRN ×2 (06:06→15:41)
[2020-01-15 07:21] LABS: Anion Gap 14 mmol/L (10-20); BUN (Urea Nitrogen) 77 mg/dL (9.8-20.1); Calc. Creatinine Clearance 29 mL/min (70-130); Calcium 8.6 mg/dL (7.8-10.44); Carbon Dioxide 26 mmol/L (23-31); Chloride 101 mmol/L (98-107); Estimated GFR-MDRD 23; Glucose 99 mg/dL (80-115); Magnesium 1.9 mg/dL (1.6-2.6); Potassium 3.9 mmol/L (3.5-5.1); Sodium 137 mmol/L (136-145)
[2020-01-15] MEDS: Doxycycline 100 MG CAP PO SCH ×2 (09:12→21:48)
[2020-01-15] MEDS: Calcium Carbonate 600 MG + Vit D TAB PO SCH ×2 (09:13→17:20)
[2020-01-15] MEDS: predniSONE 20 MG TAB PO SCH (09:13)
[2020-01-15] MEDS: guaiFENesin ER 600 MG TAB PO SCH (09:14)
[2020-01-15] MEDS: Escitalopram Oxalate 20 mg Tablet PO SCH (09:14)
[2020-01-15] MEDS: Aggrenox 200-25mg CAP PO SCH ×2 (09:15→21:49)
[2020-01-15] MEDS: Enoxaparin Sodium 30 MG/0.3 ML SYRINGE SC SCH (09:15)
--- NOTE | 2020-01-15 18:36 | PDOC.HOSPP ---
- Subjective Encounter Date: 01/15/20 Encounter Time: 08:00 Subjective: Patient seen and examined for COPD exacerbation. Shortness of breath improving. Feels generally weak and fatigued. - Objective Vital Signs & Weight: Vital Signs (12 hours) Temp Pulse Resp BP Pulse Ox 01/15/20 17:00 92 L 01/15/20 15:54 93 L 01/15/20 11:25 97.8 F 68 18 138/84 01/15/20 08:00 97 01/15/20 07:35 97.7 F 82 20 157/76 H 99 01/15/20 07:14 75 16 94 L Weight Weight 158 lb 1.143 oz I&O: 01/14/20 01/15/20 01/16/20 06:59 06:59 06:59 Intake Total 397 847 3177 Output Total 400 500 Balance 479 085 8363 Result Diagrams: 01/14/20 05:24 01/15/20 06:54 Additional Labs: Accuchecks 01/13/20 16:23 POC Glucose 150 H Hospitalist ROS - Review of Systems Respiratory: reports: cough, dry, shortness of breath, SOB with excertion. denies: hemoptysis, pleuritic pain, sputum, wheezing, other Cardiovascular: denies: chest pain, palpitations, orthopnea, paroxysmal noc. dyspnea, edema, light headedness, other - Medication Medications: Active Medications Generic Name Dose Route Start Last Admin Trade Name Freq PRN Reason Stop Dose Admin Hydrocodone Bitart/Acetaminophen 1 tab 01/11/20 21:45 01/15/20 15:41 Hydrocodone/Acetaminophen 10/325 Mg Tablet PO 1 tab Q6HR PRN Administration Pain Albuterol/Ipratropium 3 ml 01/11/20 19:00 01/15/20 14:43 Ipratropium/Albuterol Sulfate 3 Ml Neb NEB 3 ml [id number] GUILLE Administration Atorvastatin Calcium 80 mg 01/12/20 21:00 01/14/20 20:18 Atorvastatin Calcium 40 Mg Tab PO 80 mg HS GUILLE Administration Benzonatate 100 mg 01/12/20 11:56 01/13/20 15:49 Benzonatate 100 Mg Cap PO 100 mg TID PRN Administration Cough Calcium/Vitamin D 1 tab 01/13/20 17:00 01/15/20 17:20 Calcium Carbonate 600 Mg + Vit D Tab PO 1 tab BID-WM GUILLE Administration Chlordiazepoxide HCl 20 mg 01/14/20 09:00 01/15/20 09:13 Chlordiazepoxide Hcl 10 Mg Cap PO 20 mg DAILY GUILLE Administration Dipyridamole/Aspirin 1 cap 01/12/20 21:00 01/15/20 09:15 Aggrenox 200-25mg Cap PO 1 cap BID GUILLE Administration Doxycycline Hyclate 100 mg 01/11/20 21:00 01/15/20 09:12 Doxycycline 100 Mg Cap PO 100 mg BID GUILLE Administration Enoxaparin Sodium 30 mg 01/12/20 09:00 01/15/20 09:15 Enoxaparin Sodium 30 Mg/0.3 Ml Syringe SC 30 mg 899 [facility] Administration Escitalopram Oxalate 20 mg 01/14/20 09:00 01/15/20 09:14 Escitalopram Oxalate 20 Mg Tablet PO 20 mg DAILY GUILLE Administration Guaifenesin 1,200 mg 01/13/20 09:00 01/15/20 09:14 Guaifenesin Er 600 Mg Tab PO 1,200 mg DAILY GUILLE Administration Hydroxyzine HCl 50 mg 01/12/20 11:56 01/15/20 00:16 Hydroxyzine 25 Mg Tab PO 50 mg Q6H PRN Administration Anxiety Metoprolol Succinate 50 mg 01/13/20 09:00 01/15/20 09:14 Metoprolol Succinate Xl 50 Mg Tab PO 50 mg DAILY GUILLE Administration Nicotine 14 mg 01/11/20 21:00 01/14/20 23:21 Nicotine 14 Mg Patch TD 14 mg Q24HR GUILLE Administration Pantoprazole Sodium 40 mg 01/13/20 09:00 01/15/20 09:14 Pantoprazole 40 Mg Tab PO 40 mg DAILY GUILLE Administration Prednisone 40 mg 01/15/20 08:00 01/15/20 09:13 Prednisone 20 Mg Tab PO 40 mg QAM-WM GUILLE Administration - Exam General Appearance: NAD Neck: supple, no JVD Heart: RRR, no gallops Respiratory: rhonchi, wheezes (Scattered) Gastrointestinal: soft, non-distended, normal bowel sounds Extremities: no cyanosis Hosp A/P (1) General weakness Code(s): R53.1 - WEAKNESS Status: Acute (2) COPD exacerbation Code(s): J44.1 - CHRONIC OBSTRUCTIVE PULMONARY DISEASE W (ACUTE) EXACERBATION Status: Acute (3) Chronic kidney disease, stage IV (severe) Code(s): N18.4 - CHRONIC KIDNEY DISEASE, STAGE 4 (SEVERE) Status: Chronic (4) GERD (gastroesophageal reflux disease) Code(s): K21.9 - GASTRO-ESOPHAGEAL REFLUX DISEASE WITHOUT ESOPHAGITIS Status: Chronic Qualifiers: Esophagitis presence: esophagitis presence not specified Qualified Code(s): K21.9 - Gastro-esophageal reflux disease without esophagitis (5) Generalized anxiety disorder Code(s): F41.1 - GENERALIZED ANXIETY DISORDER Status: Chronic (6) Hypertension Code(s): I10 - ESSENTIAL (PRIMARY) HYPERTENSION Status: Chronic Qualifiers: Hypertension type: essential hypertension Qualified Code(s): I10 - Essential (primary) hypertension (7) Tobacco dependence Code(s): F17.200 - NICOTINE DEPENDENCE, UNSPECIFIED, UNCOMPLICATED Status: Chronic (8) Hypomagnesemia Code(s): E83.42 - HYPOMAGNESEMIA Status: Acute - Plan 01/14 Continue oral doxycycline with prednisone. Home O2 assessment. Continue home medications including Lexapro and chlordiazepoxide. Patient was extensively counseled on tobacco cessation. Wean O2 as tolerated. DC home once cleared by pulmonary. 01/13 Replace magnesium. Continue oral doxycycline. IV steroids changed to p.o. prednisone. Wean O2 as tolerated. Discontinue IV Lasix. Recheck magnesium in a.m. continue other medications as above 01/12 Symptomatically patient is gradually improving. Will wean oxygen to maintain saturations more than 94%. Continue IV steroids with nebulizer treatment, IV ceftriaxone and oral doxycycline. Change chlordiazepoxide dose to 20 mg daily which she takes it at home. Reduce Lexapro to 20 mg daily per patient request. We will also add Ambien as neededpatient takes with on an as-needed basis. Recheck labs in a.m. Continue other medications as above. Counseled on tobacco cessation
[2020-01-15] MEDS: Atorvastatin Calcium 40 MG TAB PO SCH (21:48)
[2020-01-15] MEDS: Nicotine 14 MG PATCH TD SCH (21:50)
[2020-01-16 07:40] VITALS: BP 156/73; TEMP 97.9
[2020-01-16] MEDS: predniSONE 20 MG TAB PO SCH (10:27)
[2020-01-16] MEDS: Escitalopram Oxalate 20 mg Tablet PO SCH (10:27)
[2020-01-16] MEDS: Calcium Carbonate 600 MG + Vit D TAB PO SCH ×2 (10:28→17:06)
[2020-01-16] MEDS: Aggrenox 200-25mg CAP PO SCH ×2 (10:28→21:02)
[2020-01-16] MEDS: guaiFENesin ER 600 MG TAB PO SCH (10:28)
[2020-01-16] MEDS: Enoxaparin Sodium 30 MG/0.3 ML SYRINGE SC SCH (10:30)
[2020-01-16] MEDS: Doxycycline 100 MG CAP PO SCH ×2 (10:30→21:02)
[2020-01-16] MEDS ORDERED: Saccharomyces boulardii 250 MG CAP PO SCH (10:30)
[2020-01-16] MEDS: HYDROcodone/Acetaminophen 10/325 mg Tablet PO PRN ×2 (10:42→17:09)
--- NOTE | 2020-01-16 13:51 | PQF ---
CLINICAL DOCUMENTATION CLARIFICATION FORM: Dear Dr. Elias Date: 01/16/2020 Please exercise your independent, professional judgment in responding to the clarification form. Clinical indicators are provided on the bottom of this form for your review. Please check appropriate box(es): HEART FAILURE: A. ACUITY [ ] Acute [ x ] Acute on Chronic [ ] Chronic B. TYPE: [ x ] Diastolic / HFpEF [ ] Systolic / HFrEF [ ] No CHF - diastolic dysfunction only [ ] Other diagnosis [ ] Unable to determine In addition, please specify: Present on Admission (POA): [ x ] Yes [ ] No [ ] Unable to determine For continuity of documentation, please document condition throughout progress notes and discharge summary. Thank You. To be completed by CDI/Coding staff for physician review: CLINICAL INDICATORS - SIGNS / SYMPTOMS / LABS / RESULTS AND LOCATION IN EMR *H&P 01/10 (Te) A/P: Acute exacerbation of congestive heart failure. Pts presentation appears to be a combination of COPD exacerbation and CHF exacerbation. She does not have any LE edema but does have jugular venous distention and endorses orthopnea. BNP is also elevated at 1023 *ECHO 01/12: EF visually estimated at 55-60% Left ventricular size is normal Impaired relaxation compatible with diastolic dysfunction. (reversed E/A ratio) RISKS FACTORS / RESULTS AND LOCATION IN EMR *H&P 01/11 (Te): PMH COPD; Chronic renal failure. A/P: HTN, CKD IV TREATMENTS / RESULTS AND LOCATION IN EMR *Echo 01/12 *Order 01/10: Lasix 40mg IVP now Order 01/10 -01/11: Lasix 40 mg slow IVP 0600, 1400 Order 01/11-01/13: Lasix 20 mg slow IVP daily Order 01/11: Toprol XL 50 mg po Daily Thank you, Tayler Spring RN, BSN [email or web address] This is a permanent part of the Medical Record [facility]
--- NOTE | 2020-01-16 20:47 | DIS ---
DATE OF ADMISSION: 01/11/2020 DATE OF DISCHARGE: 01/16/2020 DISCHARGE DISPOSITION: Home. FOLLOWUP: Follow up with primary care physician in 1 week. Follow up with Pulmonary, Dr. Sanford in 2 to 3 weeks. Follow up with primary casting cleaner in 2 to 3 weeks. DISCHARGE MEDICATIONS: 1. Doxycycline 100 mg b.i.d. for next 5 days. 2. Prednisone taper. All other home medications were left unchanged. The patient was seen and examined on the day of discharge. Denies any new complaints. Shortness of breath has significantly improved. The patient is ambulating in the hallway without any oxygen supplementation. BRIEF HOSPITAL COURSE: The patient is a 64-year-old female with COPD and diastolic heart failure, presented to the hospital with worsening shortness of breath. Please refer to the history and physical for further details. The patient was admitted to the hospital with a diagnosis of COPD with congestive heart failure exacerbation. Her symptoms improved with O2 supplementation, nebulizer treatment, steroids, antibiotics, as well as gentle diuretics. The patient was evaluated by Pulmonary, Dr. Sanford as well. She did not meet the criteria for home O2. On the day of discharge she had mild diarrhea. Her C. diff came back negative. She will continue oral steroids along with nebulizer treatment as outpatient. The patient has been cleared by consultants for discharge. FINAL DIAGNOSES: 1. Generalized weakness. 2. Chronic obstructive pulmonary disease exacerbation. 3. Rryaa-vm-brchsbh diastolic heart failure exacerbation. 4. Chronic kidney disease stage 4. 5. Gastroesophageal reflux disease. 6. Generalized anxiety disorder. 7. Hypertension. 8. Ongoing tobacco abuse. The patient was extensively counseled. 9. Hypomagnesemia. 10. History of cerebrovascular accident in October of 2019. 11. History of mitral valve prolapse. 12. Chronic anemia probably due to nutritional deficiency. 13. Hyponatremia. SIGNIFICANT LABS: 1. BNP on admission was 1024. 2. Creatinine at discharge was 2.15. 3. Sodium 133, at discharge was 137. 4. COVID-19 testing was negative. 5. Clostridium difficile was negative. 6. Chest x-ray showed mild pulmonary vascular congestion. 7. Echocardiogram showed ejection fraction 55% to 60% with diastolic dysfunction, mild aortic stenosis, mild mitral regurgitation and mild tricuspid regurgitation. 8. The patient understands the above plan of care. Job ID: [id number]
[2020-01-16] MEDS: Atorvastatin Calcium 40 MG TAB PO SCH (21:02)
[2020-01-16] MEDS: Nicotine 14 MG PATCH TD SCH (21:03)
[2020-01-17] MEDS ORDERED: Saccharomyces boulardii 250 MG CAP PO SCH (09:00)
== END 2020-01-16 20:00 | disposition home or self-care (01) | DRG 291 ==
LOC: ERS 13:26 → T4-B 15:40
PROVIDERS: ADMIT Internal Medicine; ATTEND Internal Medicine
DX: I13.0 Hypertensive heart and chronic kidney disease with heart failure and stage 1 through stage 4 chronic kidney disease, or unspecified chronic kidney disease (principal); I50.33 Acute on chronic diastolic (congestive) heart failure; J44.1 Chronic obstructive pulmonary disease with (acute) exacerbation; N18.4 Chronic kidney disease, stage 4 (severe); E87.1 Hypo-osmolality and hyponatremia; F41.9 Anxiety disorder, unspecified; F32.9 Major depressive disorder, single episode, unspecified; F17.210 Nicotine dependence, cigarettes, uncomplicated; K21.9 Gastro-esophageal reflux disease without esophagitis; E78.5 Hyperlipidemia, unspecified; Z88.1 Allergy status to other antibiotic agents; Z88.2 Allergy status to sulfonamides; Z88.8 Allergy status to other drugs, medicaments and biological substances; Z79.82 Long term (current) use of aspirin; Z79.899 Other long term (current) drug therapy; Z90.49 Acquired absence of other specified parts of digestive tract; Z90.710 Acquired absence of both cervix and uterus; Z20.828 Contact with and (suspected) exposure to other viral communicable diseases; E66.9 Obesity, unspecified; E11.22 Type 2 diabetes mellitus with diabetic chronic kidney disease; E83.42 Hypomagnesemia; F41.1 Generalized anxiety disorder; R19.7 Diarrhea, unspecified; D53.9 Nutritional anemia, unspecified
CPT/HCPCS: 36415; 36416; 71045; 80048; 80053; 83735; 83880; 84484; 85025; 87324; 87449; 93005; 93306; 94640; 96365; J0696; J1650; J1940; J2920; J3475; J3490; J7512; J7620; U0002

== ENCOUNTER 2020-02-24 22:49 | Emergency (ER) | payer MEDICARE, MEDICAID ==
--- NOTE | 2020-02-24 23:27 | RAD ---
XR Shoulder Lt 3 View STANDARD HISTORY: Injury, left shoulder pain FINDINGS: No dislocation is identified. There is a questionable fracture involving the greater tuberosity. No s ignificant displacement is seen.
[2020-02-25] MEDS ORDERED: Acetaminophen 500 MG TAB ONE (00:48)
== END 2020-02-25 00:47 | disposition home or self-care (01) ==
LOC: ERS 22:49
DX: S42.92XA Fracture of left shoulder girdle, part unspecified, initial encounter for closed fracture (principal); K21.9 Gastro-esophageal reflux disease without esophagitis; E78.5 Hyperlipidemia, unspecified; E78.00 Pure hypercholesterolemia, unspecified; J44.9 Chronic obstructive pulmonary disease, unspecified; F41.9 Anxiety disorder, unspecified; F32.9 Major depressive disorder, single episode, unspecified; Z79.899 Other long term (current) drug therapy; Z79.82 Long term (current) use of aspirin; Z86.73 Personal history of transient ischemic attack (TIA), and cerebral infarction without residual deficits; W01.0XXA Fall on same level from slipping, tripping and stumbling without subsequent striking against object, initial encounter

== ENCOUNTER 2020-07-01 12:45 | Observation (INO) | payer MEDICARE, MEDICAID ==
[2020-07-01 14:12] LABS: #Eosinphils 0.4 thou/uL (0.0-0.7); #Lymphocytes 1.8 thou/uL (1.20-3.40); #Monocytes 0.9 thou/uL (0.11-0.59); #Neutrophils 6.9 thou/uL (1.40-6.50); %Basophils 0.5 % (0.0-1.0); %Lymphocytes 18.3 % (21.0-51.0); %Neutrophils 68.3 % (42.0-75.0); Hemoglobin 9.1 g/dL (12.0-16.0); Mean Corpuscular Hemoglobin 29.4 pg (27.0-31.0); Mean Corpuscular Volume 88.9 fL (78.0-98.0); Mean Platelet Volume 7.1 fL (7.4-10.4); Platelet Count 274 thou/uL (130-400); RBC Distribution Width 12.3 % (11.5-14.5); White Blood Cell (WBC) Count 10.1 thou/uL (4.8-10.8)
[2020-07-01 14:19] LABS: INR-International Normal Ratio 0.9; PTT 32.9 sec (22.9-36.1); Prothrombin Time 12.8 sec (12.0-14.7)
[2020-07-01 14:31] LABS: ALT (SGPT) Less than 7 U/L (8-55); AST (SGOT) 9 U/L (5-34); Albumin 3.5 g/dL (3.4-4.8); Alkaline Phosphatase 112 U/L (40-110); Anion Gap 16 mmol/L (10-20); BUN (Urea Nitrogen) 42 mg/dL (9.8-20.1); Bilirubin, Total 0.4 mg/dL (0.2-1.2); Calc. Creatinine Clearance 0 mL/min (70-130); Calcium 8.4 mg/dL (7.8-10.44); Carbon Dioxide 22 mmol/L (23-31); Chloride 100 mmol/L (98-107); Glucose 120 mg/dL (80-115); Potassium 4.3 mmol/L (3.5-5.1); Protein, Total 6.5 g/dL (5.8-8.1); Sodium 134 mmol/L (136-145)
[2020-07-01 14:59] LABS: Bacteria/HPF 4+ HPF (None Seen); Bilirubin Negative (Negative); Blood, Urine 2+ (Negative); Clarity Extra Turbid (Clear); Glucose, Urine (Dipstick) Normal (Negative); Ketone, Urine Negative (Negative); Leukocyte 500 Leu/uL (Negative); Nitrite Negative (Negative); Protein, Urine (Dipstick) 70 mg/dL (Neg-Trace); RBC/HPF 21-50 HPF (0-3); Specific Gravity, Urine 1.011 (1.002-1.036); Squamous Epithelial 0-3 HPF (0-3); Urobilinogen Normal mg/dL (Less than 2); WBC/HPF Greater than 50 HPF (0-3)
[2020-07-01] MEDS ORDERED: hydrALAZINE 20 MG/ML VIAL SLOW IVP PRN (15:25)
[2020-07-01] MEDS ORDERED: Bisacodyl 5 MG TAB PO PRN (15:28)
[2020-07-01] MEDS ORDERED: cefTRIAXone\\ROCEPHIN 2 GM VIAL ONE (15:53)
[2020-07-01] MEDS ORDERED: Famotidine 20 MG TAB PO SCH (21:00)
[2020-07-01] MEDS ORDERED: Atorvastatin Calcium 40 MG TAB PO SCH (21:00)
[2020-07-01] MEDS ORDERED: Fluticasone Propionate HFA 44 MCG AER INH PRN (21:28)
[2020-07-01] MEDS ORDERED: Melatonin 3 MG TAB PO SCH (23:45)
[2020-07-02] MEDS ORDERED: Benzonatate 100 MG CAP PO PRN (00:34)
[2020-07-02 04:49] LABS: SARS-CoV-2 PCR by NAA Not Detected (NotDetected)
[2020-07-02 05:28] LABS: #Basophils 0.1 thou/uL (0.0-0.2); #Eosinphils 0.5 thou/uL (0.0-0.7); #Lymphocytes 2.3 thou/uL (1.20-3.40); #Monocytes 0.8 thou/uL (0.11-0.59); #Neutrophils 2.9 thou/uL (1.40-6.50); %Eosinophils 7.3 % (0.0-10.0); %Monocytes 11.7 % (0.0-10.0); %Neutrophils 45.1 % (42.0-75.0); Mean Corpuscular HGB CONC 32.3 g/dL (32.0-36.0); Mean Corpuscular Hemoglobin 29.1 pg (27.0-31.0); Mean Platelet Volume 7.6 fL (7.4-10.4); Platelet Count 225 thou/uL (130-400); RBC Distribution Width 12.4 % (11.5-14.5); Red Blood Cell (RBC) Count 2.74 mill/uL (4.20-5.40); White Blood Cell (WBC) Count 6.4 thou/uL (4.8-10.8)
[2020-07-02 05:49] LABS: Anion Gap 13 mmol/L (10-20); BUN (Urea Nitrogen) 39 mg/dL (9.8-20.1); Calc. Creatinine Clearance 0 mL/min (70-130); Calcium 8.4 mg/dL (7.8-10.44); Carbon Dioxide 23 mmol/L (23-31); Cardiac Risk 2.7 (Less than 4.5); Chloride 105 mmol/L (98-107); Cholesterol 118 mg/dl (< 200 Desired); Glucose 139 mg/dL (80-115); HDL Cholesterol 43 mg/dL (>60 Neg Risk); LDL Cholesterol, Calculated 57 mg/dL; Potassium 4.6 mmol/L (3.5-5.1); Sodium 136 mmol/L (136-145); Triglycerides 89 mg/dL (Less than 150)
[2020-07-02] MEDS ORDERED: cefTRIAXone\\ROCEPHIN 1 GM in Sodium Chloride 0.9% 100 ML IVPB SCH (08:00)
[2020-07-02] MEDS ORDERED: Lorazepam 2 MG/ML VIAL SLOW IVP SCH (08:45)
[2020-07-02] MEDS ORDERED: Enoxaparin Sodium 30 MG/0.3 ML SYRINGE SC SCH (09:00)
[2020-07-02] MEDS ORDERED: Aggrenox 200-25mg CAP PO SCH (09:00)
[2020-07-02] MEDS ORDERED: Aspirin 81 mg Enteric Coated Tablet PO SCH (09:00)
[2020-07-02] MEDS ORDERED: Folic Acid 1 MG TAB PO SCH (09:00)
[2020-07-02] MEDS ORDERED: Escitalopram Oxalate 20 mg Tablet PO SCH (09:00)
[2020-07-02] MEDS ORDERED: guaiFENesin ER 600 MG TAB PO SCH (09:00)
[2020-07-02] MEDS ORDERED: FLU VACC QS2020-21(65YR UP)/PF 240 MCG/0.7 ML SYRINGE IM ONE (09:00)
[2020-07-02] MEDS ORDERED: Montelukast Sodium 10 mg Tablet PO SCH (09:00)
[2020-07-02] MEDS: Oxybutynin 5 MG TAB PO SCH ×2 (09:22→16:54)
[2020-07-02 16:59] VITALS: BP 147/84; TEMP 97.3
[2020-07-02] MEDS ORDERED: Atorvastatin Calcium 40 MG TAB PO SCH (21:00)
== END 2020-07-02 18:41 | disposition home or self-care (01) ==
LOC: ERS 12:45 → 2SE 15:28
PROVIDERS: ADMIT Hospitalist; ATTEND Hospitalist
DX: R53.1 Weakness (principal); F17.210 Nicotine dependence, cigarettes, uncomplicated; J44.9 Chronic obstructive pulmonary disease, unspecified; F41.1 Generalized anxiety disorder; I69.334 Monoplegia of upper limb following cerebral infarction affecting left non-dominant side; K21.9 Gastro-esophageal reflux disease without esophagitis; E78.5 Hyperlipidemia, unspecified; M19.90 Unspecified osteoarthritis, unspecified site; F32.9 Major depressive disorder, single episode, unspecified; I65.21 Occlusion and stenosis of right carotid artery; I13.10 Hypertensive heart and chronic kidney disease without heart failure, with stage 1 through stage 4 chronic kidney disease, or unspecified chronic kidney disease; N18.9 Chronic kidney disease, unspecified; D63.1 Anemia in chronic kidney disease; E87.1 Hypo-osmolality and hyponatremia; E16.2 Hypoglycemia, unspecified; I08.1 Rheumatic disorders of both mitral and tricuspid valves; Z23 Encounter for immunization; Z79.899 Other long term (current) drug therapy; Z88.1 Allergy status to other antibiotic agents; Z88.2 Allergy status to sulfonamides; Z88.5 Allergy status to narcotic agent; Z88.6 Allergy status to analgesic agent; Z88.8 Allergy status to other drugs, medicaments and biological substances; Z20.822 Contact with and (suspected) exposure to COVID-19
CPT/HCPCS: 70450; 70551; 71045; 80048; 80053; 80061; 82962 ×2; 84484; 85025 ×2; 85610; 85730; 87077; 87086; 87186; 90662; 93005; 93306; 93880; 95712; 95819; 95957; 96361; 96372; 96374; 96375; 97139 ×2; 99285; G0008; G0378 ×3; U0003; U0005; 36415; 36416; 81003; 81015; 87635; 90471; 96365; J0696; J1650; J2060; J3490

== ENCOUNTER 2020-08-03 15:41 | Inpatient (IN) | payer MEDICARE, MEDICAID ==
[2020-08-03 16:43] LABS: Bilirubin Negative (Negative); Blood, Urine Trace (Negative); Clarity Turbid (Clear); Glucose, Urine (Dipstick) Normal (Negative); Ketone, Urine Negative (Negative); Leukocyte 500 Leu/uL (Negative); Nitrite Negative (Negative); Protein, Urine (Dipstick) 30 mg/dL (Neg-Trace); Specific Gravity, Urine 1.013 (1.002-1.036); Urobilinogen Normal mg/dL (Less than 2)
[2020-08-03 16:49] LABS: #Eosinphils 0.4 thou/uL (0.0-0.7); #Monocytes 0.6 thou/uL (0.11-0.59); #Neutrophils 3.7 thou/uL (1.40-6.50); %Basophils 0.5 % (0.0-1.0); %Eosinophils 6.2 % (0.0-10.0); %Lymphocytes 29.7 % (21.0-51.0); %Monocytes 8.4 % (0.0-10.0); %Neutrophils 55.3 % (42.0-75.0); Mean Corpuscular HGB CONC 32.1 g/dL (32.0-36.0); Mean Corpuscular Hemoglobin 29.7 pg (27.0-31.0); Mean Corpuscular Volume 92.5 fL (78.0-98.0); Mean Platelet Volume 8.7 fL (7.4-10.4); Platelet Count 137 thou/uL (130-400); RBC Distribution Width 14.6 % (11.5-14.5); Red Blood Cell (RBC) Count 3.05 mill/uL (4.20-5.40); White Blood Cell (WBC) Count 6.7 thou/uL (4.8-10.8)
[2020-08-03 16:51] LABS: Bacteria/HPF 3+ HPF (None Seen); Squamous Epithelial 0-3 HPF (0-3); WBC/HPF Greater Than 50 HPF (0-3)
[2020-08-03 16:55] LABS: INR-International Normal Ratio 0.9; Prothrombin Time 12.6 sec (12.0-14.7)
[2020-08-03 17:14] LABS: ALT (SGPT) Less than 7 U/L (8-55); AST (SGOT) 10 U/L (5-34); Albumin 3.5 g/dL (3.4-4.8); Alkaline Phosphatase 79 U/L (40-110); Anion Gap 13 mmol/L (10-20); BUN (Urea Nitrogen) 33 mg/dL (9.8-20.1); Bilirubin, Total 0.2 mg/dL (0.2-1.2); Calc. Creatinine Clearance 0 mL/min (70-130); Calcium 8.4 mg/dL (7.8-10.44); Carbon Dioxide 23 mmol/L (23-31); Chloride 110 mmol/L (98-107); Globulin 2.5 g/dL (2.4-3.5); Glucose 74 mg/dL (80-115); Potassium 3.9 mmol/L (3.5-5.1); Sodium 142 mmol/L (136-145)
[2020-08-03] MEDS ORDERED: cefTRIAXone\\ROCEPHIN 1 GM VIAL ONE (17:19)
[2020-08-03] MEDS ORDERED: Labetalol HCl 100 MG/20 ML VIAL SLOW IVP PRN (19:07)
[2020-08-03] MEDS ORDERED: hydrALAZINE 20 MG/ML VIAL SLOW IVP PRN (19:07)
[2020-08-03] MEDS ORDERED: Calcium Carbonate 500 MG ChewTAB PO PRN (19:17)
[2020-08-03] MEDS ORDERED: Ondansetron PF 4 MG/2 ML Vial IVP PRN (19:17)
[2020-08-03] MEDS ORDERED: Ondansetron ODT 4 MG TAB PO PRN (19:17)
[2020-08-03] MEDS ORDERED: Acetaminophen 650 MG Suppository PR PRN (19:17)
[2020-08-03] MEDS ORDERED: Acetaminophen 325 MG TAB PO PRN (19:17)
[2020-08-03 19:50] LABS: Amphetamine Not Detected (NotDetected); Cocaine Metabolite Screen Not Detected (NotDetected); Medtox Reader # READER 1; Methamphetamine Not Detected (NotDetected); Opiate Screen Detected (NotDetected); Phencyclidine (PCP) Not Detected (NotDetected); THC/Cannabinoid Screen Not Detected (NotDetected)
[2020-08-03 19:51] LABS: Barbiturates Screen Not Detected (NotDetected); Benzodiazepine Screen Detected (NotDetected); Medtox Control Line Valid? VALID (VALID); Methadone Not Detected (NotDetected); Oxycodone Screen Not Detected (NotDetected); Tricyclic Screen Not Detected (NotDetected)
[2020-08-03] MEDS ORDERED: Oxybutynin 5 MG TAB PO SCH (21:00)
[2020-08-03] MEDS: HYDROcodone/Acetaminophen 10/325 mg Tablet PO PRN (21:00)
[2020-08-03] MEDS: Atorvastatin Calcium 40 MG TAB PO SCH (21:00)
[2020-08-03] MEDS: Aggrenox 200-25mg CAP PO SCH (21:00)
[2020-08-03] MEDS: Benzonatate 100 MG CAP PO SCH (21:01)
[2020-08-03 22:01] VITALS: BMI 26.2
[2020-08-04 05:24] LABS: #Eosinphils 0.4 thou/uL (0.0-0.7); #Lymphocytes 2.1 thou/uL (1.20-3.40); #Monocytes 0.6 thou/uL (0.11-0.59); %Basophils 0.4 % (0.0-1.0); %Eosinophils 7.2 % (0.0-10.0); %Lymphocytes 34.3 % (21.0-51.0); %Monocytes 9.8 % (0.0-10.0); %Neutrophils 48.4 % (42.0-75.0); Hemoglobin 8.6 g/dL (12.0-16.0); Mean Corpuscular HGB CONC 32.2 g/dL (32.0-36.0); Mean Corpuscular Hemoglobin 29.6 pg (27.0-31.0); Mean Platelet Volume 8.4 fL (7.4-10.4); Platelet Count 129 thou/uL (130-400); RBC Distribution Width 14.8 % (11.5-14.5); Red Blood Cell (RBC) Count 2.92 mill/uL (4.20-5.40); White Blood Cell (WBC) Count 6.2 thou/uL (4.8-10.8)
[2020-08-04 05:52] LABS: Anion Gap 13 mmol/L (10-20); BUN (Urea Nitrogen) 31 mg/dL (9.8-20.1); Calc. Creatinine Clearance 30 mL/min (70-130); Calcium 8.4 mg/dL (7.8-10.44); Carbon Dioxide 20 mmol/L (23-31); Cardiac Risk 2.5 (Less than 4.5); Chloride 108 mmol/L (98-107); Cholesterol 141 mg/dl (< 200 Desired); Glucose 95 mg/dL (80-115); HDL Cholesterol 57 mg/dL (>60 Neg Risk); LDL Cholesterol, Calculated 66 mg/dL; Magnesium 1.6 mg/dL (1.6-2.6); Potassium 4.1 mmol/L (3.5-5.1); Sodium 137 mmol/L (136-145); Triglycerides 89 mg/dL (Less than 150)
[2020-08-04 06:16] LABS: Thyroid Stimulating Hormone 1.3228 uIU/mL (0.35-4.94)
[2020-08-04] MEDS: Oxybutynin 5 MG TAB PO SCH ×2 (08:16→21:27)
[2020-08-04] MEDS: Escitalopram Oxalate 20 mg Tablet PO SCH (08:16)
[2020-08-04] MEDS: Aggrenox 200-25mg CAP PO SCH ×2 (08:17→21:27)
[2020-08-04] MEDS: Montelukast Sodium 10 mg Tablet PO SCH ×2 (08:18→08:22)
[2020-08-04] MEDS: Benzonatate 100 MG CAP PO SCH ×2 (08:18→20:07)
[2020-08-04 09:13] LABS: SARS-CoV-2 PCR by NAA Not Detected (NotDetected)
[2020-08-04] MEDS ORDERED: Amlodipine 10 MG TAB PO SCH (12:45)
[2020-08-04] MEDS: HYDROcodone/Acetaminophen 10/325 mg Tablet PO PRN ×2 (13:18→20:12)
[2020-08-04] MEDS ORDERED: tiZANidine HCl 4 MG TAB PO PRN (13:52)
[2020-08-04] MEDS ORDERED: CYCLOBENZAPRINE HCL 7.5 MG PO PRN (13:52)
[2020-08-04] MEDS ORDERED: hydrOXYzine 25 MG TAB PO SCH (14:15)
[2020-08-04] MEDS ORDERED: Folic Acid 1 MG TAB PO SCH (14:15)
[2020-08-04] MEDS: hydrOXYzine 25 MG TAB PO SCH (14:37)
[2020-08-04] MEDS: Atorvastatin Calcium 40 MG TAB PO SCH (20:12)
[2020-08-04] MEDS ORDERED: Piperacillin/Tazobactam 4.5 GM in Sodium Chloride 0.9% 100 ML IVPB SCH (22:59)
[2020-08-04] MEDS: Piperacillin/Tazobactam 2.25 GM in Sodium Chloride 0.9% 100 ML IVPB SCH (23:43)
[2020-08-05] MEDS: Piperacillin/Tazobactam 2.25 GM in Sodium Chloride 0.9% 100 ML IVPB SCH ×3 (05:43→18:17)
[2020-08-05] MEDS: Oxybutynin 5 MG TAB PO SCH ×2 (08:23→20:25)
[2020-08-05] MEDS: Montelukast Sodium 10 mg Tablet PO SCH (08:25)
[2020-08-05] MEDS: Folic Acid 1 MG TAB PO SCH (08:26)
[2020-08-05] MEDS: Escitalopram Oxalate 20 mg Tablet PO SCH (08:27)
[2020-08-05] MEDS: Benzonatate 100 MG CAP PO SCH ×2 (08:28→20:26)
[2020-08-05] MEDS: HYDROcodone/Acetaminophen 10/325 mg Tablet PO PRN ×2 (08:35→18:32)
[2020-08-05] MEDS: Aggrenox 200-25mg CAP PO SCH ×2 (09:06→20:25)
[2020-08-05] MEDS ORDERED: Amlodipine 10 MG TAB PO SCH (15:00)
[2020-08-05] MEDS: Atorvastatin Calcium 40 MG TAB PO SCH (20:25)
[2020-08-06] MEDS: Piperacillin/Tazobactam 2.25 GM in Sodium Chloride 0.9% 100 ML IVPB SCH ×2 (00:14→05:25)
[2020-08-06] MEDS: HYDROcodone/Acetaminophen 10/325 mg Tablet PO PRN ×3 (00:14→21:46)
[2020-08-06 07:21] LABS: #Eosinphils 0.4 thou/uL (0.0-0.7); #Lymphocytes 1.6 thou/uL (1.20-3.40); #Monocytes 0.7 thou/uL (0.11-0.59); #Neutrophils 2.5 thou/uL (1.40-6.50); %Basophils 0.6 % (0.0-1.0); %Eosinophils 7.6 % (0.0-10.0); %Lymphocytes 30.3 % (21.0-51.0); %Monocytes 12.9 % (0.0-10.0); %Neutrophils 48.7 % (42.0-75.0); Hemoglobin 8.3 g/dL (12.0-16.0); Mean Corpuscular HGB CONC 31.2 g/dL (32.0-36.0); Mean Corpuscular Hemoglobin 28.9 pg (27.0-31.0); Mean Corpuscular Volume 92.5 fL (78.0-98.0); Mean Platelet Volume 8.4 fL (7.4-10.4); Platelet Count 122 thou/uL (130-400); RBC Distribution Width 14.7 % (11.5-14.5); Red Blood Cell (RBC) Count 2.88 mill/uL (4.20-5.40); White Blood Cell (WBC) Count 5.2 thou/uL (4.8-10.8)
[2020-08-06 07:36] LABS: Anion Gap 15 mmol/L (10-20); BUN (Urea Nitrogen) 38 mg/dL (9.8-20.1); Calc. Creatinine Clearance 27 mL/min (70-130); Calcium 8.6 mg/dL (7.8-10.44); Carbon Dioxide 19 mmol/L (23-31); Chloride 105 mmol/L (98-107); Glucose 112 mg/dL (80-115); Potassium 4.5 mmol/L (3.5-5.1); Sodium 134 mmol/L (136-145)
[2020-08-06] MEDS ORDERED: Amlodipine 10 MG TAB PO SCH (09:00)
[2020-08-06] MEDS: hydrOXYzine 25 MG TAB PO SCH (10:05)
[2020-08-06] MEDS: Escitalopram Oxalate 20 mg Tablet PO SCH (10:05)
[2020-08-06] MEDS: Benzonatate 100 MG CAP PO SCH ×3 (10:05→21:36)
[2020-08-06] MEDS: Montelukast Sodium 10 mg Tablet PO SCH (10:05)
[2020-08-06] MEDS: Oxybutynin 5 MG TAB PO SCH ×2 (10:05→21:45)
[2020-08-06] MEDS: Aggrenox 200-25mg CAP PO SCH ×2 (10:05→21:54)
[2020-08-06] MEDS: Folic Acid 1 MG TAB PO SCH (10:06)
[2020-08-06] MEDS: Amlodipine 10 MG TAB PO SCH (10:08)
[2020-08-06] MEDS ORDERED: AMOXicillin 250 MG CAP PO SCH (11:00)
[2020-08-06] MEDS: Atorvastatin Calcium 40 MG TAB PO SCH (21:45)
[2020-08-06] MEDS: AMOXicillin 250 MG CAP PO SCH (21:45)
[2020-08-07 07:48] LABS: #Basophils 0.1 thou/uL (0.0-0.2); #Eosinphils 0.6 thou/uL (0.0-0.7); #Lymphocytes 2.1 thou/uL (1.20-3.40); #Monocytes 0.6 thou/uL (0.11-0.59); #Neutrophils 3.1 thou/uL (1.40-6.50); %Basophils 0.9 % (0.0-1.0); %Eosinophils 8.5 % (0.0-10.0); %Lymphocytes 32.9 % (21.0-51.0); %Monocytes 9.9 % (0.0-10.0); %Neutrophils 47.8 % (42.0-75.0); Hemoglobin 10.3 g/dL (12.0-16.0); Mean Corpuscular HGB CONC 32.3 g/dL (32.0-36.0); Mean Corpuscular Hemoglobin 30.1 pg (27.0-31.0); Mean Corpuscular Volume 93.2 fL (78.0-98.0); Mean Platelet Volume 8.8 fL (7.4-10.4); Platelet Count 140 thou/uL (130-400); RBC Distribution Width 14.8 % (11.5-14.5); Red Blood Cell (RBC) Count 3.42 mill/uL (4.20-5.40); White Blood Cell (WBC) Count 6.5 thou/uL (4.8-10.8)
[2020-08-07 08:15] LABS: Anion Gap 15 mmol/L (10-20); BUN (Urea Nitrogen) 39 mg/dL (9.8-20.1); Calc. Creatinine Clearance 25 mL/min (70-130); Calcium 9.2 mg/dL (7.8-10.44); Carbon Dioxide 23 mmol/L (23-31); Chloride 105 mmol/L (98-107); Glucose 98 mg/dL (80-115); Potassium 4.8 mmol/L (3.5-5.1); Sodium 138 mmol/L (136-145)
[2020-08-07 09:42] VITALS: BP 133/62; TEMP 98.1
[2020-08-07] MEDS: Folic Acid 1 MG TAB PO SCH (10:21)
[2020-08-07] MEDS: Aggrenox 200-25mg CAP PO SCH (10:21)
[2020-08-07] MEDS: Escitalopram Oxalate 20 mg Tablet PO SCH (10:21)
[2020-08-07] MEDS: Benzonatate 100 MG CAP PO SCH (10:22)
[2020-08-07] MEDS: AMOXicillin 250 MG CAP PO SCH (10:22)
[2020-08-07] MEDS: Oxybutynin 5 MG TAB PO SCH (10:22)
[2020-08-07] MEDS: hydrOXYzine 25 MG TAB PO SCH (10:24)
[2020-08-07] MEDS: Montelukast Sodium 10 mg Tablet PO SCH (10:24)
[2020-08-07] MEDS: Amlodipine 10 MG TAB PO SCH (10:24)
[2020-08-07] MEDS: HYDROcodone/Acetaminophen 10/325 mg Tablet PO PRN (15:11)
== END 2020-08-07 17:15 | disposition home or self-care (01) | DRG 690 ==
LOC: ERS 15:41 → 2SW 17:28 → ONC 08-04 18:33 → OBSVTOIN 08-05 15:14
PROVIDERS: ADMIT Internal Medicine; ATTEND Internal Medicine
DX: N39.0 Urinary tract infection, site not specified (principal); I69.354 Hemiplegia and hemiparesis following cerebral infarction affecting left non-dominant side; N18.4 Chronic kidney disease, stage 4 (severe); K51.90 Ulcerative colitis, unspecified, without complications; N17.9 Acute kidney failure, unspecified; E78.5 Hyperlipidemia, unspecified; J44.9 Chronic obstructive pulmonary disease, unspecified; M19.90 Unspecified osteoarthritis, unspecified site; F41.9 Anxiety disorder, unspecified; F17.210 Nicotine dependence, cigarettes, uncomplicated; F32.9 Major depressive disorder, single episode, unspecified; B95.2 Enterococcus as the cause of diseases classified elsewhere; I12.9 Hypertensive chronic kidney disease with stage 1 through stage 4 chronic kidney disease, or unspecified chronic kidney disease; Z20.822 Contact with and (suspected) exposure to COVID-19; K21.9 Gastro-esophageal reflux disease without esophagitis; Z88.1 Allergy status to other antibiotic agents; Z88.2 Allergy status to sulfonamides; Z88.8 Allergy status to other drugs, medicaments and biological substances; Z79.82 Long term (current) use of aspirin; Z90.49 Acquired absence of other specified parts of digestive tract; Z90.710 Acquired absence of both cervix and uterus
CPT/HCPCS: 36415; 51701; 70450; 70551; 71045; 80048; 80053; 80061; 80306; 81003; 81015; 82607; 82746; 83735; 84443; 84484; 85025; 85610; 85730; 87077; 87086; 87186; 87635; 93005; 93306; 96365; 96374; 96376; G0378; J0696; J2543; J3490; U0003; U0005

== ENCOUNTER 2020-08-28 00:33 | Observation (INO) | payer MEDICARE, MEDICAID ==
[2020-08-28 00:59] LABS: #Eosinphils 0.1 thou/uL (0.0-0.7); #Lymphocytes 2.6 thou/uL (1.20-3.40); #Monocytes 0.6 thou/uL (0.11-0.59); #Neutrophils 4.3 thou/uL (1.40-6.50); %Basophils 0.6 % (0.0-1.0); %Eosinophils 1.7 % (0.0-10.0); %Lymphocytes 33.4 % (21.0-51.0); %Monocytes 7.9 % (0.0-10.0); %Neutrophils 56.4 % (42.0-75.0); Hemoglobin 8.8 g/dL (12.0-16.0); Mean Corpuscular HGB CONC 32.9 g/dL (32.0-36.0); Mean Corpuscular Hemoglobin 29.7 pg (27.0-31.0); Mean Corpuscular Volume 90.3 fL (78.0-98.0); Mean Platelet Volume 7.4 fL (7.4-10.4); Platelet Count 217 thou/uL (130-400); RBC Distribution Width 13.9 % (11.5-14.5); Red Blood Cell (RBC) Count 2.96 mill/uL (4.20-5.40); White Blood Cell (WBC) Count 7.6 thou/uL (4.8-10.8)
[2020-08-28 01:25] LABS: Acetaminophen Less than 6.0 mcg/mL (10.0-30.0); Alcohol 35 mg/dL (Less than 10); Salicylate Less than 8.0 mg/dL (15.0-30.0)
[2020-08-28 01:26] LABS: ALT (SGPT) 67 U/L (8-55); AST (SGOT) 160 U/L (5-34); Albumin 3.4 g/dL (3.4-4.8); Anion Gap 16 mmol/L (10-20); BUN (Urea Nitrogen) 34 mg/dL (9.8-20.1); Bilirubin, Total 0.2 mg/dL (0.2-1.2); Calc. Creatinine Clearance 0 mL/min (70-130); Calcium 8.5 mg/dL (7.8-10.44); Carbon Dioxide 18 mmol/L (23-31); Chloride 110 mmol/L (98-107); Globulin 2.7 g/dL (2.4-3.5); Glucose 116 mg/dL (80-115); Potassium 3.6 mmol/L (3.5-5.1); Protein, Total 6.1 g/dL (5.8-8.1); Sodium 140 mmol/L (136-145)
[2020-08-28] MEDS ORDERED: Aspirin Chewable 81 MG TAB ONE (02:10)
[2020-08-28 02:22] LABS: Alkaline Phosphatase 257 U/L (40-110)
[2020-08-28] MEDS ORDERED: Ondansetron PF 4 MG/2 ML Vial IVP PRN (03:41)
[2020-08-28] MEDS ORDERED: Ondansetron ODT 4 MG TAB PO PRN (03:41)
[2020-08-28] MEDS ORDERED: Acetaminophen 325 MG TAB PO PRN (03:41)
[2020-08-28 04:28] VITALS: BMI 25.5
[2020-08-28] MEDS ORDERED: Lorazepam 2 MG/ML VIAL SLOW IVP PRN (08:00)
[2020-08-28 08:57] LABS: HBCM Index 0.08 S/CO (0-0.79); HBSAg Index 0.19 S/CO (0-0.99); Hep A IgM AB Non-Reactive (NonReactive); Hep A IgM S/CO 0.09 S/CO (0-0.79); Hep B Surf Ag Non-Reactive S/CO (NonReactive); Hep C IgG Ab Non-Reactive (NonReactive); Hep C Index 0.11 S/CO (0-0.79); Hepatitis B Core IgM Abs Non-Reactive (NonReactive)
[2020-08-28 09:02] LABS: SARS-CoV-2 PCR by NAA Not Detected (NotDetected)
[2020-08-28] MEDS: Enoxaparin Sodium 30 MG/0.3 ML SYRINGE SC SCH (09:14)
[2020-08-28] MEDS: Aspirin 81 mg Enteric Coated Tablet PO SCH (09:14)
[2020-08-28] MEDS ORDERED: tiZANidine HCl 4 MG TAB PO PRN (15:01)
[2020-08-28] MEDS ORDERED: traZODone HCl 50 MG TAB PO PRN (15:01)
[2020-08-28] MEDS ORDERED: Benzonatate 100 MG CAP PO PRN (15:01)
[2020-08-28] MEDS ORDERED: cloNIDine 0.1 MG TAB PO PRN (15:01)
[2020-08-28] MEDS ORDERED: Diphenoxylate HCl/Atropine Tablet PO PRN (15:01)
[2020-08-28] MEDS: HYDROcodone/Acetaminophen 10/325 mg Tablet PO PRN (17:52)
[2020-08-28] MEDS ORDERED: Mometasone Furoate 30 PUFF 220 MCG INH SCH (18:30)
[2020-08-28] MEDS: Oxybutynin 5 MG TAB PO SCH (19:52)
[2020-08-28] MEDS: Aggrenox 200-25mg CAP PO SCH (19:52)
[2020-08-28] MEDS ORDERED: Atorvastatin Calcium 40 MG TAB PO SCH (21:00)
[2020-08-29] MEDS: HYDROcodone/Acetaminophen 10/325 mg Tablet PO PRN ×2 (01:48→08:54)
[2020-08-29 04:58] LABS: #Basophils 0.1 thou/uL (0.0-0.2); #Eosinphils 0.2 thou/uL (0.0-0.7); #Monocytes 0.5 thou/uL (0.11-0.59); %Eosinophils 3.7 % (0.0-10.0); %Lymphocytes 35.1 % (21.0-51.0); %Monocytes 7.7 % (0.0-10.0); %Neutrophils 52.5 % (42.0-75.0); Hemoglobin 8.2 g/dL (12.0-16.0); Mean Corpuscular HGB CONC 32.8 g/dL (32.0-36.0); Mean Corpuscular Hemoglobin 30.5 pg (27.0-31.0); Mean Corpuscular Volume 93.1 fL (78.0-98.0); Mean Platelet Volume 7.9 fL (7.4-10.4); Platelet Count 180 thou/uL (130-400); RBC Distribution Width 13.7 % (11.5-14.5); Red Blood Cell (RBC) Count 2.68 mill/uL (4.20-5.40); White Blood Cell (WBC) Count 5.8 thou/uL (4.8-10.8)
[2020-08-29 05:19] LABS: Anion Gap 14 mmol/L (10-20); BUN (Urea Nitrogen) 35 mg/dL (9.8-20.1); Calc. Creatinine Clearance 27 mL/min (70-130); Calcium 8.3 mg/dL (7.8-10.44); Carbon Dioxide 21 mmol/L (23-31); Cardiac Risk 2.1 (Less than 4.5); Chloride 103 mmol/L (98-107); Cholesterol 119 mg/dl (< 200 Desired); Glucose 139 mg/dL (80-115); HDL Cholesterol 58 mg/dL (>60 Neg Risk); LDL Cholesterol, Calculated 40 mg/dL; Potassium 3.9 mmol/L (3.5-5.1); Sodium 134 mmol/L (136-145); Triglycerides 104 mg/dL (Less than 150)
[2020-08-29] MEDS: Aspirin 81 mg Enteric Coated Tablet PO SCH (08:37)
[2020-08-29] MEDS: Oxybutynin 5 MG TAB PO SCH (08:41)
[2020-08-29] MEDS: Aggrenox 200-25mg CAP PO SCH (08:47)
[2020-08-29] MEDS: Enoxaparin Sodium 30 MG/0.3 ML SYRINGE SC SCH (08:48)
[2020-08-29] MEDS ORDERED: Escitalopram Oxalate 20 mg Tablet PO SCH (09:00)
[2020-08-29] MEDS ORDERED: Folic Acid 1 MG TAB PO SCH (09:00)
[2020-08-29] MEDS ORDERED: hydrOXYzine 25 MG TAB PO SCH (09:00)
[2020-08-29] MEDS ORDERED: Amlodipine 5 MG TAB PO SCH (09:00)
[2020-08-29] MEDS ORDERED: guaiFENesin ER 600 MG TAB PO SCH (09:00)
[2020-08-29 11:39] VITALS: BP 112/56; TEMP 97.7
[2020-08-29 12:01] LABS: Bacteria/HPF 4+ HPF (None Seen); Bilirubin Negative (Negative); Blood, Urine 2+ (Negative); Clarity Extra Turbid (Clear); Glucose, Urine (Dipstick) Normal (Negative); Ketone, Urine Negative (Negative); Leukocyte 500 Leu/uL (Negative); Nitrite 2+ (Negative); Protein, Urine (Dipstick) 70 mg/dL (Neg-Trace); RBC/HPF 21-50 HPF (0-3); Specific Gravity, Urine 1.007 (1.002-1.036); Urobilinogen Normal mg/dL (Less than 2); WBC/HPF Greater than 50 HPF (0-3)
== END 2020-08-29 15:30 | disposition home or self-care (01) ==
LOC: ERS 00:33 → 2SE 02:54
PROVIDERS: ADMIT Emergency Medicine; ATTEND Internal Medicine
DX: G45.9 Transient cerebral ischemic attack, unspecified (principal); J42 Unspecified chronic bronchitis; I12.9 Hypertensive chronic kidney disease with stage 1 through stage 4 chronic kidney disease, or unspecified chronic kidney disease; N18.4 Chronic kidney disease, stage 4 (severe); N39.0 Urinary tract infection, site not specified; E78.5 Hyperlipidemia, unspecified; K21.9 Gastro-esophageal reflux disease without esophagitis; M19.90 Unspecified osteoarthritis, unspecified site; F17.210 Nicotine dependence, cigarettes, uncomplicated; K74.60 Unspecified cirrhosis of liver; F10.129 Alcohol abuse with intoxication, unspecified; J32.3 Chronic sphenoidal sinusitis; Z86.73 Personal history of transient ischemic attack (TIA), and cerebral infarction without residual deficits; Z79.899 Other long term (current) drug therapy; Z88.1 Allergy status to other antibiotic agents; Z88.2 Allergy status to sulfonamides; Z88.5 Allergy status to narcotic agent; Z88.6 Allergy status to analgesic agent; Z88.8 Allergy status to other drugs, medicaments and biological substances; Z20.822 Contact with and (suspected) exposure to COVID-19; Y90.1 Blood alcohol level of 20-39 mg/100 ml
CPT/HCPCS: 70450; 70551; 71045; 80048; 80053; 80061; 80074; 80307; 81001; 82962; 84484; 85025 ×2; 93005; 94640; 96372 ×2; 96374; 97139 ×6; 99285; G0378 ×3; U0003; U0005; 36415; 36416; 87635; J1650; J2060

== ENCOUNTER 2020-09-12 14:54 | Emergency (ER) | payer MEDICARE, MEDICAID ==
[2020-09-12 15:38] LABS: #Eosinphils 0.3 thou/uL (0.0-0.7); #Lymphocytes 2.6 thou/uL (1.20-3.40); #Monocytes 0.9 thou/uL (0.11-0.59); #Neutrophils 6.9 thou/uL (1.40-6.50); %Basophils 0.4 % (0.0-1.0); %Eosinophils 3.2 % (0.0-10.0); %Lymphocytes 23.8 % (21.0-51.0); %Monocytes 8.3 % (0.0-10.0); %Neutrophils 64.2 % (42.0-75.0); Hemoglobin 10.2 g/dL (12.0-16.0); Mean Corpuscular HGB CONC 32.9 g/dL (32.0-36.0); Mean Corpuscular Hemoglobin 29.9 pg (27.0-31.0); Mean Corpuscular Volume 90.8 fL (78.0-98.0); Platelet Count 287 thou/uL (130-400); RBC Distribution Width 13.7 % (11.5-14.5); Red Blood Cell (RBC) Count 3.42 mill/uL (4.20-5.40); White Blood Cell (WBC) Count 10.8 thou/uL (4.8-10.8)
[2020-09-12 16:06] LABS: ALT (SGPT) 72 U/L (8-55); AST (SGOT) 40 U/L (5-34); Albumin 3.9 g/dL (3.4-4.8); Alkaline Phosphatase 419 U/L (40-110); Anion Gap 19 mmol/L (10-20); BUN (Urea Nitrogen) 40 mg/dL (9.8-20.1); Bilirubin, Total 0.4 mg/dL (0.2-1.2); Calc. Creatinine Clearance 0 mL/min (70-130); Calcium 8.9 mg/dL (7.8-10.44); Carbon Dioxide 17 mmol/L (23-31); Chloride 104 mmol/L (98-107); Globulin 3.1 g/dL (2.4-3.5); Glucose 88 mg/dL (80-115); Potassium 3.9 mmol/L (3.5-5.1); Sodium 136 mmol/L (136-145)
[2020-09-12 16:23] LABS: Bilirubin Negative (Negative); Blood, Urine 2+ (Negative); Clarity Extra Turbid (Clear); Glucose, Urine (Dipstick) Normal (Negative); Ketone, Urine Negative (Negative); Leukocyte 500 Leu/uL (Negative); Nitrite Negative (Negative); Protein, Urine (Dipstick) 50 mg/dL (Neg-Trace); RBC/HPF 21-50 HPF (0-3); Specific Gravity, Urine 1.011 (1.002-1.036); Squamous Epithelial None Seen HPF (0-3); Urobilinogen Normal mg/dL (Less than 2); WBC/HPF Greater than 50 HPF (0-3)
[2020-09-12 16:33] LABS: Bacteria/HPF Rare-Few HPF (None Seen)
== END 2020-09-12 17:33 | disposition home or self-care (01) ==
LOC: ERS 14:54
DX: R60.0 Localized edema (principal); K58.9 Irritable bowel syndrome, unspecified; J44.9 Chronic obstructive pulmonary disease, unspecified; I10 Essential (primary) hypertension; E78.5 Hyperlipidemia, unspecified; M19.90 Unspecified osteoarthritis, unspecified site; F17.210 Nicotine dependence, cigarettes, uncomplicated; Z86.73 Personal history of transient ischemic attack (TIA), and cerebral infarction without residual deficits; Z79.899 Other long term (current) drug therapy; Z79.01 Long term (current) use of anticoagulants; Z79.82 Long term (current) use of aspirin
CPT/HCPCS: 71045; 80053; 81003; 81015; 83880; 84484; 85025; 93005

== ENCOUNTER 2020-10-20 05:58 | Emergency (ER) | payer MEDICARE, MEDICAID ==
[2020-10-20 06:44] LABS: #Eosinphils 0.1 thou/uL (0.0-0.7); #Lymphocytes 1.7 thou/uL (1.20-3.40); #Monocytes 1.5 thou/uL (0.11-0.59); #Neutrophils 7.2 thou/uL (1.40-6.50); %Basophils 0.4 % (0.0-1.0); %Eosinophils 1.1 % (0.0-10.0); %Lymphocytes 16.2 % (21.0-51.0); %Monocytes 13.8 % (0.0-10.0); %Neutrophils 68.5 % (42.0-75.0); Hemoglobin 10.8 g/dL (12.0-16.0); Mean Corpuscular Hemoglobin 32.2 pg (27.0-31.0); Mean Corpuscular Volume 92.1 fL (78.0-98.0); Mean Platelet Volume 8.1 fL (7.4-10.4); Platelet Count 186 thou/uL (130-400); RBC Distribution Width 12.5 % (11.5-14.5); Red Blood Cell (RBC) Count 3.36 mill/uL (4.20-5.40); White Blood Cell (WBC) Count 10.6 thou/uL (4.8-10.8)
[2020-10-20 06:56] LABS: ALT (SGPT) 12 U/L (8-55); AST (SGOT) 10 U/L (5-34); Albumin 3.6 g/dL (3.4-4.8); Alkaline Phosphatase 136 U/L (40-110); Anion Gap 15 mmol/L (10-20); BUN (Urea Nitrogen) 31 mg/dL (9.8-20.1); Bilirubin, Total 0.4 mg/dL (0.2-1.2); Calc. Creatinine Clearance 0 mL/min (70-130); Calcium 8.7 mg/dL (7.8-10.44); Carbon Dioxide 21 mmol/L (23-31); Chloride 103 mmol/L (98-107); Globulin 2.9 g/dL (2.4-3.5); Glucose 111 mg/dL (80-115); Potassium 3.8 mmol/L (3.5-5.1); Protein, Total 6.5 g/dL (5.8-8.1); Sodium 135 mmol/L (136-145)
[2020-10-20 07:49] LABS: Bacteria/HPF 3+ HPF (None Seen); Bilirubin Negative (Negative); Blood, Urine 2+ (Negative); Clarity Extra Turbid (Clear); Glucose, Urine (Dipstick) Normal (Negative); Ketone, Urine Negative (Negative); Leukocyte 500 Leu/uL (Negative); Nitrite Negative (Negative); Protein, Urine (Dipstick) 200 mg/dL (Neg-Trace); RBC/HPF Greater than 50 HPF (0-3); Squamous Epithelial None Seen HPF (0-3); Urobilinogen Normal mg/dL (Less than 2); WBC/HPF Greater than 50 HPF (0-3)
== END 2020-10-20 08:23 | disposition home or self-care (01) ==
LOC: ERS 05:58
DX: N30.00 Acute cystitis without hematuria (principal); R11.0 Nausea; K58.9 Irritable bowel syndrome, unspecified; J44.9 Chronic obstructive pulmonary disease, unspecified; I10 Essential (primary) hypertension; E78.5 Hyperlipidemia, unspecified; M19.90 Unspecified osteoarthritis, unspecified site; F17.210 Nicotine dependence, cigarettes, uncomplicated; Z86.73 Personal history of transient ischemic attack (TIA), and cerebral infarction without residual deficits; Z79.899 Other long term (current) drug therapy; Z79.01 Long term (current) use of anticoagulants; Z79.82 Long term (current) use of aspirin
CPT/HCPCS: 36415; 74176; 80053; 81003; 81015; 83605; 85025; 93005

== ENCOUNTER 2020-12-28 11:39 | Emergency (ER) | payer OTHER, MEDICARE ==
[2020-12-28 12:38] LABS: Bacteria/HPF 4+ HPF (None Seen); Bilirubin Negative (Negative); Blood, Urine 2+ (Negative); Clarity Extra Turbid (Clear); Glucose, Urine (Dipstick) Normal (Negative); Ketone, Urine Negative (Negative); Leukocyte 500 Leu/uL (Negative); Nitrite Negative (Negative); Protein, Urine (Dipstick) 70 mg/dL (Neg-Trace); RBC/HPF 21-50 HPF (0-3); Specific Gravity, Urine 1.013 (1.002-1.036); Squamous Epithelial None Seen HPF (0-3); Urobilinogen Normal mg/dL (Less than 2); WBC/HPF Greater than 50 HPF (0-3)
[2020-12-28 12:47] LABS: #Basophils 0.1 thou/uL (0.0-0.2); #Eosinphils 0.4 thou/uL (0.0-0.7); #Lymphocytes 2.2 thou/uL (1.20-3.40); #Monocytes 0.8 thou/uL (0.11-0.59); #Neutrophils 5.6 thou/uL (1.40-6.50); %Basophils 0.8 % (0.0-1.0); %Eosinophils 4.4 % (0.0-10.0); %Lymphocytes 24.5 % (21.0-51.0); %Monocytes 9.1 % (0.0-10.0); %Neutrophils 61.2 % (42.0-75.0); Hemoglobin 12.6 g/dL (12.0-16.0); Mean Corpuscular HGB CONC 33.9 g/dL (32.0-36.0); Mean Corpuscular Hemoglobin 31.4 pg (27.0-31.0); Mean Corpuscular Volume 92.8 fL (78.0-98.0); Mean Platelet Volume 8.3 fL (7.4-10.4); Platelet Count 229 thou/uL (130-400); RBC Distribution Width 12.2 % (11.5-14.5); Red Blood Cell (RBC) Count 4.02 mill/uL (4.20-5.40); White Blood Cell (WBC) Count 9.1 thou/uL (4.8-10.8)
[2020-12-28 13:17] LABS: ALT (SGPT) 10 U/L (8-55); AST (SGOT) 16 U/L (5-34); Albumin 4.1 g/dL (3.4-4.8); Alkaline Phosphatase 113 U/L (40-110); Anion Gap 15 mmol/L (10-20); BUN (Urea Nitrogen) 37 mg/dL (9.8-20.1); Bilirubin, Total 0.5 mg/dL (0.2-1.2); Calc. Creatinine Clearance 0 mL/min (70-130); Calcium 9.4 mg/dL (7.8-10.44); Carbon Dioxide 22 mmol/L (23-31); Chloride 104 mmol/L (98-107); Globulin 3.1 g/dL (2.4-3.5); Glucose 111 mg/dL (80-115); Potassium 4.1 mmol/L (3.5-5.1); Protein, Total 7.2 g/dL (5.8-8.1); Sodium 137 mmol/L (136-145)
[2020-12-28] MEDS ORDERED: cefTRIAXone\\ROCEPHIN 1 GM VIAL ONE (14:29)
[2020-12-28] MEDS ORDERED: Acetaminophen 500 MG TAB ONE (16:26)
== END 2020-12-28 16:42 | disposition home or self-care (01) ==
LOC: ERS 11:39
DX: N39.0 Urinary tract infection, site not specified (principal); I44.0 Atrioventricular block, first degree; I12.9 Hypertensive chronic kidney disease with stage 1 through stage 4 chronic kidney disease, or unspecified chronic kidney disease; N18.9 Chronic kidney disease, unspecified; E78.5 Hyperlipidemia, unspecified; J44.9 Chronic obstructive pulmonary disease, unspecified; F17.210 Nicotine dependence, cigarettes, uncomplicated; Z86.73 Personal history of transient ischemic attack (TIA), and cerebral infarction without residual deficits; Z79.82 Long term (current) use of aspirin; Z79.899 Other long term (current) drug therapy
CPT/HCPCS: 36415; 80053; 81003; 81015; 85025; 93005; 96365; J0696

== ENCOUNTER 2021-01-22 13:46 | Emergency (ER) | payer MEDICARE, MEDICAID, OTHER ==
[2021-01-22 14:21] LABS: Bacteria/HPF None Seen HPF (None Seen); Bilirubin Negative (Negative); Blood, Urine Trace (Negative); Clarity Turbid (Clear); Glucose, Urine (Dipstick) Normal (Negative); Ketone, Urine Negative (Negative); Leukocyte 500 Leu/uL (Negative); Nitrite Negative (Negative); Protein, Urine (Dipstick) 20 mg/dL (Neg-Trace); Specific Gravity, Urine 1.014 (1.002-1.036); Squamous Epithelial 0-3 HPF (0-3); Urobilinogen Normal mg/dL (Less than 2); WBC/HPF Greater than 50 HPF (0-3); pH, Urine 5.5 (5.0-9.0)
[2021-01-22 14:23] LABS: #Basophils 0.1 thou/uL (0.0-0.2); #Eosinphils 0.4 thou/uL (0.0-0.7); #Lymphocytes 2.3 thou/uL (1.20-3.40); #Monocytes 0.8 thou/uL (0.11-0.59); #Neutrophils 3.7 thou/uL (1.40-6.50); %Eosinophils 5.4 % (0.0-10.0); %Lymphocytes 32.1 % (21.0-51.0); %Monocytes 11.1 % (0.0-10.0); %Neutrophils 50.3 % (42.0-75.0); Hemoglobin 10.4 g/dL (12.0-16.0); Mean Corpuscular HGB CONC 33.3 g/dL (32.0-36.0); Mean Corpuscular Hemoglobin 31.5 pg (27.0-31.0); Mean Corpuscular Volume 94.6 fL (78.0-98.0); Mean Platelet Volume 8.2 fL (7.4-10.4); Platelet Count 197 thou/uL (130-400); RBC Distribution Width 11.8 % (11.5-14.5); White Blood Cell (WBC) Count 7.3 thou/uL (4.8-10.8)
[2021-01-22 14:54] LABS: Anion Gap 13 mmol/L (10-20); BUN (Urea Nitrogen) 36 mg/dL (9.8-20.1); Calc. Creatinine Clearance 0 mL/min (70-130); Calcium 8.7 mg/dL (7.8-10.44); Carbon Dioxide 23 mmol/L (23-31); Chloride 109 mmol/L (98-107); Glucose 111 mg/dL (80-115); Potassium 4.3 mmol/L (3.5-5.1); Sodium 141 mmol/L (136-145)
== END 2021-01-22 15:50 | disposition home or self-care (01) ==
LOC: ERS 13:46
DX: N39.0 Urinary tract infection, site not specified (principal); J44.9 Chronic obstructive pulmonary disease, unspecified; I12.9 Hypertensive chronic kidney disease with stage 1 through stage 4 chronic kidney disease, or unspecified chronic kidney disease; N18.9 Chronic kidney disease, unspecified; E78.5 Hyperlipidemia, unspecified; F17.210 Nicotine dependence, cigarettes, uncomplicated; Z86.73 Personal history of transient ischemic attack (TIA), and cerebral infarction without residual deficits; Z79.82 Long term (current) use of aspirin; Z79.899 Other long term (current) drug therapy
CPT/HCPCS: 80048; 81003; 81015; 85025; 87086; 99284

== ENCOUNTER 2021-01-26 18:56 | Emergency (ER) | payer MEDICARE, MEDICAID, OTHER ==
[2021-01-26 19:32] LABS: #Basophils 0.1 thou/uL (0.0-0.2); #Eosinphils 0.6 thou/uL (0.0-0.7); #Lymphocytes 2.4 thou/uL (1.20-3.40); #Monocytes 0.9 thou/uL (0.11-0.59); #Neutrophils 4.8 thou/uL (1.40-6.50); %Basophils 0.6 % (0.0-1.0); %Eosinophils 6.9 % (0.0-10.0); %Lymphocytes 27.8 % (21.0-51.0); %Monocytes 10.6 % (0.0-10.0); %Neutrophils 54.2 % (42.0-75.0); Hemoglobin 10.6 g/dL (12.0-16.0); Mean Corpuscular HGB CONC 33.8 g/dL (32.0-36.0); Mean Corpuscular Hemoglobin 31.7 pg (27.0-31.0); Mean Corpuscular Volume 93.7 fL (78.0-98.0); Platelet Count 212 thou/uL (130-400); RBC Distribution Width 11.8 % (11.5-14.5); Red Blood Cell (RBC) Count 3.35 mill/uL (4.20-5.40); White Blood Cell (WBC) Count 8.8 thou/uL (4.8-10.8)
[2021-01-26 19:52] LABS: ALT (SGPT) 9 U/L (8-55); AST (SGOT) 16 U/L (5-34); Acetaminophen Less than 6.0 mcg/mL (10.0-30.0); Albumin 3.5 g/dL (3.4-4.8); Alcohol 11 mg/dL (Less than 10); Alkaline Phosphatase 120 U/L (40-110); Anion Gap 16 mmol/L (10-20); BUN (Urea Nitrogen) 31 mg/dL (9.8-20.1); Bilirubin, Total 0.2 mg/dL (0.2-1.2); Calc. Creatinine Clearance 0 mL/min (70-130); Carbon Dioxide 19 mmol/L (23-31); Chloride 108 mmol/L (98-107); Globulin 3.1 g/dL (2.4-3.5); Glucose 106 mg/dL (80-115); Potassium 4.4 mmol/L (3.5-5.1); Protein, Total 6.6 g/dL (5.8-8.1); Salicylate Less than 8.0 mg/dL (15.0-30.0); Sodium 139 mmol/L (136-145)
[2021-01-26] MEDS ORDERED: Haloperidol Lactate 5 MG/ML VIAL ONE (20:02)
[2021-01-26] MEDS ORDERED: Midazolam HCl 2 mg/2 ml Vial ONE (20:02)
[2021-01-26 21:37] LABS: Amphetamine Not Detected (NotDetected); Barbiturates Screen Not Detected (NotDetected); Benzodiazepine Screen Detected (NotDetected); Cocaine Metabolite Screen Not Detected (NotDetected); Methadone Not Detected (NotDetected); Methamphetamine Not Detected (NotDetected); Opiate Screen Detected (NotDetected); Oxycodone Screen Not Detected (NotDetected); Phencyclidine (PCP) Not Detected (NotDetected); THC/Cannabinoid Screen Not Detected (NotDetected); Tricyclic Screen Not Detected (NotDetected)
== END 2021-01-27 02:25 | disposition home or self-care (01) ==
LOC: ERS 18:56
DX: G47.00 Insomnia, unspecified (principal); Z79.82 Long term (current) use of aspirin; Z79.899 Other long term (current) drug therapy; Z79.891 Long term (current) use of opiate analgesic; I12.9 Hypertensive chronic kidney disease with stage 1 through stage 4 chronic kidney disease, or unspecified chronic kidney disease; N18.9 Chronic kidney disease, unspecified; J44.9 Chronic obstructive pulmonary disease, unspecified; F17.210 Nicotine dependence, cigarettes, uncomplicated
CPT/HCPCS: 36415; 70450; 80053; 80306; 80307; 84443; 85025; 93005; 96374; 96375; J1630; J2250

== ENCOUNTER 2021-03-30 16:55 | Emergency (ER) | payer MEDICARE, OTHER ==
[2021-03-30 18:09] LABS: Bilirubin Negative (Negative); Blood, Urine 1+ (Negative); Clarity Extra Turbid (Clear); Glucose, Urine (Dipstick) Normal (Negative); Ketone, Urine Negative (Negative); Leukocyte 500 Leu/uL (Negative); Nitrite Negative (Negative); Protein, Urine (Dipstick) 70 mg/dL (Neg-Trace); Specific Gravity, Urine 1.016 (1.002-1.036); Squamous Epithelial 0-3 HPF (0-3); Urobilinogen Normal mg/dL (Less than 2); WBC/HPF Greater than 50 HPF (0-3)
[2021-03-30 18:14] LABS: Bacteria/HPF Rare-Few HPF (None Seen)
[2021-03-30 18:14] LABS: #Basophils 0.1 thou/uL (0.0-0.2); #Eosinphils 0.3 thou/uL (0.0-0.7); #Lymphocytes 1.9 thou/uL (1.20-3.40); #Monocytes 0.7 thou/uL (0.11-0.59); #Neutrophils 3.6 thou/uL (1.40-6.50); %Basophils 1.2 % (0.0-1.0); %Eosinophils 4.6 % (0.0-10.0); %Lymphocytes 29.4 % (21.0-51.0); %Neutrophils 54.9 % (42.0-75.0); Hemoglobin 9.8 g/dL (12.0-16.0); Mean Corpuscular HGB CONC 33.1 g/dL (32.0-36.0); Mean Corpuscular Hemoglobin 30.6 pg (27.0-31.0); Mean Corpuscular Volume 92.4 fL (78.0-98.0); Mean Platelet Volume 7.5 fL (7.4-10.4); Platelet Count 225 thou/uL (130-400); RBC Distribution Width 11.6 % (11.5-14.5); Red Blood Cell (RBC) Count 3.19 mill/uL (4.20-5.40); White Blood Cell (WBC) Count 6.5 thou/uL (4.8-10.8)
[2021-03-30 18:38] LABS: ALT (SGPT) 7 U/L (8-55); AST (SGOT) 11 U/L (5-34); Albumin 3.5 g/dL (3.4-4.8); Alkaline Phosphatase 89 U/L (40-110); Anion Gap 14 mmol/L (10-20); BUN (Urea Nitrogen) 39 mg/dL (9.8-20.1); Bilirubin, Total 0.3 mg/dL (0.2-1.2); Calc. Creatinine Clearance 0 mL/min (70-130); Calcium 8.9 mg/dL (7.8-10.44); Carbon Dioxide 22 mmol/L (23-31); Chloride 107 mmol/L (98-107); Globulin 2.9 g/dL (2.4-3.5); Glucose 174 mg/dL (80-115); Potassium 3.9 mmol/L (3.5-5.1); Protein, Total 6.4 g/dL (5.8-8.1); Sodium 139 mmol/L (136-145)
== END 2021-03-30 20:03 | disposition home or self-care (01) ==
LOC: ERS 16:55
DX: N39.0 Urinary tract infection, site not specified (principal); I12.9 Hypertensive chronic kidney disease with stage 1 through stage 4 chronic kidney disease, or unspecified chronic kidney disease; N18.9 Chronic kidney disease, unspecified; E78.5 Hyperlipidemia, unspecified; Z86.73 Personal history of transient ischemic attack (TIA), and cerebral infarction without residual deficits; J44.9 Chronic obstructive pulmonary disease, unspecified; F17.210 Nicotine dependence, cigarettes, uncomplicated; Z79.82 Long term (current) use of aspirin; Z79.899 Other long term (current) drug therapy
CPT/HCPCS: 36415; 80053; 81003; 81015; 85025; 87077; 87086; 87186; 99284

== ENCOUNTER 2021-05-29 16:35 | Emergency (ER) | payer MEDICARE, MEDICAID, OTHER ==
[2021-05-29] MEDS ORDERED: HYDROcodone/Acetaminophen 7.5/325 mg Tablet ONE (17:21)
== END 2021-05-29 18:14 | disposition home or self-care (01) ==
LOC: ERS 16:35
DX: M17.11 Unilateral primary osteoarthritis, right knee (principal); G89.29 Other chronic pain; I12.9 Hypertensive chronic kidney disease with stage 1 through stage 4 chronic kidney disease, or unspecified chronic kidney disease; N18.9 Chronic kidney disease, unspecified; E78.5 Hyperlipidemia, unspecified; J44.9 Chronic obstructive pulmonary disease, unspecified; F17.210 Nicotine dependence, cigarettes, uncomplicated; Z86.73 Personal history of transient ischemic attack (TIA), and cerebral infarction without residual deficits; Z79.82 Long term (current) use of aspirin; Z79.899 Other long term (current) drug therapy
CPT/HCPCS: 36415; 80053; 80061; 85025

== ENCOUNTER 2021-08-26 19:13 | Emergency (ER) | payer MEDICARE, OTHER ==
[2021-08-26 19:57] LABS: #Basophils 0.1 thou/uL (0.0-0.2); #Eosinphils 0.3 thou/uL (0.0-0.7); #Lymphocytes 2.9 thou/uL (1.20-3.40); #Monocytes 0.9 thou/uL (0.11-0.59); #Neutrophils 4.2 thou/uL (1.40-6.50); %Eosinophils 4.1 % (0.0-10.0); %Lymphocytes 34.8 % (21.0-51.0); %Monocytes 10.4 % (0.0-10.0); %Neutrophils 49.7 % (42.0-75.0); Hemoglobin 10.5 g/dL (12.0-16.0); Mean Corpuscular HGB CONC 32.8 g/dL (32.0-36.0); Mean Corpuscular Hemoglobin 32.1 pg (27.0-31.0); Mean Corpuscular Volume 97.9 fL (78.0-98.0); Mean Platelet Volume 7.9 fL (7.4-10.4); Platelet Count 197 thou/uL (130-400); RBC Distribution Width 12.8 % (11.5-14.5); Red Blood Cell (RBC) Count 3.28 mill/uL (4.20-5.40); White Blood Cell (WBC) Count 8.4 thou/uL (4.8-10.8)
[2021-08-26 20:31] LABS: ALT (SGPT) 43 U/L (8-55); AST (SGOT) 34 U/L (5-34); Albumin 3.6 g/dL (3.4-4.8); Alkaline Phosphatase 167 U/L (40-110); Anion Gap 16 mmol/L (10-20); BUN (Urea Nitrogen) 26 mg/dL (9.8-20.1); Bilirubin, Total 0.4 mg/dL (0.2-1.2); Calc. Creatinine Clearance 0 mL/min (70-130); Calcium 8.7 mg/dL (7.8-10.44); Carbon Dioxide 21 mmol/L (23-31); Chloride 102 mmol/L (98-107); Globulin 2.7 g/dL (2.4-3.5); Glucose 85 mg/dL (80-115); Potassium 3.8 mmol/L (3.5-5.1); Protein, Total 6.3 g/dL (5.8-8.1); Sodium 135 mmol/L (136-145)
== END 2021-08-26 21:38 | disposition home or self-care (01) ==
LOC: ERS 19:13
DX: R06.02 Shortness of breath (principal); I12.9 Hypertensive chronic kidney disease with stage 1 through stage 4 chronic kidney disease, or unspecified chronic kidney disease; N18.9 Chronic kidney disease, unspecified; J44.9 Chronic obstructive pulmonary disease, unspecified; F17.210 Nicotine dependence, cigarettes, uncomplicated; E78.5 Hyperlipidemia, unspecified; Z79.899 Other long term (current) drug therapy
CPT/HCPCS: 36415; 71045; 80053; 83880; 84484; 85025; 93005

== ENCOUNTER 2021-10-30 15:34 | Outpatient (CLI) | payer OTHER | END 2021-10-30 15:35 | disposition home or self-care (01) | LOC: RAD 15:34 | PROVIDERS: ATTEND Internal Medicine Critical Care Medicine | DX: R06.00 Dyspnea, unspecified (principal) | CPT/HCPCS: 71046 ==

== ENCOUNTER 2021-11-10 16:39 | Emergency (ER) | payer OTHER ==
[2021-11-10 18:18] LABS: #Eosinphils 0.4 thou/uL (0.0-0.7); #Lymphocytes 2.7 thou/uL (1.20-3.40); #Monocytes 0.9 thou/uL (0.11-0.59); #Neutrophils 5.2 thou/uL (1.40-6.50); %Basophils 0.3 % (0.0-1.0); %Eosinophils 4.4 % (0.0-10.0); %Lymphocytes 28.7 % (21.0-51.0); %Monocytes 9.9 % (0.0-10.0); %Neutrophils 56.8 % (42.0-75.0); Hemoglobin 11.4 g/dL (12.0-16.0); Mean Corpuscular HGB CONC 32.6 g/dL (32.0-36.0); Mean Corpuscular Hemoglobin 31.8 pg (27.0-31.0); Mean Corpuscular Volume 97.6 fL (78.0-98.0); Mean Platelet Volume 8.4 fL (7.4-10.4); Platelet Count 224 thou/uL (130-400); RBC Distribution Width 11.3 % (11.5-14.5); Red Blood Cell (RBC) Count 3.57 mill/uL (4.20-5.40); White Blood Cell (WBC) Count 9.2 thou/uL (4.8-10.8)
[2021-11-10 18:38] LABS: ALT (SGPT) 49 U/L (8-55); AST (SGOT) 104 U/L (5-34); Albumin 3.7 g/dL (3.4-4.8); Alkaline Phosphatase 239 U/L (40-110); Anion Gap 15 mmol/L (10-20); BUN (Urea Nitrogen) 31 mg/dL (9.8-20.1); Bilirubin, Total 0.4 mg/dL (0.2-1.2); Calc. Creatinine Clearance 0 mL/min (70-130); Carbon Dioxide 21 mmol/L (23-31); Chloride 106 mmol/L (98-107); Estimated GFR 26; Globulin 3.1 g/dL (2.4-3.5); Glucose 110 mg/dL (80-115); Potassium 4.2 mmol/L (3.5-5.1); Protein, Total 6.8 g/dL (5.8-8.1); Sodium 138 mmol/L (136-145)
[2021-11-10] MEDS ORDERED: Ondansetron ODT 4 MG TAB ONE (18:41)
[2021-11-10] MEDS ORDERED: Dicyclomine 20 MG/2 ML VIAL ONE (18:41)
[2021-11-10 20:06] LABS: Bilirubin Negative (Negative); Blood, Urine 1+ (Negative); Clarity Clear (Clear); Glucose, Urine (Dipstick) Normal (Negative); Ketone, Urine Negative (Negative); Leukocyte 75 Leu/uL (Negative); Nitrite Negative (Negative); Protein, Urine (Dipstick) 10 mg/dL (Neg-Trace); Specific Gravity, Urine 1.015 (1.002-1.036); Urobilinogen Normal mg/dL (Less than 2); WBC/HPF 21-50 HPF (0-3); pH, Urine 5.5 (5.0-9.0)
[2021-11-10 20:19] LABS: Bacteria/HPF 1+ HPF (None Seen)
[2021-11-10] MEDS ORDERED: Fentanyl 100 MCG/2 ML VIAL ONE (21:31)
== END 2021-11-11 00:13 | disposition home or self-care (01) ==
LOC: ERS 16:39
DX: E86.0 Dehydration (principal); R19.7 Diarrhea, unspecified; R11.2 Nausea with vomiting, unspecified; I12.9 Hypertensive chronic kidney disease with stage 1 through stage 4 chronic kidney disease, or unspecified chronic kidney disease; N18.9 Chronic kidney disease, unspecified; J44.9 Chronic obstructive pulmonary disease, unspecified; E78.5 Hyperlipidemia, unspecified; F17.210 Nicotine dependence, cigarettes, uncomplicated; Z79.899 Other long term (current) drug therapy
CPT/HCPCS: 36415; 74176; 80053; 81003; 81015; 85025; 96372; 96374; J3010; Q0162

== ENCOUNTER 2021-11-18 11:12 | Emergency (ER) | payer OTHER ==
[2021-11-18 12:12] LABS: #Basophils 0.1 thou/uL (0.0-0.2); #Eosinphils 0.5 thou/uL (0.0-0.7); #Lymphocytes 2.7 thou/uL (1.20-3.40); #Monocytes 0.7 thou/uL (0.11-0.59); #Neutrophils 3.2 thou/uL (1.40-6.50); %Basophils 0.7 % (0.0-1.0); %Eosinophils 6.3 % (0.0-10.0); %Lymphocytes 37.7 % (21.0-51.0); %Monocytes 10.3 % (0.0-10.0); Hemoglobin 10.9 g/dL (12.0-16.0); Mean Corpuscular HGB CONC 32.7 g/dL (32.0-36.0); Mean Corpuscular Hemoglobin 31.6 pg (27.0-31.0); Mean Corpuscular Volume 96.5 fL (78.0-98.0); Mean Platelet Volume 8.3 fL (7.4-10.4); Platelet Count 189 thou/uL (130-400); RBC Distribution Width 11.3 % (11.5-14.5); Red Blood Cell (RBC) Count 3.46 mill/uL (4.20-5.40); White Blood Cell (WBC) Count 7.1 thou/uL (4.8-10.8)
[2021-11-18 12:24] LABS: ALT (SGPT) 9 U/L (8-55); AST (SGOT) 13 U/L (5-34); Albumin 3.6 g/dL (3.4-4.8); Alkaline Phosphatase 136 U/L (40-110); Anion Gap 13 mmol/L (10-20); BUN (Urea Nitrogen) 33 mg/dL (9.8-20.1); Bilirubin, Total 0.5 mg/dL (0.2-1.2); Calc. Creatinine Clearance 0 mL/min (70-130); Calcium 8.5 mg/dL (7.8-10.44); Carbon Dioxide 22 mmol/L (23-31); Chloride 108 mmol/L (98-107); Estimated GFR 30; Globulin 2.6 g/dL (2.4-3.5); Glucose 82 mg/dL (80-115); Lipase 32 U/L (8-78); Protein, Total 6.2 g/dL (5.8-8.1); Sodium 139 mmol/L (136-145)
== END 2021-11-18 14:38 | disposition home or self-care (01) ==
LOC: ERS 11:12
DX: R19.7 Diarrhea, unspecified (principal); I12.9 Hypertensive chronic kidney disease with stage 1 through stage 4 chronic kidney disease, or unspecified chronic kidney disease; N18.9 Chronic kidney disease, unspecified; E78.5 Hyperlipidemia, unspecified; J44.9 Chronic obstructive pulmonary disease, unspecified; F17.210 Nicotine dependence, cigarettes, uncomplicated; Z86.73 Personal history of transient ischemic attack (TIA), and cerebral infarction without residual deficits; Z79.82 Long term (current) use of aspirin; Z79.899 Other long term (current) drug therapy
CPT/HCPCS: 80053; 83690; 85025; 96360

== ENCOUNTER 2021-12-16 16:25 | Inpatient (IN) | payer OTHER, MEDICAID ==
[2021-12-16 17:55] LABS: #Eosinphils 0.3 thou/uL (0.0-0.7); #Lymphocytes 1.2 thou/uL (1.20-3.40); #Monocytes 0.3 thou/uL (0.11-0.59); #Neutrophils 4.7 thou/uL (1.40-6.50); %Basophils 0.2 % (0.0-1.0); %Eosinophils 4.9 % (0.0-10.0); %Lymphocytes 18.8 % (21.0-51.0); %Monocytes 4.4 % (0.0-10.0); %Neutrophils 71.8 % (42.0-75.0); Hemoglobin 11.2 g/dL (12.0-16.0); Mean Corpuscular HGB CONC 34.4 g/dL (32.0-36.0); Mean Corpuscular Hemoglobin 31.8 pg (27.0-31.0); Mean Corpuscular Volume 92.3 fL (78.0-98.0); Mean Platelet Volume 8.4 fL (7.4-10.4); Platelet Count 195 thou/uL (130-400); RBC Distribution Width 11.3 % (11.5-14.5); Red Blood Cell (RBC) Count 3.52 mill/uL (4.20-5.40); White Blood Cell (WBC) Count 6.5 thou/uL (4.8-10.8)
[2021-12-16 18:13] LABS: ALT (SGPT) 9 U/L (8-55); AST (SGOT) 13 U/L (5-34); Albumin 3.5 g/dL (3.4-4.8); Alkaline Phosphatase 138 U/L (40-110); Anion Gap 19 mmol/L (10-20); BUN (Urea Nitrogen) 24 mg/dL (9.8-20.1); Bilirubin, Total 0.3 mg/dL (0.2-1.2); Calc. Creatinine Clearance 0 mL/min (70-130); Calcium 8.4 mg/dL (7.8-10.44); Carbon Dioxide 17 mmol/L (23-31); Chloride 107 mmol/L (98-107); Estimated GFR 27; Globulin 2.8 g/dL (2.4-3.5); Glucose 103 mg/dL (80-115); Potassium 4.4 mmol/L (3.5-5.1); Protein, Total 6.3 g/dL (5.8-8.1); Sodium 139 mmol/L (136-145)
[2021-12-17] MEDS ORDERED: Ondansetron PF 4 MG/2 ML Vial IVP PRN (04:03)
[2021-12-17] MEDS ORDERED: Acetaminophen 650 MG Suppository PR PRN (04:03)
[2021-12-17] MEDS ORDERED: Acetaminophen 325 MG TAB PO PRN (04:03)
[2021-12-17] MEDS ORDERED: Ondansetron ODT 4 MG TAB PO PRN (04:03)
[2021-12-17] MEDS ORDERED: Azithromycin 500 MG in Sodium Chloride 0.9% 250 ML 250 ML IVPB SCH (08:00)
[2021-12-17] MEDS ORDERED: methylPREDNISolone Sod Succ 40 MG VIAL IVP SCH (09:00)
[2021-12-17] MEDS: Aggrenox 200-25mg CAP PO SCH ×2 (10:12→21:25)
[2021-12-17] MEDS: Montelukast Sodium 10 mg Tablet PO SCH (10:13)
[2021-12-17] MEDS: Enoxaparin Sodium 30 MG/0.3 ML SYRINGE SC SCH (10:14)
[2021-12-17] MEDS ORDERED: Ipratropium/Albuterol Sulfate 4 GM AER IH PRN (17:52)
[2021-12-17] MEDS: Ipratropium/Albuterol Sulfate 4 GM AER IH SCH (19:11)
[2021-12-17] MEDS: Amlodipine 10 MG TAB PO SCH (20:29)
[2021-12-17] MEDS ORDERED: Atorvastatin Calcium 40 MG TAB PO SCH (21:00)
[2021-12-17] MEDS: Zolpidem Tartrate 5 MG TAB PO PRN (21:29)
[2021-12-18] MEDS: Ipratropium/Albuterol Sulfate 4 GM AER IH SCH ×4 (01:16→17:42)
[2021-12-18 06:44] LABS: #Lymphocytes 1.4 thou/uL (1.20-3.40); #Monocytes 0.7 thou/uL (0.11-0.59); #Neutrophils 4.8 thou/uL (1.40-6.50); %Basophils 0.1 % (0.0-1.0); %Eosinophils 0.2 % (0.0-10.0); %Lymphocytes 20.5 % (21.0-51.0); %Monocytes 10.1 % (0.0-10.0); %Neutrophils 69.1 % (42.0-75.0); Hemoglobin 10.9 g/dL (12.0-16.0); Mean Corpuscular HGB CONC 33.1 g/dL (32.0-36.0); Mean Corpuscular Hemoglobin 30.7 pg (27.0-31.0); Mean Corpuscular Volume 92.8 fL (78.0-98.0); Mean Platelet Volume 8.4 fL (7.4-10.4); Platelet Count 179 thou/uL (130-400); RBC Distribution Width 11.2 % (11.5-14.5); Red Blood Cell (RBC) Count 3.54 mill/uL (4.20-5.40); White Blood Cell (WBC) Count 6.9 thou/uL (4.8-10.8)
[2021-12-18 07:12] LABS: Anion Gap 16 mmol/L (10-20); BUN (Urea Nitrogen) 41 mg/dL (9.8-20.1); Calc. Creatinine Clearance 35 mL/min (70-130); Carbon Dioxide 19 mmol/L (23-31); Chloride 106 mmol/L (98-107); Estimated GFR 31; Glucose 103 mg/dL (80-115); Potassium 4.7 mmol/L (3.5-5.1); Sodium 136 mmol/L (136-145)
[2021-12-18] MEDS: Enoxaparin Sodium 30 MG/0.3 ML SYRINGE SC SCH (08:59)
[2021-12-18] MEDS: Montelukast Sodium 10 mg Tablet PO SCH (08:59)
[2021-12-18] MEDS: predniSONE 20 MG TAB PO SCH (08:59)
[2021-12-18] MEDS: Aggrenox 200-25mg CAP PO SCH ×2 (09:00→20:37)
[2021-12-18] MEDS ORDERED: Escitalopram Oxalate 20 mg Tablet PO SCH (10:30)
[2021-12-18] MEDS: HYDROcodone/Acetaminophen 10/325 mg Tablet PO PRN ×3 (11:36→22:02)
[2021-12-18] MEDS: Benzonatate 100 MG CAP PO PRN ×3 (11:36→22:02)
[2021-12-18] MEDS: Mometasone 100 MCG/PUFF (1 INHALER) INH SCH (11:42)
[2021-12-18] MEDS: Dextromethorphan Polistirex 30 MG/5 ML (89 ML BOTTLE) PO PRN (17:39)
[2021-12-18] MEDS: Amlodipine 10 MG TAB PO SCH (20:37)
[2021-12-18] MEDS: (RENAL) NIRMATRELVIR 150 MG/RITONAVIR 100 MG TABLET PO SCH (20:39)
[2021-12-18] MEDS: Melatonin 3 MG TAB PO PRN (22:03)
[2021-12-18] MEDS: Zolpidem Tartrate 5 MG TAB PO PRN (22:10)
[2021-12-19] MEDS: Ipratropium/Albuterol Sulfate 4 GM AER IH SCH ×3 (00:51→23:23)
[2021-12-19] MEDS: Mometasone 100 MCG/PUFF (1 INHALER) INH SCH ×2 (06:28→23:24)
[2021-12-19] MEDS: Aggrenox 200-25mg CAP PO SCH ×2 (08:00→22:09)
[2021-12-19] MEDS: (RENAL) NIRMATRELVIR 150 MG/RITONAVIR 100 MG TABLET PO SCH ×2 (08:00→22:10)
[2021-12-19] MEDS: Escitalopram Oxalate 20 mg Tablet PO SCH (08:00)
[2021-12-19] MEDS: Montelukast Sodium 10 mg Tablet PO SCH (08:00)
[2021-12-19] MEDS: Enoxaparin Sodium 30 MG/0.3 ML SYRINGE SC SCH (08:00)
[2021-12-19] MEDS: HYDROcodone/Acetaminophen 10/325 mg Tablet PO PRN ×3 (08:00→22:20)
[2021-12-19] MEDS: hydrOXYzine 25 MG TAB PO SCH (08:00)
[2021-12-19] MEDS: Folic Acid 1 MG TAB PO SCH (08:00)
[2021-12-19] MEDS: predniSONE 20 MG TAB PO SCH (08:00)
[2021-12-19] MEDS: Nicotine 14 MG PATCH TD SCH (18:33)
[2021-12-19] MEDS: methylPREDNISolone Sod Succ 40 MG VIAL IVP SCH ×2 (18:33→22:21)
[2021-12-19] MEDS: Amlodipine 10 MG TAB PO SCH (22:11)
[2021-12-19] MEDS: Zolpidem Tartrate 5 MG TAB PO PRN (22:19)
[2021-12-20] MEDS: Ipratropium/Albuterol Sulfate 4 GM AER IH SCH ×4 (01:23→18:50)
[2021-12-20] MEDS: methylPREDNISolone Sod Succ 40 MG VIAL IVP SCH ×3 (05:13→15:49)
[2021-12-20] MEDS: Mometasone 100 MCG/PUFF (1 INHALER) INH SCH ×2 (05:13→18:25)
[2021-12-20 07:06] LABS: #Lymphocytes 0.7 thou/uL (1.20-3.40); #Monocytes 0.1 thou/uL (0.11-0.59); %Basophils 0.6 % (0.0-1.0); %Eosinophils 0.1 % (0.0-10.0); %Lymphocytes 19.4 % (21.0-51.0); %Monocytes 2.5 % (0.0-10.0); %Neutrophils 77.4 % (42.0-75.0); Hemoglobin 9.7 g/dL (12.0-16.0); Mean Corpuscular HGB CONC 32.8 g/dL (32.0-36.0); Mean Corpuscular Hemoglobin 30.2 pg (27.0-31.0); Mean Corpuscular Volume 92.1 fL (78.0-98.0); Mean Platelet Volume 8.2 fL (7.4-10.4); Platelet Count 188 thou/uL (130-400); Red Blood Cell (RBC) Count 3.22 mill/uL (4.20-5.40); White Blood Cell (WBC) Count 3.8 thou/uL (4.8-10.8)
[2021-12-20 07:23] LABS: ALT (SGPT) 12 U/L (8-55); AST (SGOT) 10 U/L (5-34); Albumin 3.3 g/dL (3.4-4.8); Alkaline Phosphatase 100 U/L (40-110); Anion Gap 17 mmol/L (10-20); BUN (Urea Nitrogen) 51 mg/dL (9.8-20.1); Bilirubin, Total 0.2 mg/dL (0.2-1.2); Calc. Creatinine Clearance 30 mL/min (70-130); Calcium 8.1 mg/dL (7.8-10.44); Carbon Dioxide 19 mmol/L (23-31); Chloride 100 mmol/L (98-107); Estimated GFR 25; Globulin 2.6 g/dL (2.4-3.5); Glucose 231 mg/dL (80-115); Potassium 4.5 mmol/L (3.5-5.1); Protein, Total 5.9 g/dL (5.8-8.1); Sodium 131 mmol/L (136-145)
[2021-12-20] MEDS: Montelukast Sodium 10 mg Tablet PO SCH (08:21)
[2021-12-20] MEDS: Escitalopram Oxalate 20 mg Tablet PO SCH (08:21)
[2021-12-20] MEDS: Enoxaparin Sodium 30 MG/0.3 ML SYRINGE SC SCH (08:21)
[2021-12-20] MEDS: hydrOXYzine 25 MG TAB PO SCH (08:21)
[2021-12-20] MEDS: Aggrenox 200-25mg CAP PO SCH ×2 (08:21→21:21)
[2021-12-20] MEDS: Folic Acid 1 MG TAB PO SCH (08:21)
[2021-12-20] MEDS: (RENAL) NIRMATRELVIR 150 MG/RITONAVIR 100 MG TABLET PO SCH ×2 (08:22→21:24)
[2021-12-20] MEDS: HYDROcodone/Acetaminophen 10/325 mg Tablet PO PRN (09:01)
[2021-12-20] MEDS: Sodium Chloride 0.9% 1,000 ML IV SCH (15:49)
[2021-12-20] MEDS: HYDROcodone/Acetaminophen 5/325 mg Tablet PO PRN ×2 (15:50→21:22)
[2021-12-20] MEDS: Nicotine 14 MG PATCH TD SCH (15:58)
[2021-12-20] MEDS: Benzonatate 100 MG CAP PO PRN (21:21)
[2021-12-20] MEDS: Melatonin 3 MG TAB PO PRN (21:22)
[2021-12-20] MEDS: Zolpidem Tartrate 5 MG TAB PO PRN (21:22)
[2021-12-20] MEDS: Amlodipine 10 MG TAB PO SCH (21:23)
[2021-12-20] MEDS: clonazePAM 0.5 MG TAB PO SCH (21:23)
[2021-12-21] MEDS: methylPREDNISolone Sod Succ 40 MG VIAL IVP SCH ×5 (01:21→23:37)
[2021-12-21] MEDS: Ipratropium/Albuterol Sulfate 4 GM AER IH SCH ×4 (01:24→17:40)
[2021-12-21] MEDS: Mometasone 100 MCG/PUFF (1 INHALER) INH SCH ×2 (05:39→17:22)
[2021-12-21] MEDS: HYDROcodone/Acetaminophen 5/325 mg Tablet PO PRN (05:50)
[2021-12-21 06:35] LABS: #Lymphocytes 0.8 thou/uL (1.20-3.40); #Monocytes 0.2 thou/uL (0.11-0.59); #Neutrophils 5.2 thou/uL (1.40-6.50); %Eosinophils 0.1 % (0.0-10.0); %Lymphocytes 12.2 % (21.0-51.0); %Monocytes 3.4 % (0.0-10.0); %Neutrophils 84.3 % (42.0-75.0); Hemoglobin 10.7 g/dL (12.0-16.0); Mean Corpuscular HGB CONC 33.2 g/dL (32.0-36.0); Mean Corpuscular Hemoglobin 30.7 pg (27.0-31.0); Mean Corpuscular Volume 92.6 fL (78.0-98.0); Mean Platelet Volume 8.1 fL (7.4-10.4); Platelet Count 221 thou/uL (130-400); Red Blood Cell (RBC) Count 3.48 mill/uL (4.20-5.40); White Blood Cell (WBC) Count 6.2 thou/uL (4.8-10.8)
[2021-12-21 06:57] LABS: ALT (SGPT) 20 U/L (8-55); AST (SGOT) 14 U/L (5-34); Albumin 3.5 g/dL (3.4-4.8); Alkaline Phosphatase 101 U/L (40-110); Anion Gap 15 mmol/L (10-20); BUN (Urea Nitrogen) 50 mg/dL (9.8-20.1); Bilirubin, Total 0.2 mg/dL (0.2-1.2); Calc. Creatinine Clearance 28 mL/min (70-130); Calcium 8.3 mg/dL (7.8-10.44); Carbon Dioxide 20 mmol/L (23-31); Chloride 102 mmol/L (98-107); Estimated GFR 24; Globulin 2.6 g/dL (2.4-3.5); Glucose 238 mg/dL (80-115); Potassium 4.2 mmol/L (3.5-5.1); Protein, Total 6.1 g/dL (5.8-8.1); Sodium 133 mmol/L (136-145)
[2021-12-21] MEDS: hydrOXYzine 25 MG TAB PO SCH (08:14)
[2021-12-21] MEDS: Montelukast Sodium 10 mg Tablet PO SCH (08:14)
[2021-12-21] MEDS: clonazePAM 0.5 MG TAB PO SCH ×2 (08:14→20:41)
[2021-12-21] MEDS: Folic Acid 1 MG TAB PO SCH (08:14)
[2021-12-21] MEDS: Aggrenox 200-25mg CAP PO SCH ×2 (08:14→20:42)
[2021-12-21] MEDS: Escitalopram Oxalate 20 mg Tablet PO SCH (08:15)
[2021-12-21] MEDS: Enoxaparin Sodium 30 MG/0.3 ML SYRINGE SC SCH (08:15)
[2021-12-21] MEDS: (RENAL) NIRMATRELVIR 150 MG/RITONAVIR 100 MG TABLET PO SCH ×2 (08:15→20:42)
[2021-12-21] MEDS: Sodium Chloride 0.9% 1,000 ML IV SCH (08:16)
[2021-12-21] MEDS: tiZANidine HCl 4 MG TAB PO PRN (11:24)
[2021-12-21] MEDS: Benzonatate 100 MG CAP PO PRN ×2 (11:24→21:45)
[2021-12-21] MEDS: Nicotine 14 MG PATCH TD SCH (17:06)
[2021-12-21] MEDS: HYDROcodone/Acetaminophen 10/325 mg Tablet PO PRN ×2 (17:06→23:38)
[2021-12-21] MEDS: Amlodipine 10 MG TAB PO SCH (20:55)
[2021-12-21] MEDS: Zolpidem Tartrate 5 MG TAB PO PRN (21:45)
[2021-12-21] MEDS: Melatonin 3 MG TAB PO PRN (21:46)
[2021-12-22] MEDS: HYDROcodone/Acetaminophen 10/325 mg Tablet PO PRN (06:06)
[2021-12-22] MEDS: Ipratropium/Albuterol Sulfate 4 GM AER IH SCH ×4 (06:18→18:03)
[2021-12-22] MEDS: methylPREDNISolone Sod Succ 40 MG VIAL IVP SCH ×2 (06:38→11:47)
[2021-12-22] MEDS: Sodium Chloride 0.9% 1,000 ML IV SCH (06:39)
[2021-12-22 06:59] LABS: #Eosinphils 0.1 thou/uL (0.0-0.7); #Lymphocytes 0.7 thou/uL (1.20-3.40); #Monocytes 0.3 thou/uL (0.11-0.59); #Neutrophils 6.5 thou/uL (1.40-6.50); %Lymphocytes 9.2 % (21.0-51.0); %Monocytes 3.5 % (0.0-10.0); %Neutrophils 86.3 % (42.0-75.0); Mean Corpuscular HGB CONC 32.9 g/dL (32.0-36.0); Mean Corpuscular Hemoglobin 30.4 pg (27.0-31.0); Mean Corpuscular Volume 92.5 fL (78.0-98.0); Mean Platelet Volume 9.2 fL (7.4-10.4); Platelet Count 187 thou/uL (130-400); RBC Distribution Width 11.3 % (11.5-14.5); Red Blood Cell (RBC) Count 3.63 mill/uL (4.20-5.40); White Blood Cell (WBC) Count 7.5 thou/uL (4.8-10.8)
[2021-12-22 07:27] LABS: ALT (SGPT) 60 U/L (8-55); AST (SGOT) 77 U/L (5-34); Albumin 3.4 g/dL (3.4-4.8); Alkaline Phosphatase 97 U/L (40-110); Anion Gap 18 mmol/L (10-20); BUN (Urea Nitrogen) 59 mg/dL (9.8-20.1); Bilirubin, Total 0.2 mg/dL (0.2-1.2); Calc. Creatinine Clearance 30 mL/min (70-130); Carbon Dioxide 18 mmol/L (23-31); Chloride 102 mmol/L (98-107); Estimated GFR 26; Globulin 3.3 g/dL (2.4-3.5); Glucose 224 mg/dL (80-115); Protein, Total 6.7 g/dL (5.8-8.1); Sodium 133 mmol/L (136-145)
[2021-12-22] MEDS: Mometasone 100 MCG/PUFF (1 INHALER) INH SCH ×2 (08:30→18:03)
[2021-12-22] MEDS: (RENAL) NIRMATRELVIR 150 MG/RITONAVIR 100 MG TABLET PO SCH (08:30)
[2021-12-22] MEDS: Escitalopram Oxalate 20 mg Tablet PO SCH (08:31)
[2021-12-22] MEDS: hydrOXYzine 25 MG TAB PO SCH (08:31)
[2021-12-22] MEDS: Montelukast Sodium 10 mg Tablet PO SCH (08:31)
[2021-12-22] MEDS: Folic Acid 1 MG TAB PO SCH (08:31)
[2021-12-22] MEDS: Aggrenox 200-25mg CAP PO SCH ×2 (08:32→23:01)
[2021-12-22] MEDS: clonazePAM 0.5 MG TAB PO SCH ×2 (08:32→23:00)
[2021-12-22] MEDS: Enoxaparin Sodium 30 MG/0.3 ML SYRINGE SC SCH (08:35)
[2021-12-22] MEDS: HYDROcodone/Acetaminophen 5/325 mg Tablet PO PRN (12:19)
[2021-12-22] MEDS: Dextromethorphan Polistirex 30 MG/5 ML (89 ML BOTTLE) PO PRN (12:21)
[2021-12-22] MEDS: Nicotine 14 MG PATCH TD SCH (15:40)
[2021-12-22] MEDS: Amlodipine 10 MG TAB PO SCH (23:00)
[2021-12-23] MEDS: Sodium Chloride 0.9% 1,000 ML IV SCH (00:39)
[2021-12-23] MEDS: Dextromethorphan Polistirex 30 MG/5 ML (89 ML BOTTLE) PO PRN ×3 (00:43→20:12)
[2021-12-23] MEDS: HYDROcodone/Acetaminophen 5/325 mg Tablet PO PRN (00:43)
[2021-12-23] MEDS: Ipratropium/Albuterol Sulfate 4 GM AER IH SCH ×4 (00:55→18:02)
[2021-12-23] MEDS: Zolpidem Tartrate 5 MG TAB PO PRN ×2 (02:29→22:25)
[2021-12-23] MEDS: Melatonin 3 MG TAB PO PRN ×2 (02:29→20:12)
[2021-12-23 04:52] VITALS: BMI 27.4
[2021-12-23 06:51] LABS: ALT (SGPT) 35 U/L (8-55); AST (SGOT) 14 U/L (5-34); Albumin 3.2 g/dL (3.4-4.8); Alkaline Phosphatase 88 U/L (40-110); Anion Gap 14 mmol/L (10-20); BUN (Urea Nitrogen) 59 mg/dL (9.8-20.1); Bilirubin, Total 0.2 mg/dL (0.2-1.2); Calc. Creatinine Clearance 28 mL/min (70-130); Calcium 8.1 mg/dL (7.8-10.44); Carbon Dioxide 19 mmol/L (23-31); Chloride 104 mmol/L (98-107); Estimated GFR 24; Globulin 2.6 g/dL (2.4-3.5); Glucose 388 mg/dL (80-115); Potassium 4.8 mmol/L (3.5-5.1); Protein, Total 5.8 g/dL (5.8-8.1); Sodium 132 mmol/L (136-145)
[2021-12-23] MEDS: Mometasone 100 MCG/PUFF (1 INHALER) INH SCH ×2 (08:43→18:01)
[2021-12-23] MEDS: Enoxaparin Sodium 30 MG/0.3 ML SYRINGE SC SCH (08:43)
[2021-12-23] MEDS: Escitalopram Oxalate 20 mg Tablet PO SCH (08:44)
[2021-12-23] MEDS: predniSONE 20 MG TAB PO SCH (08:44)
[2021-12-23] MEDS: Folic Acid 1 MG TAB PO SCH (08:44)
[2021-12-23] MEDS: Aggrenox 200-25mg CAP PO SCH ×2 (08:44→20:12)
[2021-12-23] MEDS: hydrOXYzine 25 MG TAB PO SCH (08:44)
[2021-12-23] MEDS: clonazePAM 0.5 MG TAB PO SCH ×2 (08:45→20:10)
[2021-12-23] MEDS: Montelukast Sodium 10 mg Tablet PO SCH (08:45)
[2021-12-23] MEDS: HYDROcodone/Acetaminophen 10/325 mg Tablet PO PRN ×3 (08:51→20:10)
[2021-12-23] MEDS: Nicotine 14 MG PATCH TD SCH (16:23)
[2021-12-23] MEDS: Amlodipine 10 MG TAB PO SCH (20:09)
[2021-12-23] MEDS: Promethazine HCl 6.25 MG/5 ML Syrup PO PRN ×2 (20:12→22:25)
[2021-12-23] MEDS: tiZANidine HCl 4 MG TAB PO PRN (22:25)
[2021-12-24] MEDS: HYDROcodone/Acetaminophen 10/325 mg Tablet PO PRN ×3 (01:49→22:39)
[2021-12-24] MEDS: Ipratropium/Albuterol Sulfate 4 GM AER IH SCH ×4 (01:53→21:07)
[2021-12-24] MEDS: Benzonatate 100 MG CAP PO PRN ×2 (05:00→11:35)
[2021-12-24] MEDS: Mometasone 100 MCG/PUFF (1 INHALER) INH SCH ×2 (05:05→17:11)
[2021-12-24] MEDS: Dextromethorphan Polistirex 30 MG/5 ML (89 ML BOTTLE) PO PRN (08:56)
[2021-12-24] MEDS: Enoxaparin Sodium 30 MG/0.3 ML SYRINGE SC SCH (08:57)
[2021-12-24] MEDS: clonazePAM 0.5 MG TAB PO SCH ×2 (08:57→20:21)
[2021-12-24] MEDS: Folic Acid 1 MG TAB PO SCH (08:58)
[2021-12-24] MEDS: Saccharomyces boulardii 250 MG CAP PO SCH (08:58)
[2021-12-24] MEDS: Aggrenox 200-25mg CAP PO SCH ×2 (08:58→20:21)
[2021-12-24] MEDS: Escitalopram Oxalate 20 mg Tablet PO SCH (08:58)
[2021-12-24] MEDS: Montelukast Sodium 10 mg Tablet PO SCH (08:58)
[2021-12-24] MEDS: predniSONE 20 MG TAB PO SCH (08:58)
[2021-12-24] MEDS: hydrOXYzine 25 MG TAB PO SCH (09:04)
[2021-12-24 11:25] LABS: Anion Gap 14 mmol/L (10-20); BUN (Urea Nitrogen) 58 mg/dL (9.8-20.1); Calc. Creatinine Clearance 30 mL/min (70-130); Calcium 7.9 mg/dL (7.8-10.44); Carbon Dioxide 18 mmol/L (23-31); Chloride 100 mmol/L (98-107); Estimated GFR 26; Glucose 208 mg/dL (80-115); Potassium 4.4 mmol/L (3.5-5.1); Sodium 128 mmol/L (136-145)
[2021-12-24] MEDS ORDERED: Cefepime 1 GM in Sodium Chloride 0.9% 100 ML IVPB SCH ×2 (12:00→21:00)
[2021-12-24] MEDS ORDERED: Albuterol 200 PUFF (6.7GM INHALER) INH PRN (16:34)
[2021-12-24 17:00] LABS: Actual Bicarbonate (HCO3a) 17.9 mEq/L (22-28); Base Excess (BEa) -7.1 mEq/L (-2.0 to +3.0); CO2 Tension 34.5 mmHg (35.0-45.0); Calcium, Ionized (arterial) 1.13 mmol/L (1.12-1.30); Carboxyhemoglobin (COHb) 0.1 gm% (0.0-3.0); Hemoglobin (Hb) 11.6 g/dL (12.0-16.0); O2 Tension (PaO2), arterial 64.3 mmHg (> 80.0); Potassium - ABG Lab 5.08 mmol/L (3.70-5.30); pH, Arterial 7.33 (7.35-7.45)
[2021-12-24] MEDS ORDERED: Vancomycin 1 GM in Premix Bag 1 BAG IVPB SCH (17:00)
[2021-12-24] MEDS ORDERED: Vancomycin Sliding Scale (Wt 71-99) FS SCH (17:00)
[2021-12-24 17:04] LABS: ALV-art Gradient 177.775 mmHg (0-20); Puncture Site RRA
[2021-12-24] MEDS: Nicotine 14 MG PATCH TD SCH (17:06)
[2021-12-24] MEDS: Amlodipine 10 MG TAB PO SCH (20:21)
[2021-12-24] MEDS: Zolpidem Tartrate 5 MG TAB PO PRN (22:28)
[2021-12-24] MEDS: Melatonin 3 MG TAB PO PRN (22:28)
[2021-12-25 04:02] LABS: Anion Gap 16 mmol/L (10-20); BUN (Urea Nitrogen) 59 mg/dL (9.8-20.1); Calc. Creatinine Clearance 28 mL/min (70-130); Calcium 8.4 mg/dL (7.8-10.44); Carbon Dioxide 17 mmol/L (23-31); Chloride 100 mmol/L (98-107); Estimated GFR 24; Glucose 144 mg/dL (80-115); Potassium 5.3 mmol/L (3.5-5.1); Sodium 128 mmol/L (136-145)
[2021-12-25 04:18] LABS: Band 36 % (5-11); Lymphocytes 2 % (21-51); MDiff Complete? YES; Mean Corpuscular HGB CONC 32.2 g/dL (32.0-36.0); Mean Corpuscular Hemoglobin 30.3 pg (27.0-31.0); Mean Corpuscular Volume 94.2 fL (78.0-98.0); Mean Platelet Volume 8.1 fL (7.4-10.4); Metamyelocyte 3 % (0-0); Monocytes 8 % (0-10); Neutrophil 51 % (42-75); Platelet Count 221 thou/uL (130-400); Platelet Morphology Comment Appears Adequate; RBC Distribution Width 11.6 % (11.5-14.5); RBC Morphology Normal; Red Blood Cell (RBC) Count 3.63 mill/uL (4.20-5.40); White Blood Cell (WBC) Count 25.1 thou/uL (4.8-10.8)
[2021-12-25] MEDS: HYDROcodone/Acetaminophen 10/325 mg Tablet PO PRN ×3 (05:13→23:04)
[2021-12-25] MEDS: Benzonatate 100 MG CAP PO PRN (05:40)
[2021-12-25] MEDS ORDERED: Insulin Regular 300 UNITS/3 ML VIAL SC SCH (10:15)
[2021-12-25] MEDS: clonazePAM 0.5 MG TAB PO SCH ×2 (10:22→21:02)
[2021-12-25] MEDS: Saccharomyces boulardii 250 MG CAP PO SCH (10:22)
[2021-12-25] MEDS: Montelukast Sodium 10 mg Tablet PO SCH (10:22)
[2021-12-25] MEDS: Folic Acid 1 MG TAB PO SCH (10:22)
[2021-12-25] MEDS: Cholecalciferol 1,000 UNITS (25 MCG) TAB PO SCH (10:22)
[2021-12-25] MEDS: Escitalopram Oxalate 20 mg Tablet PO SCH (10:22)
[2021-12-25] MEDS: Aggrenox 200-25mg CAP PO SCH ×2 (10:22→21:02)
[2021-12-25] MEDS: Zinc Sulfate 220 MG CAP PO SCH (10:23)
[2021-12-25] MEDS: hydrOXYzine 25 MG TAB PO SCH (10:23)
[2021-12-25] MEDS: Enoxaparin Sodium 30 MG/0.3 ML SYRINGE SC SCH (10:23)
[2021-12-25] MEDS: Ascorbic Acid 500 mg Chewable Tablet PO SCH (10:23)
[2021-12-25] MEDS ORDERED: Dextrose 50% Abboject 50 ML SYRINGE IVP PRN (10:30)
[2021-12-25] MEDS ORDERED: Dextrose 5% in Water 1,000 ML IV PRN (10:30)
[2021-12-25] MEDS ORDERED: Piperacillin/Tazobactam 3.375 GM in Sodium Chloride 0.9% 100 ML IVPB SCH (11:15)
[2021-12-25] MEDS: predniSONE 20 MG TAB PO SCH (11:16)
[2021-12-25] MEDS: Ipratropium/Albuterol Sulfate 4 GM AER IH SCH (11:17)
[2021-12-25] MEDS: Mometasone 100 MCG/PUFF (1 INHALER) INH SCH ×2 (11:18→18:56)
[2021-12-25] MEDS ORDERED: Ipratropium/Albuterol Sulfate 4 GM AER IH SCH ×2 (12:30)
[2021-12-25] MEDS: Sodium Chloride 3% (15 ML) NEB NEB SCH ×2 (13:35→18:56)
[2021-12-25 14:13] LABS: Potassium 4.8 mmol/L (3.5-5.1)
[2021-12-25] MEDS: Piperacillin/Tazobactam 3.375 GM in Sodium Chloride 0.9% 100 ML IVPB SCH ×2 (14:27→23:06)
[2021-12-25] MEDS: Nicotine 14 MG PATCH TD SCH (14:27)
[2021-12-25] MEDS: Sodium Bicarbonate Tab 325 MG TAB PO SCH ×2 (14:27→21:02)
[2021-12-25] MEDS: Azithromycin 500 MG in Sodium Chloride 0.9% 250 ML 250 ML IVPB SCH (14:28)
[2021-12-25] MEDS ORDERED: LOKELMA 10 GM PACKET PO SCH (15:00)
[2021-12-25 15:52] LABS: Creatinine, Urine 41.12 mg/dL (47-110)
[2021-12-25] MEDS ORDERED: Vancomycin 1 GM in Premix Bag 1 BAG IVPB SCH (17:00)
[2021-12-25] MEDS: Amlodipine 10 MG TAB PO SCH (21:02)
[2021-12-25] MEDS: Melatonin 3 MG TAB PO PRN (23:06)
[2021-12-26] MEDS: Zolpidem Tartrate 5 MG TAB PO PRN (01:05)
[2021-12-26] MEDS: Benzonatate 100 MG CAP PO PRN (01:05)
[2021-12-26] MEDS: tiZANidine HCl 4 MG TAB PO PRN (03:19)
[2021-12-26] MEDS: HYDROcodone/Acetaminophen 10/325 mg Tablet PO PRN ×2 (05:27→20:40)
[2021-12-26] MEDS: Ipratropium/Albuterol Sulfate 4 GM AER IH SCH ×3 (05:53→18:39)
[2021-12-26] MEDS: Mometasone 100 MCG/PUFF (1 INHALER) INH SCH ×2 (06:00→18:39)
[2021-12-26 07:01] LABS: Mean Corpuscular HGB CONC 32.5 g/dL (32.0-36.0); Mean Corpuscular Hemoglobin 30.4 pg (27.0-31.0); Mean Corpuscular Volume 93.6 fL (78.0-98.0); Mean Platelet Volume 8.2 fL (7.4-10.4); Platelet Count 185 thou/uL (130-400); RBC Distribution Width 11.6 % (11.5-14.5); Red Blood Cell (RBC) Count 3.29 mill/uL (4.20-5.40); White Blood Cell (WBC) Count 25.9 thou/uL (4.8-10.8)
[2021-12-26 07:12] LABS: Anion Gap 14 mmol/L (10-20); BUN (Urea Nitrogen) 58 mg/dL (9.8-20.1); Calc. Creatinine Clearance 27 mL/min (70-130); Calcium 8.1 mg/dL (7.8-10.44); Carbon Dioxide 18 mmol/L (23-31); Chloride 100 mmol/L (98-107); Estimated GFR 23; Glucose 120 mg/dL (80-115); Potassium 4.3 mmol/L (3.5-5.1); Sodium 128 mmol/L (136-145)
[2021-12-26] MEDS: Sodium Chloride 3% (15 ML) NEB NEB SCH ×3 (07:19→18:39)
[2021-12-26] MEDS: predniSONE 20 MG TAB PO SCH ×2 (08:17→09:32)
[2021-12-26] MEDS ORDERED: Insulin Regular 300 UNITS/3 ML VIAL SC SCH (09:00)
[2021-12-26] MEDS: Sodium Bicarbonate Tab 325 MG TAB PO SCH ×3 (09:31→20:39)
[2021-12-26] MEDS: Cholecalciferol 1,000 UNITS (25 MCG) TAB PO SCH (09:31)
[2021-12-26] MEDS: hydrOXYzine 25 MG TAB PO SCH (09:31)
[2021-12-26] MEDS: Saccharomyces boulardii 250 MG CAP PO SCH (09:31)
[2021-12-26] MEDS: Ascorbic Acid 500 mg Chewable Tablet PO SCH (09:31)
[2021-12-26] MEDS: Escitalopram Oxalate 20 mg Tablet PO SCH (09:32)
[2021-12-26] MEDS: Montelukast Sodium 10 mg Tablet PO SCH (09:32)
[2021-12-26] MEDS: Folic Acid 1 MG TAB PO SCH (09:32)
[2021-12-26] MEDS: Aggrenox 200-25mg CAP PO SCH ×2 (09:33→20:39)
[2021-12-26] MEDS: Zinc Sulfate 220 MG CAP PO SCH (09:33)
[2021-12-26] MEDS: Piperacillin/Tazobactam 3.375 GM in Sodium Chloride 0.9% 100 ML IVPB SCH ×2 (09:33→10:15)
[2021-12-26] MEDS: Enoxaparin Sodium 30 MG/0.3 ML SYRINGE SC SCH (09:33)
[2021-12-26 10:13] LABS: Actual Bicarbonate (HCO3a) 20.1 mEq/L (22-28); Base Excess (BEa) -4.5 mEq/L (-2.0 to +3.0); Calcium, Ionized (arterial) 1.12 mmol/L (1.12-1.30); Carboxyhemoglobin (COHb) 0.3 gm% (0.0-3.0); Hemoglobin (Hb) 10.8 g/dL (12.0-16.0); O2 Tension (PaO2), arterial 62.8 mmHg (> 80.0); pH, Arterial 7.38 (7.35-7.45)
[2021-12-26] MEDS: clonazePAM 0.5 MG TAB PO SCH (10:16)
[2021-12-26 10:22] LABS: Band 30 % (5-11); Lymphocytes 2 % (21-51); MDiff Complete? YES; Monocytes 8 % (0-10); Neutrophil 60 % (42-75); Platelet Morphology Comment Appears Adequate; Polychromasia SLIGHT = 2-3 cells (100X) (0-2/hpf)
[2021-12-26 10:23] LABS: Puncture Site RRA
[2021-12-26] MEDS: Cefepime 1 GM in Sodium Chloride 0.9% 100 ML IVPB SCH (12:32)
[2021-12-26] MEDS: Azithromycin 500 MG in Sodium Chloride 0.9% 250 ML 250 ML IVPB SCH (13:59)
[2021-12-26] MEDS ORDERED: metroNIDAZOLE 500 MG in Premix Bag 1 BAG IVPB SCH (14:00)
[2021-12-26 17:25] LABS: Vancomycin, Random 16.4 ug/mL (See Comment)
[2021-12-26] MEDS: metroNIDAZOLE 500 MG in Premix Bag 1 BAG IVPB SCH (17:38)
[2021-12-26] MEDS: Nicotine 14 MG PATCH TD SCH (17:38)
[2021-12-26] MEDS ORDERED: Vancomycin HCl 500 MG in Sodium Chloride 0.9% 100 ML IVPB SCH (18:37)
[2021-12-26] MEDS: Amlodipine 10 MG TAB PO SCH (20:39)
[2021-12-27] MEDS: metroNIDAZOLE 500 MG in Premix Bag 1 BAG IVPB SCH ×3 (01:55→17:56)
[2021-12-27] MEDS: Mometasone 100 MCG/PUFF (1 INHALER) INH SCH ×2 (06:40→18:28)
[2021-12-27] MEDS: Ipratropium/Albuterol Sulfate 4 GM AER IH SCH ×3 (06:41→18:27)
[2021-12-27] MEDS: Sodium Chloride 3% (15 ML) NEB NEB SCH ×3 (06:41→18:28)
[2021-12-27 07:05] LABS: Anion Gap 18 mmol/L (10-20); BUN (Urea Nitrogen) 66 mg/dL (9.8-20.1); Calc. Creatinine Clearance 25 mL/min (70-130); Calcium 8.7 mg/dL (7.8-10.44); Carbon Dioxide 15 mmol/L (23-31); Cardiac Risk 3.6 (Less than 4.5); Chloride 103 mmol/L (98-107); Cholesterol 163 mg/dl (< 200 Desired); Estimated GFR 19; Glucose 188 mg/dL (80-115); HDL Cholesterol 45 mg/dL (>60 Neg Risk); LDL Cholesterol, Calculated 86 mg/dL; Potassium 5.2 mmol/L (3.5-5.1); Sodium 131 mmol/L (136-145); Triglycerides 159 mg/dL (Less than 150)
[2021-12-27 07:45] LABS: Band 13 % (5-11); Hemoglobin 10.9 g/dL (12.0-16.0); MDiff Complete? YES; Mean Corpuscular HGB CONC 34.4 g/dL (32.0-36.0); Mean Corpuscular Hemoglobin 32.2 pg (27.0-31.0); Mean Corpuscular Volume 93.8 fL (78.0-98.0); Mean Platelet Volume 9.3 fL (7.4-10.4); Monocytes 4 % (0-10); Neutrophil 83 % (42-75); Platelet Count 183 thou/uL (130-400); Platelet Morphology Comment Appears Adequate; Polychromasia SLIGHT = 2-3 cells (100X) (0-2/hpf); RBC Distribution Width 11.8 % (11.5-14.5); White Blood Cell (WBC) Count 35.6 thou/uL (4.8-10.8)
[2021-12-27] MEDS ORDERED: Insulin Regular 300 UNITS/3 ML VIAL SC SCH (09:00)
[2021-12-27] MEDS ORDERED: Lactated Ringer's 1,000 ML IV SCH (09:00)
[2021-12-27] MEDS: Sodium Bicarbonate Tab 325 MG TAB PO SCH ×2 (09:52→16:34)
[2021-12-27] MEDS: Zinc Sulfate 220 MG CAP PO SCH (09:52)
[2021-12-27] MEDS: Montelukast Sodium 10 mg Tablet PO SCH (09:52)
[2021-12-27] MEDS: Saccharomyces boulardii 250 MG CAP PO SCH (09:52)
[2021-12-27] MEDS: hydrOXYzine 25 MG TAB PO SCH (09:52)
[2021-12-27] MEDS: Escitalopram Oxalate 20 mg Tablet PO SCH (09:52)
[2021-12-27] MEDS: Ascorbic Acid 500 mg Chewable Tablet PO SCH (09:53)
[2021-12-27] MEDS: Cholecalciferol 1,000 UNITS (25 MCG) TAB PO SCH (09:53)
[2021-12-27] MEDS: Aggrenox 200-25mg CAP PO SCH ×2 (09:53→20:30)
[2021-12-27] MEDS: Enoxaparin Sodium 30 MG/0.3 ML SYRINGE SC SCH (09:53)
[2021-12-27] MEDS: Folic Acid 1 MG TAB PO SCH (09:53)
[2021-12-27] MEDS: predniSONE 20 MG TAB PO SCH (09:53)
[2021-12-27] MEDS: Benzonatate 100 MG CAP PO PRN ×2 (10:19→20:33)
[2021-12-27] MEDS: HYDROcodone/Acetaminophen 10/325 mg Tablet PO PRN (10:19)
[2021-12-27 11:58] LABS: Hemoglobin A1c 5.6 % (4.0-6.0)
[2021-12-27] MEDS: Sodium Bicarbonate 150 MEQ in Dextrose 5% in Water 1,000 ML IV SCH (12:07)
[2021-12-27] MEDS: Cefepime 1 GM in Sodium Chloride 0.9% 100 ML IVPB SCH (12:08)
[2021-12-27] MEDS: Azithromycin 500 MG in Sodium Chloride 0.9% 250 ML 250 ML IVPB SCH (13:23)
[2021-12-27 16:52] LABS: Anion Gap 18 mmol/L (10-20); BUN (Urea Nitrogen) 63 mg/dL (9.8-20.1); Calc. Creatinine Clearance 25 mL/min (70-130); Calcium 8.4 mg/dL (7.8-10.44); Carbon Dioxide 16 mmol/L (23-31); Chloride 101 mmol/L (98-107); Estimated GFR 19; Glucose 205 mg/dL (80-115); Potassium 3.8 mmol/L (3.5-5.1); Sodium 131 mmol/L (136-145)
[2021-12-27 17:19] LABS: Vancomycin, Random 19.4 ug/mL (See Comment)
[2021-12-27] MEDS: Nicotine 14 MG PATCH TD SCH (17:56)
[2021-12-27] MEDS ORDERED: Vancomycin HCl 500 MG in Sodium Chloride 0.9% 100 ML IVPB SCH ×2 (18:15→21:00)
[2021-12-27] MEDS: traZODone HCl 50 MG TAB PO PRN (20:30)
[2021-12-27] MEDS: Amlodipine 10 MG TAB PO SCH (20:30)
[2021-12-27] MEDS: Melatonin 3 MG TAB PO PRN (20:30)
[2021-12-27] MEDS: HYDROcodone/Acetaminophen 5/325 mg Tablet PO PRN (22:56)
[2021-12-28] MEDS: metroNIDAZOLE 500 MG in Premix Bag 1 BAG IVPB SCH ×3 (02:05→17:02)
[2021-12-28 04:31] LABS: Anion Gap 15 mmol/L (10-20); BUN (Urea Nitrogen) 65 mg/dL (9.8-20.1); Calc. Creatinine Clearance 25 mL/min (70-130); Calcium 8.1 mg/dL (7.8-10.44); Carbon Dioxide 21 mmol/L (23-31); Chloride 100 mmol/L (98-107); Estimated GFR 18; Glucose 245 mg/dL (80-115); Potassium 3.6 mmol/L (3.5-5.1); Sodium 132 mmol/L (136-145)
[2021-12-28 04:49] LABS: Band 13 % (5-11); Hemoglobin 9.5 g/dL (12.0-16.0); Lymphocytes 2 % (21-51); MDiff Complete? YES; Mean Corpuscular HGB CONC 33.1 g/dL (32.0-36.0); Mean Corpuscular Hemoglobin 30.9 pg (27.0-31.0); Mean Corpuscular Volume 93.1 fL (78.0-98.0); Mean Platelet Volume 8.8 fL (7.4-10.4); Monocytes 1 % (0-10); Neutrophil 84 % (42-75); Platelet Count 207 thou/uL (130-400); RBC Distribution Width 11.7 % (11.5-14.5); Red Blood Cell (RBC) Count 3.09 mill/uL (4.20-5.40); White Blood Cell (WBC) Count 19.9 thou/uL (4.8-10.8)
[2021-12-28] MEDS ORDERED: Insulin Regular 300 UNITS/3 ML VIAL SC PRN (05:15)
[2021-12-28] MEDS: Sodium Bicarbonate 150 MEQ in Dextrose 5% in Water 1,000 ML IV SCH ×2 (06:01→19:42)
[2021-12-28] MEDS: Ipratropium/Albuterol Sulfate 4 GM AER IH SCH ×3 (06:45→18:28)
[2021-12-28] MEDS: Sodium Chloride 3% (15 ML) NEB NEB SCH ×3 (06:46→18:28)
[2021-12-28] MEDS: Mometasone 100 MCG/PUFF (1 INHALER) INH SCH ×2 (06:46→18:28)
[2021-12-28] MEDS: Enoxaparin Sodium 30 MG/0.3 ML SYRINGE SC SCH (08:26)
[2021-12-28] MEDS: Escitalopram Oxalate 20 mg Tablet PO SCH (08:28)
[2021-12-28] MEDS: Saccharomyces boulardii 250 MG CAP PO SCH (08:30)
[2021-12-28] MEDS: Ascorbic Acid 500 mg Chewable Tablet PO SCH (08:30)
[2021-12-28] MEDS: Cholecalciferol 1,000 UNITS (25 MCG) TAB PO SCH (08:31)
[2021-12-28] MEDS: predniSONE 20 MG TAB PO SCH (08:32)
[2021-12-28] MEDS: Zinc Sulfate 220 MG CAP PO SCH (08:34)
[2021-12-28] MEDS: Folic Acid 1 MG TAB PO SCH (08:34)
[2021-12-28] MEDS: Montelukast Sodium 10 mg Tablet PO SCH (08:35)
[2021-12-28] MEDS: Aggrenox 200-25mg CAP PO SCH ×2 (08:35→20:35)
[2021-12-28] MEDS: hydrOXYzine 25 MG TAB PO SCH (08:36)
[2021-12-28] MEDS: Insulin Regular 300 UNITS/3 ML VIAL SC PRN ×3 (08:38→16:52)
[2021-12-28] MEDS: HYDROcodone/Acetaminophen 5/325 mg Tablet PO PRN ×3 (11:16→23:46)
[2021-12-28] MEDS: Benzonatate 100 MG CAP PO PRN ×2 (11:28→22:01)
[2021-12-28] MEDS: Cefepime 1 GM in Sodium Chloride 0.9% 100 ML IVPB SCH (13:20)
[2021-12-28] MEDS: Azithromycin 500 MG in Sodium Chloride 0.9% 250 ML 250 ML IVPB SCH (14:13)
[2021-12-28] MEDS: Nicotine 14 MG PATCH TD SCH (15:52)
[2021-12-28 17:29] LABS: Vancomycin, Trough 20.2 ug/mL
[2021-12-28] MEDS: Amlodipine 10 MG TAB PO SCH (20:35)
[2021-12-28] MEDS: Melatonin 3 MG TAB PO PRN (22:01)
[2021-12-28] MEDS: traZODone HCl 50 MG TAB PO PRN (22:01)
[2021-12-29] MEDS: metroNIDAZOLE 500 MG in Premix Bag 1 BAG IVPB SCH ×3 (02:22→18:30)
[2021-12-29] MEDS: Sodium Bicarbonate 150 MEQ in Dextrose 5% in Water 1,000 ML IV SCH (02:23)
[2021-12-29] MEDS: HYDROcodone/Acetaminophen 5/325 mg Tablet PO PRN ×4 (03:50→20:37)
[2021-12-29 04:25] LABS: Vancomycin, Random 19.8 ug/mL (See Comment)
[2021-12-29 04:26] LABS: Anion Gap 18 mmol/L (10-20); BUN (Urea Nitrogen) 67 mg/dL (9.8-20.1); Calc. Creatinine Clearance 26 mL/min (70-130); Calcium 8.6 mg/dL (7.8-10.44); Carbon Dioxide 22 mmol/L (23-31); Chloride 98 mmol/L (98-107); Estimated GFR 18; Glucose 203 mg/dL (80-115); Potassium 3.1 mmol/L (3.5-5.1); Sodium 135 mmol/L (136-145)
[2021-12-29 04:50] LABS: Band 9 % (5-11); Hemoglobin 9.8 g/dL (12.0-16.0); Lymphocytes 4 % (21-51); MDiff Complete? YES; Mean Corpuscular HGB CONC 33.2 g/dL (32.0-36.0); Mean Corpuscular Hemoglobin 31.3 pg (27.0-31.0); Mean Corpuscular Volume 94.3 fL (78.0-98.0); Mean Platelet Volume 8.8 fL (7.4-10.4); Myelocyte 2 % (0-0); Neutrophil 85 % (42-75); Platelet Count 215 thou/uL (130-400); RBC Distribution Width 11.9 % (11.5-14.5); Red Blood Cell (RBC) Count 3.12 mill/uL (4.20-5.40)
[2021-12-29] MEDS: Insulin Regular 300 UNITS/3 ML VIAL SC PRN (06:04)
[2021-12-29] MEDS: Mometasone 100 MCG/PUFF (1 INHALER) INH SCH ×2 (06:55→18:23)
[2021-12-29] MEDS: Ipratropium/Albuterol Sulfate 4 GM AER IH SCH ×3 (06:55→18:23)
[2021-12-29] MEDS: Sodium Chloride 3% (15 ML) NEB NEB SCH ×3 (06:56→18:24)
[2021-12-29] MEDS: Ascorbic Acid 500 mg Chewable Tablet PO SCH (09:03)
[2021-12-29] MEDS: Aggrenox 200-25mg CAP PO SCH ×2 (09:03→20:37)
[2021-12-29] MEDS: Montelukast Sodium 10 mg Tablet PO SCH (09:03)
[2021-12-29] MEDS: predniSONE 20 MG TAB PO SCH (09:03)
[2021-12-29] MEDS: Cholecalciferol 1,000 UNITS (25 MCG) TAB PO SCH (09:03)
[2021-12-29] MEDS: Escitalopram Oxalate 20 mg Tablet PO SCH (09:03)
[2021-12-29] MEDS: Zinc Sulfate 220 MG CAP PO SCH (09:03)
[2021-12-29] MEDS: Saccharomyces boulardii 250 MG CAP PO SCH (09:04)
[2021-12-29] MEDS: Enoxaparin Sodium 30 MG/0.3 ML SYRINGE SC SCH (09:04)
[2021-12-29] MEDS: Folic Acid 1 MG TAB PO SCH (09:04)
[2021-12-29] MEDS: hydrOXYzine 25 MG TAB PO SCH (09:05)
[2021-12-29] MEDS ORDERED: Potassium Chloride 20 MEQ TAB PO SCH (09:30)
[2021-12-29] MEDS: Cefepime 1 GM in Sodium Chloride 0.9% 100 ML IVPB SCH (13:17)
[2021-12-29] MEDS: Nicotine 14 MG PATCH TD SCH ×3 (16:11→16:33)
[2021-12-29] MEDS: Azithromycin 500 MG in Sodium Chloride 0.9% 250 ML 250 ML IVPB SCH (16:11)
[2021-12-29] MEDS: cefTRIAXone\\ROCEPHIN 1 GM in Sodium Chloride 0.9% 100 ML IVPB SCH (16:18)
[2021-12-29] MEDS ORDERED: Vancomycin HCl 500 MG in Sodium Chloride 0.9% 100 ML IVPB SCH (17:00)
[2021-12-29] MEDS: Benzonatate 100 MG CAP PO PRN (20:37)
[2021-12-29] MEDS: Amlodipine 10 MG TAB PO SCH (20:39)
[2021-12-29] MEDS: Melatonin 3 MG TAB PO PRN (23:21)
[2021-12-29] MEDS: traZODone HCl 50 MG TAB PO PRN (23:21)
[2021-12-30] MEDS: metroNIDAZOLE 500 MG in Premix Bag 1 BAG IVPB SCH (02:41)
[2021-12-30 04:27] LABS: Anion Gap 13 mmol/L (10-20); BUN (Urea Nitrogen) 66 mg/dL (9.8-20.1); Calc. Creatinine Clearance 25 mL/min (70-130); Calcium 8.3 mg/dL (7.8-10.44); Carbon Dioxide 26 mmol/L (23-31); Chloride 99 mmol/L (98-107); Estimated GFR 17; Glucose 223 mg/dL (80-115); Hemoglobin 8.8 g/dL (12.0-16.0); Mean Corpuscular HGB CONC 32.4 g/dL (32.0-36.0); Mean Corpuscular Hemoglobin 30.4 pg (27.0-31.0); Mean Corpuscular Volume 93.9 fL (78.0-98.0); Mean Platelet Volume 8.4 fL (7.4-10.4); Platelet Count 208 thou/uL (130-400); Potassium 3.3 mmol/L (3.5-5.1); RBC Distribution Width 12.1 % (11.5-14.5); Sodium 135 mmol/L (136-145); White Blood Cell (WBC) Count 16.5 thou/uL (4.8-10.8)
[2021-12-30 04:54] LABS: Band 5 % (5-11); Lymphocytes 5 % (21-51); MDiff Complete? YES; Monocytes 7 % (0-10); Neutrophil 83 % (42-75)
[2021-12-30] MEDS: Insulin Regular 300 UNITS/3 ML VIAL SC PRN (06:11)
[2021-12-30] MEDS: HYDROcodone/Acetaminophen 5/325 mg Tablet PO PRN ×3 (06:46→17:55)
[2021-12-30] MEDS ORDERED: predniSONE 20 MG TAB PO SCH (08:00)
[2021-12-30] MEDS: Mometasone 100 MCG/PUFF (1 INHALER) INH SCH ×2 (08:03→18:32)
[2021-12-30] MEDS: Ipratropium/Albuterol Sulfate 4 GM AER IH SCH ×3 (08:07→18:32)
[2021-12-30] MEDS: Sodium Chloride 3% (15 ML) NEB NEB SCH ×3 (08:07→18:33)
[2021-12-30] MEDS ORDERED: Polyethylene Glycol 3350 17 GM Packet PO PRN (08:15)
[2021-12-30] MEDS ORDERED: Potassium Chloride 20 MEQ TAB PO SCH (08:30)
[2021-12-30] MEDS: hydrOXYzine 25 MG TAB PO SCH (09:36)
[2021-12-30] MEDS: Ascorbic Acid 500 mg Chewable Tablet PO SCH (09:36)
[2021-12-30] MEDS: Escitalopram Oxalate 20 mg Tablet PO SCH (09:37)
[2021-12-30] MEDS: Zinc Sulfate 220 MG CAP PO SCH (09:37)
[2021-12-30] MEDS: Cholecalciferol 1,000 UNITS (25 MCG) TAB PO SCH (09:37)
[2021-12-30] MEDS: Polyethylene Glycol 3350 17 GM Packet PO SCH (09:37)
[2021-12-30] MEDS: Enoxaparin Sodium 30 MG/0.3 ML SYRINGE SC SCH (09:37)
[2021-12-30] MEDS: Aggrenox 200-25mg CAP PO SCH ×2 (09:37→20:12)
[2021-12-30] MEDS: Folic Acid 1 MG TAB PO SCH (09:37)
[2021-12-30] MEDS: Montelukast Sodium 10 mg Tablet PO SCH (09:37)
[2021-12-30] MEDS: Saccharomyces boulardii 250 MG CAP PO SCH (09:37)
[2021-12-30] MEDS: Azithromycin 500 MG in Sodium Chloride 0.9% 250 ML 250 ML IVPB SCH (14:03)
[2021-12-30] MEDS: cefTRIAXone\\ROCEPHIN 1 GM in Sodium Chloride 0.9% 100 ML IVPB SCH (14:03)
[2021-12-30] MEDS: Benzonatate 100 MG CAP PO PRN (20:12)
[2021-12-30] MEDS: Amlodipine 10 MG TAB PO SCH (20:13)
[2021-12-31] MEDS: traZODone HCl 50 MG TAB PO PRN ×2 (00:30→20:59)
[2021-12-31] MEDS: Melatonin 3 MG TAB PO PRN ×2 (00:30→21:03)
[2021-12-31 04:38] LABS: Anion Gap 14 mmol/L (10-20); BUN (Urea Nitrogen) 67 mg/dL (9.8-20.1); Calc. Creatinine Clearance 25 mL/min (70-130); Calcium 7.9 mg/dL (7.8-10.44); Carbon Dioxide 24 mmol/L (23-31); Chloride 102 mmol/L (98-107); Estimated GFR 17; Glucose 188 mg/dL (80-115); Potassium 3.8 mmol/L (3.5-5.1); Sodium 136 mmol/L (136-145)
[2021-12-31 05:13] LABS: Band 9 % (5-11); Hemoglobin 8.3 g/dL (12.0-16.0); Lymphocytes 6 % (21-51); MDiff Complete? YES; Mean Corpuscular HGB CONC 31.9 g/dL (32.0-36.0); Mean Corpuscular Volume 94.1 fL (78.0-98.0); Mean Platelet Volume 8.5 fL (7.4-10.4); Monocytes 3 % (0-10); Neutrophil 82 % (42-75); Platelet Count 204 thou/uL (130-400); Red Blood Cell (RBC) Count 2.78 mill/uL (4.20-5.40); White Blood Cell (WBC) Count 17.6 thou/uL (4.8-10.8)
[2021-12-31] MEDS: Sodium Chloride 3% (15 ML) NEB NEB SCH ×3 (06:45→18:50)
[2021-12-31] MEDS: Ipratropium/Albuterol Sulfate 4 GM AER IH SCH ×3 (06:49→18:48)
[2021-12-31] MEDS: Mometasone 100 MCG/PUFF (1 INHALER) INH SCH ×2 (06:49→18:48)
[2021-12-31] MEDS ORDERED: predniSONE 5 MG TAB PO SCH (08:00)
[2021-12-31] MEDS: Ascorbic Acid 500 mg Chewable Tablet PO SCH (08:38)
[2021-12-31] MEDS: Zinc Sulfate 220 MG CAP PO SCH (08:38)
[2021-12-31] MEDS: Cholecalciferol 1,000 UNITS (25 MCG) TAB PO SCH (08:38)
[2021-12-31] MEDS: Montelukast Sodium 10 mg Tablet PO SCH (08:38)
[2021-12-31] MEDS: Enoxaparin Sodium 30 MG/0.3 ML SYRINGE SC SCH (08:39)
[2021-12-31] MEDS: Escitalopram Oxalate 20 mg Tablet PO SCH (08:39)
[2021-12-31] MEDS: Folic Acid 1 MG TAB PO SCH (08:39)
[2021-12-31] MEDS: hydrOXYzine 25 MG TAB PO SCH (08:39)
[2021-12-31] MEDS: Aggrenox 200-25mg CAP PO SCH ×2 (08:39→20:59)
[2021-12-31] MEDS: Saccharomyces boulardii 250 MG CAP PO SCH (08:39)
[2021-12-31] MEDS: Polyethylene Glycol 3350 17 GM Packet PO SCH (08:40)
[2021-12-31] MEDS: HYDROcodone/Acetaminophen 5/325 mg Tablet PO PRN ×2 (08:42→18:36)
[2021-12-31] MEDS ORDERED: Furosemide 40 MG/4 ML VIAL SLOW IVP SCH (10:30)
[2021-12-31] MEDS ORDERED: Potassium Chloride 20 MEQ TAB PO SCH (10:30)
[2021-12-31] MEDS: Cefepime 1 GM in Sodium Chloride 0.9% 100 ML IVPB SCH ×2 (11:06→20:59)
[2021-12-31] MEDS: Insulin Regular 300 UNITS/3 ML VIAL SC PRN (11:07)
[2021-12-31] MEDS: Nicotine 14 MG PATCH TD SCH (16:04)
[2021-12-31] MEDS: Amlodipine 10 MG TAB PO SCH (20:59)
[2022-01-01 05:08] LABS: Band 7 % (5-11); Hemoglobin 9.1 g/dL (12.0-16.0); Lymphocytes 7 % (21-51); MDiff Complete? YES; Mean Corpuscular HGB CONC 32.5 g/dL (32.0-36.0); Mean Corpuscular Hemoglobin 30.7 pg (27.0-31.0); Mean Corpuscular Volume 94.6 fL (78.0-98.0); Mean Platelet Volume 8.7 fL (7.4-10.4); Monocytes 3 % (0-10); Neutrophil 83 % (42-75); Platelet Count 219 thou/uL (130-400); RBC Distribution Width 12.3 % (11.5-14.5); Red Blood Cell (RBC) Count 2.97 mill/uL (4.20-5.40); White Blood Cell (WBC) Count 18.2 thou/uL (4.8-10.8)
[2022-01-01 05:15] LABS: ALT (SGPT) 26 U/L (8-55); AST (SGOT) 20 U/L (5-34); Albumin 2.4 g/dL (3.4-4.8); Alkaline Phosphatase 187 U/L (40-110); Anion Gap 17 mmol/L (10-20); BUN (Urea Nitrogen) 67 mg/dL (9.8-20.1); Bilirubin, Total 0.4 mg/dL (0.2-1.2); Calc. Creatinine Clearance 24 mL/min (70-130); Calcium 8.5 mg/dL (7.8-10.44); Carbon Dioxide 21 mmol/L (23-31); Chloride 103 mmol/L (98-107); Estimated GFR 17; Globulin 2.9 g/dL (2.4-3.5); Glucose 95 mg/dL (80-115); Potassium 4.3 mmol/L (3.5-5.1); Protein, Total 5.3 g/dL (5.8-8.1); Sodium 137 mmol/L (136-145)
[2022-01-01] MEDS: Ipratropium/Albuterol Sulfate 4 GM AER IH SCH ×3 (06:46→20:16)
[2022-01-01] MEDS: Mometasone 100 MCG/PUFF (1 INHALER) INH SCH ×2 (06:48→20:17)
[2022-01-01] MEDS: Sodium Chloride 3% (15 ML) NEB NEB SCH ×3 (06:49→20:17)
[2022-01-01] MEDS ORDERED: Vancomycin Sliding Scale (Wt 71-99) FS SCH (08:45)
[2022-01-01] MEDS ORDERED: Vancomycin 1 GM in Premix Bag 1 BAG IVPB SCH (09:00)
[2022-01-01 09:12] LABS: Vancomycin, Random 12.6 ug/mL (See Comment)
[2022-01-01] MEDS: Saccharomyces boulardii 250 MG CAP PO SCH (09:26)
[2022-01-01] MEDS: Folic Acid 1 MG TAB PO SCH (09:26)
[2022-01-01] MEDS: Ascorbic Acid 500 mg Chewable Tablet PO SCH (09:26)
[2022-01-01] MEDS: Aggrenox 200-25mg CAP PO SCH ×2 (09:26→20:52)
[2022-01-01] MEDS: Escitalopram Oxalate 20 mg Tablet PO SCH (09:26)
[2022-01-01] MEDS: hydrOXYzine 25 MG TAB PO SCH (09:26)
[2022-01-01] MEDS: predniSONE 5 MG TAB PO SCH (09:26)
[2022-01-01] MEDS: Cholecalciferol 1,000 UNITS (25 MCG) TAB PO SCH (09:26)
[2022-01-01] MEDS: Cefepime 1 GM in Sodium Chloride 0.9% 100 ML IVPB SCH (09:27)
[2022-01-01] MEDS: Zinc Sulfate 220 MG CAP PO SCH (09:27)
[2022-01-01] MEDS: Polyethylene Glycol 3350 17 GM Packet PO SCH (09:27)
[2022-01-01] MEDS: Enoxaparin Sodium 30 MG/0.3 ML SYRINGE SC SCH (09:27)
[2022-01-01] MEDS: Montelukast Sodium 10 mg Tablet PO SCH (09:27)
[2022-01-01] MEDS: HYDROcodone/Acetaminophen 5/325 mg Tablet PO PRN ×3 (09:40→20:49)
[2022-01-01] MEDS ORDERED: Vancomycin HCl 750 MG in Sodium Chloride 0.9% 250 ML 250 ML IVPB SCH (10:00)
[2022-01-01] MEDS ORDERED: Furosemide 40 MG/4 ML VIAL SLOW IVP SCH (12:15)
[2022-01-01] MEDS: Nicotine 14 MG PATCH TD SCH (17:12)
[2022-01-01] MEDS: Insulin Regular 300 UNITS/3 ML VIAL SC PRN (17:12)
[2022-01-01] MEDS: Benzonatate 100 MG CAP PO PRN (17:21)
[2022-01-01] MEDS: traZODone HCl 50 MG TAB PO PRN (20:46)
[2022-01-01] MEDS: Melatonin 3 MG TAB PO PRN (20:46)
[2022-01-01] MEDS: Cefdinir 300 MG CAP PO SCH (20:46)
[2022-01-01] MEDS: Amlodipine 10 MG TAB PO SCH (20:46)
[2022-01-02 04:06] LABS: #Lymphocytes 1.4 thou/uL (1.20-3.40); #Monocytes 0.7 thou/uL (0.11-0.59); #Neutrophils 16.2 thou/uL (1.40-6.50); %Basophils 0.2 % (0.0-1.0); %Eosinophils 0.2 % (0.0-10.0); %Lymphocytes 7.5 % (21.0-51.0); %Monocytes 3.5 % (0.0-10.0); %Neutrophils 88.5 % (42.0-75.0); Hemoglobin 7.8 g/dL (12.0-16.0); Mean Corpuscular HGB CONC 32.2 g/dL (32.0-36.0); Mean Corpuscular Hemoglobin 30.2 pg (27.0-31.0); Mean Corpuscular Volume 93.6 fL (78.0-98.0); Mean Platelet Volume 8.5 fL (7.4-10.4); Platelet Count 190 thou/uL (130-400); RBC Distribution Width 12.2 % (11.5-14.5); Red Blood Cell (RBC) Count 2.57 mill/uL (4.20-5.40); White Blood Cell (WBC) Count 18.3 thou/uL (4.8-10.8)
[2022-01-02 04:19] LABS: Anion Gap 15 mmol/L (10-20); BUN (Urea Nitrogen) 58 mg/dL (9.8-20.1); Calc. Creatinine Clearance 25 mL/min (70-130); Calcium 8.1 mg/dL (7.8-10.44); Carbon Dioxide 23 mmol/L (23-31); Chloride 104 mmol/L (98-107); Estimated GFR 18; Glucose 111 mg/dL (80-115); Potassium 3.9 mmol/L (3.5-5.1); Sodium 138 mmol/L (136-145)
[2022-01-02] MEDS: Ipratropium/Albuterol Sulfate 4 GM AER IH SCH ×3 (07:45→18:35)
[2022-01-02] MEDS: Mometasone 100 MCG/PUFF (1 INHALER) INH SCH ×2 (07:46→18:37)
[2022-01-02] MEDS: Sodium Chloride 3% (15 ML) NEB NEB SCH (07:46)
[2022-01-02] MEDS: Polyethylene Glycol 3350 17 GM Packet PO SCH (09:14)
[2022-01-02] MEDS: Enoxaparin Sodium 30 MG/0.3 ML SYRINGE SC SCH (09:14)
[2022-01-02] MEDS: predniSONE 5 MG TAB PO SCH (09:15)
[2022-01-02] MEDS: Cefdinir 300 MG CAP PO SCH (09:15)
[2022-01-02] MEDS: hydrOXYzine 25 MG TAB PO SCH (09:15)
[2022-01-02] MEDS: Ascorbic Acid 500 mg Chewable Tablet PO SCH (09:15)
[2022-01-02] MEDS: Aggrenox 200-25mg CAP PO SCH ×2 (09:15→20:09)
[2022-01-02] MEDS: Escitalopram Oxalate 20 mg Tablet PO SCH (09:15)
[2022-01-02] MEDS: Saccharomyces boulardii 250 MG CAP PO SCH (09:15)
[2022-01-02] MEDS: Folic Acid 1 MG TAB PO SCH (09:15)
[2022-01-02] MEDS: Cholecalciferol 1,000 UNITS (25 MCG) TAB PO SCH (09:15)
[2022-01-02] MEDS: Zinc Sulfate 220 MG CAP PO SCH (09:16)
[2022-01-02] MEDS: Montelukast Sodium 10 mg Tablet PO SCH (09:16)
[2022-01-02] MEDS: HYDROcodone/Acetaminophen 5/325 mg Tablet PO PRN ×3 (09:24→20:20)
[2022-01-02] MEDS: Benzonatate 100 MG CAP PO PRN ×2 (09:25→15:38)
[2022-01-02 09:41] LABS: Vancomycin, Random 18.8 ug/mL (See Comment)
[2022-01-02] MEDS ORDERED: Furosemide 40 MG/4 ML VIAL SLOW IVP SCH (09:45)
[2022-01-02] MEDS ORDERED: Potassium Chloride 20 MEQ TAB PO SCH (11:30)
[2022-01-02] MEDS: Insulin Regular 300 UNITS/3 ML VIAL SC PRN ×2 (12:14→17:20)
[2022-01-02] MEDS: Nicotine 14 MG PATCH TD SCH (17:21)
[2022-01-02] MEDS: Amlodipine 10 MG TAB PO SCH (20:09)
[2022-01-02] MEDS: Melatonin 3 MG TAB PO PRN (20:10)
[2022-01-02] MEDS: Promethazine HCl 6.25 MG/5 ML Syrup PO PRN (21:18)
[2022-01-02] MEDS: Dextromethorphan Polistirex 30 MG/5 ML (89 ML BOTTLE) PO PRN (21:18)
[2022-01-03 04:02] LABS: #Eosinphils 0.1 thou/uL (0.0-0.7); #Lymphocytes 1.4 thou/uL (1.20-3.40); #Monocytes 0.9 thou/uL (0.11-0.59); #Neutrophils 15.9 thou/uL (1.40-6.50); %Eosinophils 0.3 % (0.0-10.0); %Lymphocytes 7.4 % (21.0-51.0); %Monocytes 5.1 % (0.0-10.0); %Neutrophils 87.2 % (42.0-75.0); Hemoglobin 8.1 g/dL (12.0-16.0); Mean Corpuscular HGB CONC 31.3 g/dL (32.0-36.0); Mean Corpuscular Hemoglobin 29.8 pg (27.0-31.0); Mean Corpuscular Volume 95.2 fL (78.0-98.0); Mean Platelet Volume 8.5 fL (7.4-10.4); Platelet Count 194 thou/uL (130-400); RBC Distribution Width 12.3 % (11.5-14.5); Red Blood Cell (RBC) Count 2.73 mill/uL (4.20-5.40); White Blood Cell (WBC) Count 18.3 thou/uL (4.8-10.8)
[2022-01-03 04:28] LABS: Anion Gap 14 mmol/L (10-20); BUN (Urea Nitrogen) 55 mg/dL (9.8-20.1); Calc. Creatinine Clearance 26 mL/min (70-130); Calcium 8.2 mg/dL (7.8-10.44); Carbon Dioxide 23 mmol/L (23-31); Chloride 104 mmol/L (98-107); Estimated GFR 19; Glucose 98 mg/dL (80-115); Potassium 4.3 mmol/L (3.5-5.1); Sodium 137 mmol/L (136-145)
[2022-01-03] MEDS: Ascorbic Acid 500 mg Chewable Tablet PO SCH (08:49)
[2022-01-03] MEDS: Enoxaparin Sodium 30 MG/0.3 ML SYRINGE SC SCH (08:49)
[2022-01-03] MEDS: Escitalopram Oxalate 20 mg Tablet PO SCH (08:49)
[2022-01-03] MEDS: Folic Acid 1 MG TAB PO SCH (08:50)
[2022-01-03] MEDS: Cholecalciferol 1,000 UNITS (25 MCG) TAB PO SCH (08:50)
[2022-01-03] MEDS: Zinc Sulfate 220 MG CAP PO SCH (08:50)
[2022-01-03] MEDS: predniSONE 5 MG TAB PO SCH (08:50)
[2022-01-03] MEDS: Saccharomyces boulardii 250 MG CAP PO SCH (08:50)
[2022-01-03] MEDS: Montelukast Sodium 10 mg Tablet PO SCH (08:50)
[2022-01-03] MEDS: hydrOXYzine 25 MG TAB PO SCH (08:50)
[2022-01-03] MEDS: Polyethylene Glycol 3350 17 GM Packet PO SCH (08:52)
[2022-01-03] MEDS ORDERED: Cefdinir 300 MG CAP PO SCH (09:00)
[2022-01-03] MEDS: Aggrenox 200-25mg CAP PO SCH (09:08)
[2022-01-03 09:33] VITALS: BP 140/62; TEMP 98.4
[2022-01-03] MEDS: HYDROcodone/Acetaminophen 5/325 mg Tablet PO PRN (11:42)
[2022-01-03] MEDS: Benzonatate 100 MG CAP PO PRN (11:42)
== END 2022-01-03 11:50 | DRG 177 ==
LOC: ERS 16:25 → MSONC 20:43 → T4-B 12-17 14:10 → OBSVTOIN 12-18 17:20 → IMCU/EMU 12-24 20:07 → 2NO 12-31 11:54
PROVIDERS: ADMIT Student in an Organized Health Care Education/Training Program; ATTEND Student in an Organized Health Care Education/Training Program
PROC: 8E0ZXY6 Isolation (ICD-10-PCS; principal; 2021-12-18)
DX: U07.1 COVID-19 (principal); G93.41 Metabolic encephalopathy; J12.82 Pneumonia due to coronavirus disease 2019; J96.01 Acute respiratory failure with hypoxia; J69.0 Pneumonitis due to inhalation of food and vomit; J15.9 Unspecified bacterial pneumonia; N17.0 Acute kidney failure with tubular necrosis; E87.2 Acidosis; J44.1 Chronic obstructive pulmonary disease with (acute) exacerbation; N18.4 Chronic kidney disease, stage 4 (severe); N17.9 Acute kidney failure, unspecified; J44.0 Chronic obstructive pulmonary disease with (acute) lower respiratory infection; E87.1 Hypo-osmolality and hyponatremia; Z20.822 Contact with and (suspected) exposure to COVID-19; I12.9 Hypertensive chronic kidney disease with stage 1 through stage 4 chronic kidney disease, or unspecified chronic kidney disease; D63.1 Anemia in chronic kidney disease; F17.210 Nicotine dependence, cigarettes, uncomplicated; E78.5 Hyperlipidemia, unspecified; M54.9 Dorsalgia, unspecified; G89.29 Other chronic pain; E87.5 Hyperkalemia; Y95 Nosocomial condition; F41.1 Generalized anxiety disorder; K21.9 Gastro-esophageal reflux disease without esophagitis; F41.0 Panic disorder [episodic paroxysmal anxiety]; R73.9 Hyperglycemia, unspecified; E87.6 Hypokalemia; Z88.2 Allergy status to sulfonamides; Z88.1 Allergy status to other antibiotic agents; Z88.5 Allergy status to narcotic agent; Z88.8 Allergy status to other drugs, medicaments and biological substances; Z79.82 Long term (current) use of aspirin; Z79.899 Other long term (current) drug therapy; Z79.51 Long term (current) use of inhaled steroids; Z90.49 Acquired absence of other specified parts of digestive tract; Z90.710 Acquired absence of both cervix and uterus; Z90.09 Acquired absence of other part of head and neck; Z98.890 Other specified postprocedural states
CPT/HCPCS: 36415; 36416; 36600; 71045; 74176; 74230; 76770; 80048; 80053; 80061; 80202; 82570; 82805; 83036; 83880; 83930; 83935; 84145; 84300; 84484; 85025; 86140; 87081; 93005; 94640; 96372; 96374; G0378; J0456; J0692; J0696; J1650; J1815; J1940; J2543; J2920; J3370; J3490; J3535; J7050; J7070; J7120; J7512; J7620; Q0162; Q0169; U0003; U0005

== ENCOUNTER 2022-01-12 14:00 | Inpatient (IN) | payer OTHER, MEDICAID ==
[2022-01-12] MEDS ORDERED: Heparin 1,000 UNITS/ML VIAL ONE (15:43)
[2022-01-12] MEDS ORDERED: Acetaminophen 325 MG TAB PO PRN (17:52)
[2022-01-12 18:00] VITALS: BMI 29.5
[2022-01-12] MEDS ORDERED: Meropenem 1 GM in Sodium Chloride 0.9% 100 ML IVPB SCH (18:15)
[2022-01-12] MEDS: Atorvastatin Calcium 40 MG TAB PO SCH (20:24)
[2022-01-12] MEDS ORDERED: Vancomycin 1.5 GRAM/300 ML BAG 1.5 GM in Premix Bag 1 BAG IVPB SCH (21:00)
[2022-01-12] MEDS: Meropenem 1 GM in Sodium Chloride 0.9% 100 ML IVPB SCH (23:25)
[2022-01-12] MEDS: HYDROcodone/Acetaminophen 5/325 mg Tablet PO PRN (23:34)
[2022-01-13 05:15] LABS: #Eosinphils 0.1 thou/uL (0.0-0.7); #Lymphocytes 0.5 thou/uL (1.20-3.40); #Monocytes 0.3 thou/uL (0.11-0.59); #Neutrophils 4.7 thou/uL (1.40-6.50); %Eosinophils 1.2 % (0.0-10.0); %Lymphocytes 8.2 % (21.0-51.0); %Monocytes 5.7 % (0.0-10.0); Hemoglobin 8.6 g/dL (12.0-16.0); Mean Corpuscular HGB CONC 32.4 g/dL (32.0-36.0); Mean Corpuscular Hemoglobin 30.6 pg (27.0-31.0); Mean Corpuscular Volume 94.7 fL (78.0-98.0); Mean Platelet Volume 7.5 fL (7.4-10.4); Platelet Count 363 thou/uL (130-400); White Blood Cell (WBC) Count 5.6 thou/uL (4.8-10.8)
[2022-01-13 05:22] LABS: INR-International Normal Ratio 1.1
[2022-01-13 05:29] LABS: Anion Gap 15 mmol/L (10-20); BUN (Urea Nitrogen) 37 mg/dL (9.8-20.1); Calc. Creatinine Clearance 25 mL/min (70-130); Calcium 8.4 mg/dL (7.8-10.44); Carbon Dioxide 23 mmol/L (23-31); Chloride 104 mmol/L (98-107); Estimated GFR 19; Glucose 207 mg/dL (80-115); Potassium 4.2 mmol/L (3.5-5.1); Sodium 138 mmol/L (136-145)
[2022-01-13] MEDS: Furosemide 40 MG TAB PO SCH ×2 (11:18→15:18)
[2022-01-13] MEDS: Escitalopram Oxalate 20 mg Tablet PO SCH (11:18)
[2022-01-13 13:41] LABS: Vancomycin, Random 24.2 ug/mL (See Comment)
[2022-01-13] MEDS ORDERED: Vancomycin 1 GM in Premix Bag 1 BAG IVPB SCH (15:00)
[2022-01-13] MEDS: Meropenem 1 GM in Sodium Chloride 0.9% 100 ML IVPB SCH (15:18)
[2022-01-13] MEDS: Atorvastatin Calcium 40 MG TAB PO SCH (20:39)
[2022-01-13] MEDS: Heparin 5,000 UNITS/ML VIAL SC SCH (20:39)
[2022-01-13] MEDS: HYDROcodone/Acetaminophen 5/325 mg Tablet PO PRN (20:46)
[2022-01-14] MEDS: Meropenem 1 GM in Sodium Chloride 0.9% 100 ML IVPB SCH ×3 (00:10→23:25)
[2022-01-14] MEDS: Furosemide 40 MG TAB PO SCH ×2 (09:39→13:34)
[2022-01-14] MEDS: Heparin 5,000 UNITS/ML VIAL SC SCH ×3 (09:39→22:00)
[2022-01-14] MEDS: Escitalopram Oxalate 20 mg Tablet PO SCH (09:39)
[2022-01-14] MEDS: HYDROcodone/Acetaminophen 5/325 mg Tablet PO PRN ×2 (09:49→22:02)
[2022-01-14 10:31] LABS: Vancomycin, Random 19.1 ug/mL (See Comment)
[2022-01-14] MEDS ORDERED: Vancomycin HCl 500 MG in Sodium Chloride 0.9% 100 ML IVPB SCH (12:00)
[2022-01-14] MEDS ORDERED: Loperamide HCl 2 MG CAP PO PRN (18:38)
[2022-01-14] MEDS ORDERED: Dextrose 50% Abboject 50 ML SYRINGE SLOW IVP PRN (18:42)
[2022-01-14] MEDS ORDERED: HumaLOG 300 UNITS/3 ML VIAL SC PRN ×2 (18:42)
[2022-01-14] MEDS ORDERED: Dextrose 5% in Water 1,000 ML IV PRN (18:42)
[2022-01-14] MEDS: Atorvastatin Calcium 40 MG TAB PO SCH (22:00)
[2022-01-15] MEDS: Heparin 5,000 UNITS/ML VIAL SC SCH ×3 (09:23→21:18)
[2022-01-15] MEDS: Furosemide 40 MG TAB PO SCH ×2 (09:23→15:20)
[2022-01-15] MEDS: Escitalopram Oxalate 20 mg Tablet PO SCH (09:23)
[2022-01-15 11:42] LABS: Vancomycin, Random 20.4 ug/mL (See Comment)
[2022-01-15] MEDS: Meropenem 1 GM in Sodium Chloride 0.9% 100 ML IVPB SCH (13:28)
[2022-01-15] MEDS: HYDROcodone/Acetaminophen 5/325 mg Tablet PO PRN ×2 (15:20→21:18)
[2022-01-15] MEDS: Atorvastatin Calcium 40 MG TAB PO SCH (21:17)
[2022-01-16] MEDS: Meropenem 1 GM in Sodium Chloride 0.9% 100 ML IVPB SCH ×2 (00:30→12:59)
[2022-01-16] MEDS: Escitalopram Oxalate 20 mg Tablet PO SCH (08:30)
[2022-01-16] MEDS: Furosemide 40 MG TAB PO SCH ×2 (08:30→13:00)
[2022-01-16] MEDS: Heparin 5,000 UNITS/ML VIAL SC SCH ×3 (08:30→20:41)
[2022-01-16] MEDS: HYDROcodone/Acetaminophen 5/325 mg Tablet PO PRN ×3 (08:34→20:49)
[2022-01-16 08:58] LABS: #Eosinphils 0.3 thou/uL (0.0-0.7); #Lymphocytes 1.4 thou/uL (1.20-3.40); #Monocytes 1.2 thou/uL (0.11-0.59); #Neutrophils 5.7 thou/uL (1.40-6.50); %Basophils 0.3 % (0.0-1.0); %Eosinophils 3.3 % (0.0-10.0); %Lymphocytes 16.5 % (21.0-51.0); %Monocytes 13.6 % (0.0-10.0); %Neutrophils 66.3 % (42.0-75.0); Mean Corpuscular HGB CONC 31.1 g/dL (32.0-36.0); Mean Corpuscular Hemoglobin 29.5 pg (27.0-31.0); Mean Platelet Volume 6.9 fL (7.4-10.4); Platelet Count 340 thou/uL (130-400); RBC Distribution Width 13.1 % (11.5-14.5); Red Blood Cell (RBC) Count 3.38 mill/uL (4.20-5.40); White Blood Cell (WBC) Count 8.6 thou/uL (4.8-10.8)
[2022-01-16 09:17] LABS: Anion Gap 11 mmol/L (10-20); BUN (Urea Nitrogen) 36 mg/dL (9.8-20.1); Calc. Creatinine Clearance 32 mL/min (70-130); Calcium 8.4 mg/dL (7.8-10.44); Carbon Dioxide 34 mmol/L (23-31); Chloride 99 mmol/L (98-107); Estimated GFR 26; Glucose 80 mg/dL (80-115); Potassium 3.9 mmol/L (3.5-5.1); Sodium 140 mmol/L (136-145)
[2022-01-16 11:34] LABS: Vancomycin, Trough 16.2 ug/mL
[2022-01-16] MEDS ORDERED: Vancomycin HCl 500 MG in Sodium Chloride 0.9% 100 ML IVPB SCH (12:15)
[2022-01-16] MEDS: Mometasone/Formoterol 200/5 60 PUFF INH SCH (19:33)
[2022-01-16] MEDS: Atorvastatin Calcium 40 MG TAB PO SCH (20:41)
[2022-01-17] MEDS: Meropenem 1 GM in Sodium Chloride 0.9% 100 ML IVPB SCH ×2 (00:21→11:46)
[2022-01-17] MEDS: Mometasone/Formoterol 200/5 60 PUFF INH SCH ×2 (08:07→19:40)
[2022-01-17] MEDS: Heparin 5,000 UNITS/ML VIAL SC SCH ×3 (08:50→21:58)
[2022-01-17] MEDS: Escitalopram Oxalate 20 mg Tablet PO SCH (08:51)
[2022-01-17] MEDS: Furosemide 40 MG TAB PO SCH ×2 (08:51→15:34)
[2022-01-17] MEDS: HYDROcodone/Acetaminophen 5/325 mg Tablet PO PRN ×3 (08:53→22:05)
[2022-01-17 11:26] LABS: Vancomycin, Trough 17.5 ug/mL
[2022-01-17] MEDS ORDERED: Vancomycin HCl 500 MG in Sodium Chloride 0.9% 100 ML IVPB SCH ×2 (12:00→15:00)
[2022-01-17] MEDS: Atorvastatin Calcium 40 MG TAB PO SCH (22:00)
[2022-01-18] MEDS: Meropenem 1 GM in Sodium Chloride 0.9% 100 ML IVPB SCH ×3 (00:43→23:23)
[2022-01-18] MEDS: HYDROcodone/Acetaminophen 5/325 mg Tablet PO PRN ×4 (02:49→19:53)
[2022-01-18 05:07] LABS: #Eosinphils 0.3 thou/uL (0.0-0.7); #Lymphocytes 1.7 thou/uL (1.20-3.40); #Monocytes 1.6 thou/uL (0.11-0.59); #Neutrophils 7.8 thou/uL (1.40-6.50); %Basophils 0.3 % (0.0-1.0); %Eosinophils 2.7 % (0.0-10.0); %Lymphocytes 15.1 % (21.0-51.0); %Monocytes 13.5 % (0.0-10.0); %Neutrophils 68.3 % (42.0-75.0); Mean Corpuscular HGB CONC 31.8 g/dL (32.0-36.0); Mean Corpuscular Hemoglobin 29.8 pg (27.0-31.0); Mean Corpuscular Volume 93.9 fL (78.0-98.0); Mean Platelet Volume 7.3 fL (7.4-10.4); Platelet Count 257 thou/uL (130-400); RBC Distribution Width 12.8 % (11.5-14.5); Red Blood Cell (RBC) Count 3.03 mill/uL (4.20-5.40); White Blood Cell (WBC) Count 11.4 thou/uL (4.8-10.8)
[2022-01-18 05:30] LABS: Anion Gap 12 mmol/L (10-20); BUN (Urea Nitrogen) 35 mg/dL (9.8-20.1); Calc. Creatinine Clearance 34 mL/min (70-130); Calcium 8.5 mg/dL (7.8-10.44); Carbon Dioxide 35 mmol/L (23-31); Chloride 93 mmol/L (98-107); Estimated GFR 27; Glucose 122 mg/dL (80-115); Sodium 136 mmol/L (136-145)
[2022-01-18] MEDS: Mometasone/Formoterol 200/5 60 PUFF INH SCH ×2 (07:41→18:54)
[2022-01-18] MEDS: Furosemide 40 MG TAB PO SCH ×2 (08:40→14:45)
[2022-01-18] MEDS: Escitalopram Oxalate 20 mg Tablet PO SCH (08:40)
[2022-01-18] MEDS: Heparin 5,000 UNITS/ML VIAL SC SCH ×3 (08:41→21:05)
[2022-01-18 09:36] LABS: QuantiFERON-TB Gold Plus Negative (Negative)
[2022-01-18 11:30] LABS: Vancomycin, Trough 19.8 ug/mL
[2022-01-18] MEDS ORDERED: Vancomycin HCl 500 MG in Sodium Chloride 0.9% 100 ML IVPB SCH (15:00)
[2022-01-18] MEDS: Atorvastatin Calcium 40 MG TAB PO SCH (21:05)
[2022-01-19] MEDS: HYDROcodone/Acetaminophen 5/325 mg Tablet PO PRN ×4 (04:20→20:39)
[2022-01-19 05:15] LABS: #Basophils 0.1 thou/uL (0.0-0.2); #Eosinphils 0.2 thou/uL (0.0-0.7); #Lymphocytes 2.1 thou/uL (1.20-3.40); #Monocytes 1.6 thou/uL (0.11-0.59); #Neutrophils 6.9 thou/uL (1.40-6.50); %Basophils 0.5 % (0.0-1.0); %Eosinophils 2.1 % (0.0-10.0); %Lymphocytes 19.5 % (21.0-51.0); %Monocytes 14.9 % (0.0-10.0); %Neutrophils 63.1 % (42.0-75.0); Hemoglobin 9.3 g/dL (12.0-16.0); Mean Corpuscular HGB CONC 30.5 g/dL (32.0-36.0); Mean Corpuscular Hemoglobin 28.9 pg (27.0-31.0); Mean Corpuscular Volume 94.7 fL (78.0-98.0); Mean Platelet Volume 7.5 fL (7.4-10.4); Platelet Count 233 thou/uL (130-400); RBC Distribution Width 12.9 % (11.5-14.5); Red Blood Cell (RBC) Count 3.22 mill/uL (4.20-5.40); White Blood Cell (WBC) Count 10.9 thou/uL (4.8-10.8)
[2022-01-19 05:37] LABS: Anion Gap 13 mmol/L (10-20); BUN (Urea Nitrogen) 34 mg/dL (9.8-20.1); Calc. Creatinine Clearance 30 mL/min (70-130); Calcium 8.9 mg/dL (7.8-10.44); Carbon Dioxide 34 mmol/L (23-31); Chloride 92 mmol/L (98-107); Estimated GFR 26; Glucose 96 mg/dL (80-115); Potassium 3.7 mmol/L (3.5-5.1); Sodium 135 mmol/L (136-145)
[2022-01-19] MEDS: Mometasone/Formoterol 200/5 60 PUFF INH SCH ×2 (06:54→19:42)
[2022-01-19] MEDS: Escitalopram Oxalate 20 mg Tablet PO SCH (08:14)
[2022-01-19] MEDS: Heparin 5,000 UNITS/ML VIAL SC SCH ×3 (08:14→20:28)
[2022-01-19] MEDS: Furosemide 40 MG TAB PO SCH ×2 (08:14→13:52)
[2022-01-19] MEDS: Meropenem 1 GM in Sodium Chloride 0.9% 100 ML IVPB SCH (13:52)
[2022-01-19 14:27] LABS: Vancomycin, Random 17.9 ug/mL (See Comment)
[2022-01-19] MEDS ORDERED: Vancomycin HCl 500 MG in Sodium Chloride 0.9% 100 ML IVPB SCH (15:00)
[2022-01-19] MEDS: Atorvastatin Calcium 40 MG TAB PO SCH (20:28)
[2022-01-19] MEDS: Meropenem 500 MG in Sodium Chloride 0.9% 100 ML IVPB SCH (23:28)
[2022-01-20] MEDS: HYDROcodone/Acetaminophen 5/325 mg Tablet PO PRN ×5 (01:21→21:00)
[2022-01-20 07:01] LABS: ALT (SGPT) 25 U/L (8-55); AST (SGOT) 54 U/L (5-34); Albumin 2.5 g/dL (3.4-4.8); Alkaline Phosphatase 437 U/L (40-110); Anion Gap 12 mmol/L (10-20); BUN (Urea Nitrogen) 38 mg/dL (9.8-20.1); Bilirubin, Total 0.3 mg/dL (0.2-1.2); Calc. Creatinine Clearance 28 mL/min (70-130); Calcium 8.8 mg/dL (7.8-10.44); Carbon Dioxide 37 mmol/L (23-31); Chloride 92 mmol/L (98-107); Estimated GFR 24; Globulin 4.5 g/dL (2.4-3.5); Glucose 93 mg/dL (80-115); Sodium 137 mmol/L (136-145)
[2022-01-20 08:16] LABS: Band 4 % (5-11); Hemoglobin 9.4 g/dL (12.0-16.0); Lymphocytes 20 % (21-51); MDiff Complete? YES; Mean Corpuscular HGB CONC 32.8 g/dL (32.0-36.0); Mean Corpuscular Hemoglobin 30.6 pg (27.0-31.0); Mean Corpuscular Volume 93.4 fL (78.0-98.0); Mean Platelet Volume 7.9 fL (7.4-10.4); Monocytes 11 % (0-10); Myelocyte 1 % (0-0); Neutrophil 63 % (42-75); Platelet Count 211 thou/uL (130-400); Platelet Morphology Comment Appears Adequate; Polychromasia SLIGHT = 2-3 cells (100X) (0-2/hpf); RBC Distribution Width 12.6 % (11.5-14.5); Reactive Lymphocytes 1 % (0-10); Red Blood Cell (RBC) Count 3.07 mill/uL (4.20-5.40); White Blood Cell (WBC) Count 10.1 thou/uL (4.8-10.8)
[2022-01-20] MEDS: Furosemide 40 MG TAB PO SCH ×2 (08:47→15:32)
[2022-01-20] MEDS: Escitalopram Oxalate 20 mg Tablet PO SCH (08:47)
[2022-01-20] MEDS: Heparin 5,000 UNITS/ML VIAL SC SCH ×3 (08:47→21:01)
[2022-01-20] MEDS: Meropenem 500 MG in Sodium Chloride 0.9% 100 ML IVPB SCH ×2 (12:04→23:44)
[2022-01-20] MEDS: Mometasone/Formoterol 200/5 60 PUFF INH SCH ×2 (13:09→18:49)
[2022-01-20 14:23] LABS: Vancomycin, Random 19.4 ug/mL (See Comment)
[2022-01-20] MEDS ORDERED: Vancomycin HCl 500 MG in Sodium Chloride 0.9% 100 ML IVPB SCH (15:00)
[2022-01-20 17:03] LABS: Anion Gap 12 mmol/L (10-20); BUN (Urea Nitrogen) 37 mg/dL (9.8-20.1); Calc. Creatinine Clearance 29 mL/min (70-130); Calcium 9.1 mg/dL (7.8-10.44); Carbon Dioxide 37 mmol/L (23-31); Chloride 90 mmol/L (98-107); Estimated GFR 25; Glucose 85 mg/dL (80-115); Potassium 3.7 mmol/L (3.5-5.1); Sodium 135 mmol/L (136-145)
[2022-01-20] MEDS: Atorvastatin Calcium 40 MG TAB PO SCH (21:00)
[2022-01-20] MEDS: Gabapentin 100 MG CAP PO SCH (21:00)
[2022-01-20] MEDS: Colchicine 0.3 MG TAB PO SCH (21:02)
[2022-01-21 07:15] LABS: Hemoglobin 9.7 g/dL (12.0-16.0); Mean Corpuscular HGB CONC 32.6 g/dL (32.0-36.0); Mean Corpuscular Hemoglobin 30.4 pg (27.0-31.0); Mean Corpuscular Volume 93.2 fL (78.0-98.0); Mean Platelet Volume 7.9 fL (7.4-10.4); Platelet Count 222 thou/uL (130-400); RBC Distribution Width 12.8 % (11.5-14.5); White Blood Cell (WBC) Count 9.4 thou/uL (4.8-10.8)
[2022-01-21] MEDS: Mometasone/Formoterol 200/5 60 PUFF INH SCH (07:37)
[2022-01-21] MEDS: HYDROcodone/Acetaminophen 5/325 mg Tablet PO PRN ×2 (08:52→16:26)
[2022-01-21] MEDS: Gabapentin 100 MG CAP PO SCH (08:54)
[2022-01-21] MEDS: Colchicine 0.3 MG TAB PO SCH (08:54)
[2022-01-21] MEDS: Escitalopram Oxalate 20 mg Tablet PO SCH (08:54)
[2022-01-21] MEDS: Heparin 5,000 UNITS/ML VIAL SC SCH ×2 (08:55→16:08)
[2022-01-21] MEDS ORDERED: Furosemide 40 MG TAB PO SCH (09:00)
[2022-01-21] MEDS: Meropenem 500 MG in Sodium Chloride 0.9% 100 ML IVPB SCH (10:48)
[2022-01-21 11:45] LABS: Band 8 % (5-11); Lymphocytes 24 % (21-51); MDiff Complete? YES; Metamyelocyte 1 % (0-0); Monocytes 13 % (0-10); Myelocyte 1 % (0-0); Neutrophil 53 % (42-75); Platelet Morphology Comment Appears Adequate; Polychromasia SLIGHT = 2-3 cells (100X) (0-2/hpf)
[2022-01-21 14:33] LABS: Vancomycin, Random 22.1 ug/mL (See Comment)
[2022-01-21 16:35] VITALS: BP 119/59; TEMP 99.1
== END 2022-01-21 17:48 | DRG 177 ==
LOC: CCU 17:41 → 2SW 22:39 → T4-B 01-19 15:00
PROVIDERS: ADMIT Family Medicine; ATTEND Internal Medicine
PROC: 8E0ZXY6 Isolation (ICD-10-PCS; 2022-01-12)
PROC: 02HV33Z Insertion of Infusion Device into Superior Vena Cava, Percutaneous Approach (ICD-10-PCS; principal; 2022-01-15)
PROC: B548ZZA Ultrasonography of Superior Vena Cava, Guidance (ICD-10-PCS; 2022-01-15)
DX: J85.1 Abscess of lung with pneumonia (principal); J96.01 Acute respiratory failure with hypoxia; J44.0 Chronic obstructive pulmonary disease with (acute) lower respiratory infection; N18.4 Chronic kidney disease, stage 4 (severe); J90 Pleural effusion, not elsewhere classified; N17.9 Acute kidney failure, unspecified; I73.9 Peripheral vascular disease, unspecified; E78.5 Hyperlipidemia, unspecified; I08.3 Combined rheumatic disorders of mitral, aortic and tricuspid valves; M10.9 Gout, unspecified; I12.9 Hypertensive chronic kidney disease with stage 1 through stage 4 chronic kidney disease, or unspecified chronic kidney disease; Z86.73 Personal history of transient ischemic attack (TIA), and cerebral infarction without residual deficits; Z63.1 Problems in relationship with in-laws; Z90.49 Acquired absence of other specified parts of digestive tract; Z90.710 Acquired absence of both cervix and uterus; Z98.890 Other specified postprocedural states; Z86.16 Personal history of COVID-19
CPT/HCPCS: 36415; 36416; 36569; 71045; 80048; 80053; 80202; 83880; 84145; 85025; 85610; 86140; 86480; 87449; 94640; C1751; J1644; J1815; J2185; J3370; J3490; J7620

== ENCOUNTER 2022-08-03 22:57 | Inpatient (IN) | payer OTHER, MEDICAID ==
[2022-08-03] MEDS ORDERED: Boostrix 0.5 ML (Tdap) VIAL (>/=7 yrs of age) ONE (23:59)
[2022-08-04 00:33] LABS: #Eosinphils 0.3 thou/uL (0.0-0.7); #Lymphocytes 1.6 thou/uL (1.20-3.40); #Monocytes 0.7 thou/uL (0.11-0.59); %Basophils 0.4 % (0.0-1.0); %Monocytes 11.9 % (0.0-10.0); %Neutrophils 53.7 % (42.0-75.0); Hemoglobin 9.5 g/dL (12.0-16.0); Mean Corpuscular HGB CONC 31.2 g/dL (32.0-36.0); Mean Corpuscular Volume 96.4 fl (78.0-98.0); Mean Platelet Volume 8.1 fL (7.4-10.4); Platelet Count 185 10x3/uL (130-400); RBC Distribution Width 14.9 % (11.5-14.5); Red Blood Cell (RBC) Count 3.17 mill/uL (4.20-5.40); White Blood Cell (WBC) Count 5.6 10x3/uL (4.8-10.8)
[2022-08-04 00:52] LABS: ALT (SGPT) 50 U/L (8-55); AST (SGOT) 38 U/L (5-34); Albumin 2.7 g/dL (3.4-4.8); Alkaline Phosphatase 732 U/L (40-110); Anion Gap 17 mmol/L (10-20); BUN (Urea Nitrogen) 54 mg/dL (9.8-20.1); Bilirubin, Total 0.2 mg/dL (0.2-1.2); Calc. Creatinine Clearance 0 mL/min (70-130); Calcium 7.9 mg/dL (7.8-10.44); Carbon Dioxide 11 mmol/L (23-31); Chloride 112 mmol/L (98-107); Estimated GFR 12; Globulin 2.7 g/dL (2.4-3.5); Glucose 94 mg/dL (80-115); Magnesium 2.1 mg/dL (1.6-2.6); Potassium 4.6 mmol/L (3.5-5.1); Protein, Total 5.4 g/dL (5.8-8.1); Sodium 135 mmol/L (136-145)
[2022-08-04 01:02] LABS: Acetaminophen Less than 10.0 mcg/mL (10.0-30.0); Alcohol 26 mg/dL (Less than 10); Salicylate Less than 8.0 mg/dL (15.0-30.0)
[2022-08-04 01:06] LABS: Troponin I Less than 0.010 ng/mL (< 0.028)
[2022-08-04 02:27] LABS: Analyzer IN Cardio ER; Calcium, Ionized (venous) 1.11 mmol/L (1.16-1.32); Chloride (VBG) 112 mmol/L (98-106); Hemoglobin (Hb) 11.1 g/dL (11.7-16.1); Potassium (VBG) 4.94 mmol/L (3.70-5.30); Sodium 140.5 mmol/L (133-146)
[2022-08-04 02:30] LABS: Actual Bicarbonate (HCO3v) 14 mEq/L (22-28); pH (venous) 7.16 (7.32-7.43)
[2022-08-04] MEDS ORDERED: Sodium Chloride 0.9% 1,000 ML IV SCH (02:45)
[2022-08-04] MEDS: Sodium Chloride 0.9% 1,000 ML IV SCH ×2 (05:26→12:36)
[2022-08-04 05:58] LABS: #Eosinphils 0.4 thou/uL (0.0-0.7); #Lymphocytes 1.9 thou/uL (1.20-3.40); #Monocytes 0.7 thou/uL (0.11-0.59); #Neutrophils 3.4 thou/uL (1.40-6.50); %Basophils 0.6 % (0.0-1.0); %Eosinophils 5.6 % (0.0-10.0); %Lymphocytes 29.2 % (21.0-51.0); %Monocytes 11.5 % (0.0-10.0); %Neutrophils 53.1 % (42.0-75.0); Hemoglobin 9.3 g/dL (12.0-16.0); Mean Corpuscular HGB CONC 32.3 g/dL (32.0-36.0); Mean Corpuscular Hemoglobin 30.8 pg (27.0-31.0); Mean Corpuscular Volume 95.5 fl (78.0-98.0); Platelet Count 176 10x3/uL (130-400); RBC Distribution Width 14.9 % (11.5-14.5); Red Blood Cell (RBC) Count 3.02 mill/uL (4.20-5.40); White Blood Cell (WBC) Count 6.4 10x3/uL (4.8-10.8)
[2022-08-04 06:27] LABS: ALT (SGPT) 49 U/L (8-55); AST (SGOT) 50 U/L (5-34); Albumin 2.7 g/dL (3.4-4.8); Alkaline Phosphatase 753 U/L (40-110); Anion Gap 14 mmol/L (10-20); BUN (Urea Nitrogen) 50 mg/dL (9.8-20.1); Bilirubin, Total Less than 0.2 mg/dL (0.2-1.2); Calc. Creatinine Clearance 0 mL/min (70-130); Calcium 7.6 mg/dL (7.8-10.44); Carbon Dioxide 12 mmol/L (23-31); Chloride 114 mmol/L (98-107); Estimated GFR 14; Globulin 2.9 g/dL (2.4-3.5); Glucose 112 mg/dL (80-115); Phosphorus 3.8 mg/dL (2.3-4.7); Potassium 4.6 mmol/L (3.5-5.1); Protein, Total 5.6 g/dL (5.8-8.1); Sodium 135 mmol/L (136-145)
[2022-08-04] MEDS ORDERED: Ondansetron ODT 4 MG TAB PO PRN (07:48)
[2022-08-04] MEDS ORDERED: Lorazepam 1 MG TAB PO PRN (07:48)
[2022-08-04] MEDS ORDERED: Lorazepam 2 MG/ML VIAL IM PRN (07:48)
[2022-08-04] MEDS ORDERED: LORazepam 2 MG/ML SYR.(CARPUJECT) ONE ×3 (07:51→11:08)
[2022-08-04] MEDS ORDERED: Electrolyte Replacement Protocol 1 EACH FS SCH (08:00)
[2022-08-04] MEDS ORDERED: LORazepam 2 MG/ML SYR.(CARPUJECT) IVP SCH (08:15)
[2022-08-04 08:34] LABS: Analyzer IN Cardio ER; Base Excess -13.5 mEq/L (-2.0 to +3.0); Calcium, Ionized (venous) 1.07 mmol/L (1.16-1.32); Chloride (VBG) 115 mmol/L (98-106); Hemoglobin (Hb) 10.1 g/dL (11.7-16.1); Potassium (VBG) 4.72 mmol/L (3.70-5.30); Sodium 139.7 mmol/L (133-146); pH (venous) 7.25 (7.32-7.43)
[2022-08-04 08:38] LABS: Actual Bicarbonate (HCO3v) 12 mEq/L (22-28)
[2022-08-04] MEDS ORDERED: Folic Acid 1 MG TAB PO SCH (09:00)
[2022-08-04] MEDS ORDERED: Folic Acid 1 MG TAB ONE (11:09)
[2022-08-04] MEDS: Lorazepam 1 MG TAB PO SCH ×3 (11:12→21:28)
[2022-08-04] MEDS: Thiamine HCl 200 MG/2 ML VIAL SLOW IVP SCH (11:13)
[2022-08-04] MEDS: Multivit, Therapeutic 1 TAB PO SCH ×2 (11:13→11:24)
[2022-08-04] MEDS: Folic Acid 1 MG TAB PO SCH ×2 (11:13→11:24)
[2022-08-04] MEDS ORDERED: Lactated Ringer's 1,000 ML IV SCH (12:45)
[2022-08-04] MEDS: Escitalopram Oxalate 20 mg Tablet PO SCH (13:37)
[2022-08-04] MEDS: Heparin 5,000 UNITS/ML VIAL SC SCH ×3 (13:37→21:14)
[2022-08-04] MEDS: Sodium Bicarbonate Tab 325 MG TAB PO SCH ×3 (13:38→21:13)
[2022-08-04 14:51] VITALS: BMI 23.0
[2022-08-04 16:49] LABS: Amphetamine Not Detected (NotDetected); Barbiturates Screen Not Detected (NotDetected); Benzodiazepine Screen Not Detected (NotDetected); Cocaine Metabolite Screen Not Detected (NotDetected); Methadone Not Detected (NotDetected); Methamphetamine Not Detected (NotDetected); Opiate Screen Detected (NotDetected); Oxycodone Screen Not Detected (NotDetected); Phencyclidine (PCP) Not Detected (NotDetected); THC/Cannabinoid Screen Not Detected (NotDetected); Tricyclic Screen Not Detected (NotDetected)
[2022-08-04 18:00] LABS: Base Excess -14.3 mEq/L (-2.0 to +3.0); Calcium, Ionized (venous) 1.11 mmol/L (1.16-1.32); Chloride (VBG) 115 mmol/L (98-106); Hemoglobin (Hb) 10.9 g/dL (11.7-16.1); Potassium (VBG) 4.81 mmol/L (3.70-5.30); Sodium 142.3 mmol/L (133-146)
[2022-08-04 18:04] LABS: pH (venous) 7.17 (7.32-7.43)
[2022-08-04 18:05] LABS: Actual Bicarbonate (HCO3v) 13 mEq/L (22-28)
[2022-08-04] MEDS ORDERED: Dextrose 5% in Water 1,000 ML IV SCH (18:15)
[2022-08-04 18:31] LABS: Anion Gap 15 mmol/L (10-20); BUN (Urea Nitrogen) 48 mg/dL (9.8-20.1); Calc. Creatinine Clearance 16 mL/min (70-130); Carbon Dioxide 11 mmol/L (23-31); Chloride 116 mmol/L (98-107); Estimated GFR 16; Glucose 62 mg/dL (80-115); Potassium 4.9 mmol/L (3.5-5.1); Sodium 137 mmol/L (136-145)
[2022-08-04] MEDS: Atorvastatin Calcium 40 MG TAB PO SCH (21:13)
[2022-08-04] MEDS: Sodium Bicarbonate 150 MEQ in Dextrose 5% in Water 1,000 ML IV SCH (21:13)
[2022-08-04 22:49] LABS: Base Excess -14.6 mEq/L (-2.0 to +3.0); Calcium, Ionized (venous) 1.09 mmol/L (1.16-1.32); Chloride (VBG) 115 mmol/L (98-106); Hemoglobin (Hb) 10.6 g/dL (11.7-16.1); Potassium (VBG) 5.02 mmol/L (3.70-5.30); Sodium 142.5 mmol/L (133-146)
[2022-08-04 22:50] LABS: pH (venous) 7.18 (7.32-7.43)
[2022-08-04 22:51] LABS: Actual Bicarbonate (HCO3v) 13 mEq/L (22-28)
[2022-08-05 04:51] LABS: #Basophils 0.1 thou/uL (0.0-0.2); #Eosinphils 0.5 thou/uL (0.0-0.7); #Lymphocytes 2.3 thou/uL (1.20-3.40); #Monocytes 0.5 thou/uL (0.11-0.59); #Neutrophils 2.4 thou/uL (1.40-6.50); %Basophils 1.4 % (0.0-1.0); %Eosinophils 8.6 % (0.0-10.0); %Lymphocytes 39.8 % (21.0-51.0); %Monocytes 9.1 % (0.0-10.0); %Neutrophils 41.1 % (42.0-75.0); Hemoglobin 10.5 g/dL (12.0-16.0); Mean Corpuscular HGB CONC 33.3 g/dL (32.0-36.0); Mean Corpuscular Hemoglobin 31.3 pg (27.0-31.0); Mean Corpuscular Volume 93.9 fl (78.0-98.0); Mean Platelet Volume 8.1 fL (7.4-10.4); Platelet Count 203 10x3/uL (130-400); RBC Distribution Width 14.9 % (11.5-14.5); Red Blood Cell (RBC) Count 3.37 mill/uL (4.20-5.40); White Blood Cell (WBC) Count 5.7 10x3/uL (4.8-10.8)
[2022-08-05] MEDS: Lorazepam 1 MG TAB PO SCH ×4 (05:06→22:28)
[2022-08-05 05:18] LABS: Actual Bicarbonate (HCO3v) 15 mEq/L (22-28); Base Excess -9.9 mEq/L (-2.0 to +3.0); Hemoglobin (Hb) 11.4 g/dL (11.7-16.1); Potassium (VBG) 4.55 mmol/L (3.70-5.30); Sodium 141.8 mmol/L (133-146); pH (venous) 7.32 (7.32-7.43)
[2022-08-05 05:19] LABS: Calcium, Ionized (venous) 1.13 mmol/L (1.16-1.32); Chloride (VBG) 114 mmol/L (98-106)
[2022-08-05 05:23] LABS: Glucose 73 mg/dL (80-115)
[2022-08-05 05:24] LABS: Anion Gap 15 mmol/L (10-20); Calcium 8.4 mg/dL (7.8-10.44); Carbon Dioxide 10 mmol/L (23-31); Chloride 116 mmol/L (98-107); Potassium 5.1 mmol/L (3.5-5.1); Sodium 136 mmol/L (136-145)
[2022-08-05 05:26] LABS: Calc. Creatinine Clearance 18 mL/min (70-130); Estimated GFR 18
[2022-08-05 05:27] LABS: BUN (Urea Nitrogen) 44 mg/dL (9.8-20.1)
[2022-08-05 05:28] LABS: Magnesium 1.9 mg/dL (1.6-2.6)
[2022-08-05] MEDS ORDERED: Lorazepam 1 MG TAB PO PRN (07:49)
[2022-08-05] MEDS ORDERED: Lice Shampoo 120 ML BOT TOP SCH (09:00)
[2022-08-05] MEDS: Escitalopram Oxalate 20 mg Tablet PO SCH (09:21)
[2022-08-05] MEDS: Heparin 5,000 UNITS/ML VIAL SC SCH ×3 (09:21→22:45)
[2022-08-05] MEDS: Thiamine HCl 200 MG/2 ML VIAL SLOW IVP SCH (09:21)
[2022-08-05] MEDS: Multivit, Therapeutic 1 TAB PO SCH (09:21)
[2022-08-05] MEDS: Folic Acid 1 MG TAB PO SCH (09:21)
[2022-08-05] MEDS: Sodium Bicarbonate Tab 325 MG TAB PO SCH ×3 (09:21→22:46)
[2022-08-05] MEDS: Sodium Bicarbonate 150 MEQ in Dextrose 5% in Water 1,000 ML IV SCH (09:22)
[2022-08-05] MEDS: Pantoprazole 40 MG VIAL IVP SCH (09:22)
[2022-08-05 11:04] LABS: ALT (SGPT) 49 U/L (8-55); AST (SGOT) 61 U/L (5-34); Albumin 2.6 g/dL (3.4-4.8); Alkaline Phosphatase 768 U/L (40-110); Bilirubin, Direct 0.1 mg/dL (0.1-0.3); Bilirubin, Total 0.2 mg/dL (0.2-1.2); Protein, Total 6.3 g/dL (5.8-8.1)
[2022-08-05] MEDS: Atorvastatin Calcium 40 MG TAB PO SCH (22:45)
[2022-08-06] MEDS: Melatonin 3 MG TAB PO PRN ×2 (00:34→20:29)
[2022-08-06] MEDS: Sodium Bicarbonate 150 MEQ in Dextrose 5% in Water 1,000 ML IV SCH ×2 (00:35→15:21)
[2022-08-06] MEDS: Lorazepam 1 MG TAB PO SCH (04:08)
[2022-08-06 04:24] LABS: #Eosinphils 0.4 thou/uL (0.0-0.7); #Lymphocytes 2.6 thou/uL (1.20-3.40); #Monocytes 0.7 thou/uL (0.11-0.59); #Neutrophils 2.9 thou/uL (1.40-6.50); %Basophils 0.4 % (0.0-1.0); %Eosinophils 5.4 % (0.0-10.0); %Lymphocytes 39.2 % (21.0-51.0); %Monocytes 11.1 % (0.0-10.0); Hemoglobin 7.8 g/dL (12.0-16.0); Mean Corpuscular HGB CONC 33.4 g/dL (32.0-36.0); Mean Corpuscular Hemoglobin 31.1 pg (27.0-31.0); Mean Platelet Volume 7.7 fL (7.4-10.4); Platelet Count 153 10x3/uL (130-400); RBC Distribution Width 14.7 % (11.5-14.5); White Blood Cell (WBC) Count 6.7 10x3/uL (4.8-10.8)
[2022-08-06 04:53] LABS: ALT (SGPT) 29 U/L (8-55); AST (SGOT) 22 U/L (5-34); Albumin 2.5 g/dL (3.4-4.8); Alkaline Phosphatase 526 U/L (40-110); Anion Gap 12 mmol/L (10-20); BUN (Urea Nitrogen) 50 mg/dL (9.8-20.1); Bilirubin, Total 0.2 mg/dL (0.2-1.2); Calc. Creatinine Clearance 20 mL/min (70-130); Calcium 7.7 mg/dL (7.8-10.44); Carbon Dioxide 19 mmol/L (23-31); Chloride 109 mmol/L (98-107); Estimated GFR 20; Globulin 2.6 g/dL (2.4-3.5); Glucose 128 mg/dL (80-115); Potassium 3.8 mmol/L (3.5-5.1); Protein, Total 5.1 g/dL (5.8-8.1); Sodium 136 mmol/L (136-145)
[2022-08-06] MEDS ORDERED: Lorazepam 1 MG TAB PO PRN (07:49)
[2022-08-06] MEDS: Lorazepam 0.5 MG TAB PO SCH ×3 (09:46→20:30)
[2022-08-06] MEDS: Sodium Bicarbonate Tab 325 MG TAB PO SCH ×3 (09:46→20:28)
[2022-08-06] MEDS: Folic Acid 1 MG TAB PO SCH (09:46)
[2022-08-06] MEDS: Multivit, Therapeutic 1 TAB PO SCH (09:46)
[2022-08-06] MEDS: Heparin 5,000 UNITS/ML VIAL SC SCH ×3 (09:46→20:29)
[2022-08-06] MEDS: Escitalopram Oxalate 20 mg Tablet PO SCH (09:47)
[2022-08-06] MEDS: Pantoprazole 40 MG VIAL IVP SCH (09:47)
[2022-08-06] MEDS: cefTRIAXone\\ROCEPHIN 1 GM in Sodium Chloride 0.9% 100 ML IVPB SCH (09:47)
[2022-08-06] MEDS: Thiamine HCl 200 MG/2 ML VIAL SLOW IVP SCH (09:50)
[2022-08-06 12:02] LABS: Bacteria/HPF 1+ HPF (None Seen); Bilirubin Negative (Negative); Blood, Urine 3+ (Negative); CAUTI Indications for Culture Dysuria,urgency,freq; Clarity Cloudy (Clear); Glucose, Urine (Dipstick) Normal (Negative); Ketone, Urine Negative (Negative); Leukocyte 500 Leu/uL (Negative); Nitrite Negative (Negative); Protein, Urine (Dipstick) 100 mg/dL (Neg-Trace); RBC/HPF Greater than 50 HPF (0-3); Specific Gravity, Urine 1.009 (1.002-1.036); Squamous Epithelial 0-3 HPF (0-3); Urobilinogen Normal mg/dL (Less than 2); WBC/HPF Greater than 50 HPF (0-3); pH, Urine 6.5 (5.0-9.0)
[2022-08-06 12:03] LABS: Urine Culture Reflex Yes Yes
[2022-08-06] MEDS ORDERED: Ipratropium/Albuterol 3 ML NEB NEB PRN (13:59)
[2022-08-06] MEDS ORDERED: Amlodipine 10 MG TAB PO SCH (14:00)
[2022-08-06] MEDS: Atorvastatin Calcium 40 MG TAB PO SCH (20:29)
[2022-08-06] MEDS: Nicotine 14 MG PATCH TD PRN (21:49)
[2022-08-07] MEDS: Lorazepam 0.5 MG TAB PO SCH (03:53)
[2022-08-07 05:38] LABS: #Eosinphils 0.5 thou/uL (0.0-0.7); #Lymphocytes 2.5 thou/uL (1.20-3.40); #Monocytes 0.9 thou/uL (0.11-0.59); #Neutrophils 3.9 thou/uL (1.40-6.50); %Basophils 0.3 % (0.0-1.0); %Eosinophils 6.2 % (0.0-10.0); %Lymphocytes 31.8 % (21.0-51.0); %Monocytes 11.1 % (0.0-10.0); %Neutrophils 50.6 % (42.0-75.0); Hemoglobin 7.3 g/dL (12.0-16.0); Mean Corpuscular HGB CONC 33.7 g/dL (32.0-36.0); Mean Corpuscular Hemoglobin 31.5 pg (27.0-31.0); Mean Corpuscular Volume 93.5 fl (78.0-98.0); Mean Platelet Volume 7.6 fL (7.4-10.4); Platelet Count 164 10x3/uL (130-400); RBC Distribution Width 14.8 % (11.5-14.5); Red Blood Cell (RBC) Count 2.32 mill/uL (4.20-5.40); White Blood Cell (WBC) Count 7.8 10x3/uL (4.8-10.8)
[2022-08-07 06:05] LABS: ALT (SGPT) 19 U/L (8-55); AST (SGOT) 15 U/L (5-34); Albumin 2.3 g/dL (3.4-4.8); Alkaline Phosphatase 424 U/L (40-110); Anion Gap 10 mmol/L (10-20); BUN (Urea Nitrogen) 39 mg/dL (9.8-20.1); Bilirubin, Total Less than 0.2 mg/dL (0.2-1.2); Calc. Creatinine Clearance 25 mL/min (70-130); Calcium 7.7 mg/dL (7.8-10.44); Carbon Dioxide 28 mmol/L (23-31); Chloride 103 mmol/L (98-107); Estimated GFR 27; Globulin 2.5 g/dL (2.4-3.5); Glucose 122 mg/dL (80-115); Potassium 3.5 mmol/L (3.5-5.1); Protein, Total 4.8 g/dL (5.8-8.1); Sodium 137 mmol/L (136-145)
[2022-08-07] MEDS: Sodium Bicarbonate Tab 325 MG TAB PO SCH ×3 (08:50→20:40)
[2022-08-07] MEDS: Escitalopram Oxalate 20 mg Tablet PO SCH (08:51)
[2022-08-07] MEDS: Pantoprazole 40 MG VIAL IVP SCH ×2 (08:51→20:40)
[2022-08-07] MEDS: Multivit, Therapeutic 1 TAB PO SCH (08:51)
[2022-08-07] MEDS: Folic Acid 1 MG TAB PO SCH (08:51)
[2022-08-07] MEDS: Amlodipine 10 MG TAB PO SCH (08:51)
[2022-08-07] MEDS: Thiamine 100 MG TAB PO SCH (09:02)
[2022-08-07] MEDS: cefTRIAXone\\ROCEPHIN 1 GM in Sodium Chloride 0.9% 100 ML IVPB SCH (09:02)
[2022-08-07] MEDS: Heparin 5,000 UNITS/ML VIAL SC SCH ×3 (09:02→20:40)
[2022-08-07 09:56] LABS: Iron 59 ug/dL (50-170); Iron Binding Capacity, Total 148 mcg/dL (265-497)
[2022-08-07] MEDS: Sodium Bicarbonate 150 MEQ in Dextrose 5% in Water 1,000 ML IV SCH (11:14)
[2022-08-07] MEDS ORDERED: Acetaminophen 325 MG TAB PO PRN (17:16)
[2022-08-07] MEDS: Atorvastatin Calcium 40 MG TAB PO SCH (20:39)
[2022-08-07] MEDS: Nicotine 14 MG PATCH TD PRN (20:41)
[2022-08-07] MEDS: Melatonin 3 MG TAB PO PRN (21:30)
[2022-08-08 04:54] LABS: #Basophils 0.1 thou/uL (0.0-0.2); #Eosinphils 0.6 thou/uL (0.0-0.7); #Lymphocytes 2.6 thou/uL (1.20-3.40); #Monocytes 1.1 thou/uL (0.11-0.59); #Neutrophils 5.1 thou/uL (1.40-6.50); %Basophils 0.8 % (0.0-1.0); %Eosinophils 6.6 % (0.0-10.0); %Lymphocytes 27.4 % (21.0-51.0); %Monocytes 11.6 % (0.0-10.0); %Neutrophils 53.7 % (42.0-75.0); Hemoglobin 7.3 g/dL (12.0-16.0); Mean Corpuscular HGB CONC 34.1 g/dL (32.0-36.0); Mean Corpuscular Hemoglobin 31.6 pg (27.0-31.0); Mean Corpuscular Volume 92.9 fl (78.0-98.0); Mean Platelet Volume 7.3 fL (7.4-10.4); Platelet Count 148 10x3/uL (130-400); RBC Distribution Width 14.9 % (11.5-14.5); White Blood Cell (WBC) Count 9.5 10x3/uL (4.8-10.8)
[2022-08-08 05:23] LABS: ALT (SGPT) 18 U/L (8-55); AST (SGOT) 15 U/L (5-34); Albumin 2.5 g/dL (3.4-4.8); Alkaline Phosphatase 398 U/L (40-110); Anion Gap 11 mmol/L (10-20); BUN (Urea Nitrogen) 32 mg/dL (9.8-20.1); Bilirubin, Total 0.2 mg/dL (0.2-1.2); Calc. Creatinine Clearance 28 mL/min (70-130); Calcium 8.1 mg/dL (7.8-10.44); Carbon Dioxide 27 mmol/L (23-31); Chloride 102 mmol/L (98-107); Estimated GFR 31; Globulin 2.7 g/dL (2.4-3.5); Glucose 120 mg/dL (80-115); Magnesium 1.5 mg/dL (1.6-2.6); Phosphorus 1.9 mg/dL (2.3-4.7); Potassium 3.6 mmol/L (3.5-5.1); Protein, Total 5.2 g/dL (5.8-8.1); Sodium 136 mmol/L (136-145)
[2022-08-08] MEDS ORDERED: Electrolyte Replacement Protocol 1 EACH FS SCH (09:00)
[2022-08-08] MEDS ORDERED: Magnesium 2 GM/50 ML(in water) 2 GM in Premix Bag 1 BAG IVPB SCH (09:45)
[2022-08-08] MEDS: cefTRIAXone\\ROCEPHIN 1 GM in Sodium Chloride 0.9% 100 ML IVPB SCH (10:30)
[2022-08-08] MEDS: Amlodipine 10 MG TAB PO SCH (10:31)
[2022-08-08] MEDS: Folic Acid 1 MG TAB PO SCH (10:31)
[2022-08-08] MEDS: Sodium Bicarbonate Tab 325 MG TAB PO SCH ×3 (10:31→21:50)
[2022-08-08] MEDS: Thiamine 100 MG TAB PO SCH (10:31)
[2022-08-08] MEDS: Multivit, Therapeutic 1 TAB PO SCH (10:32)
[2022-08-08] MEDS: Pantoprazole 40 MG VIAL IVP SCH ×2 (10:32→21:22)
[2022-08-08] MEDS: PHOS-NAK 1 PKT PACK PO SCH ×2 (10:32→15:00)
[2022-08-08] MEDS: Escitalopram Oxalate 20 mg Tablet PO SCH (10:32)
[2022-08-08] MEDS: Heparin 5,000 UNITS/ML VIAL SC SCH ×3 (10:33→21:21)
[2022-08-08] MEDS: Lorazepam 0.5 MG TAB PO PRN ×2 (15:07→21:21)
[2022-08-08 15:17] LABS: Reticulocyte Count 7.3 % (0.5-1.5)
[2022-08-08 15:52] LABS: Iron 50 ug/dL (50-170); Iron Binding Capacity, Total 145 mcg/dL (265-497)
[2022-08-08] MEDS: Atorvastatin Calcium 40 MG TAB PO SCH (21:21)
[2022-08-08] MEDS: Melatonin 3 MG TAB PO PRN (21:21)
[2022-08-09 05:03] LABS: #Basophils 0.1 thou/uL (0.0-0.2); #Eosinphils 0.8 thou/uL (0.0-0.7); #Lymphocytes 3.1 thou/uL (1.20-3.40); #Monocytes 1.3 thou/uL (0.11-0.59); #Neutrophils 6.3 thou/uL (1.40-6.50); %Basophils 0.5 % (0.0-1.0); %Eosinophils 6.9 % (0.0-10.0); %Lymphocytes 26.6 % (21.0-51.0); %Monocytes 11.5 % (0.0-10.0); %Neutrophils 54.6 % (42.0-75.0); Hemoglobin 8.6 g/dL (12.0-16.0); Mean Corpuscular HGB CONC 32.8 g/dL (32.0-36.0); Mean Corpuscular Hemoglobin 30.2 pg (27.0-31.0); Mean Corpuscular Volume 91.8 fl (78.0-98.0); Mean Platelet Volume 7.3 fL (7.4-10.4); Platelet Count 168 10x3/uL (130-400); RBC Distribution Width 14.8 % (11.5-14.5); Red Blood Cell (RBC) Count 2.84 mill/uL (4.20-5.40); White Blood Cell (WBC) Count 11.5 10x3/uL (4.8-10.8)
[2022-08-09 05:23] LABS: ALT (SGPT) 20 U/L (8-55); AST (SGOT) 18 U/L (5-34); Albumin 2.9 g/dL (3.4-4.8); Alkaline Phosphatase 401 U/L (40-110); Anion Gap 13 mmol/L (10-20); BUN (Urea Nitrogen) 27 mg/dL (9.8-20.1); Bilirubin, Total Less than 0.2 mg/dL (0.2-1.2); Calc. Creatinine Clearance 28 mL/min (70-130); Calcium 8.8 mg/dL (7.8-10.44); Carbon Dioxide 28 mmol/L (23-31); Chloride 101 mmol/L (98-107); Estimated GFR 28; Globulin 3.1 g/dL (2.4-3.5); Glucose 85 mg/dL (80-115); Potassium 4.1 mmol/L (3.5-5.1); Sodium 138 mmol/L (136-145)
[2022-08-09 09:11] LABS: #Basophils 0.1 thou/uL (0.0-0.2); #Eosinphils 0.8 thou/uL (0.0-0.7); #Lymphocytes 2.5 thou/uL (1.20-3.40); #Monocytes 1.3 thou/uL (0.11-0.59); #Neutrophils 5.9 thou/uL (1.40-6.50); %Basophils 0.5 % (0.0-1.0); %Eosinophils 7.6 % (0.0-10.0); %Lymphocytes 23.3 % (21.0-51.0); %Monocytes 12.5 % (0.0-10.0); %Neutrophils 56.1 % (42.0-75.0); Hemoglobin 8.7 g/dL (12.0-16.0); Mean Corpuscular HGB CONC 34.6 g/dL (32.0-36.0); Mean Corpuscular Hemoglobin 32.2 pg (27.0-31.0); Mean Platelet Volume 8.6 fL (7.4-10.4); Platelet Count 133 10x3/uL (130-400); RBC Distribution Width 14.9 % (11.5-14.5); Red Blood Cell (RBC) Count 2.71 mill/uL (4.20-5.40); White Blood Cell (WBC) Count 10.5 10x3/uL (4.8-10.8)
[2022-08-09] MEDS: Heparin 5,000 UNITS/ML VIAL SC SCH ×3 (09:34→21:47)
[2022-08-09] MEDS: Thiamine 100 MG TAB PO SCH (09:35)
[2022-08-09] MEDS: Amlodipine 10 MG TAB PO SCH (09:35)
[2022-08-09] MEDS: cefTRIAXone\\ROCEPHIN 1 GM in Sodium Chloride 0.9% 100 ML IVPB SCH (09:35)
[2022-08-09] MEDS: Pantoprazole 40 MG VIAL IVP SCH ×2 (09:35→21:48)
[2022-08-09] MEDS: Multivit, Therapeutic 1 TAB PO SCH (09:36)
[2022-08-09] MEDS: Sodium Bicarbonate Tab 325 MG TAB PO SCH ×3 (09:36→21:47)
[2022-08-09] MEDS: Folic Acid 1 MG TAB PO SCH (09:36)
[2022-08-09] MEDS: Escitalopram Oxalate 20 mg Tablet PO SCH (09:36)
[2022-08-09] MEDS: Lorazepam 0.5 MG TAB PO PRN (15:10)
[2022-08-09] MEDS: Metamucil PACK PO SCH (21:47)
[2022-08-09] MEDS: Atorvastatin Calcium 40 MG TAB PO SCH (21:47)
[2022-08-09] MEDS: Melatonin 3 MG TAB PO PRN (21:52)
[2022-08-09] MEDS: Nicotine 14 MG PATCH TD PRN (21:52)
[2022-08-10 05:06] LABS: ALT (SGPT) 22 U/L (8-55); AST (SGOT) 24 U/L (5-34); Albumin 2.8 g/dL (3.4-4.8); Alkaline Phosphatase 356 U/L (40-110); Anion Gap 13 mmol/L (10-20); BUN (Urea Nitrogen) 27 mg/dL (9.8-20.1); Bilirubin, Total 0.2 mg/dL (0.2-1.2); Calc. Creatinine Clearance 27 mL/min (70-130); Calcium 8.8 mg/dL (7.8-10.44); Carbon Dioxide 30 mmol/L (23-31); Chloride 102 mmol/L (98-107); Estimated GFR 27; Globulin 3.3 g/dL (2.4-3.5); Glucose 96 mg/dL (80-115); Potassium 4.3 mmol/L (3.5-5.1); Protein, Total 6.1 g/dL (5.8-8.1); Sodium 141 mmol/L (136-145)
[2022-08-10 05:07] LABS: #Eosinphils 0.9 thou/uL (0.0-0.7); #Lymphocytes 2.8 thou/uL (1.20-3.40); #Monocytes 1.4 thou/uL (0.11-0.59); #Neutrophils 5.5 thou/uL (1.40-6.50); %Basophils 0.3 % (0.0-1.0); %Eosinophils 8.3 % (0.0-10.0); %Lymphocytes 26.1 % (21.0-51.0); %Neutrophils 52.2 % (42.0-75.0); Hemoglobin 8.3 g/dL (12.0-16.0); Mean Corpuscular HGB CONC 31.8 g/dL (32.0-36.0); Mean Corpuscular Hemoglobin 29.5 pg (27.0-31.0); Mean Platelet Volume 7.9 fL (7.4-10.4); Platelet Count 160 10x3/uL (130-400); RBC Distribution Width 14.9 % (11.5-14.5); Red Blood Cell (RBC) Count 2.81 mill/uL (4.20-5.40); White Blood Cell (WBC) Count 10.5 10x3/uL (4.8-10.8)
[2022-08-10] MEDS: Metamucil PACK PO SCH ×2 (08:39→22:47)
[2022-08-10] MEDS: Sodium Bicarbonate Tab 325 MG TAB PO SCH ×3 (08:40→22:48)
[2022-08-10] MEDS: cefTRIAXone\\ROCEPHIN 1 GM in Sodium Chloride 0.9% 100 ML IVPB SCH (08:40)
[2022-08-10] MEDS: Pantoprazole 40 MG VIAL IVP SCH ×2 (08:40→22:48)
[2022-08-10] MEDS: Amlodipine 10 MG TAB PO SCH (08:41)
[2022-08-10] MEDS: Folic Acid 1 MG TAB PO SCH (08:41)
[2022-08-10] MEDS: Thiamine 100 MG TAB PO SCH (08:41)
[2022-08-10] MEDS: Escitalopram Oxalate 20 mg Tablet PO SCH (08:41)
[2022-08-10] MEDS: Saccharomyces boulardii 250 MG CAP PO SCH (08:41)
[2022-08-10] MEDS: Multivit, Therapeutic 1 TAB PO SCH (08:41)
[2022-08-10] MEDS: Heparin 5,000 UNITS/ML VIAL SC SCH ×3 (08:42→22:59)
[2022-08-10 11:48] LABS: Campy jejuni + coli by PCR Negative (Negative); STEC Shiga Toxin 1+2 Negative (Negative); Salmonella spp. by PCR Negative (Negative); Shigella spp + EIEC by PCR Negative (Negative)
[2022-08-10] MEDS: Lorazepam 0.5 MG TAB PO PRN (13:59)
[2022-08-10] MEDS: Gabapentin 100 MG CAP PO SCH (22:49)
[2022-08-10] MEDS: Atorvastatin Calcium 40 MG TAB PO SCH (22:49)
[2022-08-11] MEDS: Melatonin 3 MG TAB PO PRN (00:32)
[2022-08-11 05:48] LABS: #Basophils 0.1 thou/uL (0.0-0.2); #Eosinphils 0.9 thou/uL (0.0-0.7); #Lymphocytes 3.2 thou/uL (1.20-3.40); #Monocytes 1.6 thou/uL (0.11-0.59); #Neutrophils 5.6 thou/uL (1.40-6.50); %Basophils 0.6 % (0.0-1.0); %Eosinophils 7.9 % (0.0-10.0); %Lymphocytes 28.2 % (21.0-51.0); %Monocytes 13.8 % (0.0-10.0); %Neutrophils 49.5 % (42.0-75.0); Hemoglobin 7.8 g/dL (12.0-16.0); Mean Corpuscular HGB CONC 32.1 g/dL (32.0-36.0); Mean Corpuscular Hemoglobin 30.3 pg (27.0-31.0); Mean Corpuscular Volume 94.2 fl (78.0-98.0); Mean Platelet Volume 8.1 fL (7.4-10.4); Platelet Count 149 10x3/uL (130-400); RBC Distribution Width 14.9 % (11.5-14.5); Red Blood Cell (RBC) Count 2.56 mill/uL (4.20-5.40); White Blood Cell (WBC) Count 11.3 10x3/uL (4.8-10.8)
[2022-08-11 06:05] LABS: ALT (SGPT) 19 U/L (8-55); AST (SGOT) 22 U/L (5-34); Albumin 2.7 g/dL (3.4-4.8); Alkaline Phosphatase 300 U/L (40-110); Anion Gap 10 mmol/L (10-20); BUN (Urea Nitrogen) 25 mg/dL (9.8-20.1); Bilirubin, Total Less than 0.2 mg/dL (0.2-1.2); Calc. Creatinine Clearance 29 mL/min (70-130); Calcium 8.6 mg/dL (7.8-10.44); Carbon Dioxide 30 mmol/L (23-31); Chloride 102 mmol/L (98-107); Estimated GFR 30; Glucose 108 mg/dL (80-115); Protein, Total 5.7 g/dL (5.8-8.1); Sodium 137 mmol/L (136-145)
[2022-08-11] MEDS: cefTRIAXone\\ROCEPHIN 1 GM in Sodium Chloride 0.9% 100 ML IVPB SCH (09:07)
[2022-08-11] MEDS: Heparin 5,000 UNITS/ML VIAL SC SCH ×2 (09:07→16:42)
[2022-08-11] MEDS: Metamucil PACK PO SCH (09:08)
[2022-08-11] MEDS: Sodium Bicarbonate Tab 325 MG TAB PO SCH ×2 (09:08→18:22)
[2022-08-11] MEDS: Escitalopram Oxalate 20 mg Tablet PO SCH (09:08)
[2022-08-11] MEDS: Pantoprazole 40 MG VIAL IVP SCH (09:08)
[2022-08-11] MEDS: Gabapentin 100 MG CAP PO SCH ×2 (09:08→18:22)
[2022-08-11] MEDS: Saccharomyces boulardii 250 MG CAP PO SCH (09:08)
[2022-08-11] MEDS: Multivit, Therapeutic 1 TAB PO SCH (09:08)
[2022-08-11] MEDS: Amlodipine 10 MG TAB PO SCH (09:08)
[2022-08-11] MEDS: Folic Acid 1 MG TAB PO SCH (09:08)
[2022-08-11] MEDS: Thiamine 100 MG TAB PO SCH (10:17)
[2022-08-11 15:59] VITALS: BP 141/62; TEMP 97.8
[2022-08-11] MEDS ORDERED: Ferrous Sulfate 325 MG TAB PO SCH (17:00)
== END 2022-08-11 18:42 | disposition home or self-care (01) | DRG 312 ==
LOC: ERS 22:57 → ERHOLD 08-04 02:30 → 2NO 08-04 14:29
PROVIDERS: ADMIT Internal Medicine; ATTEND Internal Medicine
PROC: HZ2ZZZZ Detoxification Services for Substance Abuse Treatment (ICD-10-PCS; principal; 2022-08-04)
DX: I95.1 Orthostatic hypotension (principal); N12 Tubulo-interstitial nephritis, not specified as acute or chronic; E87.20 Acidosis, unspecified; N17.9 Acute kidney failure, unspecified; N18.4 Chronic kidney disease, stage 4 (severe); J44.9 Chronic obstructive pulmonary disease, unspecified; R79.89 Other specified abnormal findings of blood chemistry; D63.1 Anemia in chronic kidney disease; I70.1 Atherosclerosis of renal artery; M79.672 Pain in left foot; F17.210 Nicotine dependence, cigarettes, uncomplicated; E86.0 Dehydration; F10.10 Alcohol abuse, uncomplicated; I08.2 Rheumatic disorders of both aortic and tricuspid valves; M43.12 Spondylolisthesis, cervical region; I12.9 Hypertensive chronic kidney disease with stage 1 through stage 4 chronic kidney disease, or unspecified chronic kidney disease; Z88.1 Allergy status to other antibiotic agents; Z88.2 Allergy status to sulfonamides; Z88.8 Allergy status to other drugs, medicaments and biological substances; Z79.899 Other long term (current) drug therapy; Z79.82 Long term (current) use of aspirin; Z86.73 Personal history of transient ischemic attack (TIA), and cerebral infarction without residual deficits; Z98.890 Other specified postprocedural states; Z87.440 Personal history of urinary (tract) infections
CPT/HCPCS: 36415; 70450; 70551; 72125; 72141; 72170; 74176; 76705; 80048; 80053; 80076; 80306; 80307; 81001; 82274; 82728; 82805; 82977; 83010; 83540; 83550; 83735; 84100; 84443; 84484; 85025; 85046; 87077; 87086; 87186; 87505; 90471; 90715; 93005; 93306; 93923; C9113; J0696; J1644; J2060; J3411; J3475; J3490; J7050; J7070; J7120